=== PATIENT | male | born 1960 | race Caucasian/White ===

== ENCOUNTER 2020-04-26 11:31 | Outpatient (REF) | payer MEDICARE, MEDICAID, SELFPAY ==
[2020-04-26 13:08] LABS: Anion Gap 15 (12-20); Blood Urea Nitrogen 38 mg/dL (9-16); Calcium 9.1 mg/dL (8.4-10.2); Carbon Dioxide 25 mmol/L (22-29); Chloride 104 mmol/L (96-108); Estimated Glomerular Filt Rate 34; Potassium 4.6 mmol/l (3.3-5.1); Sodium 139 mmol/L (135-145)
== END 2020-04-26 11:32 | disposition home or self-care (01) ==
LOC: HO.LAB 11:31
PROVIDERS: PCP Internal Medicine; Visit Provider Internal Medicine Hypertension Specialist
DX: N18.30 Chronic kidney disease, stage 3 unspecified (principal); D63.1 Anemia in chronic kidney disease
CPT/HCPCS: 80051; 82310; 82565; 84520

== ENCOUNTER 2020-05-07 21:12 | Observation (INO) | payer MEDICARE, MEDICAID, SELFPAY ==
--- NOTE | 2020-05-07 | ECG_ITS ---
Test Reason : CP Blood Pressure : / mmHG Vent. Rate : 072 BPM Atrial Rate : 081 BPM P-R Int : 000 ms QRS Dur : 082 ms QT Int : 378 ms P-R-T Axes : 000 -38 126 degrees QTc Int : 413 ms Atrial fibrillation with a competing junctional pacemaker Left anterior fascicular block Inferior infarct , age undetermined ST & T wave abnormality, consider lateral ischemia Abnormal ECG When compared with ECG of 07-MAY-2020 21:17, No significant changes seen Referred By: Generic ED Physician Electronically Signed By:KRISTAL MENDEZ MD
[2020-05-07 22:01] VITALS: BP 125/69; PULSE 69; RESP 17; TEMP 36.3; O2SAT 97; BMI 86.7
--- NOTE | 2020-05-07 22:09 | XR_ITS ---
EXAMINATION: XR CHEST CLINICAL INFORMATION: Chest pain COMPARISON: 01/26/2019 TECHNIQUE: Frontal view of the chest was obtained. FINDINGS: Again seen is cardiomegaly and mild upper zone redistribution suggesting elevated left ventricular end-diastolic pressure and mild pulmonary vascular congestion. No effusions are seen. No infiltrates are seen. Compared to the prior study, appearances are quite similar. XR/XR chest 1V IMPRESSION: Cardiomegaly with mild pulmonary vascular congestion.
--- NOTE | 2020-05-07 22:10 | ED_ITS ---
HPI - Chest Pain General Chief Complaint: Chest Pain Stated Complaint: chest pain Time Seen by Provider: 05/07/20 22:09 History of Present Illness HPI narrative: Patient is a 59-year-old male with a history of CVA. History of diabetes, hypertension. Presents today with having chest pain since yesterday that is on the left side grossly arm associated with shortness of breath. Worsened with ambulation. No cough and no congestion or upper respiratory symptoms. Related Data Home Medications Medication Instructions Recorded Confirmed Humulin R U-500 (Conc) Insulin 6 units SUBCUT DIRECTED 05/08/20 05/08/20 amitriptyline 1 tab PO DAILY 05/08/20 05/08/20 amlodipine-olmesartan 1 tab PO DAILY 05/08/20 05/08/20 atorvastatin 1 tab PO DAILY 05/08/20 05/08/20 digoxin 1 tab PO DAILY 05/08/20 05/08/20 dulaglutide [Trulicity] 1 mg SUBCUT QWEEK 05/08/20 05/08/20 hydralazine 1 tab PO BID 05/08/20 05/08/20 insulin regular hum U-500 conc 18 unit SUBCUT QAM 05/08/20 05/08/20 [Humulin R U-500 (Conc) Insulin] isosorbide mononitrate 1 tab PO DAILY 05/08/20 05/08/20 metoprolol succinate 1 tab PO DAILY 05/08/20 05/08/20 torsemide 20 mg PO DAILY 05/08/20 05/08/20 warfarin 1 - 3 tab PO DAILY 05/08/20 05/08/20 Allergies Allergy/AdvReac Type Severity Reaction Status Date / Time No Known Allergies Allergy Unknown NKDA Unverified 03/18/20 15:01 Review of Systems Review of Systems: Constitutional: No Weight loss, No Fever, No Chills, No Night Sweats, No Fatigue, No Malaise ENT/Mouth: No Hearing loss, No Ear Pain, No Nasal Congestion, No Sinus Pain, No Hoarseness, No sore throat, No Rhinorrhea, No Swallowing Difficulty Eyes: No Eye Pain, No Swelling, No Redness, No Foreign Body, No Discharge, No Vision Changes Cardiovascular: Positive Chest Pain, positive SOB, positive Dyspnea on Exertion, No Orthopnea, No Edema, No Palpitations Respiratory: No Cough, No Sputum, No Wheezing, No Smoke Exposure, No Dyspnea Gastrointestinal: No Nausea, No Vomiting, No Diarrhea, No Constipation, No abdominal Pain, No Hematochezia, No Melena Genitourinary: no irregular bleeding, No Dysuria, No Urinary Frequency, No Hematuria, No Urinary Incontinence, No Urgency, No Flank Pain, No Urinary Flow Changes, No Hesitancy Musculoskeletal: No joint pain, No Myalgias, No Joint Swelling Skin: No Skin Lesions, No rash Neuro: No Weakness, No Numbness, No Paresthesias, No Loss of Consciousness, No Dizziness, No Headache Psych: No Anxiety/Panic, No Depression, No SI/HI/AH/VH, No Social Issues, Heme/Lymph: No Bruising, No Bleeding,No Lymphadenopathy Endocrine: No Polyuria, No Polydipsia, No Temperature Intolerance Yes all other systems are reviewed and are negative [facility] Past Medical History Attestation statement: The following information was validated with the patient. Medical History CHF (congestive heart failure) Diabetes Heart attack HTN (hypertension) Social History Social History Alcohol intake: never Smoked in Last 30 Days: No Use of substances other than those prescribed or required for medical reasons: No Advance Directives: No Advance Directives Information Provided: No Physical Exam Vital Signs: Vital Signs: Last Vital Signs Temp 98.5 F 05/08/20 03:44 Pulse 62 05/08/20 03:44 Resp 18 05/08/20 03:44 BP 138/89 05/08/20 03:44 Pulse Ox 94 05/08/20 03:44 Body Mass Index 86.7 Appearance: Alert. Oriented X3. No acute distress. Eyes: Pupils equal, round and reactive to light. ENT: Pharynx normal. Neck: Normal inspection. Neck supple. No lymph nodes noted. No crepitus CVS: Normal heart rate and rhythm. Pulses normal. Normal S1 and S2 Respiratory: No respiratory distress. Breath sounds normal. No Wheezing. No rales Abdomen: Soft and nontender. No rigidity. No distention. good BS x4 Skin: Skin warm and dry. Normal skin color. Normal skin turgor. Extremities: No lower extremity edema. Neurovascular intact to all extremities. No Lacerations. No Rash Neuro: Oriented X 3. No motor deficit. No sensory deficit. Moving all extermities. No slurred speech MDM - Chest Pain MDM Narrative Medical decision making narrative: Positive atrial fibrillation with chest pain. Patient's 1st set of troponin was negative. Nitro makes a symptom a little better. Will admit patient for further evaluation given history of TIA/CVA history of diabetes poorly controlled. Chest pain radiating to the arm with shortness of breath Medical Records Data Attestation: I reviewed the patient's medical records. Lab Data Attestation: I reviewed the patient's lab results. Result diagrams: 05/07/20 22:14 05/07/20 22:14 Labs: Lab Results 05/07/20 05/07/20 05/07/20 Range/Units 22:14 22:14 22:14 WBC 10.0 (4.8-10.8) X10*3/uL RBC 5.78 (4.60-5.80) X10*6/uL Hgb 15.8 (14.0-18.0) g/dl Hct 50.0 (42-52) % MCV 86.5 (80-98) fL MCH 27.3 (27.0-33.0) pg MCHC 31.6 (31.0-36.0) g/dl RDW 15.3 (11.0-16.0) % Plt Count 329 (160-400) X10*3/uL MPV 9.8 (9.4-12.4) fL Immature Gran % (Auto) 0.6 H (0.0-0.4) % Neut % (Auto) 64.1 (45-73) % Lymph % (Auto) 20.8 (20-40) % [place] % (Auto) 10.3 (2-11) % Eos % (Auto) 3.2 (0-4) % Baso % (Auto) 1.0 (0-2) % Lymph # (Auto) 2.1 (1.2-4.9) X10*3/uL [place] # (Auto) 1.0 (0.1-1.2) X10*3/uL Eos # (Auto) 0.3 (0.0-0.4) X10*3/uL Baso # (Auto) 0.1 (0.0-0.2) X10*3/uL Abs Immat Gran (auto) 0.06 H (0.00-0.03) X10*3/uL Absolute Neuts (auto) 6.4 (2.0-8.3) X10*3/uL Absolute Nucleated RBC 0.000 (0.0-0.012) X10*3/uL Nucleated RBC % (auto) 0.0 (0.0-0.2) /100WBC PT 25.5 H (10.8-13.0) SEC INR 2.1 H (0.9-1.1) Hold Blue Top SEE NOTE Sodium 136 (135-145) mmol/L Potassium 5.4 H (3.3-5.1) mmol/l Chloride 101 (96-108) mmol/L Carbon Dioxide 26 (22-29) mmol/L Anion Gap 14 (12-20) BUN 54 H (9-16) mg/dL Creatinine 2.28 H (0.5-1.4) mg/dL Estim Creat Clear Calc 79.8 Estimated GFR 30 Random Glucose 379 H* (60-115) mg/dL Calcium 8.8 (8.4-10.2) mg/dL Troponin I High Sens (<3.5-35.0) ng/L Digoxin (0.8-2.0) ng/mL Coronavirus (PCR) (Negative) 05/07/20 05/07/20 05/07/20 Range/Units 22:14 22:41 23:14 WBC (4.8-10.8) X10*3/uL RBC (4.60-5.80) X10*6/uL Hgb (14.0-18.0) g/dl Hct (42-52) % MCV (80-98) fL MCH (27.0-33.0) pg MCHC (31.0-36.0) g/dl RDW (11.0-16.0) % Plt Count (160-400) X10*3/uL MPV (9.4-12.4) fL Immature Gran % (Auto) (0.0-0.4) % Neut % (Auto) (45-73) % Lymph % (Auto) (20-40) % [place] % (Auto) (2-11) % Eos % (Auto) (0-4) % Baso % (Auto) (0-2) % Lymph # (Auto) (1.2-4.9) X10*3/uL [place] # (Auto) (0.1-1.2) X10*3/uL Eos # (Auto) (0.0-0.4) X10*3/uL Baso # (Auto) (0.0-0.2) X10*3/uL Abs Immat Gran (auto) (0.00-0.03) X10*3/uL Absolute Neuts (auto) (2.0-8.3) X10*3/uL Absolute Nucleated RBC (0.0-0.012) X10*3/uL Nucleated RBC % (auto) (0.0-0.2) /100WBC PT (10.8-13.0) SEC INR (0.9-1.1) Hold Blue Top Sodium (135-145) mmol/L Potassium (3.3-5.1) mmol/l Chloride (96-108) mmol/L Carbon Dioxide (22-29) mmol/L Anion Gap (12-20) BUN (9-16) mg/dL Creatinine (0.5-1.4) mg/dL Estim Creat Clear Calc Estimated GFR Random Glucose (60-115) mg/dL Calcium (8.4-10.2) mg/dL Troponin I High Sens 16.6 (<3.5-35.0) ng/L Digoxin < 0.3 L (0.8-2.0) ng/mL Coronavirus (PCR) NEGATIVE (Negative) 05/08/20 Range/Units 01:22 WBC (4.8-10.8) X10*3/uL RBC (4.60-5.80) X10*6/uL Hgb (14.0-18.0) g/dl Hct (42-52) % MCV (80-98) fL MCH (27.0-33.0) pg MCHC (31.0-36.0) g/dl RDW (11.0-16.0) % Plt Count (160-400) X10*3/uL MPV (9.4-12.4) fL Immature Gran % (Auto) (0.0-0.4) % Neut % (Auto) (45-73) % Lymph % (Auto) (20-40) % [place] % (Auto) (2-11) % Eos % (Auto) (0-4) % Baso % (Auto) (0-2) % Lymph # (Auto) (1.2-4.9) X10*3/uL [place] # (Auto) (0.1-1.2) X10*3/uL Eos # (Auto) (0.0-0.4) X10*3/uL Baso # (Auto) (0.0-0.2) X10*3/uL Abs Immat Gran (auto) (0.00-0.03) X10*3/uL Absolute Neuts (auto) (2.0-8.3) X10*3/uL Absolute Nucleated RBC (0.0-0.012) X10*3/uL Nucleated RBC % (auto) (0.0-0.2) /100WBC PT (10.8-13.0) SEC INR (0.9-1.1) Hold Blue Top Sodium (135-145) mmol/L Potassium (3.3-5.1) mmol/l Chloride (96-108) mmol/L Carbon Dioxide (22-29) mmol/L Anion Gap (12-20) BUN (9-16) mg/dL Creatinine (0.5-1.4) mg/dL Estim Creat Clear Calc Estimated GFR Random Glucose (60-115) mg/dL Calcium (8.4-10.2) mg/dL Troponin I High Sens 15.1 (<3.5-35.0) ng/L Digoxin (0.8-2.0) ng/mL Coronavirus (PCR) (Negative) ECG Data ECG #1: Attestation: I personally reviewed and interpreted this ECG as follows: ECG interpretation date: 05/07/20 Interpretation: Atrial fibrillation pattern heart rate was approximately 80 with a left axis deviation to Q-waves in the inferior leads. Discharge Plan Discharge Clinical Impression: Chest pain Prescriptions: No Action atorvastatin 80 mg tablet 1 tab PO DAILY RF: 0 torsemide 20 mg tablet 20 mg PO DAILY RF: 0 isosorbide mononitrate 30 mg tablet extended release 24 hr 1 tab PO DAILY RF: 0 warfarin 2.5 mg tablet 1 - 3 tab PO DAILY RF: 0 hydralazine 25 mg tablet 1 tab PO BID RF: 0 amitriptyline 50 mg tablet 1 tab PO DAILY RF: 0 Humulin R U-500 (Conc) Insulin 500 unit/mL solution 18 unit subcut QAM RF: 0 digoxin 125 mcg (0.125 mg) tablet 1 tab PO DAILY RF: 0 metoprolol succinate 25 mg tablet extended release 24 hr 1 tab PO DAILY RF: 0 amlodipine-olmesartan 10-40 mg tablet 1 tab PO DAILY RF: 0 Trulicity 1.5 mg/0.5 mL pen injector 1 mg subcut QWEEK RF: 0 Humulin R U-500 (Conc) Insulin 6 units subcut DIRECTED RF: 0
[2020-05-07 22:22] LABS: MANUAL DIFF FLAG NO
[2020-05-07 22:25] LABS: Basophils Absolute Auto 0.1 X10*3/uL (0.0-0.2); Eosinophils Absolute Auto 0.3 X10*3/uL (0.0-0.4); Eosinophils Percent Auto 3.2 % (0-4); Hemoglobin 15.8 g/dl (14.0-18.0); Imm Gran Abs Auto 0.06 X10*3/uL (0.00-0.03); Imm Gran Pct Auto 0.6 % (0.0-0.4); Lymphocytes Absolute Auto 2.1 X10*3/uL (1.2-4.9); Lymphocytes Percent Auto 20.8 % (20-40); Mean Corpuscular HGB Conc 31.6 g/dl (31.0-36.0); Mean Corpuscular Hemoglobin 27.3 pg (27.0-33.0); Mean Corpuscular Volume 86.5 fL (80-98); Mean Platelet Volume 9.8 fL (9.4-12.4); Monocytes Percent Auto 10.3 % (2-11); Neutrophils Absolute Auto 6.4 X10*3/uL (2.0-8.3); Neutrophils Percent Auto 64.1 % (45-73); Platelet Count 329 X10*3/uL (160-400); Red Blood Count 5.78 X10*6/uL (4.60-5.80); Red Cell Distribution Width 15.3 % (11.0-16.0)
[2020-05-07 22:29] VITALS: BP 136/71; PULSE 65
[2020-05-07] MEDS: Nitroglycerin 2 % Oint 1 GM Packet 1 INCH TRANSDERMA (22:29)
[2020-05-07] MEDS: Aspirin 81 MG TAB.CHEW 324 MG PO (22:29)
[2020-05-07 22:30] VITALS: BP 136/71; PULSE 66; RESP 18; O2SAT 99
[2020-05-07 22:47] LABS: Anion Gap 14 (12-20); Blood Urea Nitrogen 54 mg/dL (9-16); Calcium 8.8 mg/dL (8.4-10.2); Carbon Dioxide 26 mmol/L (22-29); Chloride 101 mmol/L (96-108); Creatinine Clr Calc Pharmacy 79.8; Estimated Glomerular Filt Rate 30; Glucose Random 379 mg/dL (60-115); Potassium 5.4 mmol/l (3.3-5.1); Sodium 136 mmol/L (135-145)
[2020-05-07 22:49] LABS: INTERNATIONAL NORM RATIO 2.1 (0.9-1.1); Prothrombin Time 25.5 SEC (10.8-13.0); Troponin-I High Sensitivity 16.6 ng/L (<3.5-35.0)
--- NOTE | 2020-05-07 22:50 | PC.NURSE ---
PT COMING FROM HOME VIA PRIVATE VEHICLE FOR COMPLAINTS OF PAIN X 2 DAYS. YESTERDAY PAIN WAS JUST IN LEFT SHOULDER. TODAY PAIN BECAME WORSE IN CHEST RADIATING TO LEFT ARM AND MAKING LEFT ARM NUMB. PT ARRIVES ALERT AND ORIENTED. NEURO INTACT. PT HAS HX OF DIABETES, HEART ATTACK, STROKE. PT VITALS WNL. LINED AND LABBED. GIVEN 324 ASA CHEWABLE AND 1 INCH NITRO APPLIED TO LEFT CHEST.
--- NOTE | 2020-05-07 23:12 | PC.NURSE ---
PT STATES NO RELIEF FROM NITRO PASTE. SWABBED FOR COVID,.
[2020-05-07 23:49] LABS: Digoxin < 0.3 ng/mL (0.8-2.0)
[2020-05-08] VITALS (12 sets, daily range): BP systolic 99–168; BP diastolic 58–89; PULSE 62–72; RESP 18–20; TEMP 36.3–37.2; O2SAT 90–99; BMI 40.6
--- NOTE | 2020-05-08 | CT_ITS ---
EXAMINATION: CT HEAD WITHOUT CONTRAST CLINICAL INFORMATION: Left arm numbness COMPARISON: CT head 01/26/2019 TECHNIQUE: Contiguous axial imaging was performed from the skull base to vertex without intravenous administration of contrast. This CT examination was performed using dose optimization techniques as appropriate, variously including the following: *Automated exposure control *Adjustment of mA and/or kV according to patient size (this includes techniques or standardized protocols for targeted exams where dose is matched to indication/reason for exam; i.e. extremities or head) *Use of iterative reconstruction technique DLP: 747 mGy-cm FINDINGS: Old infarct with focal encephalomalacia stable since prior exam involving the left posterior occipital lobe. There is no evidence of acute intracranial hemorrhage or acute territorial infarction. No abnormal mass effect or midline shift is seen. Reis to white matter differentiation is well preserved. No extra-axial fluid collections are identified. There is mild age-appropriate atrophy with prominence of the ventricles and the sulci. There are vascular calcifications of the internal carotid arteries bilaterally. The osseous structures and soft tissues are normal. The mastoid air cells and visualized portions of the paranasal sinuses are well aerated. CT/CT head/brain wo con IMPRESSION: No acute intracranial pathology. Chronic left [employer] territory infarct. No change since prior CAT scan 01/26/2019.
[2020-05-08] MEDS: HYDROmorphone HCl 0.5 MG/0.5 ML SYRINGE IVPUSH ×2 (00:17→04:28)
[2020-05-08 00:27] LABS: SARS COV2 PCR INHOUSE NEGATIVE (Negative)
--- NOTE | 2020-05-08 01:33 | PC.NURSE ---
pt repeat troponin sent. vitals wnl. nad noted. pain improved from dilaudid
[2020-05-08 02:30] LABS: Troponin-I High Sensitivity 15.1 ng/L (<3.5-35.0)
--- NOTE | 2020-05-08 03:44 | PC.NURSE ---
water given per request. pt states pain is coming back. otherwise nad vitals wnl
[2020-05-08] MEDS: Sodium Polystyrene Sulfon/Sorb 15 GM/60 ML ORAL.SUSP PO (04:15)
--- NOTE | 2020-05-08 04:16 | PM.IMHP ---
History of Present Illness Date of Service: 05/08/20 Chief Complaint: chest pain 59 y/o male with an extensive PMHX including CAD s/p ID in the past who presented from home c/o chest pain. Per history provided by the patient, for the past 2 days has been having a constant chest pain, pressure like, 8/10 in intensity, radiating to the left arm, associated with numbness, at rest. On presentation to the ED patient is found to be hemodynamically stable, no evidence of leukocytosis on cbc, INR 2.1 (therapeutic), K of 5.5 (s/p kayexalate per ED), creatinine of 2.28 (baseline), Firs troponin neg, Second pending. Decision for admission given significant cardiac hx and concerning symptoms for ACS. Patient seen and examined at the bedside, laying down in bed in no acute distress. ROS as above otherwise negative. Physical exam unremarkable. PMHX: 1- HTN 2-CAD with prior ID in the 3-DM 4-Afib on AC 5-Sleep apnea secondary to obesity hypoventilation syndrome 6-HLP 7-Peripheral neuropathy 8-CVA with minimal residual deficit in the past 9-polycythemia vera 10-diabetic foot ulcer s/p left foot toe removal 11- CHF with EF of 35% 12- CKD PSx: s/p cholecystectomy Toxic habits: No hx of alcohol abuse, smoking or IVDA Review of Systems Cardiovascular: Cardiovascular: Reports chest pain at rest Neurologic: Reports other (left upper extremity numbness when has chest pain) [facility] Medical History (Updated 05/08/20 @ 04:34 by Vincent Robins MD) CHF (congestive heart failure) Diabetes Heart attack HTN (hypertension) Functional capacity: independent ambulation Social History Alcohol intake: never Smoked in Last 30 Days: No Use of substances other than those prescribed or required for medical reasons: No Advance Directives: No Advance Directives Information Provided: No Meds Allergies Allergy/AdvReac Type Severity Reaction Status Date / Time No Known Allergies Allergy Unknown NKDA Unverified 03/18/20 15:01 Home Medications Medication Instructions Recorded Confirmed Type Humulin R U-500 (Conc) Insulin 6 units SUBCUT DIRECTED 05/08/20 05/08/20 History amitriptyline 1 tab PO DAILY 05/08/20 05/08/20 History amlodipine-olmesartan 1 tab PO DAILY 05/08/20 05/08/20 History atorvastatin 1 tab PO DAILY 05/08/20 05/08/20 History digoxin 1 tab PO DAILY 05/08/20 05/08/20 History dulaglutide [Trulicity] 1 mg SUBCUT QWEEK 05/08/20 05/08/20 History hydralazine 1 tab PO BID 05/08/20 05/08/20 History insulin regular hum U-500 conc 18 unit SUBCUT QAM 05/08/20 05/08/20 History [Humulin R U-500 (Conc) Insulin] isosorbide mononitrate 1 tab PO DAILY 05/08/20 05/08/20 History metoprolol succinate 1 tab PO DAILY 05/08/20 05/08/20 History torsemide 20 mg PO DAILY 05/08/20 05/08/20 History warfarin 1 - 3 tab PO DAILY 05/08/20 05/08/20 History Physical Exam Vital Signs and Narrative: Vital Signs: Last Vital Signs Temp 98.5 F 05/08/20 03:44 Pulse 62 05/08/20 03:44 Resp 18 05/08/20 03:44 BP 138/89 05/08/20 03:44 Pulse Ox 94 05/08/20 03:44 Body Mass Index 86.7 Const: General: cooperative, comfortable and no acute distress Orientation/consciousness: oriented to person, oriented to place, oriented to time and patient oriented x3 HENMT: Head: Yes normal to inspection Eyes: General: appearance normal, both eyes and all related structures Neck: Yes normal visual inspection Chest: Chest palpation & inspection: normal inspection of the chest Resp: Effort & Inspection: normal respiratory effort Cardio: Jugular venous distension: no JVD Rate: regular rate Rhythm: regular rhythm Heart sounds: S1 normal heart sound present and S2 normal heart sound present GI: Inspection: Yes normal to inspection Skin: General skin exam: no rashes or lesions noted Neuro: General: oriented to person, oriented to place, oriented to time and patient oriented x3 Motor exam (neuro): 5/5 motor strength present throughout Extrem: Left upper extremity: normal to inspection Psych: Appearance: grossly normal Results Labs CBC and Chem 7: 05/07/20 22:14 05/07/20 22:14 Labs: Laboratory Results - last 24 hr 05/07/20 05/07/20 05/07/20 22:14 22:14 22:14 MCV 86.5 MCH 27.3 MCHC 31.6 RDW 15.3 Plt Count 329 MPV 9.8 Immature Gran % (Auto) 0.6 H Neut % (Auto) 64.1 Lymph % (Auto) 20.8 [place] % (Auto) 10.3 Eos % (Auto) 3.2 Baso % (Auto) 1.0 Lymph # (Auto) 2.1 [place] # (Auto) 1.0 Eos # (Auto) 0.3 Baso # (Auto) 0.1 Abs Immat Gran (auto) 0.06 H Absolute Neuts (auto) 6.4 Absolute Nucleated RBC 0.000 Nucleated RBC % (auto) 0.0 PT 25.5 H INR 2.1 H Hold Blue Top SEE NOTE Anion Gap 14 Estim Creat Clear Calc 79.8 Estimated GFR 30 Random Glucose 379 H* Calcium 8.8 Troponin I High Sens Digoxin Coronavirus (PCR) 05/07/20 05/07/20 05/07/20 22:14 22:41 23:14 MCV MCH MCHC RDW Plt Count MPV Immature Gran % (Auto) Neut % (Auto) Lymph % (Auto) [place] % (Auto) Eos % (Auto) Baso % (Auto) Lymph # (Auto) [place] # (Auto) Eos # (Auto) Baso # (Auto) Abs Immat Gran (auto) Absolute Neuts (auto) Absolute Nucleated RBC Nucleated RBC % (auto) PT INR Hold Blue Top Anion Gap Estim Creat Clear Calc Estimated GFR Random Glucose Calcium Troponin I High Sens 16.6 Digoxin < 0.3 L Coronavirus (PCR) NEGATIVE 05/08/20 01:22 MCV MCH MCHC RDW Plt Count MPV Immature Gran % (Auto) Neut % (Auto) Lymph % (Auto) [place] % (Auto) Eos % (Auto) Baso % (Auto) Lymph # (Auto) [place] # (Auto) Eos # (Auto) Baso # (Auto) Abs Immat Gran (auto) Absolute Neuts (auto) Absolute Nucleated RBC Nucleated RBC % (auto) PT INR Hold Blue Top Anion Gap Estim Creat Clear Calc Estimated GFR Random Glucose Calcium Troponin I High Sens 15.1 Digoxin Coronavirus (PCR) Imaging Radiologist's Impressions: Impressions Chest X-Ray 05/07/20 22:09 IMPRESSION: Cardiomegaly with mild pulmonary vascular congestion. Assessment and Plan (1) Chest pain: Status: Acute s/p nitro, dilaudid and aspirin 324 mg tablet per ED At present patient reports that continues with chest pain but is minimal compared to presentation Troponin neg x 1, second pending Follow up 2D echo in the am continue with aspirin home dose continue with nitroglycerin home dose Observation Cardiology consult in the am (2) CHF (congestive heart failure): Status: Acute continue with torsemide home dose monitor i and O's daily weights (3) HTN (hypertension): Status: Acute continue with amlodipine home dose continue with hydralazine home dose (4) Diabetes: Status: Acute Insulin regimen as ordered diabetic diet POCT glucose ACHS (5) Psychotic disorder: Status: Acute continue with amitryptiline home dose (6) Hyperlipidemia: Status: Acute continue with statin home dose (7) Afib: Status: Acute INR therapeutic continue with coumadin home dose continue with metoprolol home dose for rate control continue with digoxin home dose
--- NOTE | 2020-05-08 04:52 | PC.NURSE ---
report given at this time.
[2020-05-08 07:26] LABS: INTERNATIONAL NORM RATIO 2.1 (0.9-1.1); Prothrombin Time 25.1 SEC (10.8-13.0)
[2020-05-08 07:40] LABS: Glucose, Whole Blood 241 mg/dL (60-115)
[2020-05-08 08:10] LABS: Anion Gap 13 (12-20); Blood Urea Nitrogen 52 mg/dL (9-16); Calcium 8.5 mg/dL (8.4-10.2); Carbon Dioxide 29 mmol/L (22-29); Chloride 102 mmol/L (96-108); Creatinine Clr Calc Pharmacy 56.1; Estimated Glomerular Filt Rate 34; Glucose Random 237 mg/dL (60-115); Potassium 4.9 mmol/l (3.3-5.1); Sodium 139 mmol/L (135-145)
[2020-05-08] MEDS: Insulin Lispro 100 UNIT/ML 3 ML VIAL SUBCUT ×4 (08:13→20:52)
[2020-05-08] MEDS: Morphine Sulfate 2 MG/ML CARTRIDGE IVPUSH (08:40)
[2020-05-08] MEDS: 0.9 % Sodium Chloride Flush 3 ML SYRINGE IVFLUSH ×2 (08:41→15:59)
[2020-05-08] MEDS: Digoxin 0.125 MG TABLET PO (09:35)
[2020-05-08] MEDS: Amitriptyline HCl 50 MG TABLET PO (09:35)
[2020-05-08] MEDS: amLODIPine Besylate 10 MG TABLET PO (09:36)
[2020-05-08] MEDS: Atorvastatin Calcium 80 MG TABLET PO (09:36)
[2020-05-08] MEDS: Torsemide 20 MG TABLET PO (09:36)
[2020-05-08] MEDS: hydrALAZINE HCl 25 MG TABLET PO ×2 (09:37→20:37)
[2020-05-08] MEDS: Isosorbide Mononitrate 30 MG TAB.ER.24H PO (09:37)
--- NOTE | 2020-05-08 09:49 | MHC.CM.PN ---
CM met with Patient. Patient lives in a house with his 3 Caretakers (Funded by [facility], [facility])and he is functionally independent. Patient's O2 and CPAP are supplied through [facility]. Patient's goal is to return home with resumption of his present services and CM has initiated and will follow for dc planning. PCP is Dr. Jcarlos Melgar. ASIM addressed with Patient and original has been given to him and a copy has been placed on the chart.
--- NOTE | 2020-05-08 11:08 | PM.CNNEP ---
History of Present Illness Reason for Consult Consult date: 05/08/20 Reason for consult: ckd Chief Complaint Chief complaint: chest pain R/O ACS History of Present Illness Narrative: PT known to Dr Forbes for his CKD and now adm with MELISSA garduno. Getting card eval. No GH/dysuria. Breathing OK. 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 as cause of CKD Review of Systems Reports other (left upper extremity numbness when has chest pain) [facility] Past Medical History Medical History (Updated 05/08/20 @ 04:34 by Vincent Robins MD) CHF (congestive heart failure) Diabetes Heart attack HTN (hypertension) Functional capacity: independent ambulation Social History Social History Household Members: Caregiver Housing: House Do you presently have visiting nurse or other home services: Yes Alcohol intake: never Smoking Status: Never smoker Smoked in Last 30 Days: No Use of substances other than those prescribed or required for medical reasons: No Have you been hit, kicked, punched, or otherwise hurt by someone within the past year? If so, by whom?: No Do you feel safe in your current relationship?: No Current Relationship Is there a partner from a previous relationship who is making you feel unsafe now?: No Are you made to feel afraid or neglected: No Advance Directives: No Advance Directives Information Provided: No Do you have thoughts of harming others: None Do you have a plan to hurt others: No Plan Recently lost weight without trying: No service: No Current occupational status: disabled Meds Allergies Allergy/AdvReac Type Severity Reaction Status Date / Time No Known Allergies Allergy Unknown NKDA Verified 05/08/20 05:14 Home Medications Medication Instructions Recorded Confirmed Type Humulin R U-500 (Conc) Insulin 6 units SUBCUT DIRECTED 05/08/20 05/08/20 History amitriptyline 1 tab PO DAILY 05/08/20 05/08/20 History amlodipine-olmesartan 1 tab PO DAILY 05/08/20 05/08/20 History atorvastatin 1 tab PO DAILY 05/08/20 05/08/20 History digoxin 1 tab PO DAILY 05/08/20 05/08/20 History dulaglutide [Trulicity] 1 mg SUBCUT QWEEK 05/08/20 05/08/20 History hydralazine 1 tab PO BID 05/08/20 05/08/20 History insulin regular hum U-500 conc 18 unit SUBCUT QAM 05/08/20 05/08/20 History [Humulin R U-500 (Conc) Insulin] isosorbide mononitrate 1 tab PO DAILY 05/08/20 05/08/20 History metoprolol succinate 1 tab PO DAILY 05/08/20 05/08/20 History torsemide 20 mg PO DAILY 05/08/20 05/08/20 History warfarin 1 - 3 tab PO DAILY 05/08/20 05/08/20 History Physical Exam Vital Signs: Last Vital Signs Temp 97.4 F 05/08/20 07:44 Pulse 72 05/08/20 09:36 Resp 18 05/08/20 07:44 BP 153/75 H 05/08/20 09:36 Pulse Ox 94 05/08/20 07:44 Body Mass Index 40.6 Appearance: Alert. Oriented X3. No acute distress. Eyes: Pupils equal, round and reactive to light. ENT: Pharynx normal. Neck: Normal inspection. Neck supple. No lymph nodes noted. No crepitus CVS: Normal heart rate and rhythm. Pulses normal. Normal S1 and S2 Respiratory: No respiratory distress. Breath sounds normal. No Wheezing. No rales Abdomen: Soft and nontender. No rigidity. No distention. good BS x4 Skin: Skin warm and dry. Normal skin color. Normal skin turgor. Extremities: No lower extremity edema. Neurovascular intact to all extremities. No Lacerations. No Rash Neuro: Oriented X 3. No motor deficit. No sensory deficit. Moving all extermities. No slurred speech Const General: cooperative, comfortable and no acute distress Orientation/consciousness: oriented to person, oriented to place, oriented to time and patient oriented x3 HENMT Head: Yes normal to inspection Eyes General: appearance normal, both eyes and all related structures Neck Neck: Yes normal visual inspection Chest Chest palpation & inspection: normal inspection of the chest Resp Effort & Inspection: normal respiratory effort Cardio Jugular venous distension: no JVD Rate: regular rate Rhythm: regular rhythm Heart sounds: S1 normal heart sound present and S2 normal heart sound present GI Inspection: Yes normal to inspection Skin General skin exam: no rashes or lesions noted Neuro General: oriented to person, oriented to place, oriented to time and patient oriented x3 Motor exam (neuro): 5/5 motor strength present throughout Extrem Left upper extremity: normal to inspection Psych Appearance: grossly normal Results Lab Results Result Diagrams: 05/07/20 22:14 05/08/20 05:55 Lab results: Chemistry 05/07/20 05/08/20 22:14 05:55 Sodium 136 139 Potassium 5.4 H 4.9 Carbon Dioxide 26 29 BUN 54 H 52 H Creatinine 2.28 H 2.01 H Calcium 8.8 8.5 Hematology 05/07/20 22:14 WBC 10.0 Hgb 15.8 Plt Count 329 Assessment and Plan (1) Chest pain: Status: Acute (2) CHF (congestive heart failure): Status: Acute (3) HTN (hypertension): Status: Acute (4) Diabetes: Status: Acute (5) Psychotic disorder: Status: Acute (6) Hyperlipidemia: Status: Acute (7) Afib: Status: Acute 1. NIRAJ: multifact and SCr decr back to bsl 2. CKD 3: SCr 1.5-2.0; c/w DN 3. CP: w/u in progress 4. DM 5. HyperK: resolved off ARB 6. HTN: slt elevated and may need to incr BP meds REC: cint to hold arb for now; check Up/Cr ratio ( I will order); follw UOP/renal func;a void NSAIDs; protect non-dominat arm
--- NOTE | 2020-05-08 11:09 | PM.CNCAR ---
History of Present Illness History of Present Illness Date of Consult: May 08, 2020 Requesting physician: Craig Chappell Chief complaint: chest pain R/O ACS Narrative: 59-year-old gentleman with cardiomyopathy and ejection fraction of 30% who follows with Dr. Gigi Santiago in [place]. He said he had myocardial infarction when he was 22 years old. He is saying he also had a recent cardiac catheterization at [facility] when he was told that he has mild coronary artery disease. It appears he has nonischemic cardiomyopathy by his description. He also has atrial fibrillation and has been on Coumadin. He has background of stroke, hypertension, diabetes and psychotic disorder. He is now presenting because he has been experiencing a left-sided pressure-like feeling for more than 24 hours. He also has left arm numbness which has accompanied the chest discomfort. He has never had chest discomfort before. When he was 22 years old he reports that he had a heart attack but does not remember what symptoms he had then. By his report he did not have evidence of significant coronary disease on recent cardiac catheterization. He denies any indigestion or reflux like symptoms. He denies any dyspnea right now and denies orthopnea. He is reporting compliance with medications. Review of Systems Review of Systems: Persistent chest discomfort and left arm numbness for more than 24 hours. Neurologic: Reports other (left upper extremity numbness when has chest pain) [facility] Past Medical History Medical History (Updated 05/08/20 @ 11:16 by Coleman Burnett MD) CHF (congestive heart failure) Diabetes Heart attack HTN (hypertension) Functional capacity: independent ambulation Social History Social History Household Members: Caregiver Housing: House Do you presently have visiting nurse or other home services: Yes Alcohol intake: never Smoking Status: Never smoker Smoked in Last 30 Days: No Use of substances other than those prescribed or required for medical reasons: No Have you been hit, kicked, punched, or otherwise hurt by someone within the past year? If so, by whom?: No Do you feel safe in your current relationship?: No Current Relationship Is there a partner from a previous relationship who is making you feel unsafe now?: No Are you made to feel afraid or neglected: No Advance Directives: No Advance Directives Information Provided: No Do you have thoughts of harming others: None Do you have a plan to hurt others: No Plan Recently lost weight without trying: No service: No Current occupational status: disabled [employer] Allergies Allergy/AdvReac Type Severity Reaction Status Date / Time No Known Allergies Allergy Unknown NKDA Verified 05/08/20 05:14 Home Medications Medication Instructions Recorded Confirmed Type Humulin R U-500 (Conc) Insulin 6 units SUBCUT DIRECTED 05/08/20 05/08/20 History amitriptyline 1 tab PO DAILY 05/08/20 05/08/20 History amlodipine-olmesartan 1 tab PO DAILY 05/08/20 05/08/20 History atorvastatin 1 tab PO DAILY 05/08/20 05/08/20 History digoxin 1 tab PO DAILY 05/08/20 05/08/20 History dulaglutide [Trulicity] 1 mg SUBCUT QWEEK 05/08/20 05/08/20 History hydralazine 1 tab PO BID 05/08/20 05/08/20 History insulin regular hum U-500 conc 18 unit SUBCUT QAM 05/08/20 05/08/20 History [Humulin R U-500 (Conc) Insulin] isosorbide mononitrate 1 tab PO DAILY 05/08/20 05/08/20 History metoprolol succinate 1 tab PO DAILY 05/08/20 05/08/20 History torsemide 20 mg PO DAILY 05/08/20 05/08/20 History warfarin 1 - 3 tab PO DAILY 05/08/20 05/08/20 History Physical Exam Vital Signs: Vital Signs: Last Vital Signs Temp 97.4 F 05/08/20 07:44 Pulse 72 05/08/20 09:36 Resp 18 05/08/20 07:44 BP 153/75 H 05/08/20 09:36 Pulse Ox 94 05/08/20 07:44 Body Mass Index 40.6 GENERAL APPEARANCE: in no acute distress, well developed, well nourished. HEENT: unremarkable. HEAD: normocephalic, atraumatic. NECK/THYROID: no carotid bruit, no jugular venous distention. SKIN: no suspicious lesions, warm and dry. HEART: no murmurs, irregularly irregular rhythm, S1, S2 normal. LUNGS: clear to auscultation bilaterally. ABDOMEN: normal, bowel sounds present, soft, nontender, nondistended. EXTREMITIES: no clubbing, cyanosis, or edema. PERIPHERAL PULSES: equal. NEUROLOGIC: nonfocal, alert and oriented. PSYCH: mood/affect full range. Results Labs and Meds Result diagrams: 05/07/20 22:14 05/08/20 05:55 Lab results: Laboratory Results - last 24 hr 05/07/20 05/07/20 05/07/20 22:14 22:14 22:14 WBC 10.0 RBC 5.78 Hgb 15.8 Hct 50.0 MCV 86.5 MCH 27.3 MCHC 31.6 RDW 15.3 Plt Count 329 MPV 9.8 Immature Gran % (Auto) 0.6 H Neut % (Auto) 64.1 Lymph % (Auto) 20.8 Petroleum % (Auto) 10.3 Eos % (Auto) 3.2 Baso % (Auto) 1.0 Lymph # (Auto) 2.1 Petroleum # (Auto) 1.0 Eos # (Auto) 0.3 Baso # (Auto) 0.1 Abs Immat Gran (auto) 0.06 H Absolute Neuts (auto) 6.4 Absolute Nucleated RBC 0.000 Nucleated RBC % (auto) 0.0 PT 25.5 H INR 2.1 H Hold Blue Top SEE NOTE Sodium 136 Potassium 5.4 H Chloride 101 Carbon Dioxide 26 Anion Gap 14 BUN 54 H Creatinine 2.28 H Estim Creat Clear Calc 79.8 Estimated GFR 30 POC Glucose Random Glucose 379 H* Calcium 8.8 Troponin I High Sens Digoxin Coronavirus (PCR) 05/07/20 05/07/20 05/07/20 22:14 22:41 23:14 WBC RBC Hgb Hct MCV MCH MCHC RDW Plt Count MPV Immature Gran % (Auto) Neut % (Auto) Lymph % (Auto) Petroleum % (Auto) Eos % (Auto) Baso % (Auto) Lymph # (Auto) Petroleum # (Auto) Eos # (Auto) Baso # (Auto) Abs Immat Gran (auto) Absolute Neuts (auto) Absolute Nucleated RBC Nucleated RBC % (auto) PT INR Hold Blue Top Sodium Potassium Chloride Carbon Dioxide Anion Gap BUN Creatinine Estim Creat Clear Calc Estimated GFR POC Glucose Random Glucose Calcium Troponin I High Sens 16.6 Digoxin < 0.3 L Coronavirus (PCR) NEGATIVE 05/08/20 05/08/20 05/08/20 01:22 05:55 05:55 WBC RBC Hgb Hct MCV MCH MCHC RDW Plt Count MPV Immature Gran % (Auto) Neut % (Auto) Lymph % (Auto) Petroleum % (Auto) Eos % (Auto) Baso % (Auto) Lymph # (Auto) Petroleum # (Auto) Eos # (Auto) Baso # (Auto) Abs Immat Gran (auto) Absolute Neuts (auto) Absolute Nucleated RBC Nucleated RBC % (auto) PT 25.1 H INR 2.1 H Hold Blue Top Sodium 139 Potassium 4.9 Chloride 102 Carbon Dioxide 29 Anion Gap 13 BUN 52 H Creatinine 2.01 H Estim Creat Clear Calc 56.1 Estimated GFR 34 POC Glucose Random Glucose 237 H D Calcium 8.5 Troponin I High Sens 15.1 Digoxin Coronavirus (PCR) 05/08/20 07:31 WBC RBC Hgb Hct MCV MCH MCHC RDW Plt Count MPV Immature Gran % (Auto) Neut % (Auto) Lymph % (Auto) Petroleum % (Auto) Eos % (Auto) Baso % (Auto) Lymph # (Auto) Petroleum # (Auto) Eos # (Auto) Baso # (Auto) Abs Immat Gran (auto) Absolute Neuts (auto) Absolute Nucleated RBC Nucleated RBC % (auto) PT INR Hold Blue Top Sodium Potassium Chloride Carbon Dioxide Anion Gap BUN Creatinine Estim Creat Clear Calc Estimated GFR POC Glucose 241 H Random Glucose Calcium Troponin I High Sens Digoxin Coronavirus (PCR) EKG Interpretation EKG Comments: ECG from 05/07/2020 showing atrial fibrillation, left axis deviation, anterolateral infarct, inferior infarct. QTC 413 milliseconds. Assessment and Plan (1) Afib: Status: Acute (2) Chest pain: Status: Acute (3) CHF (congestive heart failure): Status: Acute (4) Left arm numbness: Status: Acute 59-year-old gentleman who is presenting with left arm numbness and left-sided pressure-like feeling in the chest. High sensitivity troponin level of 16.6 and 15.1. He currently has ongoing chest discomfort and left arm numbness. He is not weak in the left arm. He has strong pulse in the left arm and there is no evidence of any bruits in the supraclavicular area or carotid regions. He has never had this similar chest discomfort before. I think the chest discomfort is noncardiac. He does not need further testing for this. It is likely due to acid reflux or esophageal spasm. His blood pressure is mildly elevated. I think his hydralazine should be increased to 25 mg 3 times a day and titrated up based on his blood pressure response. He has known history of cardiomyopathy. His dig level is 0.3. I think he can continue digoxin as before. He is rate controlled with atrial fibrillation right now. In terms of his left arm numbness, this needs further testing and Neurology input. He has known history of stroke in the past. Currently he is therapeutic on Coumadin. Thank you for allowing me to participate in the care of your patient. Please feel free to contact me if you have any questions.
[2020-05-08 11:43] LABS: Glucose, Whole Blood 268 mg/dL (60-115)
[2020-05-08] MEDS: Metoprolol Succinate ER 25 MG TAB.ER.24H PO (11:44)
[2020-05-08] MEDS: ondansetron HCL 4 MG/2 ML VIAL IVPUSH (12:38)
[2020-05-08 15:57] LABS: Glucose, Whole Blood 238 mg/dL (60-115)
[2020-05-08] MEDS: Warfarin Sodium 2.5 MG TABLET PO (17:28)
[2020-05-08 17:41] LABS: Creatinine Urine 74.14 mg/dL
[2020-05-08 17:43] LABS: Total Protein Urine Random 46 mg/dL (<12)
[2020-05-08 20:48] LABS: Glucose, Whole Blood 254 mg/dL (60-115)
[2020-05-09] VITALS (8 sets, daily range): BP systolic 122–141; BP diastolic 74–87; PULSE 76–81; RESP 18–20; TEMP 36.4–37; O2SAT 92–97
[2020-05-09] MEDS: 0.9 % Sodium Chloride Flush 3 ML SYRINGE IVFLUSH ×2 (00:05→09:02)
[2020-05-09] MEDS: Morphine Sulfate 2 MG/ML CARTRIDGE IVPUSH (00:08)
[2020-05-09 07:11] LABS: MANUAL DIFF FLAG NO
[2020-05-09 07:21] LABS: Glucose, Whole Blood 185 mg/dL (60-115)
[2020-05-09 07:23] LABS: Basophils Absolute Auto 0.1 X10*3/uL (0.0-0.2); Basophils Percent Auto 0.5 % (0-2); Eosinophils Absolute Auto 0.3 X10*3/uL (0.0-0.4); Eosinophils Percent Auto 2.7 % (0-4); Hemoglobin 14.9 g/dl (14.0-18.0); Imm Gran Abs Auto 0.03 X10*3/uL (0.00-0.03); Imm Gran Pct Auto 0.3 % (0.0-0.4); Lymphocytes Absolute Auto 1.5 X10*3/uL (1.2-4.9); Lymphocytes Percent Auto 13.3 % (20-40); Mean Corpuscular HGB Conc 31.7 g/dl (31.0-36.0); Mean Corpuscular Hemoglobin 27.5 pg (27.0-33.0); Mean Corpuscular Volume 86.7 fL (80-98); Mean Platelet Volume 10.1 fL (9.4-12.4); Monocytes Absolute Auto 1.1 X10*3/uL (0.1-1.2); Monocytes Percent Auto 9.6 % (2-11); Neutrophils Absolute Auto 8.1 X10*3/uL (2.0-8.3); Neutrophils Percent Auto 73.6 % (45-73); Platelet Count 282 X10*3/uL (160-400); Red Blood Count 5.42 X10*6/uL (4.60-5.80)
[2020-05-09] MEDS: hydrALAZINE HCl 25 MG TABLET PO (08:59)
[2020-05-09] MEDS: Metoprolol Succinate ER 25 MG TAB.ER.24H PO (08:59)
[2020-05-09] MEDS: Digoxin 0.125 MG TABLET PO (09:00)
[2020-05-09] MEDS: Amitriptyline HCl 50 MG TABLET PO (09:01)
[2020-05-09] MEDS: Atorvastatin Calcium 80 MG TABLET PO (09:01)
[2020-05-09] MEDS: Torsemide 20 MG TABLET PO (09:01)
[2020-05-09] MEDS: amLODIPine Besylate 10 MG TABLET PO (09:01)
[2020-05-09] MEDS: Isosorbide Mononitrate 30 MG TAB.ER.24H PO (09:06)
[2020-05-09 10:41] LABS: INTERNATIONAL NORM RATIO 1.9 (0.9-1.1); Prothrombin Time 22.2 SEC (10.8-13.0)
--- NOTE | 2020-05-09 10:55 | P.DS_ITS ---
DS: Providers Provider Date of admission: 05/08/20 04:12 Primary care physician: Jcarlos Melgar MD Consults: 05/08/20 04:47 Consult to Cardiology Routine Consulting Provider: [facility] Reason for consultation: r/o NSTEMI Has provider been notified: No Consult to Nephrology Routine Consulting Provider: [facility] Reason for consultation: CKD Has provider been notified: No 05/08/20 11:11 Consult to Neurology Routine Consulting Provider: [facility] Reason for consultation: left arm numbness Has provider been notified: Yes DS: Diagnosis Discharge Diagnosis (1) Afib: Status: Acute (2) Chest pain: Status: Acute (3) CHF (congestive heart failure): Status: Acute (4) Left arm numbness: Status: Acute DS: Summary Hospital Course Hospital Course: See H and P for detail. He is a 59 year male with diabetes, HTN, HLD, history AFIB and prior stroke and presented with chest pain, and numbness in arm. Work up with ECG and troponin were unremarkable and was seen by Cardiology with no further intervention advised. He had head CT showing no evidence of acute disease. All symptoms have resolved. He will continue his home medications and follow up with PCP on outpatient basis. Patient is comfortable with plan to go home. Of note he has chronic nause and vomitting since last stroke and delcine further work upiwth CT. Time Spent with Patient Time attestation: Total time spent providing and/or coordinating discharge services: Physical Exam Vital Signs: Vital Signs: Last Vital Signs Temp 97.6 F 05/09/20 07:54 Pulse 81 05/09/20 09:06 Resp 18 05/09/20 07:54 BP 141/87 H 05/09/20 09:06 Pulse Ox 97 05/09/20 07:54 Body Mass Index 40.6 General: AO X 3, no acute distress Resp: CTA bilateral CVS: S1,S2,RRR GI: +BS, NT, no distention Skin: No rash Neuro: motor grossly intact, no numbess Psych: appropriate affect DS: Data Data Completed and Pending Labs on day of discharge: WBC 11.0 X10*3/uL (4.8-10.8) H 05/09/20 06:50 RBC 5.42 X10*6/uL (4.60-5.80) 05/09/20 06:50 Hgb 14.9 g/dl (14.0-18.0) 05/09/20 06:50 Hct 47.0 % (42-52) 05/09/20 06:50 MCV 86.7 fL (80-98) 05/09/20 06:50 MCH 27.5 pg (27.0-33.0) 05/09/20 06:50 MCHC 31.7 g/dl (31.0-36.0) 05/09/20 06:50 RDW 15.0 % (11.0-16.0) 05/09/20 06:50 Plt Count 282 X10*3/uL (160-400) 05/09/20 06:50 MPV 10.1 fL (9.4-12.4) 05/09/20 06:50 Immature Gran % (Auto) 0.3 % (0.0-0.4) 05/09/20 06:50 Neut % (Auto) 73.6 % (45-73) H 05/09/20 06:50 Lymph % (Auto) 13.3 % (20-40) L 05/09/20 06:50 [place] % (Auto) 9.6 % (2-11) 05/09/20 06:50 Eos % (Auto) 2.7 % (0-4) 05/09/20 06:50 Baso % (Auto) 0.5 % (0-2) 05/09/20 06:50 Lymph # (Auto) 1.5 X10*3/uL (1.2-4.9) 05/09/20 06:50 [place] # (Auto) 1.1 X10*3/uL (0.1-1.2) 05/09/20 06:50 Eos # (Auto) 0.3 X10*3/uL (0.0-0.4) 05/09/20 06:50 Baso # (Auto) 0.1 X10*3/uL (0.0-0.2) 05/09/20 06:50 Abs Immat Gran (auto) 0.03 X10*3/uL (0.00-0.03) 05/09/20 06:50 Absolute Neuts (auto) 8.1 X10*3/uL (2.0-8.3) 05/09/20 06:50 Absolute Nucleated RBC 0.000 X10*3/uL (0.0-0.012) 05/09/20 06:50 Nucleated RBC % (auto) 0.0 /100WBC (0.0-0.2) 05/09/20 06:50 PT 22.2 SEC (10.8-13.0) H 05/09/20 10:24 INR 1.9 (0.9-1.1) H 05/09/20 10:24 Hold Blue Top SEE NOTE 05/07/20 22:14 Sodium 139 mmol/L (135-145) 05/08/20 05:55 Potassium 4.9 mmol/l (3.3-5.1) 05/08/20 05:55 Chloride 102 mmol/L (96-108) 05/08/20 05:55 Carbon Dioxide 29 mmol/L (22-29) 05/08/20 05:55 Anion Gap 13 (12-20) 05/08/20 05:55 BUN 52 mg/dL (9-16) H 05/08/20 05:55 Creatinine 2.01 mg/dL (0.5-1.4) H 05/08/20 05:55 Estim Creat Clear Calc 56.1 05/08/20 05:55 Estimated GFR 34 05/08/20 05:55 POC Glucose 185 mg/dL (60-115) H 05/09/20 07:09 Random Glucose 237 mg/dL (60-115) H D 05/08/20 05:55 Calcium 8.5 mg/dL (8.4-10.2) 05/08/20 05:55 Troponin I High Sens 15.1 ng/L (<3.5-35.0) 05/08/20 01:22 U Random Total Protein 46 mg/dL (<12) H 05/08/20 16:59 Urine Creatinine 74.14 mg/dL 05/08/20 16:59 Digoxin < 0.3 ng/mL (0.8-2.0) L 05/07/20 22:41 Coronavirus (PCR) NEGATIVE (Negative) 05/07/20 23:14 CT head--IMPRESSION: No acute intracranial pathology. 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 No change since prior CAT scan 01/26/2019. Discharge Plan Discharge Anticipated Discharge Date/Time: 05/09/20 10:51 Patient Disposition: Home, Self-Care Referrals: Jcarlos Melgar MD [Primary Care Provider] - Discharge Medications: Continued atorvastatin 80 mg tablet 1 tab PO DAILY RF: 0 torsemide 20 mg tablet 20 mg PO DAILY RF: 0 isosorbide mononitrate 30 mg tablet extended release 24 hr 1 tab PO DAILY RF: 0 warfarin 2.5 mg tablet 1 - 3 tab PO DAILY RF: 0 hydralazine 25 mg tablet 1 tab PO BID RF: 0 amitriptyline 50 mg tablet 1 tab PO DAILY RF: 0 Humulin R U-500 (Conc) Insulin 500 unit/mL solution 18 unit subcut QAM RF: 0 digoxin 125 mcg (0.125 mg) tablet 1 tab PO DAILY RF: 0 metoprolol succinate 25 mg tablet extended release 24 hr 1 tab PO DAILY RF: 0 amlodipine-olmesartan 10-40 mg tablet 1 tab PO DAILY RF: 0 Trulicity 1.5 mg/0.5 mL pen injector 1 mg subcut QWEEK RF: 0 Humulin R U-500 (Conc) Insulin 6 units subcut DIRECTED RF: 0 Discharge Orders: Discharge Order (Routine); Ordered 05/09/20 Ordered By: Craig Chappell Diet: diabetic diet Activity on Discharge: As tolerated Visit Report Forms: Patient Portal Discharge page Care Plan Goals: figure out why chest pain Health Concerns: no new concern at this time Plan of Treatment: Continue taking all your usual medications as before and follow up with your Doctor claudio week, call for apointment
[2020-05-09 11:20] LABS: Glucose, Whole Blood 240 mg/dL (60-115)
--- NOTE | 2020-05-09 11:21 | MHC.CM.PN ---
Patient has been medically cleared for dc to home today, no skilled services ordered. Patient's [facility] services/Caretakers will resume as before.Patient is aware of and in agreement with the dc plan.
== END 2020-05-09 13:33 | disposition home or self-care (01) ==
LOC: HO.ED 05-08 04:24 → HO.IMC 05-08 04:36
PROVIDERS: Internal Medicine Nephrology; Admitting Provider Internal Medicine; Emergency Provider Emergency Medicine Emergency Medical Services; PCP Internal Medicine; Visit Provider Internal Medicine
DX: R07.9 Chest pain, unspecified (principal); R20.0 Anesthesia of skin; E78.5 Hyperlipidemia, unspecified; I48.91 Unspecified atrial fibrillation; I13.0 Hypertensive heart and chronic kidney disease with heart failure and stage 1 through stage 4 chronic kidney disease, or unspecified chronic kidney disease; E11.22 Type 2 diabetes mellitus with diabetic chronic kidney disease; N17.9 Acute kidney failure, unspecified; N18.30 Chronic kidney disease, stage 3 unspecified; I50.9 Heart failure, unspecified; I25.10 Atherosclerotic heart disease of native coronary artery without angina pectoris; I11.0 Hypertensive heart disease with heart failure; F29 Unspecified psychosis not due to a substance or known physiological condition; Z20.828 Contact with and (suspected) exposure to other viral communicable diseases; Z86.73 Personal history of transient ischemic attack (TIA), and cerebral infarction without residual deficits; Z79.4 Long term (current) use of insulin; Z79.01 Long term (current) use of anticoagulants; Z79.899 Other long term (current) drug therapy
CPT/HCPCS: 36415; 70450; 71045; 80048; 80162; 82947; 84156; 84484; 85025; 85610; 93005; 96372; 96374; 96375; 96376; 99219; 99285; J1170; J2270; J2405; U0003

== ENCOUNTER → 2020-08-12 15:04 | Outpatient (BNVA) | payer MEDICARE, MEDICAID, SELFPAY | PROVIDERS: PCP Internal Medicine; Visit Provider Internal Medicine | DX: I48.20 Chronic atrial fibrillation, unspecified (principal); Z51.81 Encounter for therapeutic drug level monitoring; Z79.01 Long term (current) use of anticoagulants | CPT/HCPCS: 85610; 99211 ==

== ENCOUNTER → 2020-08-26 08:10 | Outpatient (BNVA) | payer MEDICARE, MEDICAID, SELFPAY | PROVIDERS: PCP Internal Medicine; Visit Provider Internal Medicine | DX: I48.20 Chronic atrial fibrillation, unspecified (principal); Z51.81 Encounter for therapeutic drug level monitoring; Z79.01 Long term (current) use of anticoagulants | CPT/HCPCS: 85610; 99211 ==

== ENCOUNTER 2020-09-24 08:08 | Outpatient (REF) | payer MEDICARE, MEDICAID, SELFPAY ==
[2020-09-24 08:27] LABS: MANUAL DIFF FLAG NO
[2020-09-24 08:41] LABS: Basophils Absolute Auto 0.1 X10*3/uL (0.0-0.2); Basophils Percent Auto 0.5 % (0-2); Eosinophils Absolute Auto 0.3 X10*3/uL (0.0-0.4); Eosinophils Percent Auto 2.3 % (0-4); Hematocrit 54.5 % (42-52); Hemoglobin 17.3 g/dl (14.0-18.0); Imm Gran Abs Auto 0.04 X10*3/uL (0.00-0.03); Imm Gran Pct Auto 0.3 % (0.0-0.4); Lymphocytes Absolute Auto 1.9 X10*3/uL (1.2-4.9); Lymphocytes Percent Auto 16.3 % (20-40); Mean Corpuscular HGB Conc 31.7 g/dl (31.0-36.0); Mean Corpuscular Hemoglobin 26.7 pg (27.0-33.0); Mean Platelet Volume 10.4 fL (9.4-12.4); Monocytes Absolute Auto 1.2 X10*3/uL (0.1-1.2); Monocytes Percent Auto 9.8 % (2-11); Neutrophils Absolute Auto 8.4 X10*3/uL (2.0-8.3); Neutrophils Percent Auto 70.8 % (45-73); Platelet Count 302 X10*3/uL (160-400); Red Blood Count 6.49 X10*6/uL (4.60-5.80); Red Cell Distribution Width 16.4 % (11.0-16.0); White Blood Count 11.8 X10*3/uL (4.8-10.8)
[2020-09-24 09:21] LABS: Albumin Level 3.9 g/dL (3.5-5.0); Anion Gap 17 (12-20); Blood Urea Nitrogen 90 mg/dL (9-16); Calcium 9.2 mg/dL (8.4-10.2); Carbon Dioxide 23 mmol/L (22-29); Chloride 104 mmol/L (96-108); Estimated Glomerular Filt Rate 21; Magnesium 2.4 mg/dL (1.6-2.6); Phosphorus 4.5 mg/dL (2.7-4.5); Potassium 5.9 mmol/L (3.3-5.1); Sodium 138 mmol/L (135-145)
[2020-09-24 10:39] LABS: Creatinine Urine 46.27 mg/dL; Protein/Creatinine Ratio, Ur 0.19 (<0.2); Total Protein Urine Random 9 mg/dL (<12)
[2020-09-28 17:37] LABS: Calcium (PTHI) 9.2 mg/dL (8.6-10.3); PTHI 218 pg/mL (14-64)
== END 2020-09-24 08:09 | disposition home or self-care (01) ==
LOC: HO.LAB 08:08
PROVIDERS: PCP Internal Medicine; Visit Provider Internal Medicine Hypertension Specialist
DX: I12.9 Hypertensive chronic kidney disease with stage 1 through stage 4 chronic kidney disease, or unspecified chronic kidney disease (principal); N18.30 Chronic kidney disease, stage 3 unspecified; D63.1 Anemia in chronic kidney disease
CPT/HCPCS: 36415; 80051; 82040; 82310; 82565; 83735; 83970; 84100; 84156; 84520; 85025

== ENCOUNTER 2020-10-04 07:48 | Outpatient (REF) | payer MEDICARE, MEDICAID, SELFPAY ==
--- NOTE | ~2020-10-04 | US_ITS ---
EXAMINATION: US RETROPERITONEAL LIMITED (RENAL ONLY) CLINICAL INFORMATION: Chronic kidney disease. COMPARISON: CT abdomen and pelvis 07/16/2015. Ultrasound abdomen complete 08/14/2014. Renal ultrasound 01/04/2011. MRA abdomen 11/01/2010. TECHNIQUE: Real-time imaging of the kidneys. FINDINGS: RIGHT KIDNEY: 13.2 x 5.9 x 5.3 cm (SAG x AP x TRV). The kidney is normal in size, contour, and echogenicity. Renal cortical thickness is normal. No calculi or focal parenchymal lesions. No hydronephrosis. Minimal right-sided perirenal nonspecific stranding with adjacent normal fat echogenicity is noted, similar when compared to the prior CT. LEFT KIDNEY: 15.3 x 6.1 x 6.3 cm (SAG x AP x TRV). The kidney is normal in size, contour, and echogenicity. Renal cortical thickness is normal. Left lower pole cyst measuring 1.1 cm with a possible peripheral calcification measuring 0.3 cm. No obstructing renal stone. No hydronephrosis. Minimal left-sided perirenal nonspecific stranding with adjacent normal fat echogenicity noted, similar when compared to the prior CT. US/US renal BI IMPRESSION: No hydronephrosis. No obstructing renal stone. Left lower pole renal cyst measuring 1.1 cm with a possible peripheral calcification measuring 0.3 cm. No right renal parenchymal lesion. Mild bilateral perinephric stranding with associated normal fat echogenicity, similar when compared to the prior CT.
== END 2020-10-04 07:49 | disposition home or self-care (01) ==
LOC: HO.US 07:48
PROVIDERS: PCP Internal Medicine; Visit Provider Internal Medicine Hypertension Specialist
DX: N18.31 Chronic kidney disease, stage 3a (principal)
CPT/HCPCS: 76775

== ENCOUNTER 2020-10-11 08:54 | Outpatient (REF) | payer MEDICARE, MEDICAID, SELFPAY ==
[2020-10-11 10:06] LABS: Anion Gap 15 (12-20); Blood Urea Nitrogen 46 mg/dL (9-16); Calcium 9.6 mg/dL (8.4-10.2); Carbon Dioxide 25 mmol/L (22-29); Chloride 106 mmol/L (96-108); Estimated Glomerular Filt Rate 36; Potassium 5.6 mmol/L (3.3-5.1); Sodium 140 mmol/L (135-145)
== END 2020-10-11 08:55 | disposition home or self-care (01) ==
LOC: HO.LAB 08:54
PROVIDERS: PCP Internal Medicine; Visit Provider Internal Medicine Hypertension Specialist
DX: N18.31 Chronic kidney disease, stage 3a (principal)
CPT/HCPCS: 36415; 80051; 82310; 82565; 84520

== ENCOUNTER 2020-11-16 10:18 | Outpatient (REF) | payer MEDICARE, MEDICAID, SELFPAY ==
[2020-11-16 11:20] LABS: Anion Gap 14 (12-20); Blood Urea Nitrogen 46 mg/dL (9-16); Calcium 8.4 mg/dL (8.4-10.2); Carbon Dioxide 24 mmol/L (22-29); Chloride 103 mmol/L (96-108); Estimated Glomerular Filt Rate 29; Potassium 4.5 mmol/L (3.3-5.1); Sodium 136 mmol/L (135-145)
== END 2020-11-16 10:19 | disposition home or self-care (01) ==
LOC: HO.LAB 10:18
PROVIDERS: PCP Internal Medicine; Visit Provider Internal Medicine Hypertension Specialist
DX: N18.32 Chronic kidney disease, stage 3b (principal)
CPT/HCPCS: 36415; 80051; 82310; 82565; 84520

== ENCOUNTER → 2021-03-15 10:20 | Outpatient (BNVA) | payer MEDICARE, MEDICAID, SELFPAY | PROVIDERS: PCP Internal Medicine; Visit Provider Internal Medicine | DX: I48.20 Chronic atrial fibrillation, unspecified (principal); Z51.81 Encounter for therapeutic drug level monitoring; Z79.01 Long term (current) use of anticoagulants | CPT/HCPCS: 85610; 99211 ==

== ENCOUNTER → 2021-03-30 08:03 | Outpatient (BNVA) | payer MEDICARE, MEDICAID, SELFPAY | PROVIDERS: PCP Internal Medicine; Visit Provider Internal Medicine | DX: I48.20 Chronic atrial fibrillation, unspecified (principal); Z51.81 Encounter for therapeutic drug level monitoring; Z79.01 Long term (current) use of anticoagulants | CPT/HCPCS: 85610; 99211 ==

== ENCOUNTER → 2021-04-27 07:53 | Outpatient (BNVA) | payer MEDICARE, MEDICAID, SELFPAY | PROVIDERS: PCP Internal Medicine; Visit Provider Internal Medicine | DX: I48.20 Chronic atrial fibrillation, unspecified (principal); Z51.81 Encounter for therapeutic drug level monitoring; Z79.01 Long term (current) use of anticoagulants | CPT/HCPCS: 85610; 99211 ==

== ENCOUNTER 2021-07-17 13:05 | Inpatient (IN) | payer MEDICARE, MEDICAID, SELFPAY ==
--- NOTE | ~2021-07-17 | XR_ITS ---
EXAMINATION: XR CHEST CLINICAL INFORMATION: Chest pain COMPARISON: Chest radiograph 05/07/2020 TECHNIQUE: Frontal supine view of the chest was obtained. FINDINGS: Given the supine position, no acute significant abnormality is felt to be present. The lungs are hypoventilated. Probable mild cardiomegaly persists. No infiltrates, effusions or lung masses. No gross CHF. Mild atelectasis present in the retrocardiac region. XR/XR chest 1V IMPRESSION: No acute intrathoracic disease.
--- NOTE | ~2021-07-17 | XR_ITS ---
EXAMINATION: XR CHEST CLINICAL INFORMATION: Shortness of breath COMPARISON: July 17, 2021 and May 07, 2020 TECHNIQUE: AP portable view of the chest was obtained. FINDINGS: There is some central peribronchial cuffing present without evidence of airspace disease. There is some mild central pulmonary vascular prominence. No pneumothorax or pleural effusion. Heart normal size. XR/XR chest 1V IMPRESSION: Findings consistent with pulmonary vascular congestion without confluent parenchymal disease.
--- NOTE | ~2021-07-17 | CT_ITS ---
EXAMINATION: CT HEAD WITHOUT CONTRAST CLINICAL INFORMATION: Severe dizziness. COMPARISON: Multiple previous head CTs with the last head CT of 05/08/2020. Brain MRI of 02/05/2013. TECHNIQUE: Contiguous axial imaging was performed from the skull base to vertex without intravenous administration of contrast. This CT examination was performed using dose optimization techniques as appropriate, variously including the following: *Automated exposure control *Adjustment of mA and/or kV according to patient size (this includes techniques or standardized protocols for targeted exams where dose is matched to indication/reason for exam; i.e. extremities or head) *Use of iterative reconstruction technique DLP: 720 mGy-cm FINDINGS: There is no evidence of acute intracranial hemorrhage or territorial infarction. No abnormal mass effect or midline shift is seen. Reis to white matter differentiation is well preserved. No extra-axial fluid collections are identified. Left occipital encephalomalacia is again noted with mild ex vacuo dilatation of the occipital horn. There is mild global volume loss with proportionate dilatation of the ventricles and cortical sulci. Moderate calcific atherosclerosis of the internal carotid and vertebral arteries. The osseous structures and soft tissues are normal. Incidental note is made of a nonspecific finding of a slight asymmetry in the size of the bilateral internal auditory canals, on the left measuring 0.5 to 0.6 cm and on the right measuring 0.4 cm in AP dimension, the finding is stable since the previous CT of 06/12/2015. Recommend clinical correlation. The patient is status post bilateral lens extraction. Near-complete opacification of the visualized right maxillary sinus is a known chronic finding likely reflecting underlying mucus retention cyst. There is near-complete opacification of the left-sided sphenoid sinus, increased compared to last CT. Remainder of the visualized paranasal sinuses are clear. Mastoid air cells and middle ear cavities are well aerated. Cerumen is noted in the bilateral external auditory canals. CT/CT head/brain wo con IMPRESSION: No acute intracranial abnormality. Other stable findings, as described above.
--- NOTE | ~2021-07-17 | MR_ITS ---
EXAMINATION: MR BRAIN WITHOUT CONTRAST CLINICAL INFORMATION: Rule out posterior CVA. COMPARISON: Head CT 07/17/2021. TECHNIQUE: Multiplanar, multisequence imaging of the brain was performed without intravenous contrast. FINDINGS: There is a small focus of acute infarction within the right paramedian verna best seen on series 3 image 04/30. No additional acute infarction is seen. A large area of chronic infarction with associated encephalomalacia and gliosis is seen involving the left occipital lobe reflecting chronic PANTRY ATTENDANT territory ischemia. A few minimal foci of T2/FLAIR hyperintensity are noted in the white matter, a nonspecific finding. There is no hemorrhage, mass, or extra-axial fluid collection. The arterial flow voids are difficult to evaluate due to the degree of motion artifact however no gross abnormality is seen. There are bilateral lens replacements. Right maxillary sinus is opacified with a retention cyst. There is mucosal thickening opacifying the left sphenoid sinus. MR/MR head/brain wo con IMPRESSION: Small focus of acute infarction within the right verna reflecting a paramedian pontine labor mediator infarction. No evidence of large infarct or hemorrhage. Chronic infarct noted within the left occipital lobe within the PANTRY ATTENDANT vascular territory.
--- NOTE | 2021-07-17 13:14 | ECG_ITS ---
Test Reason : chest pain Blood Pressure : / mmHG Vent. Rate : 066 BPM Atrial Rate : 046 BPM P-R Int : 000 ms QRS Dur : 096 ms QT Int : 406 ms P-R-T Axes : 000 -46 142 degrees QTc Int : 425 ms Atrial fibrillation with PVCs Left axis deviation Low voltage QRS Septal infarct (cited on or before 17-AUG-2014) Inferior infarct (cited on or before 25-JUL-2014) ST & T wave abnormality, consider lateral ischemia Abnormal ECG When compared with ECG of 07-MAY-2020 21:18, PVCs present Referred By: Angelina Botello Electronically Signed By:oCleman Burnett
--- NOTE | 2021-07-17 13:17 | ED.NAVMDI ---
HPI - Nausea/Vomiting/Diarrhea General Chief complaint: Chest Pain Stated complaint: DIZZY,NAUSEA,VOMITING,+VACC,ON HOME O2 Time Seen by Provider: 07/17/21 13:13 Source: patient, EMS and old records reviewed Mode of arrival: EMS Limitations: no limitations History of Present Illness HPI Narrative: 61-year-old male with history of AFib on Coumadin, polycythemia vera, DARLENE on CPAP, chronic hypoxic resp failure on 2L NC, diabetes on insulin, CHF w/EF 30%, history of OR at age 22, mild CAD on cardiac cath in 2019, CVA in 2007, CKD who presents to the ER from home via EMS with acute onset of nausea, vomiting and dizziness that started at 4am yesterday morning. He reports being unable to lift his head off of the bed or move at all because of the dizziness. He reports vomiting 5-6 times and it has been brown with some blood. He has no associated abdominal pain. He has felt weak and has had a headache. He was recently discharged from [facility] on 07/13 after a 15 day stay for acute CHF exacerbation. In route to the hospital patient reports he developed some left-sided chest pain and numbness in his distal left arm. Pain is 3/10 and has been constant since EMS came to pick him up. He denies any shortness of breath. MD elicited complaint: nausea and other (dizziness) Onset (ago): day(s) (1) Description of vomiting: coffee grounds Associated nausea: Yes Associated abdominal pain: No Location of pain: none Exacerbating factors: none Relieving factors: none Associated symptoms: loss of appetite, malaise, nausea/vomiting, weakness and other (dizziness) Treatment prior to arrival: fluids and other (IV Zofran) Related Data Home Medications Medication Instructions Recorded Confirmed amitriptyline 50 mg tablet 1 tab PO DAILY 05/08/20 07/17/21 atorvastatin 80 mg tablet 1 tab PO DAILY 05/08/20 07/17/21 digoxin 125 mcg (0.125 mg) tablet 1 tab PO DAILY 05/08/20 07/17/21 dulaglutide 1.5 mg/0.5 mL 1 mg SUBCUT QWEEK 05/08/20 07/17/21 subcutaneous pen injector (Trulicity) insulin regular hum U-500 conc 500 20 unit SUBCUT QAM 05/08/20 07/17/21 unit/mL subcutaneous soln (Humulin R U-500 (Concentrated) Insulin) metoprolol succinate 25 mg 1 tab PO DAILY 05/08/20 07/17/21 tablet,extended release 24 hr warfarin 2.5 mg tablet 2 tab PO LU 05/08/20 07/17/21 amitriptyline 50 mg tablet 150 mg PO BEDTIME 07/17/21 07/17/21 amlodipine 10 mg tablet 1 tab PO DAILY 07/17/21 07/17/21 ascorbic acid (vitamin C) 500 mg 500 mg PO DAILY 07/17/21 07/17/21 tablet hydralazine 25 mg tablet 1 tab PO TID 07/17/21 07/17/21 insulin regular hum U-500 conc 500 10 unit SUBCUT BEDTIME 07/17/21 07/17/21 unit/mL subcutaneous soln (Humulin R U-500 (Concentrated) Insulin) isosorbide mononitrate 60 mg 1 tab PO DAILY 07/17/21 07/17/21 tablet,extended release 24 hr metolazone 5 mg tablet 1 tab PO DAILY 07/17/21 07/17/21 potassium chloride 10 mEq 10 meq PO DAILY 07/17/21 07/17/21 capsule,extended release torsemide 100 mg tablet 1 tab PO BID 07/17/21 07/17/21 warfarin 2.5 mg tablet 1 tab PO MOTUWETHFRSA 07/17/21 07/17/21 Allergies Allergy/AdvReac Type Severity Reaction Status Date / Time No Known Allergies Allergy Unknown NKDA Verified 07/17/21 13:37 Review of Systems Review of Systems: Constitutional: No Fever, No Chills ENT/Mouth: No sore throat, No Rhinorrhea, No Swallowing Difficulty Eyes: No Eye Pain, No Swelling, Novision changes Cardiovascular: + Chest Pain, No SOB, No Orthopnea, No Edema Respiratory: No Cough, No Sputum, No Wheezing, No dyspnea Gastrointestinal: + Nausea, + Vomiting, No Diarrhea, No abdominal Pain, No Hematochezia, No Melena Genitourinary: No Dysuria, No Urinary Frequency, No Hematuria Musculoskeletal: No joint pain, No Myalgias Skin: No Skin Lesions, No rash Neuro: + Weakness, No Numbness, + Dizziness, + Headache Psych: + Anxiety/Panic, No Depression Heme/Lymph: No Bruising, No Lymphadenopathy Endocrine: No Polyuria, No Polydipsia Gastrointestinal: Gastrointestinal: Reports nausea PMFSH Past Medical History Medical History (Updated 07/17/21 @ 15:33 by BRENTON Vance) Afib Cataract CHF (congestive heart failure) Cholecystectomy planned CVA (cerebral vascular accident) Diabetes Heart attack HTN (hypertension) Hyperlipidemia Psychotic disorder Toe amputee Family History Family History (Updated 09/16/20 @ 11:46 by Saskia Lang) Father Diabetes Hx of cancer antigen 125 (CA-125) measurement Mother Diabetes Brother Diabetes Hx of cancer antigen 125 (CA-125) measurement Social History Social History (Updated 09/16/20 @ 11:47 by Saskia Lang) Household Members: Caregiver Housing: House Do you presently have visiting nurse or other home services: Yes Alcohol intake: current Alcohol intake frequency: holidays/special occasions only Alcohol type: beer Advance Directives: No Advance Directives Information Provided: Yes service: No Current occupational status: disabled Physical Exam Vital Signs: Vital Signs: Last Vital Signs Temp 97.6 F 07/17/21 13:33 Pulse 71 07/17/21 15:26 Resp 18 07/17/21 15:26 BP 116/63 07/17/21 15:26 Pulse Ox 97 07/17/21 15:26 Oxygen Flow Rate 2 07/17/21 13:33 BMI result Body Mass Index 42.0 Appearance: Alert. Oriented X3. No acute distress. Eyes: Pupils equal, round and reactive to light. No nystagmus, EOMI, ENT: Pharynx normal. TMs obscured bilaterally due to impacted cerumen. Neck: Normal inspection. Neck supple. CVS: Irregularly irregular +systolic murmur Pulses normal. Respiratory: No respiratory distress. Breath sounds normal. Abdomen: Softly distended, obese and nontender. +BS x4 Skin: Skin warm and dry. Normal skin color. Poor skin turgor. Extremities: Chronic venous stasis changes with skin hyperpigmentation and diffuse dryness, Trace lower extremity edema. Neuro: Oriented X 3. No motor deficit. No sensory deficit. gait not tested due to severe dizziness. Speech is normal. Strength is symmetrical and equal throughout. Course Course Course Narrative: 61-year-old male with a history of CHF w. EF 50%, CKD, severe pulmonary hypertension, DARLENE on CPAP, type 2 diabetes on insulin, AFib on Coumadin, CVA, HTN, PCV, obesity presents to the ER with acute onset of severe dizziness, nausea, vomiting that started yesterday at 04:00. His neuro exam is nonfocal. His dizziness is severe to the point where he can not lift his head up off the bed. He has no noted nystagmus. He is anticoagulated on Coumadin. Concern for possible posterior circulation stroke given the severity of his symptoms verses severe vertigo. Will get CT of the head now, metabolic workup, and medicate with meclizine and Zofran. Will reassess. Will monitor closely. Reevaluation(s) Reevaluation #1: EKG showing significant change from prior in 2019. He is now in slow AFib, bigeminy, question of underlying heart block. Dr. Nguyen was consulted who came down to evaluate the patient. Does not appear to be in heart block at this time. Patient reports CardioMEMS device in place.. BP remains stable records from [facility] obtained-patient was admitted for acute on chronic diastolic heart failure and aggressively diuresed with IV Lasix infusion and metolazone. He was diuresed 23 lb off and -24 L. D/C weight was 295. Reevaluation #2: Glucose 410, no anion gap or evidence of DKA. His renal function is at his baseline, SCr 1.99. His BUN is elevated at 101, in the setting of his vomiting, he may have upper GI bleeding. His H&H is normal however it is decreased from his baseline of 17/54. His INR is therapeutic at 2.8. No hematemesis here was some brown material in the tegmen he came from EMS. Will give a dose of Protonix now. WBC 13.3, most likely reactive from vomiting. No evidence of sepsis, UA is still pending. His LFTs and bilirubins are elevated above his baseline, likely in the setting of vomiting. He has no right upper quadrant tenderness or abdominal pain at this time. Will hold off on imaging of the abdomen for now. BNP 487. Troponin 24.8. Does not appear to be in acute CHF, recently aggressively diuresed and appears dry on exam. Getting gentle IVF. Reevaluation #3: CT scan of the head was negative for any acute findings. Dr. Wyatt at the bedside to admit. Consultations Consultation #1: Cardiology - Dr. Nguyen [facility] - Nausea/Vomiting/Diarrhea Medical Records Attestation: I reviewed the patient's medical records. Lab Data Attestation: I reviewed the patient's lab results. Result diagrams: 07/17/21 13:49 07/17/21 13:49 Labs: Lab Results 07/17/21 07/17/21 07/17/21 Range/Units 13:48 13:48 13:48 WBC (4.8-10.8) X10*3/uL RBC (4.60-5.80) X10*6/uL Hgb (14.0-18.0) g/dl Hct (42.0-52.0) % MCV (80.0-98.0) fL MCH (27.0-33.0) pg MCHC (31.0-36.0) g/dl RDW (11.0-16.0) % Plt Count (160-400) X10*3/uL MPV (9.4-12.4) fL Immature Gran % (Auto) (0.0-0.4) % Neut % (Auto) (45-73) % Lymph % (Auto) (20-40) % Kitt[place] % (Auto) (2-11) % Eos % (Auto) (0-4) % Baso % (Auto) (0-2) % Lymph # (Auto) (1.2-4.9) X10*3/uL Kittson # (Auto) (0.1-1.2) X10*3/uL Eos # (Auto) (0.0-0.4) X10*3/uL Baso # (Auto) (0.0-0.2) X10*3/uL Abs Immat Gran (auto) (0.00-0.03) X10*3/uL Absolute Neuts (auto) (2.0-8.3) x10*3/uL Absolute Nucleated RBC (0.0-0.012) X10*3/uL Nucleated RBC % (auto) (0.0-0.2) /100WBC PT (9.9-13.0) SEC INR (0.9-1.1) APTT (24.1-38.0) SEC VBG pH (7.32-7.43) VBG pCO2 mmHg VBG pO2 mmHg VBG HCO3 (22-26) mmol/L VBG O2 Saturation % VBG Base Excess mmol/L Sodium (135-145) mmol/L Potassium (3.3-5.1) mmol/L Chloride (96-108) mmol/L Carbon Dioxide (22-29) mmol/L Anion Gap (12-20) BUN (9-16) mg/dL Creatinine (0.5-1.4) mg/dL Estim Creat Clear Calc Estimated GFR Random Glucose (60-115) mg/dL Lactic Acid (0.5-2.0) mmol/L Calcium (8.4-10.2) mg/dL Magnesium (1.6-2.6) mg/dL Total Bilirubin (0.0-1.0) mg/dL Direct Bilirubin (0.0-0.5) mg/dL AST (5-37) U/L ALT (0-40) U/L Alkaline Phosphatase (39-117) U/L Total Creatine Kinase (38-174) U/L Troponin I High Sens 24.8 (<3.5-35.0) ng/L B-Natriuretic Peptide 487 H (<100) pg/mL Total Protein (6.5-8.0) g/dL Albumin (3.5-5.0) g/dL Lipase (8-78) U/L Digoxin (0.8-2.0) ng/mL Ethyl Alcohol < 10 mg/dL Acetone, Qual (Negative) COVID-19 (POWER) (Negative) COVID-19 Clin Com 07/17/21 07/17/21 07/17/21 Range/Units 13:48 13:48 13:49 WBC 13.3 H (4.8-10.8) X10*3/uL RBC 5.11 (4.60-5.80) X10*6/uL Hgb 14.6 (14.0-18.0) g/dl Hct 43.8 (42.0-52.0) % MCV 85.7 (80.0-98.0) fL MCH 28.6 (27.0-33.0) pg MCHC 33.3 (31.0-36.0) g/dl RDW 16.3 H (11.0-16.0) % Plt Count 362 (160-400) X10*3/uL MPV 10.1 (9.4-12.4) fL Immature Gran % (Auto) 0.3 (0.0-0.4) % Neut % (Auto) 84.1 H (45-73) % Lymph % (Auto) 6.7 L (20-40) % Kittson % (Auto) 7.9 (2-11) % Eos % (Auto) 0.7 (0-4) % Baso % (Auto) 0.3 (0-2) % Lymph # (Auto) 0.9 L (1.2-4.9) X10*3/uL Kittson # (Auto) 1.1 (0.1-1.2) X10*3/uL Eos # (Auto) 0.1 (0.0-0.4) X10*3/uL Baso # (Auto) 0.0 (0.0-0.2) X10*3/uL Abs Immat Gran (auto) 0.04 H (0.00-0.03) X10*3/uL Absolute Neuts (auto) 11.2 H (2.0-8.3) x10*3/uL Absolute Nucleated RBC 0.000 (0.0-0.012) X10*3/uL Nucleated RBC % (auto) 0.0 (0.0-0.2) /100WBC PT (9.9-13.0) SEC INR (0.9-1.1) APTT (24.1-38.0) SEC VBG pH (7.32-7.43) VBG pCO2 mmHg VBG pO2 mmHg VBG HCO3 (22-26) mmol/L VBG O2 Saturation % VBG Base Excess mmol/L Sodium (135-145) mmol/L Potassium (3.3-5.1) mmol/L Chloride (96-108) mmol/L Carbon Dioxide (22-29) mmol/L Anion Gap (12-20) BUN (9-16) mg/dL Creatinine (0.5-1.4) mg/dL Estim Creat Clear Calc Estimated GFR Random Glucose (60-115) mg/dL Lactic Acid (0.5-2.0) mmol/L Calcium (8.4-10.2) mg/dL Magnesium (1.6-2.6) mg/dL Total Bilirubin (0.0-1.0) mg/dL Direct Bilirubin (0.0-0.5) mg/dL AST (5-37) U/L ALT (0-40) U/L Alkaline Phosphatase (39-117) U/L Total Creatine Kinase (38-174) U/L Troponin I High Sens (<3.5-35.0) ng/L B-Natriuretic Peptide (<100) pg/mL Total Protein (6.5-8.0) g/dL Albumin (3.5-5.0) g/dL Lipase (8-78) U/L Digoxin 0.5 L (0.8-2.0) ng/mL Ethyl Alcohol mg/dL Acetone, Qual Negative (Negative) COVID-19 (POWER) (Negative) COVID-19 Clin Com 07/17/21 07/17/21 07/17/21 Range/Units 13:49 13:49 13:49 WBC (4.8-10.8) X10*3/uL RBC (4.60-5.80) X10*6/uL Hgb (14.0-18.0) g/dl Hct (42.0-52.0) % MCV (80.0-98.0) fL MCH (27.0-33.0) pg MCHC (31.0-36.0) g/dl RDW (11.0-16.0) % Plt Count (160-400) X10*3/uL MPV (9.4-12.4) fL Immature Gran % (Auto) (0.0-0.4) % Neut % (Auto) (45-73) % Lymph % (Auto) (20-40) % Kittson % (Auto) (2-11) % Eos % (Auto) (0-4) % Baso % (Auto) (0-2) % Lymph # (Auto) (1.2-4.9) X10*3/uL Kittson # (Auto) (0.1-1.2) X10*3/uL Eos # (Auto) (0.0-0.4) X10*3/uL Baso # (Auto) (0.0-0.2) X10*3/uL Abs Immat Gran (auto) (0.00-0.03) X10*3/uL Absolute Neuts (auto) (2.0-8.3) x10*3/uL Absolute Nucleated RBC (0.0-0.012) X10*3/uL Nucleated RBC % (auto) (0.0-0.2) /100WBC PT 32.6 H (9.9-13.0) SEC INR 2.8 H (0.9-1.1) APTT 51.2 H (24.1-38.0) SEC VBG pH (7.32-7.43) VBG pCO2 mmHg VBG pO2 mmHg VBG HCO3 (22-26) mmol/L VBG O2 Saturation % VBG Base Excess mmol/L Sodium 134 L (135-145) mmol/L Potassium 3.3 D (3.3-5.1) mmol/L Chloride 91 L (96-108) mmol/L Carbon Dioxide 28 (22-29) mmol/L Anion Gap 18 (12-20) BUN 101 H (9-16) mg/dL Creatinine 1.99 H (0.5-1.4) mg/dL Estim Creat Clear Calc 56.4 Estimated GFR 35 Random Glucose 410 H* (60-115) mg/dL Lactic Acid 1.9 (0.5-2.0) mmol/L Calcium 8.6 (8.4-10.2) mg/dL Magnesium 2.7 H (1.6-2.6) mg/dL Total Bilirubin 2.2 H (0.0-1.0) mg/dL Direct Bilirubin 1.1 H (0.0-0.5) mg/dL AST 40 H D (5-37) U/L ALT 30 (0-40) U/L Alkaline Phosphatase 185 H (39-117) U/L Total Creatine Kinase 95 (38-174) U/L Troponin I High Sens (<3.5-35.0) ng/L B-Natriuretic Peptide (<100) pg/mL Total Protein 6.7 (6.5-8.0) g/dL Albumin 2.7 L D (3.5-5.0) g/dL Lipase 50 (8-78) U/L Digoxin (0.8-2.0) ng/mL Ethyl Alcohol mg/dL Acetone, Qual (Negative) COVID-19 (POWER) (Negative) COVID-19 Clin Com 07/17/21 07/17/21 Range/Units 13:49 13:54 WBC (4.8-10.8) X10*3/uL RBC (4.60-5.80) X10*6/uL Hgb (14.0-18.0) g/dl Hct (42.0-52.0) % MCV (80.0-98.0) fL MCH (27.0-33.0) pg MCHC (31.0-36.0) g/dl RDW (11.0-16.0) % Plt Count (160-400) X10*3/uL MPV (9.4-12.4) fL Immature Gran % (Auto) (0.0-0.4) % Neut % (Auto) (45-73) % Lymph % (Auto) (20-40) % Kittson % (Auto) (2-11) % Eos % (Auto) (0-4) % Baso % (Auto) (0-2) % Lymph # (Auto) (1.2-4.9) X10*3/uL Kittson # (Auto) (0.1-1.2) X10*3/uL Eos # (Auto) (0.0-0.4) X10*3/uL Baso # (Auto) (0.0-0.2) X10*3/uL Abs Immat Gran (auto) (0.00-0.03) X10*3/uL Absolute Neuts (auto) (2.0-8.3) x10*3/uL Absolute Nucleated RBC (0.0-0.012) X10*3/uL Nucleated RBC % (auto) (0.0-0.2) /100WBC PT (9.9-13.0) SEC INR (0.9-1.1) APTT (24.1-38.0) SEC VBG pH 7.50 H (7.32-7.43) VBG pCO2 42 mmHg VBG pO2 63 mmHg VBG HCO3 33 H (22-26) mmol/L VBG O2 Saturation 89.0 % VBG Base Excess 9.3 mmol/L Sodium (135-145) mmol/L Potassium (3.3-5.1) mmol/L Chloride (96-108) mmol/L Carbon Dioxide (22-29) mmol/L Anion Gap (12-20) BUN (9-16) mg/dL Creatinine (0.5-1.4) mg/dL Estim Creat Clear Calc Estimated GFR Random Glucose (60-115) mg/dL Lactic Acid (0.5-2.0) mmol/L Calcium (8.4-10.2) mg/dL Magnesium (1.6-2.6) mg/dL Total Bilirubin (0.0-1.0) mg/dL Direct Bilirubin (0.0-0.5) mg/dL AST (5-37) U/L ALT (0-40) U/L Alkaline Phosphatase (39-117) U/L Total Creatine Kinase (38-174) U/L Troponin I High Sens (<3.5-35.0) ng/L B-Natriuretic Peptide (<100) pg/mL Total Protein (6.5-8.0) g/dL Albumin (3.5-5.0) g/dL Lipase (8-78) U/L Digoxin (0.8-2.0) ng/mL Ethyl Alcohol mg/dL Acetone, Qual (Negative) COVID-19 (POWER) Negative (Negative) COVID-19 Clin Com See Note ECG Data Attestation: I personally reviewed and interpreted this ECG as follows: ECG interpretation date: 07/17/21 ECG interpretation time: 14:01 Prior ECG tracings: available for review Interpretation: 07/17/21 - 13:40pm - atrial fibrilation with bigeminy, no visible P waves, no ST segment elevations or depressions. significant change from prior in 2019 Critical Care Time Critical Care Time Critical Care Time: Yes Total Critical Care Time: 49 Attestation: I have personally provided critical care time exclusive of time spent on separately billable procedures. Time includes review of lab data, radiology results, discussion with consultants/hospitalists, frequent bedside reassessments and monitoring for potential decompensation. Intervention performed as documented. Discharge Plan Discharge Clinical Impression: Dizziness, Uremia, Coffee ground emesis, Hyperglycemia Nausea & vomiting Qualifiers: Vomiting type: unspecified Qualified Code(s): R11.2 - Nausea with vomiting, unspecified Patient Disposition: Admitted As Inpatient
[2021-07-17 13:33] VITALS: BP 124/75; BP 127/82; PULSE 60; PULSE 66; RESP 20; TEMP 36.4; O2SAT 93; O2SAT 94; BMI 42.0
[2021-07-17] MEDS: ondansetron HCL 4 MG/2 ML VIAL IVPUSH (13:57)
[2021-07-17] MEDS: 0.9 % Sodium Chloride 1,000 ML 999 ML IVCONT (13:57)
[2021-07-17] MEDS: Meclizine HCl 25 MG TABLET 50 MG PO (13:57)
--- NOTE | 2021-07-17 13:57 | PC.NURSE ---
Pt received from EMS: AOX4 with multiple complaints. No active vomiting now. Pt c/o L ant CP radiating to L arm and SOB. Pt normally on 2L n/C at home r/t CHF, as per pt. B/L LE 2-3+ eema noted. Heart sounds irregular with murmur and lungs diminished. Pt abd round, soft and generalized tenderness.
[2021-07-17 14:02] LABS: VBG Base Excess 9.3 mmol/L; VBG HCO3 33 mmol/L (22-26); VBG pCO2 42 mmHg; VBG pO2 63 mmHg
[2021-07-17 14:05] LABS: Venous Blood Gas Refer to POC result
[2021-07-17 14:07] LABS: MANUAL DIFF FLAG NO
[2021-07-17 14:12] LABS: Basophils Percent Auto 0.3 % (0-2); Eosinophils Absolute Auto 0.1 X10*3/uL (0.0-0.4); Eosinophils Percent Auto 0.7 % (0-4); Hematocrit 43.8 % (42.0-52.0); Hemoglobin 14.6 g/dl (14.0-18.0); Imm Gran Abs Auto 0.04 X10*3/uL (0.00-0.03); Imm Gran Pct Auto 0.3 % (0.0-0.4); Lymphocytes Absolute Auto 0.9 X10*3/uL (1.2-4.9); Lymphocytes Percent Auto 6.7 % (20-40); Mean Corpuscular HGB Conc 33.3 g/dl (31.0-36.0); Mean Corpuscular Hemoglobin 28.6 pg (27.0-33.0); Mean Corpuscular Volume 85.7 fL (80.0-98.0); Mean Platelet Volume 10.1 fL (9.4-12.4); Monocytes Absolute Auto 1.1 X10*3/uL (0.1-1.2); Monocytes Percent Auto 7.9 % (2-11); Neutrophils Absolute Auto 11.2 x10*3/uL (2.0-8.3); Neutrophils Percent Auto 84.1 % (45-73); Platelet Count 362 X10*3/uL (160-400); Red Blood Count 5.11 X10*6/uL (4.60-5.80); Red Cell Distribution Width 16.3 % (11.0-16.0); White Blood Count 13.3 X10*3/uL (4.8-10.8)
[2021-07-17 14:17] LABS: COVID-19 Test Negative (Negative); INTERNATIONAL NORM RATIO 2.8 (0.9-1.1); Prothrombin Time 32.6 SEC (9.9-13.0)
[2021-07-17 14:20] LABS: Partial Thromboplastin Time 51.2 SEC (24.1-38.0)
[2021-07-17 14:30] LABS: Lactic Acid 1.9 mmol/L (0.5-2.0)
[2021-07-17 14:35] LABS: Ethanol < 10 mg/dL
[2021-07-17 14:42] LABS: Alanine Aminotransferase 30 U/L (0-40); Albumin Level 2.7 g/dL (3.5-5.0); Alkaline Phosphatase 185 U/L (39-117); Anion Gap 18 (12-20); Aspartate Amino Transferase 40 U/L (5-37); Bilirubin Direct 1.1 mg/dL (0.0-0.5); Bilirubin Total 2.2 mg/dL (0.0-1.0); Blood Urea Nitrogen 101 mg/dL (9-16); Calcium 8.6 mg/dL (8.4-10.2); Carbon Dioxide 28 mmol/L (22-29); Chloride 91 mmol/L (96-108); Creatinine Clr Calc Pharmacy 56.4; Estimated Glomerular Filt Rate 35; Glucose Random 410 mg/dL (60-115); Lipase 50 U/L (8-78); Magnesium 2.7 mg/dL (1.6-2.6); Potassium 3.3 mmol/L (3.3-5.1); Sodium 134 mmol/L (135-145); Total Protein 6.7 g/dL (6.5-8.0)
[2021-07-17 14:43] LABS: B Type Natriuretic Peptide 487 pg/mL (<100); Troponin-I High Sensitivity 24.8 ng/L (<3.5-35.0)
[2021-07-17 14:53] LABS: Acetone, serum QL Negative (Negative)
--- NOTE | 2021-07-17 14:59 | P.CONCA_ITS ---
History of Present Illness History of Present Illness Date of Service: 07/17/21 Chief complaint: DIZZY,NAUSEA,VOMITING,+VACC,ON HOME O2 Narrative: This is a cardiology consultation concerning dizziness and bradycardia. Patient has a history of chronic heart failure. Seems he has both systolic as well as diastolic heart failure. There is a discharge summary from [facility] and he was just admitted there for heart failure diagnosis. He has a CardioMEMS device implanted and apparently that showed elevated readings and hence admitted to the hospital and diuresed almost 15 L or so. 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 Otherwise, he is here because of feeling dizzy for the last couple of days. The way he describes is that every time he moves his head he gets dizzy. Even he is lying down and lifting aside he gets dizzy. Hence seems more like vertigo rather than true dizziness. Had about 8 episodes of vomiting before arrival. He some nonspecific chest pains. Chronically short of breath. Review of Systems Review of Systems: Yes all other systems are reviewed and are negative Cardiovascular: Cardiovascular: Reports as per HPI, Reports no additional cardiovascular complaints, Denies acrocyanosis, Denies cool extremities, Denies painful fingertips, Denies chest pain, Denies chest pain at rest, Denies diaphoresis, Denies syncope, Denies irregular heart rhythm, Denies claudication, Denies leg edema, Reports lightheadedness, Denies palpitations and Reports dyspnea Respiratory: Respiratory: Reports dyspnea Neurologic: Denies syncope Endocrine: Endocrine: Denies palpitations PMF Past Medical History Medical History (Updated 07/17/21 @ 15:05 by Drake Nguyen MD) Afib Cataract CHF (congestive heart failure) Cholecystectomy planned CVA (cerebral vascular accident) Diabetes Heart attack HTN (hypertension) Hyperlipidemia Psychotic disorder Toe amputee Family History Family History (Updated 09/16/20 @ 11:46 by Saskia Lang) Father Diabetes Hx of cancer antigen 125 (CA-125) measurement Mother Diabetes Brother Diabetes Hx of cancer antigen 125 (CA-125) measurement Social History Social History (Updated 09/16/20 @ 11:47 by Saskia Lang) Household Members: Caregiver Housing: House Do you presently have visiting nurse or other home services: Yes Alcohol intake: current Alcohol intake frequency: holidays/special occasions only Alcohol type: beer Advance Directives: No Advance Directives Information Provided: Yes service: No Current occupational status: disabled Meds Allergies Allergy/AdvReac Type Severity Reaction Status Date / Time No Known Allergies Allergy Unknown NKDA Verified 07/17/21 13:37 Active Medications: Current Medications Pharmacy Consult (Consult Rx Perform Med Rec) 1 each MISCELLANE ONCE PRN PRN Reason: Consult order Home Medications Medication Instructions Recorded Confirmed Last Taken Type amitriptyline 50 mg tablet 1 tab PO DAILY 05/08/20 09/16/20 05/07/20 History atorvastatin 80 mg tablet 1 tab PO DAILY 05/08/20 09/16/20 05/07/20 History digoxin 125 mcg (0.125 mg) tablet 1 tab PO DAILY 05/08/20 09/16/20 05/07/20 History dulaglutide 1.5 mg/0.5 mL 1 mg SUBCUT QWEEK 05/08/20 09/16/20 05/03/20 History subcutaneous pen injector (Trulicity) insulin regular hum U-500 conc 500 18 unit SUBCUT QAM 05/08/20 09/16/20 05/07/20 08:00 History unit/mL subcutaneous soln (Humulin R U-500 (Concentrated) Insulin) metoprolol succinate 25 mg 1 tab PO DAILY 05/08/20 09/16/20 05/07/20 History tablet,extended release 24 hr warfarin 2.5 mg tablet 1 - 3 tab PO DAILY 05/08/20 04/27/21 05/07/20 History amlodipine 10 mg tablet 1 tab PO DAILY 07/17/21 Unknown History hydralazine 25 mg tablet 1 tab PO TID 07/17/21 Unknown History isosorbide mononitrate 60 mg 1 tab PO DAILY 07/17/21 Unknown History tablet,extended release 24 hr metolazone 5 mg tablet 1 tab PO DAILY 07/17/21 Unknown History potassium chloride 10 mEq meq PO 07/17/21 Unknown History capsule,extended release torsemide 100 mg tablet 1 tab PO BID 07/17/21 Unknown History Physical Exam Vital Signs: Vital Signs: Last Vital Signs Temp 97.6 F 07/17/21 13:33 Pulse 66 07/17/21 13:33 Resp 20 07/17/21 13:33 BP 124/75 07/17/21 13:33 Pulse Ox 93 07/17/21 13:33 Oxygen Flow Rate 2 07/17/21 13:33 BMI result Body Mass Index 42.0 Const: General: no acute distress HENMT: Other: Unremarkable Neck: Neck: Yes normal visual inspection Chest: Chest palpation & inspection: normal inspection of the chest Resp: Auscultation: no crackles and no wheezes Cardio: Palpation: normal PMI Heart sounds: S1 normal heart sound present, S2 normal heart sound present, no gallops, no murmurs and no rubs GI: Palpation (GI): Soft to palpation Back/Spine/Pelvis: Other: unremarkable Skin: Lesions: other Neuro: Cranial nerves: Yes Other cranial nerve findings present Extrem: Other: Chronic changes with only minimal edema. General: Yes other Psych: Mental Status: other Objective Labs and Meds Result diagrams: 07/17/21 13:49 07/17/21 13:49 Lab results: Laboratory Results - last 24 hr 07/17/21 07/17/21 07/17/21 13:48 13:48 13:48 WBC RBC Hgb Hct MCV MCH MCHC RDW Plt Count MPV Immature Gran % (Auto) Neut % (Auto) Lymph % (Auto) Bailey % (Auto) Eos % (Auto) Baso % (Auto) Lymph # (Auto) Bailey # (Auto) Eos # (Auto) Baso # (Auto) Abs Immat Gran (auto) Absolute Neuts (auto) Absolute Nucleated RBC Nucleated RBC % (auto) PT INR APTT VBG pH VBG pCO2 VBG pO2 VBG HCO3 VBG O2 Saturation VBG Base Excess Sodium Potassium Chloride Carbon Dioxide Anion Gap BUN Creatinine Estim Creat Clear Calc Estimated GFR Random Glucose Lactic Acid Calcium Magnesium Total Bilirubin Direct Bilirubin AST ALT Alkaline Phosphatase Total Creatine Kinase Troponin I High Sens 24.8 B-Natriuretic Peptide 487 H Total Protein Albumin Lipase Ethyl Alcohol < 10 Acetone, Qual COVID-19 (POWER) COVID-19 Clin Com 07/17/21 07/17/21 07/17/21 13:48 13:49 13:49 WBC 13.3 H RBC 5.11 Hgb 14.6 Hct 43.8 MCV 85.7 MCH 28.6 MCHC 33.3 RDW 16.3 H Plt Count 362 MPV 10.1 Immature Gran % (Auto) 0.3 Neut % (Auto) 84.1 H Lymph % (Auto) 6.7 L Bailey % (Auto) 7.9 Eos % (Auto) 0.7 Baso % (Auto) 0.3 Lymph # (Auto) 0.9 L Bailey # (Auto) 1.1 Eos # (Auto) 0.1 Baso # (Auto) 0.0 Abs Immat Gran (auto) 0.04 H Absolute Neuts (auto) 11.2 H Absolute Nucleated RBC 0.000 Nucleated RBC % (auto) 0.0 PT 32.6 H INR 2.8 H APTT 51.2 H VBG pH VBG pCO2 VBG pO2 VBG HCO3 VBG O2 Saturation VBG Base Excess Sodium Potassium Chloride Carbon Dioxide Anion Gap BUN Creatinine Estim Creat Clear Calc Estimated GFR Random Glucose Lactic Acid Calcium Magnesium Total Bilirubin Direct Bilirubin AST ALT Alkaline Phosphatase Total Creatine Kinase Troponin I High Sens B-Natriuretic Peptide Total Protein Albumin Lipase Ethyl Alcohol Acetone, Qual Negative COVID-19 (POWER) COVID-Brand [employer] Com 07/17/21 07/17/21 07/17/21 13:49 13:49 13:49 WBC RBC Hgb Hct MCV MCH MCHC RDW Plt Count MPV Immature Gran % (Auto) Neut % (Auto) Lymph % (Auto) Bailey % (Auto) Eos % (Auto) Baso % (Auto) Lymph # (Auto) Bailey # (Auto) Eos # (Auto) Baso # (Auto) Abs Immat Gran (auto) Absolute Neuts (auto) Absolute Nucleated RBC Nucleated RBC % (auto) PT INR APTT VBG pH VBG pCO2 VBG pO2 VBG HCO3 VBG O2 Saturation VBG Base Excess Sodium 134 L Potassium 3.3 D Chloride 91 L Carbon Dioxide 28 Anion Gap 18 BUN 101 H Creatinine 1.99 H Estim Creat Clear Calc 56.4 Estimated GFR 35 Random Glucose 410 H* Lactic Acid 1.9 Calcium 8.6 Magnesium 2.7 H Total Bilirubin 2.2 H Direct Bilirubin 1.1 H AST 40 H D ALT 30 Alkaline Phosphatase 185 H Total Creatine Kinase 95 Troponin I High Sens B-Natriuretic Peptide Total Protein 6.7 Albumin 2.7 L D Lipase 50 Ethyl Alcohol Acetone, Qual COVID-19 (POWER) Negative COVID-19 [employer] Com See Note 07/17/21 13:54 WBC RBC Hgb Hct MCV MCH MCHC RDW Plt Count MPV Immature Gran % (Auto) Neut % (Auto) Lymph % (Auto) Bailey % (Auto) Eos % (Auto) Baso % (Auto) Lymph # (Auto) Bailey # (Auto) Eos # (Auto) Baso # (Auto) Abs Immat Gran (auto) Absolute Neuts (auto) Absolute Nucleated RBC Nucleated RBC % (auto) PT INR APTT VBG pH 7.50 H VBG pCO2 42 VBG pO2 63 VBG HCO3 33 H VBG O2 Saturation 89.0 VBG Base Excess 9.3 Sodium Potassium Chloride Carbon Dioxide Anion Gap BUN Creatinine Estim Creat Clear Calc Estimated GFR Random Glucose Lactic Acid Calcium Magnesium Total Bilirubin Direct Bilirubin AST ALT Alkaline Phosphatase Total Creatine Kinase Troponin I High Sens B-Natriuretic Peptide Total Protein Albumin Lipase Ethyl Alcohol Acetone, Qual COVID-19 (POWER) COVID-19 Clin Com ECG Interpretation: In the initial EKG, there is underlying atrial fibrillation, frequent PVCs. Overall rate 66/min. Currently on telemetry, he is in atrial fibrillation in the 60s and there are occasional PVCs. Assessment and Plan (1) Dizziness: Status: Acute (2) Permanent atrial fibrillation: Status: Acute (3) PVC (premature ventricular contraction): Status: Acute (4) Chronic combined systolic and diastolic congestive heart failure: Status: Acute (5) DARLENE on CPAP: Status: Acute (6) Pulmonary hypertension: Status: Acute Sensation of feeling dizzy with head movements alone, even while lifting head up from pillow seems somewhat atypical for cardiac. Doubt if it is related to atrial fibrillation or PVCs. In the initial EKG, there was a question of possible heart block but on looking at telemetry, in areas where there are no PVCs there is clear atrial fibrillation and conducted QRS complexes at a rate of 60 +/Min. Hence doubt there is any active heart block. In any case which check his digoxin level and ensure there is no toxicity especially considering his baseline renal insufficiency. Per discharge summary from [facility], LVEF stated to be 50% which is in the preserved territory but we will need to obtain the full report. Additionally, with regard to diuretics it seems he was aggressively diuresed for almost 15 L or so in [facility] and hence it is possible that he might be a bit on the core drier side. Again, only way to definitively no is to interrogate the CardioMEMS if possible tomorrow. Will follow up with you. Procedures Date of Service Date of Service: 07/17/21
[2021-07-17 15:04] LABS: Digoxin 0.5 ng/mL (0.8-2.0)
[2021-07-17] MEDS: Insulin Lispro 100 UNIT/ML 3 ML VIAL 15 UNIT SUBCUT (15:25)
[2021-07-17] MEDS: diazePAM 5 MG TABLET PO (15:25)
[2021-07-17 15:26] VITALS: BP 116/63; PULSE 71; RESP 18; O2SAT 97
[2021-07-17] MEDS: Pantoprazole Sodium 40 MG/10 ML VIAL IVPUSH (16:17)
--- NOTE | 2021-07-17 16:20 | PHA.MEDREC ---
Pharmacy Consult ? Medication Reconciliation Pharmacy has completed the medication reconciliation.
[2021-07-17 16:44] LABS: Troponin-I High Sensitivity 27.2 ng/L (<3.5-35.0)
--- NOTE | 2021-07-17 16:46 | P.HPHOSP_ITS ---
History of Present Illness Date of Service: 07/17/21 Attending physician on admission: Obdulio Wyatt Chief Complaint: dizziness, nausea and vomiting This is a 61-year-old male with numerous medical problems was brought to the emergency department with multiple complaints. Patient states yesterday at 04:30 in the morning he began having nausea and vomiting with associated dizziness. He reports that his dizziness has been persistent since onset but is worse when he moves his head. He denies tinnitus, recent illness. He had previous similar episode of dizziness many years ago which was caused by a stroke. He has had multiple episodes of vomiting, the latter of which he thinks may have had blood streaks. He denies any associated abdominal pain. EN route to the hospital he had left-sided chest pain which radiated down his left arm which has since resolved. He reports a good appetite prior to onset of symptoms no associated diarrhea, no travel and no takeout food. He also reports an associated headache which she reports is chronic in nature but worse than his baseline. He denies any visual changes, difficulty with speech or weakness in extremities. In the emergency department lab work was significant for leukocytosis of 13.3, INR 2.8, BUN 101, creatinine 1.99, blood sugar 410. For hyperglycemia he received 15 units of Humalog with repeat of 314. He was noted to be bradycardic and EKG was obtained. There is some concern regarding possible heart block and forming roll operator heavy duty was consulted. He was seen by Cardiology wall in the emergency department who did not feel it is EKG represented a heart block. He did not feel that the dizziness was cardiac in nature. Troponin was checked and remained flat at 24.8, 27.2. He received meclizine and Valium with no resolution of symptoms. Due to possible blood-streaked emesis as well as elevated BUN he received a dose of IV Protonix. Brain CT showed chronic left a subtle encephalomalacia in global volume loss but no evidence of acute stroke. Ofnote, patient was recently admitted to [facility] secondary to heart failure. Admission notes obtained and in paper chart. Vaccination status- patient has received Pfizer vaccine x2 plus booster Review of Systems Review of Systems: Yes all other systems are reviewed and are negative Constitutional: Constitutional: Denies chills, Denies fever(s) and Reports headache(s) Eyes: Eyes: Denies loss of vision ENT: Reports dizziness and Reports headache(s) Cardiovascular: Cardiovascular: Reports chest pain, Denies palpitations and Denies dyspnea Respiratory: Respiratory: Denies cough and Denies dyspnea Gastrointestinal: Gastrointestinal: Denies abdominal pain, Denies diarrhea, Reports nausea and Reports vomiting Neurologic: Reports dizziness, Reports headache(s) and Denies loss of vision Endocrine: Endocrine: Denies palpitations [facility] Medical History (Updated 07/17/21 @ 16:59 by BRENTON Lang) CAD (coronary artery disease) Cataract Cholecystectomy planned Chronic combined systolic and diastolic congestive heart failure Chronic respiratory failure CKD (chronic kidney disease) stage 3, GFR 30-59 ml/min CVA (cerebral vascular accident) Diabetes Heart attack HTN (hypertension) Hyperlipidemia Neuropathy DARLENE on CPAP Permanent atrial fibrillation Polycythemia vera Pulmonary hypertension Toe amputee Functional capacity: independent ambulation Family History (Updated 09/16/20 @ 11:46 by Saskia Lang) Father Diabetes Hx of cancer antigen 125 (CA-125) measurement Mother Diabetes Brother Diabetes Hx of cancer antigen 125 (CA-125) measurement Pertinent family history: h/o heart disease in both mother and father Surgical History (Updated 07/17/21 @ 17:00 by BRENTON Lang) History of cholecystectomy Social History Household Members: Caregiver Housing: House Do you presently have visiting nurse or other home services: Yes Alcohol intake: current Alcohol intake frequency: holidays/special occasions only Alcohol type: beer Advance Directives: No Advance Directives Information Provided: Yes service: No Current occupational status: disabled Meds Allergies Allergy/AdvReac Type Severity Reaction Status Date / Time No Known Allergies Allergy Unknown NKDA Verified 07/17/21 13:37 Active Medications: Current Medications Acetaminophen (Acetaminophen 325 Mg Tablet) 650 mg PO Q6H PRN PRN Reason: Pain, Mild (Pain Scale 1-3) Amitriptyline HCl (Amitriptyline Hcl 50 Mg Tablet) 150 mg PO BEDTIME ALEM Amitriptyline HCl (Amitriptyline Hcl 50 Mg Tablet) 50 mg PO DAILY ALEM Amlodipine Besylate (Amlodipine Besylate 10 Mg Tablet) 10 mg PO DAILY ALEM; Protocol Ascorbic Acid (Ascorbic Acid 500 Mg Tablet) 500 mg PO DAILY ALEM Atorvastatin Calcium (Atorvastatin Calcium 80 Mg Tablet) 80 mg PO DAILY ALEM Dextrose (Dextrose 50 % 25 Gm/50 Ml Syringe) 25 gm IVPUSH Q15M PRN; Protocol PRN Reason: per Hypoglycemia Standing Ord. Docusate Sodium (Docusate Sodium 100 Mg Capsule) 100 mg PO DAILY PRN PRN Reason: Constipation Glucose (Glucose Gel 15 Gm Gel..Gram.) 15 gm PO Q15M PRN; Protocol PRN Reason: per Hypoglycemia Standing Ord. Hydralazine HCl (Hydralazine Hcl 25 Mg Tablet) 25 mg PO TID [facility]; Protocol Insulin Human Lispro (Insulin Lispro 100 Unit/Ml 3 Ml Vial) 0 unit SUBCUT QIDACHS [facility]; Protocol Isosorbide Mononitrate (Isosorbide Mononitrate 60 Mg Tab.Er.24h) 60 mg PO DAILY [facility]; Protocol Ondansetron HCl (Ondansetron Hcl 4 Mg/2 Ml Vial) 4 mg IVPUSH Q8H PRN PRN Reason: Nausea and Vomiting Pantoprazole Sodium (Pantoprazole Sodium 40 Mg/10 Ml Vial) 40 mg IVPUSH DAILY@0630 [facility] Pharmacy Consult (Consult Rx Perform Med Rec) 1 each MISCELLANE ONCE PRN PRN Reason: Consult order Sodium Chloride (0.9 % Sodium Chloride Flush 3 Ml Syringe) 3 ml IVFLUSH QSHIFT [facility] Home Medications Medication Instructions Recorded Confirmed Last Taken Type amitriptyline 50 mg tablet 1 tab PO DAILY 05/08/20 07/17/21 05/07/20 History atorvastatin 80 mg tablet 1 tab PO DAILY 05/08/20 07/17/21 05/07/20 History digoxin 125 mcg (0.125 mg) tablet 1 tab PO DAILY 05/08/20 07/17/21 05/07/20 History dulaglutide 1.5 mg/0.5 mL 1 mg SUBCUT QWEEK 05/08/20 07/17/21 05/03/20 History subcutaneous pen injector (Trulicity) insulin regular hum U-500 conc 500 20 unit SUBCUT QAM 05/08/20 07/17/21 05/07/20 08:00 History unit/mL subcutaneous soln (Humulin R U-500 (Concentrated) Insulin) metoprolol succinate 25 mg 1 tab PO DAILY 05/08/20 07/17/21 05/07/20 History tablet,extended release 24 hr warfarin 2.5 mg tablet 2 tab PO LU 05/08/20 07/17/21 05/07/20 History amitriptyline 50 mg tablet 150 mg PO BEDTIME 07/17/21 07/17/21 Unknown History amlodipine 10 mg tablet 1 tab PO DAILY 07/17/21 07/17/21 Unknown History ascorbic acid (vitamin C) 500 mg 500 mg PO DAILY 07/17/21 07/17/21 Unknown History tablet hydralazine 25 mg tablet 1 tab PO TID 07/17/21 07/17/21 Unknown History insulin regular hum U-500 conc 500 10 unit SUBCUT BEDTIME 07/17/21 07/17/21 Unknown History unit/mL subcutaneous soln (Humulin R U-500 (Concentrated) Insulin) isosorbide mononitrate 60 mg 1 tab PO DAILY 07/17/21 07/17/21 Unknown History tablet,extended release 24 hr metolazone 5 mg tablet 1 tab PO DAILY 07/17/21 07/17/21 Unknown History potassium chloride 10 mEq 10 meq PO DAILY 07/17/21 07/17/21 Unknown History capsule,extended release torsemide 100 mg tablet 1 tab PO BID 07/17/21 07/17/21 Unknown History warfarin 2.5 mg tablet 1 tab PO MOTUWETHFRSA 07/17/21 07/17/21 Unknown History Physical Exam Vital Signs and Narrative: Vital Signs: Last Vital Signs Temp 97.6 F 07/17/21 13:33 Pulse 71 07/17/21 15:26 Resp 18 07/17/21 15:26 BP 116/63 07/17/21 15:26 Pulse Ox 97 07/17/21 15:26 Oxygen Flow Rate 2 07/17/21 13:33 BMI result Body Mass Index 42.0 Const: General: alert and awake Orientation/consciousness: patient oriented x3 HENMT: Other: dry mucous membranes Eyes: Pupils: Equal, round and reactive pupils present Resp: Effort & Inspection: normal respiratory effort, able to speak in complete sentences and no respiratory distress Cardio: Rate: regular rate Heart sounds: S1 normal heart sound present and S2 normal heart sound present GI: Other: mild tenderness with palpation primarily left upper quadrant Inspection: No distended and Yes Abdominal panniculus present Palpation (GI): Soft to palpation Skin: Other: chronic skin changes b/l lower legs Neuro: General: patient oriented x3 and moves all extremities Cranial nerves: Yes CN's II-XII intact bilaterally, Yes Equal, round and reactive pupils present, Yes Nystagmus not present and Yes Midline tongue present Cognition (Neuro): normal cognition Motor exam (neuro): Pronator motor function not present and no tremor noted Extrem: Other: Able to move all 4 extremities spontaneously. Minimal edema bilateral Results Labs CBC and Chem 7: 07/17/21 13:49 07/17/21 13:49 Labs: Laboratory Results - last 24 hr 07/17/21 07/17/21 07/17/21 13:48 13:48 13:48 MCV MCH MCHC RDW Plt Count MPV Immature Gran % (Auto) Neut % (Auto) Lymph % (Auto) [place] % (Auto) Eos % (Auto) Baso % (Auto) Lymph # (Auto) [place] # (Auto) Eos # (Auto) Baso # (Auto) Abs Immat Gran (auto) Absolute Neuts (auto) Absolute Nucleated RBC Nucleated RBC % (auto) PT INR APTT VBG pH VBG pCO2 VBG pO2 VBG HCO3 VBG O2 Saturation VBG Base Excess Anion Gap Estim Creat Clear Calc Estimated GFR Random Glucose Lactic Acid Calcium Magnesium Total Bilirubin Direct Bilirubin AST ALT Alkaline Phosphatase Total Creatine Kinase Troponin I High Sens 24.8 B-Natriuretic Peptide 487 H Total Protein Albumin Lipase Digoxin Ethyl Alcohol < 10 Acetone, Qual COVID-19 (POWER) COVID-19 Clin Com 07/17/21 07/17/21 07/17/21 13:48 13:48 13:49 MCV 85.7 MCH 28.6 MCHC 33.3 RDW 16.3 H Plt Count 362 MPV 10.1 Immature Gran % (Auto) 0.3 Neut % (Auto) 84.1 H Lymph % (Auto) 6.7 L [place] % (Auto) 7.9 Eos % (Auto) 0.7 Baso % (Auto) 0.3 Lymph # (Auto) 0.9 L [place] # (Auto) 1.1 Eos # (Auto) 0.1 Baso # (Auto) 0.0 Abs Immat Gran (auto) 0.04 H Absolute Neuts (auto) 11.2 H Absolute Nucleated RBC 0.000 Nucleated RBC % (auto) 0.0 PT INR APTT VBG pH VBG pCO2 VBG pO2 VBG HCO3 VBG O2 Saturation VBG Base Excess Anion Gap Estim Creat Clear Calc Estimated GFR Random Glucose Lactic Acid Calcium Magnesium Total Bilirubin Direct Bilirubin AST ALT Alkaline Phosphatase Total Creatine Kinase Troponin I High Sens B-Natriuretic Peptide Total Protein Albumin Lipase Digoxin 0.5 L Ethyl Alcohol Acetone, Qual Negative COVID-19 (POWER) COVID-19 Clin Com 07/17/21 07/17/21 07/17/21 13:49 13:49 13:49 MCV MCH MCHC RDW Plt Count MPV Immature Gran % (Auto) Neut % (Auto) Lymph % (Auto) [place] % (Auto) Eos % (Auto) Baso % (Auto) Lymph # (Auto) [place] # (Auto) Eos # (Auto) Baso # (Auto) Abs Immat Gran (auto) Absolute Neuts (auto) Absolute Nucleated RBC Nucleated RBC % (auto) PT 32.6 H INR 2.8 H APTT 51.2 H VBG pH VBG pCO2 VBG pO2 VBG HCO3 VBG O2 Saturation VBG Base Excess Anion Gap 18 Estim Creat Clear Calc 56.4 Estimated GFR 35 Random Glucose 410 H* Lactic Acid 1.9 Calcium 8.6 Magnesium 2.7 H Total Bilirubin 2.2 H Direct Bilirubin 1.1 H AST 40 H D ALT 30 Alkaline Phosphatase 185 H Total Creatine Kinase 95 Troponin I High Sens B-Natriuretic Peptide Total Protein 6.7 Albumin 2.7 L D Lipase 50 Digoxin Ethyl Alcohol Acetone, Qual COVID-19 (POWER) COVID-19 Clin Com 07/17/21 07/17/21 07/17/21 13:49 13:54 16:19 MCV MCH MCHC RDW Plt Count MPV Immature Gran % (Auto) Neut % (Auto) Lymph % (Auto) [place] % (Auto) Eos % (Auto) Baso % (Auto) Lymph # (Auto) [place] # (Auto) Eos # (Auto) Baso # (Auto) Abs Immat Gran (auto) Absolute Neuts (auto) Absolute Nucleated RBC Nucleated RBC % (auto) PT INR APTT VBG pH 7.50 H VBG pCO2 42 VBG pO2 63 VBG HCO3 33 H VBG O2 Saturation 89.0 VBG Base Excess 9.3 Anion Gap Estim Creat Clear Calc Estimated GFR Random Glucose Lactic Acid Calcium Magnesium Total Bilirubin Direct Bilirubin AST ALT Alkaline Phosphatase Total Creatine Kinase Troponin I High Sens 27.2 B-Natriuretic Peptide Total Protein Albumin Lipase Digoxin Ethyl Alcohol Acetone, Qual COVID-19 (POWER) Negative COVID-19 Clin Com See Note Imaging Radiologist's Impressions: Impressions Chest X-Ray 07/17/21 14:12 IMPRESSION: No acute intrathoracic disease. Head CT 07/17/21 14:28 IMPRESSION: No acute intracranial abnormality. Other stable findings, as described above. Assessment and Plan (1) Dizziness: Status: Acute (2) Nausea & vomiting: Qualifiers: Vomiting type: unspecified Qualified Code(s): R11.2 - Nausea with vomiting, unspecified Status: Acute (3) Hyperglycemia: Status: Acute This is a 61-year-old male with hypertension, hyperlipidemia, CAD, d iabetes, DARLENE, atrial fibrillation on Coumadin, polycythemia vera, CKD 3, combined diastolic and systolic heart failure with CardioMEMS device, chronic respiratory failure on 2 L, pulmonary hypertension, peripheral neuropathy here with nausea, vomiting, dizziness Dizziness Persistent since onset, concern for possible posterior circulation stroke Brain CT negative Patient states he is unable to tolerate MRI due to claustrophobia Patient will be admitted to telemetry for close monitoring Neuro checks, Neurology evaluation PT evaluation Continue home dose of statin Does not appear to be on antiplatelet at home,? due to anticoagulation with coumadin Nausea and vomiting no further episodes since arrival antiemetics possible GI bleed blood streaked vomitus ? Brinda-Reyes tear BUN elevated IV PPI follow CBC hold coumadin Permanent atrial fibrillation hold metoprolol/digoxin due to bradycardia hold coumadin for ?GI bleed follow INR bradycardia/possible heart block seen by cardiology, less likely heart block, afib on EKG HR improved to 70s at this time, but will hold digoxin, metoprolol for now digoxin level checked, wnl Combined systolic and diastolic HF with CardioMEMS device Clinically appears dry, recent admission to [facility] with extensive diuresis Will hold diuretics, torsemide and metolazone seen by cardiology, plan to interrogate cardiomems tomorrow elevated LFTs ? r/t vomiting trend LFTs leukocytosis ?reactive from vomiting no obvious source of infection at this time trend cbc Diabetes with hyperglycemia No evidence of DKA. Blood sugar improved after 15 units Humalog in ED Check hemoglobin A1c Trulicity and baseline Regular U-500 non formulary, on hold Will tighten normal sliding scale, monitor 24 hour insulin requirements and then will likely need long acting Lantus ADA diet CAD episode of CP resolved trops flat continue statin, imdur BB on hold HTN Blood pressure controlled continue amlodipine, hydralazine b/l cerumen on CT scan can consider debrox chronic respiratory failure on 2L at baseline Morbid obesity BMI 42.0 DARLENE cpap dvt ppx - mechanical devices; coumadin on hold for possible GIB code status - full code Attending - dr. wyatt Quality Stroke Does the patient have a stroke diagnosis?: No VTE Prior VTE?: No VTE Risk Level:: Medical - moderate - high VTE Device Contraindication: N/A - Device Ordered VTE Drug Contraindication: Treatment Not Indicated
[2021-07-17 16:47] LABS: Glucose, Whole Blood 314 mg/dL (60-115)
--- NOTE | 2021-07-17 17:36 | PC.NURSE ---
Pt's caregiver Aldair: [phone]
[2021-07-17] MEDS: Insulin Lispro 100 UNIT/ML 3 ML VIAL SUBCUT ×2 (18:33→23:53)
--- NOTE | 2021-07-17 18:34 | PC.NURSE ---
Pt's scheduled insulin given at this time. Pt also given dinner at this time and tolerating moderately.
[2021-07-17 18:39] VITALS: BP 144/105; PULSE 64
[2021-07-17 19:53] LABS: Glucose, Whole Blood 274 mg/dL (60-115)
[2021-07-17 20:30] VITALS: BP 141/67; PULSE 62; RESP 18; TEMP 36.5; O2SAT 96
[2021-07-17] MEDS: hydrALAZINE HCl 25 MG TABLET PO (23:08)
[2021-07-17 23:19] LABS: Glucose, Whole Blood 206 mg/dL (60-115)
[2021-07-18] VITALS (8 sets, daily range): BP systolic 108–141; BP diastolic 65–83; PULSE 57–74; RESP 12–19; TEMP 36.4–37.1; O2SAT 93–97
[2021-07-18 03:31] LABS: Appearance Urine HAZY; Color Urine STRAW; Glucose Urine UA NEG (NEG); Leukocyte Esterase Urine NEG (NEG); Nitrite Urine NEG (NEG); PH 5.5 (5.0-8.0); UACC Culture Trigger NO; Urine Blood 3+ (NEG); Urine Ketones NEG (NEG); Urine Protein TRACE MG/DL (NEG-TRACE)
[2021-07-18 03:39] LABS: Bacteria Urine 1+ /LPF; Squamous Epithelial Cell Urine 1+ /LPF
[2021-07-18 03:45] LABS: Amphetamine Screen Urine Not Detected (Not Detect); Barbiturates, Urine Not Detected (Not Detect); Benzodiazepines Screen Urine Not Detected (Not Detect); Cannabinoid Screen Urine Not Detected (Not Detect); Cocaine Screen Urine Not Detected (Not Detect); Fentanyl, urine Not Detected (Not Detect); Opiate Screen Urine Not Detected (Not Detect); Phencyclidine Screen Urine Not Detected (Not Detect)
--- NOTE | 2021-07-18 03:48 | PC.NURSE ---
pt had mcknight placed due to not being able to void. 1,000cc out put. pt complaining of mcknight demanding it be removal.
[2021-07-18 04:46] LABS: Estimated Average Glucose 200 mg/dL; Hemoglobin A1c % 8.6 %
[2021-07-18] MEDS: Acetaminophen 325 MG TABLET 650 MG PO (05:05)
--- NOTE | 2021-07-18 05:32 | P.EN_ITS ---
Event Note Date of Service: 07/18/21 Event Note: patient had urinary of over 900 cc in the bladder. A Camilo gl[address] ter was inserted blood patient had significant pain therefore all the urine, the Camilo was removed but immediately after started having Bleeding from the penis. Patient hemodynamically stable. will obtain a CBC, and consult Urology
--- NOTE | 2021-07-18 05:41 | PC.NURSE ---
DR. Wolff notified of pt still have hematuria , cbc ordered and urology conscult placed.
[2021-07-18] MEDS: 0.9 % Sodium Chloride Flush 3 ML SYRINGE IVFLUSH ×3 (06:03→17:43)
[2021-07-18] MEDS: Pantoprazole Sodium 40 MG/10 ML VIAL IVPUSH (06:03)
--- NOTE | 2021-07-18 06:16 | PC.NURSE ---
pt medicated pt Aug.
[2021-07-18 07:19] LABS: Glucose, Whole Blood 116 mg/dL (60-115)
[2021-07-18] MEDS: Insulin Lispro 100 UNIT/ML 3 ML VIAL SUBCUT ×4 (07:42→21:54)
[2021-07-18 07:53] LABS: MANUAL DIFF FLAG NO
[2021-07-18 08:00] LABS: Basophils Absolute Auto 0.1 X10*3/uL (0.0-0.2); Basophils Percent Auto 0.3 % (0-2); Eosinophils Absolute Auto 0.2 X10*3/uL (0.0-0.4); Hematocrit 40.4 % (42.0-52.0); Hemoglobin 13.6 g/dl (14.0-18.0); Imm Gran Abs Auto 0.06 X10*3/uL (0.00-0.03); Imm Gran Pct Auto 0.4 % (0.0-0.4); Lymphocytes Absolute Auto 0.9 X10*3/uL (1.2-4.9); Lymphocytes Percent Auto 6.4 % (20-40); Mean Corpuscular HGB Conc 33.7 g/dl (31.0-36.0); Mean Corpuscular Hemoglobin 28.5 pg (27.0-33.0); Mean Corpuscular Volume 84.7 fL (80.0-98.0); Mean Platelet Volume 9.6 fL (9.4-12.4); Monocytes Absolute Auto 1.2 X10*3/uL (0.1-1.2); Monocytes Percent Auto 8.3 % (2-11); Neutrophils Percent Auto 83.6 % (45-73); Platelet Count 301 X10*3/uL (160-400); Red Blood Count 4.77 X10*6/uL (4.60-5.80); Red Cell Distribution Width 16.5 % (11.0-16.0); White Blood Count 14.3 X10*3/uL (4.8-10.8)
[2021-07-18 08:04] LABS: INTERNATIONAL NORM RATIO 3.1 (0.9-1.1); Prothrombin Time 36.4 SEC (9.9-13.0)
[2021-07-18 08:10] LABS: Alanine Aminotransferase 26 U/L (0-40); Albumin Level 2.5 g/dL (3.5-5.0); Alkaline Phosphatase 158 U/L (39-117); Anion Gap 11 (12-20); Aspartate Amino Transferase 32 U/L (5-37); Bilirubin Direct 1.2 mg/dL (0.0-0.5); Blood Urea Nitrogen 100 mg/dL (9-16); Calcium 8.4 mg/dL (8.4-10.2); Carbon Dioxide 33 mmol/L (22-29); Chloride 96 mmol/L (96-108); Cholesterol 114 mg/dL; Creatinine Clr Calc Pharmacy 58.4; Estimated Glomerular Filt Rate 36; Glucose Random 127 mg/dL (60-115); HDL Cholesterol 29 mg/dL; LDL Cholesterol Calculated 72 mg/dl; Potassium 2.9 mmol/L (3.3-5.1); Sodium 137 mmol/L (135-145); Total Protein 5.9 g/dL (6.5-8.0); Triglycerides 69 mg/dL
[2021-07-18 09:38] LABS: Magnesium 2.7 mg/dL (1.6-2.6)
--- NOTE | 2021-07-18 10:10 | PM.PNCARD ---
Subjective Subjective Date of Service: 07/18/21 <KEYANNA Burdick - Last Filed: 07/18/21 12:24> 07/18/21 <Coleman Burnett MD - Last Filed: 07/18/21 15:52> Principal diagnosis: Dizziness, afib, bradycardia, chronic diastolic HF <KEYANNA Burdick - Last Filed: 07/18/21 12:24> Interval history: Cardiology follow up for the above. Seen at 0900. Today he reports ongoing dizziness, like things are spinning . He reports headache, which has been a chronic issue for him since prior CVA, however now worse. He describes mild nausea like he is car sick . Breathing reported as being comfortable. Wears O2 2 liters at home continually - currently wearing 3 liters with nasal cannula. No coughing. No chest pains, palpitations. He feels abdomen size normal for him. Has pitting leg edema which he states is not new and was still present when he was recently discharged from [facility]. <KEYANNA Burdick - Last Filed: 07/18/21 12:24> Review of Systems Review of Systems as above <KEYANNA Burdick - Last Filed: 07/18/21 12:24> Yes all other systems are reviewed and are negative <KEYANNA Burdick - Last Filed: 07/18/21 12:24> Physical Exam Vital Signs: Last Vital Signs Temp 97.6 F 07/18/21 03:48 Pulse 60 07/18/21 08:43 Resp 16 07/18/21 07:41 BP 132/82 07/18/21 08:43 Pulse Ox 94 07/18/21 03:48 Oxygen Flow Rate 2 07/17/21 13:33 BMI result Body Mass Index 42.0 <KEYANNA Burdick Last Filed: 07/18/21 12:24> Const Other: morbidly obese <KEYANNA Burdick Last Filed: 07/18/21 12:24> General: cooperative, no acute distress, alert and awake <KEYANNA Burdick - Last Filed: 07/18/21 12:24> Orientation/consciousness: patient oriented x3 <ROBERTO BurdickC - Last Filed: 07/18/21 12:24> Eyes Conjunctivae: conjunctivae normal <ROBERTO BurdickC - Last Filed: 07/18/21 12:24> Resp Effort & Inspection: normal respiratory effort, able to speak in complete sentences and not labored <ROBERTO BurdickC - Last Filed: 07/18/21 12:24> Auscultation: clear to auscultation bilaterally, no crackles, no rales, no rhonchi and no wheezes <Hilda Conway ROBERTOC - Last Filed: 07/18/21 12:24> Cardio Jugular venous distension: JVD present <Hilda Conway ROBERTOC Caro Last Filed: 07/18/21 12:24> Rate: regular rate <Hilda Conway ROBERTO Caro Last Filed: 07/18/21 12:24> Rhythm: abnormal rhythm irregularly irregular <Hilda Conway ROBERTO Caro Last Filed: 07/18/21 12:24> Heart sounds: S1 normal heart sound present and S2 normal heart sound present <Hilda Conway NP-C - Last Filed: 07/18/21 12:24> Peripheral pulses: Peripheral pulses 2+ throughout <ROBERTO BurdickC - Last Filed: 07/18/21 12:24> GI Other: obese, nontender <Hilda Conway ROBERTOC Caro Last Filed: 07/18/21 12:24> Skin Other: venous stasis changes to lower legs <Hilda ConwaySOFÍACaroC - Last Filed: 07/18/21 12:24> General skin exam: no rashes or lesions noted <ROBERTO BurdickC - Last Filed: 07/18/21 12:24> Neuro General: patient oriented x3 <Hilda ConwaySOFÍACaroC - Last Filed: 07/18/21 12:24> Extrem Other: pitting edema in lower extremities to upper posterior thighs <Hilda Conway ROBERTOC - Last Filed: 07/18/21 12:24> Objective Labs and Meds Result diagrams: : 07/18/21 07:44 07/18/21 07:44 <KEYANNA Burdick - Last Filed: 07/18/21 12:24> Lab results: Laboratory Results - last 24 hr 07/17/21 07/17/21 07/17/21 13:48 13:48 13:48 WBC RBC Hgb Hct MCV MCH MCHC RDW Plt Count MPV Immature Gran % (Auto) Neut % (Auto) Lymph % (Auto) [place] % (Auto) Eos % (Auto) Baso % (Auto) Lymph # (Auto) [place] # (Auto) Eos # (Auto) Baso # (Auto) Abs Immat Gran (auto) Absolute Neuts (auto) Absolute Nucleated RBC Nucleated RBC % (auto) PT INR APTT VBG pH VBG pCO2 VBG pO2 VBG HCO3 VBG O2 Saturation VBG Base Excess Sodium Potassium Chloride Carbon Dioxide Anion Gap BUN Creatinine Estim Creat Clear Calc Estimated GFR POC Glucose Random Glucose Estimat Average Glucose Hemoglobin A1c % Lactic Acid Calcium Magnesium Total Bilirubin Direct Bilirubin AST ALT Alkaline Phosphatase Total Creatine Kinase Troponin I High Sens 24.8 B-Natriuretic Peptide 487 H Total Protein Albumin Triglycerides Cholesterol LDL Cholesterol, Calc HDL Cholesterol Lipase Urine Color Urine Appearance Urine pH Ur Specific [place] Urine Protein Urine Glucose (UA) Urine Ketones Urine Blood Urine Nitrite Ur Leukocyte Esterase Urine RBC Urine WBC Ur Squamous Epith Cells Urine Bacteria Digoxin Urine Opiates Screen Urine Fentanyl Screen Ur Barbiturates Screen Ur Phencyclidine Scrn Ur Amphetamines Screen U Benzodiazepines Scrn Urine Cocaine Screen U Marijuana (THC) Screen Ethyl Alcohol < 10 Acetone, Qual COVID-19 (POWER) COVID-19 Clin Com 07/17/21 07/17/21 07/17/21 13:48 13:48 13:48 WBC RBC Hgb Hct MCV MCH MCHC RDW Plt Count MPV Immature Gran % (Auto) Neut % (Auto) Lymph % (Auto) [place] % (Auto) Eos % (Auto) Baso % (Auto) Lymph # (Auto) [place] # (Auto) Eos # (Auto) Baso # (Auto) Abs Immat Gran (auto) Absolute Neuts (auto) Absolute Nucleated RBC Nucleated RBC % (auto) PT INR APTT VBG pH VBG pCO2 VBG pO2 VBG HCO3 VBG O2 Saturation VBG Base Excess Sodium Potassium Chloride Carbon Dioxide Anion Gap BUN Creatinine Estim Creat Clear Calc Estimated GFR POC Glucose Random Glucose Estimat Average Glucose 200 Hemoglobin A1c % 8.6 Lactic Acid Calcium Magnesium Total Bilirubin Direct Bilirubin AST ALT Alkaline Phosphatase Total Creatine Kinase Troponin I High Sens B-Natriuretic Peptide Total Protein Albumin Triglycerides Cholesterol LDL Cholesterol, Calc HDL Cholesterol Lipase Urine Color Urine Appearance Urine pH Ur Specific [place] Urine Protein Urine Glucose (UA) Urine Ketones Urine Blood Urine Nitrite Ur Leukocyte Esterase Urine RBC Urine WBC Ur Squamous Epith Cells Urine Bacteria Digoxin 0.5 L Urine Opiates Screen Urine Fentanyl Screen Ur Barbiturates Screen Ur Phencyclidine Scrn Ur Amphetamines Screen U Benzodiazepines Scrn Urine Cocaine Screen U Marijuana (THC) Screen Ethyl Alcohol Acetone, Qual Negative COVID-19 (POWER) COVID-19 Clin Com 07/17/21 07/17/21 07/17/21 13:49 13:49 13:49 WBC 13.3 H RBC 5.11 Hgb 14.6 Hct 43.8 MCV 85.7 MCH 28.6 MCHC 33.3 RDW 16.3 H Plt Count 362 MPV 10.1 Immature Gran % (Auto) 0.3 Neut % (Auto) 84.1 H Lymph % (Auto) 6.7 L [place] % (Auto) 7.9 Eos % (Auto) 0.7 Baso % (Auto) 0.3 Lymph # (Auto) 0.9 L [place] # (Auto) 1.1 Eos # (Auto) 0.1 Baso # (Auto) 0.0 Abs Immat Gran (auto) 0.04 H Absolute Neuts (auto) 11.2 H Absolute Nucleated RBC 0.000 Nucleated RBC % (auto) 0.0 PT 32.6 H INR 2.8 H APTT 51.2 H VBG pH VBG pCO2 VBG pO2 VBG HCO3 VBG O2 Saturation VBG Base Excess Sodium 134 L Potassium 3.3 D Chloride 91 L Carbon Dioxide 28 Anion Gap 18 BUN 101 H Creatinine 1.99 H Estim Creat Clear Calc 56.4 Estimated GFR 35 POC Glucose Random Glucose 410 H* Estimat Average Glucose Hemoglobin A1c % Lactic Acid Calcium 8.6 Magnesium 2.7 H Total Bilirubin 2.2 H Direct Bilirubin 1.1 H AST 40 H D ALT 30 Alkaline Phosphatase 185 H Total Creatine Kinase 95 Troponin I High Sens B-Natriuretic Peptide Total Protein 6.7 Albumin 2.7 L D Triglycerides Cholesterol LDL Cholesterol, Calc HDL Cholesterol Lipase 50 Urine Color Urine Appearance Urine pH Ur Specific [place] Urine Protein Urine Glucose (UA) Urine Ketones Urine Blood Urine Nitrite Ur Leukocyte Esterase Urine RBC Urine WBC Ur Squamous Epith Cells Urine Bacteria Digoxin Urine Opiates Screen Urine Fentanyl Screen Ur Barbiturates Screen Ur Phencyclidine Scrn Ur Amphetamines Screen U Benzodiazepines Scrn Urine Cocaine Screen U Marijuana (THC) Screen Ethyl Alcohol Acetone, Qual COVID-19 (POWER) COVID-19 Clin Com 07/17/21 07/17/21 07/17/21 13:49 13:49 13:54 WBC RBC Hgb Hct MCV MCH MCHC RDW Plt Count MPV Immature Gran % (Auto) Neut % (Auto) Lymph % (Auto) [place] % (Auto) Eos % (Auto) Baso % (Auto) Lymph # (Auto) [place] # (Auto) Eos # (Auto) Baso # (Auto) Abs Immat Gran (auto) Absolute Neuts (auto) Absolute Nucleated RBC Nucleated RBC % (auto) PT INR APTT VBG pH 7.50 H VBG pCO2 42 VBG pO2 63 VBG HCO3 33 H VBG O2 Saturation 89.0 VBG Base Excess 9.3 Sodium Potassium Chloride Carbon Dioxide Anion Gap BUN Creatinine Estim Creat Clear Calc Estimated GFR POC Glucose Random Glucose Estimat Average Glucose Hemoglobin A1c % Lactic Acid 1.9 Calcium Magnesium Total Bilirubin Direct Bilirubin AST ALT Alkaline Phosphatase Total Creatine Kinase Troponin I High Sens B-Natriuretic Peptide Total Protein Albumin Triglycerides Cholesterol LDL Cholesterol, Calc HDL Cholesterol Lipase Urine Color Urine Appearance Urine pH Ur Specific [place] Urine Protein Urine Glucose (UA) Urine Ketones Urine Blood Urine Nitrite Ur Leukocyte Esterase Urine RBC Urine WBC Ur Squamous Epith Cells Urine Bacteria Digoxin Urine Opiates Screen Urine Fentanyl Screen Ur Barbiturates Screen Ur Phencyclidine Scrn Ur Amphetamines Screen U Benzodiazepines Scrn Urine Cocaine Screen U Marijuana (THC) Screen Ethyl Alcohol Acetone, Qual COVID-19 (POWER) Negative COVID-19 Clin Com See Note 07/17/21 07/17/21 07/17/21 16:19 16:44 19:48 WBC RBC Hgb Hct MCV MCH MCHC RDW Plt Count MPV Immature Gran % (Auto) Neut % (Auto) Lymph % (Auto) [place] % (Auto) Eos % (Auto) Baso % (Auto) Lymph # (Auto) [place] # (Auto) Eos # (Auto) Baso # (Auto) Abs Immat Gran (auto) Absolute Neuts (auto) Absolute Nucleated RBC Nucleated RBC % (auto) PT INR APTT VBG pH VBG pCO2 VBG pO2 VBG HCO3 VBG O2 Saturation VBG Base Excess Sodium Potassium Chloride Carbon Dioxide Anion Gap BUN Creatinine Estim Creat Clear Calc Estimated GFR POC Glucose 314 H 274 H Random Glucose Estimat Average Glucose Hemoglobin A1c % Lactic Acid Calcium Magnesium Total Bilirubin Direct Bilirubin AST ALT Alkaline Phosphatase Total Creatine Kinase Troponin I High Sens 27.2 B-Natriuretic Peptide Total Protein Albumin Triglycerides Cholesterol LDL Cholesterol, Calc HDL Cholesterol Lipase Urine Color Urine Appearance Urine pH Ur Specific [place] Urine Protein Urine Glucose (UA) Urine Ketones Urine Blood Urine Nitrite Ur Leukocyte Esterase Urine RBC Urine WBC Ur Squamous Epith Cells Urine Bacteria Digoxin Urine Opiates Screen Urine Fentanyl Screen Ur Barbiturates Screen Ur Phencyclidine Scrn Ur Amphetamines Screen U Benzodiazepines Scrn Urine Cocaine Screen U Marijuana (THC) Screen Ethyl Alcohol Acetone, Qual COVID-19 (POWER) COVID-19 [place] Com 07/17/21 07/18/21 07/18/21 23:11 03:14 03:14 WBC RBC Hgb Hct MCV MCH MCHC RDW Plt Count MPV Immature Gran % (Auto) Neut % (Auto) Lymph % (Auto) [place] % (Auto) Eos % (Auto) Baso % (Auto) Lymph # (Auto) [place] # (Auto) Eos # (Auto) Baso # (Auto) Abs Immat Gran (auto) Absolute Neuts (auto) Absolute Nucleated RBC Nucleated RBC % (auto) PT INR APTT VBG pH VBG pCO2 VBG pO2 VBG HCO3 VBG O2 Saturation VBG Base Excess Sodium Potassium Chloride Carbon Dioxide Anion Gap BUN Creatinine Estim Creat Clear Calc Estimated GFR POC Glucose 206 H Random Glucose Estimat Average Glucose Hemoglobin A1c % Lactic Acid Calcium Magnesium Total Bilirubin Direct Bilirubin AST ALT Alkaline Phosphatase Total Creatine Kinase Troponin I High Sens B-Natriuretic Peptide Total Protein Albumin Triglycerides Cholesterol LDL Cholesterol, Calc HDL Cholesterol Lipase Urine Color STRAW Urine Appearance HAZY Urine pH 5.5 Ur Specific [place] 1.020 Urine Protein TRACE Urine Glucose (UA) NEG Urine Ketones NEG Urine Blood 3+ H Urine Nitrite NEG Ur Leukocyte Esterase NEG Urine RBC 76-150 H Urine WBC 1-4 Ur Squamous Epith Cells 1+ Urine Bacteria 1+ Digoxin Urine Opiates Screen Not Detected Urine Fentanyl Screen Not Detected Ur Barbiturates Screen Not Detected Ur Phencyclidine Scrn Not Detected Ur Amphetamines Screen Not Detected U Benzodiazepines Scrn Not Detected Urine Cocaine Screen Not Detected U Marijuana (THC) Screen Not Detected Ethyl Alcohol Acetone, Qual COVID-19 (POWER) COVID-19 Clin Com 07/18/21 07/18/21 07/18/21 07:15 07:44 07:44 WBC RBC Hgb Hct MCV MCH MCHC RDW Plt Count MPV Immature Gran % (Auto) Neut % (Auto) Lymph % (Auto) [place] % (Auto) Eos % (Auto) Baso % (Auto) Lymph # (Auto) [place] # (Auto) Eos # (Auto) Baso # (Auto) Abs Immat Gran (auto) Absolute Neuts (auto) Absolute Nucleated RBC Nucleated RBC % (auto) PT 36.4 H INR 3.1 H APTT VBG pH VBG pCO2 VBG pO2 VBG HCO3 VBG O2 Saturation VBG Base Excess Sodium 137 Potassium 2.9 L Chloride 96 Carbon Dioxide 33 H Anion Gap 11 L BUN 100 H Creatinine 1.92 H Estim Creat Clear Calc 58.4 Estimated GFR 36 POC Glucose 116 H Random Glucose 127 H D Estimat Average Glucose Hemoglobin A1c % Lactic Acid Calcium 8.4 Magnesium 2.7 H Total Bilirubin 2.0 H Direct Bilirubin 1.2 H AST 32 ALT 26 Alkaline Phosphatase 158 H Total Creatine Kinase Troponin I High Sens B-Natriuretic Peptide Total Protein 5.9 L Albumin 2.5 L Triglycerides 69 Cholesterol 114 LDL Cholesterol, Calc 72 HDL Cholesterol 29 Lipase Urine Color Urine Appearance Urine pH Ur Specific [place] Urine Protein Urine Glucose (UA) Urine Ketones Urine Blood Urine Nitrite Ur Leukocyte Esterase Urine RBC Urine WBC Ur Squamous Epith Cells Urine Bacteria Digoxin Urine Opiates Screen Urine Fentanyl Screen Ur Barbiturates Screen Ur Phencyclidine Scrn Ur Amphetamines Screen U Benzodiazepines Scrn Urine Cocaine Screen U Marijuana (THC) Screen Ethyl Alcohol Acetone, Qual COVID-19 (POWER) COVID-19 Clin Com 07/18/21 07:44 WBC 14.3 H RBC 4.77 Hgb 13.6 L Hct 40.4 L MCV 84.7 MCH 28.5 MCHC 33.7 RDW 16.5 H Plt Count 301 MPV 9.6 Immature Gran % (Auto) 0.4 Neut % (Auto) 83.6 H Lymph % (Auto) 6.4 L [place] % (Auto) 8.3 Eos % (Auto) 1.0 Baso % (Auto) 0.3 Lymph # (Auto) 0.9 L [place] # (Auto) 1.2 Eos # (Auto) 0.2 Baso # (Auto) 0.1 Abs Immat Gran (auto) 0.06 H Absolute Neuts (auto) 12.0 H Absolute Nucleated RBC 0.000 Nucleated RBC % (auto) 0.0 PT INR APTT VBG pH VBG pCO2 VBG pO2 VBG HCO3 VBG O2 Saturation VBG Base Excess Sodium Potassium Chloride Carbon Dioxide Anion Gap BUN Creatinine Estim Creat Clear Calc Estimated GFR POC Glucose Random Glucose Estimat Average Glucose Hemoglobin A1c % Lactic Acid Calcium Magnesium Total Bilirubin Direct Bilirubin AST ALT Alkaline Phosphatase Total Creatine Kinase Troponin I High Sens B-Natriuretic Peptide Total Protein Albumin Triglycerides Cholesterol LDL Cholesterol, Calc HDL Cholesterol Lipase Urine Color Urine Appearance Urine pH Ur Specific [place] Urine Protein Urine Glucose (UA) Urine Ketones Urine Blood Urine Nitrite Ur Leukocyte Esterase Urine RBC Urine WBC Ur Squamous Epith Cells Urine Bacteria Digoxin Urine Opiates Screen Urine Fentanyl Screen Ur Barbiturates Screen Ur Phencyclidine Scrn Ur Amphetamines Screen U Benzodiazepines Scrn Urine Cocaine Screen U Marijuana (THC) Screen Ethyl Alcohol Acetone, Qual COVID-19 (POWER) COVID-19 Clin Com <KEYANNA Burdick - Last Filed: 07/18/21 12:24> Imaging Radiologist's impression: Impressions Chest X-Ray 07/17/21 14:12 IMPRESSION: No acute intrathoracic disease. Head CT 07/17/21 14:28 IMPRESSION: No acute intracranial abnormality. Other stable findings, as described above. <KEYANNA Burdick - Last Filed: 07/18/21 12:24> Progress Note: A&P Assessment and plan (1) Dizziness: Status: Acute <KEYANNA Burdick - Last Filed: 07/18/21 12:24> Assessment and Plan: Report of dizziness on admit, room spinning , feeling car sick , headache. He reports similar issues since prior CVA but Now increased. CT of head shows no acute findings. EKG with afib, PVCs, rate 60s. Due to concerns for symptomatic bradycardia, his home Metoprolol and digoxin placed on hold. Dig level 0.5. Tele today shows afib, PVCs, rates 60-70s. Trying to obtain last echo report. Heart rate, rhythm not likely to be causing his symptom of dizziness. His description is more like vertigo. He is now on Meclizine and still has symptoms. Discussed with Dr Burnett. Recommend MRI of brain to assess for new CVA, check posterior circulation. <KEYANNA Burdick - Last Filed: 07/18/21 12:24> (2) Atrial fibrillation: Status: Acute <KEYANNA Burdick - Last Filed: 07/18/21 12:24> Assessment and Plan: Hx of chronic afib. Normally on Metoprolol and digoxin for heart rate control. They are currently on hold as above. Rates currently controlled. Will restart Metoprolol to help maintain heart rate control. Can hold on restart of digoxin. Cr 1.92. Has hx of CKD. On Warfarin for anticoagulation. INR goal 2-3. INR 3.1 today. Ongoing tele monitoring. <KEYANNA Burdick - Last Filed: 07/18/21 12:24> (3) Chronic combined systolic and diastolic congestive heart failure: Status: Acute <KEYANNA Burdick - Last Filed: 07/18/21 12:24> Assessment and Plan: [facility] admit for acute on chronic systolic and diastolic HF from 06/26 - 07/13. Discharge summary reviewed and notes indicate he was discharged around 15 liters and discharge weight was 295lb. His discharge diuretics included Torsemide 100mg bid and Metolazone 5 mg daily. He has a cardiomems PA sensor in place. Last available reading was PAD 30, SONAL 45 done on 07/12. He presented to [facility] with the dizziness and N/V. No hypotension noted. CXR showed NAD. On exam he does have LE edema, which he states was present even upon discharge from [facility]. His diuretics have been on hold since admit yesterday. K 2.9 today and recieving replacement. Will restart his Torsemide. Watch for signs of acute HF, I+O monitoring. <KEYANNA Burdick - Last Filed: 07/18/21 12:24> (4) Current use of anticoagulant therapy: Status: Acute <KEYANNA Burdick - Last Filed: 07/18/21 12:24> Assessment and Plan: Warfarin for stroke risk reduction with afib. <KEYANNA Burdick - Last Filed: 07/18/21 12:24> Fall Risk Details Current Medications: Current Medications Acetaminophen (Acetaminophen 325 Mg Tablet) 650 mg PO Q6H PRN PRN Reason: Pain, Mild (Pain Scale 1-3) Last Admin: 07/18/21 05:05 Dose: 650 mg Documented by: Amitriptyline HCl (Amitriptyline Hcl 50 Mg Tablet) 150 mg PO BEDTIME [facility] Last Admin: 07/17/21 23:07 Dose: Not Given Documented by: Amitriptyline HCl (Amitriptyline Hcl 50 Mg Tablet) 50 mg PO DAILY [facility] Amlodipine Besylate (Amlodipine Besylate 10 Mg Tablet) 10 mg PO DAILY [facility]; Protocol Ascorbic Acid (Ascorbic Acid 500 Mg Tablet) 500 mg PO DAILY [facility] Atorvastatin Calcium (Atorvastatin Calcium 80 Mg Tablet) 80 mg PO DAILY [facility] Dextrose (Dextrose 50 % 25 Gm/50 Ml Syringe) 25 gm IVPUSH Q15M PRN; Protocol PRN Reason: per Hypoglycemia Standing Ord. Docusate Sodium (Docusate Sodium 100 Mg Capsule) 100 mg PO DAILY PRN PRN Reason: Constipation Glucose (Glucose Gel 15 Gm Gel..Gram.) 15 gm PO Q15M PRN; Protocol PRN Reason: per Hypoglycemia Standing Ord. Hydralazine HCl (Hydralazine Hcl 25 Mg Tablet) 25 mg PO TID [facility]; Protocol Last Admin: 07/17/21 23:08 Dose: 25 mg Documented by: Potassium Chloride () 10 meq in 100 mls @ 100 mls/hr IV Q1H [facility] Stop: 07/18/21 13:14 Insulin Human Lispro (Insulin Lispro 100 Unit/Ml 3 Ml Vial) 0 unit SUBCUT QIDACHS [facility]; Protocol Last Admin: 07/18/21 07:42 Dose: 2 unit Documented by: Isosorbide Mononitrate (Isosorbide Mononitrate 60 Mg Tab.Er.24h) 60 mg PO DAILY [facility]; Protocol Ondansetron HCl (Ondansetron Hcl 4 Mg/2 Ml Vial) 4 mg IVPUSH Q8H PRN PRN Reason: Nausea and Vomiting Pantoprazole Sodium (Pantoprazole Sodium 40 Mg/10 Ml Vial) 40 mg IVPUSH DAILY@0630 [facility] Last Admin: 07/18/21 06:03 Dose: 40 mg Documented by: Pharmacy Consult (Consult Rx Perform Med Rec) 1 each MISCELLANE ONCE PRN PRN Reason: Consult order Sodium Chloride (0.9 % Sodium Chloride Flush 3 Ml Syringe) 3 ml IVFLUSH QSHIFT [facility] Last Admin: 07/18/21 07:42 Dose: 3 ml Documented by: <KEYANNA Burdick - Last Filed: 07/18/21 12:24> Time Spent With Patient Time: Total time spent is greater than 50% in coordination of care (as documented) at patient's floor/unit and/or counseling patient: 26 <KEYANNA Burdick Last Filed: 07/18/21 12:24> Time with patient: 25 - 35 minutes <KEYANNA Burdick Last Filed: 07/18/21 12:24> Progress Note: Quality Stroke Does the patient have a stroke diagnosis?: No <KEYANNA Burdick Last Filed: 07/18/21 12:24> Procedures Date of Service Date of Service: 07/18/21 <KEYANNA Burdick Last Filed: 07/18/21 12:24>
[2021-07-18] MEDS: Isosorbide Mononitrate 60 MG TAB.ER.24H PO (11:14)
[2021-07-18] MEDS: Potassium Chloride ER 20 MEQ TAB.ER.PRT 40 MEQ PO (11:14)
[2021-07-18] MEDS: amLODIPine Besylate 10 MG TABLET PO (11:15)
[2021-07-18] MEDS: Atorvastatin Calcium 80 MG TABLET PO (11:15)
[2021-07-18] MEDS: Ascorbic Acid 500 MG TABLET PO (11:15)
[2021-07-18] MEDS: hydrALAZINE HCl 25 MG TABLET PO ×3 (11:16→20:40)
[2021-07-18] MEDS: Potassium Chloride/H20 10 MEQ/100 ML PIGGYBACK 100 MEQ IV ×4 (11:17→15:06)
--- NOTE | 2021-07-18 11:20 | PC.NURSE ---
call placed to pharmacy for 9AM amitriptyline
[2021-07-18 12:03] LABS: Glucose, Whole Blood 146 mg/dL (60-115)
[2021-07-18] MEDS: Metoprolol Succinate ER 25 MG TAB.ER.24H PO (12:53)
--- NOTE | 2021-07-18 13:10 | P.PNIM_ITS ---
Subjective Subjective Date of Service: 07/18/21 Interval History: C/o dizziness/vertigo No chest pain/dyspnea Review of Systems Review of Systems: Yes all other systems are reviewed and are negative Physical Exam Vital Signs: Vital Signs: Last Vital Signs Temp 97.6 F 07/18/21 03:48 Pulse 60 07/18/21 08:43 Resp 16 07/18/21 07:41 BP 132/82 07/18/21 08:43 Pulse Ox 94 07/18/21 03:48 Oxygen Flow Rate 2 07/17/21 13:33 BMI result Body Mass Index 42.0 Gen: in no acute distress HEENT: sclera anicteric, moist mucus membranes Neck: supple Lungs: clear to auscultation bilaterally Heart: irregularly irregular Abd: soft, non-tender, non-distended, obese Ext: venous stasis hyperpigmentation of legs Skin: warm/well-perfused Neuro: alert and oriented x3, no pronator drift, no motor deficit Psych: appropriate affect Objective Data Active Medications Acetaminophen (Acetaminophen 325 Mg Tablet) 650 mg PO Q6H PRN PRN Reason: Pain, Mild (Pain Scale 1-3) Last Admin: 07/18/21 05:05 Dose: 650 mg Documented by: NINOSKA Amitriptyline HCl (Amitriptyline Hcl 50 Mg Tablet) 150 mg PO BEDTIME [facility] Last Admin: 07/17/21 23:07 Dose: Not Given Documented by: PATRICIA Non-Admin Reason: Med Not Available Amitriptyline HCl (Amitriptyline Hcl 50 Mg Tablet) 50 mg PO DAILY [facility] Amlodipine Besylate (Amlodipine Besylate 10 Mg Tablet) 10 mg PO DAILY [facility]; Protocol Last Admin: 07/18/21 11:15 Dose: 10 mg Documented by: DIEGO Ascorbic Acid (Ascorbic Acid 500 Mg Tablet) 500 mg PO DAILY [facility] Last Admin: 07/18/21 11:15 Dose: 500 mg Documented by: DIEGO Atorvastatin Calcium (Atorvastatin Calcium 80 Mg Tablet) 80 mg PO DAILY [facility] Last Admin: 07/18/21 11:15 Dose: 80 mg Documented by: DIEGO Dextrose (Dextrose 50 % 25 Gm/50 Ml Syringe) 25 gm IVPUSH Q15M PRN; Protocol PRN Reason: per Hypoglycemia Standing Ord. Docusate Sodium (Docusate Sodium 100 Mg Capsule) 100 mg PO DAILY PRN PRN Reason: Constipation Glucose (Glucose Gel 15 Gm Gel..Gram.) 15 gm PO Q15M PRN; Protocol PRN Reason: per Hypoglycemia Standing Ord. Hydralazine HCl (Hydralazine Hcl 25 Mg Tablet) 25 mg PO TID [facility]; Protocol Last Admin: 07/18/21 11:16 Dose: 25 mg Documented by: DIEGO Potassium Chloride () 10 meq in 100 mls @ 100 mls/hr IV Q1H [facility] Stop: 07/18/21 13:14 Last Admin: 07/18/21 12:54 Dose: 100 mls/hr Documented by: LORE Insulin Human Lispro (Insulin Lispro 100 Unit/Ml 3 Ml Vial) 0 unit SUBCUT QIDACHS [facility]; Protocol Last Admin: 07/18/21 07:42 Dose: 2 unit Documented by: ARCHANA Isosorbide Mononitrate (Isosorbide Mononitrate 60 Mg Tab.Er.24h) 60 mg PO DAILY [facility]; Protocol Last Admin: 07/18/21 11:14 Dose: 60 mg Documented by: DIEGO Metoprolol Succinate (Metoprolol Succinate Er 25 Mg Tab.Er.24h) 25 mg PO DAILY [facility]; Protocol Last Admin: 07/18/21 12:53 Dose: 25 mg Documented by: LORE Ondansetron HCl (Ondansetron Hcl 4 Mg/2 Ml Vial) 4 mg IVPUSH Q8H PRN PRN Reason: Nausea and Vomiting Pantoprazole Sodium (Pantoprazole Sodium 40 Mg/10 Ml Vial) 40 mg IVPUSH DAILY@0630 [facility] Last Admin: 07/18/21 06:03 Dose: 40 mg Documented by: NINOSKA Pharmacy Consult (Consult Rx Perform Med Rec) 1 each MISCELLANE ONCE PRN PRN Reason: Consult order Sodium Chloride (0.9 % Sodium Chloride Flush 3 Ml Syringe) 3 ml IVFLUSH QSHIFT [facility] Last Admin: 07/18/21 07:42 Dose: 3 ml Documented by: ARCHANA Torsemide (Torsemide 20 Mg Tablet) 100 mg PO BID@0800,1500 [facility]; Protocol Labs CBC & Chem 7: 07/18/21 07:44 07/18/21 07:44 Labs: Laboratory Results - last 24 hr 07/17/21 07/17/21 07/17/21 13:48 13:48 13:48 MCV MCH MCHC RDW Plt Count MPV Immature Gran % (Auto) Neut % (Auto) Lymph % (Auto) Will % (Auto) Eos % (Auto) Baso % (Auto) Lymph # (Auto) Will # (Auto) Eos # (Auto) Baso # (Auto) Abs Immat Gran (auto) Absolute Neuts (auto) Absolute Nucleated RBC Nucleated RBC % (auto) PT INR APTT VBG pH VBG pCO2 VBG pO2 VBG HCO3 VBG O2 Saturation VBG Base Excess Anion Gap Estim Creat Clear Calc Estimated GFR POC Glucose Random Glucose Estimat Average Glucose Hemoglobin A1c % Lactic Acid Calcium Magnesium Total Bilirubin Direct Bilirubin AST ALT Alkaline Phosphatase Total Creatine Kinase Troponin I High Sens 24.8 B-Natriuretic Peptide 487 H Total Protein Albumin Triglycerides Cholesterol LDL Cholesterol, Calc HDL Cholesterol Lipase Urine Color Urine Appearance Urine pH Ur Specific [place] Urine Protein Urine Glucose (UA) Urine Ketones Urine Blood Urine Nitrite Ur Leukocyte Esterase Urine RBC Urine WBC Ur Squamous Epith Cells Urine Bacteria Digoxin Urine Opiates Screen Urine Fentanyl Screen Ur Barbiturates Screen Ur Phencyclidine Scrn Ur Amphetamines Screen U Benzodiazepines Scrn Urine Cocaine Screen U Marijuana (THC) Screen Ethyl Alcohol < 10 Acetone, Qual COVID-19 (POWER) COVID-19 Clin Com 07/17/21 07/17/21 07/17/21 13:48 13:48 13:48 MCV MCH MCHC RDW Plt Count MPV Immature Gran % (Auto) Neut % (Auto) Lymph % (Auto) Will % (Auto) Eos % (Auto) Baso % (Auto) Lymph # (Auto) Will # (Auto) Eos # (Auto) Baso # (Auto) Abs Immat Gran (auto) Absolute Neuts (auto) Absolute Nucleated RBC Nucleated RBC % (auto) PT INR APTT VBG pH VBG pCO2 VBG pO2 VBG HCO3 VBG O2 Saturation VBG Base Excess Anion Gap Estim Creat Clear Calc Estimated GFR POC Glucose Random Glucose Estimat Average Glucose 200 Hemoglobin A1c % 8.6 Lactic Acid Calcium Magnesium Total Bilirubin Direct Bilirubin AST ALT Alkaline Phosphatase Total Creatine Kinase Troponin I High Sens B-Natriuretic Peptide Total Protein Albumin Triglycerides Cholesterol LDL Cholesterol, Calc HDL Cholesterol Lipase Urine Color Urine Appearance Urine pH Ur Specific [place] Urine Protein Urine Glucose (UA) Urine Ketones Urine Blood Urine Nitrite Ur Leukocyte Esterase Urine RBC Urine WBC Ur Squamous Epith Cells Urine Bacteria Digoxin 0.5 L Urine Opiates Screen Urine Fentanyl Screen Ur Barbiturates Screen Ur Phencyclidine Scrn Ur Amphetamines Screen U Benzodiazepines Scrn Urine Cocaine Screen U Marijuana (THC) Screen Ethyl Alcohol Acetone, Qual Negative COVID-19 (POWER) COVID-19 Clin Com 07/17/21 07/17/21 07/17/21 13:49 13:49 13:49 MCV 85.7 MCH 28.6 MCHC 33.3 RDW 16.3 H Plt Count 362 MPV 10.1 Immature Gran % (Auto) 0.3 Neut % (Auto) 84.1 H Lymph % (Auto) 6.7 L Will % (Auto) 7.9 Eos % (Auto) 0.7 Baso % (Auto) 0.3 Lymph # (Auto) 0.9 L Will # (Auto) 1.1 Eos # (Auto) 0.1 Baso # (Auto) 0.0 Abs Immat Gran (auto) 0.04 H Absolute Neuts (auto) 11.2 H Absolute Nucleated RBC 0.000 Nucleated RBC % (auto) 0.0 PT 32.6 H INR 2.8 H APTT 51.2 H VBG pH VBG pCO2 VBG pO2 VBG HCO3 VBG O2 Saturation VBG Base Excess Anion Gap 18 Estim Creat Clear Calc 56.4 Estimated GFR 35 POC Glucose Random Glucose 410 H* Estimat Average Glucose Hemoglobin A1c % Lactic Acid Calcium 8.6 Magnesium 2.7 H Total Bilirubin 2.2 H Direct Bilirubin 1.1 H AST 40 H D ALT 30 Alkaline Phosphatase 185 H Total Creatine Kinase 95 Troponin I High Sens B-Natriuretic Peptide Total Protein 6.7 Albumin 2.7 L D Triglycerides Cholesterol LDL Cholesterol, Calc HDL Cholesterol Lipase 50 Urine Color Urine Appearance Urine pH Ur Specific [place] Urine Protein Urine Glucose (UA) Urine Ketones Urine Blood Urine Nitrite Ur Leukocyte Esterase Urine RBC Urine WBC Ur Squamous Epith Cells Urine Bacteria Digoxin Urine Opiates Screen Urine Fentanyl Screen Ur Barbiturates Screen Ur Phencyclidine Scrn Ur Amphetamines Screen U Benzodiazepines Scrn Urine Cocaine Screen U Marijuana (THC) Screen Ethyl Alcohol Acetone, Qual COVID-19 (POWER) COVID-19 [facility]GRIMAPS Com 07/17/21 07/17/21 07/17/21 13:49 13:49 13:54 MCV MCH MCHC RDW Plt Count MPV Immature Gran % (Auto) Neut % (Auto) Lymph % (Auto) Will % (Auto) Eos % (Auto) Baso % (Auto) Lymph # (Auto) Will # (Auto) Eos # (Auto) Baso # (Auto) Abs Immat Gran (auto) Absolute Neuts (auto) Absolute Nucleated RBC Nucleated RBC % (auto) PT INR APTT VBG pH 7.50 H VBG pCO2 42 VBG pO2 63 VBG HCO3 33 H VBG O2 Saturation 89.0 VBG Base Excess 9.3 Anion Gap Estim Creat Clear Calc Estimated GFR POC Glucose Random Glucose Estimat Average Glucose Hemoglobin A1c % Lactic Acid 1.9 Calcium Magnesium Total Bilirubin Direct Bilirubin AST ALT Alkaline Phosphatase Total Creatine Kinase Troponin I High Sens B-Natriuretic Peptide Total Protein Albumin Triglycerides Cholesterol LDL Cholesterol, Calc HDL Cholesterol Lipase Urine Color Urine Appearance Urine pH Ur Specific [place] Urine Protein Urine Glucose (UA) Urine Ketones Urine Blood Urine Nitrite Ur Leukocyte Esterase Urine RBC Urine WBC Ur Squamous Epith Cells Urine Bacteria Digoxin Urine Opiates Screen Urine Fentanyl Screen Ur Barbiturates Screen Ur Phencyclidine Scrn Ur Amphetamines Screen U Benzodiazepines Scrn Urine Cocaine Screen U Marijuana (THC) Screen Ethyl Alcohol Acetone, Qual COVID-19 (POWER) Negative COVID-19 Clin Com See Note 07/17/21 07/17/21 07/17/21 16:19 16:44 19:48 MCV MCH MCHC RDW Plt Count MPV Immature Gran % (Auto) Neut % (Auto) Lymph % (Auto) Will % (Auto) Eos % (Auto) Baso % (Auto) Lymph # (Auto) Will # (Auto) Eos # (Auto) Baso # (Auto) Abs Immat Gran (auto) Absolute Neuts (auto) Absolute Nucleated RBC Nucleated RBC % (auto) PT INR APTT VBG pH VBG pCO2 VBG pO2 VBG HCO3 VBG O2 Saturation VBG Base Excess Anion Gap Estim Creat Clear Calc Estimated GFR POC Glucose 314 H 274 H Random Glucose Estimat Average Glucose Hemoglobin A1c % Lactic Acid Calcium Magnesium Total Bilirubin Direct Bilirubin AST ALT Alkaline Phosphatase Total Creatine Kinase Troponin I High Sens 27.2 B-Natriuretic Peptide Total Protein Albumin Triglycerides Cholesterol LDL Cholesterol, Calc HDL Cholesterol Lipase Urine Color Urine Appearance Urine pH Ur Specific [place] Urine Protein Urine Glucose (UA) Urine Ketones Urine Blood Urine Nitrite Ur Leukocyte Esterase Urine RBC Urine WBC Ur Squamous Epith Cells Urine Bacteria Digoxin Urine Opiates Screen Urine Fentanyl Screen Ur Barbiturates Screen Ur Phencyclidine Scrn Ur Amphetamines Screen U Benzodiazepines Scrn Urine Cocaine Screen U Marijuana (THC) Screen Ethyl Alcohol Acetone, Qual COVID-19 (POWER) COVID-19 [employer] 07/17/21 07/18/21 07/18/21 23:11 03:14 03:14 MCV MCH MCHC RDW Plt Count MPV Immature Gran % (Auto) Neut % (Auto) Lymph % (Auto) Will % (Auto) Eos % (Auto) Baso % (Auto) Lymph # (Auto) Will # (Auto) Eos # (Auto) Baso # (Auto) Abs Immat Gran (auto) Absolute Neuts (auto) Absolute Nucleated RBC Nucleated RBC % (auto) PT INR APTT VBG pH VBG pCO2 VBG pO2 VBG HCO3 VBG O2 Saturation VBG Base Excess Anion Gap Estim Creat Clear Calc Estimated GFR POC Glucose 206 H Random Glucose Estimat Average Glucose Hemoglobin A1c % Lactic Acid Calcium Magnesium Total Bilirubin Direct Bilirubin AST ALT Alkaline Phosphatase Total Creatine Kinase Troponin I High Sens B-Natriuretic Peptide Total Protein Albumin Triglycerides Cholesterol LDL Cholesterol, Calc HDL Cholesterol Lipase Urine Color STRAW Urine Appearance HAZY Urine pH 5.5 Ur Specific [place] 1.020 Urine Protein TRACE Urine Glucose (UA) NEG Urine Ketones NEG Urine Blood 3+ H Urine Nitrite NEG Ur Leukocyte Esterase NEG Urine RBC 76-150 H Urine WBC 1-4 Ur Squamous Epith Cells 1+ Urine Bacteria 1+ Digoxin Urine Opiates Screen Not Detected Urine Fentanyl Screen Not Detected Ur Barbiturates Screen Not Detected Ur Phencyclidine Scrn Not Detected Ur Amphetamines Screen Not Detected U Benzodiazepines Scrn Not Detected Urine Cocaine Screen Not Detected U Marijuana (THC) Screen Not Detected Ethyl Alcohol Acetone, Qual COVID-19 (POWER) COVID-19 [employer] 07/18/21 07/18/21 07/18/21 07:15 07:44 07:44 MCV MCH MCHC RDW Plt Count MPV Immature Gran % (Auto) Neut % (Auto) Lymph % (Auto) Will % (Auto) Eos % (Auto) Baso % (Auto) Lymph # (Auto) Will # (Auto) Eos # (Auto) Baso # (Auto) Abs Immat Gran (auto) Absolute Neuts (auto) Absolute Nucleated RBC Nucleated RBC % (auto) PT 36.4 H INR 3.1 H APTT VBG pH VBG pCO2 VBG pO2 VBG HCO3 VBG O2 Saturation VBG Base Excess Anion Gap 11 L Estim Creat Clear Calc 58.4 Estimated GFR 36 POC Glucose 116 H Random Glucose 127 H D Estimat Average Glucose Hemoglobin A1c % Lactic Acid Calcium 8.4 Magnesium 2.7 H Total Bilirubin 2.0 H Direct Bilirubin 1.2 H AST 32 ALT 26 Alkaline Phosphatase 158 H Total Creatine Kinase Troponin I High Sens B-Natriuretic Peptide Total Protein 5.9 L Albumin 2.5 L Triglycerides 69 Cholesterol 114 LDL Cholesterol, Calc 72 HDL Cholesterol 29 Lipase Urine Color Urine Appearance Urine pH Ur Specific [place] Urine Protein Urine Glucose (UA) Urine Ketones Urine Blood Urine Nitrite Ur Leukocyte Esterase Urine RBC Urine WBC Ur Squamous Epith Cells Urine Bacteria Digoxin Urine Opiates Screen Urine Fentanyl Screen Ur Barbiturates Screen Ur Phencyclidine Scrn Ur Amphetamines Screen U Benzodiazepines Scrn Urine Cocaine Screen U Marijuana (THC) Screen Ethyl Alcohol Acetone, Qual COVID-19 (POWER) COVID-19 Clin Com 07/18/21 07/18/21 07:44 12:00 MCV 84.7 MCH 28.5 MCHC 33.7 RDW 16.5 H Plt Count 301 MPV 9.6 Immature Gran % (Auto) 0.4 Neut % (Auto) 83.6 H Lymph % (Auto) 6.4 L Will % (Auto) 8.3 Eos % (Auto) 1.0 Baso % (Auto) 0.3 Lymph # (Auto) 0.9 L Will # (Auto) 1.2 Eos # (Auto) 0.2 Baso # (Auto) 0.1 Abs Immat Gran (auto) 0.06 H Absolute Neuts (auto) 12.0 H Absolute Nucleated RBC 0.000 Nucleated RBC % (auto) 0.0 PT INR APTT VBG pH VBG pCO2 VBG pO2 VBG HCO3 VBG O2 Saturation VBG Base Excess Anion Gap Estim Creat Clear Calc Estimated GFR POC Glucose 146 H Random Glucose Estimat Average Glucose Hemoglobin A1c % Lactic Acid Calcium Magnesium Total Bilirubin Direct Bilirubin AST ALT Alkaline Phosphatase Total Creatine Kinase Troponin I High Sens B-Natriuretic Peptide Total Protein Albumin Triglycerides Cholesterol LDL Cholesterol, Calc HDL Cholesterol Lipase Urine Color Urine Appearance Urine pH Ur Specific [place] Urine Protein Urine Glucose (UA) Urine Ketones Urine Blood Urine Nitrite Ur Leukocyte Esterase Urine RBC Urine WBC Ur Squamous Epith Cells Urine Bacteria Digoxin Urine Opiates Screen Urine Fentanyl Screen Ur Barbiturates Screen Ur Phencyclidine Scrn Ur Amphetamines Screen U Benzodiazepines Scrn Urine Cocaine Screen U Marijuana (THC) Screen Ethyl Alcohol Acetone, Qual COVID-19 (POWER) COVID-19 Clin Com Assessment and Plan (1) Chronic combined systolic and diastolic congestive heart failure: Status: Acute (2) Atrial fibrillation: Status: Acute (3) Dizziness: Status: Acute Assessment and Plan: hospital d#2 with HTN, HFpEF with cardioMEMS device in place, HLD, CAD, DM2, DARLENE, severe pHTN, AF on warfarin, CKD3-4, hx CVA, polycythemic vera, chronic hypoxic respiratory failure on 2L recent admission to [facility] for CHF exacerbation presenting with nausea/vomiting, dizziness # dizziness/vertigo - MRI to r/o posterior circulation CVA, Neurology consult, continue statin # hypoK - replete IV+PO, recheck in am # nausea/vomiting with 1 episode blood-streaked vomitus - ?Brinda-Reyes tear - IV PPI - follow H+H - hold warfarin # hematuria - likely due to traumatic Camilo placement; Urology consult pending; hold warfarin # permanent AF - resume metoprolol; d/c digoxin due to bradycardia - Cardiology following - hold warfarin for ?GI/ bleed - monitor INR # chronic HFpEF - restart torsemide, hold metolazone - CardioMEMS interrogation pendign # leukocytosis - reactive from vomiting? no sign of infection # DM2 with hypyerglycemia, A1c 8.6 - correction-dose lispro. on U-500 + Trulicity at home. in-house will need basal insulin once taking more POs consistently # CAD - episode of chest pain resolved, troponins flat - continue statin, metoprolol, Imdur # CKD4 - SCr stable, avoid nephrotoxins # HTN - metoprolol, hydralazine, amlodipine # chronic hypoxic respiratory failure - 2L O2 via nasal cannula # morbid obesity - outpt bariatrics evaluation can be considered # DARLENE - CPAP at night # VTE ppx - SCDs # dispo - plan eventual home with PT Quality Stroke Does the patient have a stroke diagnosis?: No VTE Prior VTE?: No VTE Risk Level:: Medical - moderate - high VTE Device Contraindication: N/A - Device Ordered VTE Drug Contraindication: Treatment Not Indicated
--- NOTE | 2021-07-18 13:23 | MHC.CM.PN ---
PT REPORTS HE LIVES IN AN ADULT [facility] CARE SETTING WITH A AND WHO CARE FOR HIM. HE REPORTS HE HAS AN ELECTRIC WHEELCHAIR, WHEELED WALKER AND HOME MODIFICATIONS. HE REPORTS HIS CAREGIVERS TRANSPORT HIM TO ALL APPOINTMENTS. PT SEES [facility] FOR PRIMARY CARE HE DOES NOT HAVE A HCP AND REPORTS HE IS NOT READY TO COMPLETE ONE AT THIS TIME PT REPORTS HE IS FULLY VACCINATED AGAINST COVID-19 INCLUDING A BOOSTER WITH PFIZER. IMM DELIVERED, ORIGINAL GIVEN TO PT, COPY SENT TO [facility] CURRENT DISCHARGE PLAN IS HOME WITH RESUMPTION OF FOSTER CARE CAREGIVERS TO TRANSPORT
--- NOTE | 2021-07-18 13:30 | PC.NURSE ---
transport here to take pt to MRI without potassium running ok-ed by Dr. valdivia
[2021-07-18] MEDS: LORazepam 2 MG/ML VIAL 1 MG IVPUSH (13:37)
--- NOTE | 2021-07-18 14:30 | PC.NURSE ---
pt back to floor, with administer 0900 amitriptyline brought up by pharmacy and restart pt potassium
[2021-07-18] MEDS: Amitriptyline HCl 50 MG TABLET PO (14:38)
[2021-07-18] MEDS: Bismuth Subsalicylate Liquid 524 MG/30 ML ORAL.SUSP PO (15:06)
--- NOTE | 2021-07-18 15:21 | PC.NURSE ---
pt incontinent of stool - changed over with new linens
--- NOTE | 2021-07-18 16:09 | PC.NURSE ---
call to pharmacy for torsemide 100mg - willl bring
[2021-07-18] MEDS: Torsemide 20 MG TABLET 100 MG PO (17:42)
[2021-07-18 17:51] LABS: Glucose, Whole Blood 167 mg/dL (60-115)
--- NOTE | 2021-07-18 18:40 | PC.NURSE ---
at approx 1758 pt had several beats of v-tach and his SaO2 dropped to 73% while on 4L NC - dr valdivia informed and came down to check on pt, lab orders placed and phlebotomy here to draw blood. pt with c/o abdominal discomfort, maalox was ordered.
[2021-07-18 18:51] LABS: Magnesium 2.8 mg/dL (1.6-2.6); Potassium 3.5 mmol/L (3.3-5.1)
--- NOTE | 2021-07-18 19:13 | PC.NURSE ---
Addendum entered by Ashley Amado RN 07/18/21 19:17: late entry, Dr. Hough notified at 1530 Original Note: notified Dr. Hough of continued bleeding from urethra, blood in urine and small clots following removal of mcknight this AM. informed of urology consult that was placed.
[2021-07-18] MEDS: Magnesium Hydrox/Alum Hydrox 30 ML ORAL.SUSP PO (19:21)
[2021-07-18] MEDS: Amitriptyline HCl 50 MG TABLET 150 MG PO (20:40)
[2021-07-18 21:39] LABS: Glucose, Whole Blood 192 mg/dL (60-115)
[2021-07-19] VITALS (10 sets, daily range): BP systolic 110–142; BP diastolic 59–78; PULSE 55–68; RESP 8–20; O2SAT 93–100
--- NOTE | 2021-07-19 | ECG_ITS ---
Test Reason : CHEST PAIN Blood Pressure : / mmHG Vent. Rate : 064 BPM Atrial Rate : 000 BPM P-R Int : 000 ms QRS Dur : 104 ms QT Int : 440 ms P-R-T Axes : 000 -39 145 degrees QTc Int : 453 ms Atrial fibrillation with premature ventricular or aberrantly conducted complexes Left axis deviation Septal infarct (cited on or before 17-AUG-2014) Inferior infarct (cited on or before 25-JUL-2014) ST & T wave abnormality, consider lateral ischemia Abnormal ECG When compared with ECG of 17-JUL-2021 13:30, No significant changes seen Referred By: Angelina Botello Electronically Signed By:Coleman Burnett
[2021-07-19] MEDS: Magnesium Hydrox/Alum Hydrox 30 ML ORAL.SUSP PO (00:23)
[2021-07-19] MEDS: HYDROmorphone HCl 1 MG/ML SYRINGE 0.5 MG IVPUSH ×3 (03:08→20:47)
[2021-07-19] MEDS: Pantoprazole Sodium 40 MG/10 ML VIAL IVPUSH ×2 (06:01→16:11)
[2021-07-19] MEDS: 0.9 % Sodium Chloride Flush 3 ML SYRINGE IVFLUSH ×3 (06:01→16:14)
[2021-07-19] MEDS: ondansetron HCL 4 MG/2 ML VIAL IVPUSH (06:16)
[2021-07-19 07:06] LABS: Glucose, Whole Blood 157 mg/dL (60-115)
[2021-07-19 07:25] LABS: Hematocrit 38.8 % (42.0-52.0); Hemoglobin 12.7 g/dl (14.0-18.0)
[2021-07-19 07:27] LABS: INTERNATIONAL NORM RATIO 2.8 (0.9-1.1); Prothrombin Time 32.9 SEC (9.9-13.0)
--- NOTE | 2021-07-19 07:53 | PC.NURSE ---
Assisted pt oob to bedside commode and back to bed. blood noted in commode and on pt ignacio area. Pt cleaned and changed, RN aware
[2021-07-19 07:55] LABS: Anion Gap 15 (12-20); Blood Urea Nitrogen 94 mg/dL (9-16); Calcium 8.5 mg/dL (8.4-10.2); Carbon Dioxide 31 mmol/L (22-29); Chloride 96 mmol/L (96-108); Creatinine Clr Calc Pharmacy 54.7; Estimated Glomerular Filt Rate 33; Glucose Random 170 mg/dL (60-115); Magnesium 2.8 mg/dL (1.6-2.6); Potassium 3.3 mmol/L (3.3-5.1); Sodium 139 mmol/L (135-145)
[2021-07-19 09:22] LABS: B Type Natriuretic Peptide 307 pg/mL (<100)
--- NOTE | 2021-07-19 09:48 | PC.NURSE ---
Patient reports abd pain. Not able to void,bladder scanned for over 1000 ml.FC 16 Fr plainserted with no problem. Urine is bloody, draining freely, no clots.
[2021-07-19] MEDS: Atorvastatin Calcium 80 MG TABLET PO (10:26)
[2021-07-19] MEDS: Amitriptyline HCl 50 MG TABLET PO (10:27)
[2021-07-19] MEDS: Ascorbic Acid 500 MG TABLET PO (10:27)
[2021-07-19] MEDS: Isosorbide Mononitrate 60 MG TAB.ER.24H PO (10:27)
[2021-07-19] MEDS: Metoprolol Succinate ER 25 MG TAB.ER.24H PO (10:27)
[2021-07-19] MEDS: hydrALAZINE HCl 25 MG TABLET PO ×3 (10:28→20:44)
[2021-07-19] MEDS: amLODIPine Besylate 10 MG TABLET PO (10:28)
--- NOTE | 2021-07-19 11:39 | P.PNCA_ITS ---
Subjective Subjective Date of Service: 07/19/21 <KEYANNA Burdick - Last Filed: 07/19/21 12:37> 07/20/21 <Coleman Burnett MD - Last Filed: 07/20/21 11:01> Principal diagnosis: Dizziness, CVA, afib, chronic diastolic HF <KEYANNA Burdick - Last Filed: 07/19/21 12:37> Interval history: Cardiology follow up for afib, diastolic HF. Seen at 0930. Today he is observed sleeping, snoring. Easily arousable with verbal stimuli but does fall back asleep easily. Oriented and follows commands with all 4 extremeties. He denies having visual disturbances when asked to open his eyes. Reports ongoing dizziness, headache, room spinning . These symptoms are no different today than yesterday. Denies having trouble breathing, chest pains, palpitation. <KEYANNA Burdick - Last Filed: 07/19/21 12:37> Review of Systems Review of Systems as above <KEYANNA Burdick - Last Filed: 07/19/21 12:37> Yes all other systems are reviewed and are negative <KEYANNA Burdick - Last Filed: 07/19/21 12:37> Physical Exam Vital Signs: Last Vital Signs Temp 97.6 F 07/18/21 03:48 Pulse 65 07/19/21 11:04 Resp 20 07/19/21 09:46 BP 142/78 H 07/19/21 11:04 Pulse Ox 93 07/19/21 11:04 Oxygen Flow Rate 2 07/17/21 13:33 BMI result Body Mass Index 42.0 <KEYANNA Burdick - Last Filed: 07/19/21 12:37> Const Other: sleepy, easily arousable - falls asleep again easy. Morbidly obese <KEYANNA Burdick - Last Filed: 07/19/21 12:37> General: cooperative, no acute distress and lethargic <KEYANNA Burdick - Last Filed: 07/19/21 12:37> Orientation/consciousness: patient oriented x3 and lethargic <KEYANNA Burdick - Last Filed: 07/19/21 12:37> Neck Neck: Yes JVD <Hilda Conway [facility] - Last Filed: 07/19/21 12:37> Resp Other: no distress. <Hilda ConwaySOFÍA - Last Filed: 07/19/21 12:37> Effort & Inspection: normal respiratory effort and not labored <Hilda ConwaySOFÍA - Last Filed: 07/19/21 12:37> Auscultation: clear to auscultation bilaterally (Lungs dim without clear rales), no rhonchi and no wheezes <Hilda Conway [facility] - Last Filed: 07/19/21 12:37> Cardio Jugular venous distension: JVD present <Hilda ConwaySOFÍA - Last Filed: 07/19/21 12:37> Rate: regular rate <Hilda Conway [facility] - Last Filed: 07/19/21 12:37> Rhythm: abnormal rhythm irregularly irregular <Hilda Conway [facility] - Last Filed: 07/19/21 12:37> Heart sounds: S2 normal heart sound present and Murmur heart sound present (systolic 2/6 left upper sternal border) <Hilda Conway [facility] - Last Filed: 07/19/21 12:37> Peripheral pulses: Peripheral pulses 2+ throughout <Hilda Conway [facility] - Last Filed: 07/19/21 12:37> GI Other: obese, soft, no facial grimace to palpation <Hilda ConwaySOFÍA - Last Filed: 07/19/21 12:37> Inspection: Yes normal to inspection <Hilda Conway [facility] - Last Filed: 07/19/21 12:37> Skin Other: venous stasis changes to lower legs <Hilda GambleSOFÍA page - Last Filed: 07/19/21 12:37> Neuro General: patient oriented x3 <Hilda GambleSOFÍA page - Last Filed: 07/19/21 12:37> Extrem Other: Pitting edema to lower extremities, up to upper thighs <Hilda Martinez SOFÍA [facility] - Last Filed: 07/19/21 12:37> Objective Labs and Meds Result diagrams: : 07/20/21 06:31 07/20/21 06:31 <KEYANNA Burdick - Last Filed: 07/19/21 12:37> Lab results: Laboratory Results - last 24 hr 07/18/21 07/18/21 07/18/21 12:00 17:48 18:17 Hgb Hct PT INR Sodium Potassium 3.5 D Chloride Carbon Dioxide Anion Gap BUN Creatinine Estim Creat Clear Calc Estimated GFR POC Glucose 146 H 167 H Random Glucose Calcium Magnesium 2.8 H B-Natriuretic Peptide 07/18/21 07/19/21 07/19/21 20:58 05:57 06:56 Hgb Hct PT 32.9 H INR 2.8 H Sodium Potassium Chloride Carbon Dioxide Anion Gap BUN Creatinine Estim Creat Clear Calc Estimated GFR POC Glucose 192 H 157 H Random Glucose Calcium Magnesium B-Natriuretic Peptide 07/19/21 07/19/21 07/19/21 06:56 06:56 06:56 Hgb 12.7 L Hct 38.8 L PT INR Sodium 139 Potassium 3.3 Chloride 96 Carbon Dioxide 31 H Anion Gap 15 BUN 94 H Creatinine 2.05 H Estim Creat Clear Calc 54.7 Estimated GFR 33 POC Glucose Random Glucose 170 H Calcium 8.5 Magnesium 2.8 H B-Natriuretic Peptide 307 H <KEYANNA Burdick - Last Filed: 07/19/21 12:37> Imaging Radiologist's impression: Impressions Brain MRI 07/18/21 14:23 IMPRESSION: Small focus of acute infarction within the right verna reflecting a 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 No evidence of large infarct or hemorrhage. Chronic infarct noted within the left occipital lobe within the [employer] vascular territory. <KEYANNA Burdick - Last Filed: 07/19/21 12:37> Progress Note: A&P Assessment and plan (1) CVA (cerebral vascular accident): Status: Acute <KEYANNA Burdick Last Filed: 07/19/21 12:37> Assessment and Plan: Admit with dizziness, headache, N/V. Vertigo type symptoms, which d id not respond to meclizine. Initial concern for bradycardia as a cause, however no significant bradycardia seen. CT of head showed no acute findings. Had MRI of brain yesterday showing small focus of acute infarct within the verna, chronic left occipital infarct. Hospitalist has consulted neurology. Pt more lethargic during my exam today and reports ongoing symptoms of dizziness, spinning, headache, nausea. <KEYANNA Burdick - Last Filed: 07/19/21 12:37> (2) Dizziness: Status: Acute <KEYANNA Burdick - Last Filed: 07/19/21 12:37> (3) Acute on chronic diastolic HF (heart failure): Status: Acute <KEYANNA Burdick - Last Filed: 07/19/21 12:37> Assessment and Plan: [facility] admit for acute on chronic systolic and diastolic HF from 06/26 - 07/13. Discharge summary reviewed and notes indicate he was discharged around 15 liters and discharge weight was 295lb. His discharge diuretics included Torsemide 100mg bid and Metolazone 5 mg daily. Echo done at [facility] on 12/05/20 shows EF 50%, no regional WMA, mild , mod pulm HTN. He has a cardiomems PA sensor in place and [facility]. Cardiomems reading done 07/12/21 reported as PAD 30, SONAL 45. He presented to [facility] with symptoms as above. CXR showed NAD. On exam he does have LE edema, which he states was present even upon discharge from [facility]. He has visable JVD. His diuretics had been initially held then Torsemide restarted yesterday. Able to obtain cardiomems reading today: PAD 45, SONAL 64. Will change Torsemide to Lasix 80mg IV bid. Will give Metolazone 5mg today. Hospitalist asked to replace K and monitor lytes. Strict I+O monitoring. O2 supplement as needed for sat > 90%. <KEYANNA Burdick - Last Filed: 07/19/21 12:37> (4) Atrial fibrillation: Status: Acute <KEYANNA Burdick - Last Filed: 07/19/21 12:37> Assessment and Plan: Hx of chronic afib. Rates currently controlled. Home Dig placed on hold due to CKD. Continues on Metoprolol for heart rate control. On Warfarin for anticoagulation. INR goal 2-3. INR 2.8 today. Has hematuria from mcknight insert. Warfarin on hold at present. Ongoing tele monitoring.? <KEYANNA Burdick - Last Filed: 07/19/21 12:37> (5) Current use of anticoagulant therapy: Status: Acute <KEYANNA Burdick - Last Filed: 07/19/21 12:37> Assessment and Plan: Patient seen and examined at bedside on 07/19/2021. Clinically volume overloaded. CardioMEMS readings were also significantly elevated and his PA pressures were 92/45 with a mean of 64. He was off diuretics for few days. I think we should resume IV diuretics along with metolazone. For the stroke I thing aspirin should be stopped and he should be started on Plavix. Thank you for allowing me to participate in the care of your patient. Please feel free to contact me if you have any questions. <Coleman Burnett MD - Last Filed: 07/20/21 11:01> Fall Risk Details Current Medications: Current Medications Acetaminophen (Acetaminophen 325 Mg Tablet) 650 mg PO Q6H PRN PRN Reason: Pain, Mild (Pain Scale 1-3) Last Admin: 07/18/21 05:05 Dose: 650 mg Documented by: Al Hydroxide/Mg Hydroxide (Magnesium Hydrox/Alum Hydrox 30 Ml Oral.Susp) 30 ml PO Q4H PRN PRN Reason: heartbirun Last Admin: 07/19/21 00:23 Dose: 30 ml Documented by: Amitriptyline HCl (Amitriptyline Hcl 50 Mg Tablet) 150 mg PO BEDTIME [facility] Last Admin: 07/18/21 20:40 Dose: 150 mg Documented by: Amitriptyline HCl (Amitriptyline Hcl 50 Mg Tablet) 50 mg PO DAILY [facility] Last Admin: 07/19/21 10:27 Dose: 50 mg Documented by: Amlodipine Besylate (Amlodipine Besylate 10 Mg Tablet) 10 mg PO DAILY [facility]; Protocol Last Admin: 07/19/21 10:28 Dose: 10 mg Documented by: Ascorbic Acid (Ascorbic Acid 500 Mg Tablet) 500 mg PO DAILY [facility] Last Admin: 07/19/21 10:27 Dose: 500 mg Documented by: Atorvastatin Calcium (Atorvastatin Calcium 80 Mg Tablet) 80 mg PO DAILY [facility] Last Admin: 07/19/21 10:26 Dose: 80 mg Documented by: Bismuth Subsalicylate (Bismuth Subsalicylate Liquid 524 Mg/30 Ml Oral.Susp) 524 mg PO QID PRN PRN Reason: Indigestion Last Admin: 07/18/21 15:06 Dose: 524 mg Documented by: Dextrose (Dextrose 50 % 25 Gm/50 Ml Syringe) 25 gm IVPUSH Q15M PRN; Protocol PRN Reason: per Hypoglycemia Standing Ord. Docusate Sodium (Docusate Sodium 100 Mg Capsule) 100 mg PO DAILY PRN PRN Reason: Constipation Furosemide (Furosemide 100 Mg/10 Ml Vial) 80 mg IVPUSH BID@0900,1800 [facility]; Protocol Glucose (Glucose Gel 15 Gm Gel..Gram.) 15 gm PO Q15M PRN; Protocol PRN Reason: per Hypoglycemia Standing Ord. Hydralazine HCl (Hydralazine Hcl 25 Mg Tablet) 25 mg PO TID [facility]; Protocol Last Admin: 07/19/21 10:28 Dose: 25 mg Documented by: Hydromorphone HCl (Hydromorphone Hcl 1 Mg/Ml Syringe) 0.5 mg IVPUSH Q4H PRN; Protocol PRN Reason: Pain, Severe (Pain Scale 7-10) Last Admin: 07/19/21 08:01 Dose: 0.5 mg Documented by: Insulin Human Lispro (Insulin Lispro 100 Unit/Ml 3 Ml Vial) 0 unit SUBCUT QIDACHS [facility]; Protocol Last Admin: 07/19/21 08:33 Dose: Not Given Documented by: Isosorbide Mononitrate (Isosorbide Mononitrate 60 Mg Tab.Er.24h) 60 mg PO DAILY [facility]; Protocol Last Admin: 07/19/21 10:27 Dose: 60 mg Documented by: Metoprolol Succinate (Metoprolol Succinate Er 25 Mg Tab.Er.24h) 25 mg PO DAILY [facility]; Protocol Last Admin: 07/19/21 10:27 Dose: 25 mg Documented by: Ondansetron HCl (Ondansetron Hcl 4 Mg/2 Ml Vial) 4 mg IVPUSH Q8H PRN PRN Reason: Nausea and Vomiting Last Admin: 07/19/21 06:16 Dose: 4 mg Documented by: Pantoprazole Sodium (Pantoprazole Sodium 40 Mg/10 Ml Vial) 40 mg IVPUSH BID@0630,1630 [facility] Last Admin: 07/19/21 06:01 Dose: 40 mg Documented by: Pharmacy Consult (Consult Rx Perform Med Rec) 1 each MISCELLANE ONCE PRN PRN Reason: Consult order Sodium Chloride (0.9 % Sodium Chloride Flush 3 Ml Syringe) 3 ml IVFLUSH QSHIFT [facility] Last Admin: 07/19/21 10:26 Dose: 3 ml Documented by: <KEYANNA Burdick - Last Filed: 07/19/21 12:37> Time Spent With Patient Time: Total time spent is greater than 50% in coordination of care (as documented) at patient's floor/unit and/or counseling patient: 26 <KEYANNA Burdick - Last Filed: 07/19/21 12:37> Time with patient: 25 - 35 minutes <KEYANNA Burdick - Last Filed: 07/19/21 12:37> Progress Note: Quality Stroke Does the patient have a stroke diagnosis?: No <KEYANNA Burdick - Last Filed: 07/19/21 12:37> Procedures Date of Service Date of Service: 07/19/21 <KEYANNA Burdick - Last Filed: 07/19/21 12:37>
[2021-07-19 12:21] LABS: Glucose, Whole Blood 161 mg/dL (60-115)
[2021-07-19] MEDS: Insulin Lispro 100 UNIT/ML 3 ML VIAL SUBCUT ×3 (13:15→21:55)
--- NOTE | 2021-07-19 13:44 | P.PNIM_ITS ---
Subjective Subjective Date of Service: 07/19/21 Interval History: Suprapubic discomfort. Camilo placed and large amount of urine returned; discomfort resolved. Still dizzy/vertiginous. Starting to have more LE swelling. Feels tired. Review of Systems Review of Systems: Yes all other systems are reviewed and are negative Physical Exam Vital Signs: Vital Signs: Last Vital Signs Temp 97.6 F 07/18/21 03:48 Pulse 61 07/19/21 12:00 Resp 20 07/19/21 12:00 BP 116/62 07/19/21 12:00 Pulse Ox 97 07/19/21 12:00 Oxygen Flow Rate 2 07/17/21 13:33 BMI result Body Mass Index 42.0 Gen: in no acute distress HEENT: sclera anicteric, moist mucus membranes Neck: supple Lungs: diminished Heart: irregularly irregular Abd: soft, non-tender, non-distended, obese Ext: venous stasis hyperpigmentation of legs, pitting edema of legs to thighs bilaterally Skin: warm/well-perfused Neuro: alert and oriented x3, no pronator drift, no motor deficit Psych: appropriate affect Objective Data Active Medications Acetaminophen (Acetaminophen 325 Mg Tablet) 650 mg PO Q6H PRN PRN Reason: Pain, Mild (Pain Scale 1-3) Last Admin: 07/18/21 05:05 Dose: 650 mg Documented by: NNIOSKA Al Hydroxide/Mg Hydroxide (Magnesium Hydrox/Alum Hydrox 30 Ml Oral.Susp) 30 ml PO Q4H PRN PRN Reason: heartbirun Last Admin: 07/19/21 00:23 Dose: 30 ml Documented by: GIL Amitriptyline HCl (Amitriptyline Hcl 50 Mg Tablet) 150 mg PO BEDTIME [facility] Last Admin: 07/18/21 20:40 Dose: 150 mg Documented by: LORE Amitriptyline HCl (Amitriptyline Hcl 50 Mg Tablet) 50 mg PO DAILY [facility] Last Admin: 07/19/21 10:27 Dose: 50 mg Documented by: BILL Amlodipine Besylate (Amlodipine Besylate 10 Mg Tablet) 10 mg PO DAILY [facility]; Protocol Last Admin: 07/19/21 10:28 Dose: 10 mg Documented by: BILL Ascorbic Acid (Ascorbic Acid 500 Mg Tablet) 500 mg PO DAILY [facility] Last Admin: 07/19/21 10:27 Dose: 500 mg Documented by: BILL Atorvastatin Calcium (Atorvastatin Calcium 80 Mg Tablet) 80 mg PO DAILY [facility] Last Admin: 07/19/21 10:26 Dose: 80 mg Documented by: BILL Bismuth Subsalicylate (Bismuth Subsalicylate Liquid 524 Mg/30 Ml Oral.Susp) 524 mg PO QID PRN PRN Reason: Indigestion Last Admin: 07/18/21 15:06 Dose: 524 mg Documented by: LORE Dextrose (Dextrose 50 % 25 Gm/50 Ml Syringe) 25 gm IVPUSH Q15M PRN; Protocol PRN Reason: per Hypoglycemia Standing Ord. Docusate Sodium (Docusate Sodium 100 Mg Capsule) 100 mg PO DAILY PRN PRN Reason: Constipation Furosemide (Furosemide 100 Mg/10 Ml Vial) 80 mg IVPUSH BID@0900,1800 [facility]; Sarwat col Glucose (Glucose Gel 15 Gm Gel..Gram.) 15 gm PO Q15M PRN; Protocol PRN Reason: per Hypoglycemia Standing Ord. Hydralazine HCl (Hydralazine Hcl 25 Mg Tablet) 25 mg PO TID [facility]; Protocol Last Admin: 07/19/21 10:28 Dose: 25 mg Documented by: BILL Hydromorphone HCl (Hydromorphone Hcl 1 Mg/Ml Syringe) 0.5 mg IVPUSH Q4H PRN; Protocol PRN Reason: Pain, Severe (Pain Scale 7-10) Last Admin: 07/19/21 08:01 Dose: 0.5 mg Documented by: BILL Insulin Human Lispro (Insulin Lispro 100 Unit/Ml 3 Ml Vial) 0 unit SUBCUT QIDACHS [facility]; Protocol Last Admin: 07/19/21 13:15 Dose: 4 unit Documented by: BILL Isosorbide Mononitrate (Isosorbide Mononitrate 60 Mg Tab.Er.24h) 60 mg PO DAILY [facility]; Protocol Last Admin: 07/19/21 10:27 Dose: 60 mg Documented by: BILL Metoprolol Succinate (Metoprolol Succinate Er 25 Mg Tab.Er.24h) 25 mg PO DAILY [facility]; Protocol Last Admin: 07/19/21 10:27 Dose: 25 mg Documented by: BILL Ondansetron HCl (Ondansetron Hcl 4 Mg/2 Ml Vial) 4 mg IVPUSH Q8H PRN PRN Reason: Nausea and Vomiting Last Admin: 07/19/21 06:16 Dose: 4 mg Documented by: GIL Pantoprazole Sodium (Pantoprazole Sodium 40 Mg/10 Ml Vial) 40 mg IVPUSH BID@0630,1630 [facility] Last Admin: 07/19/21 06:01 Dose: 40 mg Documented by: GIL Pharmacy Consult (Consult Rx Perform Med Rec) 1 each MISCELLANE ONCE PRN PRN Reason: Consult order Sodium Chloride (0.9 % Sodium Chloride Flush 3 Ml Syringe) 3 ml IVFLUSH QSHIFT [facility] Last Admin: 07/19/21 10:26 Dose: 3 ml Documented by: BILL Labs CBC & Chem 7: 07/19/21 06:56 07/19/21 06:56 Labs: Laboratory Results - last 24 hr 07/18/21 07/18/21 07/18/21 17:48 18:17 20:58 PT INR Anion Gap Estim Creat Clear Calc Estimated GFR POC Glucose 167 H 192 H Random Glucose Calcium Magnesium 2.8 H B-Natriuretic Peptide 07/19/21 07/19/21 07/19/21 05:57 06:56 06:56 PT 32.9 H INR 2.8 H Anion Gap 15 Estim Creat Clear Calc 54.7 Estimated GFR 33 POC Glucose 157 H Random Glucose 170 H Calcium 8.5 Magnesium 2.8 H B-Natriuretic Peptide 07/19/21 07/19/21 06:56 12:16 PT INR Anion Gap Estim Creat Clear Calc Estimated GFR POC Glucose 161 H Random Glucose Calcium Magnesium B-Natriuretic Peptide 307 H Microbiology Microbiology Results: Microbiology 07/17/21 15:05 Blood Culture - Preliminary Blood - Venous No growth after 24 hours. 07/17/21 14:48 Blood Culture - Preliminary Blood - Venous No growth after 24 hours. Assessment and Plan (1) Chronic combined systolic and diastolic congestive heart failure: Status: Acute (2) Atrial fibrillation: Status: Acute (3) Dizziness: Status: Acute Assessment and Plan: hospital d#3 61yo M with HTN, HFpEF with cardioMEMS device in place, HLD, CAD, DM2, DARLENE, severe pHTN, AF on warfarin, CKD3-4, hx CVA, polycythemic vera, chronic hypoxic respiratory failure on 2L recent admission to [facility] for CHF exacerbation presenting with nausea/vomiting, dizziness # pontine CVA - continue statin, start clopidogrel to replace ASA, Neuro consult pending # hypoK - repleted # nausea/vomiting with 1 episode blood-streaked vomitus - ?Brinda-Reyes tear. has not recurred - IV PPI - follow H+H - resume warfarin cautiously # hematuria - likely due to traumatic Camilo placement; Urology consult pending # permanent AF - continue metoprolol; d/c digoxin due to CK - Cardiology following - resume warfarin, monitor INR # acute/chronic HFpEF - per Cardiology: [facility] admit for acute on chronic systolic and diastolic HF from 06/26 - 07/13. Discharge summary reviewed and notes indicate he was discharged around 15 liters and discharge weight was 295lb. His discharge diuretics included Torsemide 100mg bid and Metolazone 5 mg daily.? Echo done at [facility] on 12/05/20 shows EF 50%, no regional WMA, mild , mod pulm HTN. He has a cardiomems PA sensor in place and [facility]. Cardiomems reading done 07/12/21 reported as PAD 30, SONAL 45.? He presented to [facility] with symptoms as above. CXR showed NAD. On exam he does have LE edema, which he states was present even upon discharge from [facility]. He has visable JVD. His diuretics had been initially held then Torsemide restarted yesterday. Able to obtain cardiomems reading today: PAD 45, SONAL 64. Will change Torsemide to Lasix 80mg IV bid. Will give Metolazone 5mg today. # leukocytosis - reactive from vomiting? no sign of infection # acute/chronic hypoxic respiratory failure - wean O2 as tolerated, on 2L at home # DM2 with hypyerglycemia, A1c 8.6 - correction-dose lispro. on U-500 + Trulicity at home. in-house will need basal insulin once taking more POs consistently # CAD - episode of chest pain resolved, troponins flat - continue statin, metoprolol, Imdur # CKD4 - SCr stable, avoid nephrotoxins # HTN - metoprolol, hydralazine, amlodipine # morbid obesity - outpt bariatrics evaluation can be considered # DARLENE - CPAP at night # VTE ppx - warfarin # dispo - plan eventual home with PT Quality Stroke Does the patient have a stroke diagnosis?: No VTE Prior VTE?: No VTE Risk Level:: Medical - moderate - high VTE Device Contraindication: N/A - Device Ordered VTE Drug Contraindication: Treatment Not Indicated
--- NOTE | 2021-07-19 15:43 | MHC.CM.PN ---
EMR REVIEWED, PER MULTIDISCIPLINARY ROUNDS PT AWAITING NEURO CONSULT, REFUSING STR AND HOSPITALIST ANTICIPATES D/C Sunday07/21/21 W/PLAN TO RETURN TO [facility], CAREGIVER FOR TRANSPORT.
[2021-07-19] MEDS: Potassium Chloride ER 20 MEQ TAB.ER.PRT PO (16:10)
[2021-07-19 16:24] LABS: Glucose, Whole Blood 167 mg/dL (60-115)
[2021-07-19] MEDS: Acetaminophen 325 MG TABLET 650 MG PO (16:31)
[2021-07-19] MEDS: metOLazone 5 MG TABLET PO (17:44)
[2021-07-19 18:17] LABS: Glucose, Whole Blood 175 mg/dL (60-115)
[2021-07-19] MEDS: Furosemide 100 MG/10 ML VIAL 80 MG IVPUSH (18:18)
--- NOTE | 2021-07-19 19:25 | PC.NURSE ---
Pt alert and oriented x4, calm and cooperative. Pt denies pain at this time. Pt remains bedrest, turned and positioned every 2 hours. Pt did not eat dinner, states decreased appetite. Camilo catheter remains in place, draining red urine, no clots present, Urology consult placed. IV intact, vitals stable. Pt resting in stretcher without issues, will continue to monitor.
[2021-07-19] MEDS: Warfarin Sodium 2.5 MG TABLET PO (19:35)
[2021-07-19] MEDS: Amitriptyline HCl 50 MG TABLET 150 MG PO (20:44)
--- NOTE | 2021-07-19 20:58 | PC.NURSE ---
Pt mcknight catheter placed earlier by previous shift RN, per previous RN mcknight catheter has been draining bloody urine since placement. Since 1500 when I came onto shift, pt noted to have bloody urine and 400ml output from catheter. 2100 urine output noted to be 100ml, dark red/bloody, thickened blood/clot noted around outside of mcknight tube at insertion site. Pt complains of pain and burning at insertion site and bladder, states pain at bladder is worse with palpation. MD Whitney aware, per orders encourage PO fluids .
[2021-07-19 21:55] LABS: Glucose, Whole Blood 142 mg/dL (60-115)
[2021-07-20] MEDS: HYDROmorphone HCl 1 MG/ML SYRINGE 0.5 MG IVPUSH ×3 (00:34→20:06)
[2021-07-20 00:58] VITALS: BP 126/63; PULSE 63; RESP 8; TEMP 36.8; O2SAT 91
[2021-07-20 05:24] VITALS: BP 120/63; PULSE 56; RESP 10; TEMP 36.7; O2SAT 95
[2021-07-20] MEDS: Pantoprazole Sodium 40 MG/10 ML VIAL IVPUSH ×2 (05:24→16:31)
[2021-07-20 06:43] LABS: Venous Blood Gas Refer to POC result
[2021-07-20 06:44] LABS: VBG Base Excess 11.3 mmol/L; VBG HCO3 36 mmol/L (22-26); VBG pCO2 51 mmHg; VBG pH 7.45 (7.32-7.43); VBG pO2 130 mmHg
[2021-07-20 07:05] LABS: Hemoglobin 11.7 g/dl (14.0-18.0); Mean Corpuscular HGB Conc 32.5 g/dl (31.0-36.0); Mean Corpuscular Hemoglobin 28.6 pg (27.0-33.0); Mean Platelet Volume 9.6 fL (9.4-12.4); Platelet Count 241 X10*3/uL (160-400); Red Blood Count 4.09 X10*6/uL (4.60-5.80); Red Cell Distribution Width 16.6 % (11.0-16.0); White Blood Count 11.3 X10*3/uL (4.8-10.8)
[2021-07-20 07:15] LABS: INTERNATIONAL NORM RATIO 2.9 (0.9-1.1)
[2021-07-20 07:25] LABS: B Type Natriuretic Peptide 365 pg/mL (<100)
[2021-07-20 07:34] LABS: Anion Gap 13 (12-20); Blood Urea Nitrogen 95 mg/dL (9-16); Calcium 8.2 mg/dL (8.4-10.2); Carbon Dioxide 33 mmol/L (22-29); Chloride 97 mmol/L (96-108); Creatinine Clr Calc Pharmacy 53.9; Estimated Glomerular Filt Rate 33; Glucose Random 124 mg/dL (60-115); Potassium 3.4 mmol/L (3.3-5.1); Sodium 140 mmol/L (135-145)
[2021-07-20 07:58] LABS: Glucose, Whole Blood 117 mg/dL (60-115)
--- NOTE | 2021-07-20 08:25 | P.CNUR_ITS ---
History of Present Illness Consult details Consult date: 07/20/21 Narrative: Vineet is a pleasant male Admitted to the hospital with chest pain, nausea and vomiting had Recent 2 week admission to [facility] with acute on chronic cardiac failure Extensive cardiac history including compromised ejection fraction and rhythm issues Remains on Coumadin at baseline Experienced suprapubic discomfort and Camilo catheter was placed with good outflow Hematuria has occurred INR 2.9 Suggest holding anticoagulation till INR within target range per cardiology guideline for AF Review of Systems Constitutional: Constitutional: Reports as per HPI and Reports no additional constitutional complaints Cardiovascular: Cardiovascular: Reports as per HPI and Reports no additional cardiovascular complaints Respiratory: Respiratory: Reports as per HPI and Reports no additional respiratory complaints Gastrointestinal: Gastrointestinal: Reports as per HPI and Reports no additional gastrointestinal complaints Genitourinary: Genitourinary: Reports as per HPI Musculoskeletal: Musculoskeletal: Reports no additional musculoskeletal complaints and Reports as per HPI Neurologic: Reports system reviewed and no additional complaints, except as documented and Reports as per HPI [facility] Past Medical History Medical History (Updated 07/20/21 @ 08:34 by Tee Mondragon MD) Atrial fibrillation CAD (coronary artery disease) Cataract Cholecystectomy planned Chronic combined systolic and diastolic congestive heart failure Chronic respiratory failure CKD (chronic kidney disease) stage 3, GFR 30-59 ml/min CVA (cerebral vascular accident) Diabetes Heart attack HTN (hypertension) Hyperlipidemia Neuropathy DARLENE on CPAP Permanent atrial fibrillation Polycythemia vera Pulmonary hypertension Toe amputee Functional capacity: independent ambulation Family History Family History (Updated 09/16/20 @ 11:46 by Saskia Lang) Father Diabetes Hx of cancer antigen 125 (CA-125) measurement Mother Diabetes Brother Diabetes Hx of cancer antigen 125 (CA-125) measurement Surgical History Surgical History (Updated 07/17/21 @ 17:00 by BRENTON Lang) History of cholecystectomy Social History Social History Household Members: Caregiver Housing: House Do you presently have visiting nurse or other home services: Yes Alcohol intake: current Alcohol intake frequency: does not drink Alcohol type: beer Patient Tobacco Use Status: Never used Tobacco Use of substances other than those prescribed or required for medical reasons: No Advance Directives: No Advance Directives Information Provided: Yes service: No Current occupational status: disabled Meds Allergies Allergy/AdvReac Type Severity Reaction Status Date / Time No Known Allergies Allergy Unknown NKDA Verified 07/17/21 13:37 Active Medications: Current Medications Acetaminophen (Acetaminophen 325 Mg Tablet) 650 mg PO Q6H PRN PRN Reason: Pain, Mild (Pain Scale 1-3) Last Admin: 07/19/21 16:31 Dose: 650 mg Documented by: Al Hydroxide/Mg Hydroxide (Magnesium Hydrox/Alum Hydrox 30 Ml Oral.Susp) 30 ml PO Q4H PRN PRN Reason: heartbirun Last Admin: 07/19/21 00:23 Dose: 30 ml Documented by: Amitriptyline HCl (Amitriptyline Hcl 50 Mg Tablet) 150 mg PO BEDTIME [facility] Last Admin: 07/19/21 20:44 Dose: 150 mg Documented by: Amitriptyline HCl (Amitriptyline Hcl 50 Mg Tablet) 50 mg PO DAILY [facility] Last Admin: 07/19/21 10:27 Dose: 50 mg Documented by: Amlodipine Besylate (Amlodipine Besylate 10 Mg Tablet) 10 mg PO DAILY [facility]; Protocol Last Admin: 07/19/21 10:28 Dose: 10 mg Documented by: Ascorbic Acid (Ascorbic Acid 500 Mg Tablet) 500 mg PO DAILY [facility] Last Admin: 07/19/21 10:27 Dose: 500 mg Documented by: Atorvastatin Calcium (Atorvastatin Calcium 80 Mg Tablet) 80 mg PO DAILY [facility] Last Admin: 07/19/21 10:26 Dose: 80 mg Documented by: Bismuth Subsalicylate (Bismuth Subsalicylate Liquid 524 Mg/30 Ml Oral.Susp) 524 mg PO QID PRN PRN Reason: Indigestion Last Admin: 07/18/21 15:06 Dose: 524 mg Documented by: Clopidogrel Bisulfate (Clopidogrel Bisulfate 75 Mg Tablet) 75 mg PO DAILY [facility] Dextrose (Dextrose 50 % 25 Gm/50 Ml Syringe) 25 gm IVPUSH Q15M PRN; Protocol PRN Reason: per Hypoglycemia Standing Ord. Docusate Sodium (Docusate Sodium 100 Mg Capsule) 100 mg PO DAILY PRN PRN Reason: Constipation Furosemide (Furosemide 100 Mg/10 Ml Vial) 80 mg IVPUSH BID@0900,1800 [facility]; Protocol Last Admin: 07/19/21 18:18 Dose: 80 mg Documented by: Glucose (Glucose Gel 15 Gm Gel..Gram.) 15 gm PO Q15M PRN; Protocol PRN Reason: per Hypoglycemia Standing Ord. Hydralazine HCl (Hydralazine Hcl 25 Mg Tablet) 25 mg PO TID [facility]; Protocol Last Admin: 07/19/21 20:44 Dose: 25 mg Documented by: Hydromorphone HCl (Hydromorphone Hcl 1 Mg/Ml Syringe) 0.5 mg IVPUSH Q4H PRN; Protocol PRN Reason: Pain, Severe (Pain Scale 7-10) Last Admin: 07/20/21 00:34 Dose: 0.5 mg Documented by: Insulin Human Lispro (Insulin Lispro 100 Unit/Ml 3 Ml Vial) 0 unit SUBCUT QIDACHS [facility]; Protocol Last Admin: 07/19/21 21:55 Dose: 2 unit Documented by: Isosorbide Mononitrate (Isosorbide Mononitrate 60 Mg Tab.Er.24h) 60 mg PO DAILY [facility]; Protocol Last Admin: 07/19/21 10:27 Dose: 60 mg Documented by: Metoprolol Succinate (Metoprolol Succinate Er 25 Mg Tab.Er.24h) 25 mg PO DAILY [facility]; Protocol Last Admin: 07/19/21 10:27 Dose: 25 mg Documented by: Ondansetron HCl (Ondansetron Hcl 4 Mg/2 Ml Vial) 4 mg IVPUSH Q8H PRN PRN Reason: Nausea and Vomiting Last Admin: 07/19/21 06:16 Dose: 4 mg Documented by: Pantoprazole Sodium (Pantoprazole Sodium 40 Mg/10 Ml Vial) 40 mg IVPUSH BID@0630,1630 [facility] Last Admin: 07/20/21 05:24 Dose: 40 mg Documented by: Pharmacy Consult (Consult Rx Perform Med Rec) 1 each MISCELLANE ONCE PRN PRN Reason: Consult order Potassium Chloride (Potassium Chloride Er 20 Meq Tab.Er.Prt) 20 meq PO DAILY [facility] Last Admin: 07/19/21 16:10 Dose: 20 meq Documented by: Sodium Chloride (0.9 % Sodium Chloride Flush 3 Ml Syringe) 3 ml IVFLUSH QSHIFT [facility] Last Admin: 07/19/21 23:26 Dose: Not Given Documented by: Warfarin Sodium (Warfarin Sodium 2.5 Mg Tablet) 2.5 mg PO DAILY@1800 [facility] Last Admin: 07/19/21 19:35 Dose: 2.5 mg Documented by: Warfarin Sodium (Warfarin Sodium 2 Mg Tablet) 2 mg PO ONCE@1800 ONE Stop: 07/20/21 18:01 Home Medications Medication Instructions Recorded Confirmed Last Taken Type amitriptyline 50 mg tablet 1 tab PO DAILY 05/08/20 07/17/21 05/07/20 History atorvastatin 80 mg tablet 1 tab PO DAILY 05/08/20 07/17/21 05/07/20 History digoxin 125 mcg (0.125 mg) tablet 1 tab PO DAILY 05/08/20 07/17/21 05/07/20 History dulaglutide 1.5 mg/0.5 mL 1 mg SUBCUT QWEEK 05/08/20 07/17/21 05/03/20 History subcutaneous pen injector (Trulicity) insulin regular hum U-500 conc 500 20 unit SUBCUT QAM 05/08/20 07/17/21 05/07/20 08:00 History unit/mL subcutaneous soln (Humulin R U-500 (Concentrated) Insulin) metoprolol succinate 25 mg 1 tab PO DAILY 05/08/20 07/17/21 05/07/20 History tablet,extended release 24 hr warfarin 2.5 mg tablet 2 tab PO LU 05/08/20 07/17/21 05/07/20 History amitriptyline 50 mg tablet 150 mg PO BEDTIME 07/17/21 07/17/21 Unknown History amlodipine 10 mg tablet 1 tab PO DAILY 07/17/21 07/17/21 Unknown History ascorbic acid (vitamin C) 500 mg 500 mg PO DAILY 07/17/21 07/17/21 Unknown History tablet hydralazine 25 mg tablet 1 tab PO TID 07/17/21 07/17/21 Unknown History insulin regular hum U-500 conc 500 10 unit SUBCUT BEDTIME 07/17/21 07/17/21 Unknown History unit/mL subcutaneous soln (Humulin R U-500 (Concentrated) Insulin) isosorbide mononitrate 60 mg 1 tab PO DAILY 07/17/21 07/17/21 Unknown History tablet,extended release 24 hr metolazone 5 mg tablet 1 tab PO DAILY 07/17/21 07/17/21 Unknown History potassium chloride 10 mEq 10 meq PO DAILY 07/17/21 07/17/21 Unknown History capsule,extended release torsemide 100 mg tablet 1 tab PO BID 01/16/22 01/16/22 Unknown History warfarin 2.5 mg tablet 1 tab PO MOTUWETHFRSA 07/17/21 07/17/21 Unknown History Physical Exam Vital Signs: Vital Signs: Last Vital Signs Temp 98.0 F 07/20/21 05:24 Pulse 56 07/20/21 05:24 Resp 10 L 07/20/21 05:24 BP 120/63 07/20/21 05:24 Pulse Ox 95 07/20/21 05:24 Oxygen Flow Rate 2 07/17/21 13:33 BMI result Body Mass Index 42.0 Const: General: cooperative, healthy appearing, comfortable and no acute distress Orientation/consciousness: patient oriented x3 HENMT: Face and sinus: Yes normal facial exam Mouth: moist mucous membranes Neck: Neck: Yes normal visual inspection, Yes full ROM and Yes trachea midline Chest: Chest palpation & inspection: normal inspection of the chest Resp: Effort & Inspection: normal respiratory effort, able to speak in co mplete sentences and no respiratory distress GI: Inspection: Yes normal to inspection Back/Spine/Pelvis: Cervical Spine: normal cervical lordosis Thoracic/Lumbar Spine: thoracic and lumbar spine normal to inspection Skin: General skin exam: no rashes or lesions noted Neuro: General: patient oriented x3, tone normal and moves all extremities Extrem: General: Yes normal to inspection and Yes capillary refill normal Results Labs Result diagrams: 07/20/21 06:31 07/20/21 06:31 Labs: Abnormal lab results 07/19/21 07/19/21 07/19/21 Range/Units 06:56 12:16 16:20 WBC (4.8-10.8) X10*3/uL RBC (4.60-5.80) X10*6/uL Hgb (14.0-18.0) g/dl Hct (42.0-52.0) % RDW (11.0-16.0) % PT (9.9-13.0) SEC INR (0.9-1.1) VBG pH (7.32-7.43) VBG HCO3 (22-26) mmol/L Carbon Dioxide (22-29) mmol/L BUN (9-16) mg/dL Creatinine (0.5-1.4) mg/dL POC Glucose 161 H 167 H (60-115) mg/dL Random Glucose (60-115) mg/dL Calcium (8.4-10.2) mg/dL B-Natriuretic Peptide 307 H (<100) pg/mL 07/19/21 07/19/21 07/20/21 Range/Units 18:14 21:50 06:31 WBC 11.3 H (4.8-10.8) X10*3/uL RBC 4.09 L (4.60-5.80) X10*6/uL Hgb 11.7 L (14.0-18.0) g/dl Hct 36.0 L (42.0-52.0) % RDW 16.6 H (11.0-16.0) % PT (9.9-13.0) SEC INR (0.9-1.1) VBG pH (7.32-7.43) VBG HCO3 (22-26) mmol/L Carbon Dioxide (22-29) mmol/L BUN (9-16) mg/dL Creatinine (0.5-1.4) mg/dL POC Glucose 175 H 142 H (60-115) mg/dL Random Glucose (60-115) mg/dL Calcium (8.4-10.2) mg/dL B-Natriuretic Peptide (<100) pg/mL 07/20/21 07/20/21 07/20/21 Range/Units 06:31 06:31 06:31 WBC (4.8-10.8) X10*3/uL RBC (4.60-5.80) X10*6/uL Hgb (14.0-18.0) g/dl Hct (42.0-52.0) % RDW (11.0-16.0) % PT 34.0 H (9.9-13.0) SEC INR 2.9 H (0.9-1.1) VBG pH (7.32-7.43) VBG HCO3 (22-26) mmol/L Carbon Dioxide 33 H (22-29) mmol/L BUN 95 H (9-16) mg/dL Creatinine 2.08 H (0.5-1.4) mg/dL POC Glucose (60-115) mg/dL Random Glucose 124 H (60-115) mg/dL Calcium 8.2 L (8.4-10.2) mg/dL B-Natriuretic Peptide 365 H (<100) pg/mL 07/20/21 07/20/21 Range/Units 06:35 07:54 WBC (4.8-10.8) X10*3/uL RBC (4.60-5.80) X10*6/uL Hgb (14.0-18.0) g/dl Hct (42.0-52.0) % RDW (11.0-16.0) % PT (9.9-13.0) SEC INR (0.9-1.1) VBG pH 7.45 H (7.32-7.43) VBG HCO3 36 H (22-26) mmol/L Carbon Dioxide (22-29) mmol/L BUN (9-16) mg/dL Creatinine (0.5-1.4) mg/dL POC Glucose 117 H (60-115) mg/dL Random Glucose (60-115) mg/dL Calcium (8.4-10.2) mg/dL B-Natriuretic Peptide (<100) pg/mL Short CBC 07/20/21 Range/Units 06:31 WBC 11.3 H (4.8-10.8) X10*3/uL Hgb 11.7 L (14.0-18.0) g/dl Hct 36.0 L (42.0-52.0) % Plt Count 241 (160-400) X10*3/uL BMP 07/20/21 06:31 Sodium 140 Potassium 3.4 Chloride 97 Carbon Dioxide 33 H BUN 95 H Creatinine 2.08 H Calcium 8.2 L Urine 07/18/21 Range/Units 03:14 Urine Color STRAW Urine Appearance HAZY Urine pH 5.5 (5.0-8.0) Ur Specific [place] 1.020 (1.005-1.025) Urine Protein TRACE (NEG-TRACE) MG/DL Urine Glucose (UA) NEG (NEG) MG/DL All other labs normal. Assessment and Plan (1) Gross hematuria: Status: Acute Hold Coumadin till INR in lower end of target range for AF This would be under 2.5 Hold aspirin Recommend single agent anticoagulation given current hematuria Hematuria will not resolve unless single agent anticoagulation is initiated Procedures Date of Service Date of Service: 07/20/21
[2021-07-20 09:03] VITALS: BP 120/70; PULSE 60; RESP 14; TEMP 36.6; O2SAT 90
[2021-07-20] MEDS: Potassium Chloride ER 20 MEQ TAB.ER.PRT PO (09:16)
[2021-07-20] MEDS: Insulin Lispro 100 UNIT/ML 3 ML VIAL SUBCUT ×3 (09:16→21:32)
[2021-07-20] MEDS: Isosorbide Mononitrate 60 MG TAB.ER.24H PO (09:17)
[2021-07-20] MEDS: Metoprolol Succinate ER 25 MG TAB.ER.24H PO (09:17)
[2021-07-20] MEDS: Clopidogrel Bisulfate 75 MG TABLET PO (09:17)
[2021-07-20] MEDS: Atorvastatin Calcium 80 MG TABLET PO (09:17)
[2021-07-20] MEDS: amLODIPine Besylate 10 MG TABLET PO (09:17)
[2021-07-20] MEDS: Ascorbic Acid 500 MG TABLET PO (09:17)
[2021-07-20] MEDS: Amitriptyline HCl 50 MG TABLET PO (09:17)
[2021-07-20] MEDS: hydrALAZINE HCl 25 MG TABLET PO ×3 (09:17→21:31)
[2021-07-20] MEDS: Furosemide 100 MG/10 ML VIAL 80 MG IVPUSH ×2 (09:18→17:59)
--- NOTE | 2021-07-20 09:28 | PC.NURSE ---
Pt received from manager msw: Pt AOX4 and c/o mild L sided abd pain. NSR to sinus shayy noted with lungs dimished with mild crackles. Pt remains on 2-3L N/C. Pt abd round, hard and slight tenderness to Lside. Camilo catheter in place and draining dark red blood. MD Hough aware and communication order for CBI. Workforce Planning Analyst also aware of morning vitals and received verification to give all morning medication as pt takes them all at home.
--- NOTE | 2021-07-20 10:00 | PM.PNCARD ---
Subjective Subjective Date of Service: 07/20/21 <KEYANNA Burdick - Last Filed: 07/20/21 10:31> 07/20/21 <Coleman Burnett MD - Last Filed: 07/20/21 11:03> Principal diagnosis: Dizziness, CVA, afib, chronic diastolic HF <KEYANNA Burdick - Last Filed: 07/20/21 10:31> Interval history: Cardiology follow up for HF, afib. Seen at 0900. Today he reports that he still has a headache, 02/08. He has ongoing dizziness which he reports as being the same . He denies visual disturbances. He is more awake and alert today. Moves all extremeties to command. Oriented x3. Denies chest pains, palpitations, shortness of breath. Wearing O2 with cannula. Did not sleep well. Has pain from mcknight catheter. Hematuria continues. Has not been seen by neuro yet. <KEYANNA Burdick - Last Filed: 07/20/21 10:31> Review of Systems Review of Systems as above <KEYANNA Burdick - Last Filed: 07/20/21 10:31> Yes all other systems are reviewed and are negative <KEYANNA Burdick - Last Filed: 07/20/21 10:31> Physical Exam Vital Signs: Last Vital Signs Temp 97.8 F 07/20/21 09:03 Pulse 60 07/20/21 09:03 Resp 14 07/20/21 09:03 BP 120/70 07/20/21 09:03 Pulse Ox 90 L 07/20/21 09:03 Oxygen Flow Rate 2 07/17/21 13:33 BMI result Body Mass Index 42.0 <KEYANNA Burdick - Last Filed: 07/20/21 10:31> Const Other: morbid obesity <KEYANNA Burdick Last Filed: 07/20/21 10:31> General: cooperative, no acute distress, alert and awake <KEYANNA Burdick Last Filed: 07/20/21 10:31> Orientation/consciousness: patient oriented x3 <KEYANNA Burdick - Last Filed: 07/20/21 10:31> Neck Neck: Yes JVD <ROBERTO BurdickC - Last Filed: 07/20/21 10:31> Resp Effort & Inspection: normal respiratory effort, able to speak in complete sentences and not labored <Hilda Conway KEYANNA - Last Filed: 07/20/21 10:31> Auscultation: clear to auscultation bilaterally (diminshed without distinct rales or rhonci), no rales, no rhonchi and no wheezes <Hilda ConwaySOFÍACaroC - Last Filed: 07/20/21 10:31> Cardio Jugular venous distension: JVD present <Hilda ConwaySOFÍACaroC - Last Filed: 07/20/21 10:31> Palpation: normal PMI <Hilda ConwaySOFÍARadha - Last Filed: 07/20/21 10:31> Rate: regular rate <Hilda Conway ROBEROT - Last Filed: 07/20/21 10:31> Rhythm: abnormal rhythm irregularly irregular <Hilda Conway ROBERTO - Last Filed: 07/20/21 10:31> Heart sounds: S2 normal heart sound present and Murmur heart sound present (systolic, left upper sternal border) <Hilda ConwaySOFÍACaroC - Last Filed: 07/20/21 10:31> Peripheral pulses: Peripheral pulses 2+ throughout <Hilda ConwaySOFÍACaroC - Last Filed: 07/20/21 10:31> GI Other: obese, nontender <Hilda ConwaySOFÍARadha - Last Filed: 07/20/21 10:31> Inspection: Yes normal to inspection <Hilda ConwaySOFÍACaroC - Last Filed: 07/20/21 10:31> Other: Mcknight in place - hematuria noted <Hilda ConwaySOFÍACaroC - Last Filed: 07/20/21 10:31> Skin Other: venous stasis changes to lower legs <Hilda ConwaySOFÍA-C - Last Filed: 07/20/21 10:31> General skin exam: no rashes or lesions noted <Hilda ConwaySOFÍA-C - Last Filed: 07/20/21 10:31> Neuro General: patient oriented x3 <KEYANNA Burdick - Last Filed: 07/20/21 10:31> Extrem Other: pitting edema to his upper legs <KEYANNA Burdick - Last Filed: 07/20/21 10:31> Objective Labs and Meds Result diagrams: : 07/20/21 06:31 07/20/21 06:31 <KEYANNA Burdick - Last Filed: 07/20/21 10:31> Lab results: Laboratory Results - last 24 hr 07/19/21 07/19/21 07/19/21 12:16 16:20 18:14 WBC RBC Hgb Hct MCV MCH MCHC RDW Plt Count MPV Absolute Nucleated RBC Nucleated RBC % (auto) PT INR VBG pH VBG pCO2 VBG pO2 VBG HCO3 VBG O2 Saturation VBG Base Excess Sodium Potassium Chloride Carbon Dioxide Anion Gap BUN Creatinine Estim Creat Clear Calc Estimated GFR POC Glucose 161 H 167 H 175 H Random Glucose Calcium B-Natriuretic Peptide 07/19/21 07/20/21 07/20/21 21:50 06:31 06:31 WBC 11.3 H RBC 4.09 L Hgb 11.7 L Hct 36.0 L MCV 88.0 MCH 28.6 MCHC 32.5 RDW 16.6 H Plt Count 241 MPV 9.6 Absolute Nucleated RBC 0.000 Nucleated RBC % (auto) 0.0 PT INR VBG pH VBG pCO2 VBG pO2 VBG HCO3 VBG O2 Saturation VBG Base Excess Sodium 140 Potassium 3.4 Chloride 97 Carbon Dioxide 33 H Anion Gap 13 BUN 95 H Creatinine 2.08 H Estim Creat Clear Calc 53.9 Estimated GFR 33 POC Glucose 142 H Random Glucose 124 H Calcium 8.2 L B-Natriuretic Peptide 07/20/21 07/20/21 07/20/21 06:31 06:31 06:35 WBC RBC Hgb Hct MCV MCH MCHC RDW Plt Count MPV Absolute Nucleated RBC Nucleated RBC % (auto) PT 34.0 H INR 2.9 H VBG pH 7.45 H VBG pCO2 51 VBG pO2 130 VBG HCO3 36 H VBG O2 Saturation 99.0 VBG Base Excess 11.3 Sodium Potassium Chloride Carbon Dioxide Anion Gap BUN Creatinine Estim Creat Clear Calc Estimated GFR POC Glucose Random Glucose Calcium B-Natriuretic Peptide 365 H 07/20/21 07:54 WBC RBC Hgb Hct MCV MCH MCHC RDW Plt Count MPV Absolute Nucleated RBC Nucleated RBC % (auto) PT INR VBG pH VBG pCO2 VBG pO2 VBG HCO3 VBG O2 Saturation VBG Base Excess Sodium Potassium Chloride Carbon Dioxide Anion Gap BUN Creatinine Estim Creat Clear Calc Estimated GFR POC Glucose 117 H Random Glucose Calcium B-Natriuretic Peptide <KEYANNA Burdick - Last Filed: 07/20/21 10:31> Progress Note: A&P Assessment and plan (1) CVA (cerebral vascular accident): Status: Acute <KEYANNA Burdick - Last Filed: 07/20/21 10:31> Assessment and Plan: Admit with dizziness, headache, N/V. Vertigo type symptoms, which did not respond to meclizine. Initial concern for bradycardia as a cause, however no significant bradycardia seen. CT of head showed no acute findings. Had MRI of brain 07/18 showing small focus of acute infarct within the verna, chronic left occipital infarct. Pt lethargic yesterday and more alert and appropriate today. He reports ongoing symptom of headache, dizziness, spinning. Denies nausea at present. Hospitalist has consulted neurology - still pending. Nurse notified to recall. <KEYANNA Burdick - Last Filed: 07/20/21 10:31> (2) Acute on chronic diastolic HF (heart failure): Status: Acute <KYEANNA Burdick - Last Filed: 07/20/21 10:31> Assessment and Plan: [facility] admit for acute on chronic systolic and diastolic HF from 06/26 - 07/13. Discharge summary reviewed and notes indicate he was discharged around 15 liters and discharge weight was 295lb. His discharge diuretics included Torsemide 100mg bid and Metolazone 5 mg daily.? Echo done at [facility] on 12/05/20 shows EF 50%, no regional WMA, mild , mod pulm HTN. He has a cardiomems PA sensor in place and follows with [facility] as out[facility]. Cardiomems reading done 07/12/21 reported as PAD 30, SONAL 45.? [place] [facility] [place] as [place]. CXR showed NAD. On exam he does have LE edema, which he states was present even upon discharge from [facility]. He has visable JVD. Able to obtain cardiomems reading yesterday: PAD 45, SONAL 64. Changed his Torsemide to Lasix 80mg IV bid and was given Metolazone 5mg. Hospitalist has added daily K supplement. Labs reviewed today, K 3.4, Cr 2.08, up from 2.05 yest. Will continue IV Lasix. Ongoing Strict I+O monitoring. O2 supplement as needed for sat > 90%. Will try to obtain recheck of Cardiomems reading tomorrow. <KEYANNA Burdick - Last Filed: 07/20/21 10:31> (3) Atrial fibrillation: Status: Acute <KEYANNA Burdick - Last Filed: 07/20/21 10:31> Assessment and Plan: Hx of chronic afib.? Rates currently controlled. Home Dig placed on hold due to CKD. Continues on Metoprolol for heart rate control. On Warfarin for anticoagulation. INR goal 2-3. INR 2.9 today. Has gross hematuria from mcknight insert, which continues today. Continue anticoagulation as able. Ongoing tele monitoring.? <KEYANNA Burdick - Last Filed: 07/20/21 10:31> (4) Gross hematuria: Status: Acute <KEYANNA Burdick - Last Filed: 07/20/21 10:31> Assessment and Plan: as above <KEYANNA Burdick - Last Filed: 07/20/21 10:31> Assessment and Plan: Patient seen and examined at bedside. Clinically volume overloaded. Neck veins are distended. Continue IV Lasix with metolazone as needed. He has hematuria due to traumatic Mcknight catheter placement. We will follow along with you. Thank you for allowing me to participate in the care of your patient. Please feel free to contact me if you have any questions. <Coleman Burnett MD - Last Filed: 07/20/21 11:03> Fall Risk Details Current Medications: Current Medications Acetaminophen (Acetaminophen 325 Mg Tablet) 650 mg PO Q6H PRN PRN Reason: Pain, Mild (Pain Scale 1-3) Last Admin: 07/19/21 16:31 Dose: 650 mg Documented by: Al Hydroxide/Mg Hydroxide (Magnesium Hydrox/Alum Hydrox 30 Ml Oral.Susp) 30 ml PO Q4H PRN PRN Reason: heartbirun Last Admin: 07/19/21 00:23 Dose: 30 ml Documented by: Amitriptyline HCl (Amitriptyline Hcl 50 Mg Tablet) 150 mg PO BEDTIME [facility] Last Admin: 07/19/21 20:44 Dose: 150 mg Documented by: Amitriptyline HCl (Amitriptyline Hcl 50 Mg Tablet) 50 mg PO DAILY [facility] Last Admin: 07/20/21 09:17 Dose: 50 mg Documented by: Amlodipine Besylate (Amlodipine Besylate 10 Mg Tablet) 10 mg PO DAILY [facility]; Protocol Last Admin: 07/20/21 09:17 Dose: 10 mg Documented by: Ascorbic Acid (Ascorbic Acid 500 Mg Tablet) 500 mg PO DAILY [facility] Last Admin: 07/20/21 09:17 Dose: 500 mg Documented by: Atorvastatin Calcium (Atorvastatin Calcium 80 Mg Tablet) 80 mg PO DAILY [facility] Last Admin: 07/20/21 09:17 Dose: 80 mg Documented by: Bismuth Subsalicylate (Bismuth Subsalicylate Liquid 524 Mg/30 Ml Oral.Susp) 524 mg PO QID PRN PRN Reason: Indigestion Last Admin: 07/18/21 15:06 Dose: 524 mg Documented by: Clopidogrel Bisulfate (Clopidogrel Bisulfate 75 Mg Tablet) 75 mg PO DAILY [facility] Last Admin: 07/20/21 09:17 Dose: 75 mg Documented by: Dextrose (Dextrose 50 % 25 Gm/50 Ml Syringe) 25 gm IVPUSH Q15M PRN; Protocol PRN Reason: per Hypoglycemia Standing Ord. Docusate Sodium (Docusate Sodium 100 Mg Capsule) 100 mg PO DAILY PRN PRN Reason: Constipation Furosemide (Furosemide 100 Mg/10 Ml Vial) 80 mg IVPUSH BID@0900,1800 [facility]; Protocol Last Admin: 07/20/21 09:18 Dose: 80 mg Documented by: Glucose (Glucose Gel 15 Gm Gel..Gram.) 15 gm PO Q15M PRN; Protocol PRN Reason: per Hypoglycemia Standing Ord. Hydralazine HCl (Hydralazine Hcl 25 Mg Tablet) 25 mg PO TID [facility]; Protocol Last Admin: 07/20/21 09:17 Dose: 25 mg Documented by: Hydromorphone HCl (Hydromorphone Hcl 1 Mg/Ml Syringe) 0.5 mg IVPUSH Q4H PRN; Protocol PRN Reason: Pain, Severe (Pain Scale 7-10) Last Admin: 07/20/21 00:34 Dose: 0.5 mg Documented by: Insulin Human Lispro (Insulin Lispro 100 Unit/Ml 3 Ml Vial) 0 unit SUBCUT QIDACHS [facility]; Protocol Last Admin: 07/20/21 09:16 Dose: 2 unit Documented by: Isosorbide Mononitrate (Isosorbide Mononitrate 60 Mg Tab.Er.24h) 60 mg PO DAILY [facility]; Protocol Last Admin: 07/20/21 09:17 Dose: 60 mg Documented by: Metoprolol Succinate (Metoprolol Succinate Er 25 Mg Tab.Er.24h) 25 mg PO DAILY [facility]; Protocol Last Admin: 07/20/21 09:17 Dose: 25 mg Documented by: Ondansetron HCl (Ondansetron Hcl 4 Mg/2 Ml Vial) 4 mg IVPUSH Q8H PRN PRN Reason: Nausea and Vomiting Last Admin: 07/19/21 06:16 Dose: 4 mg Documented by: Pantoprazole Sodium (Pantoprazole Sodium 40 Mg/10 Ml Vial) 40 mg IVPUSH BID@0630,1630 [facility] Last Admin: 07/20/21 05:24 Dose: 40 mg Documented by: Pharmacy Consult (Consult Rx Perform Med Rec) 1 each MISCELLANE ONCE PRN PRN Reason: Consult order Potassium Chloride (Potassium Chloride Er 20 Meq Tab.Er.Prt) 20 meq PO DAILY [facility] Last Admin: 07/20/21 09:16 Dose: 20 meq Documented by: Sodium Chloride (0.9 % Sodium Chloride Flush 3 Ml Syringe) 3 ml IVFLUSH QSHIFT [facility] Last Admin: 07/20/21 08:35 Dose: Not Given Documented by: Warfarin Sodium (Warfarin Sodium 2.5 Mg Tablet) 2.5 mg PO DAILY@1800 [facility] Last Admin: 07/19/21 19:35 Dose: 2.5 mg Documented by: Warfarin Sodium (Warfarin Sodium 2 Mg Tablet) 2 mg PO ONCE@1800 ONE Stop: 07/20/21 18:01 <KEYANNA Burdick - Last Filed: 07/20/21 10:31> Time Spent With Patient Time: Total time spent is greater than 50% in coordination of care (as documented) at patient's floor/unit and/or counseling patient: <KEYANNA Burdick - Last Filed: 07/20/21 10:31> Time with patient: 15 - 24 minutes <KEYANNA Burdick - Last Filed: 07/20/21 10:31> Progress Note: Quality Stroke Does the patient have a stroke diagnosis?: No <KEYANNA Burdick - Last Filed: 07/20/21 10:31> Procedures Date of Service Date of Service: 07/20/21 <KEYANNA Burdick - Last Filed: 07/20/21 10:31>
[2021-07-20 13:05] LABS: Glucose, Whole Blood 152 mg/dL (60-115)
[2021-07-20] MEDS: Lidocaine HCl 2 % Urojet 10 ML JEL.PF.APP TOPICAL (14:00)
--- NOTE | 2021-07-20 14:55 | P.CNNE_ITS ---
History of Present Illness Data of Consult Service Date: 07/20/21 Primary Care Provider: Unknown Physician HPI Reason for consult: Stroke 61 years old man with underlying history of obesity atrial fibrillation and a large left posterior cerebral artery infarct who came to hospital with dizziness and headache. To me he stated that he was having a headache and he could not lift his head up apparently in emergency room he has stated that he was dizzy and nauseous. There was no obvious focal weakness. He was on Coumadin and his INR was therapeutic. He was not considered a candidate for intravenous tPA type of treatment or intra-arterial treatment. He was admitted for for further evaluation. Later he developed urinary retention and when I saw him he was getting catheterization. Review of Systems Review of Systems: No recent trauma or cold or flu-like illness PMFSH Past Medical History Medical History (Updated 07/20/21 @ 08:34 by Tee Mondragon MD) Atrial fibrillation CAD (coronary artery disease) Cataract Cholecystectomy planned Chronic combined systolic and diastolic congestive heart failure Chronic respiratory failure CKD (chronic kidney disease) stage 3, GFR 30-59 ml/min CVA (cerebral vascular accident) Diabetes Heart attack HTN (hypertension) Hyperlipidemia Neuropathy DARLENE on CPAP Permanent atrial fibrillation Polycythemia vera Pulmonary hypertension Toe amputee Functional capacity: independent ambulation Family History Family History (Updated 09/16/20 @ 11:46 by Saskia Lang) Father Diabetes Hx of cancer antigen 125 (CA-125) measurement Mother Diabetes Brother Diabetes Hx of cancer antigen 125 (CA-125) measurement Surgical History Surgical History (Updated 07/17/21 @ 17:00 by BRENTON Lang) History of cholecystectomy Social History Social History Household Members: Caregiver Housing: House Do you presently have visiting nurse or other home services: Yes Alcohol intake: current Alcohol intake frequency: does not drink Alcohol type: beer Patient Tobacco Use Status: Never used Tobacco Use of substances other than those prescribed or required for medical reasons: No Advance Directives: No Advance Directives Information Provided: Yes service: No Current occupational status: disabled Meds Allergies Allergy/AdvReac Type Severity Reaction Status Date / Time No Known Allergies Allergy Unknown NKDA Verified 07/17/21 13:37 Active Medications: Current Medications Acetaminophen (Acetaminophen 325 Mg Tablet) 650 mg PO Q6H PRN PRN Reason: Pain, Mild (Pain Scale 1-3) Last Admin: 07/19/21 16:31 Dose: 650 mg Documented by: Al Hydroxide/Mg Hydroxide (Magnesium Hydrox/Alum Hydrox 30 Ml Oral.Susp) 30 ml PO Q4H PRN PRN Reason: heartbirun Last Admin: 07/19/21 00:23 Dose: 30 ml Documented by: Amitriptyline HCl (Amitriptyline Hcl 50 Mg Tablet) 150 mg PO BEDTIME [facility] Last Admin: 07/19/21 20:44 Dose: 150 mg Documented by: Amitriptyline HCl (Amitriptyline Hcl 50 Mg Tablet) 50 mg PO DAILY [facility] Last Admin: 07/20/21 09:17 Dose: 50 mg Documented by: Amlodipine Besylate (Amlodipine Besylate 10 Mg Tablet) 10 mg PO DAILY [facility]; Protocol Last Admin: 07/20/21 09:17 Dose: 10 mg Documented by: Ascorbic Acid (Ascorbic Acid 500 Mg Tablet) 500 mg PO DAILY [facility] Last Admin: 07/20/21 09:17 Dose: 500 mg Documented by: Atorvastatin Calcium (Atorvastatin Calcium 80 Mg Tablet) 80 mg PO DAILY [facility] Last Admin: 07/20/21 09:17 Dose: 80 mg Documented by: Bismuth Subsalicylate (Bismuth Subsalicylate Liquid 524 Mg/30 Ml Oral.Susp) 524 mg PO QID PRN PRN Reason: Indigestion Last Admin: 07/18/21 15:06 Dose: 524 mg Documented by: Clopidogrel Bisulfate (Clopidogrel Bisulfate 75 Mg Tablet) 75 mg PO DAILY [facility] Last Admin: 07/20/21 09:17 Dose: 75 mg Documented by: Dextrose (Dextrose 50 % 25 Gm/50 Ml Syringe) 25 gm IVPUSH Q15M PRN; Protocol PRN Reason: per Hypoglycemia Standing Ord. Docusate Sodium (Docusate Sodium 100 Mg Capsule) 100 mg PO DAILY PRN PRN Reason: Constipation Furosemide (Furosemide 100 Mg/10 Ml Vial) 80 mg IVPUSH BID@0900,1800 [facility]; Protocol Last Admin: 07/20/21 09:18 Dose: 80 mg Documented by: Glucose (Glucose Gel 15 Gm Gel..Gram.) 15 gm PO Q15M PRN; Protocol PRN Reason: per Hypoglycemia Standing Ord. Hydralazine HCl (Hydralazine Hcl 25 Mg Tablet) 25 mg PO TID [facility]; Protocol Last Admin: 07/20/21 09:17 Dose: 25 mg Documented by: Hydromorphone HCl (Hydromorphone Hcl 1 Mg/Ml Syringe) 0.5 mg IVPUSH Q4H PRN; Protocol PRN Reason: Pain, Severe (Pain Scale 7-10) Last Admin: 07/20/21 14:39 Dose: 0.5 mg Documented by: Insulin Human Lispro (Insulin Lispro 100 Unit/Ml 3 Ml Vial) 0 unit SUBCUT QIDACHS [facility]; Protocol Last Admin: 07/20/21 13:16 Dose: 4 unit Documented by: Isosorbide Mononitrate (Isosorbide Mononitrate 60 Mg Tab.Er.24h) 60 mg PO DAILY [facility]; Protocol Last Admin: 07/20/21 09:17 Dose: 60 mg Documented by: Metoprolol Succinate (Metoprolol Succinate Er 25 Mg Tab.Er.24h) 25 mg PO DAILY [facility]; Protocol Last Admin: 07/20/21 09:17 Dose: 25 mg Documented by: Ondansetron HCl (Ondansetron Hcl 4 Mg/2 Ml Vial) 4 mg IVPUSH Q8H PRN PRN Reason: Nausea and Vomiting Last Admin: 07/19/21 06:16 Dose: 4 mg Documented by: Pantoprazole Sodium (Pantoprazole Sodium 40 Mg/10 Ml Vial) 40 mg IVPUSH BID@0630,1630 [facility] Last Admin: 07/20/21 05:24 Dose: 40 mg Documented by: Pharmacy Consult (Consult Rx Perform Med Rec) 1 each MISCELLANE ONCE PRN PRN Reason: Consult order Potassium Chloride (Potassium Chloride Er 20 Meq Tab.Er.Prt) 20 meq PO DAILY [facility] Last Admin: 07/20/21 09:16 Dose: 20 meq Documented by: Sodium Chloride (0.9 % Sodium Chloride Flush 3 Ml Syringe) 3 ml IVFLUSH QSHIFT [facility] Last Admin: 07/20/21 08:35 Dose: Not Given Documented by: Warfarin Sodium (Warfarin Sodium 2.5 Mg Tablet) 2.5 mg PO DAILY@1800 [facility] Last Admin: 07/19/21 19:35 Dose: 2.5 mg Documented by: Warfarin Sodium (Warfarin Sodium 2 Mg Tablet) 2 mg PO ONCE@1800 ONE Stop: 07/20/21 18:01 Home Medications Medication Instructions Recorded Confirmed Last Taken Type amitriptyline 50 mg tablet 1 tab PO DAILY 05/08/20 07/17/21 05/07/20 History atorvastatin 80 mg tablet 1 tab PO DAILY 05/08/20 07/17/21 05/07/20 History digoxin 125 mcg (0.125 mg) tablet 1 tab PO DAILY 05/08/20 07/17/21 05/07/20 History dulaglutide 1.5 mg/0.5 mL 1 mg SUBCUT QWEEK 05/08/20 07/17/21 05/03/20 History subcutaneous pen injector (Trulicity) insulin regular hum U-500 conc 500 20 unit SUBCUT QAM 05/08/20 07/17/21 05/07/20 08:00 History unit/mL subcutaneous soln (Humulin R U-500 (Concentrated) Insulin) metoprolol succinate 25 mg 1 tab PO DAILY 05/08/20 07/17/21 05/07/20 History tablet,extended release 24 hr warfarin 2.5 mg tablet 2 tab PO LU 05/08/20 07/17/21 05/07/20 History amitriptyline 50 mg tablet 150 mg PO BEDTIME 07/17/21 07/17/21 Unknown History amlodipine 10 mg tablet 1 tab PO DAILY 07/17/21 07/17/21 Unknown History ascorbic acid (vitamin C) 500 mg 500 mg PO DAILY 07/17/21 07/17/21 Unknown History tablet hydralazine 25 mg tablet 1 tab PO TID 07/17/21 07/17/21 Unknown History insulin regular hum U-500 conc 500 10 unit SUBCUT BEDTIME 07/17/21 07/17/21 Unknown History unit/mL subcutaneous soln (Humulin R U-500 (Concentrated) Insulin) isosorbide mononitrate 60 mg 1 tab PO DAILY 07/17/21 07/17/21 Unknown History tablet,extended release 24 hr metolazone 5 mg tablet 1 tab PO DAILY 07/17/21 07/17/21 Unknown History potassium chloride 10 mEq 10 meq PO DAILY 07/17/21 07/17/21 Unknown History capsule,extended release torsemide 100 mg tablet 1 tab PO BID 07/17/21 07/17/21 Unknown History warfarin 2.5 mg tablet 1 tab PO MOTUWETHFRSA 07/17/21 07/17/21 Unknown History Physical Exam Vital Signs: Vital Signs: Last Vital Signs Temp 97.8 F 07/20/21 09:03 Pulse 60 07/20/21 09:03 Resp 14 07/20/21 09:03 BP 120/70 07/20/21 09:03 Pulse Ox 90 L 07/20/21 09:03 Oxygen Flow Rate 2 07/17/21 13:33 BMI result Body Mass Index 42.0 Neuro: Other: He was alert and awake with normal spontaneity of speech fluency comprehension and affect. Face was symmetrical. Extraocular muscles were intact. There was no obvious focal weakness to exam was limited. Results Labs CBC & Chem 7: 07/20/21 06:31 07/20/21 06:31 Labs: Short CBC 07/20/21 Range/Units 06:31 WBC 11.3 H (4.8-10.8) X10*3/uL Hgb 11.7 L (14.0-18.0) g/dl Hct 36.0 L (42.0-52.0) % Plt Count 241 (160-400) X10*3/uL BMP 07/20/21 06:31 Sodium 140 Potassium 3.4 Chloride 97 Carbon Dioxide 33 H BUN 95 H Creatinine 2.08 H Calcium 8.2 L His noncontrast head CT revealed chronic left posterior cerebral artery infarct. An MRI of brain was done that revealed a restricted area of diffusion in right basis pontis with corresponding FLAIR signal abnormality. EKG revealed atrial f ibrillation. Microbiology Microbiology Results: Microbiology 07/17/21 15:05 Blood - Venous Blood Culture - Preliminary No growth after 48 hours. 07/17/21 14:48 Blood - Venous Blood Culture - Preliminary No growth after 48 hours. Assessment and Plan (1) CVA (cerebral vascular accident): Status: Acute 61 years old man with morbid obesity and atrial fibrillation maintained on Coumadin came to hospital with new onset of dizziness. His evaluation revealed an acute right basis pontis infarct which usually is atherothrombotic in etiolo gy but can explain dizziness and unsteadiness. Unfortunately he was also having hematuria that would impede his ability to take anticoagulation. If hematuria was taken care of, anticoagulation should continue. Otherwise a baby aspirin daily can be tried. There is no specific treatment for this stroke other than physical therapy and occupational therapy help. This would definitely increases underlying disability. Procedures Date of Service Date of Service: 07/20/21
--- NOTE | 2021-07-20 15:58 | HO.PM.IMPN ---
Subjective Subjective Date of Service: 07/20/21 Interval History: Still dizzy Less short of breath, adherent with CPAP Has gross hematuria in Camilo Review of Systems Review of Systems: Yes all other systems are reviewed and are negative Physical Exam Vital Signs: Vital Signs: Last Vital Signs Temp 97.8 F 07/20/21 09:03 Pulse 60 07/20/21 09:03 Resp 14 07/20/21 09:03 BP 120/70 07/20/21 09:03 Pulse Ox 90 L 07/20/21 09:03 Oxygen Flow Rate 2 07/17/21 13:33 BMI result Body Mass Index 42.0 Gen: in no acute distress HEENT: sclera anicteric, moist mucus membranes Neck: supple, JVD present Lungs: diminished Heart: irregularly irregular Abd: soft, non-tender, non-distended, obese : Camilo with blood clots Ext: venous stasis hyperpigmentation of legs, pitting edema of legs to thighs bilaterally Skin: warm/well-perfused Neuro: alert and oriented x3, no pronator drift, no motor deficit Psych: appropriate affect Objective Data Active Medications Acetaminophen (Acetaminophen 325 Mg Tablet) 650 mg PO Q6H PRN PRN Reason: Pain, Mild (Pain Scale 1-3) Last Admin: 07/19/21 16:31 Dose: 650 mg Documented by: REENA Al Hydroxide/Mg Hydroxide (Magnesium Hydrox/Alum Hydrox 30 Ml Oral.Susp) 30 ml PO Q4H PRN PRN Reason: heartbirun Last Admin: 07/19/21 00:23 Dose: 30 ml Documented by: GIL Amitriptyline HCl (Amitriptyline Hcl 50 Mg Tablet) 150 mg PO BEDTIME [facility] Last Admin: 07/19/21 20:44 Dose: 150 mg Documented by: REENA Amitriptyline HCl (Amitriptyline Hcl 50 Mg Tablet) 50 mg PO DAILY [facility] Last Admin: 07/20/21 09:17 Dose: 50 mg Documented by: LINK Amlodipine Besylate (Amlodipine Besylate 10 Mg Tablet) 10 mg PO DAILY [facility]; Protocol Last Admin: 07/20/21 09:17 Dose: 10 mg Documented by: LINK Ascorbic Acid (Ascorbic Acid 500 Mg Tablet) 500 mg PO DAILY [facility] Last Admin: 07/20/21 09:17 Dose: 500 mg Documented by: LINK Atorvastatin Calcium (Atorvastatin Calcium 80 Mg Tablet) 80 mg PO DAILY [facility] Last Admin: 07/20/21 09:17 Dose: 80 mg Documented by: LINK Bismuth Subsalicylate (Bismuth Subsalicylate Liquid 524 Mg/30 Ml Oral.Susp) 524 mg PO QID PRN PRN Reason: Indigestion Last Admin: 07/18/21 15:06 Dose: 524 mg Documented by: LORE Clopidogrel Bisulfate (Clopidogrel Bisulfate 75 Mg Tablet) 75 mg PO DAILY [facility] Last Admin: 07/20/21 09:17 Dose: 75 mg Documented by: LINK Dextrose (Dextrose 50 % 25 Gm/50 Ml Syringe) 25 gm IVPUSH Q15M PRN; Protocol PRN Reason: per Hypoglycemia Standing Ord. Docusate Sodium (Docusate Sodium 100 Mg Capsule) 100 mg PO DAILY PRN PRN Reason: Constipation Furosemide (Furosemide 100 Mg/10 Ml Vial) 80 mg IVPUSH BID@0900,1800 [facility]; Protocol Last Admin: 07/20/21 09:18 Dose: 80 mg Documented by: LINK Glucose (Glucose Gel 15 Gm Gel..Gram.) 15 gm PO Q15M PRN; Protocol PRN Reason: per Hypoglycemia Standing Ord. Hydralazine HCl (Hydralazine Hcl 25 Mg Tablet) 25 mg PO TID [facility]; Protocol Last Admin: 07/20/21 09:17 Dose: 25 mg Documented by: LINK Hydromorphone HCl (Hydromorphone Hcl 1 Mg/Ml Syringe) 0.5 mg IVPUSH Q4H PRN; Protocol PRN Reason: Pain, Severe (Pain Scale 7-10) Last Admin: 07/20/21 14:39 Dose: 0.5 mg Documented by: MITRA Insulin Human Lispro (Insulin Lispro 100 Unit/Ml 3 Ml Vial) 0 unit SUBCUT QIDACHS [facility]; Protocol Last Admin: 07/20/21 13:16 Dose: 4 unit Documented by: MITRA Isosorbide Mononitrate (Isosorbide Mononitrate 60 Mg Tab.Er.24h) 60 mg PO DAILY [facility]; Protocol Last Admin: 07/20/21 09:17 Dose: 60 mg Documented by: LINK Metoprolol Succinate (Metoprolol Succinate Er 25 Mg Tab.Er.24h) 25 mg PO DAILY [facility]; Protocol Last Admin: 07/20/21 09:17 Dose: 25 mg Documented by: LINK Ondansetron HCl (Ondansetron Hcl 4 Mg/2 Ml Vial) 4 mg IVPUSH Q8H PRN PRN Reason: Nausea and Vomiting Last Admin: 07/19/21 06:16 Dose: 4 mg Documented by: GIL Pantoprazole Sodium (Pantoprazole Sodium 40 Mg/10 Ml Vial) 40 mg IVPUSH BID@0630,1630 [facility] Last Admin: 07/20/21 05:24 Dose: 40 mg Documented by: ANA Pharmacy Consult (Consult Rx Perform Med Rec) 1 each MISCELLANE ONCE PRN PRN Reason: Consult order Potassium Chloride (Potassium Chloride Er 20 Meq Tab.Er.Prt) 20 meq PO DAILY [facility] Last Admin: 07/20/21 09:16 Dose: 20 meq Documented by: LINK Sodium Chloride (0.9 % Sodium Chloride Flush 3 Ml Syringe) 3 ml IVFLUSH QSHIFT [facility] Last Admin: 07/20/21 08:35 Dose: Not Given Documented by: LINK Non-Admin Reason: Med Not Available Warfarin Sodium (Warfarin Sodium 2.5 Mg Tablet) 2.5 mg PO DAILY@1800 [facility] Last Admin: 07/19/21 19:35 Dose: 2.5 mg Documented by: REENA Warfarin Sodium (Warfarin Sodium 2 Mg Tablet) 2 mg PO ONCE@1800 ONE Stop: 07/20/21 18:01 Labs CBC & Chem 7: 07/20/21 06:31 07/20/21 06:31 Labs: Laboratory Results - last 24 hr 07/19/21 07/19/21 07/19/21 16:20 18:14 21:50 MCV MCH MCHC RDW Plt Count MPV Absolute Nucleated RBC Nucleated RBC % (auto) PT INR VBG pH VBG pCO2 VBG pO2 VBG HCO3 VBG O2 Saturation VBG Base Excess Anion Gap Estim Creat Clear Calc Estimated GFR POC Glucose 167 H 175 H 142 H Random Glucose Calcium B-Natriuretic Peptide 07/20/21 07/20/2122 06:31 06:31 06:31 MCV 88.0 MCH 28.6 MCHC 32.5 RDW 16.6 H Plt Count 241 MPV 9.6 Absolute Nucleated RBC 0.000 Nucleated RBC % (auto) 0.0 PT INR VBG pH VBG pCO2 VBG pO2 VBG HCO3 VBG O2 Saturation VBG Base Excess Anion Gap 13 Estim Creat Clear Calc 53.9 Estimated GFR 33 POC Glucose Random Glucose 124 H Calcium 8.2 L B-Natriuretic Peptide 365 H 07/20/21 07/20/21 07/20/21 06:31 06:35 07:54 MCV MCH MCHC RDW Plt Count MPV Absolute Nucleated RBC Nucleated RBC % (auto) PT 34.0 H INR 2.9 H VBG pH 7.45 H VBG pCO2 51 VBG pO2 130 VBG HCO3 36 H VBG O2 Saturation 99.0 VBG Base Excess 11.3 Anion Gap Estim Creat Clear Calc Estimated GFR POC Glucose 117 H Random Glucose Calcium B-Natriuretic Peptide 07/20/21 13:00 MCV MCH MCHC RDW Plt Count MPV Absolute Nucleated RBC Nucleated RBC % (auto) PT INR VBG pH VBG pCO2 VBG pO2 VBG HCO3 VBG O2 Saturation VBG Base Excess Anion Gap Estim Creat Clear Calc Estimated GFR POC Glucose 152 H Random Glucose Calcium B-Natriuretic Peptide Microbiology Microbiology Results: Microbiology 07/17/21 15:05 Blood Culture - Preliminary Blood - Venous No growth after 48 hours. 07/17/21 14:48 Blood Culture - Preliminary Blood - Venous No growth after 48 hours. Assessment and Plan (1) Chronic combined systolic and diastolic congestive heart failure: Status: Acute (2) Atrial fibrillation: Status: Acute (3) Dizziness: Status: Acute Assessment and Plan: hospital d#4 61yo M with HTN, HFpEF with cardioMEMS device in place, HLD, CAD, DM2, DARLENE, severe pHTN, AF on warfarin, CKD3-4, hx CVA, polycythemic vera, chronic hypoxic respiratory failure on 2L recent admission to [facility] for CHF exacerbation presenting with nausea/vomiting, dizziness # pontine CVA - Neuro consulted, continue statin, start clopidogrel to replace ASA once hematuria has resolved [pt was taking ASA prior to admission] # hypoK - repleted # nausea/vomiting with 1 episode blood-streaked vomitus - ?Brinda-Reyes tear. has not recurred - IV PPI - follow H+H - resumed warfarin cautiously # hematuria - likely due to traumatic Camilo placement; hold off on starting clopdigrel, continue warfarin with careful monitoring, and start CBI # permanent AF - continue metoprolol; d/c digoxin due to CKD - Cardiology following - resume warfarin, monitor INR # acute/chronic HFpEF - Cardiology following - admitted to [facility] 06/26/21-07/13/21, diuresed 15L, discharged at 295 lb on torsemide 100mg bid + metolazone 5 mg daily - TTE 07/07/20 LVEF 50%, no RWMA, mild , mod pulm HTN - CardioMEMS 07/12/21 PAD 30, SONAL 45; yesterday PAD 45, SONAL 64; repeat reading tomorrow - continue IV furosemide # leukocytosis - reactive from vomiting? no sign of infection # acute/chronic hypoxic respiratory failure - wean O2 as tolerated, on 2L at home # DM2 with hypyerglycemia, A1c 8.6 - correction-dose lispro. on U-500 + Trulicity at home. in-house may need basal insulin once taking more POs consistently # CAD - episode of chest pain resolved, troponins flat - continue statin, metoprolol, Imdur # CKD4 - SCr stable, avoid nephrotoxins # HTN - metoprolol, hydralazine, amlodipine # morbid obesity - outpt bariatrics evaluation can be considered # DARLENE - CPAP at night and for naps # VTE ppx - warfarin # dispo - plan eventual home with PT Quality Stroke Does the patient have a stroke diagnosis?: No VTE Prior VTE?: No VTE Risk Level:: Medical - moderate - high VTE Device Contraindication: N/A - Device Ordered VTE Drug Contraindication: Treatment Not Indicated
[2021-07-20 16:00] VITALS: BP 124/71; PULSE 70; RESP 14
[2021-07-20 16:14] VITALS: BP 124/61; PULSE 67; RESP 10; O2SAT 94
[2021-07-20 16:30] LABS: Glucose, Whole Blood 135 mg/dL (60-115)
[2021-07-20] MEDS: 0.9 % Sodium Chloride Flush 3 ML SYRINGE IVFLUSH ×2 (16:32→21:33)
--- NOTE | 2021-07-20 16:44 | MHC.STROKE ---
Addendum entered by Janki Landry RN 07/25/21 11:24: I MET WITH THE PATIENT TODAY TO PROVIDE STROKE EDUCATION. WE DISCUSSED HIS INDIVIDUAL RISK FACTORS, AFIB, PRIOR CVA, HTN, DM, HLD, CAD, OBESITY, CRF, SLEEP APNEA. I PROVIDED A SCREENSHOT OF HIS MRI AND DESCRIBED THE LOCATION OF THE STROKE AND CORRELATING SYMPTOMS. HE HAS BEEN COMPLIANT WITH HIS WARFARIN, I ANSWERED HIS QUESTIONS. Original Note: CONFIRMED THAT PATIENT PASSED SWALLOW SCREEN PRIOR TO PO AT 07/17/21 AT 2300. PLEASE DOCUMENT STROKE EDUCATION INTERVENTION AND PROVIDE STROKE BOOKLET.
[2021-07-20] MEDS: Warfarin Sodium 2 MG TABLET PO (17:59)
--- NOTE | 2021-07-20 19:06 | PC.NURSE ---
cbi wide open, flush x 1 with return of small clot. draining dark pink to clear. ok to give coumadin per dr valdivia
[2021-07-20 20:46] LABS: Glucose, Whole Blood 196 mg/dL (60-115)
[2021-07-20] MEDS: Amitriptyline HCl 50 MG TABLET 150 MG PO (21:31)
[2021-07-21] VITALS (9 sets, daily range): BP systolic 99–130; BP diastolic 61–81; PULSE 55–68; RESP 8–15; TEMP 36.1–36.6; O2SAT 92–97
[2021-07-21] MEDS: HYDROmorphone HCl 1 MG/ML SYRINGE 0.5 MG IVPUSH (00:58)
[2021-07-21 06:38] LABS: B Type Natriuretic Peptide 294 pg/mL (<100)
[2021-07-21 06:40] LABS: Anion Gap 16 (12-20); Carbon Dioxide 31 mmol/L (22-29); Chloride 93 mmol/L (96-108); Estimated Glomerular Filt Rate 27; Glucose Random 181 mg/dL (60-115); Potassium 3.8 mmol/L (3.3-5.1); Sodium 136 mmol/L (135-145)
[2021-07-21] MEDS: Pantoprazole Sodium 40 MG/10 ML VIAL IVPUSH (06:46)
[2021-07-21] MEDS: HYDROmorphone HCl 0.5 MG/0.5 ML SYRINGE IVPUSH (06:46)
[2021-07-21 06:52] LABS: Blood Urea Nitrogen 97 mg/dL (9-16); Calcium 8.2 mg/dL (8.4-10.2); Creatinine Clr Calc Pharmacy 46.2; Magnesium 2.8 mg/dL (1.6-2.6)
[2021-07-21 07:20] LABS: INTERNATIONAL NORM RATIO 3.4 (0.9-1.1); Prothrombin Time 39.6 SEC (9.9-13.0)
[2021-07-21 07:43] LABS: Glucose, Whole Blood 165 mg/dL (60-115)
[2021-07-21] MEDS: Insulin Lispro 100 UNIT/ML 3 ML VIAL SUBCUT ×4 (10:00→21:03)
[2021-07-21] MEDS: hydrALAZINE HCl 25 MG TABLET PO (10:00)
[2021-07-21] MEDS: Atorvastatin Calcium 80 MG TABLET PO (10:01)
[2021-07-21] MEDS: Ascorbic Acid 500 MG TABLET PO (10:01)
[2021-07-21] MEDS: Metoprolol Succinate ER 25 MG TAB.ER.24H PO (10:01)
[2021-07-21] MEDS: Isosorbide Mononitrate 60 MG TAB.ER.24H PO (10:01)
[2021-07-21] MEDS: amLODIPine Besylate 10 MG TABLET PO (10:02)
[2021-07-21] MEDS: Furosemide 100 MG/10 ML VIAL 80 MG IVPUSH (10:02)
[2021-07-21] MEDS: Potassium Chloride ER 20 MEQ TAB.ER.PRT PO (10:02)
[2021-07-21] MEDS: Amitriptyline HCl 50 MG TABLET PO (10:15)
[2021-07-21] MEDS: 0.9 % Sodium Chloride Flush 3 ML SYRINGE IVFLUSH ×2 (10:19→16:45)
--- NOTE | 2021-07-21 11:08 | PC.NURSE ---
pt alert and oriented, vss, pt reports 7/10 chronic back pain. pt remains on CBI. light pink drainage noted in Camilo bag, no clots noted. intake and output documented, meds given as documented. pt tolerating well. will continue to monitor.
--- NOTE | 2021-07-21 11:26 | PM.PNCARD ---
Subjective Subjective Date of Service: 07/21/21 <KEYANNA uBrdick - Last Filed: 07/21/21 15:56> 07/22/21 <Coleman Burnett MD - Last Filed: 07/22/21 15:30> Principal diagnosis: Dizziness, CVA, afib, chronic diastolic HF <KEYANNA Burdick - Last Filed: 07/21/21 15:56> Interval history: Cardiology follow up for HF, afib. Seen at 0820. Today he is observed sleeping, easily arousable but does fall back asleep. Has hx of DARLENE and tells me he has not been using the CPAP at night here. He is wearing O2 with cannula. Continues to have headache, feeling of dizziness. No new neurological symptoms. No respiratory difficulty. Denies cough. No chest pains, palpitation. Moves all extremites to command. Mcknight with CBI running. Schulter urine, no longer zack red. Less discomfort at mcknight site. <KEYANNA Burdick - Last Filed: 07/21/21 15:56> Review of Systems Review of Systems as above <KEYANNA Burdick - Last Filed: 07/21/21 15:56> Yes all other systems are reviewed and are negative <KEYANNA Burdick Last Filed: 07/21/21 15:56> Physical Exam Vital Signs: Last Vital Signs Temp 97 F 07/21/21 08:02 Pulse 68 07/21/21 08:02 Resp 10 L 07/21/21 08:02 BP 119/74 07/21/21 08:02 Pulse Ox 93 07/21/21 08:02 Oxygen Flow Rate 2 07/17/21 13:33 BMI result Body Mass Index 42.0 <KEYANNA Burdick - Last Filed: 07/21/21 15:56> Const Other: Morbidly obese, sleepy but arousable <KEYANNA Burdick Last Filed: 07/21/21 15:56> General: cooperative and no acute distress <KEYANNA Burdick Last Filed: 07/21/21 15:56> Orientation/consciousness: patient oriented x3 <KEYANNA Burdick Last Filed: 07/21/21 15:56> Neck Neck: Yes JVD <[facility] Man [facility] - Last Filed: 07/21/21 15:56> Resp Other: Lungs diminshed <[facility] Man [facility] - Last Filed: 07/21/21 15:56> Effort & Inspection: normal respiratory effort and not labored [facility] Last Filed: 07/21/21 15:56> Auscultation: clear to auscultation bilaterally, no crackles, no rales, no rhonchi and no wheezes <[facility] Man [facility] - Last Filed: 07/21/21 15:56> Cardio Jugular venous distension: JVD present <[facility] Man [facility] - Last Filed: 07/21/21 15:56> Rate: regular rate [facility] Last Filed: 07/21/21 15:56> Rhythm: abnormal rhythm irregularly irregular <[facility] Man [facility] Last Filed: 07/21/21 15:56> Heart sounds: S2 normal heart sound present [facility] Last Filed: 07/21/21 15:56> Peripheral pulses: Peripheral pulses 2+ throughout <[facility] Man [facility] Last Filed: 07/21/21 15:56> GI Other: obese, soft, nontender <[facility] Man [facility] Last Filed: 07/21/21 15:56> Inspection: Yes normal to inspection [facility] Last Filed: 07/21/21 15:56> Skin Other: venous stasis changes to lower legs [facility] - Last Filed: 07/21/21 15:56> Neuro General: patient oriented x3 [facility] Last Filed: 07/21/21 15:56> Extrem Other: Pitting edema to legs above knees to upper thighs <[facility] Man [facility] - Last Filed: 07/21/21 15:56> Objective Labs and Meds Result diagrams: : 07/22/21 05:11 07/22/21 05:11 <KEYANNA Burdick - Last Filed: 07/21/21 15:56> Lab results: Laboratory Results - last 24 hr 07/20/21 07/20/21 07/20/21 13:00 16:26 20:39 PT INR Sodium Potassium Chloride Carbon Dioxide Anion Gap BUN Creatinine Estim Creat Clear Calc Estimated GFR POC Glucose 152 H 135 H 196 H Random Glucose Calcium Magnesium B-Natriuretic Peptide 07/21/21 07/21/21 07/21/21 05:52 05:52 06:48 PT 39.6 H INR 3.4 H Sodium 136 Potassium 3.8 Chloride 93 L Carbon Dioxide 31 H Anion Gap 16 BUN 97 H Creatinine 2.43 H Estim Creat Clear Calc 46.2 Estimated GFR 27 POC Glucose Random Glucose 181 H D Calcium 8.2 L Magnesium 2.8 H B-Natriuretic Peptide 294 H 07/21/21 07:38 PT INR Sodium Potassium Chloride Carbon Dioxide Anion Gap BUN Creatinine Estim Creat Clear Calc Estimated GFR POC Glucose 165 H Random Glucose Calcium Magnesium B-Natriuretic Peptide <KEYANNA Burdick - Last Filed: 07/21/21 15:56> Progress Note: A&P Assessment and plan (1) Acute on chronic diastolic HF (heart failure): Status: Acute <KEYANNA Burdick - Last Filed: 07/21/21 15:56> Assessment and Plan: [facility] admit for acute on chronic systolic and diastolic HF from 06/26 - 07/13. Discharge summary reviewed and notes indicate he was discharged around 15 liters and discharge weight was 295lb. His discharge diuretics included Torsemide 100mg bid and Metolazone 5 mg daily.? Echo done at [facility] on 12/05/20 shows EF 50%, no regional WMA, mild , mod pulm HTN. He has a cardiomems PA sensor in place and [facility]. Cardiomems reading done 07/12/21 reported as PAD 30, SONAL 45.? [place] [facility] [place], [place], N/V on 07/17/21. CXR showed NAD. On exam he has had LE edema, which he states was present even upon discharge from [facility]. He has visable JVD. Able to obtain cardiomems reading 07/19: PAD 45, SONAL 64. His Torsemide was changed to Lasix 80mg IV bid and was given Metolazone 5mg on 07/19. Hospitalist has added daily K supplement. On exam today he continues to have pitting leg edema, mostly knee to upper thighs. Wearing O2 with nasal cannula. Denies feeling sob. Labs reviewed today, K 3.8, Cr 2.43, up from 2.08 yest. Continue Lasix at present - will Discuss with Dr Burnett. Will try to obtain Cardiomems reading today. Continue Strict I+O monitoring as able ( has CBI running) O2 supplement as needed for sat > 90%. Needs treatment for his DARLENE with CPAP use at night. Increase activity as tolerated. - neuro note reviewed and recommended PT/ OT. <KEYANNA Burdick - Last Filed: 07/21/21 15:56> (2) Atrial fibrillation: Status: Acute <KEYANNA Burdick - Last Filed: 07/21/21 15:56> Assessment and Plan: Hx of chronic afib.? Rates currently controlled. Home Dig placed on hold due to CKD. Continues on Metoprolol for heart rate control. On Warfarin for anticoagulation. INR goal 2-3. INR 3.4 today. - warfarin on hold. Had gross hematuria from mcknight insert, now has CBI running with pink tinged drainage. Continue anticoagulation when medically appropriate. Ongoing tele monitoring.? <KEYANNA Burdick - Last Filed: 07/21/21 15:56> (3) CVA (cerebral vascular accident): Status: Acute <KEYANNA Burdick - Last Filed: 07/21/21 15:56> Assessment and Plan: Acute posterior circulation CVA seen on MRI. Symptoms of headache, dizziness, spinning. No nausea at this time. Has been seen by Neurology. <KEYANNA Burdick - Last Filed: 07/21/21 15:56> (4) Gross hematuria: Status: Acute <KEYANNA Burdick - Last Filed: 07/21/21 15:56> Assessment and Plan: Patient seen and examined I would bedside on 07/21/2021. No shortness of breath orthopnea complained by the patient. Had bladder irrigation for hematuria which was getting up. Continue to have some headache and dizziness. c/w IV diuretics today and change to PO Toresmide tomorrow. Thank you for allowing me to participate in the care of your patient. Please feel free to contact me if you have any questions. <Coleman Burnett MD - Last Filed: 07/22/21 15:30> Fall Risk Details Current Medications: Current Medications Acetaminophen (Acetaminophen 325 Mg Tablet) 650 mg PO Q6H PRN PRN Reason: Pain, Mild (Pain Scale 1-3) Last Admin: 07/19/21 16:31 Dose: 650 mg Documented by: Al Hydroxide/Mg Hydroxide (Magnesium Hydrox/Alum Hydrox 30 Ml Oral.Susp) 30 ml PO Q4H PRN PRN Reason: heartbirun Last Admin: 07/19/21 00:23 Dose: 30 ml Documented by: Amitriptyline HCl (Amitriptyline Hcl 50 Mg Tablet) 150 mg PO BEDTIME [facility] Last Admin: 07/20/21 21:31 Dose: 150 mg Documented by: Amitriptyline HCl (Amitriptyline Hcl 50 Mg Tablet) 50 mg PO DAILY [facility] Last Admin: 07/21/21 10:15 Dose: 50 mg Documented by: Amlodipine Besylate (Amlodipine Besylate 10 Mg Tablet) 10 mg PO DAILY [facility]; Protocol Last Admin: 07/21/21 10:02 Dose: 10 mg Documented by: Ascorbic Acid (Ascorbic Acid 500 Mg Tablet) 500 mg PO DAILY [facility] Last Admin: 07/21/21 10:01 Dose: 500 mg Documented by: Atorvastatin Calcium (Atorvastatin Calcium 80 Mg Tablet) 80 mg PO DAILY [facility] Last Admin: 07/21/21 10:01 Dose: 80 mg Documented by: Bismuth Subsalicylate (Bismuth Subsalicylate Liquid 524 Mg/30 Ml Oral.Susp) 524 mg PO QID PRN PRN Reason: Indigestion Last Admin: 07/18/21 15:06 Dose: 524 mg Documented by: Dextrose (Dextrose 50 % 25 Gm/50 Ml Syringe) 25 gm IVPUSH Q15M PRN; Protocol PRN Reason: per Hypoglycemia Standing Ord. Docusate Sodium (Docusate Sodium 100 Mg Capsule) 100 mg PO DAILY PRN PRN Reason: Constipation Furosemide (Furosemide 100 Mg/10 Ml Vial) 80 mg IVPUSH BID@0900,1800 [facility]; Protocol Last Admin: 07/21/21 10:02 Dose: 80 mg Documented by: Glucose (Glucose Gel 15 Gm Gel..Gram.) 15 gm PO Q15M PRN; Protocol PRN Reason: per Hypoglycemia Standing Ord. Hydralazine HCl (Hydralazine Hcl 25 Mg Tablet) 25 mg PO TID [facility]; Protocol Last Admin: 07/21/21 10:00 Dose: 25 mg Documented by: Hydromorphone HCl (Hydromorphone Hcl 0.5 Mg/0.5 Ml Syringe) 0.5 mg IVPUSH Q4H PRN; Protocol PRN Reason: Pain, Severe (Pain Scale 7-10) Last Admin: 07/21/21 06:46 Dose: 0.5 mg Documented by: Insulin Human Lispro (Insulin Lispro 100 Unit/Ml 3 Ml Vial) 0 unit SUBCUT QIDACHS [facility]; Protocol Last Admin: 07/21/21 10:00 Dose: 4 unit Documented by: Isosorbide Mononitrate (Isosorbide Mononitrate 60 Mg Tab.Er.24h) 60 mg PO DAILY [facility]; Protocol Last Admin: 07/21/21 10:01 Dose: 60 mg Documented by: Metoprolol Succinate (Metoprolol Succinate Er 25 Mg Tab.Er.24h) 25 mg PO DAILY [facility]; Protocol Last Admin: 07/21/21 10:01 Dose: 25 mg Documented by: Ondansetron HCl (Ondansetron Hcl 4 Mg/2 Ml Vial) 4 mg IVPUSH Q8H PRN PRN Reason: Nausea and Vomiting Last Admin: 07/19/21 06:16 Dose: 4 mg Documented by: Pantoprazole Sodium (Pantoprazole Sodium 40 Mg/10 Ml Vial) 40 mg IVPUSH BID@0630,1630 [facility] Last Admin: 07/21/21 06:46 Dose: 40 mg Documented by: Pharmacy Consult (Consult Rx Perform Med Rec) 1 each MISCELLANE ONCE PRN PRN Reason: Consult order Potassium Chloride (Potassium Chloride Er 20 Meq Tab.Er.Prt) 20 meq PO DAILY [facility] Last Admin: 07/21/21 10:02 Dose: 20 meq Documented by: Sodium Chloride (0.9 % Sodium Chloride Flush 3 Ml Syringe) 3 ml IVFLUSH QSHIFT [facility] Last Admin: 07/21/21 10:19 Dose: 3 ml Documented by: Warfarin Sodium (Warfarin Sodium 2.5 Mg Tablet) 2.5 mg PO DAILY@1800 [facility] Last Admin: 07/19/21 19:35 Dose: 2.5 mg Documented by: <KEYANNA Burdick - Last Filed: 07/21/21 15:56> Time Spent With Patient Time: Total time spent is greater than 50% in coordination of care (as documented) at patient's floor/unit and/or counseling patient: 24 <KEYANNA Burdick - Last Filed: 07/21/21 15:56> Time with patient: 15 - 24 minutes <KEYANNA Burdick - Last Filed: 07/21/21 15:56> Progress Note: Quality Stroke Does the patient have a stroke diagnosis?: No <KEYANNA Burdick - Last Filed: 07/21/21 15:56> Procedures Date of Service Date of Service: 07/21/21 <KEYANNA Burdick - Last Filed: 07/21/21 15:56>
[2021-07-21 12:03] LABS: Glucose, Whole Blood 173 mg/dL (60-115)
--- NOTE | 2021-07-21 13:44 | PC.NURSE ---
Francoise DURANlinecasting machine keyboard operator at [facility] called for update on pt. permission given by pt to speak with Francoise. pt updated on conversation.
--- NOTE | 2021-07-21 14:03 | HO.PM.IMPN ---
Subjective Subjective Date of Service: 07/22/21 Interval History: Patient is somnolent easily arousable, complaining of persistent mild headache and dizziness not resolved since admission, denies weakness numbness speech impairment no chest pain, no palpitation no other acute issues overnight for Camilo catheter with light pink urine CBI running. Review of Systems Review of Systems: Yes all other systems are reviewed and are negative Physical Exam Vital Signs: Vital Signs: Last Vital Signs Temp 97 F 07/21/21 08:02 Pulse 60 07/21/21 12:31 Resp 10 L 07/21/21 12:31 BP 99/63 07/21/21 12:31 Pulse Ox 97 07/21/21 12:31 Oxygen Flow Rate 2 07/17/21 13:33 BMI result Body Mass Index 42.0 Gen: Somnolent but arousable, in no acute distress HEENT: sclera anicteric, moist mucus membranes Neck: supple, JVD present Lungs: diminished, no acute distress, no wheeze no rhonchi Heart: irregularly irregular Abd: soft, non-tender, non-distended, obese : Camilo with light pink urine Ext: venous stasis hyperpigmentation of legs, pitting edema of legs bilaterally Skin: warm/well-perfused Neuro: alert and oriented x3, no pronator drift, no motor deficit Psych: appropriate affect ? Objective Data Active Medications Acetaminophen (Acetaminophen 325 Mg Tablet) 650 mg PO Q6H PRN PRN Reason: Pain, Mild (Pain Scale 1-3) Last Admin: 07/19/21 16:31 Dose: 650 mg Documented by: REENA Al Hydroxide/Mg Hydroxide (Magnesium Hydrox/Alum Hydrox 30 Ml Oral.Susp) 30 ml PO Q4H PRN PRN Reason: heartbirun Last Admin: 07/19/21 00:23 Dose: 30 ml Documented by: GIL Amitriptyline HCl (Amitriptyline Hcl 50 Mg Tablet) 150 mg PO BEDTIME [facility] Last Admin: 07/20/21 21:31 Dose: 150 mg Documented by: TISH Amitriptyline HCl (Amitriptyline Hcl 50 Mg Tablet) 50 mg PO DAILY [facility] Last Admin: 07/21/21 10:15 Dose: 50 mg Documented by: MAXIMILIAN Amlodipine Besylate (Amlodipine Besylate 10 Mg Tablet) 10 mg PO DAILY [facility]; Protocol Last Admin: 07/21/21 10:02 Dose: 10 mg Documented by: MAXIMILIAN Ascorbic Acid (Ascorbic Acid 500 Mg Tablet) 500 mg PO DAILY [facility] Last Admin: 07/21/21 10:01 Dose: 500 mg Documented by: MAXIMILIAN Atorvastatin Calcium (Atorvastatin Calcium 80 Mg Tablet) 80 mg PO DAILY [facility] Last Admin: 07/21/21 10:01 Dose: 80 mg Documented by: MAXIMILIAN Bismuth Subsalicylate (Bismuth Subsalicylate Liquid 524 Mg/30 Ml Oral.Susp) 524 mg PO QID PRN PRN Reason: Indigestion Last Admin: 07/18/21 15:06 Dose: 524 mg Documented by: LORE Dextrose (Dextrose 50 % 25 Gm/50 Ml Syringe) 25 gm IVPUSH Q15M PRN; Protocol PRN Reason: per Hypoglycemia Standing Ord. Docusate Sodium (Docusate Sodium 100 Mg Capsule) 100 mg PO DAILY PRN PRN Reason: Constipation Furosemide (Furosemide 100 Mg/10 Ml Vial) 80 mg IVPUSH BID@0900,1800 [facility]; Protocol Last Admin: 07/21/21 10:02 Dose: 80 mg Documented by: MAXIMILIAN Glucose (Glucose Gel 15 Gm Gel..Gram.) 15 gm PO Q15M PRN; Protocol PRN Reason: per Hypoglycemia Standing Ord. Hydralazine HCl (Hydralazine Hcl 25 Mg Tablet) 25 mg PO TID [facility]; Protocol Last Admin: 07/21/21 10:00 Dose: 25 mg Documented by: MAXIMILIAN Hydromorphone HCl (Hydromorphone Hcl 0.5 Mg/0.5 Ml Syringe) 0.5 mg IVPUSH Q4H PRN; Protocol PRN Reason: Pain, Severe (Pain Scale 7-10) Last Admin: 07/21/21 06:46 Dose: 0.5 mg Documented by: MESHA Insulin Human Lispro (Insulin Lispro 100 Unit/Ml 3 Ml Vial) 0 unit SUBCUT QIDACHS [facility]; Protocol Last Admin: 07/21/21 12:39 Dose: 4 unit Documented by: MAXIMILIAN Isosorbide Mononitrate (Isosorbide Mononitrate 60 Mg Tab.Er.24h) 60 mg PO DAILY [facility]; Protocol Last Admin: 07/21/21 10:01 Dose: 60 mg Documented by: MAXIMILIAN Metoprolol Succinate (Metoprolol Succinate Er 25 Mg Tab.Er.24h) 25 mg PO DAILY [facility]; Protocol Last Admin: 07/21/21 10:01 Dose: 25 mg Documented by: MAXIMILIAN Ondansetron HCl (Ondansetron Hcl 4 Mg/2 Ml Vial) 4 mg IVPUSH Q8H PRN PRN Reason: Nausea and Vomiting Last Admin: 07/19/21 06:16 Dose: 4 mg Documented by: GIL Pantoprazole Sodium (Pantoprazole Sodium 40 Mg/10 Ml Vial) 40 mg IVPUSH BID@0630,1630 [facility] Last Admin: 07/21/21 06:46 Dose: 40 mg Documented by: MESHA Pharmacy Consult (Consult Rx Perform Med Rec) 1 each MISCELLANE ONCE PRN PRN Reason: Consult order Potassium Chloride (Potassium Chloride Er 20 Meq Tab.Er.Prt) 20 meq PO DAILY [facility] Last Admin: 07/21/21 10:02 Dose: 20 meq Documented by: MAXIMILIAN Sodium Chloride (0.9 % Sodium Chloride Flush 3 Ml Syringe) 3 ml IVFLUSH QSHIFT [facility] Last Admin: 07/21/21 10:19 Dose: 3 ml Documented by: MAXIMILIAN Warfarin Sodium (Warfarin Sodium 2.5 Mg Tablet) 2.5 mg PO DAILY@1800 [facility] Last Admin: 07/19/21 19:35 Dose: 2.5 mg Documented by: REENA Labs CBC & Chem 7: 07/22/21 05:11 07/22/21 05:11 Labs: Laboratory Results - last 24 hr 07/20/21 07/20/21 07/21/21 16:26 20:39 05:52 PT INR Anion Gap 16 Estim Creat Clear Calc 46.2 Estimated GFR 27 POC Glucose 135 H 196 H Random Glucose 181 H D Calcium 8.2 L Magnesium 2.8 H B-Natriuretic Peptide 07/21/21 07/21/21 07/21/21 05:52 06:48 07:38 PT 39.6 H INR 3.4 H Anion Gap Estim Creat Clear Calc Estimated GFR POC Glucose 165 H Random Glucose Calcium Magnesium B-Natriuretic Peptide 294 H 07/21/21 11:59 PT INR Anion Gap Estim Creat Clear Calc Estimated GFR POC Glucose 173 H Random Glucose Calcium Magnesium B-Natriuretic Peptide Assessment and Plan (1) Gross hematuria: Status: Acute (2) Acute on chronic diastolic HF (heart failure): Status: Acute (3) CVA (cerebral vascular accident): Status: Acute (4) Atrial fibrillation: Status: Acute (5) Dizziness: Status: Acute (6) Dizziness: Status: Acute (7) Current use of anticoagulant therapy: Status: Acute Assessment and Plan: 61yo M with HTN, HFpEF with cardioMEMS device in place, HLD, CAD, DM2, DARLENE, severe pHTN, AF on warfarin, CKD3-4, hx CVA, polycythemic vera, chronic hypoxic respiratory failure on 2L recent admission to [facility] for CHF exacerbation presenting with nausea/vomiting, dizziness # acute pontine CVA Persistent dizziness and headache Neuro consulted, continue statin, start clopidogrel to replace ASA once hematuria resolves [pt was taking ASA prior to admission] Being followed by Physical therapy due to pain patient did not participate in physical therapy physical therapy continue to recommend home with PT # hypoK - repleted # nausea/vomiting with 1 episode blood-streaked vomitus - ?Brinda-Reyes tear.? has not recurred - on IV Protonix, will switch to oral PPI - follow H+H # hematuria - likely due to traumatic Camilo placement; hold off on starting clopdigrel, continue CBI,, hold warfarin keep INR around 2.5 , seen by Dr. Mondragon he recommend to hold anticoagulation that will likely clear urine # permanent AF - continue metoprolol; d/c digoxin due to CKD - hold warfarin, INR 3.4, follow PT INR closely. # acute/chronic HFpEF - admitted to [facility] 06/26/21-07/13/21, diuresed 15L, discharged at 295 lb on torsemide 100mg bid + metolazone 5 mg daily - TTE 07/07/20 LVEF 50%, no RWMA, mild , mod pulm HTN - CardioMEMS 07/12/21 PAD 30, SONAL 45; yesterday PAD 45, SONAL 64; repeat reading pending - on IV furosemide 80 mg b.i.d. creatinine trending up follow BMP and will discuss continue diuresis with Cardiology # leukocytosis - like reactive from vomiting? WBC trending down, no sign of infection. # acute/chronic hypoxic respiratory failure - wean O2 as tolerated, on 2L at home # DM2 with hypyerglycemia, A1c 8.6 - blood sugar stable, on correction-dose lispro.? on U-500 + Trulicity at home.? Continue diabetic diet and insulin sliding scale. # CAD - episode of chest pain resolved, troponins flat - continue statin, metoprolol, Imdur # acute on CKD4 - creatinine trending up,avoid nephrotoxins, avoid hypotension consult Nephrology # HTN - soft blood pressure on metoprolol, hydralazine, and amlodipine, will DC hydralazine, follow BP closely # morbid obesity - outpt bariatrics evaluation can be considered # DARLENE - noted to be somnolent today, did not use CPAP last night, spoke with respiratory therapist and patient to use CPAP to and for naps # VTE ppx - warfarin INR 3.4 hold Coumadin # dispo Being followed by Physical therapy - plan eventual home with PT Quality Stroke Does the patient have a stroke diagnosis?: No VTE Prior VTE?: No VTE Risk Level:: Medical - moderate - high VTE Device Contraindication: N/A - Device Ordered VTE Drug Contraindication: Treatment Not Indicated
[2021-07-21 16:18] LABS: Glucose, Whole Blood 183 mg/dL (60-115)
[2021-07-21] MEDS: Omeprazole 40 MG CAPSULE.DR PO (16:45)
[2021-07-21] MEDS: oxyCODONE HCl Immed Release 5 MG TABLET PO (18:28)
[2021-07-21 20:46] LABS: Glucose, Whole Blood 173 mg/dL (60-115)
[2021-07-21] MEDS: Amitriptyline HCl 50 MG TABLET 150 MG PO (21:03)
[2021-07-22] VITALS (10 sets, daily range): BP systolic 100–124; BP diastolic 50–79; PULSE 60–88; RESP 16–20; TEMP 36.2–36.4; O2SAT 90–97
[2021-07-22] MEDS: 0.9 % Sodium Chloride Flush 3 ML SYRINGE IVFLUSH ×4 (01:09→21:57)
[2021-07-22 05:45] LABS: Hematocrit 38.6 % (42.0-52.0); Hemoglobin 12.5 g/dl (14.0-18.0); Mean Corpuscular HGB Conc 32.4 g/dl (31.0-36.0); Mean Corpuscular Hemoglobin 28.5 pg (27.0-33.0); Mean Corpuscular Volume 87.9 fL (80.0-98.0); Mean Platelet Volume 9.9 fL (9.4-12.4); Platelet Count 215 X10*3/uL (160-400); Red Blood Count 4.39 X10*6/uL (4.60-5.80); Red Cell Distribution Width 16.3 % (11.0-16.0); White Blood Count 9.2 X10*3/uL (4.8-10.8)
[2021-07-22 06:10] LABS: INTERNATIONAL NORM RATIO 3.9 (0.9-1.1); Prothrombin Time 45.1 SEC (9.9-13.0)
[2021-07-22 06:16] LABS: Anion Gap 12 (12-20); Blood Urea Nitrogen 102 mg/dL (9-16); Calcium 8.2 mg/dL (8.4-10.2); Carbon Dioxide 34 mmol/L (22-29); Chloride 93 mmol/L (96-108); Creatinine Clr Calc Pharmacy 47.3; Estimated Glomerular Filt Rate 28; Glucose Random 140 mg/dL (60-115); Potassium 3.6 mmol/L (3.3-5.1); Sodium 135 mmol/L (135-145)
--- NOTE | 2021-07-22 06:30 | PC.NURSE ---
PERDUE CATHETER NOTED TO BE DRAINING CEM COLORED URINE AT 0000 ROUNDS. CBI HAD BEEN STOPPED PREVIOUS SHIFT AND RN REPORT STATED LEAVE CLAMPED UNLESS BLOODY URINE RETURNS. AROUND 0500 PERDUE BAG NOTED NOW WITH BLOOD COLORED URINE IT HAD BEEN EMPTIED AT 0000 FOR COLOR INSPECTION THRU NIGHT. PT DENIED BLADDER PAIN OR PRESSURE, IRRIGATED WITH NO RESISTANCE AND NO SHREDS OR CLOTS. CBI RESTARTED APRROX., 0500, AND FIRST BAG WITH BLOODY URINE, THEN BLOOD TINGED, THEN DARK CEM. BAG #2 DRAINING YELLOW URINE AND PT WITH NO DISCOMFORTS. WILL REPORT OFF AND CONTINUE TO MONITOR. TRUE URINE OUTPUT 500ML
[2021-07-22 07:36] LABS: Glucose, Whole Blood 130 mg/dL (60-115)
[2021-07-22] MEDS: Torsemide 20 MG TABLET 100 MG PO ×2 (07:58→16:56)
[2021-07-22] MEDS: amLODIPine Besylate 5 MG TABLET PO (07:59)
[2021-07-22] MEDS: Atorvastatin Calcium 80 MG TABLET PO (07:59)
[2021-07-22] MEDS: Metoprolol Succinate ER 25 MG TAB.ER.24H PO (07:59)
[2021-07-22] MEDS: Ascorbic Acid 500 MG TABLET PO (07:59)
[2021-07-22] MEDS: Isosorbide Mononitrate 60 MG TAB.ER.24H PO (07:59)
[2021-07-22] MEDS: Potassium Chloride ER 20 MEQ TAB.ER.PRT PO (07:59)
[2021-07-22] MEDS: Amitriptyline HCl 50 MG TABLET PO (07:59)
[2021-07-22] MEDS: oxyCODONE HCl Immed Release 5 MG TABLET PO ×2 (10:24→17:00)
--- NOTE | 2021-07-22 11:40 | PM.PNCARD ---
Subjective Subjective Date of Service: 07/22/21 <KEYANNA Burdick - Last Filed: 07/22/21 11:53> 07/22/21 <Coleman Burnett MD - Last Filed: 07/22/21 15:32> Principal diagnosis: Dizziness, CVA, afib, chronic diastolic HF <KEYANNA Burdick - Last Filed: 07/22/21 11:53> Interval history: Cardiology follow up with the above. Seen at 0930. Today he reports that he is finally starting to feel better. His acute headache has resolved and it is back to his usual chronic headache. He no longer has dizziness while laying in bed. He is more alert today than yesterday. Oriented and follows commands with all extremties. States he has not been able to participate in physical therapy due to pain from mcknight catheter when he moves. CBI no longer infusing. Urine more clear, no zack hematuria. No chest pains, sob, palpitations. Still has the same pitting edema in his legs. Has generalized weakness. Tells me he will not go to Rehab at time of discharge - he wants to go home and work on his own exercises. <KEYANNA Burdick - Last Filed: 07/22/21 11:53> Review of Systems Review of Systems as above <KEYANNA Burdick - Last Filed: 07/22/21 11:53> Yes all other systems are reviewed and are negative <KEYANNA Burdick - Last Filed: 07/22/21 11:53> Physical Exam Vital Signs: Last Vital Signs Temp 97.2 F 07/22/21 08:00 Pulse 62 07/22/21 08:00 Resp 18 07/22/21 08:00 BP 116/69 07/22/21 08:00 Pulse Ox 94 07/22/21 08:00 Oxygen Flow Rate 3 07/22/21 04:00 BMI result Body Mass Index 42.0 <KEYANNA Burdick Last Filed: 07/22/21 11:53> Const Other: morbidly obese <KEYANNA Burdick Last Filed: 07/22/21 11:53> General: cooperative, no acute distress, alert and awake <ROBERTO BurdickC - Last Filed: 07/22/21 11:53> Orientation/consciousness: patient oriented x3 <ROBERTO Burdick - Last Filed: 07/22/21 11:53> Neck Neck: Yes JVD <Hilda Conway NP - Last Filed: 07/22/21 11:53> Resp Effort & Inspection: normal respiratory effort, able to speak in complete sentences and not labored <Hilda Conway NP - Last Filed: 07/22/21 11:53> Auscultation: clear to auscultation bilaterally, no crackles, no rales, no rhonchi and no wheezes <Hilda Conway NP - Last Filed: 07/22/21 11:53> Cardio Jugular venous distension: JVD present <Hilda Conway NP - Last Filed: 07/22/21 11:53> Rate: regular rate <Hilda Conway NP - Last Filed: 07/22/21 11:53> Rhythm: abnormal rhythm irregularly irregular <Hilda Conway NP - Last Filed: 07/22/21 11:53> Heart sounds: S1 normal heart sound present and S2 normal heart sound present <Hilda Conway NP - Last Filed: 07/22/21 11:53> Peripheral pulses: Peripheral pulses 2+ throughout <Hilda Conway NP - Last Filed: 07/22/21 11:53> GI Inspection: Yes normal to inspection <Hilda Conway NP- - Last Filed: 07/22/21 11:53> Neuro General: patient oriented x3 <Hilda Conway NP - Last Filed: 07/22/21 11:53> Extrem Other: pitting edema in legs - mostly from knee to upper thighs - no signficant changes this admit. <Hilda Conway STORE CONSULTANT-C - Last Filed: 07/22/21 11:53> Objective Labs and Meds Result diagrams: : 07/22/21 05:11 07/22/21 05:11 <Hilda Conway STORE CONSULTANT-C - Last Filed: 07/22/21 11:53> Lab results: Laboratory Results - last 24 hr 07/21/21 07/21/21 07/21/21 11:59 16:14 20:40 WBC RBC Hgb Hct MCV MCH MCHC RDW Plt Count MPV Absolute Nucleated RBC Nucleated RBC % (auto) PT INR Sodium Potassium Chloride Carbon Dioxide Anion Gap BUN Creatinine Estim Creat Clear Calc Estimated GFR POC Glucose 173 H 183 H 173 H Random Glucose Calcium 07/22/21 07/22/21 07/22/21 05:11 05:11 05:11 WBC 9.2 RBC 4.39 L Hgb 12.5 L Hct 38.6 L MCV 87.9 MCH 28.5 MCHC 32.4 RDW 16.3 H Plt Count 215 MPV 9.9 Absolute Nucleated RBC 0.000 Nucleated RBC % (auto) 0.0 PT 45.1 H INR 3.9 H Sodium 135 Potassium 3.6 Chloride 93 L Carbon Dioxide 34 H Anion Gap 12 BUN 102 H Creatinine 2.37 H Estim Creat Clear Calc 47.3 Estimated GFR 28 POC Glucose Random Glucose 140 H Calcium 8.2 L 07/22/21 07:22 WBC RBC Hgb Hct MCV MCH MCHC RDW Plt Count MPV Absolute Nucleated RBC Nucleated RBC % (auto) PT INR Sodium Potassium Chloride Carbon Dioxide Anion Gap BUN Creatinine Estim Creat Clear Calc Estimated GFR POC Glucose 130 H Random Glucose Calcium <KEYANNA Burdick - Last Filed: 07/22/21 11:53> Progress Note: A&P Assessment and plan (1) Acute on chronic diastolic HF (heart failure): Status: Acute <KEYANNA Burdick - Last Filed: 07/22/21 11:53> Assessment and Plan: [facility] admit for acute on chronic systolic and diastolic HF from 06/26 - 07/13. Discharge summary reviewed and notes indicate he was discharged around 15 liters and discharge weight was 295lb. His discharge diuretics included Torsemide 100mg bid and Metolazone 5 mg daily.? Echo done at [facility] on 12/05/20 shows EF 50%, no regional WMA, mild , mod pulm HTN. He has a cardiomems PA sensor in place and [facility]. Cardiomems reading done 07/12/21 reported as PAD 30, SONAL 45.? He presented to [facility] with dizziness, HAMILTON, N/V on 07/17/21.? CXR showed NAD. On exam he has had LE edema, which he states was present even upon discharge from [facility]. He has visable JVD. Able to obtain cardiomems reading 07/19: PAD 45, SONAL 64. His Torsemide was changed to Lasix 80mg IV bid and was given Metolazone 5mg on 07/19. Hospitalist has added daily K supplement. His Cr 2.43 yesterday, up from 2.08 and his Lasix was changed back to usual home Torsemide. On exam today he continues to have same pitting leg edema, mostly knee to upper thighs. Wearing O2 with nasal cannula. Denies feeling sob. Labs reviewed today, K 3.6, Cr 2.37. Most likely inaccurate fluid balance as he did have CBI infusion yesterday. Notes do indicate he is Neg 5 liters since admit. Will try again to obtain Cardiomems reading today. Continue Strict I+O monitoring. O2 supplement as needed for sat > 90%.? Needs treatment for his DARLNEE with CPAP use at night. Increase activity as tolerated. <KEYANNA Burdick - Last Filed: 07/22/21 11:53> (2) CVA (cerebral vascular accident): Status: Acute <KEYANNA Burdick - Last Filed: 07/22/21 11:53> Assessment and Plan: Acute posterior circulation CVA seen on MRI. Symptoms of headache, dizziness, spinning, nausea - now much improved. States he is back to having his usual chronic HAMILTON, acute HAMILTON has resolved. Has been seen by Neurology with recommendation for PT/ OT. <KEYANNA Burdick - Last Filed: 07/22/21 11:53> (3) Atrial fibrillation: Status: Acute <KEYANNA Burdick - Last Filed: 07/22/21 11:53> Assessment and Plan: Hx of chronic afib.? Rates currently controlled. Home Dig placed on hold due to CKD. Continues on Metoprolol for heart rate control. On Warfarin for anticoagulation. INR goal 2-3. INR 3.9 today. - warfarin on hold.? Had gross hematuria from mcknight insert, CBI had been used, now off. Hematuria resolving. Plan for restart of anticoagulation when medically appropriate. Ongoing tele <KEYANNA Burdick - Last Filed: 07/22/21 11:53> (4) Gross hematuria: Status: Acute <KEYANNA Burdick - Last Filed: 07/22/21 11:53> Assessment and Plan: Patient seen and examined at bedside on 07/22/2021. Clinically improving. Back on p.o. torsemide. Bladder irrigation is improved hematuria. Going forward I think he should be on Coumadin and Plavix given the fact that he had stroke while taking aspirin and Coumadin. He clearly had a posterior circulation stroke again which is the likely reason his dizziness was worse. His dizziness has improved with this stage. He has chronic headaches since his last stroke. Follow-up with [facility]. Thank you for allowing me to participate in the care of your patient. Please feel free to contact me if you have any questions. <Coleman Burnett MD - Last Filed: 07/22/21 15:32> Fall Risk Details Current Medications: Current Medications Acetaminophen (Acetaminophen 325 Mg Tablet) 650 mg PO Q6H PRN PRN Reason: Pain, Mild (Pain Scale 1-3) Last Admin: 07/19/21 16:31 Dose: 650 mg Documented by: Al Hydroxide/Mg Hydroxide (Magnesium Hydrox/Alum Hydrox 30 Ml Oral.Susp) 30 ml PO Q4H PRN PRN Reason: heartbirun Last Admin: 07/19/21 00:23 Dose: 30 ml Documented by: Amitriptyline HCl (Amitriptyline Hcl 50 Mg Tablet) 150 mg PO BEDTIME [facility] Last Admin: 07/21/21 21:03 Dose: 150 mg Documented by: Amitriptyline HCl (Amitriptyline Hcl 50 Mg Tablet) 50 mg PO DAILY [facility] Last Admin: 07/22/21 07:59 Dose: 50 mg Documented by: Amlodipine Besylate (Amlodipine Besylate 5 Mg Tablet) 5 mg PO DAILY [facility]; Protocol Last Admin: 07/22/21 07:59 Dose: 5 mg Documented by: Ascorbic Acid (Ascorbic Acid 500 Mg Tablet) 500 mg PO DAILY [facility] Last Admin: 07/22/21 07:59 Dose: 500 mg Documented by: Atorvastatin Calcium (Atorvastatin Calcium 80 Mg Tablet) 80 mg PO DAILY [facility] Last Admin: 07/22/21 07:59 Dose: 80 mg Documented by: Bismuth Subsalicylate (Bismuth Subsalicylate Liquid 524 Mg/30 Ml Oral.Susp) 524 mg PO QID PRN PRN Reason: Indigestion Last Admin: 07/18/21 15:06 Dose: 524 mg Documented by: Dextrose (Dextrose 50 % 25 Gm/50 Ml Syringe) 25 gm IVPUSH Q15M PRN; Protocol PRN Reason: per Hypoglycemia Standing Ord. Docusate Sodium (Docusate Sodium 100 Mg Capsule) 100 mg PO DAILY PRN PRN Reason: Constipation Glucose (Glucose Gel 15 Gm Gel..Gram.) 15 gm PO Q15M PRN; Protocol PRN Reason: per Hypoglycemia Standing Ord. Insulin Human Lispro (Insulin Lispro 100 Unit/Ml 3 Ml Vial) 0 unit SUBCUT QIDACHS [facility]; Protocol Last Admin: 07/22/21 07:46 Dose: Not Given Documented by: Isosorbide Mononitrate (Isosorbide Mononitrate 60 Mg Tab.Er.24h) 60 mg PO DAILY [facility]; Protocol Last Admin: 07/22/21 07:59 Dose: 60 mg Documented by: Metoprolol Succinate (Metoprolol Succinate Er 25 Mg Tab.Er.24h) 25 mg PO DAILY [facility]; Protocol Last Admin: 07/22/21 07:59 Dose: 25 mg Documented by: Omeprazole (Omeprazole 40 Mg Capsule.Dr) 40 mg PO BID@0630,1630 [facility] Last Admin: 07/22/21 06:46 Dose: Not Given Documented by: Ondansetron HCl (Ondansetron Hcl 4 Mg/2 Ml Vial) 4 mg IVPUSH Q8H PRN PRN Reason: Nausea and Vomiting Last Admin: 07/19/21 06:16 Dose: 4 mg Documented by: Oxycodone HCl (Oxycodone Hcl Immed Release 5 Mg Tablet) 5 mg PO Q4H PRN PRN Reason: Pain, Moderate (Pain Scale 4-6 Last Admin: 07/22/21 10:24 Dose: 5 mg Documented by: Pharmacy Consult (Consult Rx Perform Med Rec) 1 each MISCELLANE ONCE PRN PRN Reason: Consult order Potassium Chloride (Potassium Chloride Er 20 Meq Tab.Er.Prt) 20 meq PO DAILY [facility] Last Admin: 07/22/21 07:59 Dose: 20 meq Documented by: Sodium Chloride (0.9 % Sodium Chloride Flush 3 Ml Syringe) 3 ml IVFLUSH QSHIFT [facility] Last Admin: 07/22/21 08:00 Dose: 3 ml Documented by: Torsemide (Torsemide 20 Mg Tablet) 100 mg PO BID@0800,1500 [facility]; Protocol Last Admin: 07/22/21 07:58 Dose: 100 mg Documented by: <KEYANNA Burdick - Last Filed: 07/22/21 11:53> Time Spent With Patient Time: Total time spent is greater than 50% in coordination of care (as documented) at patient's floor/unit and/or counseling patient: 24 <KEYANNA Burdick - Last Filed: 07/22/21 11:53> Time with patient: 15 - 24 minutes <KEYANNA Burdick - Last Filed: 07/22/21 11:53> Progress Note: Quality Stroke Does the patient have a stroke diagnosis?: No <KEYANNA Burdick - Last Filed: 07/22/21 11:53> Procedures Date of Service Date of Service: 07/22/21 <KEYANNA Burdick - Last Filed: 07/22/21 11:53>
[2021-07-22 12:13] LABS: Glucose, Whole Blood 166 mg/dL (60-115)
[2021-07-22] MEDS: Insulin Lispro 100 UNIT/ML 3 ML VIAL SUBCUT ×3 (12:30→21:57)
--- NOTE | 2021-07-22 14:14 | P.PNIM_ITS ---
Subjective Subjective Date of Service: 07/22/21 Interval History: Awake alert this morning headache and dizziness resolved feeling significantly better, refused physical therapy due to discomfort related to Camilo catheter, no other acute events overnight. Review of Systems Review of Systems: Yes all other systems are reviewed and are negative Physical Exam Vital Signs: Vital Signs: Last Vital Signs Temp 97.2 F 07/22/21 12:00 Pulse 78 07/22/21 12:00 Resp 18 07/22/21 12:00 BP 124/79 07/22/21 12:00 Pulse Ox 97 07/22/21 12:00 Oxygen Flow Rate 3 07/22/21 04:00 BMI result Body Mass Index 42.0 Gen:? Awake alert,in no acute distress HEENT: sclera anicteric, moist mucus membranes Neck: supple, JVD present Lungs: diminished, no acute distress, no wheeze no rhonchi Heart: irregularly irregular Abd: soft, non-tender, non-distended, obese : Camilo with light pink urine Ext: venous stasis hyperpigmentation of legs,mild edema bilaterally Skin: warm/well-perfused Neuro: alert and oriented x3, no pronator drift, no motor deficit Psych: appropriate affect ? Objective Data Active Medications Acetaminophen (Acetaminophen 325 Mg Tablet) 650 mg PO Q6H PRN PRN Reason: Pain, Mild (Pain Scale 1-3) Last Admin: 07/19/21 16:31 Dose: 650 mg Documented by: REENA Al Hydroxide/Mg Hydroxide (Magnesium Hydrox/Alum Hydrox 30 Ml Oral.Susp) 30 ml PO Q4H PRN PRN Reason: heartbirun Last Admin: 07/19/21 00:23 Dose: 30 ml Documented by: GIL Amitriptyline HCl (Amitriptyline Hcl 50 Mg Tablet) 150 mg PO BEDTIME [facility] Last Admin: 07/21/21 21:03 Dose: 150 mg Documented by: MOMO Amitriptyline HCl (Amitriptyline Hcl 50 Mg Tablet) 50 mg PO DAILY [facility] Last Admin: 07/22/21 07:59 Dose: 50 mg Documented by: JAYLYN Amlodipine Besylate (Amlodipine Besylate 5 Mg Tablet) 5 mg PO DAILY [facility]; Protocol Last Admin: 07/22/21 07:59 Dose: 5 mg Documented by: JAYLYN Ascorbic Acid (Ascorbic Acid 500 Mg Tablet) 500 mg PO DAILY [facility] Last Admin: 07/22/21 07:59 Dose: 500 mg Documented by: JAYLYN Atorvastatin Calcium (Atorvastatin Calcium 80 Mg Tablet) 80 mg PO DAILY [facility] Last Admin: 07/22/21 07:59 Dose: 80 mg Documented by: JAYLYN Bismuth Subsalicylate (Bismuth Subsalicylate Liquid 524 Mg/30 Ml Oral.Susp) 524 mg PO QID PRN PRN Reason: Indigestion Last Admin: 07/18/21 15:06 Dose: 524 mg Documented by: LORE Dextrose (Dextrose 50 % 25 Gm/50 Ml Syringe) 25 gm IVPUSH Q15M PRN; Protocol PRN Reason: per Hypoglycemia Standing Ord. Docusate Sodium (Docusate Sodium 100 Mg Capsule) 100 mg PO DAILY PRN PRN Reason: Constipation Glucose (Glucose Gel 15 Gm Gel..Gram.) 15 gm PO Q15M PRN; Protocol PRN Reason: per Hypoglycemia Standing Ord. Insulin Human Lispro (Insulin Lispro 100 Unit/Ml 3 Ml Vial) 0 unit SUBCUT QIDACHS [facility]; Protocol Last Admin: 07/22/21 12:30 Dose: 2 unit Documented by: JAYLYN Isosorbide Mononitrate (Isosorbide Mononitrate 60 Mg Tab.Er.24h) 60 mg PO DAILY [facility]; Protocol Last Admin: 07/22/21 07:59 Dose: 60 mg Documented by: JAYLYN Metoprolol Succinate (Metoprolol Succinate Er 25 Mg Tab.Er.24h) 25 mg PO DAILY [facility]; Protocol Last Admin: 07/22/21 07:59 Dose: 25 mg Documented by: JAYLYN Omeprazole (Omeprazole 40 Mg Capsule.Dr) 40 mg PO BID@0630,1630 [facility] Last Admin: 07/22/21 06:46 Dose: Not Given Documented by: KIAN Non-Admin Reason: Patient Refused Ondansetron HCl (Ondansetron Hcl 4 Mg/2 Ml Vial) 4 mg IVPUSH Q8H PRN PRN Reason: Nausea and Vomiting Last Admin: 07/19/21 06:16 Dose: 4 mg Documented by: GIL Oxycodone HCl (Oxycodone Hcl Immed Release 5 Mg Tablet) 5 mg PO Q4H PRN PRN Reason: Pain, Moderate (Pain Scale 4-6 Last Admin: 07/22/21 10:24 Dose: 5 mg Documented by: ROBERT Pharmacy Consult (Consult Rx Perform Med Rec) 1 each MISCELLANE ONCE PRN PRN Reason: Consult order Potassium Chloride (Potassium Chloride Er 20 Meq Tab.Er.Prt) 20 meq PO DAILY [facility] Last Admin: 07/22/21 07:59 Dose: 20 meq Documented by: JAYLYN Sodium Chloride (0.9 % Sodium Chloride Flush 3 Ml Syringe) 3 ml IVFLUSH QSHIFT [facility] Last Admin: 07/22/21 08:00 Dose: 3 ml Documented by: JAYLYN Torsemide (Torsemide 20 Mg Tablet) 100 mg PO BID@0800,1500 [facility]; Protocol Last Admin: 07/22/21 07:58 Dose: 100 mg Documented by: JAYLYN Labs CBC & Chem 7: 07/22/21 05:11 07/22/21 05:11 Labs: Laboratory Results - last 24 hr 07/21/21 07/21/21 07/22/21 16:14 20:40 05:11 MCV MCH MCHC RDW Plt Count MPV Absolute Nucleated RBC Nucleated RBC % (auto) PT 45.1 H INR 3.9 H Anion Gap Estim Creat Clear Calc Estimated GFR POC Glucose 183 H 173 H Random Glucose Calcium 07/22/21 07/22/21 07/22/21 05:11 05:11 07:22 MCV 87.9 MCH 28.5 MCHC 32.4 RDW 16.3 H Plt Count 215 MPV 9.9 Absolute Nucleated RBC 0.000 Nucleated RBC % (auto) 0.0 PT INR Anion Gap 12 Estim Creat Clear Calc 47.3 Estimated GFR 28 POC Glucose 130 H Random Glucose 140 H Calcium 8.2 L 07/22/21 11:19 MCV MCH MCHC RDW Plt Count MPV Absolute Nucleated RBC Nucleated RBC % (auto) PT INR Anion Gap Estim Creat Clear Calc Estimated GFR POC Glucose 166 H Random Glucose Calcium Assessment and Plan (1) Gross hematuria: Status: Acute (2) Acute on chronic diastolic HF (heart failure): Status: Acute (3) CVA (cerebral vascular accident): Status: Acute (4) Atrial fibrillation: Status: Acute (5) Dizziness: Status: Acute Assessment and Plan: 61yo M with HTN, HFpEF with cardioMEMS device in place, HLD, CAD, DM2, DARLENE, severe pHTN, AF on warfarin, CKD3-4, hx CVA, polycythemic vera, chronic hypoxic respiratory failure on 2L recent admission to [facility] for CHF exacerbation presenting with nausea/vomiting, dizziness # acute pontine CVA ? dizziness and headache resolved, feels better this morning ? Neuro consulted, continue statin, start clopidogrel to replace ASA once hematuria? resolves [pt was taking ASA prior to admission] ? Being followed by Physical therapy due to pain patient did not participate in physical therapy physical therapy continue to recommend home with PT # hypoK - repleted # nausea/vomiting with 1 episode blood-streaked vomitus - ?Brinda-Reyes tear.? has not recurred - s/p IV Protonix, now on oral PPI - repeat hematocrit is stable # hematuria - likely due to traumatic Camilo placement; hold off on starting clopdigrel, continue CBI,, hold warfarin keep INR around 2.5 , seen by Dr. Mondragon he recommend to hold anticoagulation # permanent AF - continue metoprolol; d/c digoxin due to CKD - hold warfarin, INR 3.9, follow PT INR closely. # acute/chronic HFpEF - admitted to [facility] 06/26/21-07/13/21, diuresed 15L, discharged at 295 lb on torsemide 100mg bid + metolazone 5 mg daily - TTE 07/07/20 LVEF 50%, no RWMA, mild , mod pulm HTN - CardioMEMS 07/12/21 PAD 30, SONAL 45; PAD 45, SONAL 64; repeat reading pending - s/p IV furosemide 80 mg b.i.d. creatinine trending up case discussed with Cardiology patient placed on by mouth torsemide 100 mg b.i.d., will hold metolazone follow BMP # leukocytosis - like reactive from vomiting? WBC normalized, no sign of infection. # acute/chronic hypoxic respiratory failure - wean O2 as tolerated, on 2L at home # DM2 with hypyerglycemia, A1c 8.6 - blood sugar stable, on correction-dose lispro.? on U-500 + Trulicity at home.? Continue diabetic diet and insulin sliding scale. # CAD - episode of chest pain resolved, troponins flat - continue statin, metoprolol, Imdur # acute on CKD4 - creatinine trending up to 2.37, baseline creatinine 2, avoid nephrotoxins, avoid hypotension consult Nephrology if noted to have worsening creatinine # HTN - soft blood pressure on metoprolol, and amlodipine, hydralazine discontinued # morbid obesity - outpt bariatrics evaluation can be considered # DARLENE - continue CPAP at bedtime and during naps # VTE ppx - warfarin INR 3.9 hold Coumadin # dispo ? Being followed by Physical therapy - plan eventual home with PT Quality Stroke Does the patient have a stroke diagnosis?: No VTE Prior VTE?: No VTE Risk Level:: Medical - moderate - high VTE Device Contraindication: N/A - Device Ordered VTE Drug Contraindication: Treatment Not Indicated
[2021-07-22 16:36] LABS: Glucose, Whole Blood 176 mg/dL (60-115)
[2021-07-22] MEDS: Omeprazole 40 MG CAPSULE.DR PO (16:57)
[2021-07-22] MEDS: Amitriptyline HCl 50 MG TABLET 150 MG PO (21:57)
[2021-07-22 21:58] LABS: Glucose, Whole Blood 195 mg/dL (60-115)
[2021-07-23] VITALS (7 sets, daily range): BP systolic 103–129; BP diastolic 45–63; PULSE 55–67; RESP 15–20; TEMP 36.5–37.1; O2SAT 92–96
[2021-07-23] MEDS: Omeprazole 40 MG CAPSULE.DR PO ×2 (05:25→15:34)
[2021-07-23 06:14] LABS: Hematocrit 33.5 % (42.0-52.0); Hemoglobin 11.4 g/dl (14.0-18.0); Mean Corpuscular Hemoglobin 29.5 pg (27.0-33.0); Mean Corpuscular Volume 86.6 fL (80.0-98.0); Mean Platelet Volume 10.1 fL (9.4-12.4); Platelet Count 204 X10*3/uL (160-400); Red Blood Count 3.87 X10*6/uL (4.60-5.80); Red Cell Distribution Width 16.5 % (11.0-16.0); White Blood Count 10.9 X10*3/uL (4.8-10.8)
[2021-07-23 06:23] LABS: INTERNATIONAL NORM RATIO 3.1 (0.9-1.1); Prothrombin Time 35.6 SEC (9.9-13.0)
[2021-07-23 06:32] LABS: Anion Gap 13 (12-20); Blood Urea Nitrogen 104 mg/dL (9-16); Calcium 7.8 mg/dL (8.4-10.2); Carbon Dioxide 34 mmol/L (22-29); Chloride 92 mmol/L (96-108); Creatinine Clr Calc Pharmacy 47.7; Estimated Glomerular Filt Rate 29; Glucose Random 154 mg/dL (60-115); Potassium 3.1 mmol/L (3.3-5.1); Sodium 136 mmol/L (135-145)
[2021-07-23 07:54] LABS: Glucose, Whole Blood 144 mg/dL (60-115)
[2021-07-23] MEDS: Ascorbic Acid 500 MG TABLET PO (08:14)
[2021-07-23] MEDS: Insulin Lispro 100 UNIT/ML 3 ML VIAL SUBCUT ×4 (08:14→21:07)
[2021-07-23] MEDS: 0.9 % Sodium Chloride Flush 3 ML SYRINGE IVFLUSH ×3 (08:14→21:07)
[2021-07-23] MEDS: Isosorbide Mononitrate 60 MG TAB.ER.24H PO (08:16)
[2021-07-23] MEDS: Potassium Chloride ER 20 MEQ TAB.ER.PRT PO (08:16)
[2021-07-23] MEDS: Atorvastatin Calcium 80 MG TABLET PO (08:16)
[2021-07-23] MEDS: amLODIPine Besylate 5 MG TABLET PO (08:16)
[2021-07-23] MEDS: Metoprolol Succinate ER 25 MG TAB.ER.24H PO (08:17)
[2021-07-23] MEDS: Torsemide 20 MG TABLET 100 MG PO ×2 (08:17→15:34)
[2021-07-23] MEDS: Amitriptyline HCl 50 MG TABLET PO (08:24)
[2021-07-23 11:49] LABS: Glucose, Whole Blood 158 mg/dL (60-115)
--- NOTE | 2021-07-23 12:59 | P.PNIM_ITS ---
Subjective Subjective Date of Service: 07/23/21 Interval History: Dizziness much improved -5.9L this admission cumulatively dyspnea improved Camilo draining muddy urine Review of Systems Review of Systems: Yes all other systems are reviewed and are negative Physical Exam Vital Signs: Vital Signs: Last Vital Signs Temp 97.7 F 07/23/21 12:00 Pulse 62 07/23/21 12:00 Resp 20 07/23/21 12:00 BP 111/58 L 07/23/21 12:00 Pulse Ox 96 07/23/21 12:00 Oxygen Flow Rate 3 07/22/21 04:00 BMI result Body Mass Index 42.0 Gen: in no acute distress HEENT: sclera anicteric, moist mucus membranes Neck: supple Lungs: diminished at bases bilaterally Heart: irregularly irregular, no murmurs Abd: soft, non-tender, non-distended, obese : Camilo with brown urine Ext: venous stasis hyperpigmentation to shins, 1+ BLE edema Skin: warm/well-perfused Neuro: alert and oriented x3, no focal findings Psych: appropriate affect Objective Data Active Medications Acetaminophen (Acetaminophen 325 Mg Tablet) 650 mg PO Q6H PRN PRN Reason: Pain, Mild (Pain Scale 1-3) Last Admin: 07/19/21 16:31 Dose: 650 mg Documented by: REENA Al Hydroxide/Mg Hydroxide (Magnesium Hydrox/Alum Hydrox 30 Ml Oral.Susp) 30 ml PO Q4H PRN PRN Reason: heartbirun Last Admin: 07/19/21 00:23 Dose: 30 ml Documented by: GIL Amitriptyline HCl (Amitriptyline Hcl 50 Mg Tablet) 150 mg PO BEDTIME [facility] Last Admin: 07/22/21 21:57 Dose: 150 mg Documented by: ODRISMichelle Amitriptyline HCl (Amitriptyline Hcl 50 Mg Tablet) 50 mg PO DAILY [facility] Last Admin: 07/23/21 08:24 Dose: 50 mg Documented by: LUDIN Amlodipine Besylate (Amlodipine Besylate 5 Mg Tablet) 5 mg PO DAILY [facility]; Protocol Last Admin: 07/23/21 08:16 Dose: 5 mg Documented by: LUDIN Ascorbic Acid (Ascorbic Acid 500 Mg Tablet) 500 mg PO DAILY [facility] Last Admin: 07/23/21 08:14 Dose: 500 mg Documented by: LUDIN Atorvastatin Calcium (Atorvastatin Calcium 80 Mg Tablet) 80 mg PO DAILY [facility] Last Admin: 07/23/21 08:16 Dose: 80 mg Documented by: LUDIN Bismuth Subsalicylate (Bismuth Subsalicylate Liquid 524 Mg/30 Ml Oral.Susp) 524 mg PO QID PRN PRN Reason: Indigestion Last Admin: 07/18/21 15:06 Dose: 524 mg Documented by: LORE Dextrose (Dextrose 50 % 25 Gm/50 Ml Syringe) 25 gm IVPUSH Q15M PRN; Protocol PRN Reason: per Hypoglycemia Standing Ord. Docusate Sodium (Docusate Sodium 100 Mg Capsule) 100 mg PO DAILY PRN PRN Reason: Constipation Glucose (Glucose Gel 15 Gm Gel..Gram.) 15 gm PO Q15M PRN; Protocol PRN Reason: per Hypoglycemia Standing Ord. Insulin Human Lispro (Insulin Lispro 100 Unit/Ml 3 Ml Vial) 0 unit SUBCUT QIDACHS [facility]; Protocol Last Admin: 07/23/21 12:13 Dose: 4 unit Documented by: LUDIN Isosorbide Mononitrate (Isosorbide Mononitrate 60 Mg Tab.Er.24h) 60 mg PO DAILY [facility]; Protocol Last Admin: 07/23/21 08:16 Dose: 60 mg Documented by: LUDIN Metoprolol Succinate (Metoprolol Succinate Er 25 Mg Tab.Er.24h) 25 mg PO DAILY [facility]; Protocol Last Admin: 07/23/21 08:17 Dose: 25 mg Documented by: LUDIN Omeprazole (Omeprazole 40 Mg Capsule.Dr) 40 mg PO BID@0630,1630 [facility] Last Admin: 07/23/21 05:25 Dose: 40 mg Documented by: CATHIRISMichelle Ondansetron HCl (Ondansetron Hcl 4 Mg/2 Ml Vial) 4 mg IVPUSH Q8H PRN PRN Reason: Nausea and Vomiting Last Admin: 07/19/21 06:16 Dose: 4 mg Documented by: GIL Oxycodone HCl (Oxycodone Hcl Immed Release 5 Mg Tablet) 5 mg PO Q4H PRN PRN Reason: Pain, Moderate (Pain Scale 4-6 Last Admin: 07/22/21 17:00 Dose: 5 mg Documented by: JAYLYN Pharmacy Consult (Consult Rx Perform Med Rec) 1 each MISCELLANE ONCE PRN PRN Reason: Consult order Potassium Chloride (Potassium Chloride Er 20 Meq Tab.Er.Prt) 20 meq PO DAILY [facility] Last Admin: 07/23/21 08:16 Dose: 20 meq Documented by: LUDIN Sodium Chloride (0.9 % Sodium Chloride Flush 3 Ml Syringe) 3 ml IVFLUSH QSHIFT [facility] Last Admin: 07/23/21 08:14 Dose: 3 ml Documented by: LUDIN Torsemide (Torsemide 20 Mg Tablet) 100 mg PO BID@0800,1500 [facility]; Protocol Last Admin: 07/23/21 08:17 Dose: 100 mg Documented by: LUDIN Labs CBC & Chem 7: 07/23/21 05:34 07/23/21 05:34 Labs: Laboratory Results - last 24 hr 07/22/21 07/22/21 07/23/21 15:26 21:53 05:34 MCV MCH MCHC RDW Plt Count MPV Absolute Nucleated RBC Nucleated RBC % (auto) PT 35.6 H INR 3.1 H Anion Gap Estim Creat Clear Calc Estimated GFR POC Glucose 176 H 195 H Random Glucose Calcium 07/23/21 07/23/21 07/23/21 05:34 05:34 07:31 MCV 86.6 MCH 29.5 MCHC 34.0 RDW 16.5 H Plt Count 204 MPV 10.1 Absolute Nucleated RBC 0.000 Nucleated RBC % (auto) 0.0 PT INR Anion Gap 13 Estim Creat Clear Calc 47.7 Estimated GFR 29 POC Glucose 144 H Random Glucose 154 H Calcium 7.8 L 07/23/21 11:26 MCV MCH MCHC RDW Plt Count MPV Absolute Nucleated RBC Nucleated RBC % (auto) PT INR Anion Gap Estim Creat Clear Calc Estimated GFR POC Glucose 158 H Random Glucose Calcium Microbiology Microbiology Results: Microbiology 07/17/21 15:05 Blood Culture - Final Blood - Venous No growth after 5 days. 07/17/21 14:48 Blood Culture - Final Blood - Venous No growth after 5 days. Assessment and Plan (1) Gross hematuria: Status: Acute (2) Acute on chronic diastolic HF (heart failure): Status: Acute (3) CVA (cerebral vascular accident): Status: Acute (4) Atrial fibrillation: Status: Acute (5) Dizziness: Status: Acute Assessment and Plan: hospital d#7 61yo M with HTN, HFpEF with cardioMEMS device in place, HLD, CAD, DM2, DARLENE, severe pHTN, AF on warfarin, CKD3-4, hx CVA, polycythemic vera, chronic hypoxic respiratory failure on 2L recent admission to [facility] for CHF exacerbation presenting with nausea/vomiting, dizziness # acute pontine CVA - dizziness improved - Neuro consulted - conitnue statin, start clopidogrel to replace ASA once hematuria resolves [pt was taking ASA prior to admisison] # hypoK - repleted # nausea/vomiting with 1 episode blood-streaked vomitus - ?Brinda-Reyes tear.? has not recurred - s/p IV Protonix, now on oral PPI - repeat hematocrit is stable # hematuria - likely due to traumatic Camilo placement; hold off on starting clopdigrel, continue CBI,, hold warfarin keep INR around 2.5 , seen by Dr. Mondragon he recommend to hold anticoagulation # permanent AF - continue metoprolol; d/c digoxin due to CKD - hold warfarin, INR 3.1, follow PT INR closely. # acute/chronic HFpEF - admitted to [facility] 06/26/21-07/13/21, diuresed 15L, discharged at 295 lb on torsemide 100mg bid + metolazone 5 mg daily - TTE 07/07/20 LVEF 50%, no RWMA, mild , mod pulm HTN - Cardiology following with CardioMEMS device measurements - s/p IV furosemide 80 mg b.i.d. and now on by mouth torsemide 100 mg b.i.d # leukocytosis - like reactive from vomiting? WBC normalized, no sign of infection. # acute/chronic hypoxic respiratory failure - wean O2 as tolerated, on 2L at home # DM2 with hypyerglycemia, A1c 8.6 - blood sugar stable, on correction-dose lispro.? on U-500 + Trulicity at home.? Continue diabetic diet and insulin sliding scale. # CAD - episode of chest pain resolved, troponins flat - continue statin, metoprolol, Imdur # acute on CKD4 - creatinine trending up to 2.37, baseline creatinine 2, avoid nephrotoxins, avoid hypotension consult Nephrology if noted to have worsening creatinine # HTN - soft blood pressure on metoprolol, and amlodipine, hydralazine discontinued # morbid obesity - outpt bariatrics evaluation can be considered # DARLENE - continue CPAP at bedtime and during naps # VTE ppx - warfarin INR 3.1; hold warfarin # dispo - plan home with VNA, possibly tomorrow Quality Stroke Does the patient have a stroke diagnosis?: No VTE Prior VTE?: No VTE Risk Level:: Medical - moderate - high VTE Device Contraindication: N/A - Device Ordered VTE Drug Contraindication: Treatment Not Indicated
[2021-07-23 17:01] LABS: Glucose, Whole Blood 187 mg/dL (60-115)
[2021-07-23] MEDS: oxyCODONE HCl Immed Release 5 MG TABLET PO (19:14)
[2021-07-23 20:52] LABS: Glucose, Whole Blood 196 mg/dL (60-115)
[2021-07-23] MEDS: Amitriptyline HCl 50 MG TABLET 150 MG PO (21:07)
[2021-07-24] VITALS (8 sets, daily range): BP systolic 113–128; BP diastolic 56–70; PULSE 55–86; RESP 16–19; TEMP 36–37; O2SAT 93–100
[2021-07-24] MEDS: Omeprazole 40 MG CAPSULE.DR PO ×2 (05:43→15:51)
[2021-07-24 06:08] LABS: Hematocrit 34.1 % (42.0-52.0); Hemoglobin 11.3 g/dl (14.0-18.0)
[2021-07-24 06:13] LABS: INTERNATIONAL NORM RATIO 2.6 (0.9-1.1); Prothrombin Time 29.6 SEC (9.9-13.0)
[2021-07-24 06:23] LABS: B Type Natriuretic Peptide 303 pg/mL (<100)
[2021-07-24 06:37] LABS: Anion Gap 12 (12-20); Blood Urea Nitrogen 106 mg/dL (9-16); Calcium 7.7 mg/dL (8.4-10.2); Carbon Dioxide 35 mmol/L (22-29); Chloride 91 mmol/L (96-108); Creatinine Clr Calc Pharmacy 51.7; Estimated Glomerular Filt Rate 31; Glucose Random 135 mg/dL (60-115); Magnesium 2.4 mg/dL (1.6-2.6); Potassium 2.7 mmol/L (3.3-5.1); Sodium 135 mmol/L (135-145)
[2021-07-24 07:58] LABS: Glucose, Whole Blood 135 mg/dL (60-115)
[2021-07-24] MEDS: Insulin Lispro 100 UNIT/ML 3 ML VIAL SUBCUT ×4 (08:40→20:45)
[2021-07-24] MEDS: Ascorbic Acid 500 MG TABLET PO (08:42)
[2021-07-24] MEDS: Torsemide 20 MG TABLET 100 MG PO ×2 (08:42→15:02)
[2021-07-24] MEDS: Atorvastatin Calcium 80 MG TABLET PO (08:42)
[2021-07-24] MEDS: amLODIPine Besylate 5 MG TABLET PO (08:42)
[2021-07-24] MEDS: Metoprolol Succinate ER 25 MG TAB.ER.24H PO (08:42)
[2021-07-24] MEDS: Amitriptyline HCl 50 MG TABLET PO (08:43)
[2021-07-24] MEDS: Isosorbide Mononitrate 60 MG TAB.ER.24H PO (08:43)
[2021-07-24] MEDS: Potassium Chloride ER 20 MEQ TAB.ER.PRT 40 MEQ PO (08:43)
[2021-07-24] MEDS: Potassium Chloride/H20 10 MEQ/100 ML PIGGYBACK 100 MEQ IV ×6 (08:44→16:53)
[2021-07-24] MEDS: 0.9 % Sodium Chloride Flush 3 ML SYRINGE IVFLUSH ×2 (09:01→15:03)
--- NOTE | 2021-07-24 11:16 | PM.PNCARD ---
Subjective Subjective Date of Service: 07/24/21 Principal diagnosis: Dizziness, CVA, afib, chronic diastolic HF Interval history: He has hematuria. Bladder irrigation he has been restarted. No dyspnea. He has a headache today. Physical Exam Vital Signs: Last Vital Signs Temp 97.4 F 07/24/21 08:00 Pulse 57 07/24/21 08:00 Resp 19 07/24/21 08:00 BP 118/66 07/24/21 08:00 Pulse Ox 97 07/24/21 08:00 Oxygen Flow Rate 3 07/22/21 04:00 BMI result Body Mass Index 42.0 GENERAL APPEARANCE: in no acute distress, well developed, well nourished. NECK/THYROID: no carotid bruit, + jugular venous distention with prominent V wave. SKIN: no suspicious lesions, warm and dry. HEART: no murmurs, irregularly irregular rhythm, Parasternal and apical holosystolic murmurs. LUNGS: clear to auscultation bilaterally. ABDOMEN: normal, bowel sounds present, soft, nontender, nondistended. EXTREMITIES: No significant edema. PERIPHERAL PULSES: equal. NEUROLOGIC: nonfocal, alert and oriented. Objective Labs and Meds Result diagrams: 07/24/21 05:15 07/24/21 05:15 Lab results: Laboratory Results - last 24 hr 07/23/21 07/23/21 07/23/21 11:26 16:48 20:34 Hgb Hct PT INR Sodium Potassium Chloride Carbon Dioxide Anion Gap BUN Creatinine Estim Creat Clear Calc Estimated GFR POC Glucose 158 H 187 H 196 H Random Glucose Calcium Magnesium B-Natriuretic Peptide 07/24/21 07/24/21 07/24/21 05:15 05:15 05:15 Hgb 11.3 L Hct 34.1 L PT 29.6 H INR 2.6 H Sodium 135 Potassium 2.7 L Chloride 91 L Carbon Dioxide 35 H Anion Gap 12 BUN 106 H Creatinine 2.17 H Estim Creat Clear Calc 51.7 Estimated GFR 31 POC Glucose Random Glucose 135 H Calcium 7.7 L Magnesium 2.4 B-Natriuretic Peptide 07/24/21 07/24/21 05:15 07:28 Hgb Hct PT INR Sodium Potassium Chloride Carbon Dioxide Anion Gap BUN Creatinine Estim Creat Clear Calc Estimated GFR POC Glucose 135 H Random Glucose Calcium Magnesium B-Natriuretic Peptide 303 H Progress Note: A&P Assessment and plan (1) Acute on chronic diastolic HF (heart failure): Status: Acute (2) CVA (cerebral vascular accident): Status: Acute Assessment and Plan: 61-year-old gentleman patient of [facility] who is here with acute CVA. He has known history of diastolic heart failure and had CardioMEMS placed a [facility]. He also had recent admission with heart failure. Now presented with acute CVA periods he has been supratherapeutic on his INR and hematuria and is getting bladder irrigation. Also was significantly volume overloaded and was diuresed. Volume status is somewhat difficult to assess because he likely has tricuspid regurgitation and prominent V-waves on his examination. He is on oral torsemide at this stage. Overall he is feeling fine. As his hematuria improves I think he should be discharged to rehab any can see Dr. Kulwant Porter in follow-up. He has significantly elevated BUN level. This is she reconsider bad prognostic marker. 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 I think we should try hydralazine 25 mg 3 times a day. If blood pressure does not have wound the amlodipine can be stopped and hydralazine tried instead. Thank you for allowing me to participate in the care of your patient. Please feel free to contact me if you have any questions. Fall Risk Details Current Medications: Current Medications Acetaminophen (Acetaminophen 325 Mg Tablet) 650 mg PO Q6H PRN PRN Reason: Pain, Mild (Pain Scale 1-3) Last Admin: 07/19/21 16:31 Dose: 650 mg Documented by: Al Hydroxide/Mg Hydroxide (Magnesium Hydrox/Alum Hydrox 30 Ml Oral.Susp) 30 ml PO Q4H PRN PRN Reason: heartbirun Last Admin: 07/19/21 00:23 Dose: 30 ml Documented by: Amitriptyline HCl (Amitriptyline Hcl 50 Mg Tablet) 150 mg PO BEDTIME [facility] Last Admin: 07/23/21 21:07 Dose: 150 mg Documented by: Amitriptyline HCl (Amitriptyline Hcl 50 Mg Tablet) 50 mg PO DAILY [facility] Last Admin: 07/24/21 08:43 Dose: 50 mg Documented by: Amlodipine Besylate (Amlodipine Besylate 5 Mg Tablet) 5 mg PO DAILY [facility]; Protocol Last Admin: 07/24/21 08:42 Dose: 5 mg Documented by: Ascorbic Acid (Ascorbic Acid 500 Mg Tablet) 500 mg PO DAILY [facility] Last Admin: 07/24/21 08:42 Dose: 500 mg Documented by: Atorvastatin Calcium (Atorvastatin Calcium 80 Mg Tablet) 80 mg PO DAILY [facility] Last Admin: 07/24/21 08:42 Dose: 80 mg Documented by: Bismuth Subsalicylate (Bismuth Subsalicylate Liquid 524 Mg/30 Ml Oral.Susp) 524 mg PO QID PRN PRN Reason: Indigestion Last Admin: 07/18/21 15:06 Dose: 524 mg Documented by: Dextrose (Dextrose 50 % 25 Gm/50 Ml Syringe) 25 gm IVPUSH Q15M PRN; Protocol PRN Reason: per Hypoglycemia Standing Ord. Docusate Sodium (Docusate Sodium 100 Mg Capsule) 100 mg PO DAILY PRN PRN Reason: Constipation Glucose (Glucose Gel 15 Gm Gel..Gram.) 15 gm PO Q15M PRN; Protocol PRN Reason: per Hypoglycemia Standing Ord. Potassium Chloride () 10 meq in 100 mls @ 100 mls/hr IV Q1H [facility] Stop: 07/24/21 11:44 Last Admin: 07/24/21 10:06 Dose: 100 mls/hr Documented by: Insulin Human Lispro (Insulin Lispro 100 Unit/Ml 3 Ml Vial) 0 unit SUBCUT QIDACHS [facility]; Protocol Last Admin: 07/24/21 08:40 Dose: 2 unit Documented by: Isosorbide Mononitrate (Isosorbide Mononitrate 60 Mg Tab.Er.24h) 60 mg PO DAILY [facility]; Protocol Last Admin: 07/24/21 08:43 Dose: 60 mg Documented by: Metoprolol Succinate (Metoprolol Succinate Er 25 Mg Tab.Er.24h) 25 mg PO DAILY [facility]; Protocol Last Admin: 07/24/21 08:42 Dose: 25 mg Documented by: Omeprazole (Omeprazole 40 Mg Capsule.) 40 mg PO BID@0630,1630 [facility] Last Admin: 07/24/21 05:43 Dose: 40 mg Documented by: Ondansetron HCl (Ondansetron Hcl 4 Mg/2 Ml Vial) 4 mg IVPUSH Q8H PRN PRN Reason: Nausea and Vomiting Last Admin: 07/19/21 06:16 Dose: 4 mg Documented by: Oxycodone HCl (Oxycodone Hcl Immed Release 5 Mg Tablet) 5 mg PO Q4H PRN PRN Reason: Pain, Moderate (Pain Scale 4-6 Last Admin: 07/23/21 19:14 Dose: 5 mg Documented by: Pharmacy Consult (Consult Rx Perform Med Rec) 1 each MISCELLANE ONCE PRN PRN Reason: Consult order Potassium Chloride (Potassium Chloride Er 20 Meq Tab.Er.Prt) 40 meq PO DAILY [facility] Last Admin: 07/24/21 08:43 Dose: 40 meq Documented by: Sodium Chloride (0.9 % Sodium Chloride Flush 3 Ml Syringe) 3 ml IVFLUSH QSHIFT [facility] Last Admin: 07/24/21 09:01 Dose: 3 ml Documented by: Torsemide (Torsemide 20 Mg Tablet) 100 mg PO BID@0800,1500 [facility]; Protocol Last Admin: 07/24/21 08:42 Dose: 100 mg Documented by: Warfarin Sodium (Warfarin Sodium 1 Mg Tablet) 1 mg PO DAILY@1800 [facility] Time Spent With Patient Time: Total time spent is greater than 50% in coordination of care (as documented) at patient's floor/unit and/or counseling patient: Time with patient: 15 - 24 minutes Progress Note: Quality Stroke Does the patient have a stroke diagnosis?: No Procedures Date of Service Date of Service: 07/24/21
--- NOTE | 2021-07-24 11:19 | HO.PM.IMPN ---
Subjective Subjective Date of Service: 07/24/21 Interval History: Headache + dizziness improved Dyspnea improved Ongoing gross hematuria No chest pain Review of Systems Review of Systems: Yes all other systems are reviewed and are negative Physical Exam Vital Signs: Vital Signs: Last Vital Signs Temp 97.4 F 07/24/21 08:00 Pulse 57 07/24/21 08:00 Resp 19 07/24/21 08:00 BP 118/66 07/24/21 08:00 Pulse Ox 97 07/24/21 08:00 Oxygen Flow Rate 3 07/22/21 04:00 BMI result Body Mass Index 42.0 Gen: in no acute distress HEENT: sclera anicteric, moist mucus membranes Neck: supple Lungs: diminished at bases bilaterally Heart: irregularly irregular, no murmurs Abd: soft, non-tender, non-distended, obese : Camilo with bloody urine Ext: venous stasis hyperpigmentation to shins, 1+ BLE edema Skin: warm/well-perfused Neuro: alert and oriented x3, no focal findings Psych: appropriate affect Objective Data Active Medications Acetaminophen (Acetaminophen 325 Mg Tablet) 650 mg PO Q6H PRN PRN Reason: Pain, Mild (Pain Scale 1-3) Last Admin: 07/19/21 16:31 Dose: 650 mg Documented by: REENA Al Hydroxide/Mg Hydroxide (Magnesium Hydrox/Alum Hydrox 30 Ml Oral.Susp) 30 ml PO Q4H PRN PRN Reason: heartbirun Last Admin: 07/19/21 00:23 Dose: 30 ml Documented by: GIL Amitriptyline HCl (Amitriptyline Hcl 50 Mg Tablet) 150 mg PO BEDTIME [facility] Last Admin: 07/23/21 21:07 Dose: 150 mg Documented by: ODRISM Amitriptyline HCl (Amitriptyline Hcl 50 Mg Tablet) 50 mg PO DAILY [facility] Last Admin: 07/24/21 08:43 Dose: 50 mg Documented by: LUDIN Amlodipine Besylate (Amlodipine Besylate 5 Mg Tablet) 5 mg PO DAILY [facility]; Protocol Last Admin: 07/24/21 08:42 Dose: 5 mg Documented by: LUDIN Ascorbic Acid (Ascorbic Acid 500 Mg Tablet) 500 mg PO DAILY [facility] Last Admin: 07/24/21 08:42 Dose: 500 mg Documented by: LUDIN Atorvastatin Calcium (Atorvastatin Calcium 80 Mg Tablet) 80 mg PO DAILY [facility] Last Admin: 07/24/21 08:42 Dose: 80 mg Documented by: LUDIN Bismuth Subsalicylate (Bismuth Subsalicylate Liquid 524 Mg/30 Ml Oral.Susp) 524 mg PO QID PRN PRN Reason: Indigestion Last Admin: 07/18/21 15:06 Dose: 524 mg Documented by: LORE Dextrose (Dextrose 50 % 25 Gm/50 Ml Syringe) 25 gm IVPUSH Q15M PRN; Protocol PRN Reason: per Hypoglycemia Standing Ord. Docusate Sodium (Docusate Sodium 100 Mg Capsule) 100 mg PO DAILY PRN PRN Reason: Constipation Glucose (Glucose Gel 15 Gm Gel..Gram.) 15 gm PO Q15M PRN; Protocol PRN Reason: per Hypoglycemia Standing Ord. Potassium Chloride () 10 meq in 100 mls @ 100 mls/hr IV Q1H [facility] Stop: 07/24/21 11:44 Last Admin: 07/24/21 10:06 Dose: 100 mls/hr Documented by: LUDIN Insulin Human Lispro (Insulin Lispro 100 Unit/Ml 3 Ml Vial) 0 unit SUBCUT QIDACHS [facility]; Protocol Last Admin: 07/24/21 08:40 Dose: 2 unit Documented by: LUDIN Isosorbide Mononitrate (Isosorbide Mononitrate 60 Mg Tab.Er.24h) 60 mg PO DAILY [facility]; Protocol Last Admin: 07/24/21 08:43 Dose: 60 mg Documented by: LUDIN Metoprolol Succinate (Metoprolol Succinate Er 25 Mg Tab.Er.24h) 25 mg PO DAILY [facility]; Protocol Last Admin: 07/24/21 08:42 Dose: 25 mg Documented by: LUDIN Omeprazole (Omeprazole 40 Mg Capsule.) 40 mg PO BID@0630,1630 [facility] Last Admin: 07/24/21 05:43 Dose: 40 mg Documented by: LUPILLO Ondansetron HCl (Ondansetron Hcl 4 Mg/2 Ml Vial) 4 mg IVPUSH Q8H PRN PRN Reason: Nausea and Vomiting Last Admin: 07/19/21 06:16 Dose: 4 mg Documented by: GIL Oxycodone HCl (Oxycodone Hcl Immed Release 5 Mg Tablet) 5 mg PO Q4H PRN PRN Reason: Pain, Moderate (Pain Scale 4-6 Last Admin: 07/23/21 19:14 Dose: 5 mg Documented by: LUPILLO Pharmacy Consult (Consult Rx Perform Med Rec) 1 each MISCELLANE ONCE PRN PRN Reason: Consult order Potassium Chloride (Potassium Chloride Er 20 Meq Tab.Er.Prt) 40 meq PO DAILY [facility] Last Admin: 07/24/21 08:43 Dose: 40 meq Documented by: LUDIN Sodium Chloride (0.9 % Sodium Chloride Flush 3 Ml Syringe) 3 ml IVFLUSH QSHIFT [facility] Last Admin: 07/24/21 09:01 Dose: 3 ml Documented by: LUDIN Torsemide (Torsemide 20 Mg Tablet) 100 mg PO BID@0800,1500 [facility]; Protocol Last Admin: 07/24/21 08:42 Dose: 100 mg Documented by: LUDIN Warfarin Sodium (Warfarin Sodium 1 Mg Tablet) 1 mg PO DAILY@1800 [facility] Labs CBC & Chem 7: 07/24/21 05:15 07/24/21 05:15 Labs: Laboratory Results - last 24 hr 07/23/21 07/23/21 07/23/21 11:26 16:48 20:34 PT INR Anion Gap Estim Creat Clear Calc Estimated GFR POC Glucose 158 H 187 H 196 H Random Glucose Calcium Magnesium B-Natriuretic Peptide 07/24/21 07/24/21 07/24/21 05:15 05:15 05:15 PT 29.6 H INR 2.6 H Anion Gap 12 Estim Creat Clear Calc 51.7 Estimated GFR 31 POC Glucose Random Glucose 135 H Calcium 7.7 L Magnesium 2.4 B-Natriuretic Peptide 303 H 07/24/21 07:28 PT INR Anion Gap Estim Creat Clear Calc Estimated GFR POC Glucose 135 H Random Glucose Calcium Magnesium B-Natriuretic Peptide Assessment and Plan (1) Gross hematuria: Status: Acute (2) Acute on chronic diastolic HF (heart failure): Status: Acute (3) CVA (cerebral vascular accident): Status: Acute (4) Atrial fibrillation: Status: Acute (5) Dizziness: Status: Acute Assessment and Plan: hospital d#8 61yo M with HTN, HFpEF with cardioMEMS device in place, HLD, CAD, DM2, DARLENE, severe pHTN, AF on warfarin, CKD3-4, hx CVA, polycythemic vera, chronic hypoxic respiratory failure on 2L recent admission to [facility] for CHF exacerbation presenting with nausea/vomiting, dizziness # acute pontine CVA - dizziness improved - Neuro consulted - conitnue statin, start clopidogrel to replace ASA once hematuria resolves [pt was taking ASA prior to admission but then had CVA] # hypoK - replete IV + PO [increase PO from 20 to 40 mEq daily], recheck this afternoon # nausea/vomiting with 1 episode blood-streaked vomitus - ?Brinda-Reyes tear.? has not recurred since admission - s/p IV Protonix, now on oral PPI - repeat hematocrit is stable # hematuria - likely due to traumatic Camilo placement; hold off on starting clopdigrel, resume CBI, monitor INR # permanent AF - continue metoprolol; d/c digoxin due to CKD - resume low-dose warfarin; INR 2.6 today # acute/chronic HFpEF - admitted to [facility] 06/26/21-07/13/21, diuresed 15L, discharged at 295 lb on torsemide 100mg bid + metolazone 5 mg daily - TTE 07/07/20 LVEF 50%, no RWMA, mild , mod pulm HTN - Cardiology following with CardioMEMS device measurements - s/p IV furosemide 80 mg b.i.d. and now on by mouth torsemide 100 mg b.i.d; overall net negative 7.7L this admission and BUN is quite high - pt will f/u with [facility] as outpt # leukocytosis - like reactive from vomiting? WBC normalized, no sign of infection. # acute/chronic hypoxic respiratory failure - wean O2 as tolerated, on 2L at home # DM2 with hypyerglycemia, A1c 8.6 - blood sugar stable, on correction-dose lispro.? on U-500 + Trulicity at home.? Continue diabetic diet and insulin sliding scale. # CAD - episode of chest pain resolved, troponins flat - continue statin, metoprolol, Imdur # acute on CKD4 - SCr back at baseline; avoid nephrotoxins, avoid hypotension consult Nephrology if noted to have worsening creatinine # HTN - soft blood pressure on metoprolol and amlodipine; hydralazine discontinued # morbid obesity - outpt bariatrics evaluation can be considered # DARLENE - continue CPAP at bedtime and during naps # VTE ppx - on warfarin with INR 2.6 # dispo - plan home with VNA once hypokalemia and hematuria resolve Quality Stroke Does the patient have a stroke diagnosis?: No VTE Prior VTE?: No VTE Risk Level:: Medical - moderate - high VTE Device Contraindication: N/A - Device Ordered VTE Drug Contraindication: Treatment Not Indicated
[2021-07-24 11:41] LABS: Glucose, Whole Blood 135 mg/dL (60-115)
[2021-07-24 14:41] LABS: Potassium 3.1 mmol/L (3.3-5.1)
[2021-07-24 16:17] LABS: Glucose, Whole Blood 144 mg/dL (60-115)
[2021-07-24 20:30] LABS: Glucose, Whole Blood 172 mg/dL (60-115)
[2021-07-24] MEDS: Amitriptyline HCl 50 MG TABLET 150 MG PO (20:45)
[2021-07-25] MEDS: Acetaminophen 325 MG TABLET 650 MG PO (00:23)
[2021-07-25] MEDS: oxyCODONE HCl Immed Release 5 MG TABLET PO ×4 (00:23→20:49)
[2021-07-25] MEDS: 0.9 % Sodium Chloride Flush 3 ML SYRINGE IVFLUSH ×3 (00:24→18:56)
[2021-07-25 03:18] VITALS: BP 118/61; PULSE 53; RESP 18; TEMP 36.7; O2SAT 99
[2021-07-25 05:54] LABS: INTERNATIONAL NORM RATIO 2.1 (0.9-1.1); Prothrombin Time 23.7 SEC (9.9-13.0)
[2021-07-25] MEDS: Omeprazole 40 MG CAPSULE.DR PO ×2 (06:04→18:55)
[2021-07-25 06:05] LABS: Anion Gap 12 (12-20); Blood Urea Nitrogen 104 mg/dL (9-16); Calcium 7.6 mg/dL (8.4-10.2); Carbon Dioxide 35 mmol/L (22-29); Chloride 92 mmol/L (96-108); Creatinine Clr Calc Pharmacy 55.5; Estimated Glomerular Filt Rate 34; Glucose Random 135 mg/dL (60-115); Magnesium 2.2 mg/dL (1.6-2.6); Potassium 2.8 mmol/L (3.3-5.1); Sodium 136 mmol/L (135-145)
[2021-07-25 07:40] VITALS: BP 111/60; PULSE 58; RESP 18; TEMP 36.8; O2SAT 95
[2021-07-25 07:59] LABS: Glucose, Whole Blood 139 mg/dL (60-115)
[2021-07-25] MEDS: amLODIPine Besylate 5 MG TABLET PO (08:06)
[2021-07-25] MEDS: Potassium Chloride ER 20 MEQ TAB.ER.PRT 40 MEQ PO ×3 (08:07→18:55)
[2021-07-25] MEDS: Torsemide 20 MG TABLET 100 MG PO ×2 (08:07→18:54)
[2021-07-25] MEDS: Isosorbide Mononitrate 60 MG TAB.ER.24H PO (08:07)
[2021-07-25] MEDS: Metoprolol Succinate ER 25 MG TAB.ER.24H PO (08:07)
[2021-07-25] MEDS: Ascorbic Acid 500 MG TABLET PO (08:07)
[2021-07-25] MEDS: Amitriptyline HCl 50 MG TABLET PO (08:13)
[2021-07-25] MEDS: Atorvastatin Calcium 80 MG TABLET PO (08:13)
[2021-07-25 11:25] LABS: Glucose, Whole Blood 174 mg/dL (60-115)
--- NOTE | 2021-07-25 11:28 | P.PNCA_ITS ---
Subjective Subjective Date of Service: 07/25/21 <KEYANNA Burdick - Last Filed: 07/25/21 11:51> 07/25/21 <René Lopez MD - Last Filed: 07/25/21 15:12> Principal diagnosis: Dizziness, CVA, afib, chronic diastolic HF <KEYANNA Burdick - Last Filed: 07/25/21 11:51> Interval history: Cardiology follow up for HF. Seen at 0945. Today he reports having a bad frontal headache. He denies vision changes, dizziness, spinning. No nausea. Reports breathing is normal for him. Wearing O2 2 liters which is his normal. Has been wearing CPAP mask during the night. No chest pains or pressure. No palpitation. Still has swelling in upper legs. Repositions self in bed. Has not been up to chair due to reported pain from mcknight catheter. No longer having hematuria. Hoping to go home soon. Does not want rehab. <KEYANNA Burdick - Last Filed: 07/25/21 11:51> Review of Systems Review of Systems as above <KEYANNA Burdick - Last Filed: 07/25/21 11:51> Yes all other systems are reviewed and are negative <KEYANNA Burdick - Last Filed: 07/25/21 11:51> Physical Exam Vital Signs: Last Vital Signs Temp 98.2 F 07/25/21 07:40 Pulse 58 07/25/21 07:40 Resp 18 07/25/21 07:40 BP 111/60 07/25/21 07:40 Pulse Ox 95 07/25/21 07:40 Oxygen Flow Rate 3 07/22/21 04:00 BMI result Body Mass Index 42.0 <KEYANNA Burdick - Last Filed: 07/25/21 11:51> Const General: cooperative, no acute distress, alert and awake <KEYANNA Burdick Last Filed: 07/25/21 11:51> Orientation/consciousness: patient oriented x3 <KEYANNA Burdick - Last Filed: 07/25/21 11:51> Neck Other: JVD present <KEYANNA Burdick Last Filed: 07/25/21 11:51> Resp Effort & Inspection: normal respiratory effort, able to speak in complete sentences and not labored <Hilad ConwaySOFÍAC - Last Filed: 07/25/21 11:51> Auscultation: clear to auscultation bilaterally, no rales, no rhonchi and no wheezes <Vance ConwaySOFÍAC - Last Filed: 07/25/21 11:51> Cardio Jugular venous distension: JVD present <Hilda ConwaySOFÍAC - Last Filed: 07/25/21 11:51> Rate: regular rate <[facility] - Last Filed: 07/25/21 11:51> Rhythm: abnormal rhythm <Hilda ConwaySOFÍA - Last Filed: 07/25/21 11:51> Heart sounds: S1 normal heart sound present and S2 normal heart sound present <Hilda ConwaySOFÍAC - Last Filed: 07/25/21 11:51> Peripheral pulses: Peripheral pulses 2+ throughout <Hilda Conway [facility] - Last Filed: 07/25/21 11:51> GI Inspection: Yes normal to inspection <Hilda ConwaySOFÍAC - Last Filed: 07/25/21 11:51> Neuro General: patient oriented x3 <Hilda ConwaySOFÍA - Last Filed: 07/25/21 11:51> Extrem Other: venous stasis changes to lower legs. Pitting edema of upper legs, knees to upper thighs. <Hilda ConwaySOFÍAC - Last Filed: 07/25/21 11:51> Objective Labs and Meds Result diagrams: : 07/24/21 05:15 07/25/21 05:15 <Hilda ConwaySOFÍAC - Last Filed: 07/25/21 11:51> Lab results: Laboratory Results - last 24 hr 07/24/21 07/24/21 07/24/21 11:14 14:12 16:06 PT INR Sodium Potassium 3.1 L Chloride Carbon Dioxide Anion Gap BUN Creatinine Estim Creat Clear Calc Estimated GFR POC Glucose 135 H 144 H Random Glucose Calcium Magnesium 07/24/21 07/25/21 07/25/21 20:12 05:15 05:15 PT 23.7 H INR 2.1 H Sodium 136 Potassium 2.8 L Chloride 92 L Carbon Dioxide 35 H Anion Gap 12 BUN 104 H Creatinine 2.02 H Estim Creat Clear Calc 55.5 Estimated GFR 34 POC Glucose 172 H Random Glucose 135 H Calcium 7.6 L Magnesium 2.2 07/25/21 07/25/21 07:38 11:21 PT INR Sodium Potassium Chloride Carbon Dioxide Anion Gap BUN Creatinine Estim Creat Clear Calc Estimated GFR POC Glucose 139 H 174 H Random Glucose Calcium Magnesium <KEYANNA Burdick - Last Filed: 07/25/21 11:51> Progress Note: A&P Assessment and plan (1) Acute on chronic diastolic HF (heart failure): Status: Acute <KEYANNA Burdick - Last Filed: 07/25/21 11:51> Assessment and Plan: [facility] admit for acute on chronic systolic and diastolic HF from 06/26 - 07/13. Discharge summary reviewed and notes indicate he was discharged around 15 liters and discharge weight was 295lb. His discharge diuretics included Torsemide 100mg bid and Metolazone 5 mg daily.? Echo done at [facility] on 12/05/20 shows EF 50%, no regional WMA, mild , mod pulm HTN. He has a cardiomems PA sensor in place and follows [facility]. Cardiomems reading done 07/12/21 reported as PAD 30, SONAL 45 ( which I was told, was good for him).? He presented to [facility] with dizziness, HAMILTON, N/V on 07/17/21.? CXR showed NAD. On exam he has had LE edema, which he states was present even upon discharge from [facility]. He has visable JVD. Able to obtain cardiomems reading 07/19: PAD 45, SONAL 64. His Torsemide was changed to Lasix 80mg IV bid and was given Metolazone 5mg on 07/19. Hospitalist has added daily K supplement. His Cr ángel up to 2.43 07/21 and IV Lasix was changed back to usual home Torsemide. Home Metolazone remained on hold. Cardiomems reading from 07/22 PAD 36, SONAL 49. On exam today he continues to have same pitting leg edema, mostly knee to upper thighs. He has JVD which could be V waves from TR according to Dr Burnett. Wearing O2 with nasal cannula at 2 liters which he states is his usual home dose. Denies feeling sob. Labs reviewed today, K 2.8, Cr 2.02. Most likely claudio ccurate fluid balance as he did have CBI infusion last week. Balance is listed as Neg 12 liters this admit. He is hoping to be discharged in next 1-2 days. Yesterday Hydarazine was recommended as afterload insurance auditor yet not started. His BP this am is 111/60. Recommend that Amlodipine be stopped and Hydralazine started. ( home list dose include hydralazine). Continue Imdur. Recommend [facility] of [facility] as outpt for better HF management. Continue Torsemide. Needs aggressive K replacement today. Continue Strict I+O monitoring while inpt. Needs ongoing treatment for his DARLENE with CPAP use at night. Increase activity as tolerated. We will sign off. After discharge, he will follow with Dr Power, his windows architect at [facility] and resume daily cardiomems readings. <Hilda Barney er, DEMOGRAPHER-C - Last Filed: 07/25/21 11:51> [facility] admit for acute on chronic systolic and diastolic HF from 06/26 - 07/13. Discharge summary reviewed and notes indicate he was discharged around 15 liters and discharge weight was 295lb. His discharge diuretics included Torsemide 100mg bid and Metolazone 5 mg daily.? Echo done at [facility] on 12/05/20 shows EF 50%, no regional WMA, mild , mod pulm HTN. He has a cardiomems PA sensor in place and follows with [facility] as outpt. Cardiomems reading done 07/12/21 reported as PAD 30, SONAL 45 ( which I was told, was good for him).? He presented to [facility] with dizziness, H[place]IL[place], N/V on 07/17/21.? CXR showed NAD. On exam he has had LE edema, which he states was present even upon discharge from [facility]. He has visable JVD. Able to obtain cardiomems reading 07/19: PAD 45, SONAL 64. His Torsemide was changed to Lasix 80mg IV bid and was given Metolazone 5mg on 07/19. Hospitalist has added daily K supplement. His Cr ángel up to 2.43 07/21 and IV Lasix was changed back to usual home Torsemide. Home Metolazone remained on hold. Cardiomems reading from 07/22 PAD 36, SONAL 49. On exam today he continues to have same pitting leg edema, mostly knee to upper thighs. He has JVD which could be V waves from TR according to Dr Burnett. Wearing O2 with nasal cannula at 2 liters which he states is his usual home dose. Denies feeling sob. Labs reviewed today, K 2.8, Cr 2.02. Most likely inaccurate fluid balance as he did have CBI infusion last week. Balance is listed as Neg 12 liters this admit. He is hoping to be discharged in next 1-2 days. Yesterday Hydarazine was recommended as afterload insurance auditor yet not started. His BP this am is 111/60. Recommend that Amlodipine be stopped and Hydralazine started. ( home list dose include hydralazine). Continue Imdur. Recommend us of [facility] as outpt for better HF management. Continue Torsemide. Needs aggressive K replacement today. Continue Strict I+O monitoring while inpt. Needs ongoing treatment for his DARLENE with CPAP use at night. Increase activity as tolerated. We will sign off. After discharge, he will follow with Dr Power, his windows architect at [facility] and resume daily cardiomems readings. Patient seen and examined. Case discussed with Hilda Conway. Patient with heart failure preserved ejection fraction with chronic atrial fibrillation. Persistently elevated pulmonary artery diastolic pressure noted on CardioMEMS reading. This is suggestive of elevated left ventricular filling pressures and under diuresis. However is on torsemide 100 mg b.i.d. and with further diuresis has had worsening creatinine. He is currently not complain of shortness of breath but mostly related to catheter issues. Complain of pain in the scrotal area. Still having bleeding around the catheter. His creatinine is stabilized. Has not been on Aldactone therapy due to elevated creatinine. Consider addition of empagliflozin for heart failure management as per recent scientific data. Continue to monitor CardioMEMS reading by his primary team. Continue to aggressively replace his electrolytes. Heart failure management was discussed. Chronic atrial fibrillation only manage the rate control most likely leading to heart failure syndrome. Continue rate control strategy at this point time. Currently on warfarin therapy. Maintain target INR between 2 and 3. Given his acute CVA on therapeutic INRs, Plavix has been added. However this is been complicated by hematuria. Follow-up with urology. Higher risk for stroke was discussed with the patient. Follow-up with his primary windows architect. Will sign of the case at this point in time <René Lopez MD - Last Filed: 07/25/21 15:12> (2) Atrial fibrillation: Status: Acute <KEYANNA Burdick - Last Filed: 07/25/21 11:51> Assessment and Plan: Chronic afib. Rates have been controlled this admission. He is on Metoprolol for heart rate control. On Coumadin for anticoagulation. INR has been therapeutic to supratherapeutic this admit. Prior hematuria has resolved. INR 2.1 today. Continue current Tx. <KEYANNA Burdick - Last Filed: 07/25/21 11:51> (3) Current use of anticoagulant therapy: Status: Acute <KEYANNA Burdick - Last Filed: 07/25/21 11:51> (4) Gross hematuria: Status: Acute <KEYANNA Burdick - Last Filed: 07/25/21 11:51> Assessment and Plan: Resolved <KEYANNA Burdick - Last Filed: 07/25/21 11:51> (5) CVA (cerebral vascular accident): Status: Acute <KEYANNA Burdick - Last Filed: 07/25/21 11:51> Assessment and Plan: Acute posterior circulation CVA seen on MRI this admit. Symptoms of headache, dizziness, spinning, nausea had been much improved, however today he does report increased headache again.? Has been seen by Neurology with recommendation for PT/ OT. Pt tells me he does not want to go to rehab. He had been started on Plavix in addition to coumadin, which was then placed on hold due to the hematuria that had been present. Should be readdressed now that he maturia resolved. <KEYANNA Burdick - Last Filed: 07/25/21 11:51> Fall Risk Details Current Medications: Current Medications Acetaminophen (Acetaminophen 325 Mg Tablet) 650 mg PO Q6H PRN PRN Reason: Pain, Mild (Pain Scale 1-3) Last Admin: 07/25/21 00:23 Dose: 650 mg Documented by: Al Hydroxide/Mg Hydroxide (Magnesium Hydrox/Alum Hydrox 30 Ml Oral.Susp) 30 ml PO Q4H PRN PRN Reason: heartbirun Last Admin: 07/19/21 00:23 Dose: 30 ml Documented by: Amitriptyline HCl (Amitriptyline Hcl 50 Mg Tablet) 150 mg PO BEDTIME [facility] Last Admin: 07/24/21 20:45 Dose: 150 mg Documented by: Amitriptyline HCl (Amitriptyline Hcl 50 Mg Tablet) 50 mg PO DAILY [facility] Last Admin: 07/25/21 08:13 Dose: 50 mg Documented by: Amlodipine Besylate (Amlodipine Besylate 5 Mg Tablet) 5 mg PO DAILY [facility]; Protocol Last Admin: 07/25/21 08:06 Dose: 5 mg Documented by: Ascorbic Acid (Ascorbic Acid 500 Mg Tablet) 500 mg PO DAILY [facility] Last Admin: 07/25/21 08:07 Dose: 500 mg Documented by: Atorvastatin Calcium (Atorvastatin Calcium 80 Mg Tablet) 80 mg PO DAILY [facility] Last Admin: 07/25/21 08:13 Dose: 80 mg Documented by: Bismuth Subsalicylate (Bismuth Subsalicylate Liquid 524 Mg/30 Ml Oral.Susp) 524 mg PO QID PRN PRN Reason: Indigestion Last Admin: 07/18/21 15:06 Dose: 524 mg Documented by: Dextrose (Dextrose 50 % 25 Gm/50 Ml Syringe) 25 gm IVPUSH Q15M PRN; Protocol PRN Reason: per Hypoglycemia Standing Ord. Docusate Sodium (Docusate Sodium 100 Mg Capsule) 100 mg PO DAILY PRN PRN Reason: Constipation Glucose (Glucose Gel 15 Gm Gel..Gram.) 15 gm PO Q15M PRN; Protocol PRN Reason: per Hypoglycemia Standing Ord. Insulin Human Lispro (Insulin Lispro 100 Unit/Ml 3 Ml Vial) 0 unit SUBCUT QIDACHS [facility]; Protocol Last Admin: 07/25/21 07:55 Dose: Not Given Documented by: Isosorbide Mononitrate (Isosorbide Mononitrate 60 Mg Tab.Er.24h) 60 mg PO DAILY [facility]; Protocol Last Admin: 07/25/21 08:07 Dose: 60 mg Documented by: Metoprolol Succinate (Metoprolol Succinate Er 25 Mg Tab.Er.24h) 25 mg PO DAILY [facility]; Protocol Last Admin: 07/25/21 08:07 Dose: 25 mg Documented by: Omeprazole (Omeprazole 40 Mg Capsule.Dr) 40 mg PO BID@0630,1630 [facility] Last Admin: 07/25/21 06:04 Dose: 40 mg Documented by: Ondansetron HCl (Ondansetron Hcl 4 Mg/2 Ml Vial) 4 mg IVPUSH Q8H PRN PRN Reason: Nausea and Vomiting Last Admin: 07/19/21 06:16 Dose: 4 mg Documented by: Oxycodone HCl (Oxycodone Hcl Immed Release 5 Mg Tablet) 5 mg PO Q4H PRN PRN Reason: Pain, Moderate (Pain Scale 4-6 Last Admin: 07/25/21 09:34 Dose: 5 mg Documented by: Pharmacy Consult (Consult Rx Perform Med Rec) 1 each MISCELLANE ONCE PRN PRN Reason: Consult order Potassium Chloride (Potassium Chloride Er 20 Meq Tab.Er.Prt) 40 meq PO BIDPC [facility] Last Admin: 07/25/21 09:34 Dose: 40 meq Documented by: Sodium Chloride (0.9 % Sodium Chloride Flush 3 Ml Syringe) [address] [facility] Last Admin: 07/25/21 09:34 Dose: 3 ml Documented by: Torsemide (Torsemide 20 Mg Tablet) 100 mg PO BID@0800,1500 [facility]; Protocol Last Admin: 07/25/21 08:07 Dose: 100 mg Documented by: Warfarin Sodium (Warfarin Sodium 2 Mg Tablet) 2 mg PO DAILY@1800 [facility] <KEYANNA Burdick - Last Filed: 07/25/21 11:51> Time Spent With Patient Time: Total time spent is greater than 50% in coordination of care (as documented) at patient's floor/unit and/or counseling patient: <KEYANNA Burdick Last Filed: 07/25/21 11:51> Time with patient: 25 - 35 minutes <KEYANNA Burdick Last Filed: 07/25/21 11:51> Progress Note: Quality Stroke Does the patient have a stroke diagnosis?: No <KEYANNA Burdick Filed: 07/25/21 11:51> Procedures Date of Service Date of Service: 07/25/21 <KEYANNA Burdick - Last Filed: 07/25/21 11:51>
--- NOTE | 2021-07-25 11:47 | P.PNIM_ITS ---
Subjective Subjective Date of Service: 07/25/21 Interval History: Complaining of headache, Mcknight catheter with clear urine, refusing to participate with physical therapy complaining of pain at site of Mcknight catheter, denies fever chills, no nausea no vomiting no other acute issues overnight. Review of Systems Review of Systems: Yes all other systems are reviewed and are negative Physical Exam Vital Signs: Vital Signs: Last Vital Signs Temp 98.2 F 07/25/21 07:40 Pulse 58 07/25/21 07:40 Resp 18 07/25/21 07:40 BP 111/60 07/25/21 07:40 Pulse Ox 95 07/25/21 07:40 Oxygen Flow Rate 3 07/22/21 04:00 BMI result Body Mass Index 42.0 Const: Other: Gen: in no acute distress Neck: supple, no increased JVD Lungs: diminished at bases bilaterally Heart: irregularly irregular, no murmurs Abd: soft, non-tender, non-distended, obese : Mcknight with clear urine, scrotal swelling Ext: venous stasis hyperpigmentation to shins, 1+ BLE edema Skin: warm/well-perfused Neuro: alert and oriented x3, no focal findings Psych: appropriate affect ? Objective Data Active Medications Acetaminophen (Acetaminophen 325 Mg Tablet) 650 mg PO Q6H PRN PRN Reason: Pain, Mild (Pain Scale 1-3) Last Admin: 07/25/21 00:23 Dose: 650 mg Documented by: JOSE Al Hydroxide/Mg Hydroxide (Magnesium Hydrox/Alum Hydrox 30 Ml Oral.Susp) 30 ml PO Q4H PRN PRN Reason: heartbirun Last Admin: 07/19/21 00:23 Dose: 30 ml Documented by: GIL Amitriptyline HCl (Amitriptyline Hcl 50 Mg Tablet) 150 mg PO BEDTIME [facility] Last Admin: 07/24/21 20:45 Dose: 150 mg Documented by: LUDIN Amitriptyline HCl (Amitriptyline Hcl 50 Mg Tablet) 50 mg PO DAILY [facility] Last Admin: 07/25/21 08:13 Dose: 50 mg Documented by: RYLEE Amlodipine Besylate (Amlodipine Besylate 5 Mg Tablet) 5 mg PO DAILY [facility]; Protocol Last Admin: 07/25/21 08:06 Dose: 5 mg Documented by: RYLEE Ascorbic Acid (Ascorbic Acid 500 Mg Tablet) 500 mg PO DAILY [facility] Last Admin: 07/25/21 08:07 Dose: 500 mg Documented by: RYLEE Atorvastatin Calcium (Atorvastatin Calcium 80 Mg Tablet) 80 mg PO DAILY [facility] Last Admin: 07/25/21 08:13 Dose: 80 mg Documented by: RYLEE Bismuth Subsalicylate (Bismuth Subsalicylate Liquid 524 Mg/30 Ml Oral.Susp) 524 mg PO QID PRN PRN Reason: Indigestion Last Admin: 07/18/21 15:06 Dose: 524 mg Documented by: LORE Dextrose (Dextrose 50 % 25 Gm/50 Ml Syringe) 25 gm IVPUSH Q15M PRN; Protocol PRN Reason: per Hypoglycemia Standing Ord. Docusate Sodium (Docusate Sodium 100 Mg Capsule) 100 mg PO DAILY PRN PRN Reason: Constipation Glucose (Glucose Gel 15 Gm Gel..Gram.) 15 gm PO Q15M PRN; Protocol PRN Reason: per Hypoglycemia Standing Ord. Insulin Human Lispro (Insulin Lispro 100 Unit/Ml 3 Ml Vial) 0 unit SUBCUT QIDACHS [facility]; Protocol Last Admin: 07/25/21 07:55 Dose: Not Given Documented by: RYLEE Non-Admin Reason: No Insulin Coverage Isosorbide Mononitrate (Isosorbide Mononitrate 60 Mg Tab.Er.24h) 60 mg PO DAILY [facility]; Protocol Last Admin: 07/25/21 08:07 Dose: 60 mg Documented by: RYLEE Metoprolol Succinate (Metoprolol Succinate Er 25 Mg Tab.Er.24h) 25 mg PO DAILY [facility]; Protocol Last Admin: 07/25/21 08:07 Dose: 25 mg Documented by: RYLEE Omeprazole (Omeprazole 40 Mg Capsule.Dr) 40 mg PO BID@0630,1630 [facility] Last Admin: 07/25/21 06:04 Dose: 40 mg Documented by: JOSE Ondansetron HCl (Ondansetron Hcl 4 Mg/2 Ml Vial) 4 mg IVPUSH Q8H PRN PRN Reason: Nausea and Vomiting Last Admin: 07/19/21 06:16 Dose: 4 mg Documented by: SUSIEOC Oxycodone HCl (Oxycodone Hcl Immed Release 5 Mg Tablet) 5 mg PO Q4H PRN PRN Reason: Pain, Moderate (Pain Scale 4-6 Last Admin: 07/25/21 09:34 Dose: 5 mg Documented by: ROBERT Pharmacy Consult (Consult Rx Perform Med Rec) 1 each MISCELLANE ONCE PRN PRN Reason: Consult order Potassium Chloride (Potassium Chloride Er 20 Meq Tab.Er.Prt) [facility] Last Admin: 07/25/21 09:34 Dose: 40 meq Documented by: ROBERT Sodium Chloride (0.9 % Sodium Chloride Flush 3 Ml Syringe) 3 ml IVFLUSH QSHIFT [facility] Last Admin: 07/25/21 09:34 Dose: 3 ml Documented by: ROBERT Torsemide (Torsemide 20 Mg Tablet) 100 mg PO BID@0800,1500 [facility]; Protocol Last Admin: 07/25/21 08:07 Dose: 100 mg Documented by: RYLEE Warfarin Sodium (Warfarin Sodium 2 Mg Tablet) 2 mg PO DAILY@1800 [facility] Labs CBC & Chem 7: 07/24/21 05:15 07/25/21 05:15 Labs: Laboratory Results - last 24 hr 07/24/21 07/24/21 07/25/21 16:06 20:12 05:15 PT 23.7 H INR 2.1 H Anion Gap Estim Creat Clear Calc Estimated GFR POC Glucose 144 H 172 H Random Glucose Calcium Magnesium 07/25/21 07/25/21 07/25/21 05:15 07:38 11:21 PT INR Anion Gap 12 Estim Creat Clear Calc 55.5 Estimated GFR 34 POC Glucose 139 H 174 H Random Glucose 135 H Calcium 7.6 L Magnesium 2.2 Assessment and Plan (1) Gross hematuria: Status: Acute (2) Acute on chronic diastolic HF (heart failure): Status: Acute (3) CVA (cerebral vascular accident): Status: Acute (4) Atrial fibrillation: Status: Acute (5) Dizziness: Status: Acute (6) Coffee ground emesis: Status: Acute (7) Current use of anticoagulant therapy: Status: Acute Assessment and Plan: 61yo M with HTN, HFpEF with cardioMEMS device in place, HLD, CAD, DM2, DARLENE, severe pHTN, AF on warfarin, CKD3-4, hx CVA, polycythemic vera, chronic hypoxic respiratory failure on 2L recent admission to [facility] for CHF exacerbation presenting with nausea/vomiting, dizziness # acute pontine CVA - dizziness improved,c/o andrew no other neuro sxs will give tylenol and reasses - Neuro input reviewed - conitnue statin, start clopidogrel to replace ASA once hematuria resolves [pt was taking ASA prior to admission but then had CVA] # hypoK - persistent low potassium 2.8 will replete and follow BMP closely, change potassium to 40 mEq b.i.d. # nausea/vomiting with 1 episode blood-streaked vomitus - ?Brinda-Reyes tear.? has not recurred since admission - s/p IV Protonix, now on oral PPI - repeat hematocrit is stable # hematuria Clear urine this morning will clamp CBI if no bleeding will CAP Mcknight, and if able to urinate will gradually DC mcknight likely was due to traumatic Mcknight placement; hold off on starting clopdigrel, # permanent AF - continue metoprolol; d/c digoxin due to CKD - on low-dose warfarin; INR 2.1 today, if no recurrent bleeding after CBI discontinued will adjust dose of Coumadin # acute/chronic HFpEF - admitted to [facility] 06/26/21-07/13/21, diuresed 15L, discharged at 295 lb on tor semide 100mg bid + metolazone 5 mg daily - TTE 07/07/20 LVEF 50%, no RWMA, mild , mod pulm HTN - Cardiology following with CardioMEMS device measurements - s/p IV furosemide 80 mg b.i.d. and now on by mouth torsemide 100 mg b.i.d; overall net negative 12 L this admission and BUN is quite high - pt will f/u with [facility] as outpt # leukocytosis - like reactive from vomiting? WBC normalized, no sign of infection. # acute/chronic hypoxic respiratory failure - wean O2 as tolerated, on 2L at home # DM2 with hypyerglycemia, A1c 8.6 - blood sugar stable, on correction-dose lispro.? on U-500 + Trulicity at home.? Continue diabetic diet and insulin sliding scale. 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
--- NOTE | 2021-07-25 11:47 | MHC.CM.PN ---
Patient is not yet medically cleared for dc (gross Hematuria, Hypokalemia); Home with services is the goal and CM will follow for possible need to adjust the dc plan.
[2021-07-25 12:00] VITALS: BP 155/66; PULSE 60; RESP 18; TEMP 36.8; O2SAT 95
[2021-07-25] MEDS: Insulin Lispro 100 UNIT/ML 3 ML VIAL SUBCUT ×3 (12:04→20:48)
--- NOTE | 2021-07-25 13:51 | MHC.CLN ---
Addendum entered by Sarah Deluna RD 07/25/21 13:55: STAGE I TO BILATERAL BUTTOCKS IDENTIFIED 07/25. SUPPLEMENT APPROPRIATE PER NOTE BELOW TO PROMOTE WOUND HEALING. Original Note: NUTRITION CONSULT FOR POOR APPETITE. DIET=DIABETIC 2000 KCAL. PATIENT WITH CARDIAC HX, ADDING 2 G SODIUM TO DIET ORDER. VARIABLE INTAKE. ADDING GLUCERNA BID TO PROVIDE 474 KCAL, 20 G PROTEIN.
--- NOTE | 2021-07-25 15:38 | PC.NURSE ---
Pt A&O with flat affect. somewhat withdrawn. encouraged oob. worked with P.T. only tolerated standing for a minute. appetite is poor. cbi removed [address] way mcknight to drain bag. draining mayo. scrotum remains swollen and tender. pt educated on changing position to prevent pressure injury. attempted to add air loss to bed but outlet not working.
[2021-07-25 16:00] VITALS: BP 110/64; PULSE 58; RESP 18; TEMP 36.9; O2SAT 95
[2021-07-25 16:32] LABS: Glucose, Whole Blood 189 mg/dL (60-115)
[2021-07-25] MEDS: Warfarin Sodium 1 MG TABLET PO (18:56)
[2021-07-25 19:07] VITALS: BP 130/69; PULSE 61; RESP 18; TEMP 37.1; O2SAT 94
[2021-07-25 20:15] LABS: Glucose, Whole Blood 251 mg/dL (60-115)
[2021-07-25] MEDS: Amitriptyline HCl 50 MG TABLET 150 MG PO (20:49)
[2021-07-26] VITALS (8 sets, daily range): BP systolic 104–126; BP diastolic 53–74; PULSE 56–68; RESP 16–18; TEMP 36.2–36.7; O2SAT 92–95
[2021-07-26] MEDS: 0.9 % Sodium Chloride Flush 3 ML SYRINGE IVFLUSH ×4 (00:15→20:39)
[2021-07-26 06:10] LABS: INTERNATIONAL NORM RATIO 1.6 (0.9-1.1)
[2021-07-26] MEDS: Omeprazole 40 MG CAPSULE.DR PO ×2 (06:28→16:10)
[2021-07-26 07:39] LABS: Glucose, Whole Blood 139 mg/dL (60-115)
[2021-07-26] MEDS: Torsemide 20 MG TABLET 100 MG PO ×2 (08:59→16:10)
[2021-07-26] MEDS: Atorvastatin Calcium 80 MG TABLET PO (08:59)
[2021-07-26] MEDS: Isosorbide Mononitrate 60 MG TAB.ER.24H PO (09:00)
[2021-07-26] MEDS: Ascorbic Acid 500 MG TABLET PO (09:00)
[2021-07-26] MEDS: Amitriptyline HCl 50 MG TABLET PO (09:01)
[2021-07-26] MEDS: Potassium Chloride ER 20 MEQ TAB.ER.PRT 40 MEQ PO ×2 (09:01→17:11)
[2021-07-26 11:44] LABS: Glucose, Whole Blood 156 mg/dL (60-115)
[2021-07-26] MEDS: Insulin Lispro 100 UNIT/ML 3 ML VIAL SUBCUT ×3 (12:29→20:39)
--- NOTE | 2021-07-26 15:32 | P.PNIM_ITS ---
Subjective Subjective Date of Service: 07/26/21 Interval History: Complaining of pain at site of Camilo catheter , noted to have bloody urine , has been mostly in bed refused to get out of bed to chair, denies chest pain, no palpitation no lightheadedness dizziness or shortness of breath. Review of Systems Review of Systems: Yes all other systems are reviewed and are negative Physical Exam Vital Signs: Vital Signs: Last Vital Signs Temp 98.0 F 07/26/21 11:58 Pulse 62 07/26/21 11:58 Resp 18 07/26/21 11:58 BP 126/68 07/26/21 11:58 Pulse Ox 94 07/26/21 11:58 Oxygen Flow Rate 3 07/22/21 04:00 BMI result Body Mass Index 42.0 Const: Other: Gen: Awake alert in no acute distress Neck: supple, no increased JVD Lungs: diminished at bases bilaterally Heart: irregularly irregular, no murmurs Abd: soft, non-tender, non-distended, obese : Hematuria, significant scrotal swelling Ext: venous stasis hyperpigmentation to shins, significant pitting edema both thighs Skin: warm/well-perfused Neuro: alert and oriented x3, no focal findings Psych: appropriate affect Objective Data Active Medications Acetaminophen (Acetaminophen 325 Mg Tablet) 650 mg PO Q6H PRN PRN Reason: Pain, Mild (Pain Scale 1-3) Last Admin: 07/25/21 00:23 Dose: 650 mg Documented by: JOSE Al Hydroxide/Mg Hydroxide (Magnesium Hydrox/Alum Hydrox 30 Ml Oral.Susp) 30 ml PO Q4H PRN PRN Reason: heartbirun Last Admin: 07/19/21 00:23 Dose: 30 ml Documented by: JOSEUMOC Amitriptyline HCl (Amitriptyline Hcl 50 Mg Tablet) 150 mg PO BEDTIME [facility] Last Admin: 07/25/21 20:49 Dose: 150 mg Documented by: MOMO Amitriptyline HCl (Amitriptyline Hcl 50 Mg Tablet) 50 mg PO DAILY [facility] Last Admin: 07/26/21 09:01 Dose: 50 mg Documented by: RYLEE Ascorbic Acid (Ascorbic Acid 500 Mg Tablet) 500 mg PO DAILY [facility] Last Admin: 07/26/21 09:00 Dose: 500 mg Documented by: RYLEE Atorvastatin Calcium (Atorvastatin Calcium 80 Mg Tablet) 80 mg PO DAILY [facility] Last Admin: 07/26/21 08:59 Dose: 80 mg Documented by: RYLEE Bismuth Subsalicylate (Bismuth Subsalicylate Liquid 524 Mg/30 Ml Oral.Susp) 524 mg PO QID PRN PRN Reason: Indigestion Last Admin: 07/18/21 15:06 Dose: 524 mg Documented by: LORE Dextrose (Dextrose 50 % 25 Gm/50 Ml Syringe) 25 gm IVPUSH Q15M PRN; Protocol PRN Reason: per Hypoglycemia Standing Ord. Docusate Sodium (Docusate Sodium 100 Mg Capsule) 100 mg PO DAILY PRN PRN Reason: Constipation Glucose (Glucose Gel 15 Gm Gel..Gram.) 15 gm PO Q15M PRN; Protocol PRN Reason: per Hypoglycemia Standing Ord. Insulin Human Lispro (Insulin Lispro 100 Unit/Ml 3 Ml Vial) 0 unit SUBCUT QIDACHS [facility]; Protocol Last Admin: 07/26/21 12:29 Dose: 4 unit Documented by: RYLEE Isosorbide Mononitrate (Isosorbide Mononitrate 60 Mg Tab.Er.24h) 60 mg PO DAILY [facility]; Protocol Last Admin: 07/26/21 09:00 Dose: 60 mg Documented by: RYLEE Metoprolol Succinate (Metoprolol Succinate Er 25 Mg Tab.Er.24h) 25 mg PO DAILY [facility]; Protocol Last Admin: 07/26/21 09:01 Dose: Not Given Documented by: RYLEE Non-Admin Reason: Decreased Heart Rate Omeprazole (Omeprazole 40 Mg Gala.) 40 mg PO BID@0630,1630 [facility] Last Admin: 07/26/21 06:28 Dose: 40 mg Documented by: KIAN Ondansetron HCl (Ondansetron Hcl 4 Mg/2 Ml Vial) 4 mg IVPUSH Q8H PRN PRN Reason: Nausea and Vomiting Last Admin: 07/19/21 06:16 Dose: 4 mg Documented by: GIL Pharmacy Consult (Consult Rx Perform Med Rec) 1 each MISCELLANE ONCE PRN PRN Reason: Consult order Potassium Chloride (Potassium Chloride Er 20 Meq Tab.Er.Prt) 40 meq PO BIDPC [facility] Last Admin: 07/26/21 09:01 Dose: 40 meq Documented by: YRLEE Sodium Chloride (0.9 % Sodium Chloride Flush 3 Ml Syringe) 3 ml IVFLUSH QSHIFT [facility] Last Admin: 07/26/21 09:01 Dose: 3 ml Documented by: RYLEE Torsemide (Torsemide 20 Mg Tablet) 100 mg PO BID@0800,1500 [facility]; Protocol Last Admin: 07/26/21 08:59 Dose: 100 mg Documented by: RYLEE Warfarin Sodium (Warfarin Sodium 1 Mg Tablet) 1 mg PO DAILY@1800 [facility] Last Admin: 07/25/21 18:56 Dose: 1 mg Documented by: MOMO Labs CBC & Chem 7: 07/24/21 05:15 07/25/21 05:15 Labs: Laboratory Results - last 24 hr 07/25/21 07/25/21 07/26/21 16:18 19:10 05:22 PT 18.0 H INR 1.6 H POC Glucose 189 H 251 H 07/26/21 07/26/21 07:20 11:24 PT INR POC Glucose 139 H 156 H Assessment and Plan (1) Gross hematuria: Status: Acute (2) Acute on chronic diastolic HF (heart failure): Status: Acute (3) CVA (cerebral vascular accident): Status: Acute (4) Atrial fibrillation: Status: Acute (5) Dizziness: Status: Acute (6) Coffee ground emesis: Status: Acute (7) Current use of anticoagulant therapy: Status: Acute Assessment and Plan: 61yo M with HTN, HFpEF with cardioMEMS device in place, HLD, CAD, DM2, DARLENE, severe pHTN, AF on warfarin, CKD3-4, hx CVA, polycythemic vera, chronic hypoxic respiratory failure on 2L recent admission to [facility] for CHF exacerbation presenting with nausea/vomiting, dizziness # acute pontine CVA - complaining of headache, no dizziness, denies other neuro symptoms - Neuro input reviewed - conitnue statin, start clopidogrel to replace ASA once hematuria resolves [pt was taking ASA prior to admission but then had CVA] # hypoK - persistent low potassium will replete and follow BMP closely, on potassium 40 mEq b.i.d. # nausea/vomiting with 1 episode blood-streaked vomitus - ?Brinda-Reyes tear.? has not recurred since admission - s/p IV Protonix, now on oral PPI - repeat hematocrit is stable # hematuria/scrotal swelling Recurrent hematuria, continue Camilo, case discussed with Dr. Mondragon he recommend to diuresed patient and continue Camilo catheter Keep scrotum elevated likely was due to traumatic Camilo placement; hold off on starting clopdigrel, with keep INR around 2-2.5 due to hematuria # permanent AF - continue metoprolol; d/c digoxin due to CKD - on low-dose warfarin; INR 2.1 today, if no recurrent bleeding after CBI di scontinued will adjust dose of Coumadin # acute/chronic HFpEF - admitted to [facility] 06/26/21-07/13/21, diuresed 15L, discharged at 295 lb on torsemide 100mg bid + metolazone 5 mg daily - TTE 07/07/20 LVEF 50%, no RWMA, mild , mod pulm HTN - Cardiology following with CardioMEMS device measurements - s/p IV furosemide 80 mg b.i.d. and now on by mouth torsemide 100 mg b.i.d; overall net negative 15 L this admission and BUN is quite high Due to persistent significant edema will give 2.5 mg of metolazone and follow BMP - pt will f/u with [facility] as outpt # leukocytosis - like reactive from vomiting? no sign of infection. # acute/chronic hypoxic respiratory failure - wean O2 as tolerated, on 2L at home # DM2 with hypyerglycemia, A1c 8.6 - blood sugar stable, on correction-dose lispro.? on U-500 + Trulicity at home.? Continue diabetic diet and insulin sliding scale. 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
[2021-07-26 15:53] LABS: Glucose, Whole Blood 192 mg/dL (60-115)
[2021-07-26] MEDS: Acetaminophen 325 MG TABLET 650 MG PO (16:12)
[2021-07-26] MEDS: Warfarin Sodium 2 MG TABLET PO (17:11)
[2021-07-26] MEDS: metOLazone 2.5 MG TABLET PO (17:12)
--- NOTE | 2021-07-26 17:53 | P.PNUR_ITS ---
Subjective Subjective Date of Service: 07/26/21 Interval history: Scrotal edema Camilo catheter in place with effective drainage Has dependent edema through size and pelvis Elevate scrotum Continue with ambulation and diuresis Protein deconditioning with albumin 2.5 suggests high total body load water Physical Exam Vital Signs: Vital Signs: Last Vital Signs Temp 97.8 F 07/26/21 16:00 Pulse 64 07/26/21 16:00 Resp 18 07/26/21 16:00 BP 118/55 L 07/26/21 16:00 Pulse Ox 92 07/26/21 16:00 Oxygen Flow Rate 3 07/22/21 04:00 BMI result Body Mass Index 42.0 Const: General: cooperative, healthy appearing, comfortable and no acute distress Orientation/consciousness: patient oriented x3 HENMT: Face and sinus: Yes normal facial exam Mouth: moist mucous membranes Neck: Neck: Yes normal visual inspection, Yes full ROM and Yes trachea midline Chest: Chest palpation & inspection: normal inspection of the chest Resp: Effort & Inspection: normal respiratory effort, able to speak in complete sentences and no respiratory distress GI: Inspection: Yes normal to inspection Back/Spine/Pelvis: Cervical Spine: normal cervical lordosis Thoracic/Lumbar Spine: thoracic and lumbar spine normal to inspection Skin: General skin exam: no rashes or lesions noted Neuro: General: patient oriented x3, tone normal and moves all extremities Extrem: General: Yes normal to inspection and Yes capillary refill normal Urology Results Labs CBC & Chem 7: 07/24/21 05:15 07/25/21 05:15 Labs: Laboratory Results - last 24 hr 07/25/21 07/26/21 07/26/21 19:10 05:22 07:20 PT 18.0 H INR 1.6 H POC Glucose 251 H 139 H 07/26/21 07/26/21 11:24 15:29 PT INR POC Glucose 156 H 192 H Progress Note: A&P Assessment and plan (1) Anasarca: Status: Acute Assessment and Plan: Elevate scrotum Fall Risk Details Current Medications: Current Medications Acetaminophen (Acetaminophen 325 Mg Tablet) 650 mg PO Q6H PRN PRN Reason: Pain, Mild (Pain Scale 1-3) Last Admin: 07/26/21 16:12 Dose: 650 mg Documented by: Al Hydroxide/Mg Hydroxide (Magnesium Hydrox/Alum Hydrox 30 Ml Oral.Susp) 30 ml PO Q4H PRN PRN Reason: heartbirun Last Admin: 07/19/21 00:23 Dose: 30 ml Documented by: Amitriptyline HCl (Amitriptyline Hcl 50 Mg Tablet) 150 mg PO BEDTIME [facility] Last Admin: 07/25/21 20:49 Dose: 150 mg Documented by: Amitriptyline HCl (Amitriptyline Hcl 50 Mg Tablet) 50 mg PO DAILY [facility] Last Admin: 07/26/21 09:01 Dose: 50 mg Documented by: Ascorbic Acid (Ascorbic Acid 500 Mg Tablet) 500 mg PO DAILY [facility] Last Admin: 07/26/21 09:00 Dose: 500 mg Documented by: Atorvastatin Calcium (Atorvastatin Calcium 80 Mg Tablet) 80 mg PO DAILY [facility] Last Admin: 07/26/21 08:59 Dose: 80 mg Documented by: Bismuth Subsalicylate (Bismuth Subsalicylate Liquid 524 Mg/30 Ml Oral.Susp) 524 mg PO QID PRN PRN Reason: Indigestion Last Admin: 07/18/21 15:06 Dose: 524 mg Documented by: Dextrose (Dextrose 50 % 25 Gm/50 Ml Syringe) 25 gm IVPUSH Q15M PRN; Protocol PRN Reason: per Hypoglycemia Standing Ord. Docusate Sodium (Docusate Sodium 100 Mg Capsule) 100 mg PO DAILY PRN PRN Reason: Constipation Glucose (Glucose Gel 15 Gm Gel..Gram.) 15 gm PO Q15M PRN; Protocol PRN Reason: per Hypoglycemia Standing Ord. Insulin Human Lispro (Insulin Lispro 100 Unit/Ml 3 Ml Vial) 0 unit SUBCUT QIDACHS [facility]; Protocol Last Admin: 07/26/21 16:10 Dose: 2 unit Documented by: Isosorbide Mononitrate (Isosorbide Mononitrate 60 Mg Tab.Er.24h) 60 mg PO DAILY [facility]; Protocol Last Admin: 07/26/21 09:00 Dose: 60 mg Documented by: Metoprolol Succinate (Metoprolol Succinate Er 25 Mg Tab.Er.24h) 25 mg PO DAILY [facility]; Protocol Last Admin: 07/26/21 09:01 Dose: Not Given Documented by: Omeprazole (Omeprazole 40 Mg Capsule.Dr) 40 mg PO BID@0630,1630 [facility] Last Admin: 07/26/21 16:10 Dose: 40 mg Documented by: Ondansetron HCl (Ondansetron Hcl 4 Mg/2 Ml Vial) 4 mg IVPUSH Q8H PRN PRN Reason: Nausea and Vomiting Last Admin: 07/19/21 06:16 Dose: 4 mg Documented by: Pharmacy Consult (Consult Rx Perform Med Rec) 1 each MISCELLANE ONCE PRN PRN Reason: Consult order Potassium Chloride (Potassium Chloride Er 20 Meq Tab.Er.Prt) 40 meq PO BIDPC [facility] Last Admin: 07/26/21 17:11 Dose: 40 meq Documented by: Sodium Chloride (0.9 % Sodium Chloride Flush 3 Ml Syringe) 3 ml IVFLUSH QSHIFT [facility] Last Admin: 07/26/21 16:13 Dose: 3 ml Documented by: Torsemide (Torsemide 20 Mg Tablet) 100 mg PO BID@0800,1500 [facility]; Protocol Last Admin: 07/26/21 16:10 Dose: 100 mg Documented by: Warfarin Sodium (Warfarin Sodium 2 Mg Tablet) 2 mg PO DAILY@1800 [facility] Last Admin: 07/26/21 17:11 Dose: 2 mg Documented by: Time Spent With Patient Time: Total time spent is greater than 50% in coordination of care (as d ocumented) at patient's floor/unit and/or counseling patient: Time with patient: less than 15 minutes Progress Note: Quality Stroke Does the patient have a stroke diagnosis?: No
[2021-07-26 20:04] LABS: Glucose, Whole Blood 193 mg/dL (60-115)
[2021-07-26] MEDS: Amitriptyline HCl 50 MG TABLET 150 MG PO (20:39)
[2021-07-27] VITALS (8 sets, daily range): BP systolic 113–138; BP diastolic 59–72; PULSE 65–72; RESP 18–19; TEMP 34.7–37; O2SAT 93–99; BMI 39.2
[2021-07-27 06:06] LABS: MANUAL DIFF FLAG NO
[2021-07-27 06:23] LABS: INTERNATIONAL NORM RATIO 1.7 (0.9-1.1); Prothrombin Time 19.6 SEC (9.9-13.0)
[2021-07-27 06:38] LABS: Anion Gap 14 (12-20); Blood Urea Nitrogen 100 mg/dL (9-16); Calcium 7.8 mg/dL (8.4-10.2); Carbon Dioxide 32 mmol/L (22-29); Chloride 91 mmol/L (96-108); Creatinine Clr Calc Pharmacy 55.8; Estimated Glomerular Filt Rate 34; Glucose Random 138 mg/dL (60-115); Potassium 3.4 mmol/L (3.3-5.1); Sodium 134 mmol/L (135-145)
[2021-07-27] MEDS: Omeprazole 40 MG CAPSULE.DR PO ×2 (06:42→16:56)
[2021-07-27 06:43] LABS: Basophils Percent Auto 0.3 % (0-2); Eosinophils Absolute Auto 0.1 X10*3/uL (0.0-0.4); Eosinophils Percent Auto 0.8 % (0-4); Hematocrit 35.2 % (42.0-52.0); Hemoglobin 11.6 g/dl (14.0-18.0); Imm Gran Abs Auto 0.06 X10*3/uL (0.00-0.03); Imm Gran Pct Auto 0.6 % (0.0-0.4); Lymphocytes Absolute Auto 0.6 X10*3/uL (1.2-4.9); Lymphocytes Percent Auto 6.6 % (20-40); Mean Corpuscular Hemoglobin 28.2 pg (27.0-33.0); Mean Corpuscular Volume 85.6 fL (80.0-98.0); Mean Platelet Volume 10.2 fL (9.4-12.4); Monocytes Absolute Auto 1.1 X10*3/uL (0.1-1.2); Neutrophils Absolute Auto 7.8 x10*3/uL (2.0-8.3); Neutrophils Percent Auto 80.7 % (45-73); Platelet Count 224 X10*3/uL (160-400); Red Blood Count 4.11 X10*6/uL (4.60-5.80); White Blood Count 9.7 X10*3/uL (4.8-10.8)
[2021-07-27 07:48] LABS: Glucose, Whole Blood 135 mg/dL (60-115)
[2021-07-27] MEDS: Ascorbic Acid 500 MG TABLET PO (08:00)
[2021-07-27] MEDS: Isosorbide Mononitrate 60 MG TAB.ER.24H PO (08:00)
[2021-07-27] MEDS: Potassium Chloride ER 20 MEQ TAB.ER.PRT 40 MEQ PO ×2 (08:00→16:56)
[2021-07-27] MEDS: Amitriptyline HCl 50 MG TABLET PO (08:00)
[2021-07-27] MEDS: Torsemide 20 MG TABLET 100 MG PO (08:00)
[2021-07-27] MEDS: Metoprolol Succinate ER 25 MG TAB.ER.24H PO (08:00)
[2021-07-27] MEDS: Atorvastatin Calcium 80 MG TABLET PO (08:00)
[2021-07-27] MEDS: 0.9 % Sodium Chloride Flush 3 ML SYRINGE IVFLUSH (08:00)
[2021-07-27 11:39] LABS: Glucose, Whole Blood 207 mg/dL (60-115)
[2021-07-27] MEDS: metOLazone 5 MG TABLET PO (11:49)
[2021-07-27] MEDS: Insulin Lispro 100 UNIT/ML 3 ML VIAL SUBCUT ×3 (11:49→19:54)
--- NOTE | 2021-07-27 11:49 | P.PNCA_ITS ---
Subjective Subjective Date of Service: 07/27/21 <KEYANNA Burdick - Last Filed: 07/27/21 11:59> 07/27/21 <René Lopez MD - Last Filed: 07/27/21 12:25> Principal diagnosis: Dizziness, CVA, afib, chronic diastolic HF <KEYANNA Burdick - Last Filed: 07/27/21 11:59> Interval history: Cardiology follow-up for heart failure. Seen at 10:30. Today he reports that he has a headache, frontal which has been present most of his admission. He denies having dizziness, spinning sensation. No new neurological symptoms. He denies feeling short of breath when leg in bed. He is wearing CPAP at night. He wears oxygen with nasal cannula during the day and is currently on 2 L which is his norm. He denies cough, has been sleeping with head of the bed elevated. No chest pains or palpitations. Has not been moving much this admission due to report of pain from the Camilo catheter site. He has gross edema in his legs, scrotum and now into his thorax. <KEYANNA Burdick - Last Filed: 07/27/21 11:59> Review of Systems Review of Systems As above <KEYANNA Burdick Last Filed: 07/27/21 11:59> Yes all other systems are reviewed and are negative <KEYANNA Burdick Last Filed: 07/27/21 11:59> Physical Exam Vital Signs: Last Vital Signs Temp 98.6 F 07/27/21 07:27 Pulse 68 07/27/21 10:04 Resp 18 07/27/21 07:27 BP 137/72 07/27/21 10:04 Pulse Ox 97 07/27/21 10:04 Verdana 4 Oxygen Flow Verdana 4 3 Verdana 4 07/22/21 Rate Verdana 4 04:00 Verdana 4 Verdana 4 BMI result Verdana 4 Body Mass Index Verdana 4 42.0 Verdana 4 Verdana 4 <KEYANNA Burdick - Last Filed: 07/27/21 11:59> Const General: cooperative, no acute distress, alert and awake <KEYANNA Burdick ast Filed: 07/27/21 11:59> Orientation/consciousness: patient oriented x3 <Hilda Michelle ManSOFÍA-C - Last Filed: 07/27/21 11:59> Neck Neck: Yes normal visual inspection and Yes no JVD <Hilda Martinez ManROBERTOC - Last Filed: 07/27/21 11:59> Resp Other: Lungs diminished, no noted rales <Hilda Michelle ManSOFÍA-C - Last Filed: 07/27/21 11:59> Effort & Inspection: normal respiratory effort, able to speak in complete sentences and not labored <Hilda Michelle ManSOFÍA-C - Last Filed: 07/27/21 11:59> Auscultation: clear to auscultation bilaterally, no rhonchi and no wheezes <Hilda Michelle SOFÍA Conway-C - Last Filed: 07/27/21 11:59> Cardio Palpation: normal PMI <Hilda Michelle SOFÍA Conway-C - Last Filed: 07/27/21 11:59> Rate: regular rate <Hilda ConwaySOFÍA-C - Last Filed: 07/27/21 11:59> Rhythm: abnormal rhythm irregularly irregular <Hilda Michelle SOFÍA Conway-C - Last Filed: 07/27/21 11:59> Heart sounds: S1 normal heart sound present and S2 normal heart sound present <Hilda Martinez SOFÍA Conway-C - Last Filed: 07/27/21 11:59> Peripheral pulses: Peripheral pulses 2+ throughout <Hilda Michelle SOFÍA Conway-C - Last Filed: 07/27/21 11:59> Neuro General: patient oriented x3 <Hilda Michelle SOFÍA Conway-C - Last Filed: 07/27/21 11:59> Extrem Other: Pitting edema in his upper legs from knees to upper thighs and into the abdomen and lateral thorax- anasarca <Hilda Michelle SOFÍA Conway-C - Last Filed: 07/27/21 11:59> Objective Labs and Meds Result diagrams: : 07/27/21 05:30 07/27/21 05:35 <Hilda Michelle SOFÍA Conway-C - Last Filed: 07/27/21 11:59> Lab results: Laboratory Results - last 24 hr 07/26/21 07/26/21 07/27/21 15:29 19:42 05:30 WBC RBC Hgb Hct MCV MCH MCHC RDW Plt Count MPV Immature Gran % (Auto) Neut % (Auto) Lymph % (Auto) [place] % (Auto) Eos % (Auto) Baso % (Auto) Lymph # (Auto) [place] # (Auto) Eos # (Auto) Baso # (Auto) Abs Immat Gran (auto) Absolute Neuts (auto) Absolute Nucleated RBC Nucleated RBC % (auto) PT 19.6 H INR 1.7 H Sodium Potassium Chloride Carbon Dioxide Anion Gap BUN Creatinine Estim Creat Clear Calc Estimated GFR POC Glucose 192 H 193 H Random Glucose Calcium 07/27/21 07/27/21 07/27/21 05:30 05:35 07:24 WBC 9.7 RBC 4.11 L Hgb 11.6 L Hct 35.2 L MCV 85.6 MCH 28.2 MCHC 33.0 RDW 16.0 Plt Count 224 MPV 10.2 Immature Gran % (Auto) 0.6 H Neut % (Auto) 80.7 H Lymph % (Auto) 6.6 L [place] % (Auto) 11.0 Eos % (Auto) 0.8 Baso % (Auto) 0.3 Lymph # (Auto) 0.6 L [place] # (Auto) 1.1 Eos # (Auto) 0.1 Baso # (Auto) 0.0 Abs Immat Gran (auto) 0.06 H Absolute Neuts (auto) 7.8 Absolute Nucleated RBC 0.000 Nucleated RBC % (auto) 0.0 PT INR Sodium 134 L Potassium 3.4 D Chloride 91 L Carbon Dioxide 32 H Anion Gap 14 BUN 100 H Creatinine 2.01 H Estim Creat Clear Calc 55.8 Estimated GFR 34 POC Glucose 135 H Random Glucose 138 H Calcium 7.8 L 07/27/21 11:07 WBC RBC Hgb Hct MCV MCH MCHC RDW Plt Count MPV Immature Gran % (Auto) Neut % (Auto) Lymph % (Auto) [place] % (Auto) Eos % (Auto) Baso % (Auto) Lymph # (Auto) [place] # (Auto) Eos # (Auto) Baso # (Auto) Abs Immat Gran (auto) Absolute Neuts (auto) Absolute Nucleated RBC Nucleated RBC % (auto) PT INR Sodium Potassium Chloride Carbon Dioxide Anion Gap BUN Creatinine Estim Creat Clear Calc Estimated GFR POC Glucose 207 H Random Glucose Calcium <KEYANNA Burdick - Last Filed: 07/27/21 11:59> Progress Note: A&P Assessment and plan (1) Acute on chronic diastolic HF (heart failure): Status: Acute <KEYANNA Burdick - Last Filed: 07/27/21 11:59> Assessment and Plan: History of chronic diastolic heart failure with recent [facility] admission for diuresing. This admission for CVA however with evidence of fluid overload. He has been receiving his usual home torsemide 100 mg p.o. b.i.d.. He has been sedentary since admission. On exam he has gross edema in his legs from knees to upper thighs and into the scrotum, abdomen and lateral thorax. He has CardioMEMS device and his PAD readings had been elevated when checked last week. He had been given IV Lasix for a few days and his creatinine did rise. At present his creatinine is 2.01 which seems to be his baseline. With his fluid overload he was given a dose of metolazone 2.5 mg yesterday and another 5 mg today. Will try to obtain a CardioMEMS reading today. Obtain standing weight today. Will start on Bumex 0.5 mg per hour drip. Continue strict I&O monitoring. Close monitoring of electrolytes and kidney function with electrolyte replacement as warranted. We will follow <ROBERTO Burdick - Last Filed: 07/27/21 11:59> History of chronic diastolic heart failure with recent [facility] admission for diuresing. This admission for CVA however with evidence of fluid overload. He has been receiving his usual home torsemide 100 mg p.o. b.i.d.. He has been sedentary since admission. On exam he has gross edema in his legs from knees to upper thighs and into the scrotum, abdomen and lateral thorax. He has CardioMEMS device and his PAD readings had been elevated when checked last week. He had been given IV Lasix for a few days and his creatinine did rise. At present his creatinine is 2.01 which seems to be his baseline. With his fluid overload he was given a dose of metolazone 2.5 mg yesterday and another 5 mg today. Will try to obtain a CardioMEMS reading today. Obtain standing weight today. Will start on Bumex 0.5 mg per hour drip. Continue strict I&O monitoring. Close monitoring of electrolytes and kidney function with electrolyte replacement as warranted. We will follow Patient seen and case discussed with Hilda Conway. Patient remained significantly fluid overloaded. His developing more edema. Patient received 2.5 mg of metolazone yesterday. Will switch him to IV Bumex drip. Strict intake and output chart needs to be pursued. Closely follow renal function as well as electrolytes and replace as needed. Overall prognosis is very guarded. Will follow with you. <René Lopez MD - Last Filed: 07/27/21 12:25> (2) Anasarca: Status: Acute <KEYANNA Burdick - Last Filed: 07/27/21 11:59> (3) Atrial fibrillation: Status: Acute <KEYANNA Burdick - Last Filed: 07/27/21 11:59> Assessment and Plan: History of chronic atrial fibrillation. Rates currently controlled with use of low-dose metoprolol. He is on Coumadin for anticoagulation. He has had issues with hematuria this admission and supratherapeutic INRs. Current INR 1.7. Continue Coumadin with INR goal 2-3. 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 Has been seen by Neurology. PT/OT are being done. <KEYANNA Burdick - Last Filed: 07/27/21 11:59> Fall Risk Details Current Medications: Current Medications Acetaminophen (Acetaminophen 325 Mg Tablet) 650 mg PO Q6H PRN PRN Reason: Pain, Mild (Pain Scale 1-3) Last Admin: 07/26/21 16:12 Dose: 650 mg Documented by: Al Hydroxide/Mg Hydroxide (Magnesium Hydrox/Alum Hydrox 30 Ml Oral.Susp) 30 ml PO Q4H PRN PRN Reason: heartbirun Last Admin: 07/19/21 00:23 Dose: 30 ml Documented by: Amitriptyline HCl (Amitriptyline Hcl 50 Mg Tablet) 150 mg PO BEDTIME [facility] Last Admin: 07/26/21 20:39 Dose: 150 mg Documented by: Amitriptyline HCl (Amitriptyline Hcl 50 Mg Tablet) 50 mg PO DAILY [facility] Last Admin: 07/27/21 08:00 Dose: 50 mg Documented by: Ascorbic Acid (Ascorbic Acid 500 Mg Tablet) 500 mg PO DAILY [facility] Last Admin: 07/27/21 08:00 Dose: 500 mg Documented by: Atorvastatin Calcium (Atorvastatin Calcium 80 Mg Tablet) 80 mg PO DAILY [facility] Last Admin: 07/27/21 08:00 Dose: 80 mg Documented by: Bismuth Subsalicylate (Bismuth Subsalicylate Liquid 524 Mg/30 Ml Oral.Susp) 524 mg PO QID PRN PRN Reason: Indigestion Last Admin: 07/18/21 15:06 Dose: 524 mg Documented by: Dextrose (Dextrose 50 % 25 Gm/50 Ml Syringe) 25 gm IVPUSH Q15M PRN; Protocol PRN Reason: per Hypoglycemia Standing Ord. Docusate Sodium (Docusate Sodium 100 Mg Capsule) 100 mg PO DAILY PRN PRN Reason: Constipation Glucose (Glucose Gel 15 Gm Gel..Gram.) 15 gm PO Q15M PRN; Protocol PRN Reason: per Hypoglycemia Standing Ord. Insulin Human Lispro (Insulin Lispro 100 Unit/Ml 3 Ml Vial) 0 unit SUBCUT QIDACHS [facility]; Protocol Last Admin: 07/27/21 07:52 Dose: Not Given Documented by: Isosorbide Mononitrate (Isosorbide Mononitrate 60 Mg Tab.Er.24h) 60 mg PO DAILY [facility]; Protocol Last Admin: 07/27/21 08:00 Dose: 60 mg Documented by: Metolazone (Metolazone 5 Mg Tablet) 5 mg PO DAILY [facility] Metoprolol Succinate (Metoprolol Succinate Er 25 Mg Tab.Er.24h) 25 mg PO DAILY [facility]; Protocol Last Admin: 07/27/21 08:00 Dose: 25 mg Documented by: Omeprazole (Omeprazole 40 Mg Capsule.Dr) 40 mg PO BID@0630,1630 [facility] Last Admin: 07/27/21 06:42 Dose: 40 mg Documented by: Ondansetron HCl (Ondansetron Hcl 4 Mg/2 Ml Vial) 4 mg IVPUSH Q8H PRN PRN Reason: Nausea and Vomiting Last Admin: 07/19/21 06:16 Dose: 4 mg Documented by: Pharmacy Consult (Consult Rx Perform Med Rec) 1 each MISCELLANE ONCE PRN PRN Reason: Consult order Potassium Chloride (Potassium Chloride Er 20 Meq Tab.Er.Prt) 40 meq PO BIDPC [facility] Last Admin: 07/27/21 08:00 Dose: 40 meq Documented by: Sodium Chloride (0.9 % Sodium Chloride Flush 3 Ml Syringe) 3 ml IVFLUSH QSHIFT [facility] Last Admin: 07/27/21 08:00 Dose: 3 ml Documented by: Torsemide (Torsemide 20 Mg Tablet) 100 mg PO BID@0800,1500 [facility]; Protocol Last Admin: 07/27/21 08:00 Dose: 100 mg Documented by: Warfarin Sodium (Warfarin Sodium 2 Mg Tablet) 2 mg PO DAILY@1800 [facility] Last Admin: 07/26/21 17:11 Dose: 2 mg Documented by: <KEYANNA Burdick - Last Filed: 07/27/21 11:59> Time Spent With Patient Time: Total time spent is greater than 50% in coordination of care (as doc umented) at patient's floor/unit and/or counseling patient: <KEYANNA Burdick - Last Filed: 07/27/21 11:59> Time with patient: 15 - 24 minutes <KEYANNA Burdick - Last Filed: 07/27/21 11:59> Progress Note: Quality Stroke Does the patient have a stroke diagnosis?: No <KEYANNA Burdick - Last Filed: 07/27/21 11:59> Procedures Date of Service Date of Service: 07/27/21 <KEYANNA Burdick - Last Filed: 07/27/21 11:59>
[2021-07-27] MEDS: oxyCODONE HCl Immed Release 5 MG TABLET PO (12:43)
[2021-07-27] MEDS: Bumetanide 25 MG in Container,Empty 0 ML IVCONT (12:43)
--- NOTE | 2021-07-27 13:37 | P.PNIM_ITS ---
Subjective Subjective Date of Service: 07/27/21 Interval History: complaining of persistent pain around Camilo catheter and c/o pain with scrotal swelling, every day refusing to be out of bed to chair, refusing meals, denies shortness of breath no chest pain no other acute events overnight , urine clear in Camilo bag. Review of Systems Review of Systems: Yes all other systems are reviewed and are negative Physical Exam Verdana 4l Vital Signs: Verdana 4d Verdana 4d Vital Signs: Verdana 4d Verdana 4Bd Last Vital Signs Verdana 4d Office Assistant New 4d Office Assistant New 4d Temp 98.6 F 07/27/21 11:54 Office Assistant New 4d Pulse 72 07/27/21 11:54 Office Assistant New 4d Resp 19 07/27/21 11:54 BP 138/69 07/27/21 11:54 Pulse Ox 93 07/27/21 11:54 Oxygen Flow Rate 3 07/22/21 04:00 BMI result Body Mass Index 39.2 Const: Other: Gen:? Awake alert in no acute distress Neck: supple, no increased JVD Lungs: diminished at bases bilaterally Heart: irregularly irregular, no murmurs Abd: soft, non-tender, non-distended, obese :? Hematuria, significant scrotal swelling , blood around Camilo catheter Ext: venous stasis hyperpigmentation to shins, significant pitting edema both thighs Skin: warm/well-perfused Neuro: alert and oriented x3, no focal findings Psych: appropriate affect Objective Data Active Medications Acetaminophen (Acetaminophen 325 Mg Tablet) 650 mg PO Q6H PRN PRN Reason: Pain, Mild (Pain Scale 1-3) Last Admin: 07/26/21 16:12 Dose: 650 mg Documented by: KEITH Al Hydroxide/Mg Hydroxide (Magnesium Hydrox/Alum Hydrox 30 Ml Oral.Susp) 30 ml PO Q4H PRN PRN Reason: heartbirun Last Admin: 07/19/21 00:23 Dose: 30 ml Documented by: GIL Amitriptyline HCl (Amitriptyline Hcl 50 Mg Tablet) 150 mg PO BEDTIME [facility] Last Admin: 07/26/21 20:39 Dose: 150 mg Documented by: WHITNEY Amitriptyline HCl (Amitriptyline Hcl 50 Mg Tablet) 50 mg PO DAILY [facility] Last Admin: 07/27/21 08:00 Dose: 50 mg Documented by: RYLEE Ascorbic Acid (Ascorbic Acid 500 Mg Tablet) 500 mg PO DAILY [facility] Last Admin: 07/27/21 08:00 Dose: 500 mg Documented by: RYLEE Atorvastatin Calcium (Atorvastatin Calcium 80 Mg Tablet) 80 mg PO DAILY [facility] Last Admin: 07/27/21 08:00 Dose: 80 mg Documented by: RYLEE Bismuth Subsalicylate (Bismuth Subsalicylate Liquid 524 Mg/30 Ml Oral.Susp) 524 mg PO QID PRN PRN Reason: Indigestion Last Admin: 07/18/21 15:06 Dose: 524 mg Documented by: LORE Dextrose (Dextrose 50 % 25 Gm/50 Ml Syringe) 25 gm IVPUSH Q15M PRN; Protocol PRN Reason: per Hypoglycemia Standing Ord. Docusate Sodium (Docusate Sodium 100 Mg Capsule) 100 mg PO DAILY PRN PRN Reason: Constipation Glucose (Glucose Gel 15 Gm Gel..Gram.) 15 gm PO Q15M PRN; Protocol PRN Reason: per Hypoglycemia Standing Ord. Bumetanide 25 mg/ IV (Miscellaneous Supplies) 100 mls @ 2 mls/hr IVCONT .Q24H [facility] Last Admin: 07/27/21 12:43 Dose: 0.5 mg/hr, 2 mls/hr Documented by: RYLEE Insulin Human Lispro (Insulin Lispro 100 Unit/Ml 3 Ml Vial) 0 unit SUBCUT QIDACHS [facility]; Protocol Last Admin: 07/27/21 11:49 Dose: 6 unit Documented by: RYLEE Isosorbide Mononitrate (Isosorbide Mononitrate 60 Mg Tab.Er.24h) 60 mg PO DAILY [facility]; Protocol Last Admin: 07/27/21 08:00 Dose: 60 mg Documented by: RYLEE Metolazone (Metolazone 5 Mg Tablet) 5 mg PO DAILY [facility] Last Admin: 07/27/21 11:49 Dose: 5 mg Documented by: RYLEE Metoprolol Succinate (Metoprolol Succinate Er 25 Mg Tab.Er.24h) 25 mg PO DAILY [facility]; Protocol Last Admin: 07/27/21 08:00 Dose: 25 mg Documented by: RYLEE Omeprazole (Omeprazole 40 Mg Capsule.) 40 mg PO BID@0630,1630 [facility] Last Admin: 07/27/21 06:42 Dose: 40 mg Documented by: KIAN Ondansetron HCl (Ondansetron Hcl 4 Mg/2 Ml Vial) 4 mg IVPUSH Q8H PRN PRN Reason: Nausea and Vomiting Last Admin: 07/19/21 06:16 Dose: 4 mg Documented by: GIL Oxycodone HCl (Oxycodone Hcl Immed Release 5 Mg Tablet) 5 mg PO Q4H PRN PRN Reason: Pain, Severe (Pain Scale 7-10) Last Admin: 07/27/21 12:43 Dose: 5 mg Documented by: RYLEE Pharmacy Consult (Consult Rx Perform Med Rec) 1 each MISCELLANE ONCE PRN PRN Reason: Consult order Potassium Chloride (Potassium Chloride Er 20 Meq Tab.Er.Prt) 40 meq PO BIDPC [facility] Last Admin: 07/27/21 08:00 Dose: 40 meq Documented by: RYLEE Sodium Chloride (0.9 % Sodium Chloride Flush 3 Ml Syringe) 3 ml IVFLUSH QSHIFT [facility] Last Admin: 07/27/21 08:00 Dose: 3 ml Documented by: RYLEE Warfarin Sodium (Warfarin Sodium 2 Mg Tablet) 2 mg PO DAILY@1800 [facility] Last Admin: 07/26/21 17:11 Dose: 2 mg Documented by: RONQC Labs CBC & Chem 7: 07/27/21 05:30 07/27/21 05:35 Labs: Laboratory Results - last 24 hr 07/26/21 07/26/21 07/27/21 15:29 19:42 05:30 MCV MCH MCHC RDW Plt Count MPV Immature Gran % (Auto) Neut % (Auto) Lymph % (Auto) [place] % (Auto) Eos % (Auto) Baso % (Auto) Lymph # (Auto) [place] # (Auto) Eos # (Auto) Baso # (Auto) Abs Immat Gran (auto) Absolute Neuts (auto) Absolute Nucleated RBC Nucleated RBC % (auto) PT 19.6 H INR 1.7 H Anion Gap Estim Creat Clear Calc Estimated GFR POC Glucose 192 H 193 H Random Glucose Calcium 07/27/21 07/27/21 07/27/21 05:30 05:35 07:24 MCV 85.6 MCH 28.2 MCHC 33.0 RDW 16.0 Plt Count 224 MPV 10.2 Immature Gran % (Auto) 0.6 H Neut % (Auto) 80.7 H Lymph % (Auto) 6.6 L [place] % (Auto) 11.0 Eos % (Auto) 0.8 Baso % (Auto) 0.3 Lymph # (Auto) 0.6 L [place] # (Auto) 1.1 Eos # (Auto) 0.1 Baso # (Auto) 0.0 Abs Immat Gran (auto) 0.06 H Absolute Neuts (auto) 7.8 Absolute Nucleated RBC 0.000 Nucleated RBC % (auto) 0.0 PT INR Anion Gap 14 Estim Creat Clear Calc 55.8 Estimated GFR 34 POC Glucose 135 H Random Glucose 138 H Calcium 7.8 L 07/27/21 11:07 MCV MCH MCHC RDW Plt Count MPV Immature Gran % (Auto) Neut % (Auto) Lymph % (Auto) [place] % (Auto) Eos % (Auto) Baso % (Auto) Lymph # (Auto) [place] # (Auto) Eos # (Auto) Baso # (Auto) Abs Immat Gran (auto) Absolute Neuts (auto) Absolute Nucleated RBC Nucleated RBC % (auto) PT INR Anion Gap Estim Creat Clear Calc Estimated GFR POC Glucose 207 H Random Glucose Calcium Assessment and Plan (1) Gross hematuria: Status: Acute (2) Acute on chronic diastolic HF (heart failure): Status: Acute (3) CVA (cerebral vascular accident): Status: Acute (4) Atrial fibrillation: Status: Acute (5) Dizziness: Status: Acute (6) Coffee ground emesis: Status: Acute (7) Current use of anticoagulant therapy: Status: Acute Plan 61yo M with HTN, HFpEF with cardioMEMS device in place, HLD, CAD, DM2, DARLENE, severe pHTN, AF on warfarin, CKD3-4, hx CVA, polycythemic vera, chronic hypoxic respiratory failure on 2L recent admission to [facility] for CHF exacerbation presenting with nausea/vomiting, dizziness # acute pontine CVA - no headache and dizziness this a.m., denies other neuro symptoms - Neuro input reviewed - conitnue statin, start clopidogrel to replace ASA once hematuria resolves [pt was taking ASA prior to admission but then had CVA] # hypoK - repleted, continue potassium 40 mEq b.i.d. while being diuresed. # nausea/vomiting with 1 episode blood-streaked vomitus - ?Brinda-Reyes tear.? has not recurred since admission - s/p IV Protonix, now on oral PPI - repeat hematocrit is stable # hematuria/scrotal swelling Urine clear this morning , some bleeding around Camilo ,continue Camilo, Keep scrotum elevated, and aggressively diurese likely was due to traumatic Camilo placement; hold off on starting clopdigrel, with keep INR around 2-2.5 due to hematuria # permanent AF - continue metoprolol; d/c digoxin due to CKD - on low-dose warfarin; INR 1.7 today, cont. Coumadin # acute/chronic HFpEF - admitted to [facility] 06/26/21-07/13/21, diuresed 15L, discharged at 295 lb on torsemide 100mg bid + metolazone 5 mg daily - TTE 07/07/20 LVEF 50%, no RWMA, mild , mod pulm HTN - Cardiology following with CardioMEMS device measurements to be obtained today - s/p IV furosemide 80 mg b.i.d, now on by mouth torsemide 100 mg b.i.d, given 1 dose of metolazone 2.5 mg yesterday, will repeat 1 dose of metolazone 5 mg today case discussed with Cardiology they recommend to discontinue torsemide and recommended IV Bumex drip 0.5 mg and to increase to 1 mg if noted to have no significant output will follow daily BNP BMP while being diuresed # leukocytosis - resolved,likely was reactive from vomiting? no sign of infection. # acute/chronic hypoxic respiratory failure - wean O2 as tolerated, on 2L at home # DM2 with hypyerglycemia, A1c 8.6 - blood sugar stable, on correction-dose lispro.? on U-500 + Trulicity at home.? Continue diabetic diet and insulin sliding scale. 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
[2021-07-27] MEDS: hydrALAZINE HCl 25 MG TABLET PO ×2 (14:18→19:53)
--- NOTE | 2021-07-27 15:41 | MHC.CM.PN ---
Patient is not yet medically cleared for discharge; Home with services is the goal and CM will follow for possible need to adjust the dc plan.
[2021-07-27 16:47] LABS: Glucose, Whole Blood 198 mg/dL (60-115)
[2021-07-27] MEDS: Warfarin Sodium 2 MG TABLET PO (17:53)
[2021-07-27 19:50] LABS: Glucose, Whole Blood 140 mg/dL (60-115)
[2021-07-27] MEDS: Amitriptyline HCl 50 MG TABLET 150 MG PO (19:54)
[2021-07-28] VITALS (8 sets, daily range): BP systolic 114–129; BP diastolic 54–72; PULSE 57–74; RESP 16–18; TEMP 36–36.9; O2SAT 92–98; BMI 39.2
[2021-07-28] MEDS: Omeprazole 40 MG CAPSULE.DR PO ×2 (05:50→16:33)
[2021-07-28 05:52] LABS: INTERNATIONAL NORM RATIO 1.9 (0.9-1.1); Prothrombin Time 21.3 SEC (9.9-13.0)
[2021-07-28 06:29] LABS: B Type Natriuretic Peptide 304 pg/mL (<100)
[2021-07-28 06:43] LABS: Anion Gap 11 (12-20); Blood Urea Nitrogen 96 mg/dL (9-16); Calcium 7.9 mg/dL (8.4-10.2); Carbon Dioxide 35 mmol/L (22-29); Chloride 90 mmol/L (96-108); Creatinine Clr Calc Pharmacy 56.6; Estimated Glomerular Filt Rate 36; Glucose Random 106 mg/dL (60-115); Potassium 3.1 mmol/L (3.3-5.1); Sodium 133 mmol/L (135-145)
[2021-07-28 07:39] LABS: Glucose, Whole Blood 118 mg/dL (60-115)
[2021-07-28] MEDS: Insulin Lispro 100 UNIT/ML 3 ML VIAL SUBCUT ×4 (08:31→20:24)
[2021-07-28] MEDS: 0.9 % Sodium Chloride Flush 3 ML SYRINGE IVFLUSH (08:32)
[2021-07-28] MEDS: oxyCODONE HCl Immed Release 5 MG TABLET PO ×2 (08:32→20:23)
[2021-07-28] MEDS: Ascorbic Acid 500 MG TABLET PO (08:32)
[2021-07-28] MEDS: Metoprolol Succinate ER 25 MG TAB.ER.24H PO (08:33)
[2021-07-28] MEDS: Isosorbide Mononitrate 60 MG TAB.ER.24H PO (08:33)
[2021-07-28] MEDS: metOLazone 5 MG TABLET PO (08:33)
[2021-07-28] MEDS: Atorvastatin Calcium 80 MG TABLET PO (08:33)
[2021-07-28] MEDS: Amitriptyline HCl 50 MG TABLET PO (08:33)
[2021-07-28] MEDS: Potassium Chloride ER 20 MEQ TAB.ER.PRT 40 MEQ PO (08:33)
[2021-07-28] MEDS: hydrALAZINE HCl 25 MG TABLET PO ×3 (08:34→20:23)
[2021-07-28] MEDS: Potassium Chloride ER 20 MEQ TAB.ER.PRT 60 MEQ PO ×2 (08:50→16:33)
[2021-07-28 12:03] LABS: Glucose, Whole Blood 125 mg/dL (60-115)
--- NOTE | 2021-07-28 12:23 | P.PNCA_ITS ---
Subjective Subjective Date of Service: 07/28/21 Principal diagnosis: Dizziness, CVA, afib, chronic diastolic HF Interval history: Patient still short of breath. Still has significant leg edema. Has been diuresing and has diuresed about 2.3 L since yesterday on Bumex drip and metolazone. He says he is feeling better. But does appear to be short of breath. His pulmonary artery diastolic pressure of still significantly elevated. Review of Systems Constitutional: Reports fatigue and Reports lethargy Cardiovascular: Reports Abdominal Distension, Denies chest pain, Reports leg edema, Denies palpitations and Reports dyspnea on exertion Respiratory: Reports no additional respiratory complaints and Reports dyspnea on exertion Gastrointestinal: Reports no additional gastrointestinal complaints Genitourinary: Reports no additional male genitourinary complaints Reports system reviewed and no additional complaints, except as documented Psychiatric: Reports no additional psychiatric complaints Endocrine: Reports fatigue and Denies palpitations Physical Exam Vital Signs: Last Vital Signs Temp 97.7 F 07/28/21 11:22 Pulse 64 07/28/21 11:22 Resp 18 07/28/21 11:22 BP 115/70 07/28/21 11:22 Pulse Ox 97 07/28/21 11:22 Verdana 4 Oxygen Flow Verdana 4 3 Verdana 4 07/22/21 Rate Verdana 4 04:00 Verdana 4 Verdana 4 BMI result Verdana 4 Body Mass Index Verdana 4 39.2 Verdana 4 Verdana 4 Objective Labs and Meds Result diagrams: 07/27/21 05:30 07/28/21 05:14 Lab results: Laboratory Results - last 24 hr 07/27/21 07/27/21 07/28/21 15:30 19:20 05:14 PT 21.3 H INR 1.9 H Sodium Potassium Chloride Carbon Dioxide Anion Gap BUN Creatinine Estim Creat Clear Calc Estimated GFR POC Glucose 198 H 140 H Random Glucose Calcium B-Natriuretic Peptide 07/28/21 07/28/21 07/28/21 05:14 05:14 07:17 PT INR Sodium 133 L Potassium 3.1 L Chloride 90 L Carbon Dioxide 35 H Anion Gap 11 L BUN 96 H Creatinine 1.91 H Estim Creat Clear Calc 56.6 Estimated GFR 36 POC Glucose 118 H Random Glucose 106 Calcium 7.9 L B-Natriuretic Peptide 304 H 07/28/21 11:27 PT INR Sodium Potassium Chloride Carbon Dioxide Anion Gap BUN Creatinine Estim Creat Clear Calc Estimated GFR POC Glucose 125 H Random Glucose Calcium B-Natriuretic Peptide Imaging Radiologist's impression: Impressions Chest X-Ray 07/27/21 11:02 IMPRESSION: Findings consistent with pulmonary vascular congestion without confluent parenchymal disease. Progress Note: A&P Assessment and plan (1) Acute on chronic diastolic HF (heart failure): Status: Acute Assessment and Plan: Patient with acute on chronic heart failure with significant fluid overload internal as anasarca. He has never had normalized pulmonary artery diastolic pressure including prior admission at [facility]. Remains clinically very fluid overloaded. Responding to current diuretic regimen with no worsening renal function at this point time. Will continue monitor closely renal function. Continue current diuretic regimen with Bumex drip as well as metolazone. Strict intake and output chart needs to be pursued. Heart failure management was discussed. Continue monitor renal function closely. Replace electrolytes as needed. Overall prognosis is guarded and patient with this advanced heart failure has been difficult to manage despite CardioMEMS device. Will continue to monitor pressures (2) Atrial fibrillation: Status: Acute Assessment and Plan: Atrial fibrillation rate controlled. Continue current rate control strategy. Continue full oral anticoagulation, currently on warfarin therapy. Maintain target INR between 2 and 3. Will continue to follow with you Fall Risk Details Current Medications: Current Medications Acetaminophen (Acetaminophen 325 Mg Tablet) 650 mg PO Q6H PRN PRN Reason: Pain, Mild (Pain Scale 1-3) Last Admin: 07/26/21 16:12 Dose: 650 mg Documented by: Al Hydroxide/Mg Hydroxide (Magnesium Hydrox/Alum Hydrox 30 Ml Oral.Susp) 30 ml PO Q4H PRN PRN Reason: heartbirun Last Admin: 07/19/21 00:23 Dose: 30 ml Documented by: Amitriptyline HCl (Amitriptyline Hcl 50 Mg Tablet) 150 mg PO BEDTIME [facility] Last Admin: 07/27/21 19:54 Dose: 150 mg Documented by: Amitriptyline HCl (Amitriptyline Hcl 50 Mg Tablet) 50 mg PO DAILY [facility] Last Admin: 07/28/21 08:33 Dose: 50 mg Documented by: Ascorbic Acid (Ascorbic Acid 500 Mg Tablet) 500 mg PO DAILY [facility] Last Admin: 07/28/21 08:32 Dose: 500 mg Documented by: Atorvastatin Calcium (Atorvastatin Calcium 80 Mg Tablet) 80 mg PO DAILY [facility] Last Admin: 07/28/21 08:33 Dose: 80 mg Documented by: Bismuth Subsalicylate (Bismuth Subsalicylate Liquid 524 Mg/30 Ml Oral.Susp) 524 mg PO QID PRN PRN Reason: Indigestion Last Admin: 07/18/21 15:06 Dose: 524 mg Documented by: Dextrose (Dextrose 50 % 25 Gm/50 Ml Syringe) 25 gm IVPUSH Q15M PRN; Protocol PRN Reason: per Hypoglycemia Standing Ord. Docusate Sodium (Docusate Sodium 100 Mg Capsule) 100 mg PO DAILY PRN PRN Reason: Constipation Glucose (Glucose Gel 15 Gm Gel..Gram.) 15 gm PO Q15M PRN; Protocol PRN Reason: per Hypoglycemia Standing Ord. Hydralazine HCl (Hydralazine Hcl 25 Mg Tablet) 25 mg PO TID [facility]; Protocol Last Admin: 07/28/21 08:34 Dose: 25 mg Documented by: Bumetanide 25 mg/ IV (Miscellaneous Supplies) 100 mls @ 2 mls/hr IVCONT .Q24H [facility] Last Admin: 07/27/21 12:43 Dose: 0.5 mg/hr, 2 mls/hr Documented by: Insulin Human Lispro (Insulin Lispro 100 Unit/Ml 3 Ml Vial) 0 unit SUBCUT QIDACHS [facility]; Protocol Last Admin: 07/28/21 08:31 Dose: 2 unit Documented by: Isosorbide Mononitrate (Isosorbide Mononitrate 60 Mg Tab.Er.24h) 60 mg PO DAILY [facility]; Protocol Last Admin: 07/28/21 08:33 Dose: 60 mg Documented by: Metolazone (Metolazone 5 Mg Tablet) 5 mg PO DAILY [facility] Last Admin: 07/28/21 08:33 Dose: 5 mg Documented by: Metoprolol Succinate (Metoprolol Succinate Er 25 Mg Tab.Er.24h) 25 mg PO DAILY [facility]; Protocol Last Admin: 07/28/21 08:33 Dose: 25 mg Documented by: Omeprazole (Omeprazole 40 Mg Capsule.) 40 mg PO BID@0630,1630 [facility] Last Admin: 07/28/21 05:50 Dose: 40 mg Documented by: Ondansetron HCl (Ondansetron Hcl 4 Mg/2 Ml Vial) 4 mg IVPUSH Q8H PRN PRN Reason: Nausea and Vomiting Last Admin: 07/19/21 06:16 Dose: 4 mg Documented by: Oxycodone HCl (Oxycodone Hcl Immed Release 5 Mg Tablet) 5 mg PO Q4H PRN PRN Reason: Pain, Severe (Pain Scale 7-10) Last Admin: 07/28/21 08:32 Dose: 5 mg Documented by: Pharmacy Consult (Consult Rx Perform Med Rec) 1 each MISCELLANE ONCE PRN PRN Reason: Consult order Potassium Chloride (Potassium Chloride Er 20 Meq Tab.Er.Prt) 60 meq PO BIDPC [facility] Last Admin: 07/28/21 08:50 Dose: 20 meq Documented by: Sodium Chloride (0.9 % Sodium Chloride Flush 3 Ml Syringe) 3 ml IVFLUSH QSHIFT [facility] Last Admin: 07/28/21 08:32 Dose: 3 ml Documented by: Warfarin Sodium (Warfarin Sodium 2 Mg Tablet) 2 mg PO DAILY@1800 [facility] Last Admin: 07/27/21 17:53 Dose: 2 mg Documented by: Time Spent With Patient Time: Total time spent is greater than 50% in coordination of care (as documented) at patient's floor/unit and/or counseling patient: Time with patient: 15 - 24 minutes Progress Note: Quality Stroke Does the patient have a stroke diagnosis?: No Procedures Date of Service Date of Service: 07/28/21
[2021-07-28] MEDS: Bumetanide 25 MG in Container,Empty 0 ML IVCONT (12:51)
--- NOTE | 2021-07-28 13:48 | PC.NURSE ---
Skin assessment completed. Patient has Stage 2 pressure wounds and blisters on bilateral buttocks. 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 Will continue to monitor. Bilateral lower extremities with hemosiderin staining and dry scales. Ordering Ammonium Lactate lotion for legs.
--- NOTE | 2021-07-28 14:55 | MHC.CLN ---
NUTRITION CONSULT FOR STAGE II WOUND TO BILATERAL BUTTOCKS. DIET=DIABETIC 2000 KCAL, 2 GRAM SODIUM. SUPPLEMENT GLUCERNA TID PROVIDES 710 KCAL, 30 G PROTEIN. INTAKE AT MEALS VARIABLE, LESS THAN 25% TO 100%. SUPPLEMENT APPROPRIATE TO PROMOTE WOUND HEALING.
--- NOTE | 2021-07-28 15:03 | P.PNIM_ITS ---
Subjective Subjective Date of Service: 07/28/21 Interval History: Complaining of scrotal pain, but better since yesterday denies shortness of breath, no nausea,no vomiting,no fever, chills, no other acute issues overnight, Camilo catheter with brown urine. Review of Systems Review of Systems: Yes all other systems are reviewed and are negative Physical Exam Verdana 4l Vital Signs: Verdana 4d Verdana 4d Vital Signs: Verdana 4d Verdana 4Bd Last Vital Signs Verdana 4d Equity Structurer New 4d Equity Structurer New 4d Temp 97.7 F 07/28/21 11:22 Equity Structurer New 4d Pulse 64 07/28/21 11:22 Equity Structurer New 4d Resp 18 07/28/21 11:22 BP 115/70 07/28/21 11:22 Pulse Ox 97 07/28/21 11:22 Oxygen Flow Rate 3 07/22/21 04:00 BMI result Body Mass Index 39.2 Const: Other: Gen:? Awake alert in no acute distress Neck: supple, no increased JVD Lungs: diminished at bases bilaterally Heart: irregularly irregular, no murmurs Abd: soft, non-tender, non-distended, obese :? significant scrotal swelling , dry blood around Camilo catheter, Camilo with brown urine Ext: venous stasis hyperpigmentation to shins, significant pitting edema both thighs and back Skin: warm/well-perfused Neuro: alert and oriented x3, no focal findings Psych: appropriate affect Objective Data Active Medications Acetaminophen (Acetaminophen 325 Mg Tablet) 650 mg PO Q6H PRN PRN Reason: Pain, Mild (Pain Scale 1-3) Last Admin: 07/26/21 16:12 Dose: 650 mg Documented by: KEITH Al Hydroxide/Mg Hydroxide (Magnesium Hydrox/Alum Hydrox 30 Ml Oral.Susp) 30 ml PO Q4H PRN PRN Reason: heartbirun Last Admin: 07/19/21 00:23 Dose: 30 ml Documented by: NAUMOC Amitriptyline HCl (Amitriptyline Hcl 50 Mg Tablet) 150 mg PO BEDTIME [facility] Last Admin: 07/27/21 19:54 Dose: 150 mg Documented by: ODRISM Amitriptyline HCl (Amitriptyline Hcl 50 Mg Tablet) 50 mg PO DAILY [facility] Last Admin: 07/28/21 08:33 Dose: 50 mg Documented by: BILL Ascorbic Acid (Ascorbic Acid 500 Mg Tablet) 500 mg PO DAILY [facility] Last Admin: 07/28/21 08:32 Dose: 500 mg Documented by: BILL Atorvastatin Calcium (Atorvastatin Calcium 80 Mg Tablet) 80 mg PO DAILY [facility] Last Admin: 07/28/21 08:33 Dose: 80 mg Documented by: BILL Bismuth Subsalicylate (Bismuth Subsalicylate Liquid 524 Mg/30 Ml Oral.Susp) 524 mg PO QID PRN PRN Reason: Indigestion Last Admin: 07/18/21 15:06 Dose: 524 mg Documented by: LORE Dextrose (Dextrose 50 % 25 Gm/50 Ml Syringe) 25 gm IVPUSH Q15M PRN; Protocol PRN Reason: per Hypoglycemia Standing Ord. Docusate Sodium (Docusate Sodium 100 Mg Capsule) 100 mg PO DAILY PRN PRN Reason: Constipation Glucose (Glucose Gel 15 Gm Gel..Gram.) 15 gm PO Q15M PRN; Protocol PRN Reason: per Hypoglycemia Standing Ord. Hydralazine HCl (Hydralazine Hcl 25 Mg Tablet) 25 mg PO TID [facility]; Protocol Last Admin: 07/28/21 12:51 Dose: 25 mg Documented by: BILL Bumetanide 25 mg/ IV (Miscellaneous Supplies) 100 mls @ 2 mls/hr IVCONT .Q24H [facility] Last Admin: 07/28/21 12:51 Dose: 0.5 mg/hr, 2 mls/hr Documented by: BILL Insulin Human Lispro (Insulin Lispro 100 Unit/Ml 3 Ml Vial) 0 unit SUBCUT QIDACHS [facility]; Protocol Last Admin: 07/28/21 12:51 Dose: 2 unit Documented by: BILL Isosorbide Mononitrate (Isosorbide Mononitrate 60 Mg Tab.Er.24h) 60 mg PO DAILY [facility]; Protocol Last Admin: 07/28/21 08:33 Dose: 60 mg Documented by: BILL Lactic Acid (Ammonium Lactate 12 % Cream 140 Gm Tube) 1 appl TOPICAL DAILY [facility]; Protocol Metolazone (Metolazone 5 Mg Tablet) 5 mg PO DAILY [facility] Last Admin: 07/28/21 08:33 Dose: 5 mg Documented by: BILL Metoprolol Succinate (Metoprolol Succinate Er 25 Mg Tab.Er.24h) 25 mg PO DAILY [facility]; Protocol Last Admin: 07/28/21 08:33 Dose: 25 mg Documented by: BILL Omeprazole (Omeprazole 40 Mg Capsule.Dr) 40 mg PO BID@0630,1630 [facility] Last Admin: 07/28/21 05:50 Dose: 40 mg Documented by: ODRISM Ondansetron HCl (Ondansetron Hcl 4 Mg/2 Ml Vial) 4 mg IVPUSH Q8H PRN PRN Reason: Nausea and Vomiting Last Admin: 07/19/21 06:16 Dose: 4 mg Documented by: NAUMOC Oxycodone HCl (Oxycodone Hcl Immed Release 5 Mg Tablet) 5 mg PO Q4H PRN PRN Reason: Pain, Severe (Pain Scale 7-10) Last Admin: 07/28/21 08:32 Dose: 5 mg Documented by: BILL Pharmacy Consult (Consult Rx Perform Med Rec) 1 each MISCELLANE ONCE PRN PRN Reason: Consult order Potassium Chloride (Potassium Chloride Er 20 Meq Tab.Er.Prt) 60 meq PO BIDPC [facility] Last Admin: 07/28/21 08:50 Dose: 20 meq Documented by: BILL Sodium Chloride (0.9 % Sodium Chloride Flush 3 Ml Syringe) 3 ml IVFLUSH QSHIFT [facility] Last Admin: 07/28/21 08:32 Dose: 3 ml Documented by: BILL Warfarin Sodium (Warfarin Sodium 2 Mg Tablet) 2 mg PO DAILY@1800 [facility] Last Admin: 07/27/21 17:53 Dose: 2 mg Documented by: BELL Labs CBC & Chem 7: 07/27/21 05:30 07/28/21 05:14 Labs: Laboratory Results - last 24 hr 07/27/21 07/27/21 07/28/21 15:30 19:20 05:14 PT 21.3 H INR 1.9 H Anion Gap Estim Creat Clear Calc Estimated GFR POC Glucose 198 H 140 H Random Glucose Calcium B-Natriuretic Peptide 07/28/21 07/28/21 07/28/21 05:14 05:14 07:17 PT INR Anion Gap 11 L Estim Creat Clear Calc 56.6 Estimated GFR 36 POC Glucose 118 H Random Glucose 106 Calcium 7.9 L B-Natriuretic Peptide 304 H 07/28/21 11:27 PT INR Anion Gap Estim Creat Clear Calc Estimated GFR POC Glucose 125 H Random Glucose Calcium B-Natriuretic Peptide Assessment and Plan (1) Gross hematuria: Status: Acute (2) Acute on chronic diastolic HF (heart failure): Status: Acute (3) CVA (cerebral vascular accident): Status: Acute (4) Atrial fibrillation: Status: Acute (5) Dizziness: Status: Acute (6) Coffee ground emesis: Status: Acute (7) Current use of anticoagulant therapy: Status: Acute Plan 61yo M with HTN, HFpEF with cardioMEMS device in place, HLD, CAD, DM2, DARLENE, s evere pHTN, AF on warfarin, CKD3-4, hx CVA, polycythemic vera, chronic hypoxic respiratory failure on 2L recent admission to [facility] for CHF exacerbation presenting with nausea/vomiting, dizziness # acute pontine CVA - no headache and dizziness this a.m., denies other neuro symptoms - conitnue statin, start clopidogrel to replace ASA once hematuria resolves [pt was taking ASA prior to admission but then had CVA], seen by Neurology no additional workup recommended # hypoK - persistent low potassium, will increase dose of potassium to 60 mg b.i.d., follow BMP while being diuresed # nausea/vomiting with 1 episode blood-streaked vomitus - ?Brinda-Reyes tear.? has not recurred since admission - s/p IV Protonix, now on oral PPI, repeat hematocrit is stable # hematuria/scrotal swelling Urine clear this morning , some bleeding around Camilo ,continue Camilo, Keep scrotum elevated, and aggressively diurese likely was due to traumatic Camilo placement; hold off on starting clopdigrel, with keep INR around 2-2.5 due to hematuria # permanent AF - continue metoprolol; d/c digoxin due to CKD - on low-dose warfarin; INR 1.9 today, cont. Coumadin 2 mg home dose 2.5 mg # acute/chronic HFpEF - admitted to [facility] 06/26/21-07/13/21, diuresed 15L, discharged at 295 lb on torsemide 100mg bid + metolazone 5 mg daily - TTE 07/07/20 LVEF 50%, no RWMA, mild , mod pulm HTN - s/p IV furosemide 80 mg b.i.d, subsequently transitioned to by mouth torsemide 100 mg b.i.d, but noted to have significant persistent edema, therefore started on metolazone 5 mg daily and IV Bumex drip 0.5 mg Continue gentle diuresis follow BMP and BNP # leukocytosis - resolved,likely was reactive from vomiting? no sign of infection. # acute/chronic hypoxic respiratory failure - wean O2 as tolerated, on 2L at home # DM2 with hypyerglycemia, A1c 8.6 - blood sugar stable, on correction-dose lispro.? on U-500 + Trulicity at home.? Continue diabetic diet and insulin sliding scale. # CAD - episode of chest pain resolved, troponins flat, continue statin, metoprolol, Imdur # acute on CKD4 - SCr back at baseline, BUN remains elevated and gradually trending down,no GI bleed noted # HTN - stable blood pressure on metoprolol, low-dose hydralazine and now on IV Bumex drip # morbid obesity - outpt bariatrics evaluation can be considered # DARLENE - continue CPAP at bedtime and during naps # VTE ppx - on warfarin with INR 1.9 # dispo - plan home with VNA Quality Stroke Does the patient have a stroke diagnosis?: No VTE Prior VTE?: No VTE Risk Level:: Medical - moderate - high VTE Device Contraindication: N/A - Device Ordered VTE Drug Contraindication: Treatment Not Indicated
[2021-07-28 15:47] LABS: Glucose, Whole Blood 147 mg/dL (60-115)
[2021-07-28] MEDS: Warfarin Sodium 2 MG TABLET PO (16:33)
[2021-07-28] MEDS: Amitriptyline HCl 50 MG TABLET 150 MG PO (20:23)
[2021-07-28 20:49] LABS: Glucose, Whole Blood 209 mg/dL (60-115)
[2021-07-29] VITALS (7 sets, daily range): BP systolic 98–120; BP diastolic 54–72; PULSE 53–71; RESP 16–18; TEMP 36.1–36.7; O2SAT 93–98
[2021-07-29 05:44] LABS: Prothrombin Time 22.8 SEC (9.9-13.0)
[2021-07-29] MEDS: Omeprazole 40 MG CAPSULE.DR PO ×2 (05:52→17:09)
[2021-07-29 06:02] LABS: Anion Gap 13 (12-20); Blood Urea Nitrogen 97 mg/dL (9-16); Calcium 8.1 mg/dL (8.4-10.2); Carbon Dioxide 34 mmol/L (22-29); Chloride 90 mmol/L (96-108); Creatinine Clr Calc Pharmacy 54.3; Estimated Glomerular Filt Rate 35; Glucose Random 126 mg/dL (60-115); Potassium 3.2 mmol/L (3.3-5.1); Sodium 134 mmol/L (135-145)
[2021-07-29 08:39] LABS: Glucose, Whole Blood 137 mg/dL (60-115)
[2021-07-29] MEDS: Insulin Lispro 100 UNIT/ML 3 ML VIAL SUBCUT ×4 (09:38→21:33)
[2021-07-29] MEDS: Ammonium Lactate 12 % Cream 140 GM TUBE 1 APPL TOPICAL (09:39)
[2021-07-29] MEDS: Ascorbic Acid 500 MG TABLET PO (09:40)
[2021-07-29] MEDS: Isosorbide Mononitrate 60 MG TAB.ER.24H PO (09:40)
[2021-07-29] MEDS: Atorvastatin Calcium 80 MG TABLET PO (09:40)
[2021-07-29] MEDS: oxyCODONE HCl Immed Release 5 MG TABLET PO (09:40)
[2021-07-29] MEDS: Metoprolol Succinate ER 25 MG TAB.ER.24H PO (09:40)
[2021-07-29] MEDS: Amitriptyline HCl 50 MG TABLET PO (09:41)
[2021-07-29] MEDS: metOLazone 5 MG TABLET PO (09:41)
[2021-07-29] MEDS: Potassium Chloride ER 20 MEQ TAB.ER.PRT 60 MEQ PO ×2 (09:41→17:09)
--- NOTE | 2021-07-29 11:04 | P.PNCA_ITS ---
Subjective Subjective Date of Service: 07/29/21 Principal diagnosis: Dizziness, CVA, afib, chronic diastolic HF Interval history: Patient having some neck pain and cough. No clear cardiac issues. Diuresing well as diuresed about-2.3 L. still short of breath but denies any chest pain. Review of Systems Constitutional: Reports weakness Cardiovascular: Denies chest pain, Reports leg edema, Denies palpitations and Reports dyspnea Respiratory: Reports cough and Reports dyspnea Gastrointestinal: Reports no additional gastrointestinal complaints Musculoskeletal: Reports no additional musculoskeletal complaints Skin/Breast: Reports system reviewed and no additional complaints, except as docu Reports system reviewed and no additional complaints, except as documented and Reports weakness Psychiatric: Reports no additional psychiatric complaints Endocrine: Reports no additional endocrine complaints and Denies palpitations Hematologic/Lymphatic: Reports no additional hematologic/lymphatic complaints Physical Exam Vital Signs: Last Vital Signs Temp 97 F 07/29/21 07:31 Pulse 62 07/29/21 07:31 Resp 18 07/29/21 07:31 BP 115/66 07/29/21 07:31 Pulse Ox 97 07/29/21 07:31 Verdana 4 Oxygen Flow Verdana 4 3 Verdana 4 07/22/21 Rate Verdana 4 04:00 Verdana 4 Verdana 4 BMI result Verdana 4 Body Mass Index Verdana 4 39.2 Verdana 4 Verdana 4 Const General: cooperative, comfortable, no acute distress, alert and awake Nutritional Appearance: obese Orientation/consciousness: patient oriented x3 Neck Neck: Yes trachea midline, Yes supple and Yes JVD Resp Effort & Inspection: normal respiratory effort Auscultation: diminished lung sounds Cardio Jugular venous distension: JVD Rhythm: abnormal rhythm irregularly irregular Heart sounds: S1 normal heart sound present, S2 normal heart sound present, no click, no gallops and no murmurs GI Inspection: Yes obesity Auscultation: normal bowel sounds Neuro General: patient oriented x3 Extrem General: No clubbing, No cyanosis and Yes edema Objective Labs and Meds Result diagrams: 07/27/21 05:30 07/29/21 05:09 Lab results: Laboratory Results - last 24 hr 07/28/21 07/28/21 07/28/21 11:27 15:28 19:50 PT INR Sodium Potassium Chloride Carbon Dioxide Anion Gap BUN Creatinine Estim Creat Clear Calc Estimated GFR POC Glucose 125 H 147 H 209 H Random Glucose Calcium 07/29/21 07/29/21 07/29/21 05:09 05:09 07:27 PT 22.8 H INR 2.0 H Sodium 134 L Potassium 3.2 L Chloride 90 L Carbon Dioxide 34 H Anion Gap 13 BUN 97 H Creatinine 1.99 H Estim Creat Clear Calc 54.3 Estimated GFR 35 POC Glucose 137 H Random Glucose 126 H Calcium 8.1 L Progress Note: A&P Assessment and plan (1) Acute on chronic diastolic HF (heart failure): Status: Acute Assessment and Plan: Patient with advanced heart failure poorly responsive to oral diuretic regimen and remained significantly fluid overloaded. Will monitor his CardioMEMS readings. However he has responded well to current diuretic regimen with stable renal function. Continue diuresis with Bumex drip along with metolazone. Strict intake and output chart needs to be pursued. Continue to monitor his renal function electrolytes and replace as needed. Overall prognosis given that he has advanced diastolic heart failure remains poor. (2) Atrial fibrillation: Status: Acute Assessment and Plan: Atrial fibrillation rate controlled. Continue current rate control. Continue full oral anticoagulation, currently on warfarin therapy. Maintain target INR between 2 and 3. Will continue to follow with you Fall Risk Details Current Medications: Current Medications Acetaminophen (Acetaminophen 325 Mg Tablet) 650 mg PO Q6H PRN PRN Reason: Pain, Mild (Pain Scale 1-3) Last Admin: 07/26/21 16:12 Dose: 650 mg Documented by: Al Hydroxide/Mg Hydroxide (Magnesium Hydrox/Alum Hydrox 30 Ml Oral.Susp) 30 ml PO Q4H PRN PRN Reason: heartbirun Last Admin: 07/19/21 00:23 Dose: 30 ml Documented by: Amitriptyline HCl (Amitriptyline Hcl 50 Mg Tablet) 150 mg PO BEDTIME [facility] Last Admin: 07/28/21 20:23 Dose: 150 mg Documented by: Amitriptyline HCl (Amitriptyline Hcl 50 Mg Tablet) 50 mg PO DAILY [facility] Last Admin: 07/29/21 09:41 Dose: 50 mg Documented by: Ascorbic Acid (Ascorbic Acid 500 Mg Tablet) 500 mg PO DAILY [facility] Last Admin: 07/29/21 09:40 Dose: 500 mg Documented by: Atorvastatin Calcium (Atorvastatin Calcium 80 Mg Tablet) 80 mg PO DAILY [facility] Last Admin: 07/29/21 09:40 Dose: 80 mg Documented by: Bismuth Subsalicylate (Bismuth Subsalicylate Liquid 524 Mg/30 Ml Oral.Susp) 524 mg PO QID PRN PRN Reason: Indigestion Last Admin: 07/18/21 15:06 Dose: 524 mg Documented by: Dextrose (Dextrose 50 % 25 Gm/50 Ml Syringe) 25 gm IVPUSH Q15M PRN; Protocol PRN Reason: per Hypoglycemia Standing Ord. Docusate Sodium (Docusate Sodium 100 Mg Capsule) 100 mg PO DAILY PRN PRN Reason: Constipation Glucose (Glucose Gel 15 Gm Gel..Gram.) 15 gm PO Q15M PRN; Protocol PRN Reason: per Hypoglycemia Standing Ord. Hydralazine HCl (Hydralazine Hcl 25 Mg Tablet) 25 mg PO TID [facility]; Protocol Last Admin: 07/29/21 09:41 Dose: Not Given Documented by: Bumetanide 25 mg/ IV (Miscellaneous Supplies) 100 mls @ 2 mls/hr IVCONT .Q24H [facility] Last Admin: 07/28/21 12:51 Dose: 0.5 mg/hr, 2 mls/hr Documented by: Insulin Human Lispro (Insulin Lispro 100 Unit/Ml 3 Ml Vial) 0 unit SUBCUT QIDACHS [facility]; Protocol Last Admin: 07/29/21 09:38 Dose: 2 unit Documented by: Isosorbide Mononitrate (Isosorbide Mononitrate 60 Mg Tab.Er.24h) 60 mg PO DAILY [facility]; Protocol Last Admin: 07/29/21 09:40 Dose: 60 mg Documented by: Lactic Acid (Ammonium Lactate 12 % Cream 140 Gm Tube) 1 appl TOPICAL DAILY [facility]; Protocol Last Admin: 07/29/21 09:39 Dose: 1 appl Documented by: Metolazone (Metolazone 5 Mg Tablet) 5 mg PO DAILY [facility] Last Admin: 07/29/21 09:41 Dose: 5 mg Documented by: Metoprolol Succinate (Metoprolol Succinate Er 25 Mg Tab.Er.24h) 25 mg PO DAILY [facility]; Protocol Last Admin: 07/29/21 09:40 Dose: 25 mg Documented by: Omeprazole (Omeprazole 40 Mg Capsule.) 40 mg PO BID@0630,1630 [facility] Last Admin: 07/29/21 05:52 Dose: 40 mg Documented by: Ondansetron HCl (Ondansetron Hcl 4 Mg/2 Ml Vial) 4 mg IVPUSH Q8H PRN PRN Reason: Nausea and Vomiting Last Admin: 07/19/21 06:16 Dose: 4 mg Documented by: Oxycodone HCl (Oxycodone Hcl Immed Release 5 Mg Tablet) 5 mg PO Q4H PRN PRN Reason: Pain, Severe (Pain Scale 7-10) Last Admin: 07/29/21 09:40 Dose: 5 mg Documented by: Pharmacy Consult (Consult Rx Perform Med Rec) 1 each MISCELLANE ONCE PRN PRN Reason: Consult order Potassium Chloride (Potassium Chloride Er 20 Meq Tab.Er.Prt) 60 meq PO BIDPC [facility] Last Admin: 07/29/21 09:41 Dose: 60 meq Documented by: Potassium Chloride (Potassium Chloride Er 20 Meq Tab.Er.Prt) 40 meq PO DAILY@1230 [facility] Sodium Chloride (0.9 % Sodium Chloride Flush 3 Ml Syringe) 3 ml IVFLUSH QSHIFT [facility] Last Admin: 07/29/21 09:39 Dose: Not Given Documented by: Warfarin Sodium (Warfarin Sodium 2 Mg Tablet) 2 mg PO DAILY@1800 [facility] Last Admin: 07/28/21 16:33 Dose: 2 mg Documented by: Time Spent With Patient Time: Total time spent is greater than 50% in coordination of care (as documented) at patient's floor/unit and/or counseling patient: Time with patient: 15 - 24 minutes Progress Note: Quality Stroke Does the patient have a stroke diagnosis?: No Procedures Date of Service Date of Service: 07/29/21
[2021-07-29 11:29] LABS: Glucose, Whole Blood 155 mg/dL (60-115)
[2021-07-29] MEDS: Potassium Chloride ER 20 MEQ TAB.ER.PRT 40 MEQ PO (11:51)
[2021-07-29] MEDS: Bumetanide 25 MG in Container,Empty 0 ML IVCONT (11:52)
--- NOTE | 2021-07-29 13:49 | P.PNIM_ITS ---
Subjective Subjective Date of Service: 07/29/21 Interval History: complaining of persistent scrotal swelling and pain, -2.3 L today being cooperative, and is out of bed to chair daily, denies chest pain, no palpitations no shortness of breath no other acute issues overnight. Review of Systems Review of Systems: Yes all other systems are reviewed and are negative Physical Exam Verdana 4l Vital Signs: Verdana 4d Verdana 4d Vital Signs: Verdana 4d Verdana 4Bd Last Vital Signs Verdana 4d Rn Unit Manager New 4d Rn Unit Manager New 4d Temp 97 F 07/29/21 11:47 Rn Unit Manager New 4d Pulse 63 07/29/21 11:47 Rn Unit Manager New 4d Resp 18 07/29/21 11:47 BP 120/72 07/29/21 11:47 Pulse Ox 94 07/29/21 11:47 Oxygen Flow Rate 3 07/22/21 04:00 BMI result Body Mass Index 39.2 Const: Other: Gen:? Awake, alert in no acute distress Neck: supple, no increased JVD Lungs: Coarse breath sound, no wheeze, no crackles Heart: irregularly irregular, no murmurs Abd: soft, non-tender, non-distended, obese :? significant scrotal swelling , dry blood around Camilo catheter, Camilo with brown urine Ext: venous stasis hyperpigmentation to shins, significant dependent edema both thighs and back Skin: warm/well-perfused Neuro: alert and oriented x3, no focal findings Psych: appropriate affect Objective Data Active Medications Acetaminophen (Acetaminophen 325 Mg Tablet) 650 mg PO Q6H PRN PRN Reason: Pain, Mild (Pain Scale 1-3) Last Admin: 07/26/21 16:12 Dose: 650 mg Documented by: KEITH Al Hydroxide/Mg Hydroxide (Magnesium Hydrox/Alum Hydrox 30 Ml Oral.Susp) 30 ml PO Q4H PRN PRN Reason: heartbirun Last Admin: 07/19/21 00:23 Dose: 30 ml Documented by: NAUMOC Amitriptyline HCl (Amitriptyline Hcl 50 Mg Tablet) 150 mg PO BEDTIME [facility] Last Admin: 07/28/21 20:23 Dose: 150 mg Documented by: ODRISM Amitriptyline HCl (Amitriptyline Hcl 50 Mg Tablet) 50 mg PO DAILY [facility] Last Admin: 07/29/21 09:41 Dose: 50 mg Documented by: BILL Ascorbic Acid (Ascorbic Acid 500 Mg Tablet) 500 mg PO DAILY [facility] Last Admin: 07/29/21 09:40 Dose: 500 mg Documented by: BILL Atorvastatin Calcium (Atorvastatin Calcium 80 Mg Tablet) 80 mg PO DAILY [facility] Last Admin: 07/29/21 09:40 Dose: 80 mg Documented by: BILL Bismuth Subsalicylate (Bismuth Subsalicylate Liquid 524 Mg/30 Ml Oral.Susp) 524 mg PO QID PRN PRN Reason: Indigestion Last Admin: 07/18/21 15:06 Dose: 524 mg Documented by: LORE Dextrose (Dextrose 50 % 25 Gm/50 Ml Syringe) 25 gm IVPUSH Q15M PRN; Protocol PRN Reason: per Hypoglycemia Standing Ord. Docusate Sodium (Docusate Sodium 100 Mg Capsule) 100 mg PO DAILY PRN PRN Reason: Constipation Glucose (Glucose Gel 15 Gm Gel..Gram.) 15 gm PO Q15M PRN; Protocol PRN Reason: per Hypoglycemia Standing Ord. Hydralazine HCl (Hydralazine Hcl 25 Mg Tablet) 25 mg PO TID [facility]; Protocol Last Admin: 07/29/21 09:41 Dose: Not Given Documented by: BILL Non-Admin Reason: Decreased Blood Pressure Bumetanide 25 mg/ IV (Miscellaneous Supplies) 100 mls @ 2 mls/hr IVCONT .Q24H [facility] Last Admin: 07/29/21 11:52 Dose: 0.5 mg/hr, 2 mls/hr Documented by: BILL Insulin Human Lispro (Insulin Lispro 100 Unit/Ml 3 Ml Vial) 0 unit SUBCUT QIDACHS [facility]; Protocol Last Admin: 07/29/21 11:52 Dose: 4 unit Documented by: BILL Isosorbide Mononitrate (Isosorbide Mononitrate 60 Mg Tab.Er.24h) 60 mg PO DAILY [facility]; Protocol Last Admin: 07/29/21 09:40 Dose: 60 mg Documented by: BILL Lactic Acid (Ammonium Lactate 12 % Cream 140 Gm Tube) 1 appl TOPICAL DAILY [facility]; Protocol Last Admin: 07/29/21 09:39 Dose: 1 appl Documented by: BILL Metolazone (Metolazone 5 Mg Tablet) 5 mg PO DAILY [facility] Last Admin: 07/29/21 09:41 Dose: 5 mg Documented by: BILL Metoprolol Succinate (Metoprolol Succinate Er 25 Mg Tab.Er.24h) 25 mg PO DAILY [facility]; Protocol Last Admin: 07/29/21 09:40 Dose: 25 mg Documented by: BILL Omeprazole (Omeprazole 40 Mg Capsule.Dr) 40 mg PO BID@0630,1630 [facility] Last Admin: 07/29/21 05:52 Dose: 40 mg Documented by: ODRISMichelle Ondansetron HCl (Ondansetron Hcl 4 Mg/2 Ml Vial) 4 mg IVPUSH Q8H PRN PRN Reason: Nausea and Vomiting Last Admin: 07/19/21 06:16 Dose: 4 mg Documented by: SUSIEOC Oxycodone HCl (Oxycodone Hcl Immed Release 5 Mg Tablet) 5 mg PO Q4H PRN PRN Reason: Pain, Severe (Pain Scale 7-10) Last Admin: 07/29/21 09:40 Dose: 5 mg Documented by: BILL Pharmacy Consult (Consult Rx Perform Med Rec) 1 each MISCELLANE ONCE PRN PRN Reason: Consult order Potassium Chloride (Potassium Chloride Er 20 Meq Tab.Er.Prt) 60 meq PO BIDPC [facility] Last Admin: 07/29/21 09:41 Dose: 60 meq Documented by: BILL Potassium Chloride (Potassium Chloride Er 20 Meq Tab.Er.Prt) 40 meq PO DAILY@1230 [facility] Last Admin: 07/29/21 11:51 Dose: 40 meq Documented by: BILL Sodium Chloride (0.9 % Sodium Chloride Flush 3 Ml Syringe) 3 ml IVFLUSH QSHIFT [facility] Last Admin: 07/29/21 09:39 Dose: Not Given Documented by: BILL Non-Admin Reason: IV Running Warfarin Sodium (Warfarin Sodium 2 Mg Tablet) 2 mg PO DAILY@1800 [facility] Last Admin: 07/28/21 16:33 Dose: 2 mg Documented by: BILL Labs CBC & Chem 7: 07/27/21 05:30 07/29/21 05:09 Labs: Laboratory Results - last 24 hr 07/28/21 07/28/21 07/29/21 15:28 19:50 05:09 PT 22.8 H INR 2.0 H Anion Gap Estim Creat Clear Calc Estimated GFR POC Glucose 147 H 209 H Random Glucose Calcium 07/29/21 07/29/21 07/29/21 05:09 07:27 11:24 PT INR Anion Gap 13 Estim Creat Clear Calc 54.3 Estimated GFR 35 POC Glucose 137 H 155 H Random Glucose 126 H Calcium 8.1 L Assessment and Plan (1) Gross hematuria: Status: Acute (2) Acute on chronic diastolic HF (heart failure): Status: Acute (3) CVA (cerebral vascular accident): Status: Acute (4) Atrial fibrillation: Status: Acute (5) Dizziness: Status: Acute (6) Coffee ground emesis: Status: Acute (7) Current use of anticoagulant therapy: Status: Acute Plan 61yo M with HTN, HFpEF with cardioMEMS device in place, HLD, CAD, DM2, DARLENE, severe pHTN, AF on warfarin, CKD3-4, hx CVA, polycythemic vera, chronic hypoxic respiratory failure on 2L recent admission to [facility] for CHF exacerbation presenting with nausea/vomiting, dizziness # acute pontine CVA - headache and dizziness resolved, denies other neuro symptoms - conitnue statin, will start clopidogrel to replace ASA once Camilo removed since persistent bleeding around Camilo, on Coumadin for atrial fib [pt was taking ASA prior to admission but then had CVA], seen by Neurology no additional workup recommended # hypoK - persistent low potassium, continue potassium 60 mg b.i.d., will add 40 mEq at noon, follow BMP while being diuresed # nausea/vomiting with 1 episode blood-streaked vomitus - ?Brinda-Reyes tear.? has not recurred since admission - s/p IV Protonix, now on oral PPI, repeat hematocrit is stable # hematuria/scrotal swelling Urine clear , some bleeding around Camilo ,continue Camilo, Keep scrotum elevated, and aggressively diurese hematuria was likely due to traumatic Camilo placement while on anticoagulation; hold off on starting clopdigrel, with keep INR around 2-2.5 # permanent AF - continue metoprolol; d/c digoxin due to CKD - INR 2 today, cont. Coumadin 2 mg home dose 2.5 mg keep INR 2-2.5 # acute/chronic HFpEF - admitted to [facility] 06/26/21-07/13/21, diuresed 15L, discharged at 295 lb on torsemide 100mg bid + metolazone 5 mg daily - TTE 07/07/20 LVEF 50%, no RWMA, mild , mod pulm HTN - s/p IV furosemide 80 mg b.i.d, subsequently transitioned to by mouth torsemide 100 mg b.i.d, but noted to have significant persistent edema, therefore started on metolazone 5 mg daily and IV Bumex drip 0.5 mg on 07/27 Continue gentle diuresis follow BMP and BNP closely # leukocytosis - resolved,likely was reactive from vomiting? no sign of infection. # acute/chronic hypoxic respiratory failure - resolved,on 2L at home # DM2 with hypyerglycemia, A1c 8.6 - blood sugar stable, on correction-dose lispro.? on U-500 + Trulicity at home.? Continue diabetic diet and insulin sliding scale. # CAD - episode of chest pain resolved, troponins flat, continue statin, metoprolol, Imdur # acute on CKD4 - SCr back at baseline, BUN remains elevated and gradually trending down,no GI bleed noted # HTN - stable blood pressure on metoprolol, low-dose hydralazine, Imdur and now on IV Bumex drip, (amlodipine discontinued) # morbid obesity - outpt bariatrics evaluation can be considered # DARLENE - continue CPAP at bedtime and during naps # VTE ppx - on warfarin with INR 2 # dispo - plan home with [facility] Quality Stroke Does the patient have a stroke diagnosis?: No VTE Prior VTE?: No VTE Risk Level:: Medical - moderate - high VTE Device Contraindication: N/A - Device Ordered VTE Drug Contraindication: Treatment Not Indicated
--- NOTE | 2021-07-29 15:36 | MHC.CLN ---
NUTRITION DIET=DIABETIC 2000 KCAL, 2 GRAM SODIUM. SUPPLEMENT GLUCERNA TID PROVIDES 710 KCAL, 30 G PROTEIN. INTAKE AT MEALS VARIABLE, WITH LAST 4 MEALS 75-100%. SUPPLEMENT APPROPRIATE TO PROMOTE WOUND HEALING.
[2021-07-29 16:36] LABS: Glucose, Whole Blood 145 mg/dL (60-115)
--- NOTE | 2021-07-29 16:40 | MHC.CM.PN ---
EMR REVIEWED, PT REMAINS ON BUMETANIDE DRIP AND 2-3L O2, NO PLAN FOR D/C AT THIS TIME. CM WILLL CONT TO FOLLOW D/C NEEDS.
[2021-07-29] MEDS: Warfarin Sodium 2 MG TABLET PO (17:10)
[2021-07-29 20:37] LABS: Glucose, Whole Blood 148 mg/dL (60-115)
[2021-07-29] MEDS: Amitriptyline HCl 50 MG TABLET 150 MG PO (21:32)
[2021-07-29] MEDS: hydrALAZINE HCl 25 MG TABLET PO (21:32)
[2021-07-29] MEDS: 0.9 % Sodium Chloride Flush 3 ML SYRINGE IVFLUSH (21:33)
[2021-07-30] VITALS (7 sets, daily range): BP systolic 109–137; BP diastolic 65–77; PULSE 53–74; RESP 14–20; TEMP 35.9–36.6; O2SAT 91–98
[2021-07-30] MEDS: Omeprazole 40 MG CAPSULE.DR PO ×2 (05:37→17:25)
[2021-07-30 06:25] LABS: Prothrombin Time 22.7 SEC (9.9-13.0)
[2021-07-30 06:53] LABS: Anion Gap 14 (12-20); Blood Urea Nitrogen 96 mg/dL (9-16); Calcium 8.2 mg/dL (8.4-10.2); Carbon Dioxide 35 mmol/L (22-29); Chloride 91 mmol/L (96-108); Estimated Glomerular Filt Rate 34; Glucose Random 157 mg/dL (60-115); Potassium 3.6 mmol/L (3.3-5.1); Sodium 136 mmol/L (135-145)
[2021-07-30 07:48] LABS: Glucose, Whole Blood 169 mg/dL (60-115)
[2021-07-30] MEDS: Insulin Lispro 100 UNIT/ML 3 ML VIAL SUBCUT ×4 (08:05→20:47)
[2021-07-30] MEDS: Potassium Chloride ER 20 MEQ TAB.ER.PRT 60 MEQ PO ×2 (08:06→17:25)
[2021-07-30] MEDS: 0.9 % Sodium Chloride Flush 3 ML SYRINGE IVFLUSH ×2 (08:06→20:48)
[2021-07-30] MEDS: Amitriptyline HCl 50 MG TABLET PO (08:06)
[2021-07-30] MEDS: Isosorbide Mononitrate 60 MG TAB.ER.24H PO (08:06)
[2021-07-30] MEDS: Atorvastatin Calcium 80 MG TABLET PO (08:07)
[2021-07-30] MEDS: hydrALAZINE HCl 25 MG TABLET PO ×3 (08:07→20:48)
[2021-07-30] MEDS: Ascorbic Acid 500 MG TABLET PO (08:07)
[2021-07-30] MEDS: metOLazone 5 MG TABLET PO (08:08)
[2021-07-30] MEDS: Metoprolol Succinate ER 25 MG TAB.ER.24H PO (08:08)
[2021-07-30] MEDS: oxyCODONE HCl Immed Release 5 MG TABLET PO ×2 (08:08→20:48)
[2021-07-30] MEDS: Ammonium Lactate 12 % Cream 140 GM TUBE 1 APPL TOPICAL (08:15)
[2021-07-30 12:03] LABS: Glucose, Whole Blood 158 mg/dL (60-115)
[2021-07-30] MEDS: Potassium Chloride ER 20 MEQ TAB.ER.PRT 40 MEQ PO (12:12)
[2021-07-30] MEDS: Bumetanide 25 MG in Container,Empty 0 ML IVCONT (12:40)
--- NOTE | 2021-07-30 12:42 | P.PNIM_ITS ---
Subjective Subjective Date of Service: 07/30/21 Interval History: the patient was seen and evaluated this morning Laying in bed, feels comfortable but still have scrotal swelling Still having hematuria Denies any fever, chills or shortness of breath No reported other overnight events. Systemic review: No fever, chills but has generalized weakness No chest pain, palpitation No shortness of breath or coughing No abdominal pain, nausea or vomiting Hematuria No any rash or wounds Physical Exam Verdana 4l Vital Signs: Verdana 4d Verdana 4d Vital Signs: Verdana 4d Verdana 4Bd Last Vital Signs Verdana 4d Tank Crewmember New 4d Tank Crewmember New 4d Temp 97.8 F 07/30/21 11:38 Tank Crewmember New 4d Pulse 67 07/30/21 11:38 Tank Crewmember New 4d Resp 20 07/30/21 11:38 BP 137/74 07/30/21 11:38 Pulse Ox 97 07/30/21 11:38 Oxygen Flow Rate 3 07/22/21 04:00 BMI result Body Mass Index 39.2 Const: Other: Gen:? Awake, alert in no acute distress Neck: supple, no increased JVD Lungs: Coarse breath sound, no wheeze, no crackles Heart: irregularly irregular, no murmurs Abd: soft, non-tender, non-distended, obese :? significant scrotal swelling , dry blood around Camilo catheter, Camilo with bloody urine Ext: venous stasis hyperpigmentation to shins, significant dependent edema both thighs and back Skin: warm/well-perfused Neuro: alert and oriented x3, no focal findings Psych: appropriate affect Objective Data Active Medications Acetaminophen (Acetaminophen 325 Mg Tablet) 650 mg PO Q6H PRN PRN Reason: Pain, Mild (Pain Scale 1-3) Last Admin: 07/26/21 16:12 Dose: 650 mg Documented by: KEITH Al Hydroxide/Mg Hydroxide (Magnesium Hydrox/Alum Hydrox 30 Ml Oral.Susp) 30 ml PO Q4H PRN PRN Reason: heartbirun Last Admin: 07/19/21 00:23 Dose: 30 ml Documented by: GIL Amitriptyline HCl (Amitriptyline Hcl 50 Mg Tablet) 150 mg PO BEDTIME [facility] Last Admin: 07/29/21 21:32 Dose: 150 mg Documented by: WHITNEY Amitriptyline HCl (Amitriptyline Hcl 50 Mg Tablet) 50 mg PO DAILY [facility] Last Admin: 07/30/21 08:06 Dose: 50 mg Documented by: LAZARUS Ascorbic Acid (Ascorbic Acid 500 Mg Tablet) 500 mg PO DAILY [facility] Last Admin: 07/30/21 08:07 Dose: 500 mg Documented by: LAZARUS Atorvastatin Calcium (Atorvastatin Calcium 80 Mg Tablet) 80 mg PO DAILY [facility] Last Admin: 07/30/21 08:07 Dose: 80 mg Documented by: LAZARUS Bismuth Subsalicylate (Bismuth Subsalicylate Liquid 524 Mg/30 Ml Oral.Susp) 524 mg PO QID PRN PRN Reason: Indigestion Last Admin: 07/18/21 15:06 Dose: 524 mg Documented by: LORE Dextrose (Dextrose 50 % 25 Gm/50 Ml Syringe) 25 gm IVPUSH Q15M PRN; Protocol PRN Reason: per Hypoglycemia Standing Ord. Docusate Sodium (Docusate Sodium 100 Mg Capsule) 100 mg PO DAILY PRN PRN Reason: Constipation Glucose (Glucose Gel 15 Gm Gel..Gram.) 15 gm PO Q15M PRN; Protocol PRN Reason: per Hypoglycemia Standing Ord. Hydralazine HCl (Hydralazine Hcl 25 Mg Tablet) 25 mg PO TID [facility]; Protocol Last Admin: 07/30/21 08:07 Dose: 25 mg Documented by: LAZARUS Bumetanide 25 mg/ IV (Miscellaneous Supplies) 100 mls @ 2 mls/hr IVCONT .Q24H [facility] Last Admin: 07/30/21 12:40 Dose: 0.5 mg/hr, 2 mls/hr Documented by: GALEN Insulin Human Lispro (Insulin Lispro 100 Unit/Ml 3 Ml Vial) 0 unit SUBCUT QIDACHS [facility]; Protocol Last Admin: 07/30/21 12:12 Dose: 4 unit Documented by: GALEN Isosorbide Mononitrate (Isosorbide Mononitrate 60 Mg Tab.Er.24h) 60 mg PO DAILY [facility]; Protocol Last Admin: 07/30/21 08:06 Dose: 60 mg Documented by: LAZARUS Lactic Acid (Ammonium Lactate 12 % Cream 140 Gm Tube) 1 appl TOPICAL DAILY [facility]; Protocol Last Admin: 07/30/21 08:15 Dose: 1 appl Documented by: LAZARUS Metolazone (Metolazone 5 Mg Tablet) 5 mg PO DAILY [facility] Last Admin: 07/30/21 08:08 Dose: 5 mg Documented by: LAZARUS Metoprolol Succinate (Metoprolol Succinate Er 25 Mg Tab.Er.24h) 25 mg PO DAILY [facility]; Protocol Last Admin: 07/30/21 08:08 Dose: 25 mg Documented by: LAZARUS Omeprazole (Omeprazole 40 Mg Capsule.Dr) 40 mg PO BID@0630,1630 [facility] Last Admin: 07/30/21 05:37 Dose: 40 mg Documented by: WHITNEY Ondansetron HCl (Ondansetron Hcl 4 Mg/2 Ml Vial) 4 mg IVPUSH Q8H PRN PRN Reason: Nausea and Vomiting Last Admin: 07/19/21 06:16 Dose: 4 mg Documented by: GIL Oxycodone HCl (Oxycodone Hcl Immed Release 5 Mg Tablet) 5 mg PO Q4H PRN PRN Reason: Pain, Severe (Pain Scale 7-10) Last Admin: 07/30/21 08:08 Dose: 5 mg Documented by: LAZARUS Pharmacy Consult (Consult Rx Perform Med Rec) 1 each MISCELLANE ONCE PRN PRN Reason: Consult order Potassium Chloride (Potassium Chloride Er 20 Meq Tab.Er.Prt) 60 meq PO BIDPC [facility] Last Admin: 07/30/21 08:06 Dose: 60 meq Documented by: LAZARUS Potassium Chloride (Potassium Chloride Er 20 Meq Tab.Er.Prt) 40 meq PO DAILY@1230 [facility] Last Admin: 07/30/21 12:12 Dose: 40 meq Documented by: GALEN Sodium Chloride (0.9 % Sodium Chloride Flush 3 Ml Syringe) 3 ml IVFLUSH QSHIFT [facility] Last Admin: 07/30/21 08:06 Dose: 3 ml Documented by: LAZARUS Warfarin Sodium (Warfarin Sodium 2 Mg Tablet) 2 mg PO DAILY@1800 [facility] Last Admin: 07/29/21 17:10 Dose: 2 mg Documented by: LYSZ Labs CBC & Chem 7: 07/27/21 05:30 07/30/21 05:42 Labs: Laboratory Results - last 24 hr 07/29/21 07/29/21 07/30/21 16:19 20:13 05:42 PT 22.7 H INR 2.0 H Anion Gap Estim Creat Clear Calc Estimated GFR POC Glucose 145 H 148 H Random Glucose Calcium 07/30/21 07/30/21 07/30/21 05:42 07:13 11:42 PT INR Anion Gap 14 Estim Creat Clear Calc 53.0 Estimated GFR 34 POC Glucose 169 H 158 H Random Glucose 157 H Calcium 8.2 L Assessment and Plan (1) Gross hematuria: Status: Acute (2) Acute on chronic diastolic HF (heart failure): Status: Acute (3) CVA (cerebral vascular accident): Status: Acute Plan 61yo M with HTN, HFpEF with cardioMEMS device in place, HLD, CAD, DM2, DARLENE, severe pHTN, AF on warfarin, CKD3-4, hx CVA, polycythemic vera, chronic hypoxic respiratory failure on 2L recent admission to [facility] for CHF exacerbation presenting with nausea/vomiting, dizziness # acute/chronic HFpEF - admitted to [facility] 06/26/21-07/13/21, diuresed 15L, disch arged at 295 lb on torsemide 100mg bid + metolazone 5 mg daily - TTE 07/07/20 LVEF 50%, no RWMA, mild , mod pulm HTN - s/p IV furosemide 80 mg b.i.d, subsequently transitioned to by mouth torsemide 100 mg b.i.d, but noted to have significant persistent edema, therefore started on metolazone 5 mg daily and IV Bumex drip 0.5 mg on 07/27 Continue gentle diuresis follow BMP and BNP closely # hematuria/scrotal swelling Urine bloody tinged , some bleeding around Camilo ,continue Camilo, Keep scrotum elevated, and aggressively diurese hematuria was likely due to traumatic Camilo placement while on anticoagulation; hold off on starting clopdigrel, with keep INR around 2-2.5 # acute pontine CVA Improved conitnue statin start clopidogrel to replace ASA once Camilo removed since persistent bleeding around Camilo seen by Neurology no additional workup recommended # hypoK persistent low potassium, continue potassium 60 mg b.i.d., will add 40 mEq at noon, follow BMP while being diuresed # nausea/vomiting with 1 episode blood-streaked vomitus Brinda-Reyes tear.? has not recurred since admission s/p IV Protonix, now on oral PPI, repeat hematocrit is stable # permanent AF - continue metoprolol; d/c digoxin due to CKD - INR 2 today, cont. Coumadin 2 mg home dose 2.5 mg keep INR 2-2.5 # chronic hypoxic respiratory failure on 2L at home # DM2 with hypyerglycemia, A1c 8.6 - blood sugar stable, on correction-dose lispro.? on U-500 + Trulicity at home.? Continue diabetic diet and insulin sliding scale. # CAD - episode of chest pain resolved, troponins flat, continue statin, metoprolol, Imdur # acute on CKD4 - SCr back at baseline, BUN remains elevated and gradually trending down,no GI bleed noted # HTN - stable blood pressure on metoprolol, low-dose hydralazine, Imdur and now on IV Bumex drip, (amlodipine discontinued) # morbid obesity - outpt bariatrics evaluation can be considered # DARLENE - continue CPAP at bedtime and during naps # VTE ppx - on warfarin with INR 2 # dispo - plan home with VNA Quality Stroke Does the patient have a stroke diagnosis?: No VTE Prior VTE?: No VTE Risk Level:: Medical - moderate - high VTE Device Contraindication: N/A - Device Ordered VTE Drug Contraindication: Treatment Not Indicated
[2021-07-30 16:54] LABS: Glucose, Whole Blood 142 mg/dL (60-115)
[2021-07-30] MEDS: Warfarin Sodium 2 MG TABLET PO (17:25)
--- NOTE | 2021-07-30 19:36 | PC.NURSE ---
Pt has a mcknight catheter, ignacio care completed. Scrotum very swollen, MD aware. Scrotum elevated. Swelling decreased a little throughout shift.
[2021-07-30 19:49] LABS: Glucose, Whole Blood 157 mg/dL (60-115)
[2021-07-30] MEDS: Amitriptyline HCl 50 MG TABLET 150 MG PO (20:48)
[2021-07-31] VITALS (10 sets, daily range): BP systolic 107–122; BP diastolic 52–68; PULSE 58–93; RESP 16–18; TEMP 36.4–37.3; O2SAT 92–97
[2021-07-31 05:45] LABS: INTERNATIONAL NORM RATIO 2.1 (0.9-1.1); Prothrombin Time 24.2 SEC (9.9-13.0)
[2021-07-31 05:51] LABS: B Type Natriuretic Peptide 335 pg/mL (<100)
[2021-07-31] MEDS: Omeprazole 40 MG CAPSULE.DR PO ×2 (05:51→17:15)
[2021-07-31 06:01] LABS: Anion Gap 15 (12-20); Blood Urea Nitrogen 93 mg/dL (9-16); Carbon Dioxide 34 mmol/L (22-29); Chloride 91 mmol/L (96-108); Creatinine Clr Calc Pharmacy 54.3; Estimated Glomerular Filt Rate 35; Glucose Random 122 mg/dL (60-115); Potassium 3.5 mmol/L (3.3-5.1); Sodium 136 mmol/L (135-145)
--- NOTE | 2021-07-31 06:17 | PC.NURSE ---
Pt noted at shift change with mcknight cath patent and draining, reddish yellow urine with 2 small blood clots noted in the urine bag, noted with crusted blood drain on the penile tip, pericare done, output monitored, this am ,urine output color is still same, no hypogastric distention nor discomfort noted.
[2021-07-31 07:27] LABS: Glucose, Whole Blood 141 mg/dL (60-115)
[2021-07-31] MEDS: Potassium Chloride ER 20 MEQ TAB.ER.PRT 60 MEQ PO ×2 (07:49→17:16)
[2021-07-31] MEDS: Atorvastatin Calcium 80 MG TABLET PO (07:50)
[2021-07-31] MEDS: hydrALAZINE HCl 25 MG TABLET PO ×3 (07:50→22:25)
[2021-07-31] MEDS: Metoprolol Succinate ER 25 MG TAB.ER.24H PO (07:50)
[2021-07-31] MEDS: metOLazone 5 MG TABLET PO (07:51)
[2021-07-31] MEDS: Isosorbide Mononitrate 60 MG TAB.ER.24H PO (07:51)
[2021-07-31] MEDS: Amitriptyline HCl 50 MG TABLET PO (07:51)
[2021-07-31] MEDS: Ascorbic Acid 500 MG TABLET PO (07:51)
[2021-07-31] MEDS: 0.9 % Sodium Chloride Flush 3 ML SYRINGE IVFLUSH ×2 (07:52→17:15)
[2021-07-31] MEDS: Insulin Lispro 100 UNIT/ML 3 ML VIAL SUBCUT ×4 (07:52→22:25)
[2021-07-31] MEDS: Ammonium Lactate 12 % Cream 140 GM TUBE 1 APPL TOPICAL (07:54)
--- NOTE | 2021-07-31 11:26 | PM.PNCARD ---
Subjective Subjective Date of Service: 07/31/21 Principal diagnosis: Dizziness, CVA, afib, chronic diastolic HF Interval history: Diuresing well. Leg edema as per him is improving. Shortness of breath is improved. No palpitations. Review of Systems Review of Systems Yes all other systems are reviewed and are negative Physical Exam Vital Signs: Last Vital Signs Temp 98.1 F 07/31/21 11:16 Pulse 65 07/31/21 11:16 Resp 18 07/31/21 11:16 BP 122/65 07/31/21 11:16 Pulse Ox 93 07/31/21 11:16 Oxygen Flow Rate 3 07/22/21 04:00 BMI result Body Mass Index 39.2 Const General: cooperative, comfortable, alert, awake and ill appearing Nutritional Appearance: obese Orientation/consciousness: patient oriented x3 Neck Neck: Yes trachea midline, Yes supple and Yes JVD Resp Effort & Inspection: decreased respiratory effort Auscultation: diminished lung sounds Cardio Jugular venous distension: JVD Rhythm: abnormal rhythm irregularly irregular Heart sounds: S1 normal heart sound present and S2 normal heart sound present Skin General skin exam: ecchymosis Neuro General: patient oriented x3 Extrem General: No clubbing, No cyanosis and Yes edema (Improving) Objective Labs and Meds Result diagrams: 07/27/21 05:30 07/31/21 04:39 Lab results: Laboratory Results - last 24 hr 07/30/21 07/30/21 07/30/21 11:42 15:57 19:09 PT INR Sodium Potassium Chloride Carbon Dioxide Anion Gap BUN Creatinine Estim Creat Clear Calc Estimated GFR POC Glucose 158 H 142 H 157 H Random Glucose Calcium B-Natriuretic Peptide 07/31/21 07/31/21 07/31/21 04:39 04:39 04:39 PT 24.2 H INR 2.1 H Sodium 136 Potassium 3.5 Chloride 91 L Carbon Dioxide 34 H Anion Gap 15 BUN 93 H Creatinine 1.99 H Estim Creat Clear Calc 54.3 Estimated GFR 35 POC Glucose Random Glucose 122 H Calcium 8.0 L B-Natriuretic Peptide 335 H 07/31/21 07:01 PT INR Sodium Potassium Chloride Carbon Dioxide Anion Gap BUN Creatinine Estim Creat Clear Calc Estimated GFR POC Glucose 141 H Random Glucose Calcium B-Natriuretic Peptide Progress Note: A&P Assessment and plan (1) Acute on chronic diastolic HF (heart failure): Status: Acute Assessment and Plan: Advanced and resistant heart failure syndrome with predominant right heart failure findings but has significant elevated pulmonary artery diastolic pressure consistent with advanced diastolic dysfunction setting of chronic atrial fibrillation. Will monitor his pressures tomorrow. Continue IV diuresis with IV Bumex drip and metolazone. Strict intake and output chart needs to be pursued. Continue monitor electrolytes and renal function. Renal function has remained stable. Overall prognosis is guarded given his advanced resistant heart failure syndrome. Will avoid Aldactone therapy due to his kidney dysfunction. Will continue to follow with you. Check CardioMEMS reading tomorrow. Continue hydralazine and isosorbide therapy for now. (2) Atrial fibrillation: Status: Acute Assessment and Plan: Atrial fibrillation rate controlled. Continue metoprolol therapy. Continue anticoagulation warfarin given his recent stroke. Target INR between 2 and 3. Will continue to follow with you Fall Risk Details Current Medications: Current Medications Acetaminophen (Acetaminophen 325 Mg Tablet) 650 mg PO Q6H PRN PRN Reason: Pain, Mild (Pain Scale 1-3) Last Admin: 07/26/21 16:12 Dose: 650 mg Documented by: Al Hydroxide/Mg Hydroxide (Magnesium Hydrox/Alum Hydrox 30 Ml Oral.Susp) 30 ml PO Q4H PRN PRN Reason: heartbirun Last Admin: 07/19/21 00:23 Dose: 30 ml Documented by: Amitriptyline HCl (Amitriptyline Hcl 50 Mg Tablet) 150 mg PO BEDTIME [facility] Last Admin: 07/30/21 20:48 Dose: 150 mg Documented by: Amitriptyline HCl (Amitriptyline Hcl 50 Mg Tablet) 50 mg PO DAILY [facility] Last Admin: 07/31/21 07:51 Dose: 50 mg Documented by: Ascorbic Acid (Ascorbic Acid 500 Mg Tablet) 500 mg PO DAILY [facility] Last Admin: 07/31/21 07:51 Dose: 500 mg Documented by: Atorvastatin Calcium (Atorvastatin Calcium 80 Mg Tablet) 80 mg PO DAILY [facility] Last Admin: 07/31/21 07:50 Dose: 80 mg Documented by: Bismuth Subsalicylate (Bismuth Subsalicylate Liquid 524 Mg/30 Ml Oral.Susp) 524 mg PO QID PRN PRN Reason: Indigestion Last Admin: 07/18/21 15:06 Dose: 524 mg Documented by: Dextrose (Dextrose 50 % 25 Gm/50 Ml Syringe) 25 gm IVPUSH Q15M PRN; Protocol PRN Reason: per Hypoglycemia Standing Ord. Docusate Sodium (Docusate Sodium 100 Mg Capsule) 100 mg PO DAILY PRN PRN Reason: Constipation Glucose (Glucose Gel 15 Gm Gel..Gram.) 15 gm PO Q15M PRN; Protocol PRN Reason: per Hypoglycemia Standing Ord. Hydralazine HCl (Hydralazine Hcl 25 Mg Tablet) 25 mg PO TID [facility]; Protocol Last Admin: 07/31/21 07:50 Dose: 25 mg Documented by: Bumetanide 25 mg/ IV (Miscellaneous Supplies) 100 mls @ 2 mls/hr IVCONT .Q24H [facility] Last Admin: 07/30/21 12:40 Dose: 0.5 mg/hr, 2 mls/hr Documented by: Insulin Human Lispro (Insulin Lispro 100 Unit/Ml 3 Ml Vial) 0 unit SUBCUT QIDACHS [facility]; Protocol Last Admin: 07/31/21 07:52 Dose: 2 unit Documented by: Isosorbide Mononitrate (Isosorbide Mononitrate 60 Mg Tab.Er.24h) 60 mg PO DAILY [facility]; Protocol Last Admin: 07/31/21 07:51 Dose: 60 mg Documented by: Lactic Acid (Ammonium Lactate 12 % Cream 140 Gm Tube) 1 appl TOPICAL DAILY [facility]; Protocol Last Admin: 07/31/21 07:54 Dose: 1 appl Documented by: Metolazone (Metolazone 5 Mg Tablet) 5 mg PO DAILY [facility] Last Admin: 07/31/21 07:51 Dose: 5 mg Documented by: Metoprolol Succinate (Metoprolol Succinate Er 25 Mg Tab.Er.24h) 25 mg PO DAILY [facility]; Protocol Last Admin: 07/31/21 07:50 Dose: 25 mg Documented by: Omeprazole (Omeprazole 40 Mg Capsule.) 40 mg PO BID@0630,1630 [facility] Last Admin: 07/31/21 05:51 Dose: 40 mg Documented by: Ondansetron HCl (Ondansetron Hcl 4 Mg/2 Ml Vial) 4 mg IVPUSH Q8H PRN PRN Reason: Nausea and Vomiting Last Admin: 07/19/21 06:16 Dose: 4 mg Documented by: Oxycodone HCl (Oxycodone Hcl Immed Release 5 Mg Tablet) 5 mg PO Q4H PRN PRN Reason: Pain, Severe (Pain Scale 7-10) Last Admin: 07/30/21 20:48 Dose: 5 mg Documented by: Pharmacy Consult (Consult Rx Perform Med Rec) 1 each MISCELLANE ONCE PRN PRN Reason: Consult order Potassium Chloride (Potassium Chloride Er 20 Meq Tab.Er.Prt) 60 meq PO BIDPC [facility] Last Admin: 07/31/21 07:49 Dose: 60 meq Documented by: Potassium Chloride (Potassium Chloride Er 20 Meq Tab.Er.Prt) 40 meq PO DAILY@1230 [facility] Last Admin: 07/30/21 12:12 Dose: 40 meq Documented by: Sodium Chloride (0.9 % Sodium Chloride Flush 3 Ml Syringe) 3 ml IVFLUSH QSHIFT [facility] Last Admin: 07/31/21 07:52 Dose: 3 ml Documented by: Warfarin Sodium (Warfarin Sodium 2 Mg Tablet) 2 mg PO DAILY@1800 [facility] Last Admin: 07/30/21 17:25 Dose: 2 mg Documented by: Time Spent With Patient Time: Total time spent is greater than 50% in coordination of care (as documented) at patient's floor/unit and/or counseling patient: Time with patient: 25 - 35 minutes Progress Note: Quality Stroke Does the patient have a stroke diagnosis?: No Procedures Date of Service Date of Service: 07/31/21
[2021-07-31 11:47] LABS: Glucose, Whole Blood 172 mg/dL (60-115)
[2021-07-31] MEDS: Potassium Chloride ER 20 MEQ TAB.ER.PRT 40 MEQ PO (12:08)
--- NOTE | 2021-07-31 12:46 | HO.PM.IMPN ---
Subjective Subjective Date of Service: 07/31/21 Interval History: the patient was seen and evaluated this morning still have scrotal swelling Still having hematuria, blood leaking around the Camilo No reported other overnight events. Systemic review: No fever, chills but has generalized weakness No chest pain, palpitation No shortness of breath or coughing No abdominal pain, nausea or vomiting Hematuria No any rash or wounds Physical Exam Vital Signs: Vital Signs: Last Vital Signs Temp 98.1 F 07/31/21 11:16 Pulse 65 07/31/21 11:16 Resp 18 07/31/21 11:16 BP 122/65 07/31/21 11:16 Pulse Ox 93 07/31/21 11:16 Oxygen Flow Rate 3 07/22/21 04:00 BMI result Body Mass Index 39.2 Const: Other: Gen:? Awake, alert in no acute distress Neck: supple, no increased JVD Lungs: Coarse breath sound, no wheeze, no crackles Heart: irregularly irregular, no murmurs Abd: soft, non-tender, non-distended, obese :? significant scrotal swelling , dry blood around Camilo catheter, Camilo with bloody urine Ext: venous stasis hyperpigmentation to shins, significant dependent edema both thighs and back Skin: warm/well-perfused Neuro: alert and oriented x3, no focal findings Psych: appropriate affect Objective Data Active Medications Acetaminophen (Acetaminophen 325 Mg Tablet) 650 mg PO Q6H PRN PRN Reason: Pain, Mild (Pain Scale 1-3) Last Admin: 07/26/21 16:12 Dose: 650 mg Documented by: KEITH Al Hydroxide/Mg Hydroxide (Magnesium Hydrox/Alum Hydrox 30 Ml Oral.Susp) 30 ml PO Q4H PRN PRN Reason: heartbirun Last Admin: 07/19/21 00:23 Dose: 30 ml Documented by: NAUMOC Amitriptyline HCl (Amitriptyline Hcl 50 Mg Tablet) 150 mg PO BEDTIME [facility] Last Admin: 07/30/21 20:48 Dose: 150 mg Documented by: HARRISON Amitriptyline HCl (Amitriptyline Hcl 50 Mg Tablet) 50 mg PO DAILY [facility] Last Admin: 07/31/21 07:51 Dose: 50 mg Documented by: LAZARUS Ascorbic Acid (Ascorbic Acid 500 Mg Tablet) 500 mg PO DAILY [facility] Last Admin: 07/31/21 07:51 Dose: 500 mg Documented by: LAZARUS Atorvastatin Calcium (Atorvastatin Calcium 80 Mg Tablet) 80 mg PO DAILY [facility] Last Admin: 07/31/21 07:50 Dose: 80 mg Documented by: LAZARUS Bismuth Subsalicylate (Bismuth Subsalicylate Liquid 524 Mg/30 Ml Oral.Susp) 524 mg PO QID PRN PRN Reason: Indigestion Last Admin: 07/18/21 15:06 Dose: 524 mg Documented by: LORE Dextrose (Dextrose 50 % 25 Gm/50 Ml Syringe) 25 gm IVPUSH Q15M PRN; Protocol PRN Reason: per Hypoglycemia Standing Ord. Docusate Sodium (Docusate Sodium 100 Mg Capsule) 100 mg PO DAILY PRN PRN Reason: Constipation Glucose (Glucose Gel 15 Gm Gel..Gram.) 15 gm PO Q15M PRN; Protocol PRN Reason: per Hypoglycemia Standing Ord. Hydralazine HCl (Hydralazine Hcl 25 Mg Tablet) 25 mg PO TID [facility]; Protocol Last Admin: 07/31/21 07:50 Dose: 25 mg Documented by: LAZARUS Bumetanide 25 mg/ IV (Miscellaneous Supplies) 100 mls @ 2 mls/hr IVCONT .Q24H [facility] Last Admin: 07/30/21 12:40 Dose: 0.5 mg/hr, 2 mls/hr Documented by: GALEN Insulin Human Lispro (Insulin Lispro 100 Unit/Ml 3 Ml Vial) 0 unit SUBCUT QIDACHS [facility]; Protocol Last Admin: 07/31/21 12:08 Dose: 4 unit Documented by: LAZARUS Isosorbide Mononitrate (Isosorbide Mononitrate 60 Mg Tab.Er.24h) 60 mg PO DAILY [facility]; Protocol Last Admin: 07/31/21 07:51 Dose: 60 mg Documented by: LAZARUS Lactic Acid (Ammonium Lactate 12 % Cream 140 Gm Tube) 1 appl TOPICAL DAILY [facility]; Protocol Last Admin: 07/31/21 07:54 Dose: 1 appl Documented by: LAZARUS Metolazone (Metolazone 5 Mg Tablet) 5 mg PO DAILY [facility] Last Admin: 07/31/21 07:51 Dose: 5 mg Documented by: LAZARUS Metoprolol Succinate (Metoprolol Succinate Er 25 Mg Tab.Er.24h) 25 mg PO DAILY [facility]; Protocol Last Admin: 07/31/21 07:50 Dose: 25 mg Documented by: LAZARUS Omeprazole (Omeprazole 40 Mg Capsule.Dr) 40 mg PO BID@0630,1630 [facility] Last Admin: 07/31/21 05:51 Dose: 40 mg Documented by: HARRISON Ondansetron HCl (Ondansetron Hcl 4 Mg/2 Ml Vial) 4 mg IVPUSH Q8H PRN PRN Reason: Nausea and Vomiting Last Admin: 07/19/21 06:16 Dose: 4 mg Documented by: GIL Oxycodone HCl (Oxycodone Hcl Immed Release 5 Mg Tablet) 5 mg PO Q4H PRN PRN Reason: Pain, Severe (Pain Scale 7-10) Last Admin: 07/30/21 20:48 Dose: 5 mg Documented by: HARRISON Pharmacy Consult (Consult Rx Perform Med Rec) 1 each MISCELLANE ONCE PRN PRN Reason: Consult order Potassium Chloride (Potassium Chloride Er 20 Meq Tab.Er.Prt) 60 meq PO BIDPC [facility] Last Admin: 07/31/21 07:49 Dose: 60 meq Documented by: LAZARUS Potassium Chloride (Potassium Chloride Er 20 Meq Tab.Er.Prt) 40 meq PO DAILY@1230 [facility] Last Admin: 07/31/21 12:08 Dose: 40 meq Documented by: LAZARUS Sodium Chloride (0.9 % Sodium Chloride Flush 3 Ml Syringe) 3 ml IVFLUSH QSHIFT [facility] Last Admin: 07/31/21 07:52 Dose: 3 ml Documented by: LAZARUS Warfarin Sodium (Warfarin Sodium 2 Mg Tablet) 2 mg PO DAILY@1800 [facility] Last Admin: 07/30/21 17:25 Dose: 2 mg Documented by: LAZARUS Labs CBC & Chem 7: 07/27/21 05:30 07/31/21 04:39 Labs: Laboratory Results - last 24 hr 07/30/21 07/30/21 07/31/21 15:57 19:09 04:39 PT 24.2 H INR 2.1 H Anion Gap Estim Creat Clear Calc Estimated GFR POC Glucose 142 H 157 H Random Glucose Calcium B-Natriuretic Peptide 07/31/21 07/31/21 07/31/21 04:39 04:39 07:01 PT INR Anion Gap 15 Estim Creat Clear Calc 54.3 Estimated GFR 35 POC Glucose 141 H Random Glucose 122 H Calcium 8.0 L B-Natriuretic Peptide 335 H 07/31/21 11:18 PT INR Anion Gap Estim Creat Clear Calc Estimated GFR POC Glucose 172 H Random Glucose Calcium B-Natriuretic Peptide Assessment and Plan (1) Anasarca: Status: Acute (2) Gross hematuria: Status: Acute (3) Acute on chronic diastolic HF (heart failure): Status: Acute (4) CVA (cerebral vascular accident): Status: Acute Plan 61yo M with HTN, HFpEF with cardioMEMS device in place, HLD, CAD, DM2, DARLENE, severe pHTN, AF on warfarin, CKD3-4, hx CVA, polycythemic vera, chronic hypoxic respiratory failure on 2L recent admission to [facility] for CHF exacerbation presenting with nausea/vomiting, dizziness # acute/chronic HFpEF - admitted to [facility] 06/26/21-07/13/21, diuresed 15L, discharged at 295 lb on torsemide 100mg bid + metolazone 5 mg daily - TTE 07/07/20 LVEF 50%, no RWMA, mild , mod pulm HTN - s/p IV furosemide 80 mg b.i.d, subsequently transitioned to by mouth torsemide 100 mg b.i.d, but noted to have significant persistent edema, Continue metolazone 5 mg daily and IV Bumex drip 0.5 mg on 07/27 Continue gentle diuresis follow BMP and BNP closely # hematuria/scrotal swelling Urine bloody tinged , some bleeding around Camilo ,continue Camilo, Keep scrotum elevated, and aggressively diurese hematuria was likely due to traumatic Camilo placement while on anticoagulation; hold off on starting clopdigrel, with keep INR around 2-2.5 To get urology evaluation # acute pontine CVA Improved conitnue statin start clopidogrel to replace ASA once Camilo removed since persistent bleeding around Camilo seen by Neurology no additional workup recommended # hypoK persistent low potassium, continue potassium 60 mg b.i.d., will add 40 mEq at noon, follow BMP while being diuresed # nausea/vomiting with 1 episode blood-streaked vomitus Brinda-Reyes tear.? has not recurred since admission s/p IV Protonix, now on oral PPI, repeat hematocrit is stable # permanent AF - continue metoprolol; d/c digoxin due to CKD - INR 2 today, cont. Coumadin 2 mg home dose 2.5 mg keep INR 2-2.5 # chronic hypoxic respiratory failure on 2L at home # DM2 with hypyerglycemia, A1c 8.6 - blood sugar stable, on correction-dose lispro.? on U-500 + Trulicity at home.? Continue diabetic diet and insulin sliding scale. # CAD - episode of chest pain resolved, troponins flat, continue statin, metoprolol, Imdur # acute on CKD4 - SCr back at baseline, BUN remains elevated and gradually trending down,no GI bleed noted # HTN - stable blood pressure on metoprolol, low-dose hydralazine, Imdur and now on IV Bumex drip, (amlodipine discontinued) # morbid obesity - outpt bariatrics evaluation can be considered # DARLENE - continue CPAP at bedtime and during naps # VTE ppx - on warfarin with INR 2 # dispo - plan home with VNA Quality Stroke Does the patient have a stroke diagnosis?: No VTE Prior VTE?: No VTE Risk Level:: Medical - moderate - high VTE Device Contraindication: N/A - Device Ordered VTE Drug Contraindication: Treatment Not Indicated
[2021-07-31] MEDS: Bumetanide 25 MG in Container,Empty 0 ML IVCONT (13:10)
[2021-07-31 16:52] LABS: Glucose, Whole Blood 177 mg/dL (60-115)
[2021-07-31] MEDS: Warfarin Sodium 2 MG TABLET PO (17:16)
[2021-07-31 20:44] LABS: Glucose, Whole Blood 151 mg/dL (60-115)
[2021-07-31] MEDS: Amitriptyline HCl 50 MG TABLET 150 MG PO (22:25)
[2021-08-01] VITALS (10 sets, daily range): BP systolic 103–117; BP diastolic 59–68; PULSE 61–70; RESP 14–18; TEMP 36.2–37; O2SAT 90–97
[2021-08-01 05:09] LABS: Anion Gap 12 (12-20); Blood Urea Nitrogen 95 mg/dL (9-16); Carbon Dioxide 35 mmol/L (22-29); Chloride 93 mmol/L (96-108); Estimated Glomerular Filt Rate 30; Glucose Random 134 mg/dL (60-115); Potassium 4.2 mmol/L (3.3-5.1); Sodium 136 mmol/L (135-145)
[2021-08-01 05:14] LABS: B Type Natriuretic Peptide 357 pg/mL (<100)
[2021-08-01] MEDS: Omeprazole 40 MG CAPSULE.DR PO ×2 (06:28→16:45)
[2021-08-01 07:53] LABS: Glucose, Whole Blood 145 mg/dL (60-115)
[2021-08-01] MEDS: Ascorbic Acid 500 MG TABLET PO (08:05)
[2021-08-01] MEDS: Insulin Lispro 100 UNIT/ML 3 ML VIAL SUBCUT ×4 (08:05→21:57)
[2021-08-01] MEDS: 0.9 % Sodium Chloride Flush 3 ML SYRINGE IVFLUSH ×3 (08:06→21:58)
[2021-08-01] MEDS: Isosorbide Mononitrate 60 MG TAB.ER.24H PO (08:06)
[2021-08-01] MEDS: metOLazone 5 MG TABLET PO (08:06)
[2021-08-01] MEDS: Metoprolol Succinate ER 25 MG TAB.ER.24H PO (08:06)
[2021-08-01] MEDS: hydrALAZINE HCl 25 MG TABLET PO ×2 (08:06→15:10)
[2021-08-01] MEDS: Amitriptyline HCl 50 MG TABLET PO (08:06)
[2021-08-01] MEDS: Potassium Chloride ER 20 MEQ TAB.ER.PRT 60 MEQ PO ×2 (08:06→16:45)
[2021-08-01] MEDS: Atorvastatin Calcium 80 MG TABLET PO (08:06)
[2021-08-01] MEDS: Ammonium Lactate 12 % Cream 140 GM TUBE 1 APPL TOPICAL (08:07)
[2021-08-01] MEDS: oxyCODONE HCl Immed Release 5 MG TABLET PO (08:13)
[2021-08-01 09:26] LABS: INTERNATIONAL NORM RATIO 2.3 (0.9-1.1); Prothrombin Time 26.3 SEC (9.9-13.0)
--- NOTE | 2021-08-01 10:15 | P.PNCA_ITS ---
Subjective Subjective Date of Service: 08/01/21 Principal diagnosis: Dizziness, CVA, afib, chronic diastolic HF Interval history: states that he is feeling OK. Breathing improved. Review of Systems Review of Systems Yes all other systems are reviewed and are negative Cardiovascular: Reports as per HPI, Reports no additional cardiovascular complaints, Denies acrocyanosis, Denies cool extremities, Denies painful fingertips, Denies chest pain, Denies chest pain at rest, Denies diaphoresis, Denies syncope, Denies irregular heart rhythm, Denies claudication, Denies leg edema, Denies lightheadedness, Denies palpitations and Denies dyspnea Respiratory: Denies dyspnea Denies syncope Endocrine: Denies palpitations Physical Exam Vital Signs: Last Vital Signs Temp 98.6 F 08/01/21 07:08 Pulse 70 08/01/21 09:14 Resp 18 08/01/21 07:08 BP 112/60 08/01/21 09:14 Pulse Ox 94 08/01/21 09:14 Verdana 4 Oxygen Flow Verdana 4 3 Verdana 4 07/22/21 Rate Verdana 4 04:00 Verdana 4 Verdana 4 BMI result Verdana 4 Body Mass Index Verdana 4 39.2 Verdana 4 Verdana 4 Const General: no acute distress HENMT Other: Unremarkable Neck Neck: Yes normal visual inspection Chest Chest palpation & inspection: normal inspection of the chest Resp Auscultation: no crackles and no wheezes Cardio Palpation: normal PMI Heart sounds: S1 normal heart sound present, S2 normal heart sound present, no gallops, Murmur heart sound present systolic III/ and no rubs GI Palpation (GI): Soft to palpation Back/Spine/Pelvis Other: unremarkable Skin Lesions: other Neuro Cranial nerves: Yes Other cranial nerve findings present Extrem General: Yes other Psych Mental Status: other Objective Labs and Meds Result diagrams: 07/27/21 05:30 08/01/21 04:11 Lab results: Laboratory Results - last 24 hr 07/31/21 07/31/21 07/31/21 11:18 15:52 20:37 PT INR Sodium Potassium Chloride Carbon Dioxide Anion Gap BUN Creatinine Estim Creat Clear Calc Estimated GFR POC Glucose 172 H 177 H 151 H Random Glucose Calcium B-Natriuretic Peptide 08/01/21 08/01/21 08/01/21 04:11 04:11 07:48 PT INR Sodium 136 Potassium 4.2 Chloride 93 L Carbon Dioxide 35 H Anion Gap 12 BUN 95 H Creatinine 2.25 H Estim Creat Clear Calc 48.0 Estimated GFR 30 POC Glucose 145 H Random Glucose 134 H Calcium 8.0 L B-Natriuretic Peptide 357 H 08/01/21 09:06 PT 26.3 H INR 2.3 H Sodium Potassium Chloride Carbon Dioxide Anion Gap BUN Creatinine Estim Creat Clear Calc Estimated GFR POC Glucose Random Glucose Calcium B-Natriuretic Peptide Progress Note: A&P Assessment and plan (1) Acute on chronic diastolic HF (heart failure): Status: Acute (2) Permanent atrial fibrillation: Status: Acute (3) Pulmonary hypertension: Status: Acute Plan Echocardiogram from last year-LVEF 50%. Right ventricle cavity dilated with impaired function. Moderately dilated left atrium. No significant mitral regurgitation. Mild tricuspid regurgitation. RVSP of 64 mm Hg, RA pressure of 15 mm Hg. Mild . On telemetry, he is in atrial fibrillation with controlled rate. Based on input output chart, he is almost 25 L negative since the time of admission. Creatinine is 2.25. BUN is 95. Cardiac BNP is 357. Admission cardiac BNP was 487. Overall, clinically seems fairly euvolemic. At this time, we can plan on stopping the Bumex drip and put him back on his usual dose of torsemide. Fall Risk Details Current Medications: Current Medications Acetaminophen (Acetaminophen 325 Mg Tablet) 650 mg PO Q6H PRN PRN Reason: Pain, Mild (Pain Scale 1-3) Last Admin: 07/26/21 16:12 Dose: 650 mg Documented by: Al Hydroxide/Mg Hydroxide (Magnesium Hydrox/Alum Hydrox 30 Ml Oral.Susp) 30 ml PO Q4H PRN PRN Reason: heartbirun Last Admin: 07/19/21 00:23 Dose: 30 ml Documented by: Amitriptyline HCl (Amitriptyline Hcl 50 Mg Tablet) 150 mg PO BEDTIME [facility] Last Admin: 07/31/21 22:25 Dose: 150 mg Documented by: Amitriptyline HCl (Amitriptyline Hcl 50 Mg Tablet) 50 mg PO DAILY [facility] Last Admin: 08/01/21 08:06 Dose: 50 mg Documented by: Ascorbic Acid (Ascorbic Acid 500 Mg Tablet) 500 mg PO DAILY [facility] Last Admin: 08/01/21 08:05 Dose: 500 mg Documented by: Atorvastatin Calcium (Atorvastatin Calcium 80 Mg Tablet) 80 mg PO DAILY [facility] Last Admin: 08/01/21 08:06 Dose: 80 mg Documented by: Bismuth Subsalicylate (Bismuth Subsalicylate Liquid 524 Mg/30 Ml Oral.Susp) 524 mg PO QID PRN PRN Reason: Indigestion Last Admin: 07/18/21 15:06 Dose: 524 mg Documented by: Dextrose (Dextrose 50 % 25 Gm/50 Ml Syringe) 25 gm IVPUSH Q15M PRN; Protocol PRN Reason: per Hypoglycemia Standing Ord. Docusate Sodium (Docusate Sodium 100 Mg Capsule) 100 mg PO DAILY PRN PRN Reason: Constipation Glucose (Glucose Gel 15 Gm Gel..Gram.) 15 gm PO Q15M PRN; Protocol PRN Reason: per Hypoglycemia Standing Ord. Hydralazine HCl (Hydralazine Hcl 25 Mg Tablet) 25 mg PO TID [facility]; Protocol Last Admin: 08/01/21 08:06 Dose: 25 mg Documented by: Bumetanide 25 mg/ IV (Miscellaneous Supplies) 100 mls @ 2 mls/hr IVCONT .Q24H [facility] Last Admin: 07/31/21 13:10 Dose: 0.5 mg/hr, 2 mls/hr Documented by: Insulin Human Lispro (Insulin Lispro 100 Unit/Ml 3 Ml Vial) 0 unit SUBCUT QIDACHS [facility]; Protocol Last Admin: 08/01/21 08:05 Dose: 2 unit Documented by: Isosorbide Mononitrate (Isosorbide Mononitrate 60 Mg Tab.Er.24h) 60 mg PO DAILY [facility]; Protocol Last Admin: 08/01/21 08:06 Dose: 60 mg Documented by: Lactic Acid (Ammonium Lactate 12 % Cream 140 Gm Tube) 1 appl TOPICAL DAILY [facility]; Protocol Last Admin: 08/01/21 08:07 Dose: 1 appl Documented by: Metolazone (Metolazone 5 Mg Tablet) 5 mg PO DAILY [facility] Last Admin: 08/01/21 08:06 Dose: 5 mg Documented by: Metoprolol Succinate (Metoprolol Succinate Er 25 Mg Tab.Er.24h) 25 mg PO DAILY [facility]; Protocol Last Admin: 08/01/21 08:06 Dose: 25 mg Documented by: Omeprazole (Omeprazole 40 Mg Capsule.Dr) 40 mg PO BID@0630,1630 [facility] Last Admin: 08/01/21 06:28 Dose: 40 mg Documented by: Ondansetron HCl (Ondansetron Hcl 4 Mg/2 Ml Vial) 4 mg IVPUSH Q8H PRN PRN Reason: Nausea and Vomiting Last Admin: 07/19/21 06:16 Dose: 4 mg Documented by: Oxycodone HCl (Oxycodone Hcl Immed Release 5 Mg Tablet) 5 mg PO Q4H PRN PRN Reason: Pain, Severe (Pain Scale 7-10) Last Admin: 08/01/21 08:13 Dose: 5 mg Documented by: Pharmacy Consult (Consult Rx Perform Med Rec) 1 each MISCELLANE ONCE PRN PRN Reason: Consult order Potassium Chloride (Potassium Chloride Er 20 Meq Tab.Er.Prt) 60 meq PO BIDPC [facility] Last Admin: 08/01/21 08:06 Dose: 60 meq Documented by: Potassium Chloride (Potassium Chloride Er 20 Meq Tab.Er.Prt) 40 meq PO DAILY@1230 [facility] Last Admin: 07/31/21 12:08 Dose: 40 meq Documented by: Sodium Chloride (0.9 % Sodium Chloride Flush 3 Ml Syringe) 3 ml IVFLUSH QSHIFT [facility] Last Admin: 08/01/21 08:06 Dose: 3 ml Documented by: Warfarin Sodium (Warfarin Sodium 2 Mg Tablet) 2 mg PO DAILY@1800 [facility] Stop: 08/03/21 06:00 Last Admin: 07/31/21 17:16 Dose: 2 mg Documented by: Time Spent With Patient Time: Total time spent is greater than 50% in coordination of care (as documented) at patient's floor/unit and/or counseling patient: Time with patient: less than 15 minutes Progress Note: Quality Stroke Does the patient have a stroke diagnosis?: No Procedures Date of Service Date of Service: 08/01/21
--- NOTE | 2021-08-01 10:35 | P.PNIM_ITS ---
Subjective Subjective Date of Service: 08/01/21 Interval History: the patient was seen and evaluated this morning still have scrotal swelling Still having hematuria, blood leaking around the Camilo Drop in hemoglobin over the course of hospital stay No reported other overnight events. Systemic review: No fever, chills but has generalized weakness No chest pain, palpitation No shortness of breath or coughing No abdominal pain, nausea or vomiting Hematuria No any rash or wounds Physical Exam Verdana 4l Vital Signs: Verdana 4d Verdana 4d Vital Signs: Verdana 4d Verdana 4Bd Last Vital Signs Verdana 4d Sales Representative Sales Manager New 4d Sales Representative Sales Manager New 4d Temp 98.6 F 08/01/21 07:08 Sales Representative Sales Manager New 4d Pulse 70 08/01/21 09:14 Sales Representative Sales Manager New 4d Resp 18 08/01/21 07:08 BP 112/60 08/01/21 09:14 Pulse Ox 94 08/01/21 09:14 Oxygen Flow Rate 3 07/22/21 04:00 BMI result Body Mass Index 39.2 Const: Other: Gen:? Awake, alert in no acute distress Neck: supple, no increased JVD Lungs: Coarse breath sound, no wheeze, no crackles Heart: irregularly irregular, no murmurs Abd: soft, non-tender, non-distended, obese :? significant scrotal swelling , dry blood around Camilo catheter, Camilo with bloody urine Ext: venous stasis hyperpigmentation to shins, significant dependent edema both thighs and back Skin: warm/well-perfused Neuro: alert and oriented x3, no focal findings Psych: appropriate affect Objective Data Active Medications Acetaminophen (Acetaminophen 325 Mg Tablet) 650 mg PO Q6H PRN PRN Reason: Pain, Mild (Pain Scale 1-3) Last Admin: 07/26/21 16:12 Dose: 650 mg Documented by: KEITH Al Hydroxide/Mg Hydroxide (Magnesium Hydrox/Alum Hydrox 30 Ml Oral.Susp) 30 ml PO Q4H PRN PRN Reason: heartbirun Last Admin: 07/19/21 00:23 Dose: 30 ml Documented by: GIL Amitriptyline HCl (Amitriptyline Hcl 50 Mg Tablet) 150 mg PO BEDTIME [facility] Last Admin: 07/31/21 22:25 Dose: 150 mg Documented by: KIRTI Amitriptyline HCl (Amitriptyline Hcl 50 Mg Tablet) 50 mg PO DAILY REPLACED BY [facility] Last Admin: 08/01/21 08:06 Dose: 50 mg Documented by: RYAN Ascorbic Acid (Ascorbic Acid 500 Mg Tablet) 500 mg PO DAILY REPLACED BY [facility] Last Admin: 08/01/21 08:05 Dose: 500 mg Documented by: RYAN Atorvastatin Calcium (Atorvastatin Calcium 80 Mg Tablet) 80 mg PO DAILY REPLACED BY [facility] Last Admin: 08/01/21 08:06 Dose: 80 mg Documented by: RYAN Bismuth Subsalicylate (Bismuth Subsalicylate Liquid 524 Mg/30 Ml Oral.Susp) 524 mg PO QID PRN PRN Reason: Indigestion Last Admin: 07/18/21 15:06 Dose: 524 mg Documented by: LORE Dextrose (Dextrose 50 % 25 Gm/50 Ml Syringe) 25 gm IVPUSH Q15M PRN; Protocol PRN Reason: per Hypoglycemia Standing Ord. Docusate Sodium (Docusate Sodium 100 Mg Capsule) 100 mg PO DAILY PRN PRN Reason: Constipation Glucose (Glucose Gel 15 Gm Gel..Gram.) 15 gm PO Q15M PRN; Protocol PRN Reason: per Hypoglycemia Standing Ord. Hydralazine HCl (Hydralazine Hcl 25 Mg Tablet) 25 mg PO TID REPLACED BY [facility]; Protocol Last Admin: 08/01/21 08:06 Dose: 25 mg Documented by: RYAN Bumetanide 25 mg/ IV (Miscellaneous Supplies) 100 mls @ 2 mls/hr IVCONT .Q24H REPLACED BY [facility] Last Admin: 07/31/21 13:10 Dose: 0.5 mg/hr, 2 mls/hr Documented by: LAZARUS Insulin Human Lispro (Insulin Lispro 100 Unit/Ml 3 Ml Vial) 0 unit SUBCUT QIDACHS REPLACED BY [facility]; Protocol Last Admin: 08/01/21 08:05 Dose: 2 unit Documented by: RYAN Isosorbide Mononitrate (Isosorbide Mononitrate 60 Mg Tab.Er.24h) 60 mg PO DAILY REPLACED BY [facility]; Protocol Last Admin: 08/01/21 08:06 Dose: 60 mg Documented by: RYAN Lactic Acid (Ammonium Lactate 12 % Cream 140 Gm Tube) 1 appl TOPICAL DAILY REPLACED BY [facility]; Protocol Last Admin: 08/01/21 08:07 Dose: 1 appl Documented by: RYAN Metolazone (Metolazone 5 Mg Tablet) 5 mg PO DAILY REPLACED BY [facility] Last Admin: 08/01/21 08:06 Dose: 5 mg Documented by: RYAN Metoprolol Succinate (Metoprolol Succinate Er 25 Mg Tab.Er.24h) 25 mg PO DAILY REPLACED BY [facility]; Protocol Last Admin: 08/01/21 08:06 Dose: 25 mg Documented by: RYAN Omeprazole (Omeprazole 40 Mg Capsule.Dr) 40 mg PO BID@0630,1630 REPLACED BY [facility] Last Admin: 08/01/21 06:28 Dose: 40 mg Documented by: KIRTI Ondansetron HCl (Ondansetron Hcl 4 Mg/2 Ml Vial) 4 mg IVPUSH Q8H PRN PRN Reason: Nausea and Vomiting Last Admin: 07/19/21 06:16 Dose: 4 mg Documented by: GIL Oxycodone HCl (Oxycodone Hcl Immed Release 5 Mg Tablet) 5 mg PO Q4H PRN PRN Reason: Pain, Severe (Pain Scale 7-10) Last Admin: 08/01/21 08:13 Dose: 5 mg Documented by: RYAN Pharmacy Consult (Consult Rx Perform Med Rec) 1 each MISCELLANE ONCE PRN PRN Reason: Consult order Potassium Chloride (Potassium Chloride Er 20 Meq Tab.Er.Prt) 60 meq PO BIDPC REPLACED BY [facility] Last Admin: 08/01/21 08:06 Dose: 60 meq Documented by: RYAN Potassium Chloride (Potassium Chloride Er 20 Meq Tab.Er.Prt) 40 meq PO DAILY@1230 REPLACED BY [facility] Last Admin: 07/31/21 12:08 Dose: 40 meq Documented by: LAZARUS Sodium Chloride (0.9 % Sodium Chloride Flush 3 Ml Syringe) 3 ml IVFLUSH QSHIFT REPLACED BY [facility] Last Admin: 08/01/21 08:06 Dose: 3 ml Documented by: RYAN Warfarin Sodium (Warfarin Sodium 2 Mg Tablet) 2 mg PO DAILY@1800 REPLACED BY [facility] Stop: 08/03/21 06:00 Last Admin: 07/31/21 17:16 Dose: 2 mg Documented by: LAZARUS Labs CBC & Chem 7: 07/27/21 05:30 08/01/21 04:11 Labs: Laboratory Results - last 24 hr 07/31/21 07/31/21 07/31/21 11:18 15:52 20:37 PT INR Anion Gap Estim Creat Clear Calc Estimated GFR POC Glucose 172 H 177 H 151 H Random Glucose Calcium B-Natriuretic Peptide 08/01/21 08/01/21 08/01/21 04:11 04:11 07:48 PT INR Anion Gap 12 Estim Creat Clear Calc 48.0 Estimated GFR 30 POC Glucose 145 H Random Glucose 134 H Calcium 8.0 L B-Natriuretic Peptide 357 H 08/01/21 09:06 PT 26.3 H INR 2.3 H Anion Gap Estim Creat Clear Calc Estimated GFR POC Glucose Random Glucose Calcium B-Natriuretic Peptide Assessment and Plan (1) Anasarca: Status: Acute (2) Gross hematuria: Status: Acute (3) Acute blood loss anemia (ABLA): Status: Acute Plan 61yo M with HTN, HFpEF with cardioMEMS device in place, HLD, CAD, DM2, DARLENE, severe pHTN, AF on warfarin, CKD3-4, hx CVA, polycythemic vera, chronic hypoxic respiratory failure on 2L recent admission to [facility] for CHF exacerbation presenting with nausea/vomiting, dizziness # acute/chronic HFpEF diuresed almost 25L druing this hospital stay TTE 07/07/20 LVEF 50%, no RWMA, mild , mod pulm HTN Dc Bumex drip Continue metolazone 5 mg daily Start Torsemide home dose follow BMP and BNP # Acute blood loss anemia # 2/2 hematuria/scrotal swelling Hemoglobin dropped to almost 11 from baseline of 14, no transfusion needed at this point Urine bloody tinged , some bleeding around Camilo ,continue Camilo, Keep scrotum elevated hematuria was likely due to traumatic Camilo placement while on anticoagulation; hold off on starting clopdigrel, with keep INR around 2-2.5 Pending urology evaluation # acute pontine CVA Improved conitnue statin start clopidogrel to replace ASA once Camilo removed since persistent bleeding around Camilo seen by Neurology no additional workup recommended # hypoK resolved continue potassium 60 mg b.i.d. follow BMP while being diuresed # nausea/vomiting with 1 episode blood-streaked vomitus Brinda-Reyes tear.? has not recurred since admission s/p IV Protonix, now on oral PPI, repeat hematocrit is stable # permanent AF continue metoprolol; d/c digoxin due to CKD INR 2 today, cont. Coumadin 2 mg home dose 2.5 mg keep INR 2-2.5 # chronic hypoxic respiratory failure on 2L at home # DM2 with hypyerglycemia, A1c 8.6 blood sugar stable, on correction-dose lispro.? on U-500 + Trulicity at home.? Continue diabetic diet and insulin sliding scale. # CAD episode of chest pain resolved, troponins flat, continue statin, metoprolol, Imdur # acute on CKD4 SCr back at baseline, BUN remains elevated and gradually trending down,no GI bleed noted # HTN stable blood pressure on metoprolol, low-dose hydralazine, Imdur and now on IV Bumex drip, (amlodipine discontinued) # morbid obesity outpt bariatrics evaluation can be considered # DARLENE continue CPAP at bedtime and during naps # VTE ppx on warfarin with INR 2 # dispo plan home with VNA Quality Stroke Does the patient have a stroke diagnosis?: No VTE Prior VTE?: No VTE Risk Level:: Medical - moderate - high VTE Device Contraindication: N/A - Device Ordered VTE Drug Contraindication: Treatment Not Indicated
--- NOTE | 2021-08-01 10:41 | MHC.CLN ---
NUTRITION DIET=DIABETIC 2000 KCAL, 2 GRAM SODIUM. SUPPLEMENT GLUCERNA TID PROVIDES 710 KCAL, 30 G PROTEIN. INTAKE AT MEALS OVER PAST 4 DAYS 75-100%. SUPPLEMENT APPROPRIATE TO PROMOTE WOUND HEALING. FOLLOW FOR INTAKE AND WOUND HEALING.
[2021-08-01] MEDS: Torsemide 20 MG TABLET 100 MG PO (10:48)
[2021-08-01 11:53] LABS: Glucose, Whole Blood 190 mg/dL (60-115)
[2021-08-01] MEDS: Potassium Chloride ER 20 MEQ TAB.ER.PRT 40 MEQ PO (12:01)
--- NOTE | 2021-08-01 12:52 | MHC.CM.PN ---
EMR REVIEWED, PT CONT'S TO HAVE HEMATURIA, UROLOGY CONSULT PENDING, NO PLNA FOR D/C TODAY, CM WILL FOLLOW-UP W/PT AND [facility] FAMILY TO [facility] D/C PLAN. DCP: HOME W/SERVICES VS STR, FAMILY VS BLS TRANSPORT.
[2021-08-01] MEDS: Acetaminophen 325 MG TABLET 650 MG PO (15:10)
[2021-08-01 16:11] LABS: Glucose, Whole Blood 221 mg/dL (60-115)
[2021-08-01 19:59] LABS: Glucose, Whole Blood 216 mg/dL (60-115)
[2021-08-01] MEDS: Amitriptyline HCl 50 MG TABLET 150 MG PO (21:58)
[2021-08-02] VITALS (8 sets, daily range): BP systolic 101–117; BP diastolic 63–67; PULSE 59–79; RESP 16–18; TEMP 36–36.9; O2SAT 91–97
[2021-08-02] MEDS: Omeprazole 40 MG CAPSULE.DR PO ×2 (05:38→18:01)
[2021-08-02 06:46] LABS: INTERNATIONAL NORM RATIO 2.5 (0.9-1.1); Prothrombin Time 28.4 SEC (9.9-13.0)
[2021-08-02 07:03] LABS: Anion Gap 11 (12-20); Blood Urea Nitrogen 95 mg/dL (9-16); Carbon Dioxide 35 mmol/L (22-29); Chloride 94 mmol/L (96-108); Creatinine Clr Calc Pharmacy 44.5; Estimated Glomerular Filt Rate 27; Glucose Random 137 mg/dL (60-115); Potassium 4.4 mmol/L (3.3-5.1); Sodium 136 mmol/L (135-145)
[2021-08-02 08:17] LABS: Glucose, Whole Blood 143 mg/dL (60-115)
--- NOTE | 2021-08-02 08:43 | P.PNUR_ITS ---
Subjective Subjective Date of Service: 08/02/21 Interval history: Continues therapy for CHF Has intermittent hematuria Urine today looks clear on exam Scrotal swelling persists Anasarca is being treated Continue with catheter Physical Exam Verdana 4l Vital Signs: Verdana 4d Verdana 4d Vital Signs: Verdana 4d Verdana 4Bd Last Vital Signs Verdana 4d Client Technical Support Associate New 4d Client Technical Support Associate New 4d Temp 97.6 F 08/02/21 07:18 Client Technical Support Associate New 4d Pulse 60 08/02/21 07:18 Client Technical Support Associate New 4d Resp 18 08/02/21 07:18 BP 101/65 08/02/21 07:18 Pulse Ox 91 L 08/02/21 07:18 Oxygen Flow Rate 3 07/22/21 04:00 BMI result Body Mass Index 39.2 Const: General: cooperative, healthy appearing, comfortable and no acute distress Orientation/consciousness: patient oriented x3 HENMT: Face and sinus: Yes normal facial exam Mouth: moist mucous membranes Neck: Neck: Yes normal visual inspection, Yes full ROM and Yes trachea midline Chest: Chest palpation & inspection: normal inspection of the chest Resp: Effort & Inspection: normal respiratory effort, able to speak in complete sentences and no respiratory distress GI: Inspection: Yes normal to inspection Back/Spine/Pelvis: Cervical Spine: normal cervical lordosis Thoracic/Lumbar Spine: thoracic and lumbar spine normal to inspection Skin: General skin exam: no rashes or lesions noted Neuro: General: patient oriented x3, tone normal and moves all extremities Extrem: General: Yes normal to inspection and Yes capillary refill normal Urology Results Labs CBC & Chem 7: 07/27/21 05:30 08/02/21 06:20 Labs: Laboratory Results - last 24 hr 08/01/21 08/01/21 08/01/21 09:06 11:27 16:06 PT 26.3 H INR 2.3 H Sodium Potassium Chloride Carbon Dioxide Anion Gap BUN Creatinine Estim Creat Clear Calc Estimated GFR POC Glucose 190 H 221 H Random Glucose Calcium 08/01/21 08/02/21 08/02/21 19:51 06:20 06:20 PT 28.4 H INR 2.5 H Sodium 136 Potassium 4.4 Chloride 94 L Carbon Dioxide 35 H Anion Gap 11 L BUN 95 H Creatinine 2.43 H Estim Creat Clear Calc 44.5 Estimated GFR 27 POC Glucose 216 H Random Glucose 137 H Calcium 8.0 L 08/02/21 08:08 PT INR Sodium Potassium Chloride Carbon Dioxide Anion Gap BUN Creatinine Estim Creat Clear Calc Estimated GFR POC Glucose 143 H Random Glucose Calcium Progress Note: A&P Assessment and plan (1) Anasarca: Status: Acute (2) Intermittent gross hematuria: Status: Acute Plan Continue with catheter Fall Risk Details Current Medications: Current Medications Acetaminophen (Acetaminophen 325 Mg Tablet) 650 mg PO Q6H PRN PRN Reason: Pain, Mild (Pain Scale 1-3) Last Admin: 08/01/21 15:10 Dose: 650 mg Documented by: Al Hydroxide/Mg Hydroxide (Magnesium Hydrox/Alum Hydrox 30 Ml Oral.Susp) 30 ml PO Q4H PRN PRN Reason: heartbirun Last Admin: 07/19/21 00:23 Dose: 30 ml Documented by: Amitriptyline HCl (Amitriptyline Hcl 50 Mg Tablet) 150 mg PO BEDTIME [facility] Last Admin: 08/01/21 21:58 Dose: 150 mg Documented by: Amitriptyline HCl (Amitriptyline Hcl 50 Mg Tablet) 50 mg PO DAILY [facility] Last Admin: 08/01/21 08:06 Dose: 50 mg Documented by: Ascorbic Acid (Ascorbic Acid 500 Mg Tablet) 500 mg PO DAILY [facility] Last Admin: 08/01/21 08:05 Dose: 500 mg Documented by: Atorvastatin Calcium (Atorvastatin Calcium 80 Mg Tablet) 80 mg PO DAILY [facility] Last Admin: 08/01/21 08:06 Dose: 80 mg Documented by: Bismuth Subsalicylate (Bismuth Subsalicylate Liquid 524 Mg/30 Ml Oral.Susp) 524 mg PO QID PRN PRN Reason: Indigestion Last Admin: 07/18/21 15:06 Dose: 524 mg Documented by: Dextrose (Dextrose 50 % 25 Gm/50 Ml Syringe) 25 gm IVPUSH Q15M PRN; Protocol PRN Reason: per Hypoglycemia Standing Ord. Docusate Sodium (Docusate Sodium 100 Mg Capsule) 100 mg PO DAILY PRN PRN Reason: Constipation Glucose (Glucose Gel 15 Gm Gel..Gram.) 15 gm PO Q15M PRN; Protocol PRN Reason: per Hypoglycemia Standing Ord. Hydralazine HCl (Hydralazine Hcl 25 Mg Tablet) 25 mg PO TID [facility]; Protocol Last Admin: 01/31/22 21:58 Dose: Not Given Documented by: Insulin Human Lispro (Insulin Lispro 100 Unit/Ml 3 Ml Vial) 0 unit SUBCUT QIDACHS [facility]; Protocol Last Admin: 08/01/21 21:57 Dose: 6 unit Documented by: Isosorbide Mononitrate (Isosorbide Mononitrate 60 Mg Tab.Er.24h) 60 mg PO DAILY [facility]; Protocol Last Admin: 08/01/21 08:06 Dose: 60 mg Documented by: Lactic Acid (Ammonium Lactate 12 % Cream 140 Gm Tube) 1 appl TOPICAL DAILY [facility]; Protocol Last Admin: 08/01/21 08:07 Dose: 1 appl Documented by: Metolazone (Metolazone 5 Mg Tablet) 5 mg PO DAILY [facility] Last Admin: 08/01/21 08:06 Dose: 5 mg Documented by: Metoprolol Succinate (Metoprolol Succinate Er 25 Mg Tab.Er.24h) 25 mg PO DAILY [facility]; Protocol Last Admin: 08/01/21 08:06 Dose: 25 mg Documented by: Omeprazole (Omeprazole 40 Mg Capsule.) 40 mg PO BID@0630,1630 [facility] Last Admin: 08/02/21 05:38 Dose: 40 mg Documented by: Ondansetron HCl (Ondansetron Hcl 4 Mg/2 Ml Vial) 4 mg IVPUSH Q8H PRN PRN Reason: Nausea and Vomiting Last Admin: 07/19/21 06:16 Dose: 4 mg Documented by: Oxycodone HCl (Oxycodone Hcl Immed Release 5 Mg Tablet) 5 mg PO Q4H PRN PRN Reason: Pain, Severe (Pain Scale 7-10) Last Admin: 08/01/21 08:13 Dose: 5 mg Documented by: Pharmacy Consult (Consult Rx Perform Med Rec) 1 each MISCELLANE ONCE PRN PRN Reason: Consult order Potassium Chloride (Potassium Chloride Er 20 Meq Tab.Er.Prt) 60 meq PO BIDPC [facility] Last Admin: 08/01/21 16:45 Dose: 60 meq Documented by: Potassium Chloride (Potassium Chloride Er 20 Meq Tab.Er.Prt) 40 meq PO DAILY@1230 [facility] Last Admin: 08/01/21 12:01 Dose: 40 meq Documented by: Sodium Chloride (0.9 % Sodium Chloride Flush 3 Ml Syringe) [facility] Last Admin: 08/01/21 21:58 Dose: 3 ml Documented by: Torsemide (Torsemide 20 Mg Tablet) 100 mg PO BID [facility]; Protocol Last Admin: 08/01/21 21:58 Dose: Not Given Documented by: Warfarin Sodium (Warfarin Sodium 2 Mg Tablet) 2 mg PO DAILY@1800 [facility] Stop: 08/03/21 06:00 Last Admin: 07/31/21 17:16 Dose: 2 mg Documented by: Time Spent With Patient Time: Total time spent is greater than 50% in coordination of care (as documented) at patient's floor/unit and/or counseling patient: Time with patient: less than 15 minutes Progress Note: Quality Stroke Does the patient have a stroke diagnosis?: No
[2021-08-02] MEDS: Insulin Lispro 100 UNIT/ML 3 ML VIAL SUBCUT ×4 (09:34→21:11)
[2021-08-02] MEDS: Potassium Chloride ER 20 MEQ TAB.ER.PRT 60 MEQ PO ×2 (09:34→18:01)
[2021-08-02] MEDS: 0.9 % Sodium Chloride Flush 3 ML SYRINGE IVFLUSH ×3 (09:34→21:11)
[2021-08-02] MEDS: Ascorbic Acid 500 MG TABLET PO (09:35)
[2021-08-02] MEDS: Metoprolol Succinate ER 25 MG TAB.ER.24H PO (09:35)
[2021-08-02] MEDS: Atorvastatin Calcium 80 MG TABLET PO (09:35)
[2021-08-02] MEDS: Amitriptyline HCl 50 MG TABLET PO (09:35)
[2021-08-02] MEDS: metOLazone 5 MG TABLET PO (09:35)
[2021-08-02] MEDS: Torsemide 20 MG TABLET 100 MG PO ×2 (09:35→21:10)
[2021-08-02] MEDS: Ammonium Lactate 12 % Cream 140 GM TUBE 1 APPL TOPICAL (09:36)
--- NOTE | 2021-08-02 09:45 | P.PNCA_ITS ---
Subjective Subjective Date of Service: 08/02/21 Principal diagnosis: Dizziness, CVA, afib, chronic diastolic HF Interval history: States that he is tired. Did not sleep good. But not short of breath. Review of Systems Review of Systems Yes all other systems are reviewed and are negative Cardiovascular: Reports as per HPI, Reports no additional cardiovascular complaints, Denies acrocyanosis, Denies cool extremities, Denies painful fingertips, Denies chest pain, Denies chest pain at rest, Denies diaphoresis, Denies syncope, Denies irregular heart rhythm, Denies claudication, Denies leg edema, Denies lightheadedness, Denies palpitations and Denies dyspnea Respiratory: Denies dyspnea Denies syncope Endocrine: Denies palpitations Physical Exam Vital Signs: Last Vital Signs Temp 97.6 F 08/02/21 07:18 Pulse 60 08/02/21 07:18 Resp 18 08/02/21 07:18 BP 101/65 08/02/21 07:18 Pulse Ox 91 L 08/02/21 07:18 Verdana 4 Oxygen Flow Verdana 4 3 Verdana 4 07/22/21 Rate Verdana 4 04:00 Verdana 4 Verdana 4 BMI result Verdana 4 Body Mass Index Verdana 4 39.2 Verdana 4 Verdana 4 Const General: no acute distress HENMT Other: Unremarkable Neck Neck: Yes normal visual inspection Chest Chest palpation & inspection: normal inspection of the chest Resp Auscultation: no crackles and no wheezes Cardio Palpation: normal PMI Heart sounds: S1 normal heart sound present, S2 normal heart sound present, no gallops, Murmur heart sound present systolic III/ and no rubs GI Palpation (GI): Soft to palpation Back/Spine/Pelvis Other: unremarkable Skin Lesions: other Neuro Cranial nerves: Yes Other cranial nerve findings present Extrem Other: Chronic changes with only minimal edema. General: Yes other Psych Mental Status: other Objective Labs and Meds Result diagrams: 07/27/21 05:30 08/02/21 06:20 Lab results: Laboratory Results - last 24 hr 08/01/21 08/01/21 08/01/21 11:27 16:06 19:51 PT INR Sodium Potassium Chloride Carbon Dioxide Anion Gap BUN Creatinine Estim Creat Clear Calc Estimated GFR POC Glucose 190 H 221 H 216 H Random Glucose Calcium 08/02/21 08/02/21 08/02/21 06:20 06:20 08:08 PT 28.4 H INR 2.5 H Sodium 136 Potassium 4.4 Chloride 94 L Carbon Dioxide 35 H Anion Gap 11 L BUN 95 H Creatinine 2.43 H Estim Creat Clear Calc 44.5 Estimated GFR 27 POC Glucose 143 H Random Glucose 137 H Calcium 8.0 L Progress Note: A&P Assessment and plan (1) Acute on chronic diastolic HF (heart failure): Status: Acute (2) Permanent atrial fibrillation: Status: Acute (3) Pulmonary hypertension: Status: Acute Plan Echocardiogram from last year-LVEF 50%. Right ventricle cavity dilated with impaired function. Moderately dilated left atrium. No significant mitral regurgitation. Mild tricuspid regurgitation. RVSP of 64 mm Hg, RA pressure of 15 mm Hg. Mild . On telemetry, he is in atrial fibrillation with controlled rate. Based on input output chart, he is almost 25 L negative since the time of admission. Creatinine is 2.4. BUN is 95. Cardiac BNP is 357. Admission cardiac BNP was 487. Overall, clinically seems fairly euvolemic. Off Bumex. On oral Torsemide. Renal function will need to be followed. Fall Risk Details Current Medications: Current Medications Acetaminophen (Acetaminophen 325 Mg Tablet) 650 mg PO Q6H PRN PRN Reason: Pain, Mild (Pain Scale 1-3) Last Admin: 08/01/21 15:10 Dose: 650 mg Documented by: Al Hydroxide/Mg Hydroxide (Magnesium Hydrox/Alum Hydrox 30 Ml Oral.Susp) 30 ml PO Q4H PRN PRN Reason: heartbirun Last Admin: 07/19/21 00:23 Dose: 30 ml Documented by: Amitriptyline HCl (Amitriptyline Hcl 50 Mg Tablet) 150 mg PO BEDTIME [facility] Last Admin: 08/01/21 21:58 Dose: 150 mg Documented by: Amitriptyline HCl (Amitriptyline Hcl 50 Mg Tablet) 50 mg PO DAILY [facility] Last Admin: 08/02/21 09:35 Dose: 50 mg Documented by: Ascorbic Acid (Ascorbic Acid 500 Mg Tablet) 500 mg PO DAILY [facility] Last Admin: 08/02/21 09:35 Dose: 500 mg Documented by: Atorvastatin Calcium (Atorvastatin Calcium 80 Mg Tablet) 80 mg PO DAILY [facility] Last Admin: 08/02/21 09:35 Dose: 80 mg Documented by: Bismuth Subsalicylate (Bismuth Subsalicylate Liquid 524 Mg/30 Ml Oral.Susp) 524 mg PO QID PRN PRN Reason: Indigestion Last Admin: 07/18/21 15:06 Dose: 524 mg Documented by: Dextrose (Dextrose 50 % 25 Gm/50 Ml Syringe) 25 gm IVPUSH Q15M PRN; Protocol PRN Reason: per Hypoglycemia Standing Ord. Docusate Sodium (Docusate Sodium 100 Mg Capsule) 100 mg PO DAILY PRN PRN Reason: Constipation Glucose (Glucose Gel 15 Gm Gel..Gram.) 15 gm PO Q15M PRN; Protocol PRN Reason: per Hypoglycemia Standing Ord. Hydralazine HCl (Hydralazine Hcl 25 Mg Tablet) 25 mg PO TID [facility]; Protocol Last Admin: 08/02/21 09:36 Dose: Not Given Documented by: Insulin Human Lispro (Insulin Lispro 100 Unit/Ml 3 Ml Vial) 0 unit SUBCUT QIDACHS [facility]; Protocol Last Admin: 08/02/21 09:34 Dose: 2 unit Documented by: Isosorbide Mononitrate (Isosorbide Mononitrate 60 Mg Tab.Er.24h) 60 mg PO DAILY [facility]; Protocol Last Admin: 08/01/21 08:06 Dose: 60 mg Documented by: Lactic Acid (Ammonium Lactate 12 % Cream 140 Gm Tube) 1 appl TOPICAL DAILY [facility]; Protocol Last Admin: 08/02/21 09:36 Dose: 1 appl Documented by: Metolazone (Metolazone 5 Mg Tablet) 5 mg PO DAILY [facility] Last Admin: 08/02/21 09:35 Dose: 5 mg Documented by: Metoprolol Succinate (Metoprolol Succinate Er 25 Mg Tab.Er.24h) 25 mg PO DAILY [facility]; Protocol Last Admin: 08/02/21 09:35 Dose: 25 mg Documented by: Omeprazole (Omeprazole 40 Mg Capsule.) 40 mg PO BID@0630,1630 [facility] Last Admin: 08/02/21 05:38 Dose: 40 mg Documented by: Ondansetron HCl (Ondansetron Hcl 4 Mg/2 Ml Vial) 4 mg IVPUSH Q8H PRN PRN Reason: Nausea and Vomiting Last Admin: 07/19/21 06:16 Dose: 4 mg Documented by: Oxycodone HCl (Oxycodone Hcl Immed Release 5 Mg Tablet) 5 mg PO Q4H PRN PRN Reason: Pain, Severe (Pain Scale 7-10) Last Admin: 08/01/21 08:13 Dose: 5 mg Documented by: Pharmacy Consult (Consult Rx Perform Med Rec) 1 each MISCELLANE ONCE PRN PRN Reason: Consult order Potassium Chloride (Potassium Chloride Er 20 Meq Tab.Er.Prt) 60 meq PO BIDPC [facility] Last Admin: 08/02/21 09:34 Dose: 60 meq Documented by: Potassium Chloride (Potassium Chloride Er 20 Meq Tab.Er.Prt) 40 meq PO DAILY@1230 [facility] Last Admin: 08/01/21 12:01 Dose: 40 meq Documented by: Sodium Chloride (0.9 % Sodium Chloride Flush 3 Ml Syringe) 3 ml IVFLUSH QSHIFT [facility] Last Admin: 08/02/21 09:34 Dose: 3 ml Documented by: Torsemide (Torsemide 20 Mg Tablet) 100 mg PO BID [facility]; Protocol Last Admin: 08/02/21 09:35 Dose: 100 mg Documented by: Warfarin Sodium (Warfarin Sodium 2 Mg Tablet) 2 mg PO DAILY@1800 [facility] Stop: 08/03/21 06:00 Last Admin: 07/31/21 17:16 Dose: 2 mg Documented by: Time Spent With Patient Time: Total time spent is greater than 50% in coordination of care (as documented) at patient's floor/unit and/or counseling patient: Time with patient: less than 15 minutes Progress Note: Quality Stroke Does the patient have a stroke diagnosis?: No Procedures Date of Service Date of Service: 08/02/21
[2021-08-02] MEDS: Isosorbide Mononitrate 60 MG TAB.ER.24H PO (10:00)
[2021-08-02 11:18] LABS: Glucose, Whole Blood 139 mg/dL (60-115)
[2021-08-02] MEDS: Potassium Chloride ER 20 MEQ TAB.ER.PRT 40 MEQ PO (11:57)
[2021-08-02] MEDS: oxyCODONE HCl Immed Release 5 MG TABLET PO ×2 (11:58→21:09)
--- NOTE | 2021-08-02 14:59 | HO.PM.IMPN ---
Subjective Subjective Date of Service: 08/02/21 Interval History: the patient was seen and evaluated this morning still have scrotal swelling Still having hematuria, blood leaking around the Camilo Drop in hemoglobin over the course of hospital stay No reported other overnight events. Systemic review: No fever, chills but has generalized weakness No chest pain, palpitation No shortness of breath or coughing No abdominal pain, nausea or vomiting Hematuria No any rash or wounds Physical Exam Vital Signs: Vital Signs: Last Vital Signs Temp 97.5 F 08/02/21 10:48 Pulse 79 08/02/21 10:48 Resp 18 08/02/21 10:48 BP 117/67 08/02/21 10:48 Pulse Ox 97 08/02/21 10:48 Oxygen Flow Rate 3 07/22/21 04:00 BMI result Body Mass Index 39.2 Const: Other: Gen:? Awake, alert in no acute distress Neck: supple, no increased JVD Lungs: Coarse breath sound, no wheeze, no crackles Heart: irregularly irregular, no murmurs Abd: soft, non-tender, non-distended, obese :? significant scrotal swelling , dry blood around Camilo catheter, Camilo with bloody urine Ext: venous stasis hyperpigmentation to shins, significant dependent edema both thighs and back Skin: warm/well-perfused Neuro: alert and oriented x3, no focal findings Psych: appropriate affect Objective Data Active Medications Acetaminophen (Acetaminophen 325 Mg Tablet) 650 mg PO Q6H PRN PRN Reason: Pain, Mild (Pain Scale 1-3) Last Admin: 08/01/21 15:10 Dose: 650 mg Documented by: RYAN Al Hydroxide/Mg Hydroxide (Magnesium Hydrox/Alum Hydrox 30 Ml Oral.Susp) 30 ml PO Q4H PRN PRN Reason: heartbirun Last Admin: 07/19/21 00:23 Dose: 30 ml Documented by: GIL Amitriptyline HCl (Amitriptyline Hcl 50 Mg Tablet) 150 mg PO BEDTIME [facility] Last Admin: 08/01/21 21:58 Dose: 150 mg Documented by: ABIGAIL Amitriptyline HCl (Amitriptyline Hcl 50 Mg Tablet) 50 mg PO DAILY [facility] Last Admin: 08/02/21 09:35 Dose: 50 mg Documented by: BILL Ascorbic Acid (Ascorbic Acid 500 Mg Tablet) 500 mg PO DAILY [facility] Last Admin: 08/02/21 09:35 Dose: 500 mg Documented by: BILL Atorvastatin Calcium (Atorvastatin Calcium 80 Mg Tablet) 80 mg PO DAILY [facility] Last Admin: 08/02/21 09:35 Dose: 80 mg Documented by: BILL Bismuth Subsalicylate (Bismuth Subsalicylate Liquid 524 Mg/30 Ml Oral.Susp) 524 mg PO QID PRN PRN Reason: Indigestion Last Admin: 07/18/21 15:06 Dose: 524 mg Documented by: LORE Dextrose (Dextrose 50 % 25 Gm/50 Ml Syringe) 25 gm IVPUSH Q15M PRN; Protocol PRN Reason: per Hypoglycemia Standing Ord. Docusate Sodium (Docusate Sodium 100 Mg Capsule) 100 mg PO DAILY PRN PRN Reason: Constipation Glucose (Glucose Gel 15 Gm Gel..Gram.) 15 gm PO Q15M PRN; Protocol PRN Reason: per Hypoglycemia Standing Ord. Hydralazine HCl (Hydralazine Hcl 25 Mg Tablet) 25 mg PO TID [facility]; Protocol Last Admin: 08/02/21 09:36 Dose: Not Given Documented by: BILL Non-Admin Reason: Decreased Blood Pressure Insulin Human Lispro (Insulin Lispro 100 Unit/Ml 3 Ml Vial) 0 unit SUBCUT QIDACHS [facility]; Protocol Last Admin: 08/02/21 11:57 Dose: 2 unit Documented by: BILL Isosorbide Mononitrate (Isosorbide Mononitrate 60 Mg Tab.Er.24h) 60 mg PO DAILY [facility]; Protocol Last Admin: 08/02/21 10:00 Dose: 60 mg Documented by: BILL Lactic Acid (Ammonium Lactate 12 % Cream 140 Gm Tube) 1 appl TOPICAL DAILY [facility]; Protocol Last Admin: 08/02/21 09:36 Dose: 1 appl Documented by: BILL Metolazone (Metolazone 5 Mg Tablet) 5 mg PO DAILY [facility] Last Admin: 08/02/21 09:35 Dose: 5 mg Documented by: BILL Metoprolol Succinate (Metoprolol Succinate Er 25 Mg Tab.Er.24h) 25 mg PO DAILY [facility]; Protocol Last Admin: 08/02/21 09:35 Dose: 25 mg Documented by: BILL Omeprazole (Omeprazole 40 Mg Capsule.) 40 mg PO BID@0630,1630 [facility] Last Admin: 08/02/21 05:38 Dose: 40 mg Documented by: ABIGAIL Ondansetron HCl (Ondansetron Hcl 4 Mg/2 Ml Vial) 4 mg IVPUSH Q8H PRN PRN Reason: Nausea and Vomiting Last Admin: 07/19/21 06:16 Dose: 4 mg Documented by: GIL Oxycodone HCl (Oxycodone Hcl Immed Release 5 Mg Tablet) 5 mg PO Q4H PRN PRN Reason: Pain, Severe (Pain Scale 7-10) Last Admin: 08/02/21 11:58 Dose: 5 mg Documented by: BILL Pharmacy Consult (Consult Rx Perform Med Rec) 1 each MISCELLANE ONCE PRN PRN Reason: Consult order Potassium Chloride (Potassium Chloride Er 20 Meq Tab.Er.Prt) 60 meq PO BIDPC [facility] Last Admin: 08/02/21 09:34 Dose: 60 meq Documented by: BILL Potassium Chloride (Potassium Chloride Er 20 Meq Tab.Er.Prt) 40 meq PO DAILY@1230 [facility] Last Admin: 08/02/21 11:57 Dose: 40 meq Documented by: BILL Sodium Chloride (0.9 % Sodium Chloride Flush 3 Ml Syringe) 3 ml IVFLUSH QSHIFT [facility] Last Admin: 08/02/21 09:34 Dose: 3 ml Documented by: BILL Torsemide (Torsemide 20 Mg Tablet) 100 mg PO BID [facility]; Protocol Last Admin: 08/02/21 09:35 Dose: 100 mg Documented by: BILL Warfarin Sodium (Warfarin Sodium 2 Mg Tablet) 2 mg PO DAILY@1800 [facility] Stop: 08/03/21 06:00 Last Admin: 07/31/21 17:16 Dose: 2 mg Documented by: LAZARUS Labs CBC & Chem 7: 07/27/21 05:30 08/02/21 06:20 Labs: Laboratory Results - last 24 hr 08/01/21 08/01/21 08/02/21 16:06 19:51 06:20 PT 28.4 H INR 2.5 H Anion Gap Estim Creat Clear Calc Estimated GFR POC Glucose 221 H 216 H Random Glucose Calcium 0208/02/21 08/02/21 06:20 08:08 10:50 PT INR Anion Gap 11 L Estim Creat Clear Calc 44.5 Estimated GFR 27 POC Glucose 143 H 139 H Random Glucose 137 H Calcium 8.0 L Assessment and Plan (1) Acute blood loss anemia (ABLA): Status: Acute (2) Pulmonary hypertension: Status: Acute (3) Permanent atrial fibrillation: Status: Acute (4) Acute on chronic diastolic HF (heart failure): Status: Acute (5) Gross hematuria: Status: Acute Plan 61yo M with HTN, HFpEF with cardioMEMS device in place, HLD, CAD, DM2, DARLENE, severe pHTN, AF on warfarin, CKD3-4, hx CVA, polycythemic vera, chronic hypoxic respiratory failure on 2L recent admission to [facility] for CHF exacerbation presenting with nausea/vomiting, dizziness # acute/chronic HFpEF diuresed almost 25L druing this hospital stay TTE 07/07/20 LVEF 50%, no RWMA, mild , mod pulm HTN Dc Bumex drip Continue metolazone 5 mg daily Continue Torsemide home dose follow BMP and BNP # Acute blood loss anemia # 2/2 hematuria/scrotal swelling Hemoglobin dropped to almost 11 from baseline of 14, no transfusion needed at this point Urine bloody tinged , some bleeding around Camilo ,continue Camilo, Keep scrotum elevated hematuria was likely due to traumatic Camilo placement while on anticoagulation; hold off on starting clopdigrel, with keep INR around 2-2.5 Urology recommended to monitor for now only # permanent AF INR 2.5 continue metoprolol; d/c digoxin due to CKD INR 2 today, Hold Coumadin for now, plan to be restarted by August 03 keep INR 2-2.5 # acute on CKD4 SCr mildly worsen, BUN remains elevated On torsemide, monitor BMP and consider holding worsens by tomorrow # acute pontine CVA Improved conitnue statin start clopidogrel to replace ASA once Camilo removed since persistent bleeding around Camilo seen by Neurology no additional workup recommended # hypoK resolved continue potassium 60 mg b.i.d. follow BMP while being diuresed # nausea/vomiting with 1 episode blood-streaked vomitus Brinda-Reyes tear.? has not recurred since admission s/p IV Protonix, now on oral PPI, repeat hematocrit is stable # chronic hypoxic respiratory failure on 2L at home # DM2 with hypyerglycemia, A1c 8.6 blood sugar stable, on correction-dose lispro.? on U-500 + Trulicity at home.? Continue diabetic diet and insulin sliding scale. # CAD episode of chest pain resolved, troponins flat, continue statin, metoprolol, Imdur # HTN stable blood pressure on metoprolol, low-dose hydralazine, Imdur and now on IV Bumex drip, (amlodipine discontinued) # morbid obesity outpt bariatrics evaluation can be considered # DARLENE continue CPAP at bedtime and during naps # VTE ppx on warfarin with INR 2 # dispo plan home with VNA Quality Stroke Does the patient have a stroke diagnosis?: No VTE Prior VTE?: No VTE Risk Level:: Medical - moderate - high VTE Device Contraindication: N/A - Device Ordered VTE Drug Contraindication: Treatment Not Indicated
[2021-08-02 16:37] LABS: Glucose, Whole Blood 188 mg/dL (60-115)
[2021-08-02 20:20] LABS: Glucose, Whole Blood 153 mg/dL (60-115)
[2021-08-02] MEDS: Amitriptyline HCl 50 MG TABLET 150 MG PO (21:10)
[2021-08-02] MEDS: hydrALAZINE HCl 25 MG TABLET PO (21:10)
[2021-08-03] VITALS (8 sets, daily range): BP systolic 110–124; BP diastolic 60–72; PULSE 58–74; RESP 17–20; TEMP 36–36.6; O2SAT 94–97
[2021-08-03] MEDS: oxyCODONE HCl Immed Release 5 MG TABLET PO ×2 (03:19→08:09)
--- NOTE | 2021-08-03 04:59 | PC.NURSE ---
Pt seen on bed at shift change alert and oriented, c/o groin and urinary meatus pain , mcknight cath intact and patent, prn Oxycodone 5 mg po given, verbalized good effect, slept after, O2 shifted to CPAP late at night and tolerated.
[2021-08-03] MEDS: Omeprazole 40 MG CAPSULE.DR PO ×2 (06:02→18:13)
[2021-08-03 06:09] LABS: Hematocrit 32.6 % (42.0-52.0); Hemoglobin 10.8 g/dl (14.0-18.0); Mean Corpuscular HGB Conc 33.1 g/dl (31.0-36.0); Mean Corpuscular Volume 87.6 fL (80.0-98.0); Mean Platelet Volume 9.6 fL (9.4-12.4); Platelet Count 263 X10*3/uL (160-400); Red Blood Count 3.72 X10*6/uL (4.60-5.80); Red Cell Distribution Width 16.4 % (11.0-16.0); White Blood Count 12.3 X10*3/uL (4.8-10.8)
[2021-08-03 06:14] LABS: INTERNATIONAL NORM RATIO 2.3 (0.9-1.1); Prothrombin Time 26.2 SEC (9.9-13.0)
[2021-08-03 06:27] LABS: Anion Gap 13 (12-20); Blood Urea Nitrogen 93 mg/dL (9-16); Calcium 8.1 mg/dL (8.4-10.2); Carbon Dioxide 31 mmol/L (22-29); Chloride 96 mmol/L (96-108); Creatinine Clr Calc Pharmacy 47.4; Estimated Glomerular Filt Rate 30; Glucose Random 145 mg/dL (60-115); Potassium 4.4 mmol/L (3.3-5.1); Sodium 136 mmol/L (135-145)
[2021-08-03 07:19] LABS: Glucose, Whole Blood 168 mg/dL (60-115)
[2021-08-03] MEDS: Torsemide 20 MG TABLET 100 MG PO ×2 (08:10→20:55)
[2021-08-03] MEDS: Isosorbide Mononitrate 60 MG TAB.ER.24H PO (08:10)
[2021-08-03] MEDS: Insulin Lispro 100 UNIT/ML 3 ML VIAL SUBCUT ×4 (08:10→20:54)
[2021-08-03] MEDS: hydrALAZINE HCl 25 MG TABLET PO ×3 (08:10→20:54)
[2021-08-03] MEDS: Metoprolol Succinate ER 25 MG TAB.ER.24H PO (08:10)
[2021-08-03] MEDS: Atorvastatin Calcium 80 MG TABLET PO (08:11)
[2021-08-03] MEDS: 0.9 % Sodium Chloride Flush 3 ML SYRINGE IVFLUSH ×3 (08:11→20:55)
[2021-08-03] MEDS: Amitriptyline HCl 50 MG TABLET PO (08:11)
[2021-08-03] MEDS: Ammonium Lactate 12 % Cream 140 GM TUBE 1 APPL TOPICAL (08:11)
[2021-08-03] MEDS: Ascorbic Acid 500 MG TABLET PO (08:11)
[2021-08-03] MEDS: metOLazone 5 MG TABLET PO (08:11)
--- NOTE | 2021-08-03 10:06 | PM.PNCARD ---
Subjective Subjective Date of Service: 08/03/21 Principal diagnosis: Dizziness, CVA, afib, chronic diastolic HF Interval history: States that he feels OK. Review of Systems Review of Systems Yes all other systems are reviewed and are negative Cardiovascular: Reports as per HPI, Reports no additional cardiovascular complaints, Denies acrocyanosis, Denies cool extremities, Denies painful fingertips, Denies chest pain, Denies chest pain at rest, Denies diaphoresis, Denies syncope, Denies irregular heart rhythm, Denies claudication, Denies leg edema, Denies lightheadedness, Denies palpitations and Denies dyspnea Respiratory: Denies dyspnea Denies syncope Endocrine: Denies palpitations Physical Exam Vital Signs: Last Vital Signs Temp 97.3 F 08/03/21 07:45 Pulse 65 08/03/21 09:00 Resp 20 08/03/21 07:45 BP 113/61 08/03/21 09:00 Pulse Ox 94 08/03/21 09:00 Oxygen Flow Rate 3 07/22/21 04:00 BMI result Body Mass Index 39.2 Const General: no acute distress HENMT Other: Unremarkable Neck Neck: Yes normal visual inspection Chest Chest palpation & inspection: normal inspection of the chest Resp Auscultation: no crackles and no wheezes Cardio Palpation: normal PMI Heart sounds: S1 normal heart sound present, S2 normal heart sound present, no gallops, Murmur heart sound present systolic III/ and no rubs GI Palpation (GI): Soft to palpation Back/Spine/Pelvis Other: unremarkable Skin Lesions: other Neuro Cranial nerves: Yes Other cranial nerve findings present Extrem Other: Chronic changes with only minimal edema. General: Yes other Psych Mental Status: other Objective Labs and Meds Result diagrams: 08/03/21 05:26 08/03/21 05:26 Lab results: Laboratory Results - last 24 hr 08/02/21 08/02/21 08/02/21 10:50 15:41 19:44 WBC RBC Hgb Hct MCV MCH MCHC RDW Plt Count MPV Absolute Nucleated RBC Nucleated RBC % (auto) PT INR Sodium Potassium Chloride Carbon Dioxide Anion Gap BUN Creatinine Estim Creat Clear Calc Estimated GFR POC Glucose 139 H 188 H 153 H Random Glucose Calcium 08/03/21 08/03/21 08/03/21 05:26 05:26 05:26 WBC 12.3 H RBC 3.72 L Hgb 10.8 L Hct 32.6 L MCV 87.6 MCH 29.0 MCHC 33.1 RDW 16.4 H Plt Count 263 MPV 9.6 Absolute Nucleated RBC 0.000 Nucleated RBC % (auto) 0.0 PT 26.2 H INR 2.3 H Sodium 136 Potassium 4.4 Chloride 96 Carbon Dioxide 31 H Anion Gap 13 BUN 93 H Creatinine 2.28 H Estim Creat Clear Calc 47.4 Estimated GFR 30 POC Glucose Random Glucose 145 H Calcium 8.1 L 08/03/21 07:15 WBC RBC Hgb Hct MCV MCH MCHC RDW Plt Count MPV Absolute Nucleated RBC Nucleated RBC % (auto) PT INR Sodium Potassium Chloride Carbon Dioxide Anion Gap BUN Creatinine Estim Creat Clear Calc Estimated GFR POC Glucose 168 H Random Glucose Calcium Progress Note: A&P Assessment and plan (1) Acute on chronic diastolic HF (heart failure): Status: Acute (2) Permanent atrial fibrillation: Status: Acute (3) Pulmonary hypertension: Status: Acute Plan Echocardiogram from last year-LVEF 50%. Right ventricle cavity dilated with impaired function. Moderately dilated left atrium. No significant mitral regurgitation. Mild tricuspid regurgitation. RVSP of 64 mm Hg, RA pressure of 15 mm Hg. Mild . On telemetry, he is in atrial fibrillation with controlled rate. Based on input output chart, he is almost 26 L negative since the time of admission. Creatinine is 2.28. BUN is 93. Last cardiac BNP is 357. Admission cardiac BNP was 487. Overall, clinically seems fairly euvolemic. Off Bumex. On oral Torsemide/metolazone. Renal function will need to be followed. Fall Risk Details Current Medications: Current Medications Acetaminophen (Acetaminophen 325 Mg Tablet) 650 mg PO Q6H PRN PRN Reason: Pain, Mild (Pain Scale 1-3) Last Admin: 08/01/21 15:10 Dose: 650 mg Documented by: Al Hydroxide/Mg Hydroxide (Magnesium Hydrox/Alum Hydrox 30 Ml Oral.Susp) 30 ml PO Q4H PRN PRN Reason: heartbirun Last Admin: 07/19/21 00:23 Dose: 30 ml Documented by: Amitriptyline HCl (Amitriptyline Hcl 50 Mg Tablet) 150 mg PO BEDTIME [facility] Last Admin: 08/02/21 21:10 Dose: 150 mg Documented by: Amitriptyline HCl (Amitriptyline Hcl 50 Mg Tablet) 50 mg PO DAILY [facility] Last Admin: 08/03/21 08:11 Dose: 50 mg Documented by: Ascorbic Acid (Ascorbic Acid 500 Mg Tablet) 500 mg PO DAILY [facility] Last Admin: 08/03/21 08:11 Dose: 500 mg Documented by: Atorvastatin Calcium (Atorvastatin Calcium 80 Mg Tablet) 80 mg PO DAILY [facility] Last Admin: 08/03/21 08:11 Dose: 80 mg Documented by: Bismuth Subsalicylate (Bismuth Subsalicylate Liquid 524 Mg/30 Ml Oral.Susp) 524 mg PO QID PRN PRN Reason: Indigestion Last Admin: 07/18/21 15:06 Dose: 524 mg Documented by: Dextrose (Dextrose 50 % 25 Gm/50 Ml Syringe) 25 gm IVPUSH Q15M PRN; Protocol PRN Reason: per Hypoglycemia Standing Ord. Docusate Sodium (Docusate Sodium 100 Mg Capsule) 100 mg PO DAILY PRN PRN Reason: Constipation Glucose (Glucose Gel 15 Gm Gel..Gram.) 15 gm PO Q15M PRN; Protocol PRN Reason: per Hypoglycemia Standing Ord. Hydralazine HCl (Hydralazine Hcl 25 Mg Tablet) 25 mg PO TID [facility]; Protocol Last Admin: 08/03/21 08:10 Dose: 25 mg Documented by: Insulin Human Lispro (Insulin Lispro 100 Unit/Ml 3 Ml Vial) 0 unit SUBCUT QIDACHS [facility]; Protocol Last Admin: 08/03/21 08:10 Dose: 2 unit Documented by: Isosorbide Mononitrate (Isosorbide Mononitrate 60 Mg Tab.Er.24h) 60 mg PO DAILY [facility]; Protocol Last Admin: 08/03/21 08:10 Dose: 60 mg Documented by: Lactic Acid (Ammonium Lactate 12 % Cream 140 Gm Tube) 1 appl TOPICAL DAILY [facility]; Protocol Last Admin: 08/03/21 08:11 Dose: 1 appl Documented by: Metolazone (Metolazone 5 Mg Tablet) 5 mg PO DAILY [facility] Last Admin: 08/03/21 08:11 Dose: 5 mg Documented by: Metoprolol Succinate (Metoprolol Succinate Er 25 Mg Tab.Er.24h) 25 mg PO DAILY [facility]; Protocol Last Admin: 08/03/21 08:10 Dose: 25 mg Documented by: Omeprazole (Omeprazole 40 Mg Capsule.Dr) 40 mg PO BID@0630,1630 [facility] Last Admin: 08/03/21 06:02 Dose: 40 mg Documented by: Ondansetron HCl (Ondansetron Hcl 4 Mg/2 Ml Vial) 4 mg IVPUSH Q8H PRN PRN Reason: Nausea and Vomiting Last Admin: 07/19/21 06:16 Dose: 4 mg Documented by: Oxycodone HCl (Oxycodone Hcl Immed Release 5 Mg Tablet) 5 mg PO Q4H PRN PRN Reason: Pain, Severe (Pain Scale 7-10) Last Admin: 08/03/21 08:09 Dose: 5 mg Documented by: Pharmacy Consult (Consult Rx Perform Med Rec) 1 each MISCELLANE ONCE PRN PRN Reason: Consult order Potassium Chloride (Potassium Chloride Er 20 Meq Tab.Er.Prt) 40 meq PO DAILY@1230 [facility] Last Admin: 08/02/21 11:57 Dose: 40 meq Documented by: Sodium Chloride (0.9 % Sodium Chloride Flush 3 Ml Syringe) 3 ml IVFLUSH QSHIFT [facility] Last Admin: 08/03/21 08:11 Dose: 3 ml Documented by: Torsemide (Torsemide 20 Mg Tablet) 100 mg PO BID [facility]; Protocol Last Admin: 08/03/21 08:10 Dose: 100 mg Documented by: Warfarin Sodium (Warfarin Sodium 2.5 Mg Tablet) 2.5 mg PO MoTuWeThFrSa@1800 [facility] Warfarin Sodium (Warfarin Sodium 5 Mg Tablet) 5 mg PO Carrillo@1800 [facility] Time Spent With Patient Time: Total time spent is greater than 50% in coordination of care (as documented) at patient's floor/unit and/or counseling patient: Time with patient: less than 15 minutes Progress Note: Quality Stroke Does the patient have a stroke diagnosis?: No Procedures Date of Service Date of Service: 08/03/21
--- NOTE | 2021-08-03 10:54 | MHC.CLN ---
F/U APPEARS TO BE EATING WELL, 75-100%. BUN AND Cr CONTINUE ELEVATED WITH CKD STAGE 3. DIET=DIABETIC 2000 KCAL, 2 G SODIUM. STAGE II WOUND TO BILATERAL BUTTOCKS. WILL DECREASE GLUCERNA SUPPLEMENT FROM TID TO BID DUE TO GOOD INTAKE. CONTINUE TO FOLLOW LABS, INTAKE, AND WOUND.
--- NOTE | 2021-08-03 11:03 | P.PNIM_ITS ---
Subjective Subjective Date of Service: 08/03/21 Interval History: continues to have bleeding around urinary catheter anasarca improved Cardiovascular Cardiovascular: Reports no additional cardiovascular complaints Respiratory Respiratory: Reports no additional respiratory complaints Physical Exam Verdana 4l Vital Signs: Verdana 4d Verdana 4d Vital Signs: Verdana 4d Verdana 4Bd Last Vital Signs Verdana 4d Bread Panner New 4d Bread Panner New 4d Temp 97.3 F 08/03/21 07:45 Bread Panner New 4d Pulse 65 08/03/21 09:00 Bread Panner New 4d Resp 20 08/03/21 07:45 BP 113/61 08/03/21 09:00 Pulse Ox 94 08/03/21 09:00 Oxygen Flow Rate 3 07/22/21 04:00 BMI result Body Mass Index 39.2 General: AO X 3, no acute distress Resp: CTA bilateral, no accessory muscles used CVS: S1,S2,RRR, systolic murmur : blood around catheter, improved edema GI: soft, non tender, non distended Neuro: motor grossly intact, alert Psych: appropriate affect, appropriate insight Objective Data Active Medications Acetaminophen (Acetaminophen 325 Mg Tablet) 650 mg PO Q6H PRN PRN Reason: Pain, Mild (Pain Scale 1-3) Last Admin: 08/01/21 15:10 Dose: 650 mg Documented by: RYAN Al Hydroxide/Mg Hydroxide (Magnesium Hydrox/Alum Hydrox 30 Ml Oral.Susp) 30 ml PO Q4H PRN PRN Reason: heartbirun Last Admin: 07/19/21 00:23 Dose: 30 ml Documented by: NAUMOC Amitriptyline HCl (Amitriptyline Hcl 50 Mg Tablet) 150 mg PO BEDTIME [facility] Last Admin: 08/02/21 21:10 Dose: 150 mg Documented by: CASTILM Amitriptyline HCl (Amitriptyline Hcl 50 Mg Tablet) 50 mg PO DAILY [facility] Last Admin: 08/03/21 08:11 Dose: 50 mg Documented by: ROBERT Ascorbic Acid (Ascorbic Acid 500 Mg Tablet) 500 mg PO DAILY [facility] Last Admin: 08/03/21 08:11 Dose: 500 mg Documented by: ROBERT Atorvastatin Calcium (Atorvastatin Calcium 80 Mg Tablet) 80 mg PO DAILY [facility] Last Admin: 08/03/21 08:11 Dose: 80 mg Documented by: ROBERT Bismuth Subsalicylate (Bismuth Subsalicylate Liquid 524 Mg/30 Ml Oral.Susp) 524 mg PO QID PRN PRN Reason: Indigestion Last Admin: 07/18/21 15:06 Dose: 524 mg Documented by: LORE Dextrose (Dextrose 50 % 25 Gm/50 Ml Syringe) 25 gm IVPUSH Q15M PRN; Protocol PRN Reason: per Hypoglycemia Standing Ord. Docusate Sodium (Docusate Sodium 100 Mg Capsule) 100 mg PO DAILY PRN PRN Reason: Constipation Glucose (Glucose Gel 15 Gm Gel..Gram.) 15 gm PO Q15M PRN; Protocol PRN Reason: per Hypoglycemia Standing Ord. Hydralazine HCl (Hydralazine Hcl 25 Mg Tablet) 25 mg PO TID [facility]; Protocol Last Admin: 08/03/21 08:10 Dose: 25 mg Documented by: ROBERT Insulin Human Lispro (Insulin Lispro 100 Unit/Ml 3 Ml Vial) 0 unit SUBCUT QIDACHS [facility]; Protocol Last Admin: 08/03/21 08:10 Dose: 2 unit Documented by: ROBERT Isosorbide Mononitrate (Isosorbide Mononitrate 60 Mg Tab.Er.24h) 60 mg PO DAILY [facility]; Protocol Last Admin: 08/03/21 08:10 Dose: 60 mg Documented by: ROBERT Lactic Acid (Ammonium Lactate 12 % Cream 140 Gm Tube) 1 appl TOPICAL DAILY [facility]; Protocol Last Admin: 08/03/21 08:11 Dose: 1 appl Documented by: ROBERT Metolazone (Metolazone 5 Mg Tablet) 5 mg PO DAILY [facility] Last Admin: 08/03/21 08:11 Dose: 5 mg Documented by: ROBERT Metoprolol Succinate (Metoprolol Succinate Er 25 Mg Tab.Er.24h) 25 mg PO DAILY [facility]; Protocol Last Admin: 08/03/21 08:10 Dose: 25 mg Documented by: ROBERT Omeprazole (Omeprazole 40 Mg Capsule.Dr) 40 mg PO BID@0630,1630 [facility] Last Admin: 08/03/21 06:02 Dose: 40 mg Documented by: CASTILMichelle Ondansetron HCl (Ondansetron Hcl 4 Mg/2 Ml Vial) 4 mg IVPUSH Q8H PRN PRN Reason: Nausea and Vomiting Last Admin: 07/19/21 06:16 Dose: 4 mg Documented by: GIL Oxycodone HCl (Oxycodone Hcl Immed Release 5 Mg Tablet) 5 mg PO Q4H PRN PRN Reason: Pain, Severe (Pain Scale 7-10) Last Admin: 08/03/21 08:09 Dose: 5 mg Documented by: ROBERT Pharmacy Consult (Consult Rx Perform Med Rec) 1 each MISCELLANE ONCE PRN PRN Reason: Consult order Potassium Chloride (Potassium Chloride Er 20 Meq Tab.Er.Prt) 40 meq PO DAILY@1230 [facility] Last Admin: 08/02/21 11:57 Dose: 40 meq Documented by: BILL Sodium Chloride (0.9 % Sodium Chloride Flush 3 Ml Syringe) 3 ml IVFLUSH QSHIFT [facility] Last Admin: 08/03/21 08:11 Dose: 3 ml Documented by: ROBERT Torsemide (Torsemide 20 Mg Tablet) 100 mg PO BID [facility]; Protocol Last Admin: 08/03/21 08:10 Dose: 100 mg Documented by: ROBERT Warfarin Sodium (Warfarin Sodium 2.5 Mg Tablet) 2.5 mg PO MoTuWeThFrSa@1800 [facility] Warfarin Sodium (Warfarin Sodium 5 Mg Tablet) 5 mg PO Carrillo@1800 [facility] Labs CBC & Chem 7: 08/03/21 05:26 08/03/21 05:26 Labs: Laboratory Results - last 24 hr 08/02/21 08/02/21 08/02/21 10:50 15:41 19:44 MCV MCH MCHC RDW Plt Count MPV Absolute Nucleated RBC Nucleated RBC % (auto) PT INR Anion Gap Estim Creat Clear Calc Estimated GFR POC Glucose 139 H 188 H 153 H Random Glucose Calcium 08/03/21 08/03/21 08/03/21 05:26 05:26 05:26 MCV 87.6 MCH 29.0 MCHC 33.1 RDW 16.4 H Plt Count 263 MPV 9.6 Absolute Nucleated RBC 0.000 Nucleated RBC % (auto) 0.0 PT 26.2 H INR 2.3 H Anion Gap 13 Estim Creat Clear Calc 47.4 Estimated GFR 30 POC Glucose Random Glucose 145 H Calcium 8.1 L 08/03/21 07:15 MCV MCH MCHC RDW Plt Count MPV Absolute Nucleated RBC Nucleated RBC % (auto) PT INR Anion Gap Estim Creat Clear Calc Estimated GFR POC Glucose 168 H Random Glucose Calcium Assessment and Plan (1) Acute blood loss anemia (ABLA): Status: Acute (2) Pulmonary hypertension: Status: Acute (3) Permanent atrial fibrillation: Status: Acute (4) Acute on chronic diastolic HF (heart failure): Status: Acute (5) Gross hematuria: Status: Acute Plan 61yo M with HTN, HFpEF with cardioMEMS device in place, HLD, CAD, DM2, DARLENE, severe pHTN, AF on warfarin, CKD3-4, hx CVA, polycythemic vera, chronic hypoxic respiratory failure on 2L recent admission to [facility] for CHF exacerbation presenting with nausea/vomiting, dizziness acute on chronic HFpEF diuresed almost 25L druing this hospital stay TTE 07/07/20 LVEF 50%, no RWMA, mild , mod pulm HTN off bumex drip Continue metolazone 5 mg daily Continue Torsemide home dose follow BMP and BNP, will decrease potassium to 40meq daily Acute blood loss anemia 2/2 hematuria/scrotal swelling Hemoglobin dropped to almost 11 from baseline of 14, no transfusion needed at this point Urine bloody tinged , some bleeding around Camilo ,continue Camilo, Keep scrotum elevated hematuria was likely due to traumatic Camilo placement while on anticoagulation; hold off on starting clopdigrel, with keep INR around 2-2.5 Urology recommended to monitor for now only permanent AF INR 2.5 continue metoprolol; d/monetz digoxin due to CKD, Coumadin keep INR 2-2.5 CKD4 acute pontine CVA Improved conitnue statin coumadin hypoK resolved monitor nausea/vomiting with 1 episode blood-streaked vomitus Brinda-Reyes tear.? has not recurred since admission s/p IV Protonix, now on oral PPI, repeat hematocrit is stable chronic hypoxic respiratory failure on 2L at home DM2 with hypyerglycemia, A1c 8.6 blood sugar stable, on correction-dose lispro.? on U-500 + Trulicity at home.? Continue diabetic diet and insulin sliding scale. CAD episode of chest pain resolved, troponins flat, continue statin, metoprolol, Imdur HTN stable blood pressure on metoprolol, low-dose hydralazine, Imdur, (amlodipine discontinued) morbid obesity outpt bariatrics evaluation can be considered DARLENE continue CPAP at bedtime and during naps VTE ppx on warfarin with INR 2 dispo plan home with VNA Quality Stroke Does the patient have a stroke diagnosis?: No VTE Prior VTE?: No VTE Risk Level:: Medical - moderate - high VTE Device Contraindication: N/A - Device Ordered VTE Drug Contraindication: Treatment Not Indicated
[2021-08-03 11:56] LABS: Glucose, Whole Blood 154 mg/dL (60-115)
[2021-08-03] MEDS: Potassium Chloride ER 20 MEQ TAB.ER.PRT 40 MEQ PO (12:12)
--- NOTE | 2021-08-03 15:01 | MHC.CM.PN ---
PER MULTIDISCIPLINARY ROUNDS PT CONT'S TO BLEED AROUND CATHETER, NO PLAN FOR D/C TODAY, CM WILL CONT TO FOLLOW D/C NEEDS. DCP REMAINS HOME W/RESUMP OF [facility] AND NEW [facility], [facility] FOR TRANSPORT.
[2021-08-03 16:29] LABS: Glucose, Whole Blood 154 mg/dL (60-115)
[2021-08-03] MEDS: Warfarin Sodium 2.5 MG TABLET PO (18:13)
[2021-08-03 19:56] LABS: Glucose, Whole Blood 138 mg/dL (60-115)
[2021-08-03] MEDS: Amitriptyline HCl 50 MG TABLET 150 MG PO (20:54)
[2021-08-04] VITALS (7 sets, daily range): BP systolic 105–120; BP diastolic 56–75; PULSE 59–77; RESP 12–20; TEMP 36.3–36.6; O2SAT 91–98
[2021-08-04] MEDS: oxyCODONE HCl Immed Release 5 MG TABLET PO ×3 (00:37→16:06)
[2021-08-04] MEDS: Omeprazole 40 MG CAPSULE.DR PO ×2 (05:33→16:06)
[2021-08-04 06:29] LABS: Hematocrit 32.3 % (42.0-52.0); Hemoglobin 10.5 g/dl (14.0-18.0); Mean Corpuscular HGB Conc 32.5 g/dl (31.0-36.0); Mean Corpuscular Hemoglobin 28.2 pg (27.0-33.0); Mean Corpuscular Volume 86.8 fL (80.0-98.0); Mean Platelet Volume 9.8 fL (9.4-12.4); Platelet Count 260 X10*3/uL (160-400); Red Blood Count 3.72 X10*6/uL (4.60-5.80); Red Cell Distribution Width 16.3 % (11.0-16.0); White Blood Count 10.1 X10*3/uL (4.8-10.8)
[2021-08-04 06:32] LABS: Prothrombin Time 23.6 SEC (9.9-13.0)
[2021-08-04 06:47] LABS: Anion Gap 14 (12-20); Blood Urea Nitrogen 98 mg/dL (9-16); Calcium 8.1 mg/dL (8.4-10.2); Carbon Dioxide 33 mmol/L (22-29); Chloride 93 mmol/L (96-108); Creatinine Clr Calc Pharmacy 46.6; Estimated Glomerular Filt Rate 29; Glucose Fasting 120 mg/dL (60-99); Potassium 3.8 mmol/L (3.3-5.1); Sodium 136 mmol/L (135-145)
[2021-08-04 07:22] LABS: Glucose, Whole Blood 132 mg/dL (60-115)
[2021-08-04] MEDS: hydrALAZINE HCl 25 MG TABLET PO ×2 (09:07→13:47)
[2021-08-04] MEDS: Isosorbide Mononitrate 60 MG TAB.ER.24H PO (09:07)
[2021-08-04] MEDS: metOLazone 5 MG TABLET PO (09:07)
[2021-08-04] MEDS: Amitriptyline HCl 50 MG TABLET PO (09:07)
[2021-08-04] MEDS: Metoprolol Succinate ER 25 MG TAB.ER.24H PO (09:07)
[2021-08-04] MEDS: Ascorbic Acid 500 MG TABLET PO (09:07)
[2021-08-04] MEDS: Torsemide 20 MG TABLET 100 MG PO (09:08)
[2021-08-04] MEDS: Insulin Lispro 100 UNIT/ML 3 ML VIAL SUBCUT ×2 (09:08→20:19)
[2021-08-04] MEDS: Atorvastatin Calcium 80 MG TABLET PO (09:08)
[2021-08-04] MEDS: 0.9 % Sodium Chloride Flush 3 ML SYRINGE IVFLUSH ×3 (09:08→20:19)
[2021-08-04] MEDS: Ammonium Lactate 12 % Cream 140 GM TUBE 1 APPL TOPICAL (09:09)
--- NOTE | 2021-08-04 09:35 | P.PNIM_ITS ---
Subjective Subjective Date of Service: 08/04/21 Interval History: continues to have bleeding around urinary catheter anasarca improved Cardiovascular Cardiovascular: Reports no additional cardiovascular complaints Respiratory Respiratory: Reports no additional respiratory complaints Physical Exam Verdana 4l Vital Signs: Verdana 4d Verdana 4d Vital Signs: Verdana 4d Verdana 4Bd Last Vital Signs Verdana 4d Biological Aide New 4d Biological Aide New 4d Temp 98 F 08/04/21 07:03 Biological Aide New 4d Pulse 77 08/04/21 07:03 Biological Aide New 4d Resp 20 08/04/21 07:03 BP 114/56 L 08/04/21 07:03 Pulse Ox 91 L 08/04/21 07:03 Oxygen Flow Rate 3 07/22/21 04:00 BMI result Body Mass Index 39.2 General: AO X 3, no acute distress Resp:? CTA bilateral, no accessory muscles used CVS: S1,S2,RRR, systolic murmur : blood around catheter, improved edema GI: soft, non tender, non distended Neuro:? motor grossly intact, alert Psych: appropriate affect, appropriate insight? Objective Data Active Medications Acetaminophen (Acetaminophen 325 Mg Tablet) 650 mg PO Q6H PRN PRN Reason: Pain, Mild (Pain Scale 1-3) Last Admin: 08/01/21 15:10 Dose: 650 mg Documented by: RYAN Al Hydroxide/Mg Hydroxide (Magnesium Hydrox/Alum Hydrox 30 Ml Oral.Susp) 30 ml PO Q4H PRN PRN Reason: heartbirun Last Admin: 07/19/21 00:23 Dose: 30 ml Documented by: GIL Amitriptyline HCl (Amitriptyline Hcl 50 Mg Tablet) 150 mg PO BEDTIME [facility] Last Admin: 08/03/21 20:54 Dose: 150 mg Documented by: CASTILMichelle Amitriptyline HCl (Amitriptyline Hcl 50 Mg Tablet) 50 mg PO DAILY [facility] Last Admin: 08/04/21 09:07 Dose: 50 mg Documented by: LIN Ascorbic Acid (Ascorbic Acid 500 Mg Tablet) 500 mg PO DAILY [facility] Last Admin: 08/04/21 09:07 Dose: 500 mg Documented by: LIN Atorvastatin Calcium (Atorvastatin Calcium 80 Mg Tablet) 80 mg PO DAILY [facility] Last Admin: 08/04/21 09:08 Dose: 80 mg Documented by: LIN Bismuth Subsalicylate (Bismuth Subsalicylate Liquid 524 Mg/30 Ml Oral.Susp) 524 mg PO QID PRN PRN Reason: Indigestion Last Admin: 07/18/21 15:06 Dose: 524 mg Documented by: LORE Dextrose (Dextrose 50 % 25 Gm/50 Ml Syringe) 25 gm IVPUSH Q15M PRN; Protocol PRN Reason: per Hypoglycemia Standing Ord. Docusate Sodium (Docusate Sodium 100 Mg Capsule) 100 mg PO DAILY PRN PRN Reason: Constipation Glucose (Glucose Gel 15 Gm Gel..Gram.) 15 gm PO Q15M PRN; Protocol PRN Reason: per Hypoglycemia Standing Ord. Hydralazine HCl (Hydralazine Hcl 25 Mg Tablet) 25 mg PO TID [facility]; Protocol Last Admin: 08/04/21 09:07 Dose: 25 mg Documented by: LIN Insulin Human Lispro (Insulin Lispro 100 Unit/Ml 3 Ml Vial) 0 unit SUBCUT QIDACHS [facility]; Protocol Last Admin: 08/04/21 09:08 Dose: 2 unit Documented by: LIN Isosorbide Mononitrate (Isosorbide Mononitrate 60 Mg Tab.Er.24h) 60 mg PO DAILY [facility]; Protocol Last Admin: 08/04/21 09:07 Dose: 60 mg Documented by: LIN Lactic Acid (Ammonium Lactate 12 % Cream 140 Gm Tube) 1 appl TOPICAL DAILY [facility]; Protocol Last Admin: 08/04/21 09:09 Dose: 1 appl Documented by: LIN Metolazone (Metolazone 5 Mg Tablet) 5 mg PO DAILY [facility] Last Admin: 08/04/21 09:07 Dose: 5 mg Documented by: LIN Metoprolol Succinate (Metoprolol Succinate Er 25 Mg Tab.Er.24h) 25 mg PO DAILY [facility]; Protocol Last Admin: 08/04/21 09:07 Dose: 25 mg Documented by: LIN Omeprazole (Omeprazole 40 Mg Capsule.) 40 mg PO BID@0630,1630 [facility] Last Admin: 08/04/21 05:33 Dose: 40 mg Documented by: HARRISON Ondansetron HCl (Ondansetron Hcl 4 Mg/2 Ml Vial) 4 mg IVPUSH Q8H PRN PRN Reason: Nausea and Vomiting Last Admin: 07/19/21 06:16 Dose: 4 mg Documented by: GIL Oxycodone HCl (Oxycodone Hcl Immed Release 5 Mg Tablet) 5 mg PO Q4H PRN PRN Reason: Pain, Severe (Pain Scale 7-10) Last Admin: 08/04/21 09:11 Dose: 5 mg Documented by: LIN Pharmacy Consult (Consult Rx Perform Med Rec) 1 each MISCELLANE ONCE PRN PRN Reason: Consult order Potassium Chloride (Potassium Chloride Er 20 Meq Tab.Er.Prt) 40 meq PO DAILY@1230 [facility] Last Admin: 08/03/21 12:12 Dose: 40 meq Documented by: JAMIR Sodium Chloride (0.9 % Sodium Chloride Flush 3 Ml Syringe) 3 ml IVFLUSH QSHIFT [facility] Last Admin: 08/04/21 09:08 Dose: 3 ml Documented by: LIN Torsemide (Torsemide 20 Mg Tablet) 100 mg PO BID [facility]; Protocol Last Admin: 08/04/21 09:08 Dose: 100 mg Documented by: LIN Warfarin Sodium (Warfarin Sodium 2.5 Mg Tablet) 2.5 mg PO MoTuWeThFrSa@1800 [facility] Last Admin: 08/03/21 18:13 Dose: 2.5 mg Documented by: MOMO Warfarin Sodium (Warfarin Sodium 5 Mg Tablet) 5 mg PO Carrillo@1800 [facility] Labs CBC & Chem 7: 08/04/21 05:26 08/04/21 05:26 Labs: Laboratory Results - last 24 hr 08/03/21 08/03/21 08/03/21 11:23 16:23 19:50 MCV MCH MCHC RDW Plt Count MPV Absolute Nucleated RBC Nucleated RBC % (auto) PT INR Anion Gap Estim Creat Clear Calc Estimated GFR POC Glucose 154 H 154 H 138 H Fasting Glucose Calcium Magnesium 08/04/21 08/04/21 08/04/21 05:26 05:26 05:26 MCV 86.8 MCH 28.2 MCHC 32.5 RDW 16.3 H Plt Count 260 MPV 9.8 Absolute Nucleated RBC 0.000 Nucleated RBC % (auto) 0.0 PT 23.6 H INR 2.0 H Anion Gap 14 Estim Creat Clear Calc 46.6 Estimated GFR 29 POC Glucose Fasting Glucose 120 H Calcium 8.1 L Magnesium 2.0 08/04/21 07:02 MCV MCH MCHC RDW Plt Count MPV Absolute Nucleated RBC Nucleated RBC % (auto) PT INR Anion Gap Estim Creat Clear Calc Estimated GFR POC Glucose 132 H Fasting Glucose Calcium Magnesium Assessment and Plan (1) Acute blood loss anemia (ABLA): Status: Acute (2) Pulmonary hypertension: Status: Acute (3) Permanent atrial fibrillation: Status: Acute (4) Acute on chronic diastolic HF (heart failure): Status: Acute (5) Gross hematuria: Status: Acute Plan 61yo M with HTN, HFpEF with cardioMEMS device in place, HLD, CAD, DM2, DARLENE, severe pHTN, AF on warfarin, CKD3-4, hx CVA, polycythemic vera, chronic hypoxic respiratory failure on 2L recent admission to [facility] for CHF exacerbation presenting with nausea/vomiting, dizziness acute on chronic HFpEF diuresed almost 25L druing this hospital stay TTE 07/07/20 LVEF 50%, no RWMA, mild , mod pulm HTN off bumex drip Continue metolazone 5 mg daily Continue Torsemide home dose follow BMP and BNP, decreased potassium to 40meq daily Acute blood loss anemia 2/2 hematuria/scrotal swelling Hemoglobin dropped to almost 11 from baseline of 14, no transfusion needed at this point Urine bloody tinged , some bleeding around Camilo ,continue Camilo, Keep scrotum elevated hematuria was likely due to traumatic Camilo placement while on anticoagulation; hold off on starting clopdigrel, with keep INR around 2-2.5 Urology recommended to monitor for now only permanent AF INR 2.5 continue metoprolol; d/montez digoxin due to CKD, Coumadin keep INR 2-2.5 CKD4 acute pontine CVA Improved conitnue statin coumadin hypoK resolved monitor nausea/vomiting with 1 episode blood-streaked vomitus Brinda-Reyes tear.? has not recurred since admission s/p IV Protonix, now on oral PPI, repeat hematocrit is stable chronic hypoxic respiratory failure on 2L at home DM2 with hypyerglycemia, A1c 8.6 blood sugar stable, on correction-dose lispro.? on U-500 + Trulicity at home.? Continue diabetic diet and insulin sliding scale. CAD episode of chest pain resolved, troponins flat, continue statin, metoprolol, Imdur HTN stable blood pressure on metoprolol, low-dose hydralazine, Imdur, (amlodipine discontinued) morbid obesity outpt bariatrics evaluation can be considered DARLENE continue CPAP at bedtime and during naps VTE ppx on warfarin with INR 2 dispo plan home with VNA Quality Stroke Does the patient have a stroke diagnosis?: No VTE Prior VTE?: No VTE Risk Level:: Medical - moderate - high VTE Device Contraindication: N/A - Device Ordered VTE Drug Contraindication: Treatment Not Indicated
--- NOTE | 2021-08-04 09:45 | PC.NURSE ---
Skin/Wound assessment completed today. Patient has Stage 2 pressure ulcers to bilateral buttocks- cleansed with wound cleanser then Triad applied with foam dressing. Patient has dry skin to bilateral lower extremities with Hemosiderin staining- Ammonium lactate cream applied.
[2021-08-04 11:35] LABS: Glucose, Whole Blood 136 mg/dL (60-115)
[2021-08-04] MEDS: Potassium Chloride ER 20 MEQ TAB.ER.PRT 40 MEQ PO (13:47)
[2021-08-04 15:52] LABS: Glucose, Whole Blood 139 mg/dL (60-115)
[2021-08-04] MEDS: Warfarin Sodium 2.5 MG TABLET PO (17:22)
[2021-08-04 19:48] LABS: Glucose, Whole Blood 147 mg/dL (60-115)
[2021-08-04] MEDS: Amitriptyline HCl 50 MG TABLET 150 MG PO (20:19)
[2021-08-05] VITALS (7 sets, daily range): BP systolic 105–167; BP diastolic 58–77; PULSE 65–83; RESP 17–20; TEMP 36.1–36.6; O2SAT 92–98
[2021-08-05] MEDS: Omeprazole 40 MG CAPSULE.DR PO ×2 (05:36→16:38)
[2021-08-05 05:51] LABS: Hematocrit 31.7 % (42.0-52.0); Hemoglobin 10.4 g/dl (14.0-18.0); Mean Corpuscular HGB Conc 32.8 g/dl (31.0-36.0); Mean Corpuscular Hemoglobin 28.6 pg (27.0-33.0); Mean Corpuscular Volume 87.1 fL (80.0-98.0); Mean Platelet Volume 9.2 fL (9.4-12.4); Platelet Count 238 X10*3/uL (160-400); Red Blood Count 3.64 X10*6/uL (4.60-5.80); Red Cell Distribution Width 16.3 % (11.0-16.0); White Blood Count 9.3 X10*3/uL (4.8-10.8)
[2021-08-05 06:03] LABS: INTERNATIONAL NORM RATIO 2.2 (0.9-1.1); Prothrombin Time 25.8 SEC (9.9-13.0)
[2021-08-05 06:22] LABS: Anion Gap 13 (12-20); Blood Urea Nitrogen 104 mg/dL (9-16); Calcium 8.1 mg/dL (8.4-10.2); Carbon Dioxide 32 mmol/L (22-29); Chloride 94 mmol/L (96-108); Creatinine Clr Calc Pharmacy 46.2; Estimated Glomerular Filt Rate 29; Glucose Fasting 123 mg/dL (60-99); Potassium 3.1 mmol/L (3.3-5.1); Sodium 136 mmol/L (135-145)
[2021-08-05 07:19] LABS: Glucose, Whole Blood 137 mg/dL (60-115)
[2021-08-05] MEDS: Atorvastatin Calcium 80 MG TABLET PO (07:50)
[2021-08-05] MEDS: Isosorbide Mononitrate 60 MG TAB.ER.24H PO (07:50)
[2021-08-05] MEDS: Metoprolol Succinate ER 25 MG TAB.ER.24H PO (07:50)
[2021-08-05] MEDS: metOLazone 5 MG TABLET PO (07:50)
[2021-08-05] MEDS: Ascorbic Acid 500 MG TABLET PO (07:50)
[2021-08-05] MEDS: hydrALAZINE HCl 25 MG TABLET PO ×2 (07:50→16:38)
[2021-08-05] MEDS: Torsemide 20 MG TABLET 100 MG PO (07:50)
[2021-08-05] MEDS: Amitriptyline HCl 50 MG TABLET 150 MG PO (07:51)
[2021-08-05] MEDS: Insulin Lispro 100 UNIT/ML 3 ML VIAL SUBCUT ×4 (07:52→20:19)
[2021-08-05] MEDS: Amitriptyline HCl 50 MG TABLET PO (07:58)
[2021-08-05] MEDS: 0.9 % Sodium Chloride Flush 3 ML SYRINGE IVFLUSH ×3 (07:59→23:36)
[2021-08-05] MEDS: Ammonium Lactate 12 % Cream 140 GM TUBE 1 APPL TOPICAL (08:07)
--- NOTE | 2021-08-05 09:50 | HO.PM.IMPN ---
Subjective Subjective Date of Service: 08/05/21 Interval History: continues to have bleeding around urinary catheter anasarca improved Cardiovascular Cardiovascular: Reports no additional cardiovascular complaints Respiratory Respiratory: Reports no additional respiratory complaints Physical Exam Vital Signs: Vital Signs: Last Vital Signs Temp 97.9 F 08/05/21 03:47 Pulse 65 08/05/21 03:47 Resp 18 08/05/21 03:47 BP 167/77 H 08/05/21 03:47 Pulse Ox 98 08/05/21 03:47 Oxygen Flow Rate 3 07/22/21 04:00 BMI result Body Mass Index 39.2 General: AO X 3, no acute distress Resp:? CTA bilateral, no accessory muscles used CVS: S1,S2,RRR, systolic murmur : blood around catheter, improved edema GI: soft, non tender, non distended Neuro:? motor grossly intact, alert Psych: appropriate affect, appropriate insight? Objective Data Active Medications Acetaminophen (Acetaminophen 325 Mg Tablet) 650 mg PO Q6H PRN PRN Reason: Pain, Mild (Pain Scale 1-3) Last Admin: 08/01/21 15:10 Dose: 650 mg Documented by: RYAN Al Hydroxide/Mg Hydroxide (Magnesium Hydrox/Alum Hydrox 30 Ml Oral.Susp) 30 ml PO Q4H PRN PRN Reason: heartbirun Last Admin: 07/19/21 00:23 Dose: 30 ml Documented by: GIL Amitriptyline HCl (Amitriptyline Hcl 50 Mg Tablet) 150 mg PO BEDTIME [facility] Last Admin: 08/05/21 07:51 Dose: 150 mg Documented by: SHARAD Amitriptyline HCl (Amitriptyline Hcl 50 Mg Tablet) 50 mg PO DAILY [facility] Last Admin: 08/05/21 07:58 Dose: 50 mg Documented by: SHARAD Ascorbic Acid (Ascorbic Acid 500 Mg Tablet) 500 mg PO DAILY [facility] Last Admin: 08/05/21 07:50 Dose: 500 mg Documented by: SHARAD Atorvastatin Calcium (Atorvastatin Calcium 80 Mg Tablet) 80 mg PO DAILY [facility] Last Admin: 08/05/21 07:50 Dose: 80 mg Documented by: SHARAD Bismuth Subsalicylate (Bismuth Subsalicylate Liquid 524 Mg/30 Ml Oral.Susp) 524 mg PO QID PRN PRN Reason: Indigestion Last Admin: 07/18/21 15:06 Dose: 524 mg Documented by: LORE Dextrose (Dextrose 50 % 25 Gm/50 Ml Syringe) 25 gm IVPUSH Q15M PRN; Protocol PRN Reason: per Hypoglycemia Standing Ord. Docusate Sodium (Docusate Sodium 100 Mg Capsule) 100 mg PO DAILY PRN PRN Reason: Constipation Glucose (Glucose Gel 15 Gm Gel..Gram.) 15 gm PO Q15M PRN; Protocol PRN Reason: per Hypoglycemia Standing Ord. Hydralazine HCl (Hydralazine Hcl 25 Mg Tablet) 25 mg PO TID [facility]; Protocol Last Admin: 08/05/21 07:50 Dose: 25 mg Documented by: SHARAD Insulin Human Lispro (Insulin Lispro 100 Unit/Ml 3 Ml Vial) 0 unit SUBCUT QIDACHS [facility]; Protocol Last Admin: 08/05/21 07:52 Dose: 2 unit Documented by: SHARAD Isosorbide Mononitrate (Isosorbide Mononitrate 60 Mg Tab.Er.24h) 60 mg PO DAILY [facility]; Protocol Last Admin: 08/05/21 07:50 Dose: 60 mg Documented by: SHARAD Lactic Acid (Ammonium Lactate 12 % Cream 140 Gm Tube) 1 appl TOPICAL DAILY [facility]; Protocol Last Admin: 08/05/21 08:07 Dose: 1 appl Documented by: SHARAD Metolazone (Metolazone 5 Mg Tablet) 5 mg PO DAILY [facility] Last Admin: 08/05/21 07:50 Dose: 5 mg Documented by: SHARAD Metoprolol Succinate (Metoprolol Succinate Er 25 Mg Tab.Er.24h) 25 mg PO DAILY [facility]; Protocol Last Admin: 08/05/21 07:50 Dose: 25 mg Documented by: SHARAD Omeprazole (Omeprazole 40 Mg Capsule.Dr) 40 mg PO BID@0630,1630 [facility] Last Admin: 08/05/21 05:36 Dose: 40 mg Documented by: ASTER Ondansetron HCl (Ondansetron Hcl 4 Mg/2 Ml Vial) 4 mg IVPUSH Q8H PRN PRN Reason: Nausea and Vomiting Last Admin: 07/19/21 06:16 Dose: 4 mg Documented by: GIL Oxycodone HCl (Oxycodone Hcl Immed Release 5 Mg Tablet) 5 mg PO Q4H PRN PRN Reason: Pain, Severe (Pain Scale 7-10) Last Admin: 08/04/21 16:06 Dose: 5 mg Documented by: KIRTI Pharmacy Consult (Consult Rx Perform Med Rec) 1 each MISCELLANE ONCE PRN PRN Reason: Consult order Potassium Chloride (Potassium Chloride Er 20 Meq Tab.Er.Prt) 40 meq PO DAILY@1230 [facility] Last Admin: 08/04/21 13:47 Dose: 40 meq Documented by: JAYLYN Sodium Chloride (0.9 % Sodium Chloride Flush 3 Ml Syringe) 3 ml IVFLUSH QSHIFT [facility] Last Admin: 08/05/21 07:59 Dose: 3 ml Documented by: SHARAD Torsemide (Torsemide 20 Mg Tablet) 100 mg PO BID [facility]; Protocol Last Admin: 08/05/21 07:50 Dose: 100 mg Documented by: SHARAD Warfarin Sodium (Warfarin Sodium 2.5 Mg Tablet) 2.5 mg PO MoTuWeThFrSa@1800 [facility] Last Admin: 08/04/21 17:22 Dose: 2.5 mg Documented by: KIRTI Warfarin Sodium (Warfarin Sodium 5 Mg Tablet) 5 mg PO Carrillo@1800 [facility] Labs CBC & Chem 7: 08/05/21 05:36 08/05/21 05:36 Labs: Laboratory Results - last 24 hr 08/04/21 08/04/21 08/04/21 11:26 15:49 19:43 MCV MCH MCHC RDW Plt Count MPV Absolute Nucleated RBC Nucleated RBC % (auto) PT INR Anion Gap Estim Creat Clear Calc Estimated GFR POC Glucose 136 H 139 H 147 H Fasting Glucose Calcium 08/05/21 08/05/21 08/05/21 05:36 05:36 05:36 MCV 87.1 MCH 28.6 MCHC 32.8 RDW 16.3 H Plt Count 238 MPV 9.2 L Absolute Nucleated RBC 0.000 Nucleated RBC % (auto) 0.0 PT 25.8 H INR 2.2 H Anion Gap 13 Estim Creat Clear Calc 46.2 Estimated GFR 29 POC Glucose Fasting Glucose 123 H Calcium 8.1 L 08/05/21 07:11 MCV MCH MCHC RDW Plt Count MPV Absolute Nucleated RBC Nucleated RBC % (auto) PT INR Anion Gap Estim Creat Clear Calc Estimated GFR POC Glucose 137 H Fasting Glucose Calcium Assessment and Plan (1) Acute blood loss anemia (ABLA): Status: Acute (2) Pulmonary hypertension: Status: Acute (3) Permanent atrial fibrillation: Status: Acute (4) Acute on chronic diastolic HF (heart failure): Status: Acute (5) Gross hematuria: Status: Acute Plan 61yo M with HTN, HFpEF with cardioMEMS device in place, HLD, CAD, DM2, DARLENE, severe pHTN, AF on warfarin, CKD3-4, hx CVA, polycythemic vera, chronic hypoxic respiratory failure on 2L recent admission to [facility] for CHF exacerbation presenting with nausea/vomiting, dizziness acute on chronic HFpEF diuresed almost 25L druing this hospital stay TTE 07/07/20 LVEF 50%, no RWMA, mild , mod pulm HTN off bumex drip Continue metolazone 5 mg daily Continue Torsemide home dose follow BMP and BNP, decreased potassium to 40meq daily Acute blood loss anemia 2/2 hematuria/scrotal swelling Hemoglobin dropped to almost 11 from baseline of 14, no transfusion needed at this point Urine bloody tinged , some bleeding around Camilo ,continue Camilo, Keep scrotum elevated hematuria was likely due to traumatic Camilo placement while on anticoagulation; hold off on starting clopdigrel, with keep INR around 2-2.5 Urology recommended to monitor for now only permanent AF continue metoprolol; d/montez digoxin due to CKD, Coumadin keep INR 2-2.5 CKD4 stable acute pontine CVA Improved conitnue statin coumadin hypoK still hypokalemic despite K 40meq at lunch continue potassium 40meq at lunch, add 20meq am and pm for 80meq total monitor nausea/vomiting with 1 episode blood-streaked vomitus Brinda-Reyes tear.? has not recurred since admission s/p IV Protonix, now on oral PPI, repeat hematocrit is stable chronic hypoxic respiratory failure on 2L at home DM2 with hypyerglycemia, A1c 8.6 blood sugar stable, on correction-dose lispro.? on U-500 + Trulicity at home.? Continue diabetic diet and insulin sliding scale. CAD episode of chest pain resolved, troponins flat, continue statin, metoprolol, Imdur HTN stable blood pressure on metoprolol, low-dose hydralazine, Imdur, (amlodipine discontinued) morbid obesity outpt bariatrics evaluation can be considered DARLENE continue CPAP at bedtime and during naps VTE ppx on warfari dispo plan home with VNA Quality Stroke Does the patient have a stroke diagnosis?: No VTE Prior VTE?: No VTE Risk Level:: Medical - moderate - high VTE Device Contraindication: N/A - Device Ordered VTE Drug Contraindication: Treatment Not Indicated
[2021-08-05 11:23] LABS: Glucose, Whole Blood 148 mg/dL (60-115)
[2021-08-05] MEDS: Potassium Chloride ER 20 MEQ TAB.ER.PRT 40 MEQ PO (12:09)
--- NOTE | 2021-08-05 13:16 | MHC.CLN ---
F/U CONTINUES TO EAT WELL WITH MOST MEALS 75-100%. BUN AND Cr CONTINUE ELEVATED. DIET=DIABETIC 2000 KCAL, 2 G SODIUM. STAGE II WOUND TO BILATERAL BUTTOCKS. GLUCERNA SUPPLEMENT BID PROVIDES 474 KCAL, 20 G PROTEIN. CONTINUE TO FOLLOW LABS, INTAKE, AND WOUND.
--- NOTE | 2021-08-05 14:21 | MHC.CM.PN ---
EMR REVIEWED, PT'S H&H CONT'S TO TREND DOWN, BUN/CR SLOWLY TRENDING UP, PT CONT'S TO BLEED AROUND PERDUE CATH, NO PLAN FOR D/C AT THIS TIME, CM WILL CONT TO FOLLOW D/C NEEDS.
[2021-08-05 16:19] LABS: Glucose, Whole Blood 184 mg/dL (60-115)
[2021-08-05] MEDS: Warfarin Sodium 2.5 MG TABLET PO (16:37)
[2021-08-05 19:44] LABS: Glucose, Whole Blood 189 mg/dL (60-115)
[2021-08-05] MEDS: oxyCODONE HCl Immed Release 5 MG TABLET PO (20:19)
[2021-08-05] MEDS: Potassium Chloride ER 20 MEQ TAB.ER.PRT PO (20:19)
[2021-08-06] VITALS (8 sets, daily range): BP systolic 107–129; BP diastolic 62–69; PULSE 61–82; RESP 17–20; TEMP 36–36.7; O2SAT 92–98
[2021-08-06] MEDS: Omeprazole 40 MG CAPSULE.DR PO ×2 (05:39→16:49)
[2021-08-06 06:13] LABS: Hematocrit 31.2 % (42.0-52.0); Hemoglobin 10.2 g/dl (14.0-18.0); Mean Corpuscular HGB Conc 32.7 g/dl (31.0-36.0); Mean Corpuscular Hemoglobin 28.3 pg (27.0-33.0); Mean Corpuscular Volume 86.7 fL (80.0-98.0); Mean Platelet Volume 9.6 fL (9.4-12.4); Platelet Count 247 X10*3/uL (160-400); Red Cell Distribution Width 15.8 % (11.0-16.0); White Blood Count 9.2 X10*3/uL (4.8-10.8)
[2021-08-06 06:20] LABS: INTERNATIONAL NORM RATIO 2.4 (0.9-1.1); Prothrombin Time 28.2 SEC (9.9-13.0)
[2021-08-06 06:37] LABS: Anion Gap 12 (12-20); Blood Urea Nitrogen 110 mg/dL (9-16); Calcium 7.9 mg/dL (8.4-10.2); Carbon Dioxide 32 mmol/L (22-29); Chloride 92 mmol/L (96-108); Creatinine Clr Calc Pharmacy 41.9; Estimated Glomerular Filt Rate 26; Glucose Fasting 148 mg/dL (60-99); Potassium 3.4 mmol/L (3.3-5.1); Sodium 133 mmol/L (135-145)
[2021-08-06 08:12] LABS: Glucose, Whole Blood 169 mg/dL (60-115)
[2021-08-06] MEDS: Isosorbide Mononitrate 60 MG TAB.ER.24H PO (09:09)
[2021-08-06] MEDS: Amitriptyline HCl 50 MG TABLET PO (09:09)
[2021-08-06] MEDS: Atorvastatin Calcium 80 MG TABLET PO (09:09)
[2021-08-06] MEDS: Metoprolol Succinate ER 25 MG TAB.ER.24H PO (09:10)
[2021-08-06] MEDS: metOLazone 5 MG TABLET PO (09:10)
[2021-08-06] MEDS: Ascorbic Acid 500 MG TABLET PO (09:10)
[2021-08-06] MEDS: Potassium Chloride ER 20 MEQ TAB.ER.PRT 40 MEQ PO ×2 (09:44→09:58)
[2021-08-06] MEDS: hydrALAZINE HCl 25 MG TABLET PO ×2 (09:45→13:42)
[2021-08-06] MEDS: Torsemide 20 MG TABLET 100 MG PO (09:45)
[2021-08-06] MEDS: 0.9 % Sodium Chloride Flush 3 ML SYRINGE IVFLUSH ×2 (09:45→16:50)
[2021-08-06] MEDS: Insulin Lispro 100 UNIT/ML 3 ML VIAL SUBCUT ×4 (09:46→20:52)
[2021-08-06] MEDS: Ammonium Lactate 12 % Cream 140 GM TUBE 1 APPL TOPICAL (09:48)
[2021-08-06] MEDS: Potassium Chloride ER 20 MEQ TAB.ER.PRT PO ×2 (10:03→20:52)
--- NOTE | 2021-08-06 10:11 | P.PNIM_ITS ---
Subjective Subjective Date of Service: 08/06/21 Interval History: continues to have bleeding around urinary catheter anasarca improved Cardiovascular Cardiovascular: Reports no additional cardiovascular complaints Respiratory Respiratory: Reports no additional respiratory complaints Physical Exam Verdana 4l Vital Signs: Verdana 4d Verdana 4d Vital Signs: Verdana 4d Verdana 4Bd Last Vital Signs Verdana 4d Supervisor Statement Clerks New 4d Supervisor Statement Clerks New 4d Temp 96.8 F 08/06/21 08:00 Supervisor Statement Clerks New 4d Pulse 66 08/06/21 08:00 Supervisor Statement Clerks New 4d Resp 18 08/06/21 08:00 BP 123/65 08/06/21 08:00 Pulse Ox 95 08/06/21 08:00 Oxygen Flow Rate 3 07/22/21 04:00 BMI result Body Mass Index 39.2 General: AO X 3, no acute distress Resp:? CTA bilateral, no accessory muscles used CVS: S1,S2,RRR, systolic murmur : blood around catheter, improved edema GI: soft, non tender, non distended Neuro:? motor grossly intact, alert Psych: appropriate affect, appropriate insight? Objective Data Active Medications Acetaminophen (Acetaminophen 325 Mg Tablet) 650 mg PO Q6H PRN PRN Reason: Pain, Mild (Pain Scale 1-3) Last Admin: 08/01/21 15:10 Dose: 650 mg Documented by: RYAN Al Hydroxide/Mg Hydroxide (Magnesium Hydrox/Alum Hydrox 30 Ml Oral.Susp) 30 ml PO Q4H PRN PRN Reason: heartbirun Last Admin: 07/19/21 00:23 Dose: 30 ml Documented by: GIL Amitriptyline HCl (Amitriptyline Hcl 50 Mg Tablet) 150 mg PO BEDTIME [facility] Last Admin: 08/05/21 07:51 Dose: 150 mg Documented by: SHARAD Amitriptyline HCl (Amitriptyline Hcl 50 Mg Tablet) 50 mg PO DAILY [facility] Last Admin: 08/06/21 09:09 Dose: 50 mg Documented by: SHARAD Ascorbic Acid (Ascorbic Acid 500 Mg Tablet) 500 mg PO DAILY [facility] Last Admin: 08/06/21 09:10 Dose: 500 mg Documented by: SHARAD Atorvastatin Calcium (Atorvastatin Calcium 80 Mg Tablet) 80 mg PO DAILY [facility] Last Admin: 08/06/21 09:09 Dose: 80 mg Documented by: SHARAD Bismuth Subsalicylate (Bismuth Subsalicylate Liquid 524 Mg/30 Ml Oral.Susp) 524 mg PO QID PRN PRN Reason: Indigestion Last Admin: 07/18/21 15:06 Dose: 524 mg Documented by: LORE Dextrose (Dextrose 50 % 25 Gm/50 Ml Syringe) 25 gm IVPUSH Q15M PRN; Protocol PRN Reason: per Hypoglycemia Standing Ord. Docusate Sodium (Docusate Sodium 100 Mg Capsule) 100 mg PO DAILY PRN PRN Reason: Constipation Glucose (Glucose Gel 15 Gm Gel..Gram.) 15 gm PO Q15M PRN; Protocol PRN Reason: per Hypoglycemia Standing Ord. Hydralazine HCl (Hydralazine Hcl 25 Mg Tablet) 25 mg PO TID [facility]; Protocol Last Admin: 08/06/21 09:45 Dose: 25 mg Documented by: SHARAD Insulin Human Lispro (Insulin Lispro 100 Unit/Ml 3 Ml Vial) 0 unit SUBCUT QIDACHS [facility]; Protocol Last Admin: 08/06/21 09:46 Dose: 2 unit Documented by: SHARAD Isosorbide Mononitrate (Isosorbide Mononitrate 60 Mg Tab.Er.24h) 60 mg PO DAILY [facility]; Protocol Last Admin: 08/06/21 09:09 Dose: 60 mg Documented by: SHARAD Lactic Acid (Ammonium Lactate 12 % Cream 140 Gm Tube) 1 appl TOPICAL DAILY [facility]; Protocol Last Admin: 08/06/21 09:48 Dose: 1 appl Documented by: SHARAD Metolazone (Metolazone 5 Mg Tablet) 5 mg PO DAILY [facility] Last Admin: 08/06/21 09:10 Dose: 5 mg Documented by: SHARAD Metoprolol Succinate (Metoprolol Succinate Er 25 Mg Tab.Er.24h) 25 mg PO DAILY [facility]; Protocol Last Admin: 08/06/21 09:10 Dose: 25 mg Documented by: SHARAD Omeprazole (Omeprazole 40 Mg Capsule.) 40 mg PO BID@0630,1630 [facility] Last Admin: 08/06/21 05:39 Dose: 40 mg Documented by: ABIGAIL Ondansetron HCl (Ondansetron Hcl 4 Mg/2 Ml Vial) 4 mg IVPUSH Q8H PRN PRN Reason: Nausea and Vomiting Last Admin: 07/19/21 06:16 Dose: 4 mg Documented by: GIL Pharmacy Consult (Consult Rx Perform Med Rec) 1 each MISCELLANE ONCE PRN PRN Reason: Consult order Potassium Chloride (Potassium Chloride Er 20 Meq Tab.Er.Prt) 40 meq PO DAILY@1230 [facility] Last Admin: 08/06/21 09:58 Dose: 40 meq Documented by: SHARAD Potassium Chloride (Potassium Chloride Er 20 Meq Tab.Er.Prt) 20 meq PO BID [facility] Last Admin: 08/06/21 10:03 Dose: 20 meq Documented by: SHARAD Sodium Chloride (0.9 % Sodium Chloride Flush 3 Ml Syringe) 3 ml IVFLUSH QSHIFT [facility] Last Admin: 08/06/21 09:45 Dose: 3 ml Documented by: SHARAD Torsemide (Torsemide 20 Mg Tablet) 100 mg PO BID [facility]; Protocol Last Admin: 08/06/21 09:45 Dose: 100 mg Documented by: SHARAD Warfarin Sodium (Warfarin Sodium 1 Mg Tablet) 1 mg PO DAILY@1800 [facility] Labs CBC & Chem 7: 08/06/21 05:18 08/06/21 05:18 Labs: Laboratory Results - last 24 hr 08/05/21 08/05/21 08/05/21 11:07 15:28 19:19 MCV MCH MCHC RDW Plt Count MPV Absolute Nucleated RBC Nucleated RBC % (auto) PT INR Anion Gap Estim Creat Clear Calc Estimated GFR POC Glucose 148 H 184 H 189 H Fasting Glucose Calcium 08/06/21 08/06/21 08/06/21 05:18 05:18 05:18 MCV 86.7 MCH 28.3 MCHC 32.7 RDW 15.8 Plt Count 247 MPV 9.6 Absolute Nucleated RBC 0.000 Nucleated RBC % (auto) 0.0 PT 28.2 H INR 2.4 H Anion Gap 12 Estim Creat Clear Calc 41.9 Estimated GFR 26 POC Glucose Fasting Glucose 148 H Calcium 7.9 L 08/06/21 08:05 MCV MCH MCHC RDW Plt Count MPV Absolute Nucleated RBC Nucleated RBC % (auto) PT INR Anion Gap Estim Creat Clear Calc Estimated GFR POC Glucose 169 H Fasting Glucose Calcium Assessment and Plan (1) Acute blood loss anemia (ABLA): Status: Acute (2) Pulmonary hypertension: Status: Acute (3) Permanent atrial fibrillation: Status: Acute (4) Acute on chronic diastolic HF (heart failure): Status: Acute (5) Gross hematuria: Status: Acute Plan 61yo M with HTN, HFpEF with cardioMEMS device in place, HLD, CAD, DM2, DARLENE, severe pHTN, AF on warfarin, CKD3-4, hx CVA, polycythemic vera, chronic hypoxic respiratory failure on 2L recent admission to [facility] for CHF exacerbation presenting with nausea/vomiting, dizziness acute on chronic HFpEF diuresed almost 25L druing this hospital stay TTE 07/07/20 LVEF 50%, no RWMA, mild , mod pulm HTN off bumex drip Continue metolazone 5 mg daily Continue Torsemide home dose follow BMP and BNP Acute blood loss anemia 2/2 hematuria/scrotal swelling Hemoglobin dropped to almost 11 from baseline of 14, no transfusion needed at this point Urine bloody tinged , some bleeding around Mcknight Keep scrotum elevated hematuria was likely due to traumatic Mcknight placement while on anticoagulation ? ongoing trauma from mcknight, will dc mcknight and monitor closely permanent AF continue metoprolol; d/montez digoxin due to CKD, Coumadin keep INR 2-2.5 CKD4 stable acute pontine CVA Improved conitnue statin coumadin hypoK continue potassium 40meq at lunch, 20meq am and pm for 80meq total monitor nausea/vomiting with 1 episode blood-streaked vomitus Brinda-Reyes tear.? has not recurred since admission s/p IV Protonix, now on oral PPI, repeat hematocrit is stable chronic hypoxic respiratory failure on 2L at home DM2 with hypyerglycemia, A1c 8.6 blood sugar stable, on correction-dose lispro.? on U-500 + Trulicity at home.? Continue diabetic diet and insulin sliding scale. CAD episode of chest pain resolved, troponins flat, continue statin, metoprolol, Imdur HTN stable blood pressure on metoprolol, low-dose hydralazine, Imdur, (amlodipine discontinued) morbid obesity outpt bariatrics evaluation can be considered DARLENE continue CPAP at bedtime and during naps VTE ppx on warfari dispo plan home with VNA Quality Stroke Does the patient have a stroke diagnosis?: No VTE Prior VTE?: No VTE Risk Level:: Medical - moderate - high VTE Device Contraindication: N/A - Device Ordered VTE Drug Contraindication: Treatment Not Indicated
[2021-08-06 12:13] LABS: Glucose, Whole Blood 161 mg/dL (60-115)
[2021-08-06] MEDS: Acetaminophen 325 MG TABLET 650 MG PO ×2 (13:42→22:16)
[2021-08-06 16:38] LABS: Glucose, Whole Blood 192 mg/dL (60-115)
[2021-08-06] MEDS: Warfarin Sodium 1 MG TABLET PO (16:49)
[2021-08-06 20:19] LABS: Glucose, Whole Blood 148 mg/dL (60-115)
[2021-08-06] MEDS: Amitriptyline HCl 50 MG TABLET 150 MG PO (20:52)
[2021-08-06] MEDS: oxyCODONE HCl Immed Release 5 MG TABLET PO (23:59)
[2021-08-07] VITALS (7 sets, daily range): BP systolic 108–133; BP diastolic 53–69; PULSE 57–75; RESP 16–20; TEMP 36–36.7; O2SAT 91–99
[2021-08-07] MEDS: HYDROmorphone HCl 1 MG/ML SYRINGE 0.5 MG IVPUSH ×4 (01:51→22:43)
[2021-08-07] MEDS: 0.9 % Sodium Chloride Flush 3 ML SYRINGE IVFLUSH ×4 (01:53→20:09)
--- NOTE | 2021-08-07 02:11 | PM.EVENT ---
Event Note Date of Service: 08/07/21 Event Note: Hematuria/Urine retension: Pt has Camilo removed on 08/06/21 Am; overnight pt was unable to pee-> bladder scan showed 1000cc; Repleaced Camilo -> draining gross bloody urine. CBC stat Urology follow up. had small clots -> freely drained with irrigation. if contunue to have clos will consider CBI.
[2021-08-07 03:42] LABS: MANUAL DIFF FLAG NO
[2021-08-07 03:44] LABS: Basophils Percent Auto 0.1 % (0-2); Eosinophils Absolute Auto 0.1 X10*3/uL (0.0-0.4); Eosinophils Percent Auto 0.4 % (0-4); Hematocrit 30.7 % (42.0-52.0); Hemoglobin 10.4 g/dl (14.0-18.0); Imm Gran Abs Auto 0.05 X10*3/uL (0.00-0.03); Imm Gran Pct Auto 0.4 % (0.0-0.4); Lymphocytes Absolute Auto 0.5 X10*3/uL (1.2-4.9); Lymphocytes Percent Auto 3.7 % (20-40); Mean Corpuscular HGB Conc 33.9 g/dl (31.0-36.0); Mean Corpuscular Hemoglobin 29.1 pg (27.0-33.0); Mean Platelet Volume 9.9 fL (9.4-12.4); Monocytes Absolute Auto 0.9 X10*3/uL (0.1-1.2); Monocytes Percent Auto 7.4 % (2-11); Neutrophils Absolute Auto 11.1 x10*3/uL (2.0-8.3); Platelet Count 270 X10*3/uL (160-400); Red Blood Count 3.57 X10*6/uL (4.60-5.80); Red Cell Distribution Width 16.1 % (11.0-16.0); White Blood Count 12.6 X10*3/uL (4.8-10.8)
[2021-08-07] MEDS: Omeprazole 40 MG CAPSULE.DR PO ×2 (05:47→15:06)
[2021-08-07 06:51] LABS: Hematocrit 31.8 % (42.0-52.0); Hemoglobin 10.4 g/dl (14.0-18.0); Mean Corpuscular HGB Conc 32.7 g/dl (31.0-36.0); Mean Corpuscular Hemoglobin 28.3 pg (27.0-33.0); Mean Corpuscular Volume 86.4 fL (80.0-98.0); Mean Platelet Volume 9.4 fL (9.4-12.4); Platelet Count 268 X10*3/uL (160-400); Red Blood Count 3.68 X10*6/uL (4.60-5.80)
[2021-08-07 07:20] LABS: Anion Gap 15 (12-20); Blood Urea Nitrogen 115 mg/dL (9-16); Calcium 8.3 mg/dL (8.4-10.2); Carbon Dioxide 30 mmol/L (22-29); Chloride 92 mmol/L (96-108); Creatinine Clr Calc Pharmacy 44.7; Estimated Glomerular Filt Rate 28; Glucose Fasting 152 mg/dL (60-99); Potassium 3.1 mmol/L (3.3-5.1); Sodium 134 mmol/L (135-145)
[2021-08-07 08:08] LABS: Glucose, Whole Blood 154 mg/dL (60-115)
[2021-08-07] MEDS: metOLazone 5 MG TABLET PO (08:12)
[2021-08-07] MEDS: Ascorbic Acid 500 MG TABLET PO (08:12)
[2021-08-07] MEDS: Atorvastatin Calcium 80 MG TABLET PO (08:12)
[2021-08-07] MEDS: Metoprolol Succinate ER 25 MG TAB.ER.24H PO (08:12)
[2021-08-07] MEDS: hydrALAZINE HCl 25 MG TABLET PO ×3 (08:12→20:08)
[2021-08-07] MEDS: Isosorbide Mononitrate 60 MG TAB.ER.24H PO (08:13)
[2021-08-07] MEDS: Amitriptyline HCl 50 MG TABLET PO (08:13)
[2021-08-07] MEDS: Potassium Chloride ER 20 MEQ TAB.ER.PRT PO ×2 (08:14→20:08)
[2021-08-07 08:15] LABS: INTERNATIONAL NORM RATIO 2.8 (0.9-1.1); Prothrombin Time 32.2 SEC (9.9-13.0)
[2021-08-07] MEDS: Torsemide 20 MG TABLET 100 MG PO ×2 (08:15→20:08)
[2021-08-07] MEDS: Insulin Lispro 100 UNIT/ML 3 ML VIAL SUBCUT ×4 (08:15→20:09)
[2021-08-07] MEDS: Ammonium Lactate 12 % Cream 140 GM TUBE 1 APPL TOPICAL (08:19)
--- NOTE | 2021-08-07 08:55 | P.PNIM_ITS ---
Subjective Subjective Date of Service: 08/07/21 Interval History: continues to have bleeding around urinary catheter, failed voiding trial anasarca improved Cardiovascular Cardiovascular: Reports no additional cardiovascular complaints Respiratory Respiratory: Reports no additional respiratory complaints Physical Exam Verdana 4l Vital Signs: Verdana 4d Verdana 4d Vital Signs: Verdana 4d Verdana 4Bd Last Vital Signs Verdana 4d Tracing Lathe Set Up Operator New 4d Tracing Lathe Set Up Operator New 4d Temp 96.8 F 08/07/21 07:23 Tracing Lathe Set Up Operator New 4d Pulse 61 08/07/21 07:23 Tracing Lathe Set Up Operator New 4d Resp 18 08/07/21 07:23 BP 133/58 L 08/07/21 07:23 Pulse Ox 91 L 08/07/21 07:23 Oxygen Flow Rate 3 07/22/21 04:00 BMI result Body Mass Index 39.2 General: AO X 3, no acute distress Resp:? CTA bilateral, no accessory muscles used CVS: S1,S2,RRR, systolic murmur : blood around catheter, improved edema GI: soft, non tender, non distended Neuro:? motor grossly intact, alert Psych: appropriate affect, appropriate insight? Objective Data Active Medications Acetaminophen (Acetaminophen 325 Mg Tablet) 650 mg PO Q6H PRN PRN Reason: Pain, Mild (Pain Scale 1-3) Last Admin: 08/06/21 22:16 Dose: 650 mg Documented by: ABIGAIL Al Hydroxide/Mg Hydroxide (Magnesium Hydrox/Alum Hydrox 30 Ml Oral.Susp) 30 ml PO Q4H PRN PRN Reason: heartbirun Last Admin: 07/19/21 00:23 Dose: 30 ml Documented by: GIL Amitriptyline HCl (Amitriptyline Hcl 50 Mg Tablet) 150 mg PO BEDTIME [facility] Last Admin: 08/06/21 20:52 Dose: 150 mg Documented by: ABIGAIL Amitriptyline HCl (Amitriptyline Hcl 50 Mg Tablet) 50 mg PO DAILY [facility] Last Admin: 08/07/21 08:13 Dose: 50 mg Documented by: SHARAD Ascorbic Acid (Ascorbic Acid 500 Mg Tablet) 500 mg PO DAILY [facility] Last Admin: 08/07/21 08:12 Dose: 500 mg Documented by: SHARAD Atorvastatin Calcium (Atorvastatin Calcium 80 Mg Tablet) 80 mg PO DAILY [facility] Last Admin: 08/07/21 08:12 Dose: 80 mg Documented by: SHARAD Bismuth Subsalicylate (Bismuth Subsalicylate Liquid 524 Mg/30 Ml Oral.Susp) 524 mg PO QID PRN PRN Reason: Indigestion Last Admin: 07/18/21 15:06 Dose: 524 mg Documented by: LORE Dextrose (Dextrose 50 % 25 Gm/50 Ml Syringe) 25 gm IVPUSH Q15M PRN; Protocol PRN Reason: per Hypoglycemia Standing Ord. Docusate Sodium (Docusate Sodium 100 Mg Capsule) 100 mg PO DAILY PRN PRN Reason: Constipation Glucose (Glucose Gel 15 Gm Gel..Gram.) 15 gm PO Q15M PRN; Protocol PRN Reason: per Hypoglycemia Standing Ord. Hydralazine HCl (Hydralazine Hcl 25 Mg Tablet) 25 mg PO TID [facility]; Protocol Last Admin: 08/07/21 08:12 Dose: 25 mg Documented by: SHARAD Hydromorphone HCl (Hydromorphone Hcl 1 Mg/Ml Syringe) 0.5 mg IVPUSH Q4H PRN; Protocol PRN Reason: Breakthrough Pain Last Admin: 08/07/21 05:47 Dose: 0.5 mg Documented by: ABIGAIL Insulin Human Lispro (Insulin Lispro 100 Unit/Ml 3 Ml Vial) 0 unit SUBCUT QIDACHS [facility]; Protocol Last Admin: 08/07/21 08:15 Dose: 4 unit Documented by: SHARAD Isosorbide Mononitrate (Isosorbide Mononitrate 60 Mg Tab.Er.24h) 60 mg PO DAILY [facility]; Protocol Last Admin: 08/07/21 08:13 Dose: 60 mg Documented by: SHARAD Lactic Acid (Ammonium Lactate 12 % Cream 140 Gm Tube) 1 appl TOPICAL DAILY [facility]; Protocol Last Admin: 08/07/21 08:19 Dose: 1 appl Documented by: SHARAD Metolazone (Metolazone 5 Mg Tablet) 5 mg PO DAILY [facility] Last Admin: 08/07/21 08:12 Dose: 5 mg Documented by: SHARAD Metoprolol Succinate (Metoprolol Succinate Er 25 Mg Tab.Er.24h) 25 mg PO DAILY [facility]; Protocol Last Admin: 08/07/21 08:12 Dose: 25 mg Documented by: SHARAD Omeprazole (Omeprazole 40 Mg Capsule.Dr) 40 mg PO BID@0630,1630 [facility] Last Admin: 08/07/21 05:47 Dose: 40 mg Documented by: ABIGAIL Ondansetron HCl (Ondansetron Hcl 4 Mg/2 Ml Vial) 4 mg IVPUSH Q8H PRN PRN Reason: Nausea and Vomiting Last Admin: 07/19/21 06:16 Dose: 4 mg Documented by: GIL Pharmacy Consult (Consult Rx Perform Med Rec) 1 each MISCELLANE ONCE PRN PRN Reason: Consult order Potassium Chloride (Potassium Chloride Er 20 Meq Tab.Er.Prt) 40 meq PO DAILY@1230 [facility] Last Admin: 08/06/21 09:58 Dose: 40 meq Documented by: SHARAD Potassium Chloride (Potassium Chloride Er 20 Meq Tab.Er.Prt) 20 meq PO BID [facility] Last Admin: 08/07/21 08:14 Dose: 20 meq Documented by: SHARAD Sodium Chloride (0.9 % Sodium Chloride Flush 3 Ml Syringe) 3 ml IVFLUSH QSHIFT [facility] Last Admin: 08/07/21 08:15 Dose: 3 ml Documented by: SHARAD Torsemide (Torsemide 20 Mg Tablet) 100 mg PO BID [facility]; Protocol Last Admin: 08/07/21 08:15 Dose: 100 mg Documented by: SHARAD Warfarin Sodium (Warfarin Sodium 1 Mg Tablet) 1 mg PO DAILY@1800 [facility] Last Admin: 08/06/21 16:49 Dose: 1 mg Documented by: SHARAD Labs CBC & Chem 7: 08/07/21 06:21 08/07/21 06:21 Labs: Laboratory Results - last 24 hr 08/06/21 08/06/21 08/06/21 11:35 16:00 19:49 MCV MCH MCHC RDW Plt Count MPV Immature Gran % (Auto) Neut % (Auto) Lymph % (Auto) [place] % (Auto) Eos % (Auto) Baso % (Auto) Lymph # (Auto) [place] # (Auto) Eos # (Auto) Baso # (Auto) Abs Immat Gran (auto) Absolute Neuts (auto) Absolute Nucleated RBC Nucleated RBC % (auto) PT INR Anion Gap Estim Creat Clear Calc Estimated GFR POC Glucose 161 H 192 H 148 H Fasting Glucose Calcium 08/07/21 08/07/21 08/07/21 03:16 06:21 06:21 MCV 86.0 86.4 MCH 29.1 28.3 MCHC 33.9 32.7 RDW 16.1 H 16.0 Plt Count 270 268 MPV 9.9 9.4 Immature Gran % (Auto) 0.4 Neut % (Auto) 88.0 H Lymph % (Auto) 3.7 L [place] % (Auto) 7.4 Eos % (Auto) 0.4 Baso % (Auto) 0.1 Lymph # (Auto) 0.5 L [place] # (Auto) 0.9 Eos # (Auto) 0.1 Baso # (Auto) 0.0 Abs Immat Gran (auto) 0.05 H Absolute Neuts (auto) 11.1 H Absolute Nucleated RBC 0.000 0.000 Nucleated RBC % (auto) 0.0 0.0 PT INR Anion Gap 15 Estim Creat Clear Calc 44.7 Estimated GFR 28 POC Glucose Fasting Glucose 152 H Calcium 8.3 L 08/07/21 08/07/21 07:21 07:52 MCV MCH MCHC RDW Plt Count MPV Immature Gran % (Auto) Neut % (Auto) Lymph % (Auto) [place] % (Auto) Eos % (Auto) Baso % (Auto) Lymph # (Auto) [place] # (Auto) Eos # (Auto) Baso # (Auto) Abs Immat Gran (auto) Absolute Neuts (auto) Absolute Nucleated RBC Nucleated RBC % (auto) PT 32.2 H INR 2.8 H Anion Gap Estim Creat Clear Calc Estimated GFR POC Glucose 154 H Fasting Glucose Calcium Assessment and Plan (1) Acute blood loss anemia (ABLA): Status: Acute (2) Pulmonary hypertension: Status: Acute (3) Permanent atrial fibrillation: Status: Acute (4) Acute on chronic diastolic HF (heart failure): Status: Acute (5) Gross hematuria: Status: Acute Plan 61yo M with HTN, HFpEF with cardioMEMS device in place, HLD, CAD, DM2, DARLENE, severe pHTN, AF on warfarin, CKD3-4, hx CVA, polycythemic vera, chronic hypoxic respiratory failure on 2L recent admission to [facility] for CHF exacerbation presenting with nausea/vomiting, dizziness acute on chronic HFpEF diuresed almost 25L druing this hospital stay TTE 07/07/20 LVEF 50%, no RWMA, mild , mod pulm HTN off bumex drip Continue metolazone 5 mg daily Continue Torsemide home dose follow BMP and BNP Acute blood loss anemia 2/2 hematuria/scrotal swelling Hemoglobin dropped to almost 11 from baseline of 14, no transfusion needed at this point Keep scrotum elevated hematuria was likely due to traumatic Camilo placement while on anticoagulation failed voiding trial, continues to bleed, follow up permanent AF continue metoprolol; d/montez digoxin due to CKD, Coumadin keep INR 2-2.5 CKD4 stable acute pontine CVA Improved conitnue statin coumadin hypoK continue potassium 40meq at lunch, 20meq am and pm for 80meq total monitor nausea/vomiting with 1 episode blood-streaked vomitus Brinda-Reyes tear.? has not recurred since admission s/p IV Protonix, now on oral PPI, repeat hematocrit is stable chronic hypoxic respiratory failure on 2L at home DM2 with hypyerglycemia, A1c 8.6 blood sugar stable, on correction-dose lispro.? on U-500 + Trulicity at home.? Continue diabetic diet and insulin sliding scale. CAD episode of chest pain resolved, troponins flat, continue statin, metoprolol, Imdur HTN stable blood pressure on metoprolol, low-dose hydralazine, Imdur, (amlodipine discontinued) morbid obesity outpt bariatrics evaluation can be considered DARLENE continue CPAP at bedtime and during naps VTE ppx on warfari dispo plan home with VNA Quality Stroke Does the patient have a stroke diagnosis?: No VTE Prior VTE?: No VTE Risk Level:: Medical - moderate - high VTE Device Contraindication: N/A - Device Ordered VTE Drug Contraindication: Treatment Not Indicated
[2021-08-07 12:06] LABS: Glucose, Whole Blood 120 mg/dL (60-115)
[2021-08-07 16:08] LABS: Glucose, Whole Blood 128 mg/dL (60-115)
[2021-08-07] MEDS: Warfarin Sodium 1 MG TABLET PO (17:28)
--- NOTE | 2021-08-07 18:21 | P.PNUR_ITS ---
Subjective Subjective Date of Service: 08/07/21 Interval history: Gradually resolving CHF Scrotum swelling has resolved Had Camilo catheter placed yesterday due to persistent urinary retention Recommend use of catheter plug and bladder emptying every 4 hours Follow-up for voiding trial in 3-4 weeks Has poorly controlled diabetes with HbA1c 8.6 Physical Exam Verdana 4l Vital Signs: Verdana 4d Verdana 4d Vital Signs: Verdana 4d Verdana 4Bd Last Vital Signs Verdana 4d Training Specialist New 4d Training Specialist New 4d Temp 97.1 F 08/07/21 15:25 Training Specialist New 4d Pulse 69 08/07/21 15:25 Training Specialist New 4d Resp 18 08/07/21 15:25 BP 108/64 08/07/21 15:25 Pulse Ox 98 08/07/21 15:25 Oxygen Flow Rate 3 07/22/21 04:00 BMI result Body Mass Index 39.2 Const: General: cooperative, healthy appearing, comfortable and no acute distress Orientation/consciousness: patient oriented x3 HENMT: Face and sinus: Yes normal facial exam Mouth: moist mucous membranes Neck: Neck: Yes normal visual inspection, Yes full ROM and Yes trachea midline Chest: Chest palpation & inspection: normal inspection of the chest Resp: Effort & Inspection: normal respiratory effort, able to speak in complete sentences and no respiratory distress GI: Inspection: Yes normal to inspection Back/Spine/Pelvis: Cervical Spine: normal cervical lordosis Thoracic/Lumbar Spine: thoracic and lumbar spine normal to inspection Skin: General skin exam: no rashes or lesions noted Neuro: General: patient oriented x3, tone normal and moves all extremities Extrem: General: Yes normal to inspection and Yes capillary refill normal Urology Results Labs CBC & Chem 7: 08/07/21 06:21 08/07/21 06:21 Labs: Laboratory Results - last 24 hr 08/06/21 08/07/21 08/07/21 19:49 03:16 06:21 WBC 12.6 H 12.0 H RBC 3.57 L 3.68 L Hgb 10.4 L 10.4 L Hct 30.7 L 31.8 L MCV 86.0 86.4 MCH 29.1 28.3 MCHC 33.9 32.7 RDW 16.1 H 16.0 Plt Count 270 268 MPV 9.9 9.4 Immature Gran % (Auto) 0.4 Neut % (Auto) 88.0 H Lymph % (Auto) 3.7 L [place] % (Auto) 7.4 Eos % (Auto) 0.4 Baso % (Auto) 0.1 Lymph # (Auto) 0.5 L [place] # (Auto) 0.9 Eos # (Auto) 0.1 Baso # (Auto) 0.0 Abs Immat Gran (auto) 0.05 H Absolute Neuts (auto) 11.1 H Absolute Nucleated RBC 0.000 0.000 Nucleated RBC % (auto) 0.0 0.0 PT INR Sodium Potassium Chloride Carbon Dioxide Anion Gap BUN Creatinine Estim Creat Clear Calc Estimated GFR POC Glucose 148 H Fasting Glucose Calcium 08/07/21 08/07/21 08/07/21 06:21 07:21 07:52 WBC RBC Hgb Hct MCV MCH MCHC RDW Plt Count MPV Immature Gran % (Auto) Neut % (Auto) Lymph % (Auto) [place] % (Auto) Eos % (Auto) Baso % (Auto) Lymph # (Auto) [place] # (Auto) Eos # (Auto) Baso # (Auto) Abs Immat Gran (auto) Absolute Neuts (auto) Absolute Nucleated RBC Nucleated RBC % (auto) PT 32.2 H INR 2.8 H Sodium 134 L Potassium 3.1 L Chloride 92 L Carbon Dioxide 30 H Anion Gap 15 BUN 115 H Creatinine 2.42 H Estim Creat Clear Calc 44.7 Estimated GFR 28 POC Glucose 154 H Fasting Glucose 152 H Calcium 8.3 L 08/07/21 08/07/21 11:41 15:34 WBC RBC Hgb Hct MCV MCH MCHC RDW Plt Count MPV Immature Gran % (Auto) Neut % (Auto) Lymph % (Auto) [place] % (Auto) Eos % (Auto) Baso % (Auto) Lymph # (Auto) [place] # (Auto) Eos # (Auto) Baso # (Auto) Abs Immat Gran (auto) Absolute Neuts (auto) Absolute Nucleated RBC Nucleated RBC % (auto) PT INR Sodium Potassium Chloride Carbon Dioxide Anion Gap BUN Creatinine Estim Creat Clear Calc Estimated GFR POC Glucose 120 H 128 H Fasting Glucose Calcium Progress Note: A&P Assessment and plan (1) Intermittent gross hematuria: Status: Acute (2) Urinary retention with incomplete bladder emptying: Status: Acute Plan continue Camilo catheter with catheter plug Fall Risk Details Current Medications: Current Medications Acetaminophen (Acetaminophen 325 Mg Tablet) 650 mg PO Q6H PRN PRN Reason: Pain, Mild (Pain Scale 1-3) Last Admin: 08/06/21 22:16 Dose: 650 mg Documented by: Al Hydroxide/Mg Hydroxide (Magnesium Hydrox/Alum Hydrox 30 Ml Oral.Susp) 30 ml PO Q4H PRN PRN Reason: heartbirun Last Admin: 07/19/21 00:23 Dose: 30 ml Documented by: Amitriptyline HCl (Amitriptyline Hcl 50 Mg Tablet) 150 mg PO BEDTIME [facility] Last Admin: 08/06/21 20:52 Dose: 150 mg Documented by: Amitriptyline HCl (Amitriptyline Hcl 50 Mg Tablet) 50 mg PO DAILY [facility] Last Admin: 08/07/21 08:13 Dose: 50 mg Documented by: Ascorbic Acid (Ascorbic Acid 500 Mg Tablet) 500 mg PO DAILY [facility] Last Admin: 08/07/21 08:12 Dose: 500 mg Documented by: Atorvastatin Calcium (Atorvastatin Calcium 80 Mg Tablet) 80 mg PO DAILY [facility] Last Admin: 08/07/21 08:12 Dose: 80 mg Documented by: Bismuth Subsalicylate (Bismuth Subsalicylate Liquid 524 Mg/30 Ml Oral.Susp) 524 mg PO QID PRN PRN Reason: Indigestion Last Admin: 07/18/21 15:06 Dose: 524 mg Documented by: Dextrose (Dextrose 50 % 25 Gm/50 Ml Syringe) 25 gm IVPUSH Q15M PRN; Protocol PRN Reason: per Hypoglycemia Standing Ord. Docusate Sodium (Docusate Sodium 100 Mg Capsule) 100 mg PO DAILY PRN PRN Reason: Constipation Glucose (Glucose Gel 15 Gm Gel..Gram.) 15 gm PO Q15M PRN; Protocol PRN Reason: per Hypoglycemia Standing Ord. Hydralazine HCl (Hydralazine Hcl 25 Mg Tablet) 25 mg PO TID [facility]; Protocol Last Admin: 08/07/21 15:06 Dose: 25 mg Documented by: Hydromorphone HCl (Hydromorphone Hcl 1 Mg/Ml Syringe) 0.5 mg IVPUSH Q4H PRN; Protocol PRN Reason: Breakthrough Pain Last Admin: 08/07/21 17:36 Dose: 0.5 mg Documented by: Insulin Human Lispro (Insulin Lispro 100 Unit/Ml 3 Ml Vial) 0 unit SUBCUT QIDACHS [facility]; Protocol Last Admin: 08/07/21 17:28 Dose: 2 unit Documented by: Isosorbide Mononitrate (Isosorbide Mononitrate 60 Mg Tab.Er.24h) 60 mg PO DAILY [facility]; Protocol Last Admin: 08/07/21 08:13 Dose: 60 mg Documented by: Lactic Acid (Ammonium Lactate 12 % Cream 140 Gm Tube) 1 appl TOPICAL DAILY [facility]; Protocol Last Admin: 08/07/21 08:19 Dose: 1 appl Documented by: Metolazone (Metolazone 5 Mg Tablet) 5 mg PO DAILY [facility] Last Admin: 08/07/21 08:12 Dose: 5 mg Documented by: Metoprolol Succinate (Metoprolol Succinate Er 25 Mg Tab.Er.24h) 25 mg PO DAILY [facility]; Protocol Last Admin: 08/07/21 08:12 Dose: 25 mg Documented by: Omeprazole (Omeprazole 40 Mg Capsule.Dr) 40 mg PO BID@0630,1630 [facility] Last Admin: 08/07/21 15:06 Dose: 40 mg Documented by: Ondansetron HCl (Ondansetron Hcl 4 Mg/2 Ml Vial) 4 mg IVPUSH Q8H PRN PRN Reason: Nausea and Vomiting Last Admin: 07/19/21 06:16 Dose: 4 mg Documented by: Pharmacy Consult (Consult Rx Perform Med Rec) 1 each MISCELLANE ONCE PRN PRN Reason: Consult order Potassium Chloride (Potassium Chloride Er 20 Meq Tab.Er.Prt) 40 meq PO DAILY@1230 [facility] Last Admin: 08/06/21 09:58 Dose: 40 meq Documented by: Potassium Chloride (Potassium Chloride Er 20 Meq Tab.Er.Prt) 20 meq PO BID [facility] Last Admin: 08/07/21 08:14 Dose: 20 meq Documented by: Sodium Chloride (0.9 % Sodium Chloride Flush 3 Ml Syringe) 3 ml IVFLUSH QSHIFT [facility] Last Admin: 08/07/21 15:09 Dose: 3 ml Documented by: Torsemide (Torsemide 20 Mg Tablet) 100 mg PO BID [facility]; Protocol Last Admin: 08/07/21 08:15 Dose: 100 mg Documented by: Warfarin Sodium (Warfarin Sodium 1 Mg Tablet) 1 mg PO DAILY@1800 [facility] Last Admin: 08/07/21 17:28 Dose: 1 mg Documented by: Time Spent With Patient Time: Total time spent is greater than 50% in coordination of care (as documented) at patient's floor/unit and/or counseling patient: Time with patient: less than 15 minutes Progress Note: Quality Stroke Does the patient have a stroke diagnosis?: No
[2021-08-07 19:44] LABS: Glucose, Whole Blood 152 mg/dL (60-115)
[2021-08-07] MEDS: Amitriptyline HCl 50 MG TABLET 150 MG PO (20:08)
[2021-08-08] VITALS (7 sets, daily range): BP systolic 102–131; BP diastolic 56–64; PULSE 68–82; RESP 14–18; TEMP 36–36.9; O2SAT 96–98
[2021-08-08] MEDS: HYDROmorphone HCl 1 MG/ML SYRINGE 0.5 MG IVPUSH ×2 (05:19→09:34)
[2021-08-08] MEDS: Omeprazole 40 MG CAPSULE.DR PO ×2 (05:31→15:21)
[2021-08-08 05:44] LABS: Hematocrit 30.4 % (42.0-52.0); Hemoglobin 9.9 g/dl (14.0-18.0); Mean Corpuscular HGB Conc 32.6 g/dl (31.0-36.0); Mean Corpuscular Hemoglobin 28.6 pg (27.0-33.0); Mean Corpuscular Volume 87.9 fL (80.0-98.0); Mean Platelet Volume 9.3 fL (9.4-12.4); Platelet Count 307 X10*3/uL (160-400); Red Blood Count 3.46 X10*6/uL (4.60-5.80); Red Cell Distribution Width 15.9 % (11.0-16.0); White Blood Count 9.1 X10*3/uL (4.8-10.8)
[2021-08-08 05:50] LABS: INTERNATIONAL NORM RATIO 3.2 (0.9-1.1); Prothrombin Time 37.8 SEC (9.9-13.0)
[2021-08-08 06:20] LABS: Anion Gap 17 (12-20); Blood Urea Nitrogen 119 mg/dL (9-16); Calcium 8.3 mg/dL (8.4-10.2); Carbon Dioxide 32 mmol/L (22-29); Chloride 91 mmol/L (96-108); Creatinine Clr Calc Pharmacy 42.4; Estimated Glomerular Filt Rate 26; Glucose Fasting 127 mg/dL (60-99); Potassium 3.5 mmol/L (3.3-5.1); Sodium 136 mmol/L (135-145)
[2021-08-08 07:50] LABS: Glucose, Whole Blood 128 mg/dL (60-115)
--- NOTE | 2021-08-08 08:50 | HO.PM.IMPN ---
Subjective Subjective Date of Service: 08/08/21 Interval History: continues to have bleeding around urinary catheter, failed voiding trial anasarca improved Cardiovascular Cardiovascular: Reports no additional cardiovascular complaints Respiratory Respiratory: Reports no additional respiratory complaints Physical Exam Vital Signs: Vital Signs: Last Vital Signs Temp 97.8 F 08/08/21 07:21 Pulse 77 08/08/21 07:21 Resp 18 08/08/21 07:21 BP 131/56 L 08/08/21 07:21 Pulse Ox 98 08/08/21 07:21 Oxygen Flow Rate 3 07/22/21 04:00 BMI result Body Mass Index 39.2 General: AO X 3, no acute distress Resp:? CTA bilateral, no accessory muscles used CVS: S1,S2,RRR, systolic murmur : blood around catheter, improved edema GI: soft, non tender, non distended Neuro:? motor grossly intact, alert Psych: appropriate affect, appropriate insight? Objective Data Active Medications Acetaminophen (Acetaminophen 325 Mg Tablet) 650 mg PO Q6H PRN PRN Reason: Pain, Mild (Pain Scale 1-3) Last Admin: 08/06/21 22:16 Dose: 650 mg Documented by: ABIGAIL Al Hydroxide/Mg Hydroxide (Magnesium Hydrox/Alum Hydrox 30 Ml Oral.Susp) 30 ml PO Q4H PRN PRN Reason: heartbirun Last Admin: 07/19/21 00:23 Dose: 30 ml Documented by: GIL Amitriptyline HCl (Amitriptyline Hcl 50 Mg Tablet) 150 mg PO BEDTIME [facility] Last Admin: 08/07/21 20:08 Dose: 150 mg Documented by: ABIGAIL Amitriptyline HCl (Amitriptyline Hcl 50 Mg Tablet) 50 mg PO DAILY [facility] Last Admin: 08/07/21 08:13 Dose: 50 mg Documented by: SHARAD Ascorbic Acid (Ascorbic Acid 500 Mg Tablet) 500 mg PO DAILY [facility] Last Admin: 08/07/21 08:12 Dose: 500 mg Documented by: SHARAD Atorvastatin Calcium (Atorvastatin Calcium 80 Mg Tablet) 80 mg PO DAILY [facility] Last Admin: 08/07/21 08:12 Dose: 80 mg Documented by: SHARAD Bismuth Subsalicylate (Bismuth Subsalicylate Liquid 524 Mg/30 Ml Oral.Susp) 524 mg PO QID PRN PRN Reason: Indigestion Last Admin: 07/18/21 15:06 Dose: 524 mg Documented by: LORE Dextrose (Dextrose 50 % 25 Gm/50 Ml Syringe) 25 gm IVPUSH Q15M PRN; Protocol PRN Reason: per Hypoglycemia Standing Ord. Docusate Sodium (Docusate Sodium 100 Mg Capsule) 100 mg PO DAILY PRN PRN Reason: Constipation Glucose (Glucose Gel 15 Gm Gel..Gram.) 15 gm PO Q15M PRN; Protocol PRN Reason: per Hypoglycemia Standing Ord. Hydralazine HCl (Hydralazine Hcl 25 Mg Tablet) 25 mg PO TID [facility]; Protocol Last Admin: 08/07/21 20:08 Dose: 25 mg Documented by: ABIGAIL Hydromorphone HCl (Hydromorphone Hcl 1 Mg/Ml Syringe) 0.5 mg IVPUSH Q4H PRN; Protocol PRN Reason: Breakthrough Pain Last Admin: 08/08/21 05:19 Dose: 0.5 mg Documented by: KAIN Insulin Human Lispro (Insulin Lispro 100 Unit/Ml 3 Ml Vial) 0 unit SUBCUT QIDACHS [facility]; Protocol Last Admin: 08/08/21 08:46 Dose: Not Given Documented by: JAVIER Non-Admin Reason: No Insulin Coverage Isosorbide Mononitrate (Isosorbide Mononitrate 60 Mg Tab.Er.24h) 60 mg PO DAILY [facility]; Protocol Last Admin: 08/07/21 08:13 Dose: 60 mg Documented by: SHARAD Lactic Acid (Ammonium Lactate 12 % Cream 140 Gm Tube) 1 appl TOPICAL DAILY [facility]; Protocol Last Admin: 08/07/21 08:19 Dose: 1 appl Documented by: SHARAD Metolazone (Metolazone 5 Mg Tablet) 5 mg PO DAILY [facility] Last Admin: 08/07/21 08:12 Dose: 5 mg Documented by: SHARAD Metoprolol Succinate (Metoprolol Succinate Er 25 Mg Tab.Er.24h) 25 mg PO DAILY [facility]; Protocol Last Admin: 08/07/21 08:12 Dose: 25 mg Documented by: SHARAD Omeprazole (Omeprazole 40 Mg Capsule.Dr) 40 mg PO BID@0630,1630 [facility] Last Admin: 08/08/21 05:31 Dose: 40 mg Documented by: KIAN Ondansetron HCl (Ondansetron Hcl 4 Mg/2 Ml Vial) 4 mg IVPUSH Q8H PRN PRN Reason: Nausea and Vomiting Last Admin: 07/19/21 06:16 Dose: 4 mg Documented by: GIL Pharmacy Consult (Consult Rx Perform Med Rec) 1 each MISCELLANE ONCE PRN PRN Reason: Consult order Potassium Chloride (Potassium Chloride Er 20 Meq Tab.Er.Prt) 40 meq PO DAILY@1230 [facility] Last Admin: 08/06/21 09:58 Dose: 40 meq Documented by: SHARAD Potassium Chloride (Potassium Chloride Er 20 Meq Tab.Er.Prt) 20 meq PO BID [facility] Last Admin: 08/07/21 20:08 Dose: 20 meq Documented by: ABIGAIL Sodium Chloride (0.9 % Sodium Chloride Flush 3 Ml Syringe) 3 ml IVFLUSH QSHIFT [facility] Last Admin: 08/07/21 20:09 Dose: 3 ml Documented by: ABIGAIL Torsemide (Torsemide 20 Mg Tablet) 100 mg PO BID [facility]; Protocol Last Admin: 08/07/21 20:08 Dose: 100 mg Documented by: ABIGAIL Warfarin Sodium (Warfarin Sodium 1 Mg Tablet) 1 mg PO DAILY@1800 [facility] Last Admin: 08/07/21 17:28 Dose: 1 mg Documented by: SHARAD Labs CBC & Chem 7: 08/08/21 05:26 08/08/21 05:26 Labs: Laboratory Results - last 24 hr 08/07/21 08/07/21 08/07/21 11:41 15:34 19:16 MCV MCH MCHC RDW Plt Count MPV Absolute Nucleated RBC Nucleated RBC % (auto) PT INR Anion Gap Estim Creat Clear Calc Estimated GFR POC Glucose 120 H 128 H 152 H Fasting Glucose Calcium 08/08/21 08/08/21 08/08/21 05:26 05:26 05:26 MCV 87.9 MCH 28.6 MCHC 32.6 RDW 15.9 Plt Count 307 MPV 9.3 L Absolute Nucleated RBC 0.000 Nucleated RBC % (auto) 0.0 PT 37.8 H INR 3.2 H Anion Gap 17 Estim Creat Clear Calc 42.4 Estimated GFR 26 POC Glucose Fasting Glucose 127 H Calcium 8.3 L 08/08/21 07:19 MCV MCH MCHC RDW Plt Count MPV Absolute Nucleated RBC Nucleated RBC % (auto) PT INR Anion Gap Estim Creat Clear Calc Estimated GFR POC Glucose 128 H Fasting Glucose Calcium Assessment and Plan (1) Acute blood loss anemia (ABLA): Status: Acute (2) Pulmonary hypertension: Status: Acute (3) Permanent atrial fibrillation: Status: Acute (4) Acute on chronic diastolic HF (heart failure): Status: Acute (5) Gross hematuria: Status: Acute Plan 61yo M with HTN, HFpEF with cardioMEMS device in place, HLD, CAD, DM2, DARLENE, severe pHTN, AF on warfarin, CKD3-4, hx CVA, polycythemic vera, chronic hypoxic respiratory failure on 2L recent admission to [facility] for CHF exacerbation presenting with nausea/vomiting, dizziness acute on chronic HFpEF diuresed almost 25L druing this hospital stay TTE 07/07/20 LVEF 50%, no RWMA, mild , mod pulm HTN off bumex drip Continue metolazone 5 mg daily Continue Torsemide home dose follow BMP and BNP Acute blood loss anemia 2/2 hematuria/scrotal swelling Hemoglobin dropped to almost 11 from baseline of 14, no transfusion needed at this point Keep scrotum elevated hematuria was likely due to traumatic Mcknight placement while on anticoagulation failed voiding trial 2/, mcknight reinserted, continues to bleed, though hgb has been stable permanent AF continue metoprolol; d/montez digoxin due to CKD, Coumadin keep INR 2-2.5 CKD4 stable acute pontine CVA Improved conitnue statin coumadin hypoK continue potassium 40meq at lunch, 20meq am and pm for 80meq total monitor nausea/vomiting with 1 episode blood-streaked vomitus Brinda-Reyes tear.? has not recurred since admission s/p IV Protonix, now on oral PPI, repeat hematocrit is stable chronic hypoxic respiratory failure on 2L at home DM2 with hypyerglycemia, A1c 8.6 blood sugar stable, on correction-dose lispro.? on U-500 + Trulicity at home.? Continue diabetic diet and insulin sliding scale. CAD episode of chest pain resolved, troponins flat, continue statin, metoprolol, Imdur HTN stable blood pressure on metoprolol, low-dose hydralazine, Imdur, (amlodipine discontinued) morbid obesity outpt bariatrics evaluation can be considered DARLENE continue CPAP at bedtime and during naps VTE ppx on warfari dispo plan home with VNA Quality Stroke Does the patient have a stroke diagnosis?: No VTE Prior VTE?: No VTE Risk Level:: Medical - moderate - high VTE Device Contraindication: N/A - Device Ordered VTE Drug Contraindication: Treatment Not Indicated
[2021-08-08] MEDS: Metoprolol Succinate ER 25 MG TAB.ER.24H PO (09:02)
[2021-08-08] MEDS: metOLazone 5 MG TABLET PO (09:02)
[2021-08-08] MEDS: Amitriptyline HCl 50 MG TABLET PO (09:02)
[2021-08-08] MEDS: Isosorbide Mononitrate 60 MG TAB.ER.24H PO (09:02)
[2021-08-08] MEDS: Torsemide 20 MG TABLET 100 MG PO ×2 (09:02→20:23)
[2021-08-08] MEDS: Atorvastatin Calcium 80 MG TABLET PO (09:02)
[2021-08-08] MEDS: Potassium Chloride ER 20 MEQ TAB.ER.PRT PO ×2 (09:02→20:23)
[2021-08-08] MEDS: Ascorbic Acid 500 MG TABLET PO (09:02)
[2021-08-08] MEDS: hydrALAZINE HCl 25 MG TABLET PO ×3 (09:02→20:23)
[2021-08-08] MEDS: 0.9 % Sodium Chloride Flush 3 ML SYRINGE IVFLUSH ×3 (09:03→23:54)
[2021-08-08] MEDS: Ammonium Lactate 12 % Cream 140 GM TUBE 1 APPL TOPICAL (09:03)
--- NOTE | 2021-08-08 09:44 | PC.NURSE ---
Skin/wound assessment completed. Patient has slowly healing stage 2 pressure ulcer to bilateral buttocks. Triad. nopn Dry skin to lower extremities with ammonium lacatate cream applied.
--- NOTE | 2021-08-08 11:17 | MHC.CLN ---
F/U BUN AND Cr WITH UPWARD TREND. NOW CKD4. DIET=DIABETIC 2000 KCAL, 2 G SODIUM. STAGE II WOUND TO BILATERAL BUTTOCKS. GLUCERNA SUPPLEMENT BID PROVIDES 474 KCAL, 20 G PROTEIN TO PROMOTE WOUND HEALING. DECREASED INTAKE X 2 DAYS WITH 3 MEALS=0, 1 MEAL=50%, 2 BEJTO=134%. FAVORABLE WEIGHT LOSS NOTED WITH DIURESIS. CONTINUE TO FOLLOW LABS, INTAKE, AND WOUND.
[2021-08-08 11:33] LABS: Glucose, Whole Blood 165 mg/dL (60-115)
[2021-08-08] MEDS: Potassium Chloride ER 20 MEQ TAB.ER.PRT 40 MEQ PO (12:06)
[2021-08-08] MEDS: Insulin Lispro 100 UNIT/ML 3 ML VIAL SUBCUT ×3 (12:06→20:22)
[2021-08-08] MEDS: HYDROmorphone HCl 2 MG TABLET 1 MG PO ×2 (14:23→22:03)
[2021-08-08 16:01] LABS: Glucose, Whole Blood 163 mg/dL (60-115)
[2021-08-08 20:04] LABS: Glucose, Whole Blood 176 mg/dL (60-115)
[2021-08-08] MEDS: Amitriptyline HCl 50 MG TABLET 150 MG PO (20:23)
--- NOTE | 2021-08-08 22:28 | PC.NURSE ---
unplugged Camilo at 1830,it drained freely 250 of bloody urine
--- NOTE | 2021-08-08 22:29 | PC.NURSE ---
P patient c/o pain in lower abdomen,scrotal area I unplugged mcknight ,not draining,hand irrigated mcknight with 30 ml of sterile saline,no clots obtained ,started draining freely bloody urine,800 ml total,medicated patient for pain E will monitor,patient feels better
[2021-08-09] VITALS (7 sets, daily range): BP systolic 105–139; BP diastolic 49–69; PULSE 66–81; RESP 16–18; TEMP 35.9–37; O2SAT 93–98
[2021-08-09 05:44] LABS: Hematocrit 26.4 % (42.0-52.0); Hemoglobin 8.5 g/dl (14.0-18.0); Mean Corpuscular HGB Conc 32.2 g/dl (31.0-36.0); Mean Corpuscular Hemoglobin 28.1 pg (27.0-33.0); Mean Corpuscular Volume 87.1 fL (80.0-98.0); Mean Platelet Volume 9.3 fL (9.4-12.4); Platelet Count 274 X10*3/uL (160-400); Red Blood Count 3.03 X10*6/uL (4.60-5.80); Red Cell Distribution Width 16.1 % (11.0-16.0); White Blood Count 7.5 X10*3/uL (4.8-10.8)
[2021-08-09 05:51] LABS: INTERNATIONAL NORM RATIO 2.9 (0.9-1.1); Prothrombin Time 34.1 SEC (9.9-13.0)
[2021-08-09 06:04] LABS: Anion Gap 11 (12-20); Blood Urea Nitrogen 120 mg/dL (9-16); Carbon Dioxide 33 mmol/L (22-29); Chloride 91 mmol/L (96-108); Creatinine Clr Calc Pharmacy 40.6; Estimated Glomerular Filt Rate 25; Glucose Fasting 151 mg/dL (60-99); Potassium 3.3 mmol/L (3.3-5.1); Sodium 132 mmol/L (135-145)
[2021-08-09] MEDS: Omeprazole 40 MG CAPSULE.DR PO ×2 (06:08→15:44)
--- NOTE | 2021-08-09 06:13 | PC.NURSE ---
PATIENT CONTINUES WITH A PERDUE CATHETER, HOWEVER, CATHETER IS CLAMPED AND DRAINED EVERY 4 HOURS. CATHETER UNCAPPED AT 0210 FOR 300ML GROSS HEMATURIA WITHOUT CLOTS AND DRAINED FREELY. CATHETER UNCAPPED AT 0610 AND 600ML GROSS HEMATURIA DRAINED SLOWLY. IRRIGATED WHEN STREAM SEEMED TO STOP AND PATIENT STATED STILL FELT SOME BLADDER PRESSURE, BUT NO SHREDS OR CLOTS PRESENT, TOLERATED WELL, JUST ALLOWED TIME FOR COMPLETE EMPTYING. INSTILLED 30ML AND WITHDREW SAME AMOUNT. PT DENIED ANY DISCOMFORT AFTER DRAINING, TOOK AM MEDICINE, REPOSITIONED WITH ASSIST OF 2, AND CPAP REAPPLIED.
[2021-08-09 07:30] LABS: Glucose, Whole Blood 141 mg/dL (60-115)
[2021-08-09] MEDS: Insulin Lispro 100 UNIT/ML 3 ML VIAL SUBCUT ×4 (08:13→21:06)
[2021-08-09] MEDS: Torsemide 20 MG TABLET 100 MG PO ×2 (08:13→21:07)
[2021-08-09] MEDS: HYDROmorphone HCl 2 MG TABLET 1 MG PO ×2 (08:14→19:26)
[2021-08-09] MEDS: Metoprolol Succinate ER 25 MG TAB.ER.24H PO (08:14)
[2021-08-09] MEDS: Isosorbide Mononitrate 60 MG TAB.ER.24H PO (08:14)
[2021-08-09] MEDS: Atorvastatin Calcium 80 MG TABLET PO (08:14)
[2021-08-09] MEDS: metOLazone 5 MG TABLET PO (08:14)
[2021-08-09] MEDS: Ascorbic Acid 500 MG TABLET PO (08:14)
[2021-08-09] MEDS: hydrALAZINE HCl 25 MG TABLET PO ×3 (08:14→21:07)
[2021-08-09] MEDS: Amitriptyline HCl 50 MG TABLET PO (08:14)
[2021-08-09] MEDS: 0.9 % Sodium Chloride Flush 3 ML SYRINGE IVFLUSH ×2 (08:15→15:45)
[2021-08-09] MEDS: Ammonium Lactate 12 % Cream 140 GM TUBE 1 APPL TOPICAL (08:15)
[2021-08-09] MEDS: Potassium Chloride ER 20 MEQ TAB.ER.PRT PO ×2 (08:15→21:07)
--- NOTE | 2021-08-09 09:15 | P.PNIM_ITS ---
Subjective Subjective Date of Service: 08/09/21 Interval History: continues to have hematuria and oozing aroud catheter Cardiovascular Cardiovascular: Reports no additional cardiovascular complaints Respiratory Respiratory: Reports no additional respiratory complaints Physical Exam Vital Signs: Vital Signs: Last Vital Signs Temp 97.7 F 08/09/21 07:12 Pulse 66 08/09/21 07:12 Resp 16 08/09/21 07:12 BP 107/53 L 08/09/21 07:12 Pulse Ox 96 08/09/21 07:12 Oxygen Flow Rate 3 07/22/21 04:00 BMI result Body Mass Index 39.2 General: AO X 3, no acute distress Resp:? CTA bilateral, no accessory muscles used CVS: S1,S2,RRR, systolic murmur : blood around catheter, improved edema GI: soft, non tender, non distended Neuro:? motor grossly intact, alert Psych: appropriate affect, appropriate insight? Objective Data Active Medications Acetaminophen (Acetaminophen 325 Mg Tablet) 650 mg PO Q6H PRN PRN Reason: Pain, Mild (Pain Scale 1-3) Last Admin: 08/06/21 22:16 Dose: 650 mg Documented by: ABIGAIL Al Hydroxide/Mg Hydroxide (Magnesium Hydrox/Alum Hydrox 30 Ml Oral.Susp) 30 ml PO Q4H PRN PRN Reason: heartbirun Last Admin: 07/19/21 00:23 Dose: 30 ml Documented by: GIL Amitriptyline HCl (Amitriptyline Hcl 50 Mg Tablet) 150 mg PO BEDTIME [facility] Last Admin: 08/08/21 20:23 Dose: 150 mg Documented by: OMMO Amitriptyline HCl (Amitriptyline Hcl 50 Mg Tablet) 50 mg PO DAILY [facility] Last Admin: 08/09/21 08:14 Dose: 50 mg Documented by: JAVIER Ascorbic Acid (Ascorbic Acid 500 Mg Tablet) 500 mg PO DAILY [facility] Last Admin: 08/09/21 08:14 Dose: 500 mg Documented by: JAVIER Atorvastatin Calcium (Atorvastatin Calcium 80 Mg Tablet) 80 mg PO DAILY [facility] Last Admin: 08/09/21 08:14 Dose: 80 mg Documented by: JAVIER Bismuth Subsalicylate (Bismuth Subsalicylate Liquid 524 Mg/30 Ml Oral.Susp) 524 mg PO QID PRN PRN Reason: Indigestion Last Admin: 07/18/21 15:06 Dose: 524 mg Documented by: LORE Dextrose (Dextrose 50 % 25 Gm/50 Ml Syringe) 25 gm IVPUSH Q15M PRN; Protocol PRN Reason: per Hypoglycemia Standing Ord. Docusate Sodium (Docusate Sodium 100 Mg Capsule) 100 mg PO DAILY PRN PRN Reason: Constipation Glucose (Glucose Gel 15 Gm Gel..Gram.) 15 gm PO Q15M PRN; Protocol PRN Reason: per Hypoglycemia Standing Ord. Hydralazine HCl (Hydralazine Hcl 25 Mg Tablet) 25 mg PO TID [facility]; Protocol Last Admin: 08/09/21 08:14 Dose: 25 mg Documented by: JAVIER Hydromorphone HCl (Hydromorphone Hcl 2 Mg Tablet) 1 mg PO Q4H PRN PRN Reason: moderate pain Last Admin: 08/09/21 08:14 Dose: 1 mg Documented by: JAVIER Insulin Human Lispro (Insulin Lispro 100 Unit/Ml 3 Ml Vial) 0 unit SUBCUT QIDACHS [facility]; Protocol Last Admin: 08/09/21 08:13 Dose: 2 unit Documented by: JAVIER Isosorbide Mononitrate (Isosorbide Mononitrate 60 Mg Tab.Er.24h) 60 mg PO DAILY [facility]; Protocol Last Admin: 08/09/21 08:14 Dose: 60 mg Documented by: JAVIER Lactic Acid (Ammonium Lactate 12 % Cream 140 Gm Tube) 1 appl TOPICAL DAILY [facility]; Protocol Last Admin: 08/09/21 08:15 Dose: 1 appl Documented by: JAVIER Metolazone (Metolazone 5 Mg Tablet) 5 mg PO DAILY [facility] Last Admin: 08/09/21 08:14 Dose: 5 mg Documented by: JAVIER Metoprolol Succinate (Metoprolol Succinate Er 25 Mg Tab.Er.24h) 25 mg PO DAILY [facility]; Protocol Last Admin: 08/09/21 08:14 Dose: 25 mg Documented by: JAVIER Omeprazole (Omeprazole 40 Mg Capsule.) 40 mg PO BID@0630,1630 [facility] Last Admin: 08/09/21 06:08 Dose: 40 mg Documented by: KIAN Ondansetron HCl (Ondansetron Hcl 4 Mg/2 Ml Vial) 4 mg IVPUSH Q8H PRN PRN Reason: Nausea and Vomiting Last Admin: 07/19/21 06:16 Dose: 4 mg Documented by: GIL Pharmacy Consult (Consult Rx Perform Med Rec) 1 each MISCELLANE ONCE PRN PRN Reason: Consult order Potassium Chloride (Potassium Chloride Er 20 Meq Tab.Er.Prt) 40 meq PO DAILY@1230 [facility] Last Admin: 08/08/21 12:06 Dose: 40 meq Documented by: JAVIER Potassium Chloride (Potassium Chloride Er 20 Meq Tab.Er.Prt) 20 meq PO BID [facility] Last Admin: 08/09/21 08:15 Dose: 20 meq Documented by: JAVIER Comments: BARCODE TORN IN CORNER Sodium Chloride (0.9 % Sodium Chloride Flush 3 Ml Syringe) 3 ml IVFLUSH QSHIFT [facility] Last Admin: 08/09/21 08:15 Dose: 3 ml Documented by: JAVIER Torsemide (Torsemide 20 Mg Tablet) 100 mg PO BID [facility]; Protocol Last Admin: 08/09/21 08:13 Dose: 100 mg Documented by: JAVIER Warfarin Sodium (Warfarin Sodium 1 Mg Tablet) 1 mg PO DAILY@1800 [facility] Last Admin: 08/07/21 17:28 Dose: 1 mg Documented by: SHARAD Labs CBC & Chem 7: 08/09/21 05:20 08/09/21 05:20 Labs: Laboratory Results - last 24 hr 08/08/21 08/08/21 08/08/21 11:20 15:27 19:30 MCV MCH MCHC RDW Plt Count MPV Absolute Nucleated RBC Nucleated RBC % (auto) PT INR Anion Gap Estim Creat Clear Calc Estimated GFR POC Glucose 165 H 163 H 176 H Fasting Glucose Calcium 08/09/21 08/09/21 08/09/21 05:20 05:20 05:20 MCV 87.1 MCH 28.1 MCHC 32.2 RDW 16.1 H Plt Count 274 MPV 9.3 L Absolute Nucleated RBC 0.000 Nucleated RBC % (auto) 0.0 PT 34.1 H INR 2.9 H Anion Gap 11 L Estim Creat Clear Calc 40.6 Estimated GFR 25 POC Glucose Fasting Glucose 151 H Calcium 8.0 L 08/09/21 07:10 MCV MCH MCHC RDW Plt Count MPV Absolute Nucleated RBC Nucleated RBC % (auto) PT INR Anion Gap Estim Creat Clear Calc Estimated GFR POC Glucose 141 H Fasting Glucose Calcium Assessment and Plan (1) Acute blood loss anemia (ABLA): Status: Acute (2) Pulmonary hypertension: Status: Acute (3) Permanent atrial fibrillation: Status: Acute (4) Acute on chronic diastolic HF (heart failure): Status: Acute (5) Gross hematuria: Status: Acute Plan 61yo M with HTN, HFpEF with cardioMEMS device in place, HLD, CAD, DM2, DARLENE, severe pHTN, AF on warfarin, CKD3-4, hx CVA, polycythemic vera, chronic hypoxic respiratory failure on 2L recent admission to [facility] for CHF exacerbation presenting with nausea/vomiting, dizziness acute on chronic HFpEF diuresed almost 25L druing this hospital stay TTE 07/07/20 LVEF 50%, no RWMA, mild , mod pulm HTN off bumex drip Continue metolazone 5 mg daily Continue Torsemide home dose follow BMP and BNP Acute blood loss anemia 2/2 hematuria/scrotal swelling Hemoglobin dropped further, now at 8.5, no transfusion needed at this point, continue to monitor Keep scrotum elevated hematuria was likely due to traumatic Mcknight placement while on anticoagulation failed voiding trial 08/06, mcknight reinserted, continues to bleed, though hgb has been stable d/w urogoly plan for capping with intermittent drainage permanent AF continue metoprolol; d/montez digoxin due to CKD, Coumadin keep INR 2-2.5 CKD4 stable acute pontine CVA Improved conitnue statin coumadin hypoK continue potassium 40meq at lunch, 20meq am and pm for 80meq total monitor nausea/vomiting with 1 episode blood-streaked vomitus Brinda-Reyes tear.? has not recurred since admission s/p IV Protonix, now on oral PPI, repeat hematocrit is stable chronic hypoxic respiratory failure on 2L at home DM2 with hypyerglycemia, A1c 8.6 blood sugar stable, on correction-dose lispro.? on U-500 + Trulicity at home.? Continue diabetic diet and insulin sliding scale. CAD episode of chest pain resolved, troponins flat, continue statin, metoprolol, Imdur HTN stable blood pressure on metoprolol, low-dose hydralazine, Imdur, (amlodipine discontinued) morbid obesity outpt bariatrics evaluation can be considered DARLENE continue CPAP at bedtime and during naps VTE ppx on warfari dispo plan home with VNA Quality Stroke Does the patient have a stroke diagnosis?: No VTE Prior VTE?: No VTE Risk Level:: Medical - moderate - high VTE Device Contraindication: N/A - Device Ordered VTE Drug Contraindication: Treatment Not Indicated
[2021-08-09 11:39] LABS: Glucose, Whole Blood 235 mg/dL (60-115)
[2021-08-09] MEDS: Potassium Chloride ER 20 MEQ TAB.ER.PRT 40 MEQ PO (11:55)
[2021-08-09 15:53] LABS: Glucose, Whole Blood 165 mg/dL (60-115)
[2021-08-09 19:40] LABS: Glucose, Whole Blood 185 mg/dL (60-115)
[2021-08-09] MEDS: Amitriptyline HCl 50 MG TABLET 150 MG PO (21:07)
[2021-08-10] VITALS (9 sets, daily range): BP systolic 96–113; BP diastolic 48–74; PULSE 66–82; RESP 14–20; TEMP 36.1–36.6; O2SAT 86–99
[2021-08-10] MEDS: 0.9 % Sodium Chloride Flush 3 ML SYRINGE IVFLUSH ×3 (00:17→17:16)
[2021-08-10] MEDS: Omeprazole 40 MG CAPSULE.DR PO ×2 (05:58→17:15)
[2021-08-10 06:01] LABS: Hematocrit 24.6 % (42.0-52.0); Mean Corpuscular HGB Conc 32.5 g/dl (31.0-36.0); Mean Corpuscular Hemoglobin 28.4 pg (27.0-33.0); Mean Corpuscular Volume 87.2 fL (80.0-98.0); Mean Platelet Volume 9.6 fL (9.4-12.4); Platelet Count 268 X10*3/uL (160-400); Red Blood Count 2.82 X10*6/uL (4.60-5.80); Red Cell Distribution Width 16.3 % (11.0-16.0); White Blood Count 8.4 X10*3/uL (4.8-10.8)
[2021-08-10 06:14] LABS: INTERNATIONAL NORM RATIO 2.2 (0.9-1.1); Prothrombin Time 25.4 SEC (9.9-13.0)
[2021-08-10 06:31] LABS: Anion Gap 15 (12-20); Blood Urea Nitrogen 124 mg/dL (9-16); Calcium 7.8 mg/dL (8.4-10.2); Carbon Dioxide 30 mmol/L (22-29); Chloride 92 mmol/L (96-108); Creatinine Clr Calc Pharmacy 36.8; Estimated Glomerular Filt Rate 22; Glucose Fasting 168 mg/dL (60-99); Potassium 3.7 mmol/L (3.3-5.1); Sodium 133 mmol/L (135-145)
[2021-08-10 07:36] LABS: Glucose, Whole Blood 160 mg/dL (60-115)
[2021-08-10] MEDS: Insulin Lispro 100 UNIT/ML 3 ML VIAL SUBCUT ×4 (09:17→20:13)
[2021-08-10] MEDS: HYDROmorphone HCl 2 MG TABLET 1 MG PO (09:17)
[2021-08-10] MEDS: metOLazone 5 MG TABLET PO (09:18)
[2021-08-10] MEDS: Amitriptyline HCl 50 MG TABLET PO (09:18)
[2021-08-10] MEDS: Atorvastatin Calcium 80 MG TABLET PO (09:18)
[2021-08-10] MEDS: hydrALAZINE HCl 25 MG TABLET PO ×2 (09:18→20:04)
[2021-08-10] MEDS: Metoprolol Succinate ER 25 MG TAB.ER.24H PO (09:18)
[2021-08-10] MEDS: Isosorbide Mononitrate 60 MG TAB.ER.24H PO (09:18)
[2021-08-10] MEDS: Potassium Chloride ER 20 MEQ TAB.ER.PRT PO ×2 (09:18→20:19)
[2021-08-10] MEDS: Torsemide 20 MG TABLET 100 MG PO ×2 (09:18→20:09)
[2021-08-10] MEDS: Ascorbic Acid 500 MG TABLET PO (09:18)
[2021-08-10] MEDS: Ammonium Lactate 12 % Cream 140 GM TUBE 1 APPL TOPICAL (09:19)
--- NOTE | 2021-08-10 09:23 | MHC.CLN ---
F/U LABS 08/10 WITH TZZ=342; Cr=2.94. CONTINUES UPWARD TREND. DX CKD4. DIET=DIABETIC 2000 KCAL, 2 G SODIUM. STAGE II WOUND TO BILATERAL BUTTOCKS. DISCONTINUE GLUCERNA SUPPLEMENT WHICH PROVIDES 20 G PROTEIN. MOST RECENT INTAKE PATTERN SHOWS DINNER USUALLY 100%. BREAKFAST AND LUNCH 0-59%. WEIGHT LOSS ANTICIPATED WITH DIURESIS. CONTINUE TO FOLLOW LABS, INTAKE, AND WOUND.
[2021-08-10 10:32] LABS: Iron 41 mcg/dL (45-160); Percent Iron Saturation 19 % (15-50); Total Iron Binding Capacity 212 mcg/dL (228-428); Unsaturated Iron Binding 171 ug/dL
--- NOTE | 2021-08-10 11:02 | HO.PM.IMPN ---
Subjective Subjective Date of Service: 08/10/21 Interval History: the patient was seen and evaluated this morning Still having hematuria, small amount of blood leaking around the Mcknight Drop in hemoglobin over the course of hospital stay No reported other overnight events. Systemic review: No fever, chills but has generalized weakness No chest pain, palpitation No shortness of breath or coughing No abdominal pain, nausea or vomiting Hematuria No any rash or wounds Physical Exam Vital Signs: Vital Signs: Last Vital Signs Temp 97.6 F 08/10/21 07:26 Pulse 80 08/10/21 07:26 Resp 18 08/10/21 07:26 BP 113/55 L 08/10/21 07:26 Pulse Ox 99 08/10/21 07:26 Oxygen Flow Rate 3 07/22/21 04:00 BMI result Body Mass Index 39.2 Const: Other: Gen:? Awake, alert in no acute distress Neck: supple, no increased JVD Lungs: Coarse breath sound, no wheeze, no crackles Heart: irregularly irregular, no murmurs Abd: soft, non-tender, non-distended, obese :? Resolving scrotal swelling , dry blood around Mcknight catheter, Mcknight with bloody urine Ext: venous stasis hyperpigmentation to shins, decreased edema in both thighs and back Skin: warm/well-perfused Neuro: alert and oriented x3, no focal findings Psych: appropriate affect Objective Data Active Medications Acetaminophen (Acetaminophen 325 Mg Tablet) 650 mg PO Q6H PRN PRN Reason: Pain, Mild (Pain Scale 1-3) Last Admin: 08/06/21 22:16 Dose: 650 mg Documented by: ABIGAIL Al Hydroxide/Mg Hydroxide (Magnesium Hydrox/Alum Hydrox 30 Ml Oral.Susp) 30 ml PO Q4H PRN PRN Reason: heartbirun Last Admin: 07/19/21 00:23 Dose: 30 ml Documented by: GIL Amitriptyline HCl (Amitriptyline Hcl 50 Mg Tablet) 150 mg PO BEDTIME [facility] Last Admin: 08/09/21 21:07 Dose: 150 mg Documented by: MOMO Amitriptyline HCl (Amitriptyline Hcl 50 Mg Tablet) 50 mg PO DAILY [facility] Last Admin: 08/10/21 09:18 Dose: 50 mg Documented by: JAVIER Ascorbic Acid (Ascorbic Acid 500 Mg Tablet) 500 mg PO DAILY [facility] Last Admin: 08/10/21 09:18 Dose: 500 mg Documented by: JAVIER Atorvastatin Calcium (Atorvastatin Calcium 80 Mg Tablet) 80 mg PO DAILY [facility] Last Admin: 08/10/21 09:18 Dose: 80 mg Documented by: JAVIER Bismuth Subsalicylate (Bismuth Subsalicylate Liquid 524 Mg/30 Ml Oral.Susp) 524 mg PO QID PRN PRN Reason: Indigestion Last Admin: 07/18/21 15:06 Dose: 524 mg Documented by: LORE Dextrose (Dextrose 50 % 25 Gm/50 Ml Syringe) 25 gm IVPUSH Q15M PRN; Protocol PRN Reason: per Hypoglycemia Standing Ord. Docusate Sodium (Docusate Sodium 100 Mg Capsule) 100 mg PO DAILY PRN PRN Reason: Constipation Glucose (Glucose Gel 15 Gm Gel..Gram.) 15 gm PO Q15M PRN; Protocol PRN Reason: per Hypoglycemia Standing Ord. Hydralazine HCl (Hydralazine Hcl 25 Mg Tablet) 25 mg PO TID [facility]; Protocol Last Admin: 08/10/21 09:18 Dose: 25 mg Documented by: JAVIER Hydromorphone HCl (Hydromorphone Hcl 2 Mg Tablet) 1 mg PO Q4H PRN PRN Reason: moderate pain Last Admin: 08/10/21 09:17 Dose: 1 mg Documented by: JAVIER Insulin Human Lispro (Insulin Lispro 100 Unit/Ml 3 Ml Vial) 0 unit SUBCUT QIDACHS [facility]; Protocol Last Admin: 08/10/21 09:17 Dose: 4 unit Documented by: JAVIER Isosorbide Mononitrate (Isosorbide Mononitrate 60 Mg Tab.Er.24h) 60 mg PO DAILY [facility]; Protocol Last Admin: 08/10/21 09:18 Dose: 60 mg Documented by: JAVIER Lactic Acid (Ammonium Lactate 12 % Cream 140 Gm Tube) 1 appl TOPICAL DAILY [facility]; Protocol Last Admin: 08/10/21 09:19 Dose: 1 appl Documented by: JAVIER Metolazone (Metolazone 5 Mg Tablet) 5 mg PO DAILY [facility] Last Admin: 08/10/21 09:18 Dose: 5 mg Documented by: JAVIER Metoprolol Succinate (Metoprolol Succinate Er 25 Mg Tab.Er.24h) 25 mg PO DAILY [facility]; Protocol Last Admin: 08/10/21 09:18 Dose: 25 mg Documented by: JAVIER Omeprazole (Omeprazole 40 Mg Capsule.Dr) 40 mg PO BID@0630,1630 [facility] Last Admin: 08/10/21 05:58 Dose: 40 mg Documented by: KIRTI Ondansetron HCl (Ondansetron Hcl 4 Mg/2 Ml Vial) 4 mg IVPUSH Q8H PRN PRN Reason: Nausea and Vomiting Last Admin: 07/19/21 06:16 Dose: 4 mg Documented by: GIL Pharmacy Consult (Consult Rx Perform Med Rec) 1 each MISCELLANE ONCE PRN PRN Reason: Consult order Potassium Chloride (Potassium Chloride Er 20 Meq Tab.Er.Prt) 40 meq PO DAILY@1230 [facility] Last Admin: 08/09/21 11:55 Dose: 40 meq Documented by: JAVIER Potassium Chloride (Potassium Chloride Er 20 Meq Tab.Er.Prt) 20 meq PO BID [facility] Last Admin: 08/10/21 09:18 Dose: 20 meq Documented by: JAVIER Sodium Chloride (0.9 % Sodium Chloride Flush 3 Ml Syringe) 3 ml IVFLUSH QSHIFT [facility] Last Admin: 08/10/21 09:18 Dose: 3 ml Documented by: JAVIER Torsemide (Torsemide 20 Mg Tablet) 100 mg PO BID [facility]; Protocol Last Admin: 08/10/21 09:18 Dose: 100 mg Documented by: JAVIER Warfarin Sodium (Warfarin Sodium 1 Mg Tablet) 1 mg PO DAILY@1800 [facility] Last Admin: 08/07/21 17:28 Dose: 1 mg Documented by: SHARAD Labs CBC & Chem 7: 08/10/21 05:25 08/10/21 05:25 Labs: Laboratory Results - last 24 hr 08/09/21 08/09/21 08/09/21 11:32 15:30 19:24 MCV MCH MCHC RDW Plt Count MPV Absolute Nucleated RBC Nucleated RBC % (auto) PT INR Anion Gap Estim Creat Clear Calc Estimated GFR POC Glucose 235 H 165 H 185 H Fasting Glucose Calcium Iron TIBC % Saturation Unsat Iron Binding 08/10/21 08/10/21 08/10/21 05:25 05:25 05:25 MCV 87.2 MCH 28.4 MCHC 32.5 RDW 16.3 H Plt Count 268 MPV 9.6 Absolute Nucleated RBC 0.000 Nucleated RBC % (auto) 0.0 PT 25.4 H INR 2.2 H Anion Gap 15 Estim Creat Clear Calc 36.8 Estimated GFR 22 POC Glucose Fasting Glucose 168 H Calcium 7.8 L Iron 41 L TIBC 212 L % Saturation 19 Unsat Iron Binding 171 08/10/21 07:25 MCV MCH MCHC RDW Plt Count MPV Absolute Nucleated RBC Nucleated RBC % (auto) PT INR Anion Gap Estim Creat Clear Calc Estimated GFR POC Glucose 160 H Fasting Glucose Calcium Iron TIBC % Saturation Unsat Iron Binding Assessment and Plan (1) Urinary retention with incomplete bladder emptying: Status: Acute (2) Acute blood loss anemia (ABLA): Status: Acute (3) Anasarca: Status: Acute (4) Acute on chronic diastolic HF (heart failure): Status: Acute Plan 61yo M with HTN, HFpEF with cardioMEMS device in place, HLD, CAD, DM2, DARLENE, severe pHTN, AF on warfarin, CKD3-4, hx CVA, polycythemic vera, chronic hypoxic respiratory failure on 2L recent admission to [facility] for CHF exacerbation presenting with nausea/vomiting, dizziness Monty I on CKD stage 3 Creatinine of 2.9, urea 120s Avoid nephrotoxic medications Urine studies Get Nephrology evaluation acute on chronic HFpEF diuresed almost 25L druing this hospital stay TTE 07/07/20 LVEF 50%, no RWMA, mild , mod pulm HTN off bumex drip Continue metolazone 5 mg daily Continue Torsemide home dose follow BMP and BNP Acute blood loss anemia 2/2 hematuria Hemoglobin dropped further, now at 8 Patient reporting dyspnea on exertion hematuria was likely due to traumatic Mcknight placement while on anticoagulation failed voiding trial 08/06, mcknight reinserted, continues to bleed d/w urogoly plan for capping with intermittent drainage To give 1 unit of blood Monitor H&H Scrotal swelling Improved, continue diuresis Keep scrotum elevated permanent AF continue metoprolol; d/montez digoxin due to CKD, Hold Coumadin keep INR 2-2.5 CKD4 stable acute pontine CVA Improved conitnue statin coumadin hypoK continue potassium 40meq at lunch, 20meq am and pm for 80meq total monitor nausea/vomiting with 1 episode blood-streaked vomitus Brinda-Reyes tear.? has not recurred since admission s/p IV Protonix, now on oral PPI, repeat hematocrit is stable chronic hypoxic respiratory failure on 2L at home DM2 with hypyerglycemia, A1c 8.6 blood sugar stable, on correction-dose lispro.? on U-500 + Trulicity at home.? Continue diabetic diet and insulin sliding scale. CAD episode of chest pain resolved, troponins flat, continue statin, metoprolol, Imdur HTN stable blood pressure on metoprolol, low-dose hydralazine, Imdur, (amlodipine discontinued) morbid obesity outpt bariatrics evaluation can be considered DARLENE continue CPAP at bedtime and during naps VTE ppx on warfari dispo plan home with VNA Quality Stroke Does the patient have a stroke diagnosis?: No VTE Prior VTE?: No VTE Risk Level:: Medical - moderate - high VTE Device Contraindication: N/A - Device Ordered VTE Drug Contraindication: Treatment Not Indicated
[2021-08-10 11:29] LABS: Glucose, Whole Blood 161 mg/dL (60-115)
[2021-08-10] MEDS: Potassium Chloride ER 20 MEQ TAB.ER.PRT 40 MEQ PO (12:09)
[2021-08-10] MEDS: Ferrous Sulfate 324 MG TABLET.DR PO (12:09)
[2021-08-10 15:03] LABS: Creatinine Urine 37.12 mg/dL
[2021-08-10 16:23] LABS: Glucose, Whole Blood 149 mg/dL (60-115)
[2021-08-10 20:05] LABS: Glucose, Whole Blood 187 mg/dL (60-115)
[2021-08-10] MEDS: Amitriptyline HCl 50 MG TABLET 150 MG PO (20:09)
[2021-08-11] VITALS (8 sets, daily range): BP systolic 106–130; BP diastolic 55–73; PULSE 59–97; RESP 14–20; TEMP 36.2–36.9; O2SAT 93–98
[2021-08-11] MEDS: 0.9 % Sodium Chloride Flush 3 ML SYRINGE IVFLUSH ×4 (00:34→21:29)
[2021-08-11] MEDS: HYDROmorphone HCl 2 MG TABLET 1 MG PO ×2 (03:47→11:51)
[2021-08-11] MEDS: Omeprazole 40 MG CAPSULE.DR PO ×2 (06:01→16:29)
[2021-08-11 06:14] LABS: Mean Corpuscular HGB Conc 33.3 g/dl (31.0-36.0); Mean Corpuscular Hemoglobin 29.2 pg (27.0-33.0); Mean Corpuscular Volume 87.6 fL (80.0-98.0); Mean Platelet Volume 9.4 fL (9.4-12.4); Platelet Count 255 X10*3/uL (160-400); Red Blood Count 2.74 X10*6/uL (4.60-5.80); Red Cell Distribution Width 16.3 % (11.0-16.0); White Blood Count 8.6 X10*3/uL (4.8-10.8)
[2021-08-11 06:16] LABS: INTERNATIONAL NORM RATIO 1.9 (0.9-1.1); Prothrombin Time 22.2 SEC (9.9-13.0)
[2021-08-11 07:00] LABS: Anion Gap 15 (12-20); Calcium 7.9 mg/dL (8.4-10.2); Carbon Dioxide 29 mmol/L (22-29); Chloride 93 mmol/L (96-108); Creatinine Clr Calc Pharmacy 36.3; Estimated Glomerular Filt Rate 22; Glucose Random 155 mg/dL (60-115); Potassium 3.9 mmol/L (3.3-5.1); Sodium 133 mmol/L (135-145)
--- NOTE | 2021-08-11 07:31 | PC.NURSE ---
PERDUE CATHETER REMAINED CAPPED ORDERED AND EMPTIED EVERY 4 HOURS; 0030 FOR 400ML BLOODY URINE AND 0430FOR 450ML BLOODY URINE, NAYELI WELL AND DRAINED FREELY.
[2021-08-11 07:35] LABS: Glucose, Whole Blood 151 mg/dL (60-115)
[2021-08-11] MEDS: Isosorbide Mononitrate 60 MG TAB.ER.24H PO (08:07)
[2021-08-11] MEDS: Metoprolol Succinate ER 25 MG TAB.ER.24H PO (08:08)
[2021-08-11] MEDS: Atorvastatin Calcium 80 MG TABLET PO (08:08)
[2021-08-11] MEDS: metOLazone 5 MG TABLET PO (08:08)
[2021-08-11] MEDS: Torsemide 20 MG TABLET 100 MG PO (08:08)
[2021-08-11] MEDS: Ferrous Sulfate 324 MG TABLET.DR PO (08:08)
[2021-08-11] MEDS: Ascorbic Acid 500 MG TABLET PO (08:08)
[2021-08-11] MEDS: Amitriptyline HCl 50 MG TABLET PO (08:08)
[2021-08-11] MEDS: hydrALAZINE HCl 25 MG TABLET PO ×2 (08:08→16:26)
[2021-08-11] MEDS: Insulin Lispro 100 UNIT/ML 3 ML VIAL SUBCUT ×3 (08:09→16:38)
[2021-08-11] MEDS: Potassium Chloride ER 20 MEQ TAB.ER.PRT PO ×2 (08:09→21:28)
[2021-08-11 08:49] LABS: Blood Urea Nitrogen 119 mg/dL (9-16)
--- NOTE | 2021-08-11 09:26 | P.PNIM_ITS ---
Subjective Subjective Date of Service: 08/11/21 Interval History: the patient was seen and evaluated this morning Still having hematuria, small amount of blood leaking around the Mcknight Hb remained around 8 after 1 unit transfusion No reported other overnight events. Systemic review: No fever, chills but has generalized weakness No chest pain, palpitation No shortness of breath or coughing No abdominal pain, nausea or vomiting Hematuria No any rash or wounds Physical Exam Vital Signs: Vital Signs: Last Vital Signs Temp 98.4 F 08/11/21 03:36 Pulse 78 08/11/21 03:36 Resp 14 08/11/21 03:36 BP 116/66 08/11/21 03:36 Pulse Ox 93 08/11/21 03:36 Oxygen Flow Rate 3 07/22/21 04:00 BMI result Body Mass Index 39.2 Const: Other: Gen:? Awake, alert in no acute distress Neck: supple, no increased JVD Lungs: Coarse breath sound, no wheeze, no crackles Heart: irregularly irregular, no murmurs Abd: soft, non-tender, non-distended, obese :? Resolving scrotal swelling , dry blood around Mcknight catheter, Mcknight with bloody urine Ext: venous stasis hyperpigmentation to shins, decreased edema in both thighs and back Skin: warm/well-perfused Neuro: alert and oriented x3, no focal findings Psych: appropriate affect Objective Data Active Medications Acetaminophen (Acetaminophen 325 Mg Tablet) 650 mg PO Q6H PRN PRN Reason: Pain, Mild (Pain Scale 1-3) Last Admin: 08/06/21 22:16 Dose: 650 mg Documented by: ABIGAIL Al Hydroxide/Mg Hydroxide (Magnesium Hydrox/Alum Hydrox 30 Ml Oral.Susp) 30 ml PO Q4H PRN PRN Reason: heartbirun Last Admin: 07/19/21 00:23 Dose: 30 ml Documented by: GIL Amitriptyline HCl (Amitriptyline Hcl 50 Mg Tablet) 150 mg PO BEDTIME [facility] Last Admin: 08/10/21 20:09 Dose: 150 mg Documented by: MOMO Amitriptyline HCl (Amitriptyline Hcl 50 Mg Tablet) 50 mg PO DAILY [facility] Last Admin: 08/11/21 08:08 Dose: 50 mg Documented by: SHARAD Ascorbic Acid (Ascorbic Acid 500 Mg Tablet) 500 mg PO DAILY [facility] Last Admin: 08/11/21 08:08 Dose: 500 mg Documented by: SHARAD Atorvastatin Calcium (Atorvastatin Calcium 80 Mg Tablet) 80 mg PO DAILY [facility] Last Admin: 08/11/21 08:08 Dose: 80 mg Documented by: SHARAD Bismuth Subsalicylate (Bismuth Subsalicylate Liquid 524 Mg/30 Ml Oral.Susp) 524 mg PO QID PRN PRN Reason: Indigestion Last Admin: 07/18/21 15:06 Dose: 524 mg Documented by: LORE Dextrose (Dextrose 50 % 25 Gm/50 Ml Syringe) 25 gm IVPUSH Q15M PRN; Protocol PRN Reason: per Hypoglycemia Standing Ord. Docusate Sodium (Docusate Sodium 100 Mg Capsule) 100 mg PO DAILY PRN PRN Reason: Constipation Ferrous Sulfate (Ferrous Sulfate 324 Mg Tablet.Dr) 324 mg PO DAILY [facility] Last Admin: 08/11/21 08:08 Dose: 324 mg Documented by: HSARAD Glucose (Glucose Gel 15 Gm Gel..Gram.) 15 gm PO Q15M PRN; Protocol PRN Reason: per Hypoglycemia Standing Ord. Hydralazine HCl (Hydralazine Hcl 25 Mg Tablet) 25 mg PO TID [facility]; Protocol Last Admin: 08/11/21 08:08 Dose: 25 mg Documented by: SHARAD Hydromorphone HCl (Hydromorphone Hcl 2 Mg Tablet) 1 mg PO Q4H PRN PRN Reason: moderate pain Last Admin: 08/11/21 03:47 Dose: 1 mg Documented by: KIAN Insulin Human Lispro (Insulin Lispro 100 Unit/Ml 3 Ml Vial) 0 unit SUBCUT QIDACHS [facility]; Protocol Last Admin: 08/11/21 08:09 Dose: 4 unit Documented by: SHARAD Isosorbide Mononitrate (Isosorbide Mononitrate 60 Mg Tab.Er.24h) 60 mg PO DAILY [facility]; Protocol Last Admin: 08/11/21 08:07 Dose: 60 mg Documented by: SHARAD Lactic Acid (Ammonium Lactate 12 % Cream 140 Gm Tube) 1 appl TOPICAL DAILY [facility]; Protocol Last Admin: 08/10/21 09:19 Dose: 1 appl Documented by: HO.RAEJ Metolazone (Metolazone 5 Mg Tablet) 5 mg PO DAILY [facility] Last Admin: 08/11/21 08:08 Dose: 5 mg Documented by: SHARAD Metoprolol Succinate (Metoprolol Succinate Er 25 Mg Tab.Er.24h) 25 mg PO DAILY [facility]; Protocol Last Admin: 08/11/21 08:08 Dose: 25 mg Documented by: SHARAD Omeprazole (Omeprazole 40 Mg Capsule.Dr) 40 mg PO BID@0630,1630 [facility] Last Admin: 08/11/21 06:01 Dose: 40 mg Documented by: KIAN Ondansetron HCl (Ondansetron Hcl 4 Mg/2 Ml Vial) 4 mg IVPUSH Q8H PRN PRN Reason: Nausea and Vomiting Last Admin: 07/19/21 06:16 Dose: 4 mg Documented by: GIL Pharmacy Consult (Consult Rx Perform Med Rec) 1 each MISCELLANE ONCE PRN PRN Reason: Consult order Potassium Chloride (Potassium Chloride Er 20 Meq Tab.Er.Prt) 40 meq PO DAILY@1230 [facility] Last Admin: 08/10/21 12:09 Dose: 40 meq Documented by: JAVIER Potassium Chloride (Potassium Chloride Er 20 Meq Tab.Er.Prt) 20 meq PO BID [facility] Last Admin: 08/11/21 08:09 Dose: 20 meq Documented by: SHARAD Sodium Chloride (0.9 % Sodium Chloride Flush 3 Ml Syringe) 3 ml IVFLUSH QSHIFT [facility] Last Admin: 08/11/21 08:09 Dose: 3 ml Documented by: SHARAD Torsemide (Torsemide 20 Mg Tablet) 100 mg PO BID [facility]; Protocol Last Admin: 08/11/21 08:08 Dose: 100 mg Documented by: SHARAD Warfarin Sodium (Warfarin Sodium 1 Mg Tablet) 1 mg PO DAILY@1800 [facility] Last Admin: 08/07/21 17:28 Dose: 1 mg Documented by: SHARAD Labs CBC & Chem 7: 08/11/21 05:37 08/11/21 05:37 Labs: Laboratory Results - last 24 hr 08/10/21 08/10/21 08/10/21 05:25 10:28 11:15 MCV MCH MCHC RDW Plt Count MPV Absolute Nucleated RBC Nucleated RBC % (auto) PT INR Anion Gap Estim Creat Clear Calc Estimated GFR POC Glucose 161 H Random Glucose Calcium Iron 41 L TIBC 212 L % Saturation 19 Unsat Iron Binding 171 Ur Random Sodium Urine Creatinine Blood Type O Positive Antibody Screen NEGATIVE Crossmatch See Detail 08/10/21 08/10/21 08/10/21 14:30 16:18 19:45 MCV MCH MCHC RDW Plt Count MPV Absolute Nucleated RBC Nucleated RBC % (auto) PT INR Anion Gap Estim Creat Clear Calc Estimated GFR POC Glucose 149 H 187 H Random Glucose Calcium Iron TIBC % Saturation Unsat Iron Binding Ur Random Sodium 44.0 Urine Creatinine 37.12 Blood Type Antibody Screen Crossmatch 08/11/21 08/11/21 08/11/21 05:37 05:37 05:37 MCV 87.6 MCH 29.2 MCHC 33.3 RDW 16.3 H Plt Count 255 MPV 9.4 Absolute Nucleated RBC 0.000 Nucleated RBC % (auto) 0.0 PT 22.2 H INR 1.9 H Anion Gap 15 Estim Creat Clear Calc 36.3 Estimated GFR 22 POC Glucose Random Glucose 155 H Calcium 7.9 L Iron TIBC % Saturation Unsat Iron Binding Ur Random Sodium Urine Creatinine Blood Type Antibody Screen Crossmatch 08/11/21 07:27 MCV MCH MCHC RDW Plt Count MPV Absolute Nucleated RBC Nucleated RBC % (auto) PT INR Anion Gap Estim Creat Clear Calc Estimated GFR POC Glucose 151 H Random Glucose Calcium Iron TIBC % Saturation Unsat Iron Binding Ur Random Sodium Urine Creatinine Blood Type Antibody Screen Crossmatch Assessment and Plan (1) Urinary retention with incomplete bladder emptying: Status: Acute (2) Acute blood loss anemia (ABLA): Status: Acute (3) Gross hematuria: Status: Acute Plan 61yo M with HTN, HFpEF with cardioMEMS device in place, HLD, CAD, DM2, DARLENE, severe pHTN, AF on warfarin, CKD3-4, hx CVA, polycythemic vera, chronic hypoxic respiratory failure on 2L recent admission to [facility] for CHF exacerbation presenting with nausea/vomiting, dizziness Acute blood loss anemia 2/2 hematuria Hemoglobin dropped to 8, remained 8 after 1 unit transfusion Patient reporting dyspnea on exertion Hematuria was likely due to traumatic Mcknight placement while on anticoagulation failed voiding trial /, mcknight reinserted, continues to bleed d/w urogoly plan for capping with intermittent drainage Monitor H&H Urology following Monty I on CKD stage 3 Creatinine of 2.9, urea 120s Avoid nephrotoxic medications Urine studies pending Nephrology evaluation acute on chronic HFpEF diuresed almost 25L druing this hospital stay TTE 07/07/20 LVEF 50%, no RWMA, mild , mod pulm HTN off bumex drip Continue metolazone 5 mg daily Continue Torsemide home dose follow BMP and BNP Scrotal swelling Improved, continue diuresis Keep scrotum elevated permanent AF continue metoprolol; d/montez digoxin due to CKD, restart 1mg Coumadin keep INR above 2 CKD4 stable acute pontine CVA Improved conitnue statin coumadin hypoK continue potassium 40meq at lunch, 20meq am and pm for 80meq total monitor nausea/vomiting with 1 episode blood-streaked vomitus Brinda-Reyes tear.? has not recurred since admission s/p IV Protonix, now on oral PPI, repeat hematocrit is stable chronic hypoxic respiratory failure on 2L at home DM2 with hypyerglycemia, A1c 8.6 blood sugar stable, on correction-dose lispro.? on U-500 + Trulicity at home.? Continue diabetic diet and insulin sliding scale. CAD episode of chest pain resolved, troponins flat, continue statin, metoprolol, Imdur HTN stable blood pressure on metoprolol, low-dose hydralazine, Imdur, (amlodipine discontinued) morbid obesity outpt bariatrics evaluation can be considered DARLENE continue CPAP at bedtime and during naps VTE ppx on warfari dispo plan home with VNA Quality Stroke Does the patient have a stroke diagnosis?: No VTE Prior VTE?: No VTE Risk Level:: Medical - moderate - high VTE Device Contraindication: N/A - Device Ordered VTE Drug Contraindication: Treatment Not Indicated
[2021-08-11 11:41] LABS: Glucose, Whole Blood 163 mg/dL (60-115)
[2021-08-11] MEDS: Potassium Chloride ER 20 MEQ TAB.ER.PRT 40 MEQ PO (11:51)
[2021-08-11] MEDS: Ammonium Lactate 12 % Cream 140 GM TUBE 1 APPL TOPICAL (13:16)
--- NOTE | 2021-08-11 15:01 | CONS_ITS ---
DATE OF SERVICE: 08/11/2021 REASON FOR CONSULTATION: I was asked to see patient to assist in evaluation and management of patient's renal dysfunction as reflected by BUN and creatinine today of 119 and 2.98. He has been here in the hospital since July 17 and his BUNs have been ranging in the 100-120 range during this hospital course. His serum creatinine has been in the 2-3 range during the hospital course and his outpatient record shows creatinine typically in the 1.5 to 2.0 range. HISTORY OF PRESENT ILLNESS: In summary, he is a complicated 61-year-old gentleman with severe cardiac dysfunction requiring high-dose diuretics and has been getting aggressively diuresed and noted to have a worsening renal function as mentioned. Hospital course has been complicated by gross hematuria with leaking around his Camilo, has been seen by Urology. He was initially admitted as mentioned on July 17 for nausea, vomiting, and dizziness and a heart failure. He has been seen by Cardiology and has a history of heart failure with preserved EF with moderate pulmonary hypertension. He had 1 episode of vomiting up blood consistent with a Brinda-Reyes tear, but this has not been an active issue. As medications, he requires ongoing diuresis to optimize his respiratory status. Patient is a bit confused, unable to provide much in the way of information. PAST MEDICAL HISTORY: Known for coronary artery disease, heart failure with preserved EF, stage IIIB chronic kidney disease, baseline creatinine 1.5 to 2.0, history of stroke, diabetes, hypertension, hyperlipidemia, neuropathy, obstructive sleep apnea, atrial fibrillation, polycythemia vera, pulmonary hypertension as well. He has a CardioMEMS unit in place. MEDICATIONS: His medications on admission are noted in the admitting notes and listed as including amitriptyline, Lipitor, Dig, insulin, metoprolol, Coumadin, Elavil, amlodipine, hydralazine, isosorbide, metolazone 5 mg once a day, potassium, torsemide 100 mg twice a day. His current medications continue to include metolazone 5 mg a day and the torsemide 100 mg twice a day, which is his routine. SOCIAL HISTORY: Rare alcohol use, nonsmoker. No illicit drug use. ALLERGIES: NO KNOWN DRUG ALLERGIES. FAMILY HISTORY: Noncontributory. REVIEW OF SYSTEMS: As noted above. PHYSICAL EXAMINATION: VITAL SIGNS: Blood pressure 116/66 with a heart rate in the 70s. He is afebrile. HEENT: Head is atraumatic and normocephalic. NECK: Supple. Mucous membranes are moist. LUNGS: Breath sounds diminished at the bases. CARDIAC: Regular rate and rhythm. ABDOMEN: Soft, nontender. EXTREMITIES: Shows trace edema. There is no asterixis. LABORATORY DATA: Labs from today show hemoglobin 8, hematocrit 24, white blood count 8.6, platelet count 255. INR 1.9. Sodium 133, potassium 3.9, chloride 93, BUN 119, creatinine 2.98, calcium 7.9. IMPRESSION: A 61-year-old with acute kidney injury on advanced chronic kidney disease in the setting of significant heart failure with preserved EF requiring high-dose diuretics. 1. Acute kidney injury. This is consistent with cardiorenal syndrome. He needs to be kept on the dry side with high-dose diuretics to prevent decompensated heart failure. It may be that he has had a new baseline in terms of the serum creatinine now being in the 2.5 to 3.0 range, whereas before was in the 1.5 to 2.0 range. We will need to discuss with Cardiology to see if there is anything further that can be done. Additionally, whether the CardioMEMS unit is providing reliable readings to help adjust his diuretic regimen. The chart says that he has lost probably 30 pounds of fluid weight since being admitted, although it is unclear to me if indeed that is the case. 2. Increase BUN to creatinine ratio. We get concern for upper GI bleed as a cause for increased BUN. Alternatively it may simply just be from diuresis that there is an elevated BUN to creatinine ratio. 3. Advanced chronic kidney disease. Most likely is due to combination of diabetic hypertensive renal disease. Certainly could be a component of chronic cardiorenal syndrome with renal hypoperfusion playing a role as well. 4. Anemia. He may be a candidate for EPO injections. We will check iron studies. SUGGESTIONS: At this time include discussed with Cardiology as to whether diuretics could be adjusted and if there is any other cardiac interventions available for this 61-year-old gentleman, this seems to have severe cardiac dysfunction. We will check iron studies to see about starting him on iron and/or EPO. Avoid nephrotoxins. Diuretic adjustment may be an issue, but again will discuss with Cardiology. With guaiac stools, make sure he is not having ongoing upper GI bleed as well that could be contributing to increase BUN to creatinine ratio. MD AMIRA Terrazas/VLAD / [id number]
[2021-08-11] MEDS: Acetaminophen 325 MG TABLET 650 MG PO (16:27)
[2021-08-11 16:43] LABS: Glucose, Whole Blood 304 mg/dL (60-115)
--- NOTE | 2021-08-11 19:01 | PC.NURSE ---
Patient had an unwitnessed fall in the room today, 08/11 at 15:50pm. Both doctor Nurse senior manufacturing supervisor were informed and attended to the incident aware. The patient fell from bed to the floor. Patient said he was trying to turn from the bed. Patient had all safety checks in place, bed alarm on, bed in lowest position, call wagner within reach, red socks. Patient had been educated on safety measures while in room. Vital signs taken during the fall are stable. Patient complained of headache, pain /10, which was relieved by Tylenol. Patient had slight abrasions on his knees, no bleeding. Neuro-checks were performed, patient seemed fine. I called and reported the incident to the patient's friend who is his primary contact and takes care of the patient. Patient is now stable, rested in his room.
[2021-08-11 20:09] LABS: Glucose, Whole Blood 84 mg/dL (60-115)
[2021-08-11] MEDS: Amitriptyline HCl 25 MG TABLET 75 MG PO (21:28)
[2021-08-12] VITALS (8 sets, daily range): BP systolic 106–118; BP diastolic 57–68; PULSE 61–89; RESP 14–20; TEMP 35.9–36.7; O2SAT 93–100
[2021-08-12] MEDS: Omeprazole 40 MG CAPSULE.DR PO ×2 (05:35→15:40)
[2021-08-12 06:14] LABS: Hematocrit 24.7 % (42.0-52.0); Mean Corpuscular HGB Conc 32.4 g/dl (31.0-36.0); Mean Corpuscular Hemoglobin 28.4 pg (27.0-33.0); Mean Corpuscular Volume 87.6 fL (80.0-98.0); Mean Platelet Volume 9.2 fL (9.4-12.4); Platelet Count 279 X10*3/uL (160-400); Red Blood Count 2.82 X10*6/uL (4.60-5.80); White Blood Count 8.7 X10*3/uL (4.8-10.8)
[2021-08-12 06:48] LABS: Anion Gap 12 (12-20); Blood Urea Nitrogen 124 mg/dL (9-16); Calcium 8.1 mg/dL (8.4-10.2); Carbon Dioxide 32 mmol/L (22-29); Chloride 92 mmol/L (96-108); Creatinine Clr Calc Pharmacy 38.7; Estimated Glomerular Filt Rate 23; Glucose Random 103 mg/dL (60-115); Potassium 3.2 mmol/L (3.3-5.1); Sodium 133 mmol/L (135-145)
[2021-08-12 07:39] LABS: Glucose, Whole Blood 95 mg/dL (60-115)
[2021-08-12 08:07] LABS: INTERNATIONAL NORM RATIO 1.6 (0.9-1.1); Prothrombin Time 18.7 SEC (9.9-13.0)
[2021-08-12] MEDS: Isosorbide Mononitrate 60 MG TAB.ER.24H PO (08:55)
[2021-08-12] MEDS: Potassium Chloride ER 20 MEQ TAB.ER.PRT 40 MEQ PO ×2 (08:55→11:48)
[2021-08-12] MEDS: Potassium Chloride ER 20 MEQ TAB.ER.PRT PO ×2 (08:55→20:23)
[2021-08-12] MEDS: hydrALAZINE HCl 25 MG TABLET PO ×3 (08:56→20:23)
[2021-08-12] MEDS: Atorvastatin Calcium 80 MG TABLET PO (08:56)
[2021-08-12] MEDS: Torsemide 20 MG TABLET 100 MG PO ×2 (08:56→20:23)
[2021-08-12] MEDS: Ferrous Sulfate 324 MG TABLET.DR PO (08:56)
[2021-08-12] MEDS: 0.9 % Sodium Chloride Flush 3 ML SYRINGE IVFLUSH ×3 (08:57→20:24)
[2021-08-12] MEDS: Ascorbic Acid 500 MG TABLET PO (08:57)
[2021-08-12] MEDS: Ammonium Lactate 12 % Cream 140 GM TUBE 1 APPL TOPICAL (08:57)
[2021-08-12] MEDS: Metoprolol Succinate ER 25 MG TAB.ER.24H PO (08:57)
--- NOTE | 2021-08-12 09:46 | MHC.CLN ---
F/U SEEN BY NEPHROLOGY 08/11. NIRAJ ON ADVANCED CKD. PATIENT WITH SIGNIFICANT HEART FAILURE REQUIRING HIGH-DOSE DIURETIC. LABS 08/12 WITH YEJ=413; Cr=2.79. DIET=DIABETIC 2000 KCAL, 2 G SODIUM. STAGE II WOUND TO BILATERAL BUTTOCKS. NO SUPPLEMENT AT THIS TIME DUE TO RENAL FUNCTION. INTAKE AT MEALS CONTINUES VARIABLE WITH INTAKE X PAST 3 DAYS 25-100%. WEIGHT LOSS ANTICIPATED WITH DIURESIS. CONTINUE TO FOLLOW LABS, INTAKE, AND WOUND.
--- NOTE | 2021-08-12 10:34 | HO.PM.IMPN ---
Subjective Subjective Date of Service: 08/12/21 Interval History: the patient was seen and evaluated this morning Still having hematuria, blood still leaking around the Mcknight Hb remained around 8 after 1 unit transfusion No reported other overnight events. Systemic review: No fever, chills but has generalized weakness No chest pain, palpitation No shortness of breath or coughing No abdominal pain, nausea or vomiting Hematuria No any rash or wounds Physical Exam Vital Signs: Vital Signs: Last Vital Signs Temp 96.9 F 08/12/21 07:07 Pulse 61 08/12/21 07:07 Resp 18 08/12/21 08:04 BP 118/57 L 08/12/21 07:07 Pulse Ox 97 08/12/21 07:07 Oxygen Flow Rate 3 07/22/21 04:00 BMI result Body Mass Index 39.2 Const: Other: Gen:? Awake, alert in no acute distress Neck: supple, no increased JVD Lungs: Coarse breath sound, no wheeze, no crackles Heart: irregularly irregular, no murmurs Abd: soft, non-tender, non-distended, obese :? Resolving scrotal swelling , dry blood around Mcknight catheter, Mcknight with bloody urine Ext: venous stasis hyperpigmentation to shins, decreased edema in both thighs and back Skin: warm/well-perfused Neuro: alert and oriented x3, no focal findings Psych: appropriate affect Objective Data Active Medications Acetaminophen (Acetaminophen 325 Mg Tablet) 650 mg PO Q6H PRN PRN Reason: Pain, Mild (Pain Scale 1-3) Last Admin: 08/11/21 16:27 Dose: 650 mg Documented by: SHARAD Al Hydroxide/Mg Hydroxide (Magnesium Hydrox/Alum Hydrox 30 Ml Oral.Susp) 30 ml PO Q4H PRN PRN Reason: heartbirun Last Admin: 07/19/21 00:23 Dose: 30 ml Documented by: GIL Amitriptyline HCl (Amitriptyline Hcl 50 Mg Tablet) 50 mg PO DAILY [facility] Last Admin: 08/11/21 08:08 Dose: 50 mg Documented by: SHARAD Amitriptyline HCl (Amitriptyline Hcl 25 Mg Tablet) 75 mg PO BEDTIME [facility] Last Admin: 08/11/21 21:28 Dose: 75 mg Documented by: ABIGAIL Ascorbic Acid (Ascorbic Acid 500 Mg Tablet) 500 mg PO DAILY [facility] Last Admin: 08/12/21 08:57 Dose: 500 mg Documented by: SHARAD Atorvastatin Calcium (Atorvastatin Calcium 80 Mg Tablet) 80 mg PO DAILY [facility] Last Admin: 08/12/21 08:56 Dose: 80 mg Documented by: SHARAD Bismuth Subsalicylate (Bismuth Subsalicylate Liquid 524 Mg/30 Ml Oral.Susp) 524 mg PO QID PRN PRN Reason: Indigestion Last Admin: 07/18/21 15:06 Dose: 524 mg Documented by: LORE Dextrose (Dextrose 50 % 25 Gm/50 Ml Syringe) 25 gm IVPUSH Q15M PRN; Protocol PRN Reason: per Hypoglycemia Standing Ord. Docusate Sodium (Docusate Sodium 100 Mg Capsule) 100 mg PO DAILY PRN PRN Reason: Constipation Ferrous Sulfate (Ferrous Sulfate 324 Mg Tablet.Dr) 324 mg PO DAILY [facility] Last Admin: 08/12/21 08:56 Dose: 324 mg Documented by: SHARAD Glucose (Glucose Gel 15 Gm Gel..Gram.) 15 gm PO Q15M PRN; Protocol PRN Reason: per Hypoglycemia Standing Ord. Hydralazine HCl (Hydralazine Hcl 25 Mg Tablet) 25 mg PO TID [facility]; Protocol Last Admin: 08/12/21 08:56 Dose: 25 mg Documented by: SHARAD Hydromorphone HCl (Hydromorphone Hcl 2 Mg Tablet) 0.5 mg PO Q4H PRN PRN Reason: moderate pain Insulin Human Lispro (Insulin Lispro 100 Unit/Ml 3 Ml Vial) 0 unit SUBCUT QIDACHS [facility]; Protocol Last Admin: 08/12/21 08:57 Dose: Not Given Documented by: SHARAD Non-Admin Reason: No Insulin Coverage Isosorbide Mononitrate (Isosorbide Mononitrate 60 Mg Tab.Er.24h) 60 mg PO DAILY [facility]; Protocol Last Admin: 08/12/21 08:55 Dose: 60 mg Documented by: SHARAD Lactic Acid (Ammonium Lactate 12 % Cream 140 Gm Tube) 1 appl TOPICAL DAILY [facility]; Protocol Last Admin: 08/12/21 08:57 Dose: 1 appl Documented by: SHARAD Metolazone (Metolazone 5 Mg Tablet) 5 mg PO DAILY [facility] Last Admin: 08/11/21 08:08 Dose: 5 mg Documented by: SHARAD Metoprolol Succinate (Metoprolol Succinate Er 25 Mg Tab.Er.24h) 25 mg PO DAILY [facility]; Protocol Last Admin: 08/12/21 08:57 Dose: 25 mg Documented by: SHARAD Omeprazole (Omeprazole 40 Mg Capsule.Dr) 40 mg PO BID@0630,1630 [facility] Last Admin: 08/12/21 05:35 Dose: 40 mg Documented by: ABIGAIL Ondansetron HCl (Ondansetron Hcl 4 Mg/2 Ml Vial) 4 mg IVPUSH Q8H PRN PRN Reason: Nausea and Vomiting Last Admin: 07/19/21 06:16 Dose: 4 mg Documented by: GIL Pharmacy Consult (Consult Rx Perform Med Rec) 1 each MISCELLANE ONCE PRN PRN Reason: Consult order Potassium Chloride (Potassium Chloride Er 20 Meq Tab.Er.Prt) 40 meq PO DAILY@1230 [facility] Last Admin: 08/11/21 11:51 Dose: 40 meq Documented by: SHARAD Potassium Chloride (Potassium Chloride Er 20 Meq Tab.Er.Prt) 20 meq PO BID [facility] Last Admin: 08/12/21 08:55 Dose: 20 meq Documented by: SHARAD Sodium Chloride (0.9 % Sodium Chloride Flush 3 Ml Syringe) 3 ml IVFLUSH QSHIFT [facility] Last Admin: 08/12/21 08:57 Dose: 3 ml Documented by: SHARAD Torsemide (Torsemide 20 Mg Tablet) 100 mg PO BID [facility]; Protocol Last Admin: 08/12/21 08:56 Dose: 100 mg Documented by: SHARAD Warfarin Sodium (Warfarin Sodium 1 Mg Tablet) 1 mg PO DAILY@1800 [facility] Last Admin: 08/12/21 09:10 Dose: Not Given Documented by: SHARAD Non-Admin Reason: Patient Condition Contraindication Labs CBC & Chem 7: 08/12/21 05:46 08/12/21 05:46 Labs: Laboratory Results - last 24 hr 08/11/21 08/11/21 08/11/21 11:29 16:30 20:03 MCV MCH MCHC RDW Plt Count MPV Absolute Nucleated RBC Nucleated RBC % (auto) PT INR Anion Gap Estim Creat Clear Calc Estimated GFR POC Glucose 163 H 304 H 84 Random Glucose Calcium 08/12/21 08/12/21 08/12/21 05:46 05:46 05:46 MCV 87.6 MCH 28.4 MCHC 32.4 RDW 16.0 Plt Count 279 MPV 9.2 L Absolute Nucleated RBC 0.000 Nucleated RBC % (auto) 0.0 PT 18.7 H INR 1.6 H Anion Gap 12 Estim Creat Clear Calc 38.7 Estimated GFR 23 POC Glucose Random Glucose 103 Calcium 8.1 L 08/12/21 07:15 MCV MCH MCHC RDW Plt Count MPV Absolute Nucleated RBC Nucleated RBC % (auto) PT INR Anion Gap Estim Creat Clear Calc Estimated GFR POC Glucose 95 Random Glucose Calcium Assessment and Plan (1) Urinary retention with incomplete bladder emptying: Status: Acute (2) Intermittent gross hematuria: Status: Acute Plan 61yo M with HTN, HFpEF with cardioMEMS device in place, HLD, CAD, DM2, DARLENE, severe pHTN, AF on warfarin, CKD3-4, hx CVA, polycythemic vera, chronic hypoxic respiratory failure on 2L recent admission to [facility] for CHF exacerbation presenting with nausea/vomiting, dizziness Acute blood loss anemia 2/2 hematuria Hemoglobin dropped to 8, remained 8 after 1 unit transfusion Hematuria was likely due to traumatic Mcknight placement while on anticoagulation failed voiding trial /, mcknight reinserted, continues to bleed d/w urogoly plan for capping with intermittent drainage Monitor H&H Urology following, try TXA Get Hematology evaluation Physical deconditioning Secondary to prolonged hospital stay and activity Refuses PT sessions on occasions continue physical therapy with plan to placement Monty I on CKD stage 3 Creatinine of 2.7, urea 120s Avoid nephrotoxic medications Urine studies Nephrology input appreciated acute on chronic HFpEF diuresed almost 25L druing this hospital stay TTE 07/07/20 LVEF 50%, no RWMA, mild , mod pulm HTN off bumex drip Continue metolazone 5 mg daily Continue Torsemide home dose follow BMP and BNP Scrotal swelling Improved, continue diuresis Keep scrotum elevated permanent AF continue metoprolol; d/montez digoxin due to CKD, restart 1mg Coumadin keep INR dropped 1.6, continue warfarin CKD4 stable acute pontine CVA Improved conitnue statin coumadin hypoK continue potassium 40meq at lunch, 20meq am and pm for 80meq total monitor nausea/vomiting with 1 episode blood-streaked vomitus Brinda-Reyes tear.? has not recurred since admission s/p IV Protonix, now on oral PPI, repeat hematocrit is stable chronic hypoxic respiratory failure on 2L at home DM2 with hypyerglycemia, A1c 8.6 blood sugar stable, on correction-dose lispro.? on U-500 + Trulicity at home.? Continue diabetic diet and insulin sliding scale. CAD episode of chest pain resolved, troponins flat, continue statin, metoprolol, Imdur HTN stable blood pressure on metoprolol, low-dose hydralazine, Imdur, (amlodipine discontinued) morbid obesity outpt bariatrics evaluation can be considered DARLENE continue CPAP at bedtime and during naps VTE ppx on warfari dispo plan home with VNA Quality Stroke Does the patient have a stroke diagnosis?: No VTE Prior VTE?: No VTE Risk Level:: Medical - moderate - high VTE Device Contraindication: N/A - Device Ordered VTE Drug Contraindication: Treatment Not Indicated
--- NOTE | 2021-08-12 11:33 | P.CNHO_ITS ---
Subjective - Subjective Chief complaint: Consult for: Hematuria, on Coumadin. Patient: new to practice Consult date: 08/12/21 Requesting Physician: jovan Primary Care Provider: Jcarlos Melgar MD Medical Summary: DIAGNOSIS: HEMATURIA, ON COUMADIN. HPI - Consult Narrative Reason for consult: consult for: Hematuria, on Coumadin. Narrative: Vineet Rubalcava is a pleasant 61 year old gentleman, who was admitted back on July 17. He was brought to the emergency department with multiple complaints. Patient states yesterday at 04:30 in the morning he began having nausea and vomiting with associated dizziness. He reports that his dizziness has been persistent since onset but is worse when he moves his head. He denies tinnitus, recent illness. He had previous similar episode of dizziness many years ago which was caused by a stroke. He has had multiple episodes of vomiting, the latter of which he thinks may have had blood streaks. He denies any associated abdominal pain. EN route to the hospital he had left-sided chest pain which radiated down his left arm which has since resolved. He reports a good appetite prior to onset of symptoms no associated diarrhea, no travel and no takeout food. He also reports an associated headache which she reports is chronic in nature but worse than his baseline. He denies any visual changes, difficulty with speech or weakness in extremities. In the emergency department lab work was significant for leukocytosis of 13.3, INR 2.8, BUN 101, creatinine 1.99, blood sugar 410. For hyperglycemia he received 15 units of Humalog with repeat of 314. He was noted to be bradycardic and EKG was obtained. There is some concern regarding possible heart block and police department secretary was consulted. He was seen by Cardiology wall in the emergency department who did not feel it is EKG represented a heart block. He did not feel that the di zziness was cardiac in nature. Troponin was checked and remained flat at 24.8, 27.2. He received meclizine and Valium with no resolution of symptoms. Due to possible blood-streaked emesis as well as elevated BUN he received a dose of IV Protonix. Brain CT showed chronic left a subtle encephalomalacia in global volume loss but no evidence of acute stroke. Patient was recently admitted to [facility] secondary to heart failure. Vaccination status- patient has received [email or web address] vaccine x2 plus booster. Review of Systems - Constitutional Reports system reviewed and no additional complaints, except as documented - Eyes Reports system reviewed and no additional complaints, except as documented - ENT Reports system reviewed and no additional complaints, except as documented - Cardiovascular Reports system reviewed and no additional complaints, except as documented - Respiratory Reports no additional respiratory complaints - Gastrointestinal Reports system reviewed and no additional complaints, except as documented - Genitourinary Genitourinary: Reports no additional male genitourinary complaints - Musculoskeletal Reports system reviewed and no additional complaints, except as documented - Integumentary/Breasts Skin/Breast: Reports no additional skin complaints - Neurologic Reports system reviewed and no additional complaints, except as documented, Reports as per HPI, Reports dizziness, Reports headache(s), Reports weakness, Denies syncope, Denies loss of vision - Psychiatric Reports system reviewed and no additional complaints, except as documented - Endocrine Reports no additional endocrine complaints - Hematologic/Lymphatic Reports system reviewed and no additional complaints, except as documented - Allergic/Immunologic Reports system reviewed and no additional complaints, except as documented Oncology Screenings - ECOG Performance Status ECOG Performance Status: 1 [facility] Medical History: Medical History (Last Reviewed 08/18/21 @ 09:54 by BRENTON Baker) Anasarca Atrial fibrillation CAD (coronary artery disease) Cataract Cholecystectomy planned Chronic combined systolic and diastolic congestive heart failure Chronic respiratory failure CKD (chronic kidney disease) stage 3, GFR 30-59 ml/min CVA (cerebral vascular accident) Diabetes Gross hematuria Heart attack HTN (hypertension) Hyperlipidemia Neuropathy DARLENE on CPAP Permanent atrial fibrillation Polycythemia vera Pulmonary hypertension Toe amputee Urinary retention with incomplete bladder emptying Functional capacity: independent ambulation Patient : No Family History: Family History (Last Reviewed 08/18/21 @ 09:54 by BRENTON Baker) Father Diabetes Hx of cancer antigen 125 (CA-125) measurement Mother Diabetes Brother Diabetes Hx of cancer antigen 125 (CA-125) measurement Surgical History: Surgical History (Last Reviewed 08/18/21 @ 09:54 by BRENTON Baker) History of cholecystectomy Social History: Social History (Last Reviewed 07/17/21 @ 17:00 by BRENTON Lang) Living Situation History: Household Members: Other Household 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 Housing: House Do you presently have visiting nurse or other home services: No Tobacco History: Patient Tobacco Use Status: Never used Tobacco Substance Use History: Use of substances other than those prescribed or required for medical reasons : No Advance Directives: Advance Directives: No Advance Directives Information Provided: No Occupation Assessmet: service: No Current occupational status: disabled Home Medications and Allergies Current Medications: Current Medications Acetaminophen (Acetaminophen 325 Mg Tablet) 650 mg PO Q6H PRN PRN Reason: Pain, Mild (Pain Scale 1-3) Last Admin: 08/11/21 16:27 Dose: 650 mg Documented by: Al Hydroxide/Mg Hydroxide (Magnesium Hydrox/Alum Hydrox 30 Ml Oral.Susp) 30 ml PO Q4H PRN PRN Reason: heartbirun Last Admin: 07/19/21 00:23 Dose: 30 ml Documented by: Amitriptyline HCl (Amitriptyline Hcl 50 Mg Tablet) 50 mg PO DAILY [facility] Last Admin: 08/11/21 08:08 Dose: 50 mg Documented by: Amitriptyline HCl (Amitriptyline Hcl 25 Mg Tablet) 75 mg PO BEDTIME [facility] Last Admin: 08/11/21 21:28 Dose: 75 mg Documented by: Ascorbic Acid (Ascorbic Acid 500 Mg Tablet) 500 mg PO DAILY [facility] Last Admin: 08/12/21 08:57 Dose: 500 mg Documented by: Atorvastatin Calcium (Atorvastatin Calcium 80 Mg Tablet) 80 mg PO DAILY [facility] Last Admin: 08/12/21 08:56 Dose: 80 mg Documented by: Bismuth Subsalicylate (Bismuth Subsalicylate Liquid 524 Mg/30 Ml Oral.Susp) 524 mg PO QID PRN PRN Reason: Indigestion Last Admin: 07/18/21 15:06 Dose: 524 mg Documented by: Dextrose (Dextrose 50 % 25 Gm/50 Ml Syringe) 25 gm IVPUSH Q15M PRN; Protocol PRN Reason: per Hypoglycemia Standing Ord. Docusate Sodium (Docusate Sodium 100 Mg Capsule) 100 mg PO DAILY PRN PRN Reason: Constipation Ferrous Sulfate (Ferrous Sulfate 324 Mg Tablet.Dr) 324 mg PO DAILY [facility] Last Admin: 08/12/21 08:56 Dose: 324 mg Documented by: Glucose (Glucose Gel 15 Gm Gel..Gram.) 15 gm PO Q15M PRN; Protocol PRN Reason: per Hypoglycemia Standing Ord. Hydralazine HCl (Hydralazine Hcl 25 Mg Tablet) 25 mg PO TID [facility]; Protocol Last Admin: 08/12/21 08:56 Dose: 25 mg Documented by: Hydromorphone HCl (Hydromorphone Hcl 2 Mg Tablet) 0.5 mg PO Q4H PRN PRN Reason: moderate pain Insulin Human Lispro (Insulin Lispro 100 Unit/Ml 3 Ml Vial) 0 unit SUBCUT QIDACHS [facility]; Protocol Last Admin: 08/12/21 08:57 Dose: Not Given Documented by: Isosorbide Mononitrate (Isosorbide Mononitrate 60 Mg Tab.Er.24h) 60 mg PO DAILY [facility]; Protocol Last Admin: 08/12/21 08:55 Dose: 60 mg Documented by: Lactic Acid (Ammonium Lactate 12 % Cream 140 Gm Tube) 1 appl TOPICAL DAILY [facility]; Protocol Last Admin: 08/12/21 08:57 Dose: 1 appl Documented by: Metolazone (Metolazone 5 Mg Tablet) 5 mg PO DAILY [facility] Last Admin: 08/11/21 08:08 Dose: 5 mg Documented by: Metoprolol Succinate (Metoprolol Succinate Er 25 Mg Tab.Er.24h) 25 mg PO DAILY [facility]; Protocol Last Admin: 08/12/21 08:57 Dose: 25 mg Documented by: Omeprazole (Omeprazole 40 Mg Capsule.) 40 mg PO BID@0630,1630 [facility] Last Admin: 08/12/21 05:35 Dose: 40 mg Documented by: Ondansetron HCl (Ondansetron Hcl 4 Mg/2 Ml Vial) 4 mg IVPUSH Q8H PRN PRN Reason: Nausea and Vomiting Last Admin: 07/19/21 06:16 Dose: 4 mg Documented by: Pharmacy Consult (Consult Rx Perform Med Rec) 1 each MISCELLANE ONCE PRN PRN Reason: Consult order Potassium Chloride (Potassium Chloride Er 20 Meq Tab.Er.Prt) 40 meq PO DAILY@1230 [facility] Last Admin: 08/11/21 11:51 Dose: 40 meq Documented by: Potassium Chloride (Potassium Chloride Er 20 Meq Tab.Er.Prt) 20 meq PO BID [facility] Last Admin: 08/12/21 08:55 Dose: 20 meq Documented by: Sodium Chloride (0.9 % Sodium Chloride Flush 3 Ml Syringe) 3 ml IVFLUSH QSHIFT [facility] Last Admin: 08/12/21 08:57 Dose: 3 ml Documented by: Torsemide (Torsemide 20 Mg Tablet) 100 mg PO BID [facility]; Protocol Last Admin: 08/12/21 08:56 Dose: 100 mg Documented by: Warfarin Sodium (Warfarin Sodium 1 Mg Tablet) 1 mg PO DAILY@1800 [facility] Last Admin: 08/12/21 09:10 Dose: Not Given Documented by: Home Medications Medication Instructions Recorded Confirmed Type amitriptyline 50 mg tablet 1 tab PO DAILY 05/08/20 08/18/21 History atorvastatin 80 mg tablet 1 tab PO DAILY 05/08/20 08/18/21 History dulaglutide 1.5 mg/0.5 mL 1 mg SUBCUT QWEEK 05/08/20 08/18/21 History subcutaneous pen injector (Trulicity) insulin regular hum U-500 conc 500 20 unit SUBCUT QAM 05/08/20 08/18/21 History unit/mL subcutaneous soln (Humulin R U-500 (Concentrated) Insulin) metoprolol succinate 25 mg 1 tab PO DAILY 05/08/20 08/18/21 History tablet,extended release 24 hr warfarin 2.5 mg tablet 2 tab PO LU 05/08/20 08/18/21 History amitriptyline 50 mg tablet 150 mg PO BEDTIME 07/17/21 08/18/21 History ascorbic acid (vitamin C) 500 mg 500 mg PO DAILY 07/17/21 08/18/21 History tablet hydralazine 25 mg tablet 1 tab PO TID 07/17/21 08/18/21 History insulin regular hum U-500 conc 500 10 unit SUBCUT BEDTIME 07/17/21 08/18/21 History unit/mL subcutaneous soln (Humulin R U-500 (Concentrated) Insulin) isosorbide mononitrate 60 mg 1 tab PO DAILY 07/17/21 08/18/21 History tablet,extended release 24 hr metolazone 5 mg tablet 1 tab PO DAILY 07/17/21 08/18/21 History torsemide 100 mg tablet 1 tab PO BID 07/17/21 08/18/21 History warfarin 2.5 mg tablet 1 tab PO MOTUWETHFRSA 07/17/21 08/18/21 History Allergies Allergy/AdvReac Type Severity Reaction Status Date / Time No Known Allergies Allergy Unknown NKDA Verified 08/18/21 13:21 Physical Exam Vital signs: Vital Signs Temp 96.9 F 08/12/21 07:07 Pulse 61 08/12/21 07:07 Resp 18 08/12/21 08:04 BP 118/57 L 08/12/21 07:07 Pulse Ox 97 08/12/21 07:07 Intake & Output 08/11/21 08/12/21 08/12/21 18:59 06:59 18:59 Intake Total 360 / 660 300 / 660 Output Total 300 / 1700 1400 / 1700 800 / 800 Balance 60 / -1040 -1100 / -1040 -800 / -800 Urine Output (Average ml/kg/hr) 0.20 0.92 0.52 Intake: Intake, Oral Amount 360 / 660 300 / 660 Output: Output, Urine Amount (Catheter) 300 / 1700 1400 / 1700 800 / 800 Urethral 300 / 1700 1400 / 1700 800 / 800 Other: Meal Refused No NPO No Breakfast % Eaten 100% Lunch % Eaten 100% Urine mcknight Urine Color Bloody Bloody Bloody Continuous Bladder Irrigation Fluid - Amount Drained 3-way Urethral 600 Weight 127.5 kg - Constitutional Present: mild distress - Routine HEENT Exam Head: Present: normal inspection ENT: Present: mucous membranes moist - Routine Neck Exam Present: supple Hem/Onc Consult Result - Labs CBC & Chem 7: 08/17/21 05:37 08/17/21 05:37 Labs: Short CBC 08/12/21 Range/Units 05:46 WBC 8.7 (4.8-10.8) X10*3/uL Hgb 8.0 L (14.0-18.0) g/dl Hct 24.7 L (42.0-52.0) % Plt Count 279 (160-400) X10*3/uL BMP 08/12/21 05:46 Sodium 133 L Potassium 3.2 L Chloride 92 L Carbon Dioxide 32 H BUN 124 H Creatinine 2.79 H Calcium 8.1 L Assessment and Plan Patient Active problem list reviewed?: Yes (1) Acute blood loss anemia (ABLA) Status: Acute Assessment and plan: This is a pleasant 61-year-old gentleman who presented with systemic symptoms, back on July 17. He does have NIRAJ, on top of CKD. Over the last couple of weeks he has had hematuria. Multifactorial: He has been on warfarin. INR is elevated. Platelet dysfunction due to renal disease. Could also have a local bladder lesion. Hemoglobin is stable at 8 grams. PLAN: I would hold the Warfarin. Checked with Dr. Berry, he okayed. Will give low dose vitamin K. Can use anti fibrinolytic agent: Amicar versus tranexamic acid. If the bleeding does not resolve can give FFP. One other option would be DDAVP in the setting of platelet dysfunction from uremia. Thank you for the consult. Will follow along with you. Cc: - Time Spent With Patient Time Spent with Patient (in minutes): 30
[2021-08-12 11:40] LABS: Glucose, Whole Blood 140 mg/dL (60-115)
[2021-08-12] MEDS: Tranexamic Acid 1,000 MG in 0.9 % Sodium Chloride 50 ML 360 MG IV (11:48)
[2021-08-12] MEDS: Insulin Lispro 100 UNIT/ML 3 ML VIAL SUBCUT ×2 (11:49→20:24)
[2021-08-12] MEDS: Sodium Ferric Gluconat/Sucrose 125 MG in 0.9 % Sodium Chloride 100 ML 100 MG IV (14:22)
--- NOTE | 2021-08-12 14:33 | PC.NURSE ---
Wound assessment completed today. Patient has stage 2 pressure ulcers to bilateral buttocks and coccyx w/dry peeling skin. Cleansed with wound cleanser then a thin layer of Triad applied covered with Hydrofera blue then non woven gauze and foam dressing. Turning and repositioning needs to happen more often to prevent from getting worse. Will reiterate to nurses and techs.
--- NOTE | 2021-08-12 15:59 | P.PNNP_ITS ---
Subjective Subjective Date of Service: 08/12/21 Principal diagnosis: NIRAJ on CKD, chronic diastolic HF Interval history: Chart Reviewed. Events noted. Physical Exam Vital Signs: Vital Signs: Last Vital Signs Temp 97.6 F 08/12/21 15:42 Pulse 89 08/12/21 15:42 Resp 18 08/12/21 15:42 BP 116/68 08/12/21 15:42 Pulse Ox 98 08/12/21 15:42 Oxygen Flow Rate 3 07/22/21 04:00 BMI result Body Mass Index 39.2 Const: Other: Gen:? Awake, alert in no acute distress Neck: supple, no increased JVD Lungs: Coarse breath sound, no wheeze, no crackles Heart: irregularly irregular, no murmurs Abd: soft, non-tender, non-distended, obese :? Resolving scrotal swelling , dry blood around Camilo catheter, Camilo with bloody urine Ext: venous stasis hyperpigmentation to shins, decreased edema in both thighs and back Skin: warm/well-perfused Neuro: alert and oriented x3, no focal findings Psych: appropriate affect General: cooperative, healthy appearing, comfortable, no acute distress, alert, awake, ill appearing and lethargic Nutritional Appearance: obese Orientation/consciousness: patient oriented x3 and lethargic HENMT: Face and sinus: Yes normal facial exam Mouth: moist mucous membranes Eyes: Conjunctivae: conjunctivae normal Pupils: Equal, round and reactive pupils present Neck: Neck: Yes normal visual inspection, Yes full ROM, Yes trachea midline, Yes supple, Yes JVD and Yes no JVD Chest: Chest palpation & inspection: normal inspection of the chest Resp: Effort & Inspection: normal respiratory effort, able to speak in complete sentences, decreased respiratory effort, not labored and no respiratory distress Auscultation: clear to auscultation bilaterally, no crackles, no rales, no rhonchi, no wheezes and diminished lung sounds Cardio: Jugular venous distension: JVD present and JVD Palpation: normal PMI Rate: regular rate Rhythm: abnormal rhythm irregularly irregular Heart sounds: S1 normal heart sound present, S2 normal heart sound present, no click, no gallops, Murmur heart sound present systolic III/ and no rubs Peripheral pulses: Peripheral pulses 2+ throughout GI: Inspection: Yes normal to inspection, No distended, Yes Abdominal panniculus present and Yes obesity Palpation (GI): Soft to palpation Auscultation: normal bowel sounds Back/Spine/Pelvis: Cervical Spine: normal cervical lordosis Thoracic/Lumbar Spine: thoracic and lumbar spine normal to inspection Skin: General skin exam: no rashes or lesions noted and ecchymosis Lesions: other Neuro: General: patient oriented x3, tone normal and moves all extremities Cranial nerves: Yes CN's II-XII intact bilaterally, Yes Equal, round and reactive pupils present, Yes Nystagmus not present, Yes Midline tongue present and Yes Other cranial nerve findings present Cognition (Neuro): normal cognition Motor exam (neuro): Pronator motor function not present and no tremor noted Extrem: General: Yes normal to inspection, Yes capillary refill normal, No clubbing, No cyanosis, Yes edema (Improving) and Yes other Psych: Mental Status: other Objective Data Labs CBC & Chem 7: 08/12/21 05:46 08/12/21 05:46 Labs: Laboratory Results - last 24 hr 08/11/21 08/11/21 08/12/21 16:30 20:03 05:46 WBC 8.7 RBC 2.82 L Hgb 8.0 L Hct 24.7 L MCV 87.6 MCH 28.4 MCHC 32.4 RDW 16.0 Plt Count 279 MPV 9.2 L Absolute Nucleated RBC 0.000 Nucleated RBC % (auto) 0.0 PT INR Sodium Potassium Chloride Carbon Dioxide Anion Gap BUN Creatinine Estim Creat Clear Calc Estimated GFR POC Glucose 304 H 84 Random Glucose Estimat Average Glucose Hemoglobin A1c % Calcium 08/12/21 08/12/21 08/12/21 05:46 05:46 05:46 WBC RBC Hgb Hct MCV MCH MCHC RDW Plt Count MPV Absolute Nucleated RBC Nucleated RBC % (auto) PT 18.7 H INR 1.6 H Sodium 133 L Potassium 3.2 L Chloride 92 L Carbon Dioxide 32 H Anion Gap 12 BUN 124 H Creatinine 2.79 H Estim Creat Clear Calc 38.7 Estimated GFR 23 POC Glucose Random Glucose 103 Estimat Average Glucose Cancelled Hemoglobin A1c % Cancelled Calcium 8.1 L 08/12/21 08/12/21 07:15 11:31 WBC RBC Hgb Hct MCV MCH MCHC RDW Plt Count MPV Absolute Nucleated RBC Nucleated RBC % (auto) PT INR Sodium Potassium Chloride Carbon Dioxide Anion Gap BUN Creatinine Estim Creat Clear Calc Estimated GFR POC Glucose 95 140 H Random Glucose Estimat Average Glucose Hemoglobin A1c % Calcium Microbiology Microbiology Results: Microbiology 07/17/21 15:05 Blood - Venous Blood Culture - Final No growth after 5 days. 07/17/21 14:48 Blood - Venous Blood Culture - Final No growth after 5 days. Procedures Date of Service Date of Service: 08/12/21 Assessment & Plan Assessment and plan (1) Acute blood loss anemia (ABLA): Status: Acute Plan 61yo M with HTN, HFpEF with cardioMEMS device in place, HLD, CAD, DM2, DARLENE, severe pHTN, AF on warfarin, CKD3-4, hx CVA, polycythemic vera, chronic hypoxic respiratory failure on 2L recent admission to [facility] for CHF exacerbation presenting with nausea/vomiting, dizziness NIRAJ on CKD stage 3: Creatinine of 2.7, urea 120s Avoid nephrotoxic medications Urine studies for am to include (UUN, U-Na, U-Cr) acute on chronic HFpEF Continue Torsemide home dose follow BMP and BNP Time Spent With Patient Time: Total time spent is greater than 50% in coordination of care (as documented) at patient's floor/unit and/or counseling patient: Progress Note: Quality Stroke Does the patient have a stroke diagnosis?: No
[2021-08-12 16:19] LABS: Glucose, Whole Blood 137 mg/dL (60-115)
[2021-08-12 19:18] LABS: Appearance Urine CLOUDY; Color Urine BROWN; Glucose Urine UA NEG (NEG); Leukocyte Esterase Urine 3+ (NEG); Nitrite Urine POS (NEG); UACC Culture Trigger YES; Urine Blood 3+ (NEG); Urine Ketones NEG (NEG); Urine Protein 2+ MG/DL (NEG-TRACE)
[2021-08-12 19:25] LABS: Bacteria Urine 3+ /LPF; Squamous Epithelial Cell Urine 1+ /LPF
[2021-08-12 20:10] LABS: Glucose, Whole Blood 139 mg/dL (60-115)
[2021-08-12] MEDS: Warfarin Sodium 1 MG TABLET PO (20:23)
[2021-08-12] MEDS: Amitriptyline HCl 25 MG TABLET 75 MG PO (20:23)
[2021-08-13] VITALS (9 sets, daily range): BP systolic 103–114; BP diastolic 60–80; PULSE 63–76; RESP 14–20; TEMP 35.8–36.5; O2SAT 95–99
[2021-08-13 06:22] LABS: Hematocrit 24.8 % (42.0-52.0); Mean Corpuscular HGB Conc 32.3 g/dl (31.0-36.0); Mean Corpuscular Hemoglobin 28.7 pg (27.0-33.0); Mean Corpuscular Volume 88.9 fL (80.0-98.0); Mean Platelet Volume 9.2 fL (9.4-12.4); Platelet Count 312 X10*3/uL (160-400); Red Blood Count 2.79 X10*6/uL (4.60-5.80); Red Cell Distribution Width 16.9 % (11.0-16.0); White Blood Count 8.2 X10*3/uL (4.8-10.8)
[2021-08-13 06:26] LABS: INTERNATIONAL NORM RATIO 1.6 (0.9-1.1); Prothrombin Time 18.5 SEC (9.9-13.0)
[2021-08-13] MEDS: Omeprazole 40 MG CAPSULE.DR PO ×2 (06:28→16:15)
[2021-08-13 06:55] LABS: Anion Gap 12 (12-20); Blood Urea Nitrogen 116 mg/dL (9-16); Calcium 7.9 mg/dL (8.4-10.2); Carbon Dioxide 34 mmol/L (22-29); Chloride 91 mmol/L (96-108); Creatinine Clr Calc Pharmacy 39.4; Estimated Glomerular Filt Rate 24; Glucose Random 148 mg/dL (60-115); Potassium 3.3 mmol/L (3.3-5.1); Sodium 134 mmol/L (135-145)
[2021-08-13 07:28] LABS: Glucose, Whole Blood 141 mg/dL (60-115)
[2021-08-13] MEDS: Torsemide 20 MG TABLET 100 MG PO ×2 (07:29→19:59)
[2021-08-13] MEDS: Metoprolol Succinate ER 25 MG TAB.ER.24H PO (07:30)
[2021-08-13] MEDS: Potassium Chloride ER 20 MEQ TAB.ER.PRT PO ×2 (07:31→19:59)
[2021-08-13] MEDS: Atorvastatin Calcium 80 MG TABLET PO (07:31)
[2021-08-13] MEDS: Isosorbide Mononitrate 60 MG TAB.ER.24H PO (07:31)
[2021-08-13] MEDS: Ascorbic Acid 500 MG TABLET PO (07:32)
[2021-08-13] MEDS: Ferrous Sulfate 324 MG TABLET.DR PO (07:32)
[2021-08-13] MEDS: 0.9 % Sodium Chloride Flush 3 ML SYRINGE IVFLUSH ×3 (07:32→20:00)
[2021-08-13] MEDS: hydrALAZINE HCl 25 MG TABLET PO ×3 (07:32→19:59)
[2021-08-13] MEDS: Insulin Lispro 100 UNIT/ML 3 ML VIAL SUBCUT ×4 (07:39→19:59)
[2021-08-13] MEDS: HYDROmorphone HCl 2 MG TABLET 0.5 MG PO ×3 (07:40→16:14)
[2021-08-13] MEDS: Ammonium Lactate 12 % Cream 140 GM TUBE 1 APPL TOPICAL (07:43)
[2021-08-13] MEDS: Potassium Chloride ER 20 MEQ TAB.ER.PRT 40 MEQ PO ×2 (08:31→11:50)
[2021-08-13] MEDS: Sodium Ferric Gluconat/Sucrose 125 MG in 0.9 % Sodium Chloride 100 ML 100 MG IV (09:23)
[2021-08-13] MEDS: Tranexamic Acid 1,000 MG in 0.9 % Sodium Chloride 50 ML 360 MG IV (10:37)
[2021-08-13] MEDS: Acetaminophen 325 MG TABLET 650 MG PO (10:54)
[2021-08-13 11:31] LABS: Glucose, Whole Blood 125 mg/dL (60-115)
--- NOTE | 2021-08-13 11:59 | HO.PM.IMPN ---
Subjective Subjective Date of Service: 08/13/21 Interval History: the patient was seen and evaluated this morning Still having hematuria but seems less than before blood still leaking around the Mcknight and slower rate Hb remained around 8 No reported other overnight events. Systemic review: No fever, chills but has generalized weakness No chest pain, palpitation No shortness of breath or coughing No abdominal pain, nausea or vomiting Hematuria No any rash or wounds Physical Exam Vital Signs: Vital Signs: Last Vital Signs Temp 97.7 F 08/13/21 11:21 Pulse 68 08/13/21 11:21 Resp 20 08/13/21 11:21 BP 114/68 08/13/21 11:21 Pulse Ox 95 08/13/21 11:21 Oxygen Flow Rate 3 07/22/21 04:00 BMI result Body Mass Index 39.2 Const: Other: Gen:? Awake, alert in no acute distress Neck: supple, no increased JVD Lungs: Coarse breath sound, no wheeze, no crackles Heart: irregularly irregular, no murmurs Abd: soft, non-tender, non-distended, obese :? Resolving scrotal swelling , dry blood around Mcknight catheter, Mcknight with bloody urine Ext: venous stasis hyperpigmentation to shins, decreased edema in both thighs and back Skin: warm/well-perfused Neuro: alert and oriented x3, no focal findings Psych: appropriate affect Objective Data Active Medications Acetaminophen (Acetaminophen 325 Mg Tablet) 650 mg PO Q6H PRN PRN Reason: Pain, Mild (Pain Scale 1-3) Last Admin: 08/13/21 10:54 Dose: 650 mg Documented by: LAZARUS Al Hydroxide/Mg Hydroxide (Magnesium Hydrox/Alum Hydrox 30 Ml Oral.Susp) 30 ml PO Q4H PRN PRN Reason: heartbirun Last Admin: 07/19/21 00:23 Dose: 30 ml Documented by: GIL Amitriptyline HCl (Amitriptyline Hcl 50 Mg Tablet) 50 mg PO DAILY [facility] Last Admin: 08/11/21 08:08 Dose: 50 mg Documented by: SHARAD Amitriptyline HCl (Amitriptyline Hcl 25 Mg Tablet) 75 mg PO BEDTIME [facility] Last Admin: 08/12/21 20:23 Dose: 75 mg Documented by: ASTER Ascorbic Acid (Ascorbic Acid 500 Mg Tablet) 500 mg PO DAILY [facility] Last Admin: 08/13/21 07:32 Dose: 500 mg Documented by: LAZARUS Atorvastatin Calcium (Atorvastatin Calcium 80 Mg Tablet) 80 mg PO DAILY [facility] Last Admin: 08/13/21 07:31 Dose: 80 mg Documented by: LAZARUS Bismuth Subsalicylate (Bismuth Subsalicylate Liquid 524 Mg/30 Ml Oral.Susp) 524 mg PO QID PRN PRN Reason: Indigestion Last Admin: 07/18/21 15:06 Dose: 524 mg Documented by: LORE Dextrose (Dextrose 50 % 25 Gm/50 Ml Syringe) 25 gm IVPUSH Q15M PRN; Protocol PRN Reason: per Hypoglycemia Standing Ord. Docusate Sodium (Docusate Sodium 100 Mg Capsule) 100 mg PO DAILY PRN PRN Reason: Constipation Ferrous Sulfate (Ferrous Sulfate 324 Mg Tablet.Dr) 324 mg PO DAILY [facility] Last Admin: 08/13/21 07:32 Dose: 324 mg Documented by: LAZARUS Glucose (Glucose Gel 15 Gm Gel..Gram.) 15 gm PO Q15M PRN; Protocol PRN Reason: per Hypoglycemia Standing Ord. Hydralazine HCl (Hydralazine Hcl 25 Mg Tablet) 25 mg PO TID [facility]; Protocol Last Admin: 08/13/21 07:32 Dose: 25 mg Documented by: LAZARUS Hydromorphone HCl (Hydromorphone Hcl 2 Mg Tablet) 0.5 mg PO Q4H PRN PRN Reason: moderate pain Last Admin: 08/13/21 11:50 Dose: 0.5 mg Documented by: LAZARUS Ferric Sodium Gluconate Complex 125 mg/ Sodium Chloride 110 mls @ 100 mls/hr IV DAILY [facility] Stop: 08/14/21 10:05 Last Infusion: 08/13/21 10:29 Dose: 0 mls/hr Documented by: LAZARUS Tranexamic Acid 1,000 mg/ (Sodium Chloride) 60 mls @ 360 mls/hr IV DAILY [facility] Stop: 08/18/21 09:09 Last Infusion: 08/13/21 10:48 Dose: 0 mls/hr Documented by: LAZARUS Insulin Human Lispro (Insulin Lispro 100 Unit/Ml 3 Ml Vial) 0 unit SUBCUT QIDACHS [facility]; Protocol Last Admin: 08/13/21 11:50 Dose: 2 unit Documented by: LAZARUS Isosorbide Mononitrate (Isosorbide Mononitrate 60 Mg Tab.Er.24h) 60 mg PO DAILY [facility]; Protocol Last Admin: 08/13/21 07:31 Dose: 60 mg Documented by: LAZARUS Lactic Acid (Ammonium Lactate 12 % Cream 140 Gm Tube) 1 appl TOPICAL DAILY [facility]; Protocol Last Admin: 08/13/21 07:43 Dose: 1 appl Documented by: LAZARUS Metolazone (Metolazone 5 Mg Tablet) 5 mg PO DAILY [facility] Last Admin: 08/11/21 08:08 Dose: 5 mg Documented by: SHARAD Metoprolol Succinate (Metoprolol Succinate Er 25 Mg Tab.Er.24h) 25 mg PO DAILY [facility]; Protocol Last Admin: 08/13/21 07:30 Dose: 25 mg Documented by: LAZARUS Omeprazole (Omeprazole 40 Mg Capsule.Dr) 40 mg PO BID@0630,1630 [facility] Last Admin: 08/13/21 06:28 Dose: 40 mg Documented by: ASTER Ondansetron HCl (Ondansetron Hcl 4 Mg/2 Ml Vial) 4 mg IVPUSH Q8H PRN PRN Reason: Nausea and Vomiting Last Admin: 07/19/21 06:16 Dose: 4 mg Documented by: GIL Pharmacy Consult (Consult Rx Perform Med Rec) 1 each MISCELLANE ONCE PRN PRN Reason: Consult order Potassium Chloride (Potassium Chloride Er 20 Meq Tab.Er.Prt) 40 meq PO DAILY@1230 [facility] Last Admin: 08/13/21 11:50 Dose: 40 meq Documented by: LAZARUS Potassium Chloride (Potassium Chloride Er 20 Meq Tab.Er.Prt) 20 meq PO BID [facility] Last Admin: 08/13/21 07:31 Dose: 20 meq Documented by: LAZARUS Sodium Chloride (0.9 % Sodium Chloride Flush 3 Ml Syringe) 3 ml IVFLUSH QSHIFT [facility] Last Admin: 08/13/21 07:32 Dose: 3 ml Documented by: LAZARUS Torsemide (Torsemide 20 Mg Tablet) 100 mg PO BID [facility]; Protocol Last Admin: 08/13/21 07:29 Dose: 100 mg Documented by: LAZARUS Warfarin Sodium (Warfarin Sodium 1 Mg Tablet) 1 mg PO DAILY@1800 [facility] Last Admin: 08/12/21 20:23 Dose: 1 mg Documented by: ASTER Labs CBC & Chem 7: 08/13/21 05:19 08/13/21 05:19 Labs: Laboratory Results - last 24 hr 08/12/21 08/12/21 08/12/21 16:14 18:35 20:02 MCV MCH MCHC RDW Plt Count MPV Absolute Nucleated RBC Nucleated RBC % (auto) PT INR Anion Gap Estim Creat Clear Calc Estimated GFR POC Glucose 137 H 139 H Random Glucose Calcium Urine Color BROWN A Urine Appearance CLOUDY Urine pH 6.0 Ur Specific [place] 1.010 Urine Protein 2+ H Urine Glucose (UA) NEG Urine Ketones NEG Urine Blood 3+ H Urine Nitrite POS H Ur Leukocyte Esterase 3+ H Urine RBC 5-9 H Urine WBC 76-150 H Ur Squamous Epith Cells 1+ Urine Bacteria 3+ 08/13/21 08/13/21 08/13/21 05:19 05:19 05:19 MCV 88.9 MCH 28.7 MCHC 32.3 RDW 16.9 H Plt Count 312 MPV 9.2 L Absolute Nucleated RBC 0.000 Nucleated RBC % (auto) 0.0 PT 18.5 H INR 1.6 H Anion Gap 12 Estim Creat Clear Calc 39.4 Estimated GFR 24 POC Glucose Random Glucose 148 H D Calcium 7.9 L Urine Color Urine Appearance Urine pH Ur Specific [place] Urine Protein Urine Glucose (UA) Urine Ketones Urine Blood Urine Nitrite Ur Leukocyte Esterase Urine RBC Urine WBC Ur Squamous Epith Cells Urine Bacteria 08/13/21 08/13/21 07:13 11:27 MCV MCH MCHC RDW Plt Count MPV Absolute Nucleated RBC Nucleated RBC % (auto) PT INR Anion Gap Estim Creat Clear Calc Estimated GFR POC Glucose 141 H 125 H Random Glucose Calcium Urine Color Urine Appearance Urine pH Ur Specific [place] Urine Protein Urine Glucose (UA) Urine Ketones Urine Blood Urine Nitrite Ur Leukocyte Esterase Urine RBC Urine WBC Ur Squamous Epith Cells Urine Bacteria Microbiology Microbiology Results: Microbiology 08/12/21 Unknown Urine Culture - Preliminary Urine Catheterized - Mcknight Catheter Gram negative jose Assessment and Plan (1) Gross hematuria: Status: Acute (2) Urinary retention with incomplete bladder emptying: Status: Acute (3) Acute blood loss anemia (ABLA): Status: Acute (4) Acute on chronic diastolic HF (heart failure): Status: Acute Plan 61yo M with HTN, HFpEF with cardioMEMS device in place, HLD, CAD, DM2, DARLENE, severe pHTN, AF on warfarin, CKD3-4, hx CVA, polycythemic vera, chronic hypoxic respiratory failure on 2L recent admission to [facility] for CHF exacerbation presenting with nausea/vomiting, dizziness Acute blood loss anemia 2/2 hematuria Hemoglobin dropped to 8, remained 8 after 1 unit transfusion Hematuria was likely due to traumatic Mcknight placement while on anticoagulation failed voiding trial 08/06, mcknight reinserted, continues to bleed d/w urogoly plan for capping with intermittent drainage To give IV iron Monitor H&H Urology following, try to bring BUN down to improve platelet function Started on TXA for 1 week Pending Hematology evaluation Physical deconditioning Secondary to prolonged hospital stay and activity Refuses PT sessions on occasions continue physical therapy with plan to placement Monty I on CKD stage 3 Creatinine of 2.7, urea 110s Avoid nephrotoxic medications Nephrology input appreciated acute on chronic HFpEF diuresed almost 25L druing this hospital stay TTE 07/07/20 LVEF 50%, no RWMA, mild , mod pulm HTN Hold metolazone for now Continue Torsemide home dose follow BMP and BNP Scrotal swelling Resolved permanent AF continue metoprolol; d/montez digoxin due to CKD, restart 1mg Coumadin keep INR dropped 1.6, continue warfarin CKD4 stable acute pontine CVA Improved conitnue statin coumadin hypoK continue potassium 40meq at lunch, 20meq am and pm for 80meq total monitor nausea/vomiting with 1 episode blood-streaked vomitus Brinda-Reyes tear.? has not recurred since admission s/p IV Protonix, now on oral PPI, repeat hematocrit is stable chronic hypoxic respiratory failure on 2L at home DM2 with hypyerglycemia, A1c 8.6 blood sugar stable, on correction-dose lispro.? on U-500 + Trulicity at home.? Continue diabetic diet and insulin sliding scale. CAD episode of chest pain resolved, troponins flat, continue statin, metoprolol, Imdur HTN stable blood pressure on metoprolol, low-dose hydralazine, Imdur, (amlodipine discontinued) morbid obesity outpt bariatrics evaluation can be considered DARLENE continue CPAP at bedtime and during naps VTE ppx on warfari dispo plan home with VNA Quality Stroke Does the patient have a stroke diagnosis?: No VTE Prior VTE?: No VTE Risk Level:: Medical - moderate - high VTE Device Contraindication: N/A - Device Ordered VTE Drug Contraindication: Treatment Not Indicated
--- NOTE | 2021-08-13 15:02 | PC.NURSE ---
Pt refusing to get out of bed, repositioned in bed every 2 hours.
[2021-08-13 15:59] LABS: Glucose, Whole Blood 178 mg/dL (60-115)
--- NOTE | 2021-08-13 16:56 | P.PNNP_ITS ---
Subjective Subjective Date of Service: 08/13/21 Principal diagnosis: NIRAJ on CKD, chronic diastolic HF Interval history: the patient was seen and evaluated this morning Still having hematuria but seems less than before blood still leaking around the Camilo and slower rate Hb remained around 8 No reported other overnight events. Systemic review: No fever, chills but has generalized weakness No chest pain, palpitation No shortness of breath or coughing No abdominal pain, nausea or vomiting Hematuria No any rash or wounds Physical Exam Vital Signs: Vital Signs: Last Vital Signs Temp 97.5 F 08/13/21 15:32 Pulse 68 08/13/21 15:32 Resp 18 08/13/21 15:32 BP 103/60 08/13/21 15:32 Pulse Ox 99 08/13/21 15:32 Oxygen Flow Rate 3 07/22/21 04:00 BMI result Body Mass Index 39.2 Objective Data Labs CBC & Chem 7: 08/13/21 05:19 08/13/21 05:19 Labs: Laboratory Results - last 24 hr 08/12/21 08/12/21 08/13/21 18:35 20:02 05:19 WBC RBC Hgb Hct MCV MCH MCHC RDW Plt Count MPV Absolute Nucleated RBC Nucleated RBC % (auto) PT 18.5 H INR 1.6 H Sodium Potassium Chloride Carbon Dioxide Anion Gap BUN Creatinine Estim Creat Clear Calc Estimated GFR POC Glucose 139 H Random Glucose Calcium Urine Color BROWN A Urine Appearance CLOUDY Urine pH 6.0 Ur Specific [place] 1.010 Urine Protein 2+ H Urine Glucose (UA) NEG Urine Ketones NEG Urine Blood 3+ H Urine Nitrite POS H Ur Leukocyte Esterase 3+ H Urine RBC 5-9 H Urine WBC 76-150 H Ur Squamous Epith Cells 1+ Urine Bacteria 3+ 08/13/21 08/13/21 08/13/21 05:19 05:19 07:13 WBC 8.2 RBC 2.79 L Hgb 8.0 L Hct 24.8 L MCV 88.9 MCH 28.7 MCHC 32.3 RDW 16.9 H Plt Count 312 MPV 9.2 L Absolute Nucleated RBC 0.000 Nucleated RBC % (auto) 0.0 PT INR Sodium 134 L Potassium 3.3 Chloride 91 L Carbon Dioxide 34 H Anion Gap 12 BUN 116 H Creatinine 2.74 H Estim Creat Clear Calc 39.4 Estimated GFR 24 POC Glucose 141 H Random Glucose 148 H D Calcium 7.9 L Urine Color Urine Appearance Urine pH Ur Specific [place] Urine Protein Urine Glucose (UA) Urine Ketones Urine Blood Urine Nitrite Ur Leukocyte Esterase Urine RBC Urine WBC Ur Squamous Epith Cells Urine Bacteria 08/13/21 08/13/21 11:27 15:35 WBC RBC Hgb Hct MCV MCH MCHC RDW Plt Count MPV Absolute Nucleated RBC Nucleated RBC % (auto) PT INR Sodium Potassium Chloride Carbon Dioxide Anion Gap BUN Creatinine Estim Creat Clear Calc Estimated GFR POC Glucose 125 H 178 H Random Glucose Calcium Urine Color Urine Appearance Urine pH Ur Specific [place] Urine Protein Urine Glucose (UA) Urine Ketones Urine Blood Urine Nitrite Ur Leukocyte Esterase Urine RBC Urine WBC Ur Squamous Epith Cells Urine Bacteria Microbiology Microbiology Results: Microbiology 08/12/21 Unknown Urine Catheterized - Camilo Catheter Urine Culture - Preliminary Gram negative jose 07/17/21 15:05 Blood - Venous Blood Culture - Final No growth after 5 days. 07/17/21 14:48 Blood - Venous Blood Culture - Final No growth after 5 days. Procedures Date of Service Date of Service: 08/13/21 Assessment & Plan Assessment and plan (1) NIRAJ (acute kidney injury): Status: Acute Plan 61yo M with HTN, HFpEF with cardioMEMS device in place, HLD, CAD, DM2, DARLENE, severe pHTN, AF on warfarin, CKD3-4, hx CVA, polycythemic vera, chronic hypoxic respiratory failure on 2L recent admission to [facility] for CHF exacerbation presenting with nausea/vomiting, dizziness NIRAJ on CKD stage 3: Creatinine of 2.74, urea 120s Avoid nephrotoxic medications acute on chronic HFpEF Continue Torsemide home dose. follow BMP and BNP continue iron and LIDYA for anemia. Time Spent With Patient Time: Total time spent is greater than 50% in coordination of care (as documented) at patient's floor/unit and/or counseling patient: Time with patient: 25 - 35 minutes Progress Note: Quality Stroke Does the patient have a stroke diagnosis?: No
[2021-08-13] MEDS: Warfarin Sodium 1 MG TABLET PO (17:11)
[2021-08-13] MEDS: Amitriptyline HCl 25 MG TABLET 75 MG PO (19:59)
[2021-08-13 20:00] LABS: Glucose, Whole Blood 183 mg/dL (60-115)
--- NOTE | 2021-08-14 00:44 | MHC.PIE ---
p; c observer noted 7 beat v tach. i; dr jeffers notified. new labs ordered e; will cont to monitor
[2021-08-14 01:50] LABS: Anion Gap 14 (12-20); Blood Urea Nitrogen 112 mg/dL (9-16); Calcium 7.9 mg/dL (8.4-10.2); Carbon Dioxide 31 mmol/L (22-29); Chloride 91 mmol/L (96-108); Estimated Glomerular Filt Rate 24; Glucose Random 130 mg/dL (60-115); Potassium 3.4 mmol/L (3.3-5.1); Sodium 133 mmol/L (135-145)
[2021-08-14 04:00] VITALS: BP 128/67; PULSE 79; RESP 20; TEMP 36.1; O2SAT 95
[2021-08-14] MEDS: Omeprazole 40 MG CAPSULE.DR PO ×2 (04:06→16:03)
[2021-08-14 05:54] LABS: Hematocrit 24.7 % (42.0-52.0); Mean Corpuscular HGB Conc 32.4 g/dl (31.0-36.0); Mean Corpuscular Hemoglobin 29.1 pg (27.0-33.0); Mean Corpuscular Volume 89.8 fL (80.0-98.0); Mean Platelet Volume 8.9 fL (9.4-12.4); Platelet Count 299 X10*3/uL (160-400); Red Blood Count 2.75 X10*6/uL (4.60-5.80); Red Cell Distribution Width 17.2 % (11.0-16.0); White Blood Count 9.7 X10*3/uL (4.8-10.8)
[2021-08-14 06:00] LABS: INTERNATIONAL NORM RATIO 1.5 (0.9-1.1); Prothrombin Time 17.7 SEC (9.9-13.0)
[2021-08-14 06:15] LABS: B Type Natriuretic Peptide 395 pg/mL (<100)
[2021-08-14 06:20] LABS: Anion Gap 15 (12-20); Blood Urea Nitrogen 113 mg/dL (9-16); Calcium 7.9 mg/dL (8.4-10.2); Carbon Dioxide 31 mmol/L (22-29); Chloride 92 mmol/L (96-108); Creatinine Clr Calc Pharmacy 39.4; Estimated Glomerular Filt Rate 24; Glucose Random 154 mg/dL (60-115); Potassium 3.5 mmol/L (3.3-5.1); Sodium 134 mmol/L (135-145)
[2021-08-14 07:12] VITALS: BP 139/71; PULSE 83; RESP 22; TEMP 36.7; O2SAT 98
[2021-08-14 07:27] LABS: Glucose, Whole Blood 136 mg/dL (60-115)
[2021-08-14] MEDS: hydrALAZINE HCl 25 MG TABLET PO ×3 (07:57→19:59)
[2021-08-14] MEDS: 0.9 % Sodium Chloride Flush 3 ML SYRINGE IVFLUSH ×3 (07:57→20:03)
[2021-08-14] MEDS: Ammonium Lactate 12 % Cream 140 GM TUBE 1 APPL TOPICAL (07:58)
[2021-08-14] MEDS: Isosorbide Mononitrate 60 MG TAB.ER.24H PO (07:58)
[2021-08-14] MEDS: Torsemide 20 MG TABLET 100 MG PO ×2 (07:58→20:00)
[2021-08-14] MEDS: Ferrous Sulfate 324 MG TABLET.DR PO (07:58)
[2021-08-14] MEDS: Atorvastatin Calcium 80 MG TABLET PO (07:58)
[2021-08-14] MEDS: Ascorbic Acid 500 MG TABLET PO (07:58)
[2021-08-14] MEDS: Metoprolol Succinate ER 25 MG TAB.ER.24H PO (07:58)
[2021-08-14] MEDS: Potassium Chloride ER 20 MEQ TAB.ER.PRT PO ×2 (07:59→20:00)
[2021-08-14] MEDS: Tranexamic Acid 1,000 MG in 0.9 % Sodium Chloride 50 ML 360 MG IV (10:02)
--- NOTE | 2021-08-14 10:15 | P.PNIM_ITS ---
Subjective Subjective Date of Service: 08/14/21 Interval History: the patient was seen and evaluated this morning Hematuria partially improved, not leaking around the Mcknight catheter INR dropped to 1.5, patient aware Hb remained around 8 No reported other overnight events. Systemic review: No fever, chills but has generalized weakness No chest pain, palpitation No shortness of breath or coughing No abdominal pain, nausea or vomiting Hematuria No any rash or wounds Physical Exam Vital Signs: Vital Signs: Last Vital Signs Temp 98.0 F 08/14/21 07:12 Pulse 83 08/14/21 07:12 Resp 22 H 08/14/21 07:12 BP 139/71 08/14/21 07:12 Pulse Ox 98 08/14/21 07:12 Oxygen Flow Rate 3 07/22/21 04:00 BMI result Body Mass Index 39.2 Const: Other: Gen:? Awake, alert in no acute distress Neck: supple, no increased JVD Lungs: Coarse breath sound, no wheeze, no crackles Heart: irregularly irregular, no murmurs Abd: soft, non-tender, non-distended, obese :? Resolved scrotal swelling , dry blood around Mcknight catheter but less bleeding Ext: venous stasis hyperpigmentation to shins, decreased edema in both thighs and back Skin: warm/well-perfused Neuro: alert and oriented x3, no focal findings Psych: appropriate affect Objective Data Active Medications Acetaminophen (Acetaminophen 325 Mg Tablet) 650 mg PO Q6H PRN PRN Reason: Pain, Mild (Pain Scale 1-3) Last Admin: 08/13/21 10:54 Dose: 650 mg Documented by: LAZARUS Al Hydroxide/Mg Hydroxide (Magnesium Hydrox/Alum Hydrox 30 Ml Oral.Susp) 30 ml PO Q4H PRN PRN Reason: heartbirun Last Admin: 07/19/21 00:23 Dose: 30 ml Documented by: GIL Amitriptyline HCl (Amitriptyline Hcl 50 Mg Tablet) 50 mg PO DAILY [facility] Last Admin: 08/11/21 08:08 Dose: 50 mg Documented by: SHARAD Amitriptyline HCl (Amitriptyline Hcl 25 Mg Tablet) 75 mg PO BEDTIME [facility] Last Admin: 08/13/21 19:59 Dose: 75 mg Documented by: ASTER Ascorbic Acid (Ascorbic Acid 500 Mg Tablet) 500 mg PO DAILY [facility] Last Admin: 08/14/21 07:58 Dose: 500 mg Documented by: GALEN Atorvastatin Calcium (Atorvastatin Calcium 80 Mg Tablet) 80 mg PO DAILY [facility] Last Admin: 08/14/21 07:58 Dose: 80 mg Documented by: GALEN Bismuth Subsalicylate (Bismuth Subsalicylate Liquid 524 Mg/30 Ml Oral.Susp) 524 mg PO QID PRN PRN Reason: Indigestion Last Admin: 07/18/21 15:06 Dose: 524 mg Documented by: LORE Dextrose (Dextrose 50 % 25 Gm/50 Ml Syringe) 25 gm IVPUSH Q15M PRN; Protocol PRN Reason: per Hypoglycemia Standing Ord. Docusate Sodium (Docusate Sodium 100 Mg Capsule) 100 mg PO DAILY PRN PRN Reason: Constipation Ferrous Sulfate (Ferrous Sulfate 324 Mg Tablet.Dr) 324 mg PO DAILY [facility] Last Admin: 08/14/21 07:58 Dose: 324 mg Documented by: GALEN Glucose (Glucose Gel 15 Gm Gel..Gram.) 15 gm PO Q15M PRN; Protocol PRN Reason: per Hypoglycemia Standing Ord. Hydralazine HCl (Hydralazine Hcl 25 Mg Tablet) 25 mg PO TID [facility]; Protocol Last Admin: 08/14/21 07:57 Dose: 25 mg Documented by: GALEN Hydromorphone HCl (Hydromorphone Hcl 2 Mg Tablet) 0.5 mg PO Q4H PRN PRN Reason: moderate pain Last Admin: 08/13/21 16:14 Dose: 0.5 mg Documented by: LAZARUS Tranexamic Acid 1,000 mg/ (Sodium Chloride) 60 mls @ 360 mls/hr IV DAILY [facility] Stop: 08/18/21 09:09 Last Admin: 08/14/21 10:02 Dose: 360 mls/hr Documented by: GALEN Insulin Human Lispro (Insulin Lispro 100 Unit/Ml 3 Ml Vial) 0 unit SUBCUT QIDACHS [facility]; Protocol Last Admin: 08/14/21 07:57 Dose: 2 unit Documented by: GALEN Isosorbide Mononitrate (Isosorbide Mononitrate 60 Mg Tab.Er.24h) 60 mg PO DAILY [facility]; Protocol Last Admin: 08/14/21 07:58 Dose: 60 mg Documented by: GALEN Lactic Acid (Ammonium Lactate 12 % Cream 140 Gm Tube) 1 appl TOPICAL DAILY [facility]; Protocol Last Admin: 08/14/21 07:58 Dose: 1 appl Documented by: GALEN Metolazone (Metolazone 5 Mg Tablet) 5 mg PO DAILY [facility] Last Admin: 08/11/21 08:08 Dose: 5 mg Documented by: SHARAD Metoprolol Succinate (Metoprolol Succinate Er 25 Mg Tab.Er.24h) 25 mg PO DAILY [facility]; Protocol Last Admin: 08/14/21 07:58 Dose: 25 mg Documented by: GALEN Omeprazole (Omeprazole 40 Mg Capsule.Dr) 40 mg PO BID@0630,1630 [facility] Last Admin: 08/14/21 04:06 Dose: 40 mg Documented by: ASTER Ondansetron HCl (Ondansetron Hcl 4 Mg/2 Ml Vial) 4 mg IVPUSH Q8H PRN PRN Reason: Nausea and Vomiting Last Admin: 07/19/21 06:16 Dose: 4 mg Documented by: GIL Pharmacy Consult (Consult Rx Perform Med Rec) 1 each MISCELLANE ONCE PRN PRN Reason: Consult order Potassium Chloride (Potassium Chloride Er 20 Meq Tab.Er.Prt) 40 meq PO DAILY@1230 [facility] Last Admin: 08/13/21 11:50 Dose: 40 meq Documented by: LAZARUS Potassium Chloride (Potassium Chloride Er 20 Meq Tab.Er.Prt) 20 meq PO BID [facility] Last Admin: 08/14/21 07:59 Dose: 20 meq Documented by: GALEN Sodium Chloride (0.9 % Sodium Chloride Flush 3 Ml Syringe) 3 ml IVFLUSH QSHIFT [facility] Last Admin: 08/14/21 07:57 Dose: 3 ml Documented by: GALEN Torsemide (Torsemide 20 Mg Tablet) 100 mg PO BID [facility]; Protocol Last Admin: 08/14/21 07:58 Dose: 100 mg Documented by: GALEN Warfarin Sodium (Warfarin Sodium 2 Mg Tablet) 2 mg PO DAILY@1800 [facility] Labs CBC & Chem 7: 08/14/21 05:42 08/14/21 05:42 Labs: Laboratory Results - last 24 hr 08/13/21 08/13/21 08/13/21 11:27 15:35 19:39 MCV MCH MCHC RDW Plt Count MPV Absolute Nucleated RBC Nucleated RBC % (auto) PT INR Anion Gap Estim Creat Clear Calc Estimated GFR POC Glucose 125 H 178 H 183 H Random Glucose Calcium Magnesium B-Natriuretic Peptide 08/14/21 08/14/21 08/14/21 01:08 05:42 05:42 MCV 89.8 MCH 29.1 MCHC 32.4 RDW 17.2 H Plt Count 299 MPV 8.9 L Absolute Nucleated RBC 0.000 Nucleated RBC % (auto) 0.0 PT 17.7 H INR 1.5 H Anion Gap 14 Estim Creat Clear Calc 40.0 Estimated GFR 24 POC Glucose Random Glucose 130 H Calcium 7.9 L Magnesium 2.0 B-Natriuretic Peptide 08/14/21 08/14/21 08/14/21 05:42 05:42 07:14 MCV MCH MCHC RDW Plt Count MPV Absolute Nucleated RBC Nucleated RBC % (auto) PT INR Anion Gap 15 Estim Creat Clear Calc 39.4 Estimated GFR 24 POC Glucose 136 H Random Glucose 154 H Calcium 7.9 L Magnesium B-Natriuretic Peptide 395 H Microbiology Microbiology Results: Microbiology 08/12/21 Unknown Urine Culture - Final Urine Catheterized - Mcknight Catheter Escherichia coli Assessment and Plan (1) Gross hematuria: Status: Acute (2) Urinary retention with incomplete bladder emptying: Status: Acute (3) Acute blood loss anemia (ABLA): Status: Acute (4) Acute on chronic diastolic HF (heart failure): Status: Acute Plan 61yo M with HTN, HFpEF with cardioMEMS device in place, HLD, CAD, DM2, DARLENE, severe pHTN, AF on warfarin, CKD3-4, hx CVA, polycythemic vera, chronic hypoxic respiratory failure on 2L recent admission to [facility] for CHF exacerbation presenting with nausea/vomiting, dizziness Acute blood loss anemia 2/2 hematuria Hemoglobin dropped to 8, remained 8 after 1 unit transfusion Hematuria was likely due to traumatic Mcknight placement while on anticoagulation failed voiding trial 2/5, mcknight reinserted, continues to bleed d/w urogoly plan for capping with intermittent drainage To give IV iron day to Monitor H&H Urology following, try to bring BUN down to improve platelet function Started on TXA for 1 week day 3 Pending Hematology evaluation Physical deconditioning Secondary to prolonged hospital stay and activity Refuses PT sessions on occasions continue physical therapy with plan to placement Monty I on CKD stage 3 Creatinine of 2.7, urea 110s Avoid nephrotoxic medications Nephrology input appreciated acute on chronic HFpEF diuresed almost 25L druing this hospital stay TTE 07/07/20 LVEF 50%, no RWMA, mild , mod pulm HTN Hold metolazone for now Continue Torsemide home dose follow BMP and BNP Scrotal swelling Resolved permanent AF continue metoprolol; d/montez digoxin due to CKD, restart 1mg Coumadin keep INR dropped 1.6, continue warfarin CKD4 stable acute pontine CVA Improved conitnue statin coumadin hypoK continue potassium 40meq at lunch, 20meq am and pm for 80meq total monitor nausea/vomiting with 1 episode blood-streaked vomitus Brinda-Reyes tear.? has not recurred since admission s/p IV Protonix, now on oral PPI, repeat hematocrit is stable chronic hypoxic respiratory failure on 2L at home DM2 with hypyerglycemia, A1c 8.6 blood sugar stable, on correction-dose lispro.? on U-500 + Trulicity at home.? Continue diabetic diet and insulin sliding scale. CAD episode of chest pain resolved, troponins flat, continue statin, metoprolol, Imdur HTN stable blood pressure on metoprolol, low-dose hydralazine, Imdur, (amlodipine discontinued) morbid obesity outpt bariatrics evaluation can be considered DARLENE continue CPAP at bedtime and during naps VTE ppx on warfari dispo plan home with VNA Quality Stroke Does the patient have a stroke diagnosis?: No VTE Prior VTE?: No VTE Risk Level:: Medical - moderate - high VTE Device Contraindication: N/A - Device Ordered VTE Drug Contraindication: Treatment Not Indicated
[2021-08-14] MEDS: Sodium Ferric Gluconat/Sucrose 125 MG in 0.9 % Sodium Chloride 100 ML 100 MG IV (10:28)
[2021-08-14] MEDS: HYDROmorphone HCl 2 MG TABLET 0.5 MG PO ×2 (10:59→15:18)
[2021-08-14 11:08] LABS: Glucose, Whole Blood 178 mg/dL (60-115)
[2021-08-14 11:34] VITALS: BP 101/57; PULSE 59; RESP 20; TEMP 36.2; O2SAT 98
[2021-08-14] MEDS: Insulin Lispro 100 UNIT/ML 3 ML VIAL SUBCUT ×3 (11:46→20:30)
[2021-08-14] MEDS: Potassium Chloride ER 20 MEQ TAB.ER.PRT 40 MEQ PO (11:46)
[2021-08-14 15:36] VITALS: BP 112/57; PULSE 70; RESP 18; TEMP 36.6; O2SAT 97
[2021-08-14 15:56] LABS: Glucose, Whole Blood 167 mg/dL (60-115)
[2021-08-14] MEDS: Warfarin Sodium 2 MG TABLET PO (17:08)
--- NOTE | 2021-08-14 18:11 | PC.NURSE ---
Pt refuses OOB. Repositioned Q2H
--- NOTE | 2021-08-14 18:58 | P.PNNP_ITS ---
Subjective Subjective Date of Service: 08/14/21 Principal diagnosis: NIRAJ on CKD, chronic diastolic HF Interval history: Chart Reviewed. Events noted. Hematuria partially improved, not leaking around the Mcknight catheter No reported other overnight events. Physical Exam Vital Signs: Vital Signs: Last Vital Signs Temp 97.8 F 08/14/21 15:36 Pulse 70 08/14/21 15:36 Resp 18 08/14/21 15:36 BP 112/57 L 08/14/21 15:36 Pulse Ox 97 08/14/21 15:36 Oxygen Flow Rate 3 07/22/21 04:00 BMI result Body Mass Index 39.2 Const: General: cooperative and no acute distress Neck: Neck: Yes no JVD Resp: Effort & Inspection: normal respiratory effort GI: Inspection: Yes normal to inspection and Yes distended Extrem: General: Yes no clubbing, cyanosis or edema Objective Data Labs CBC & Chem 7: 08/14/21 05:42 08/14/21 05:42 Labs: Laboratory Results - last 24 hr 08/13/21 08/14/21 08/14/21 19:39 01:08 05:42 WBC RBC Hgb Hct MCV MCH MCHC RDW Plt Count MPV Absolute Nucleated RBC Nucleated RBC % (auto) PT 17.7 H INR 1.5 H Sodium 133 L Potassium 3.4 Chloride 91 L Carbon Dioxide 31 H Anion Gap 14 BUN 112 H Creatinine 2.70 H Estim Creat Clear Calc 40.0 Estimated GFR 24 POC Glucose 183 H Random Glucose 130 H Calcium 7.9 L Magnesium 2.0 B-Natriuretic Peptide 08/14/21 08/14/21 08/14/21 05:42 05:42 05:42 WBC 9.7 RBC 2.75 L Hgb 8.0 L Hct 24.7 L MCV 89.8 MCH 29.1 MCHC 32.4 RDW 17.2 H Plt Count 299 MPV 8.9 L Absolute Nucleated RBC 0.000 Nucleated RBC % (auto) 0.0 PT INR Sodium 134 L Potassium 3.5 Chloride 92 L Carbon Dioxide 31 H Anion Gap 15 BUN 113 H Creatinine 2.74 H Estim Creat Clear Calc 39.4 Estimated GFR 24 POC Glucose Random Glucose 154 H Calcium 7.9 L Magnesium B-Natriuretic Peptide 395 H 08/14/21 08/14/21 08/14/21 07:14 11:01 15:39 WBC RBC Hgb Hct MCV MCH MCHC RDW Plt Count MPV Absolute Nucleated RBC Nucleated RBC % (auto) PT INR Sodium Potassium Chloride Carbon Dioxide Anion Gap BUN Creatinine Estim Creat Clear Calc Estimated GFR POC Glucose 136 H 178 H 167 H Random Glucose Calcium Magnesium B-Natriuretic Peptide Microbiology Microbiology Results: Microbiology 08/12/21 Unknown Urine Catheterized - Mcknight Catheter Urine Culture - Final Escherichia coli 07/17/21 15:05 Blood - Venous Blood Culture - Final No growth after 5 days. 07/17/21 14:48 Blood - Venous Blood Culture - Final No growth after 5 days. Procedures Date of Service Date of Service: 08/14/21 Assessment & Plan Assessment and plan (1) Hematuria: Status: Acute Plan 61yo M with HTN, HFpEF with cardioMEMS device in place, HLD, CAD, DM2, DARLENE, severe pHTN, AF on warfarin, CKD3-4, hx CVA, polycythemic vera, chronic hypoxic respiratory failure on 2L recent admission to [facility] for CHF exacerbation presenting with nausea/vomiting, dizziness NIRAJ on CKD stage 3: Creatinine relatively stable. Noted underlying CKD. BUN remains elevated. Avoid nephrotoxic medications acute on chronic HFpEF Continue Torsemide home dose. follow BMP and BNP continue iron and LIDYA for anemia. hematuria- urology following. 2/2 traumatic mcknight. No indication for renal biopsy. Time Spent With Patient Time: Total time spent is greater than 50% in coordination of care (as documented) at patient's floor/unit and/or counseling patient: Time with patient: 15 - 24 minutes Progress Note: Quality Stroke Does the patient have a stroke diagnosis?: No
[2021-08-14 19:22] VITALS: BP 108/62; PULSE 64; RESP 18; TEMP 36.8; O2SAT 95
[2021-08-14] MEDS: Amitriptyline HCl 25 MG TABLET 75 MG PO (20:00)
[2021-08-14 20:09] LABS: Glucose, Whole Blood 143 mg/dL (60-115)
[2021-08-14 22:28] VITALS: PULSE 68; RESP 18; O2SAT 95
[2021-08-15] VITALS (12 sets, daily range): BP systolic 93–123; BP diastolic 46–69; PULSE 59–72; RESP 16–18; TEMP 36.1–36.9; O2SAT 94–97
[2021-08-15] MEDS: Omeprazole 40 MG CAPSULE.DR PO ×2 (05:11→16:25)
[2021-08-15 06:43] LABS: INTERNATIONAL NORM RATIO 1.5 (0.9-1.1); Prothrombin Time 17.4 SEC (9.9-13.0)
[2021-08-15 06:45] LABS: Anion Gap 12 (12-20); Blood Urea Nitrogen 109 mg/dL (9-16); Calcium 7.8 mg/dL (8.4-10.2); Carbon Dioxide 33 mmol/L (22-29); Chloride 92 mmol/L (96-108); Creatinine Clr Calc Pharmacy 39.2; Estimated Glomerular Filt Rate 24; Glucose Random 160 mg/dL (60-115); Potassium 3.5 mmol/L (3.3-5.1); Sodium 133 mmol/L (135-145)
[2021-08-15 07:01] LABS: Hematocrit 24.4 % (42.0-52.0); Hemoglobin 7.8 g/dl (14.0-18.0); Mean Corpuscular Hemoglobin 28.9 pg (27.0-33.0); Mean Corpuscular Volume 90.4 fL (80.0-98.0); Mean Platelet Volume 9.3 fL (9.4-12.4); Platelet Count 315 X10*3/uL (160-400); Red Cell Distribution Width 17.3 % (11.0-16.0)
[2021-08-15 07:36] LABS: Glucose, Whole Blood 150 mg/dL (60-115)
[2021-08-15] MEDS: Insulin Lispro 100 UNIT/ML 3 ML VIAL SUBCUT ×4 (07:43→22:28)
[2021-08-15] MEDS: Ascorbic Acid 500 MG TABLET PO (07:44)
[2021-08-15] MEDS: Ferrous Sulfate 324 MG TABLET.DR PO (07:44)
[2021-08-15] MEDS: Potassium Chloride ER 20 MEQ TAB.ER.PRT PO ×2 (07:44→22:29)
[2021-08-15] MEDS: 0.9 % Sodium Chloride Flush 3 ML SYRINGE IVFLUSH ×3 (07:45→22:33)
[2021-08-15] MEDS: Ammonium Lactate 12 % Cream 140 GM TUBE 1 APPL TOPICAL (07:47)
--- NOTE | 2021-08-15 09:38 | P.PNNP_ITS ---
Subjective Subjective Date of Service: 08/16/21 Principal diagnosis: NIRAJ on CKD, chronic diastolic HF Interval history: Events noted Physical Exam Vital Signs: Vital Signs: Last Vital Signs Temp 97.8 F 08/15/21 07:21 Pulse 61 08/15/21 07:21 Resp 18 08/15/21 07:21 BP 93/46 L 08/15/21 07:21 Pulse Ox 96 08/15/21 07:21 Oxygen Flow Rate 3 07/22/21 04:00 BMI result Body Mass Index 39.2 Const: General: no acute distress Neck: Neck: Yes supple Resp: Auscultation: clear to auscultation bilaterally GI: Palpation (GI): Soft to palpation Auscultation: normal bowel sounds Skin: General skin exam: no rashes or lesions noted Neuro: Motor exam (neuro): No Asterixis during motor activity present Objective Data Labs CBC & Chem 7: 08/16/21 05:27 08/16/21 05:27 Labs: Laboratory Results - last 24 hr 08/14/21 08/14/21 08/14/21 11:01 15:39 19:26 WBC RBC Hgb Hct MCV MCH MCHC RDW Plt Count MPV Absolute Nucleated RBC Nucleated RBC % (auto) PT INR Sodium Potassium Chloride Carbon Dioxide Anion Gap BUN Creatinine Estim Creat Clear Calc Estimated GFR POC Glucose 178 H 167 H 143 H Random Glucose Calcium Crossmatch 08/15/21 08/15/21 08/15/21 06:05 06:05 06:05 WBC 10.0 RBC 2.70 L Hgb 7.8 L Hct 24.4 L MCV 90.4 MCH 28.9 MCHC 32.0 RDW 17.3 H Plt Count 315 MPV 9.3 L Absolute Nucleated RBC 0.000 Nucleated RBC % (auto) 0.0 PT 17.4 H INR 1.5 H Sodium 133 L Potassium 3.5 Chloride 92 L Carbon Dioxide 33 H Anion Gap 12 BUN 109 H Creatinine 2.76 H Estim Creat Clear Calc 39.2 Estimated GFR 24 POC Glucose Random Glucose 160 H Calcium 7.8 L Crossmatch 08/15/21 08/15/21 07:25 08:28 WBC RBC Hgb Hct MCV MCH MCHC RDW Plt Count MPV Absolute Nucleated RBC Nucleated RBC % (auto) PT INR Sodium Potassium Chloride Carbon Dioxide Anion Gap BUN Creatinine Estim Creat Clear Calc Estimated GFR POC Glucose 150 H Random Glucose Calcium Crossmatch See Detail Microbiology Microbiology Results: Microbiology 08/12/21 Unknown Urine Catheterized - Mcknight Catheter Urine Culture - Final Escherichia coli 07/17/21 15:05 Blood - Venous Blood Culture - Final No growth after 5 days. 07/17/21 14:48 Blood - Venous Blood Culture - Final No growth after 5 days. Procedures Date of Service Date of Service: 08/15/21 Assessment & Plan Assessment and plan (1) NIRAJ (acute kidney injury): Status: Acute Plan 61yo M with HTN, HFpEF with cardioMEMS device in place, HLD, CAD, DM2, DARLENE, severe pHTN, AF on warfarin, CKD3-4, hx CVA, polycythemic vera, chronic hypoxic respiratory failure on 2L recent admission to [facility] for CHF exacerbation presenting with nausea/vomiting, dizziness NIRAJ on CKD stage 3: Creatinine relatively stable. Noted underlying CKD. BUN remains elevated. Avoid nephrotoxic medications acute on chronic HFpEF Continue Torsemide home dose. follow BMP and BNP continue iron and LIDYA for anemia. hematuria- urology following. 2/2 traumatic mcknight. No indication for renal biopsy. Shall follow with team Time Spent With Patient Time: Total time spent is greater than 50% in coordination of care (as documented) at patient's floor/unit and/or counseling patient: Time with patient: 15 - 24 minutes Progress Note: Quality Stroke Does the patient have a stroke diagnosis?: No
[2021-08-15] MEDS: Metoprolol Succinate ER 25 MG TAB.ER.24H PO (10:06)
[2021-08-15] MEDS: hydrALAZINE HCl 25 MG TABLET PO ×3 (10:06→22:28)
[2021-08-15] MEDS: Atorvastatin Calcium 80 MG TABLET PO (10:06)
[2021-08-15] MEDS: Isosorbide Mononitrate 60 MG TAB.ER.24H PO (10:07)
[2021-08-15] MEDS: Torsemide 20 MG TABLET 100 MG PO ×2 (10:07→22:27)
[2021-08-15] MEDS: HYDROmorphone HCl 2 MG TABLET 0.5 MG PO (10:08)
[2021-08-15] MEDS: Tranexamic Acid 1,000 MG in 0.9 % Sodium Chloride 50 ML 360 MG IV (10:14)
--- NOTE | 2021-08-15 10:18 | HO.PM.IMPN ---
Subjective Subjective Date of Service: 08/15/21 Interval History: the patient was seen and evaluated this morning Hematuria partially improved, not leaking around the Mckinght catheter INR dropped to 1.5, patient aware of the risk associated with that but he agrees in order to stop the bleeding Hb dropped to 7.8 No reported other overnight events. Systemic review: No fever, chills but has generalized weakness No chest pain, palpitation No shortness of breath or coughing No abdominal pain, nausea or vomiting Hematuria No any rash or wounds Physical Exam Vital Signs: Vital Signs: Last Vital Signs Temp 97.8 F 08/15/21 07:21 Pulse 71 08/15/21 09:59 Resp 18 08/15/21 07:21 BP 107/63 08/15/21 09:59 Pulse Ox 96 08/15/21 07:21 Oxygen Flow Rate 3 07/22/21 04:00 BMI result Body Mass Index 39.2 Const: Other: Gen:? Awake, alert in no acute distress Neck: supple, no increased JVD Lungs: Coarse breath sound, no wheeze, no crackles Heart: irregularly irregular, no murmurs Abd: soft, non-tender, non-distended, obese :? Resolved scrotal swelling , dry blood around Mcknight catheter but less bleeding Ext: venous stasis hyperpigmentation to shins, decreased edema in both thighs and back Skin: warm/well-perfused Neuro: alert and oriented x3, no focal findings Psych: appropriate affect Objective Data Active Medications Acetaminophen (Acetaminophen 325 Mg Tablet) 650 mg PO Q6H PRN PRN Reason: Pain, Mild (Pain Scale 1-3) Last Admin: 08/13/21 10:54 Dose: 650 mg Documented by: LAZARUS Al Hydroxide/Mg Hydroxide (Magnesium Hydrox/Alum Hydrox 30 Ml Oral.Susp) 30 ml PO Q4H PRN PRN Reason: heartbirun Last Admin: 07/19/21 00:23 Dose: 30 ml Documented by: GIL Amitriptyline HCl (Amitriptyline Hcl 50 Mg Tablet) 50 mg PO DAILY [facility] Last Admin: 08/11/21 08:08 Dose: 50 mg Documented by: SHARAD Amitriptyline HCl (Amitriptyline Hcl 25 Mg Tablet) 75 mg PO BEDTIME [facility] Last Admin: 08/14/21 20:00 Dose: 75 mg Documented by: KIRTI Ascorbic Acid (Ascorbic Acid 500 Mg Tablet) 500 mg PO DAILY [facility] Last Admin: 08/15/21 07:44 Dose: 500 mg Documented by: LAZARUS Atorvastatin Calcium (Atorvastatin Calcium 80 Mg Tablet) 80 mg PO DAILY [facility] Last Admin: 08/15/21 10:06 Dose: 80 mg Documented by: LAZARUS Bismuth Subsalicylate (Bismuth Subsalicylate Liquid 524 Mg/30 Ml Oral.Susp) 524 mg PO QID PRN PRN Reason: Indigestion Last Admin: 07/18/21 15:06 Dose: 524 mg Documented by: LORE Dextrose (Dextrose 50 % 25 Gm/50 Ml Syringe) 25 gm IVPUSH Q15M PRN; Protocol PRN Reason: per Hypoglycemia Standing Ord. Docusate Sodium (Docusate Sodium 100 Mg Capsule) 100 mg PO DAILY PRN PRN Reason: Constipation Ferrous Sulfate (Ferrous Sulfate 324 Mg Tablet.Dr) 324 mg PO DAILY [facility] Last Admin: 08/15/21 07:44 Dose: 324 mg Documented by: LAZARUS Glucose (Glucose Gel 15 Gm Gel..Gram.) 15 gm PO Q15M PRN; Protocol PRN Reason: per Hypoglycemia Standing Ord. Hydralazine HCl (Hydralazine Hcl 25 Mg Tablet) 25 mg PO TID [facility]; Protocol Last Admin: 08/15/21 10:06 Dose: 25 mg Documented by: LAZARUS Hydromorphone HCl (Hydromorphone Hcl 2 Mg Tablet) 0.5 mg PO Q4H PRN PRN Reason: moderate pain Last Admin: 08/15/21 10:08 Dose: 0.5 mg Documented by: LAZARUS Tranexamic Acid 1,000 mg/ (Sodium Chloride) 60 mls @ 360 mls/hr IV DAILY [facility] Stop: 08/18/21 09:09 Last Admin: 08/15/21 10:14 Dose: 360 mls/hr Documented by: LAZARUS Insulin Human Lispro (Insulin Lispro 100 Unit/Ml 3 Ml Vial) 0 unit SUBCUT QIDACHS [facility]; Protocol Last Admin: 08/15/21 07:43 Dose: 2 unit Documented by: LAZARUS Isosorbide Mononitrate (Isosorbide Mononitrate 60 Mg Tab.Er.24h) 60 mg PO DAILY [facility]; Protocol Last Admin: 08/15/21 10:07 Dose: 60 mg Documented by: LAZARUS Lactic Acid (Ammonium Lactate 12 % Cream 140 Gm Tube) 1 appl TOPICAL DAILY [facility]; Protocol Last Admin: 08/15/21 07:47 Dose: 1 appl Documented by: LAZARUS Metolazone (Metolazone 5 Mg Tablet) 5 mg PO DAILY [facility] Last Admin: 08/11/21 08:08 Dose: 5 mg Documented by: SHARAD Metoprolol Succinate (Metoprolol Succinate Er 25 Mg Tab.Er.24h) 25 mg PO DAILY [facility]; Protocol Last Admin: 08/15/21 10:06 Dose: 25 mg Documented by: LAZARUS Omeprazole (Omeprazole 40 Mg Capsule.Dr) 40 mg PO BID@0630,1630 [facility] Last Admin: 08/15/21 05:11 Dose: 40 mg Documented by: KIRTI Ondansetron HCl (Ondansetron Hcl 4 Mg/2 Ml Vial) 4 mg IVPUSH Q8H PRN PRN Reason: Nausea and Vomiting Last Admin: 07/19/21 06:16 Dose: 4 mg Documented by: GIL Pharmacy Consult (Consult Rx Perform Med Rec) 1 each MISCELLANE ONCE PRN PRN Reason: Consult order Potassium Chloride (Potassium Chloride Er 20 Meq Tab.Er.Prt) 40 meq PO DAILY@1230 [facility] Last Admin: 08/14/21 11:46 Dose: 40 meq Documented by: GALEN Potassium Chloride (Potassium Chloride Er 20 Meq Tab.Er.Prt) 20 meq PO BID [facility] Last Admin: 08/15/21 07:44 Dose: 20 meq Documented by: LAZARUS Sodium Chloride (0.9 % Sodium Chloride Flush 3 Ml Syringe) 3 ml IVFLUSH QSHIFT [facility] Last Admin: 08/15/21 07:45 Dose: 3 ml Documented by: LAZARUS Torsemide (Torsemide 20 Mg Tablet) 100 mg PO BID [facility]; Protocol Last Admin: 08/15/21 10:07 Dose: 100 mg Documented by: LAZARUS Warfarin Sodium (Warfarin Sodium 2 Mg Tablet) 2 mg PO DAILY@1800 [facility] Last Admin: 08/14/21 17:08 Dose: 2 mg Documented by: GALEN Labs CBC & Chem 7: 08/15/21 06:05 08/15/21 06:05 Labs: Laboratory Results - last 24 hr 08/14/21 08/14/21 08/14/21 11:01 15:39 19:26 MCV MCH MCHC RDW Plt Count MPV Absolute Nucleated RBC Nucleated RBC % (auto) PT INR Anion Gap Estim Creat Clear Calc Estimated GFR POC Glucose 178 H 167 H 143 H Random Glucose Calcium Blood Type Antibody Screen Crossmatch 08/15/21 08/15/21 08/15/21 06:05 06:05 06:05 MCV 90.4 MCH 28.9 MCHC 32.0 RDW 17.3 H Plt Count 315 MPV 9.3 L Absolute Nucleated RBC 0.000 Nucleated RBC % (auto) 0.0 PT 17.4 H INR 1.5 H Anion Gap 12 Estim Creat Clear Calc 39.2 Estimated GFR 24 POC Glucose Random Glucose 160 H Calcium 7.8 L Blood Type Antibody Screen Crossmatch 08/15/21 08/15/21 07:25 08:28 MCV MCH MCHC RDW Plt Count MPV Absolute Nucleated RBC Nucleated RBC % (auto) PT INR Anion Gap Estim Creat Clear Calc Estimated GFR POC Glucose 150 H Random Glucose Calcium Blood Type O Positive Antibody Screen NEGATIVE Crossmatch See Detail Microbiology Microbiology Results: Microbiology 08/12/21 Unknown Urine Culture - Final Urine Catheterized - Mcknight Catheter Escherichia coli Assessment and Plan (1) NIRAJ (acute kidney injury): Status: Acute (2) Gross hematuria: Status: Acute (3) Urinary retention with incomplete bladder emptying: Status: Acute (4) Acute blood loss anemia (ABLA): Status: Acute Plan 61yo M with HTN, HFpEF with cardioMEMS device in place, HLD, CAD, DM2, DARLENE, severe pHTN, AF on warfarin, CKD3-4, hx CVA, polycythemic vera, chronic hypoxic respiratory failure on 2L recent admission to [facility] for CHF exacerbation presenting with nausea/vomiting, dizziness Acute blood loss anemia 2/2 hematuria Hemoglobin dropped to 7.8, to give a 2nd unit of blood Hematuria was likely due to traumatic Mcknight placement while on anticoagulation failed voiding trial 2/, mcknight reinserted IV iron day 3 Monitor H&H Urology following, try to bring BUN down to improve platelet function, continue capping with intermittent drainage Started on TXA for 1 week day 4 Hematology evaluation appreciated, give vitamin K and hold warfarin until bleeding clears up I explained to the patient the risk of having another Stork while holding the warfarin but he agreed to the plan now Physical deconditioning Secondary to prolonged hospital stay and activity Refuses PT sessions on occasions continue physical therapy with plan to placement Niraj I on CKD stage 3 Creatinine of 2.7, urea 100s , improving BUN Avoid nephrotoxic medications Nephrology input appreciated acute on chronic HFpEF diuresed almost 25L druing this hospital stay TTE 07/07/20 LVEF 50%, no RWMA, mild , mod pulm HTN Hold metolazone for now Continue Torsemide home dose follow BMP and BNP Scrotal swelling Resolved permanent AF continue metoprolol; d/montez digoxin due to CKD, INR dropped 1.5, hold warfarin per hematology rec. CKD4 stable acute pontine CVA Improved conitnue statin coumadin hypoK continue potassium 40meq at lunch, 20meq am and pm for 80meq total monitor nausea/vomiting with 1 episode blood-streaked vomitus Brinda-Reyes tear.? has not recurred since admission s/p IV Protonix, now on oral PPI, repeat hematocrit is stable chronic hypoxic respiratory failure on 2L at home DM2 with hypyerglycemia, A1c 8.6 blood sugar stable, on correction-dose lispro.? on U-500 + Trulicity at home.? Continue diabetic diet and insulin sliding scale. CAD episode of chest pain resolved, troponins flat, continue statin, metoprolol, Imdur HTN stable blood pressure on metoprolol, low-dose hydralazine, Imdur, (amlodipine discontinued) morbid obesity outpt bariatrics evaluation can be considered DARLENE continue CPAP at bedtime and during naps VTE ppx on warfari dispo plan home with VNA Quality Stroke Does the patient have a stroke diagnosis?: No VTE Prior VTE?: No VTE Risk Level:: Medical - moderate - high VTE Device Contraindication: N/A - Device Ordered VTE Drug Contraindication: Treatment Not Indicated
[2021-08-15 10:49] LABS: Glucose, Whole Blood 160 mg/dL (60-115)
[2021-08-15] MEDS: Phytonadione (Vit K1) Oral 10 MG/ML AMPUL 2.5 MG PO (11:03)
--- NOTE | 2021-08-15 11:15 | MHC.CLN ---
F/U LABS 08/15 WITH VIU=328; Cr=2.76. DIET=DIABETIC 2000 KCAL, 2 G SODIUM. STAGE II WOUND TO BILATERAL BUTTOCKS. NO SUPPLEMENT AT THIS TIME DUE TO RENAL FUNCTION. INTAKE AT MEALS CONTINUES VARIABLE, 0-100%. CONTINUE TO FOLLOW LABS, INTAKE, AND WOUND.
[2021-08-15] MEDS: Potassium Chloride ER 20 MEQ TAB.ER.PRT 40 MEQ PO (11:39)
[2021-08-15 16:18] LABS: Glucose, Whole Blood 158 mg/dL (60-115)
[2021-08-15 20:03] LABS: Glucose, Whole Blood 133 mg/dL (60-115)
[2021-08-15] MEDS: Amitriptyline HCl 25 MG TABLET 75 MG PO (22:27)
[2021-08-16] VITALS (7 sets, daily range): BP systolic 101–123; BP diastolic 54–70; PULSE 60–76; RESP 16–19; TEMP 36–36.8; O2SAT 93–98
[2021-08-16] MEDS: Magnesium Hydrox/Alum Hydrox 30 ML ORAL.SUSP PO (01:54)
--- NOTE | 2021-08-16 02:42 | PC.NURSE ---
at 0055 telemetry monitoring noted pts heart rate up to 150-160 and back down he is having frequent pvcs not new pt was also feeling nauseated. and at 2 am he called for something for upset stomach-maalax was given, and symptoms improved.
[2021-08-16] MEDS: Omeprazole 40 MG CAPSULE.DR PO ×2 (05:40→15:38)
[2021-08-16] MEDS: HYDROmorphone HCl 2 MG TABLET 0.5 MG PO (05:41)
[2021-08-16 05:51] LABS: Hemoglobin 9.2 g/dl (14.0-18.0); Mean Corpuscular HGB Conc 32.9 g/dl (31.0-36.0); Mean Corpuscular Hemoglobin 29.6 pg (27.0-33.0); Mean Platelet Volume 8.9 fL (9.4-12.4); Platelet Count 322 X10*3/uL (160-400); Red Blood Count 3.11 X10*6/uL (4.60-5.80); Red Cell Distribution Width 17.2 % (11.0-16.0); White Blood Count 11.7 X10*3/uL (4.8-10.8)
[2021-08-16 05:55] LABS: Glucose, Whole Blood 129 mg/dL (60-115)
[2021-08-16 06:17] LABS: Anion Gap 15 (12-20); Blood Urea Nitrogen 107 mg/dL (9-16); Calcium 8.3 mg/dL (8.4-10.2); Carbon Dioxide 32 mmol/L (22-29); Chloride 92 mmol/L (96-108); Creatinine Clr Calc Pharmacy 39.3; Estimated Glomerular Filt Rate 24; Glucose Random 135 mg/dL (60-115); Potassium 3.6 mmol/L (3.3-5.1); Sodium 135 mmol/L (135-145)
[2021-08-16 06:28] LABS: INTERNATIONAL NORM RATIO 1.5 (0.9-1.1); Prothrombin Time 16.6 SEC (9.9-13.0)
[2021-08-16 08:10] LABS: Glucose, Whole Blood 144 mg/dL (60-115)
[2021-08-16] MEDS: Insulin Lispro 100 UNIT/ML 3 ML VIAL SUBCUT ×3 (08:25→20:42)
[2021-08-16] MEDS: Potassium Chloride ER 20 MEQ TAB.ER.PRT PO ×2 (08:25→20:41)
[2021-08-16] MEDS: Atorvastatin Calcium 80 MG TABLET PO (08:26)
[2021-08-16] MEDS: Isosorbide Mononitrate 60 MG TAB.ER.24H PO (08:26)
[2021-08-16] MEDS: hydrALAZINE HCl 25 MG TABLET PO ×3 (08:26→20:42)
[2021-08-16] MEDS: Metoprolol Succinate ER 25 MG TAB.ER.24H PO (08:26)
[2021-08-16] MEDS: Ascorbic Acid 500 MG TABLET PO (08:26)
[2021-08-16] MEDS: Ferrous Sulfate 324 MG TABLET.DR PO (08:26)
[2021-08-16] MEDS: 0.9 % Sodium Chloride Flush 3 ML SYRINGE IVFLUSH ×3 (08:27→20:42)
[2021-08-16] MEDS: Torsemide 20 MG TABLET 100 MG PO ×2 (08:27→20:41)
[2021-08-16] MEDS: Ammonium Lactate 12 % Cream 140 GM TUBE 1 APPL TOPICAL (08:27)
--- NOTE | 2021-08-16 10:15 | PM.PNNEP ---
Subjective Subjective Date of Service: 08/16/21 Principal diagnosis: NIRAJ on CKD, chronic diastolic HF Interval history: the patient was seen and evaluated this morning Hematuria partially improved, not leaking around the Mcknight catheter INR dropped to 1.5, patient aware of the risk associated with that but he agrees in order to stop the bleeding Hb dropped to 7.8 No reported other overnight events. Systemic review: No fever, chills but has generalized weakness No chest pain, palpitation No shortness of breath or coughing No abdominal pain, nausea or vomiting Hematuria No any rash or wounds Physical Exam Vital Signs: Vital Signs: Last Vital Signs Temp 97.5 F 08/16/21 07:31 Pulse 74 08/16/21 07:31 Resp 18 08/16/21 07:31 BP 123/62 08/16/21 07:31 Pulse Ox 93 08/16/21 07:31 Oxygen Flow Rate 3 07/22/21 04:00 BMI result Body Mass Index 39.2 Const: General: no acute distress Neck: Neck: Yes supple Resp: Auscultation: clear to auscultation bilaterally GI: Palpation (GI): Soft to palpation Auscultation: normal bowel sounds Skin: General skin exam: no rashes or lesions noted Neuro: Motor exam (neuro): No Asterixis during motor activity present Objective Data Labs CBC & Chem 7: 08/16/21 05:27 08/16/21 05:27 Labs: Laboratory Results - last 24 hr 08/15/21 08/15/21 08/15/21 08:28 10:43 15:50 WBC RBC Hgb Hct MCV MCH MCHC RDW Plt Count MPV Absolute Nucleated RBC Nucleated RBC % (auto) PT INR Sodium Potassium Chloride Carbon Dioxide Anion Gap BUN Creatinine Estim Creat Clear Calc Estimated GFR POC Glucose 160 H 158 H Random Glucose Calcium Blood Type O Positive Antibody Screen NEGATIVE Crossmatch See Detail 08/15/21 08/16/21 08/16/21 19:45 05:27 05:27 WBC 11.7 H RBC 3.11 L Hgb 9.2 L Hct 28.0 L MCV 90.0 MCH 29.6 MCHC 32.9 RDW 17.2 H Plt Count 322 MPV 8.9 L Absolute Nucleated RBC 0.000 Nucleated RBC % (auto) 0.0 PT 16.6 H INR 1.5 H Sodium Potassium Chloride Carbon Dioxide Anion Gap BUN Creatinine Estim Creat Clear Calc Estimated GFR POC Glucose 133 H Random Glucose Calcium Blood Type Antibody Screen Crossmatch 08/16/21 08/16/21 08/16/21 05:27 05:49 07:34 WBC RBC Hgb Hct MCV MCH MCHC RDW Plt Count MPV Absolute Nucleated RBC Nucleated RBC % (auto) PT INR Sodium 135 Potassium 3.6 Chloride 92 L Carbon Dioxide 32 H Anion Gap 15 BUN 107 H Creatinine 2.75 H Estim Creat Clear Calc 39.3 Estimated GFR 24 POC Glucose 129 H 144 H Random Glucose 135 H Calcium 8.3 L D Blood Type Antibody Screen Crossmatch Microbiology Microbiology Results: Microbiology 08/12/21 Unknown Urine Catheterized - Mcknight Catheter Urine Culture - Final Escherichia coli 07/17/21 15:05 Blood - Venous Blood Culture - Final No growth after 5 days. 07/17/21 14:48 Blood - Venous Blood Culture - Final No growth after 5 days. Procedures Date of Service Date of Service: 08/16/21 Assessment & Plan Assessment and plan (1) NIRAJ (acute kidney injury): Status: Acute Plan 61yo M with HTN, HFpEF with cardioMEMS device in place, HLD, CAD, DM2, DARLENE, severe pHTN, AF on warfarin, CKD3-4, hx CVA, polycythemic vera, chronic hypoxic respiratory failure on 2L recent admission to [facility] for CHF exacerbation presenting with nausea/vomiting, dizziness NIRAJ on CKD stage 3: Creatinine relatively stable. Noted underlying CKD. BUN remains elevated. Avoid nephrotoxic medications acute on chronic HFpEF Continue Torsemide home dose. follow BMP and BNP continue iron and LIDYA for anemia. hematuria- urology following. 2/2 traumatic mcknight. No indication for renal biopsy. Shall follow with team Time Spent With Patient Time: Total time spent is greater than 50% in coordination of care (as documented) at patient's floor/unit and/or counseling patient: Progress Note: Quality Stroke Does the patient have a stroke diagnosis?: No
[2021-08-16] MEDS: Tranexamic Acid 1,000 MG in 0.9 % Sodium Chloride 50 ML 360 MG IV (10:17)
--- NOTE | 2021-08-16 10:51 | P.PNIM_ITS ---
Subjective Subjective Date of Service: 08/16/21 Interval History: the patient was seen and evaluated this morning Hematuria partially improved, not leaking around the Mcknight catheter INR dropped to 1.5 Hb improved above 9 No reported other overnight events. Systemic review: No fever, chills but has generalized weakness No chest pain, palpitation No shortness of breath or coughing No abdominal pain, nausea or vomiting Hematuria upon passing urine No any rash or wounds Physical Exam Vital Signs: Vital Signs: Last Vital Signs Temp 97.5 F 08/16/21 07:31 Pulse 74 08/16/21 07:31 Resp 18 08/16/21 07:31 BP 123/62 08/16/21 07:31 Pulse Ox 93 08/16/21 07:31 Oxygen Flow Rate 3 07/22/21 04:00 BMI result Body Mass Index 39.2 Const: Other: Gen:? Awake, alert in no acute distress Neck: supple, no increased JVD Lungs: Coarse breath sound, no wheeze, no crackles Heart: irregularly irregular, no murmurs Abd: soft, non-tender, non-distended, obese :? Resolved scrotal swelling , dry blood around Mcknight catheter but less bleeding Ext: venous stasis hyperpigmentation to shins, decreased edema in both thighs and back Skin: warm/well-perfused Neuro: alert and oriented x3, no focal findings Psych: appropriate affect Objective Data Active Medications Acetaminophen (Acetaminophen 325 Mg Tablet) 650 mg PO Q6H PRN PRN Reason: Pain, Mild (Pain Scale 1-3) Last Admin: 08/13/21 10:54 Dose: 650 mg Documented by: LAZARUS Al Hydroxide/Mg Hydroxide (Magnesium Hydrox/Alum Hydrox 30 Ml Oral.Susp) 30 ml PO Q4H PRN PRN Reason: heartbirun Last Admin: 08/16/21 01:54 Dose: 30 ml Documented by: KIRTI Amitriptyline HCl (Amitriptyline Hcl 50 Mg Tablet) 50 mg PO DAILY [facility], [facility] Last Admin: 08/11/21 08:08 Dose: 50 mg Documented by: SHARAD Amitriptyline HCl (Amitriptyline Hcl 25 Mg Tablet) 75 mg PO BEDTIME [facility], [facility] Last Admin: 08/15/21 22:27 Dose: 75 mg Documented by: KIRTI Ascorbic Acid (Ascorbic Acid 500 Mg Tablet) 500 mg PO DAILY [facility], [facility] Last Admin: 08/16/21 08:26 Dose: 500 mg Documented by: JAMIR Atorvastatin Calcium (Atorvastatin Calcium 80 Mg Tablet) 80 mg PO DAILY [facility], [facility] Last Admin: 08/16/21 08:26 Dose: 80 mg Documented by: JAMIR Bismuth Subsalicylate (Bismuth Subsalicylate Liquid 524 Mg/30 Ml Oral.Susp) 524 mg PO QID PRN PRN Reason: Indigestion Last Admin: 07/18/21 15:06 Dose: 524 mg Documented by: LORE Dextrose (Dextrose 50 % 25 Gm/50 Ml Syringe) 25 gm IVPUSH Q15M PRN; Protocol PRN Reason: per Hypoglycemia Standing Ord. Docusate Sodium (Docusate Sodium 100 Mg Capsule) 100 mg PO DAILY PRN PRN Reason: Constipation Ferrous Sulfate (Ferrous Sulfate 324 Mg Tablet.Dr) 324 mg PO DAILY [facility], [facility] Last Admin: 08/16/21 08:26 Dose: 324 mg Documented by: JAMIR Glucose (Glucose Gel 15 Gm Gel..Gram.) 15 gm PO Q15M PRN; Protocol PRN Reason: per Hypoglycemia Standing Ord. Hydralazine HCl (Hydralazine Hcl 25 Mg Tablet) 25 mg PO TID [facility], [facility]; Protocol Last Admin: 08/16/21 08:26 Dose: 25 mg Documented by: JAMIR Hydromorphone HCl (Hydromorphone Hcl 2 Mg Tablet) 0.5 mg PO Q4H PRN PRN Reason: moderate pain Last Admin: 08/16/21 05:41 Dose: 0.5 mg Documented by: KIRTI Tranexamic Acid 1,000 mg/ (Sodium Chloride) 60 mls @ 360 mls/hr IV DAILY [facility] Stop: 08/18/21 09:09 Last Admin: 08/16/21 10:17 Dose: 360 mls/hr Documented by: JAMIR Insulin Human Lispro (Insulin Lispro 100 Unit/Ml 3 Ml Vial) 0 unit SUBCUT QIDACHS [facility], [facility]; Protocol Last Admin: 08/16/21 08:25 Dose: 2 unit Documented by: JAMIR Isosorbide Mononitrate (Isosorbide Mononitrate 60 Mg Tab.Er.24h) 60 mg PO DAILY [facility], [facility]; Protocol Last Admin: 08/16/21 08:26 Dose: 60 mg Documented by: JAMIR Lactic Acid (Ammonium Lactate 12 % Cream 140 Gm Tube) 1 appl TOPICAL DAILY [facility], [facility]; Protocol Last Admin: 08/16/21 08:27 Dose: 1 appl Documented by: JAMIR Metolazone (Metolazone 5 Mg Tablet) 5 mg PO DAILY [facility] Last Admin: 08/11/21 08:08 Dose: 5 mg Documented by: SHARAD Metoprolol Succinate (Metoprolol Succinate Er 25 Mg Tab.Er.24h) 25 mg PO DAILY [facility], [facility]; Protocol Last Admin: 08/16/21 08:26 Dose: 25 mg Documented by: JAMIR Omeprazole (Omeprazole 40 Mg Capsule.Dr) 40 mg PO BID@0630,1630 [facility] Last Admin: 08/16/21 05:40 Dose: 40 mg Documented by: KIRTI Ondansetron HCl (Ondansetron Hcl 4 Mg/2 Ml Vial) 4 mg IVPUSH Q8H PRN PRN Reason: Nausea and Vomiting Last Admin: 07/19/21 06:16 Dose: 4 mg Documented by: GIL Pharmacy Consult (Consult Rx Perform Med Rec) 1 each MISCELLANE ONCE PRN PRN Reason: Consult order Potassium Chloride (Potassium Chloride Er 20 Meq Tab.Er.Prt) 40 meq PO DAILY@1230 [facility] Last Admin: 08/15/21 11:39 Dose: 40 meq Documented by: LAZARUS Potassium Chloride (Potassium Chloride Er 20 Meq Tab.Er.Prt) 20 meq PO BID [facility] Last Admin: 08/16/21 08:25 Dose: 20 meq Documented by: JAMIR Sodium Chloride (0.9 % Sodium Chloride Flush 3 Ml Syringe) 3 ml IVFLUSH QSHIFT [facility] Last Admin: 08/16/21 08:27 Dose: 3 ml Documented by: JAMIR Torsemide (Torsemide 20 Mg Tablet) 100 mg PO BID [facility], [facility]; Protocol Last Admin: 08/16/21 08:27 Dose: 100 mg Documented by: AJMIR Warfarin Sodium (Warfarin Sodium 2 Mg Tablet) 2 mg PO DAILY@1800 [facility] Last Admin: 08/14/21 17:08 Dose: 2 mg Documented by: GALEN Labs CBC & Chem 7: 08/16/21 05:27 08/16/21 05:27 Labs: Laboratory Results - last 24 hr 08/15/21 08/15/21 08/15/21 08:28 15:50 19:45 MCV MCH MCHC RDW Plt Count MPV Absolute Nucleated RBC Nucleated RBC % (auto) PT INR Anion Gap Estim Creat Clear Calc Estimated GFR POC Glucose 158 H 133 H Random Glucose Calcium Blood Type O Positive Antibody Screen NEGATIVE Crossmatch See Detail 08/16/21 08/16/21 08/16/21 05:27 05:27 05:27 MCV 90.0 MCH 29.6 MCHC 32.9 RDW 17.2 H Plt Count 322 MPV 8.9 L Absolute Nucleated RBC 0.000 Nucleated RBC % (auto) 0.0 PT 16.6 H INR 1.5 H Anion Gap 15 Estim Creat Clear Calc 39.3 Estimated GFR 24 POC Glucose Random Glucose 135 H Calcium 8.3 L D Blood Type Antibody Screen Crossmatch 08/16/21 08/16/21 05:49 07:34 MCV MCH MCHC RDW Plt Count MPV Absolute Nucleated RBC Nucleated RBC % (auto) PT INR Anion Gap Estim Creat Clear Calc Estimated GFR POC Glucose 129 H 144 H Random Glucose Calcium Blood Type Antibody Screen Crossmatch Assessment and Plan (1) Hematuria: Status: Acute (2) Acute blood loss anemia (ABLA): Status: Acute Plan 61yo M with HTN, HFpEF with cardioMEMS device in place, HLD, CAD, DM2, DARLENE, severe pHTN, AF on warfarin, CKD3-4, hx CVA, polycythemic vera, chronic hypoxic respiratory failure on 2L recent admission to [facility] for CHF exacerbation presenting with nausea/vomiting, dizziness Acute blood loss anemia 2/2 hematuria Hemoglobin improved to 9.2 after a 2nd unit of blood Hematuria was likely due to traumatic Mcknight placement while on anticoagulation failed voiding trial 2/, mcknight reinserted IV iron day 3, finished Urology following, try to bring BUN down to improve platelet function, continue capping with intermittent drainage Held metolazone Started on TXA for 1 week day 5 Hematology evaluation appreciated, give vitamin K and hold warfarin until bleeding clears up I explained to the patient the risk of having another Stork while holding the warfarin but he agreed to the plan now Physical deconditioning Secondary to prolonged hospital stay and activity Refuses PT sessions on occasions continue physical therapy with plan to placement Monty I on CKD stage 3 Creatinine of 2.7, urea 100s , improving BUN Avoid nephrotoxic medications Nephrology input appreciated acute on chronic HFpEF diuresed almost 25L druing this hospital stay TTE 07/07/20 LVEF 50%, no RWMA, mild , mod pulm HTN Hold metolazone for now Continue Torsemide home dose follow BMP and BNP Scrotal swelling Resolved permanent AF continue metoprolol; d/montez digoxin due to CKD, INR dropped 1.5, hold warfarin per hematology rec. CKD4 stable acute pontine CVA Improved conitnue statin coumadin hypoK continue potassium 40meq at lunch, 20meq am and pm for 80meq total monitor nausea/vomiting with 1 episode blood-streaked vomitus Brinda-Reyes tear.? has not recurred since admission s/p IV Protonix, now on oral PPI, repeat hematocrit is stable chronic hypoxic respiratory failure on 2L at home DM2 with hypyerglycemia, A1c 8.6 blood sugar stable, on correction-dose lispro.? on U-500 + Trulicity at home.? Continue diabetic diet and insulin sliding scale. CAD episode of chest pain resolved, troponins flat, continue statin, metoprolol, Imd ur HTN stable blood pressure on metoprolol, low-dose hydralazine, Imdur, (amlodipine discontinued) morbid obesity outpt bariatrics evaluation can be considered DARLENE continue CPAP at bedtime and during naps VTE ppx on warfari dispo plan home with VNA Quality Stroke Does the patient have a stroke diagnosis?: No VTE Prior VTE?: No VTE Risk Level:: Medical - moderate - high VTE Device Contraindication: N/A - Device Ordered VTE Drug Contraindication: Treatment Not Indicated
[2021-08-16 11:21] LABS: Glucose, Whole Blood 166 mg/dL (60-115)
[2021-08-16 16:37] LABS: Glucose, Whole Blood 119 mg/dL (60-115)
[2021-08-16] MEDS: ondansetron HCL 4 MG/2 ML VIAL IVPUSH (16:49)
[2021-08-16 20:04] LABS: Glucose, Whole Blood 150 mg/dL (60-115)
[2021-08-16] MEDS: Amitriptyline HCl 25 MG TABLET 75 MG PO (20:40)
[2021-08-16] MEDS: Acetaminophen 325 MG TABLET 650 MG PO (20:53)
[2021-08-17 03:27] VITALS: BP 96/56; PULSE 74; RESP 16; TEMP 36.1; O2SAT 97
[2021-08-17] MEDS: Omeprazole 40 MG CAPSULE.DR PO (05:11)
[2021-08-17 05:19] VITALS: BP 98/59; PULSE 66; O2SAT 96
[2021-08-17 05:42] LABS: Glucose, Whole Blood 107 mg/dL (60-115)
[2021-08-17 05:54] LABS: Hematocrit 30.1 % (42.0-52.0); Hemoglobin 9.8 g/dl (14.0-18.0); Mean Corpuscular HGB Conc 32.6 g/dl (31.0-36.0); Mean Corpuscular Hemoglobin 29.6 pg (27.0-33.0); Mean Corpuscular Volume 90.9 fL (80.0-98.0); Platelet Count 336 X10*3/uL (160-400); Red Blood Count 3.31 X10*6/uL (4.60-5.80); Red Cell Distribution Width 17.9 % (11.0-16.0); White Blood Count 10.2 X10*3/uL (4.8-10.8)
--- NOTE | 2021-08-17 05:55 | PC.NURSE ---
PT seen around 5am to give scheduled med, pt was hard to awaken, opens eyes but confused, not uttering any word but just moaning, stimulated by shaking him harder but still the same response, asked pt to open mouth and stick his tongue out but unable too, and drifting back to sleep, VSS, LDK=[id number], Dr. Chavez was in the unit and asked to come see the pt, CNAs turned pt to be cleaned from incontinence, Dr. Chavez came at bedside and pt that time was able to speak up, and now oriented x3, STAT ABG was done by RT, CT scan and CXR cancelled, pt was able to swallow po med.
[2021-08-17 06:02] LABS: ABG Base Excess 10.4 mmol/L; ABG HCO3 33 mmol/L (22-26); ABG pCO2 36 mmHg (32-45); ABG pH 7.56 (7.35-7.45); ABG pO2 98 mmHg (83-108)
[2021-08-17 06:04] LABS: INTERNATIONAL NORM RATIO 1.4 (0.9-1.1); Prothrombin Time 15.7 SEC (9.9-13.0)
[2021-08-17 06:17] LABS: B Type Natriuretic Peptide 615 pg/mL (<100)
[2021-08-17 06:21] LABS: ABG Refer to POC result
[2021-08-17 06:22] LABS: Anion Gap 13 (12-20); Blood Urea Nitrogen 106 mg/dL (9-16); Calcium 8.3 mg/dL (8.4-10.2); Carbon Dioxide 33 mmol/L (22-29); Chloride 95 mmol/L (96-108); Creatinine Clr Calc Pharmacy 39.3; Estimated Glomerular Filt Rate 24; Glucose Random 111 mg/dL (60-115); Potassium 3.3 mmol/L (3.3-5.1); Sodium 138 mmol/L (135-145)
[2021-08-17 06:56] VITALS: BP 126/67; PULSE 60; RESP 19; TEMP 36.1; O2SAT 95
[2021-08-17 07:13] LABS: Glucose, Whole Blood 118 mg/dL (60-115)
[2021-08-17] MEDS: Insulin Lispro 100 UNIT/ML 3 ML VIAL SUBCUT ×2 (07:52→12:08)
[2021-08-17] MEDS: Potassium Chloride ER 20 MEQ TAB.ER.PRT PO (07:56)
[2021-08-17] MEDS: Torsemide 20 MG TABLET 100 MG PO (07:56)
[2021-08-17] MEDS: Isosorbide Mononitrate 60 MG TAB.ER.24H PO (07:57)
[2021-08-17] MEDS: Atorvastatin Calcium 80 MG TABLET PO (07:58)
[2021-08-17] MEDS: Ascorbic Acid 500 MG TABLET PO (07:58)
[2021-08-17] MEDS: Metoprolol Succinate ER 25 MG TAB.ER.24H PO (07:58)
[2021-08-17] MEDS: Ferrous Sulfate 324 MG TABLET.DR PO (07:58)
[2021-08-17] MEDS: hydrALAZINE HCl 25 MG TABLET PO (07:59)
[2021-08-17] MEDS: Ammonium Lactate 12 % Cream 140 GM TUBE 1 APPL TOPICAL (07:59)
[2021-08-17] MEDS: 0.9 % Sodium Chloride Flush 3 ML SYRINGE IVFLUSH (08:00)
--- NOTE | 2021-08-17 09:43 | P.PNNP_ITS ---
Subjective Subjective Date of Service: 08/17/21 Principal diagnosis: NIRAJ on CKD, chronic diastolic HF Interval history: Events noted Anxious to go home Physical Exam Vital Signs: Vital Signs: Last Vital Signs Temp 97 F 08/17/21 06:56 Pulse 60 08/17/21 06:56 Resp 19 08/17/21 06:56 BP 126/67 08/17/21 06:56 Pulse Ox 95 08/17/21 06:56 Oxygen Flow Rate 3 07/22/21 04:00 BMI result Body Mass Index 39.2 Const: General: no acute distress Neck: Neck: Yes supple Resp: Auscultation: clear to auscultation bilaterally GI: Palpation (GI): Soft to palpation Auscultation: normal bowel sounds Skin: General skin exam: no rashes or lesions noted Neuro: Motor exam (neuro): No Asterixis during motor activity present Objective Data Labs CBC & Chem 7: 08/17/21 05:37 08/17/21 05:37 Labs: Laboratory Results - last 24 hr 08/16/21 08/16/21 08/16/21 11:09 16:31 19:39 WBC RBC Hgb Hct MCV MCH MCHC RDW Plt Count MPV Absolute Nucleated RBC Nucleated RBC % (auto) PT INR O2 Saturation ABG pH at Pt Temp ABG pCO2 at Pt Temp ABG pO2 at Pt Temp ABG HCO3 ABG Base Excess (Actual) Sodium Potassium Chloride Carbon Dioxide Anion Gap BUN Creatinine Estim Creat Clear Calc Estimated GFR POC Glucose 166 H 119 H 150 H Random Glucose Calcium B-Natriuretic Peptide 08/17/21 08/17/21 08/17/21 05:21 05:37 05:37 WBC 10.2 RBC 3.31 L Hgb 9.8 L Hct 30.1 L MCV 90.9 MCH 29.6 MCHC 32.6 RDW 17.9 H Plt Count 336 MPV 9.0 L Absolute Nucleated RBC 0.000 Nucleated RBC % (auto) 0.0 PT 15.7 H INR 1.4 H O2 Saturation ABG pH at Pt Temp ABG pCO2 at Pt Temp ABG pO2 at Pt Temp ABG HCO3 ABG Base Excess (Actual) Sodium Potassium Chloride Carbon Dioxide Anion Gap BUN Creatinine Estim Creat Clear Calc Estimated GFR POC Glucose 107 Random Glucose Calcium B-Natriuretic Peptide 08/17/21 08/17/21 08/17/21 05:37 05:37 05:55 WBC RBC Hgb Hct MCV MCH MCHC RDW Plt Count MPV Absolute Nucleated RBC Nucleated RBC % (auto) PT INR O2 Saturation 98.0 ABG pH at Pt Temp 7.56 H ABG pCO2 at Pt Temp 36 ABG pO2 at Pt Temp 98 ABG HCO3 33 H ABG Base Excess (Actual) 10.4 Sodium 138 Potassium 3.3 Chloride 95 L Carbon Dioxide 33 H Anion Gap 13 BUN 106 H Creatinine 2.75 H Estim Creat Clear Calc 39.3 Estimated GFR 24 POC Glucose Random Glucose 111 Calcium 8.3 L B-Natriuretic Peptide 615 H 08/17/21 06:56 WBC RBC Hgb Hct MCV MCH MCHC RDW Plt Count MPV Absolute Nucleated RBC Nucleated RBC % (auto) PT INR O2 Saturation ABG pH at Pt Temp ABG pCO2 at Pt Temp ABG pO2 at Pt Temp ABG HCO3 ABG Base Excess (Actual) Sodium Potassium Chloride Carbon Dioxide Anion Gap BUN Creatinine Estim Creat Clear Calc Estimated GFR POC Glucose 118 H Random Glucose Calcium B-Natriuretic Peptide Microbiology Microbiology Results: Microbiology 08/12/21 Unknown Urine Catheterized - Mcknight Catheter Urine Culture - Final Escherichia coli 07/17/21 15:05 Blood - Venous Blood Culture - Final No growth after 5 days. 07/17/21 14:48 Blood - Venous Blood Culture - Final No growth after 5 days. Procedures Date of Service Date of Service: 08/17/21 Assessment & Plan Assessment and plan (1) NIRAJ (acute kidney injury): Status: Acute Plan 61yo M with HTN, HFpEF with cardioMEMS device in place, HLD, CAD, DM2, DARLENE, severe pHTN, AF on warfarin, CKD3-4, hx CVA, polycythemic vera, chronic hypoxic respiratory failure on 2L recent admission to [facility] for CHF exacerbation presenting with nausea/vomiting, dizziness NIRAJ on CKD stage 3: Creatinine relatively stable. Noted underlying CKD. BUN remains elevated. Avoid nephrotoxic medications acute on chronic HFpEF Continue Torsemide home dose. follow BMP and BNP continue iron and LIDYA for anemia. hematuria- urology following. 2/2 traumatic mcknight. No indication for renal biopsy. Shall follow with team Time Spent With Patient Time: Total time spent is greater than 50% in coordination of care (as documented) at patient's floor/unit and/or counseling patient: Time with patient: 15 - 24 minutes Progress Note: Quality Stroke Does the patient have a stroke diagnosis?: No
[2021-08-17] MEDS: Magnesium Hydrox/Alum Hydrox 30 ML ORAL.SUSP PO (10:58)
[2021-08-17] MEDS: Tranexamic Acid 1,000 MG in 0.9 % Sodium Chloride 50 ML 360 MG IV (10:59)
[2021-08-17 11:13] VITALS: BP 124/69; PULSE 65; RESP 20; TEMP 36.1; O2SAT 96
[2021-08-17 11:29] LABS: Glucose, Whole Blood 189 mg/dL (60-115)
--- NOTE | 2021-08-17 11:57 | P.DS_ITS ---
DS: Providers Provider Date of Service: 08/17/21 Date of admission: 07/17/21 16:23 Primary care physician: Jcarlos Melgar MD Consults: 07/17/21 13:59 Consult to Cardiology Stat Consulting Provider: Drake Nguyen Reason for consultation: afib, bigemy, new EKG changes, chest pain, hx CHF, MA Has provider been notified: Yes 07/17/21 16:26 Consult to Neurology Routine Consulting Provider: [facility] Reason for consultation: persistent dizziness with N/V ?post circ cva; unable to tolerate MRI Has provider been notified: No 07/18/21 05:31 Consult to Urology Routine Consulting Provider: Tee Garrido Reason for consultation: hematuria post mcknight insertion. urinary retention Has provider been notified: No 08/10/21 09:56 Consult to Nephrology Routine Consulting Provider: Kevin Hewitt Reason for consultation: NIRAJ on CKD for your kind eval. 08/12/21 10:46 Consult to Hematology / Oncology Routine Consulting Provider: An Archuleta Reason for consultation: Pt on Coumadin, Hematuria for 2 wks, Elevated BUN, for your advice. DS: Diagnosis Discharge Diagnosis (1) NIRAJ (acute kidney injury): Status: Acute DS: Summary Hospital Course Hospital Course: 61yo M with HTN, HFpEF with cardioMEMS device in place, HLD, CAD, DM2, DARLENE, severe pHTN, AF on warfarin, CKD3-4, hx CVA, polycythemic vera, chronic hypoxic respiratory failure on 2L recent admission to [facility] for CHF exacerbation, presented with nausea/vomiting, dizziness. patient had prolonged hospital stay, for full course please see medical record. patient was noted to hace acute pontine infarct, was continued on coumadin and statin, no obvious residual defecits. he had niraj on CKD III which stabilized with creatinine around 2.7. patient had acute on chronic diastolic chf, was diuresed well - almost 25L, continued on torsemide and metolazone, noted to be persistently hypokalemic, maintance potassium increased from 40meq daily to 40mew bid, has still been borderline hypokalemic on that dose. course was complicated by urinary retention leading to acute on blood loss anemia from hematuria due to traumatic mcknight. given recent cva, we were hesitent to hold comadin, he did require 2 units prbc, received iv iron. eventually, due to ongoing bleeding, decision made to hold coumadin and reverse. bleeding has stopped. will continue to hold one more week, then rechallenge, patient should keep mcknight with intermittent draining, follow up with urology as outpatient. Time Spent with Patient Time attestation: Total time spent providing and/or coordinating discharge services: Discharge coordination time: Greater than 30 minutes Quality: Stroke Does the patient have a stroke diagnosis?: Yes Reason for No Anti-thrombotic at DC: Drug intolerance Reason for No Anticoagulant at DC: Drug intolerance Reason Not Initiating IV-Tpa: Not indicated Reason for No Anti-thrombotic by Day Two: N/A - Med Ordered Reason for No Statin at DC: N/A - Med Ordered Physical Exam Vital Signs: Vital Signs: Last Vital Signs Temp 97 F 08/17/21 11:13 Pulse 65 08/17/21 11:13 Resp 20 08/17/21 11:13 BP 124/69 08/17/21 11:13 Pulse Ox 96 08/17/21 11:13 Oxygen Flow Rate 3 07/22/21 04:00 BMI result Body Mass Index 39.2 Const General:?no acute distress Neck Neck:?Yes supple Resp Auscultation:?clear to auscultation bilaterally GI Palpation (GI):?Soft to palpation Auscultation:?normal bowel sounds Skin General skin exam:?no rashes or lesions noted Neuro Motor exam (neuro):?No Asterixis during motor activity present DS: Data Data Completed and Pending Labs on day of discharge: Laboratory Results - last 24 hr 08/16/21 08/16/21 08/17/21 16:31 19:39 05:21 WBC RBC Hgb Hct MCV MCH MCHC RDW Plt Count MPV Absolute Nucleated RBC Nucleated RBC % (auto) PT INR O2 Saturation ABG pH at Pt Temp ABG pCO2 at Pt Temp ABG pO2 at Pt Temp ABG HCO3 ABG Base Excess (Actual) Sodium Potassium Chloride Carbon Dioxide Anion Gap BUN Creatinine Estim Creat Clear Calc Estimated GFR POC Glucose 119 H 150 H 107 Random Glucose Calcium B-Natriuretic Peptide 08/17/21 08/17/21 08/17/21 05:37 05:37 05:37 WBC 10.2 RBC 3.31 L Hgb 9.8 L Hct 30.1 L MCV 90.9 MCH 29.6 MCHC 32.6 RDW 17.9 H Plt Count 336 MPV 9.0 L Absolute Nucleated RBC 0.000 Nucleated RBC % (auto) 0.0 PT 15.7 H INR 1.4 H O2 Saturation ABG pH at Pt Temp ABG pCO2 at Pt Temp ABG pO2 at Pt Temp ABG HCO3 ABG Base Excess (Actual) Sodium 138 Potassium 3.3 Chloride 95 L Carbon Dioxide 33 H Anion Gap 13 BUN 106 H Creatinine 2.75 H Estim Creat Clear Calc 39.3 Estimated GFR 24 POC Glucose Random Glucose 111 Calcium 8.3 L B-Natriuretic Peptide 08/17/21 08/17/21 08/17/21 05:37 05:55 06:56 WBC RBC Hgb Hct MCV MCH MCHC RDW Plt Count MPV Absolute Nucleated RBC Nucleated RBC % (auto) PT INR O2 Saturation 98.0 ABG pH at Pt Temp 7.56 H ABG pCO2 at Pt Temp 36 ABG pO2 at Pt Temp 98 ABG HCO3 33 H ABG Base Excess (Actual) 10.4 Sodium Potassium Chloride Carbon Dioxide Anion Gap BUN Creatinine Estim Creat Clear Calc Estimated GFR POC Glucose 118 H Random Glucose Calcium B-Natriuretic Peptide 615 H 08/17/21 11:13 WBC RBC Hgb Hct MCV MCH MCHC RDW Plt Count MPV Absolute Nucleated RBC Nucleated RBC % (auto) PT INR O2 Saturation ABG pH at Pt Temp ABG pCO2 at Pt Temp ABG pO2 at Pt Temp ABG HCO3 ABG Base Excess (Actual) Sodium Potassium Chloride Carbon Dioxide Anion Gap BUN Creatinine Estim Creat Clear Calc Estimated GFR POC Glucose 189 H Random Glucose Calcium B-Natriuretic Peptide Discharge Plan Discharge Patient Disposition: Home Health Service Discharge Diagnosis: chf, hematuria Referrals: jeremy horvath [Other] - 1 Week Tee Garrido MD [Physician] - 1 Week Jcarlos Melgar MD [Primary Care Provider] - 1 Week Discharge Medications: New omeprazole 40 mg Capsule,Delayed Release(Dr/Ec) 40 mg PO DAILY Qty: 30 0RF potassium chloride 20 mEq Tablet,Er Particles/Crystals 40 meq PO BID Qty: 120 0RF Continued atorvastatin 80 mg tablet 1 tab PO DAILY 0RF amitriptyline 50 mg tablet 1 tab PO DAILY 0RF Humulin R U-500 (Conc) Insulin 500 unit/mL solution 20 unit subcut QAM 0RF metoprolol succinate 25 mg tablet extended release 24 hr 1 tab PO DAILY 0RF Trulicity 1.5 mg/0.5 mL pen injector 1 mg subcut QWEEK 0RF Rx Instructions: mondays metolazone 5 mg tablet 1 tab PO DAILY 0RF hydralazine 25 mg tablet 1 tab PO TID 0RF isosorbide mononitrate 60 mg tablet extended release 24 hr 1 tab PO DAILY 0RF torsemide 100 mg tablet 1 tab PO BID 0RF ascorbic acid (vitamin C) 500 mg Tablet 500 mg PO DAILY 0RF Humulin R U-500 (Conc) Insulin 500 unit/mL solution 10 unit subcut BEDTIME 0RF amitriptyline 50 mg tablet 150 mg PO BEDTIME 0RF Held warfarin 2.5 mg tablet 2 tab PO LU 0RF Hold Instructions: Resume on 08/24/21. Protocol: Dose Management Condition: Sunday (Week One) Dose/Route: 5 mg Instruction: 2 x 2.5 mg tablets Condition: Sunday Dose/Route: 2.5 mg Instruction: 1 x 2.5 mg tablet Condition: Sunday Dose/Route: 2.5 mg Instruction: 1 x 2.5 mg tablet Condition: Sunday Dose/Route: 2.5 mg Instruction: 1 x 2.5 mg tablet Condition: Dose/Route: 2.5 mg Instruction: 1 x 2.5 mg tablet Condition: Sunday Dose/Route: 2.5 mg Instruction: 1 x 2.5 mg tablet Condition: Sunday Dose/Route: 2.5 mg Instruction: 1 x 2.5 mg tablet Condition: Sunday (Week Two) Dose/Route: 5 mg Instruction: 2 x 2.5 mg tablets Condition: Sunday Dose/Route: 2.5 mg Instruction: 1 x 2.5 mg tablet Condition: Sunday Dose/Route: 2.5 mg Instruction: 1 x 2.5 mg tablet Condition: Sunday Dose/Route: 2.5 mg Instruction: 1 x 2.5 mg tablet Condition: Dose/Route: 2.5 mg Instruction: 1 x 2.5 mg tablet Condition: Sunday Dose/Route: 2.5 mg Instruction: 1 x 2.5 mg tablet Condition: Sunday Dose/Route: 2.5 mg Instruction: 1 x 2.5 mg tablet Protocol Text: Adjustment Start Date: Sunday04/27/21 INR Value: 3.1 INR Date: 04/27/21 Additional Instructions: ADD A FEW GREENS THIS WEEK SAME WARFARIN DOSING RETURN 2 WEEKS warfarin 2.5 mg tablet 1 tab PO MOTUWETHFRSA 0RF Hold Instructions: Resume on 08/24/21. Discontinued digoxin 125 mcg (0.125 mg) tablet 1 tab PO DAILY 0RF potassium chloride 10 mEq capsule, extended release 10 meq PO DAILY 0RF amlodipine 10 mg tablet 1 tab PO DAILY 0RF Discharge Orders: Discharge Order (Routine); Ordered 08/17/21 Ordered By: Jone Petty Diet: advance to usual diet Activity on Discharge: As tolerated Stand Alone Forms: Patient Portal Discharge page Care Plan Goals: recovery Health Concerns: hematuria, chf, cva Plan of Treatment: rechallenge with coumadin in one week, montior for bleeding, drain catheter e very 4-6 hours while awake, follow up with dr garrido of urology Assessment: see above
--- NOTE | 2021-08-17 12:04 | W.MHC.F2F ---
Service Date Service Date: 08/17/21 Encounter Date of encounter: 08/17/21 Reasons for Services Signs and symptoms assessed: weakness Reason for long-term: medication management, medication treatment, teach disease management and GI/ assessment (capped mcknight, drain q4-6 hours while awake, follow up with urology for voiding trial, flush with 30cc NS daily) Homebound: Leaving the home is medically contraindicated at this time without the asist of a device and/or another person due th the listed conditions above and below. Reason homebound: unsteady gait / fall risk Certification: Based on the above findings, I certify that this patient is confined to the home and needs intermittent long-term care, physical therapy and/or speech therapy, or continues to need occupational therapy. The patient is under my care, and I have initiated the establishment of the plan of care. The patient will be followed by a physician who will periodically review the plan of care.
[2021-08-17] MEDS: Potassium Chloride ER 20 MEQ TAB.ER.PRT 40 MEQ PO (12:08)
--- NOTE | 2021-08-17 12:24 | MHC.CM.PN ---
pt dcd today hvns notified of dc
--- NOTE | 2021-08-17 14:02 | MHC.CM.PN ---
PT DISCHARGING HOME W/ADULT [facility]OST[facility] 24/HR CARE W/NEW [facility] FOR SN FOR TEMP CAPPED PERDUE W/DRAINING Q4HRS WHILE AWAKE AND HOME PT, [facility] FAMILY TO TRANSPORT AND SHOWN CATHETER CARE PRIOR TO D/C.
== END 2021-08-17 14:10 | disposition home health service (06) | DRG 291 ==
LOC: HO.ED 15:33 → HO.EDOVER 16:44 → HO.IMC 07-20 18:56 → HO.S3 07-20 21:54 → HO.EDOVER 07-21 01:23 → HO.S3 07-21 16:00
PROVIDERS: Family Medicine; Hospitalist; Internal Medicine; Nurse Practitioner Family; Physician Assistant; Student in an Organized Health Care Education/Training Program; Admitting Provider Physician Assistant Medical; Emergency Provider Emergency Medicine; PCP Internal Medicine; Visit Provider Internal Medicine
DX: I13.0 Hypertensive heart and chronic kidney disease with heart failure and stage 1 through stage 4 chronic kidney disease, or unspecified chronic kidney disease (principal); J96.21 Acute and chronic respiratory failure with hypoxia; K22.6 Gastro-esophageal laceration-hemorrhage syndrome; I63.89 Other cerebral infarction; I50.33 Acute on chronic diastolic (congestive) heart failure; Z95.811 Presence of heart assist device; I48.21 Permanent atrial fibrillation; Z68.41 Body mass index [BMI] 40.0-44.9, adult; T83.83XA Hemorrhage due to genitourinary prosthetic devices, implants and grafts, initial encounter; N18.4 Chronic kidney disease, stage 4 (severe); D62 Acute posthemorrhagic anemia; E11.65 Type 2 diabetes mellitus with hyperglycemia; E78.5 Hyperlipidemia, unspecified; G47.33 Obstructive sleep apnea (adult) (pediatric); E11.22 Type 2 diabetes mellitus with diabetic chronic kidney disease; E87.6 Hypokalemia; R31.0 Gross hematuria; D72.829 Elevated white blood cell count, unspecified; I27.20 Pulmonary hypertension, unspecified; N50.89 Other specified disorders of the male genital organs; I25.10 Atherosclerotic heart disease of native coronary artery without angina pectoris; E66.01 Morbid (severe) obesity due to excess calories; Z20.822 Contact with and (suspected) exposure to COVID-19; Z79.4 Long term (current) use of insulin; Z79.01 Long term (current) use of anticoagulants; Z79.899 Other long term (current) drug therapy
CPT/HCPCS: 36415; 70450; 70551; 71045; 80048; 80061; 80076; 80162; 80307; 81001; 82009; 82077; 82550; 82803; 82947; 83036; 83540; 83605; 83690; 83735; 83880; 84132; 84300; 84484; 85014; 85018; 85025; 85027; 85610; 85730; 86850; 86900; 86901; 86923; 87040; 87086; 87088; 87186; 87635; 93005; 94660; 96361; 96374; 97110; 97161; 97530; 99232; 99285; 99291; C1758; J1170; J1940; J2060; J2405; J2916; P9016

== ENCOUNTER 2021-08-18 09:02 | Inpatient (IN) | payer MEDICARE, MEDICAID, SELFPAY ==
--- NOTE | ~2021-08-18 | CT_ITS ---
CT head/brain wo con CLINICAL INFORMATION: Reason for Exam follow up, recent fall, now change in mental statu COMPARISON: Prior CT 1 day earlier TECHNIQUE: Department standard protocol. Noncontrasted study This CT examination was performed using dose optimization techniques as appropriate, variously including the following: *Automated exposure control *Adjustment of mA and/or kV according to patient size (this includes techniques or standardized protocols for targeted exams where dose is matched to indication/reason for exam; i.e. extremities or head) *Use of iterative reconstruction technique DLP: 943 mGy-cm FINDINGS: CEREBRAL HEMISPHERES: Area of encephalomalacia in the left temporal occipital region old injury unchanged from prior exam. BRAIN PARENCHYMA: Normal watkins-white matter differentiation. SUBDURAL SPACE: No bleed. BASAL GANGLIA AND PINEAL GLAND: Unremarkable VENTRICLES: Symmetric and normal in size. CEREBELLUM AND BRAINSTEM: No space-occupying mass, hemorrhage or acute infarct. CEREBELLOPONTINE ANGLES: No lesion found. ORBITS: No intraorbital mass. VESSELS: Unremarkable SKULL BASE: Unremarkable INCLUDED SINUSES AT SKULL BASE: Clear SKULL AND SKIN: No fracture or bone lesion found. CT/CT head/brain wo con IMPRESSION: *No acute change. *Redemonstration of the area of encephalomalacia in the left temporal occipital region likely diagnosis from an old injury unchanged. *No intracranial bleed. Normal CT scan does not rule out the possibility of hyperacute infarct in the first 12 hours. If patient symptoms persist may consider correlation with MRI, which is more sensitive for early acute infarct.
--- NOTE | ~2021-08-18 | CT_ITS ---
EXAMINATION: CT CHEST AND CT HEAD WITHOUT CONTRAST. CLINICAL INFORMATION: SOB, hypoxia, Covid positive. Fall. Head injury. COMPARISON: None TECHNIQUE: 5 mm thin axial and reformatted 3 mm thin sagittal and coronal images of chest were obtained without contrast. DLP 451. Axial 5 mm thin and reformatted 2 mm thin sagittal and coronal images of brain were obtained without contrast. DLP 727 FINDINGS: Brain: There is a left occipital lobe encephalomalacia from old injury. There is no acute infarction evolution. There is no acute intra-axial, extra-axial bleed, masses or midline shift. The lateral ventricles are symmetrical in size but mildly enlarged. Extra-axial phenomena left occipital on lateral ventricle is noted there is no edema. The watkins to white matter difference is maintained. Bone windows reveal no calvarial abnormality. There is no scalp soft tissue abnormality. There is complete opacification of left sphenoid and right maxillary sinuses. Rest of the paranasal sinuses and mastoid air cells are well-aerated. CHEST: The lungs are well-expanded without acute pneumonic process. There are punctate 2 mm calcified nodules in both lungs. Also visualized is subpleural calcified nodules in right lower lobe and left lower lobe. There is left lower lobe compressive atelectasis. There is breathing artifact throughout both lungs limiting evaluation. There are bilateral small pleural effusions with underlying atelectasis. No calcified pleural plaque seen. The thyroid lobes are symmetrical and normal. The central trachea and the bronchi are widely patent. Heart size is enlarged. The great vessels are normal caliber. There are coronary artery calcifications.. No pericardial effusion seen. There are reactive small subcarinal and pretracheal lymph nodes. The axilla and the chest wall appears unremarkable. Bone windows reveal no aggressive lytic or sclerotic process. No fracture. 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 No acute intracranial process seen. There are bilateral small pleural effusions with underlying left lower lobe compressive atelectasis. Reactive lymph nodes in the mediastinum. Mild cardiomegaly.
[2021-08-18 09:23] VITALS: BP 118/59; BP 130/70; PULSE 60; PULSE 73; RESP 17; TEMP 37; O2SAT 92; O2SAT 99; BMI 33.5
--- NOTE | 2021-08-18 09:26 | PC.NURSE ---
Addendum entered by Ashley Amado RN 08/18/21 09:31: printer without ink - spoke with Michelle and will attempt to contact [facility] floors to use their printer Original Note: image of wound to buttock taken and printed in chart. wound covered with a foam dressing.
[2021-08-18 09:38] LABS: Glucose, Whole Blood 177 mg/dL (60-115)
--- NOTE | 2021-08-18 09:46 | ED_ITS ---
HPI - Male Genitourinary General Chief complaint: Urogenital-Male <BRENTON Baker - Last Filed: 08/18/21 16:23> Stated complaint: BLOOD IN PERDUE CATH PER EMS <BRENTON Baker - Last Filed: 08/18/21 16:23> Time Seen by Provider: 08/18/21 09:30 <BRENTON Baker - Last Filed: 08/18/21 16:23> Source: patient <BRENTON Baker - Last Filed: 08/18/21 16:23> Mode of arrival: EMS <BRENTON Baker - Last Filed: 08/18/21 16:23> History of Present Illness HPI Narrative: 61-year-old male with a past medical history of atrial fibrillation on Coumadin, polycythemia vera, obstructive sleep apnea, chronic hypoxic respiratory failure on 2 L of oxygen, insulin-dependent diabetic, chronic heart failure with an ejection fraction of 30%, [place] at age 22, history CVA 20 0 8, and chronic kidney disease, who was discharged from the hospital for stay for acute kidney injury yesterday, and who presented to the emergency room where short- term rehab was recommended, presents today for dark urine, and Perdue not draining. 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 He states that 2 times prior to that the urine was black. Short-term rehab was recommended yesterday upon hospital discharge, the patient refused. Patient endorses last urine being passed at 04:20 this morning, a sore on his butt, and a headache. States he would now like to go to short-term rehab. Denies chest pain, shortness of breath, abdominal pain, vomiting, diarrhea, nausea. Denies lightheadedness, dizziness, heart palpitations, focal weakness, numbness or tingling, visual changes, visual loss. <BRENTON Baker - Last Filed: 08/18/21 16:23> Related Data Home medications: Home Medications Medication Instructions Recorded Confirmed amitriptyline 50 mg tablet 1 tab PO DAILY 05/08/20 08/18/21 atorvastatin 80 mg tablet 1 tab PO DAILY 05/08/20 08/18/21 dulaglutide 1.5 mg/0.5 mL 1 mg SUBCUT QWEEK 05/08/20 08/18/21 subcutaneous pen injector (Trulicity) insulin regular hum U-500 conc 500 20 unit SUBCUT QAM 05/08/20 08/18/21 unit/mL subcutaneous soln (Humulin R U-500 (Concentrated) Insulin) metoprolol succinate 25 mg 1 tab PO DAILY 05/08/20 08/18/21 tablet,extended release 24 hr warfarin 2.5 mg tablet 2 tab PO LU 05/08/20 08/18/21 amitriptyline 50 mg tablet 150 mg PO BEDTIME 07/17/21 08/18/21 ascorbic acid (vitamin C) 500 mg 500 mg PO DAILY 07/17/21 08/18/21 tablet hydralazine 25 mg tablet 1 tab PO TID 07/17/21 08/18/21 insulin regular hum U-500 conc 500 10 unit SUBCUT BEDTIME 07/17/21 08/18/21 unit/mL subcutaneous soln (Humulin R U-500 (Concentrated) Insulin) isosorbide mononitrate 60 mg 1 tab PO DAILY 07/17/21 08/18/21 tablet,extended release 24 hr metolazone 5 mg tablet 1 tab PO DAILY 07/17/21 08/18/21 torsemide 100 mg tablet 1 tab PO BID 07/17/21 08/18/21 warfarin 2.5 mg tablet 1 tab PO MOTUWETHFRSA 07/17/21 08/18/21 Previous Rx's Medication Instructions Recorded omeprazole 40 mg capsule,delayed 40 mg PO DAILY #30 cap 08/17/21 release potassium chloride 20 mEq 40 meq PO BID #120 tab 08/17/21 tablet,extended release(part/cryst) <BRENTON Baker - Last Filed: 08/18/21 16:23> Allergies/Adverse reactions: Allergies Allergy/AdvReac Type Severity Reaction Status Date / Time No Known Allergies Allergy Unknown NKDA Verified 08/18/21 13:21 <BRENTON Baker - Last Filed: 08/18/21 16:23> Review of Systems Constitutional: Constitutional: Denies body ache(s), Denies chills, Denies fat igue, Denies fever(s), Reports frequent falls, Reports headache(s), Denies malaise and Denies weakness <BRENTON Baker - Last Filed: 08/18/21 16:23> Eyes: Eyes: Denies blurry vision, Denies diplopia and Denies loss of vision <Prema [facility] Last Filed: 08/18/21 16:23> ENT: Denies vertigo, Denies dizziness, Denies otalgia, Reports headache(s), Denies mouth pain, Denies post nasal drip, Denies sinus pain, Denies sinus pressure, Denies sore throat and Denies throat swelling <Prema Hall [facility] Last Filed: 08/18/21 16:23> Cardiovascular: Cardiovascular: Denies chest pain, Denies syncope, Denies leg edema, Denies lightheadedness, Denies Loss of Consciousness, Denies palpitations and Denies dyspnea <BRENTON Baker Last Filed: 08/18/21 16:23> Respiratory: Respiratory: Denies chest congestion, Denies cough and Denies dyspnea <BRENTON Baker Last Filed: 08/18/21 16:23> Gastrointestinal: Gastrointestinal: Denies abdominal pain, Denies hematochezia, Denies constipation, Denies diarrhea and Denies vomiting <Prema Hall [facility] Last Filed: 08/18/21 16:23> Genitourinary: Genitourinary: Reports hematuria, Reports oliguria, Denies genital lesions, Denies genital pain, Denies dysuria, Denies flank pain, Denies penile discharge, Denies scrotal swelling and Denies testicular pain <BRENTON Baker Last Filed: 08/18/21 16:23> Musculoskeletal: Musculoskeletal: Denies numbness and Denies tingling <Prema [facility] Last Filed: 08/18/21 16:23> Integumentary/Breasts: Comments: sore on buttock <BRENTON Baker Last Filed: 08/18/21 16:23> Neurologic: Denies confusion, Denies vertigo, Denies dizziness, Denies syncope, Reports frequent falls, Reports headache(s), Denies focal weakness, Denies loss of vision, Denies numbness, Denies Other visual disturbances, Denies tingling, Denies paresthesias and Denies weakness <BRENTON Baker Last Filed: 08/18/21 16:23> Psychiatric: Psychiatric: Denies anxiety, Denies confusion and Denies depression <BRENTON Baker - Last Filed: 08/18/21 16:23> Endocrine: Endocrine: Denies fatigue and Denies palpitations <BRENTON Baker - Last Filed: 08/18/21 16:23> Allergic/Immunologic: Allergic/Immunologic: Denies throat swelling <BRENTON Baker - Last Filed: 08/18/21 16:23> [facility] Past Medical History Medical History: Medical History Anasarca Atrial fibrillation CAD (coronary artery disease) Cataract Cholecystectomy planned Chronic combined systolic and diastolic congestive heart failure Chronic respiratory failure CKD (chronic kidney disease) stage 3, GFR 30-59 ml/min CVA (cerebral vascular accident) Diabetes Gross hematuria Heart attack HTN (hypertension) Hyperlipidemia Neuropathy DARLENE on CPAP Permanent atrial fibrillation Polycythemia vera Pulmonary hypertension Toe amputee Urinary retention with incomplete bladder emptying <BRENTON Baker - Last Filed: 08/18/21 16:23> Surgical History: Surgical History History of cholecystectomy <BRENTON Baker - Last Filed: 08/18/21 16:23> Family History Family History: Family History Father Diabetes Hx of cancer antigen 125 (CA-125) measurement Mother Diabetes Brother Diabetes Hx of cancer antigen 125 (CA-125) measurement <BRENTON Baker - Last Filed: 08/18/21 16:23> Social History Social History: Social History Household Members: Other Household Members Other:: 2 dairy products maker Housing: House Do you presently have visiting nurse or other home services: No Alcohol intake: former Patient Tobacco Use Status: Never used Tobacco Use of substances other than those prescribed or required for medical reasons: No Advance Directives: No Advance Directives Information Provided: No service: No Current occupational status: disabled <BRENTON Baker - Last Filed: 08/18/21 16:23> Physical Exam Vital Signs: Vital Signs: Last Vital Signs Temp 97.8 F 08/19/21 16:00 Pulse 72 08/19/21 20:14 Resp 19 08/19/21 20:14 BP 134/78 08/19/21 20:14 Pulse Ox 99 08/19/21 20:14 Oxygen Flow Rate 2 08/18/21 09:23 BMI result Body Mass Index 33.5 <BRENTON Baker - Last Filed: 08/18/21 16:23> Vital Signs: Last Vital Signs Temp 97.8 F 08/19/21 16:00 Pulse 72 08/19/21 20:14 Resp 19 08/19/21 20:14 BP 134/78 08/19/21 20:14 Pulse Ox 99 08/19/21 20:14 Oxygen Flow Rate 2 08/18/21 09:23 BMI result Body Mass Index 33.5 <Larisa Yang MD - Last Filed: 08/19/21 20:29> Const: General: no acute distress, alert, awake and ill appearing chronically; No confusion <BRENTON Baker - Last Filed: 08/18/21 16:23> Nutritional Appearance: cachectic <BRENTON Baker - Last Filed: 08/18/21 16:23> Orientation/consciousness: patient oriented x3 and No confusion <BRENTON Baker - Last Filed: 08/18/21 16:23> Limitations: no limitations and physical limitations <BRENTON Baker - Last Filed: 08/18/21 16:23> HENMT: Head: Yes normal to inspection, Yes normocephalic and Yes atraumatic <BRENTON Baker - Last Filed: 08/18/21 16:23> Ears: hearing grossly normal bilaterally and external ears normal <BRENTON Baker - Last Filed: 08/18/21 16:23> General nose exam: Normal external nose present <BRENTON Baker - Last Filed: 08/18/21 16:23> Face and sinus: Yes normal facial exam and Yes sinuses nontender <BRENTON Baker - Last Filed: 08/18/21 16:23> Mouth: Normal oral and palatal mucosa present <BRENTON Baker - Last Filed: 08/18/21 16:23> Throat: Yes posterior oropharynx normal <Prema Hall [facility] Last Filed: 08/18/21 16:23> Eyes: Conjunctivae: conjunctivae normal <Prema Hall [facility] Last Filed: 08/18/21 16:23> Pupils: Equal, round and reactive pupils present <Prema Hall [facility] Last Filed: 08/18/21 16:23> EOM: EOMs intact bilaterally <Prema Hall [facility] Last Filed: 08/18/21 16:23> Neck: Neck: Yes full ROM, Yes no lymphadenopathy and Yes supple <Prema Hall [facility] Last Filed: 08/18/21 16:23> Resp: Effort & Inspection: normal respiratory effort and able to speak in complete sentences <Prema Hall [facility] Last Filed: 08/18/21 16:23> Auscultation: clear to auscultation bilaterally, no crackles, no rales, no rhonchi and no wheezes <Prema Hall [facility] Last Filed: 08/18/21 16:23> Cardio: Rate: regular rate <Prema Hall [facility] Last Filed: 08/18/21 16:23> Rhythm: regular rhythm <Prema Hall [facility] Last Filed: 08/18/21 16:23> Heart sounds: S1 normal heart sound present and S2 normal heart sound present <Prema Hall [facility] Last Filed: 08/18/21 16:23> GI: Inspection: Yes normal to inspection <Prema Hall [facility] Last Filed: 08/18/21 16:23> Palpation (GI): Soft to palpation, nontender, no guarding and not rigid <Prema Hall [facility] Last Filed: 08/18/21 16:23> Percussion: Yes normal to percussion <Prema Hall [facility] Last Filed: 08/18/21 16:23> Auscultation: normal bowel sounds <Prema Hall [facility] Last Filed: 08/02 01/20 16:23> : Other: Perdue Catheter in place, not attached to bag. No gross blood. <Prema Hall [facility] Last Filed: 08/18/21 16:23> Skin: Other: Hemosiderin deposits bilateral lower extremities and feet. Sore on sacrum, RN put Mepilex on before I could evaluate <BRENTON Baker - Last Filed: 08/18/21 16:23> Neuro: General: patient oriented x3 and No confusion <BRENTON Baker Last Filed: 08/18/21 16:23> Cranial nerves: Yes Equal, round and reactive pupils present <BRENTON Baker Last Filed: 08/18/21 16:23> Extrem: General: Yes normal to inspection and Yes full ROM <BRENTON Baker Last Filed: 08/18/21 16:23> Psych: Appearance: grossly normal <BRENTON Baker Last Filed: 08/18/21 16:23> Affect: normal affect <BRENTON Baker Last Filed: 08/18/21 16:23> Attitude: cooperative <BRENTON Baker Last Filed: 08/18/21 16:23> Thought process: Normal thought process present <BRENTON Baker Last Filed: 08/18/21 16:23> Course Course Course Narrative: 61-year-old male with multiple comorbidities who was just discharged from his hospitalization at [facility] yesterday, and who return to the emergency room and short-term rehab was recommended, and to refuse short-term rehab and went home yesterday, returns today due to limited urine output and dark urine. Patient states he is willing to go to short-term rehab and to cooperate reds physical therapy today. On exam, patient is chronically ill, afebrile, satting 99 % on his usual 2 L, hemodynamically stable. Will get COVID swab and physical therapy evaluation for short-term rehab placement. In addition with bladder scan, get UA, get basic labs, do continuous bladder irrigation if needed. Patient's point of care blood sugar was 177. <BRENTON Baker Last Filed: 08/18/21 16:23> Reevaluation(s) Reevaluation #1: On bladder scan patient retaining 300 cc. No blood clots were passed. Patient getting continuous bladder irrigation now. Urine does not look grossly bloody, not dark. Patient has a leukocytosis of 11.7, his white blood cell count was 10.2 yesterday. Patient has a creatinine of 3.2, since early July patient's creatinine has not been over 2.7. Patient is also COVID positive. Patient retaining urine with no evidence of clot obstructing. Worsening kidney function, leukocytosis. Will get urine, patient needs to be readmitted. <BRENTON Baker - Last Filed: 08/18/21 16:23> Reevaluation #2: Patient has a UTI, with elevated leukocytosis, urine shows 3+ leukocyte esterase, and too many to count white blood cells. Getting blood cultures, lactic, treat with ceftriaxone. Discussed admission with hospitalist, who is discussing case with pillowcase cutter [facility], seeing if patient is able to be admitted <BRENTON Baker - Last Filed: 08/18/21 16:23> Time: 15:46 <BRENTON Baker - Last Filed: 08/18/21 16:23> Reevaluation #3: Will place patient in physician knobs at this time awaiting case management help with disposition. Hospitalist does not see an admissible diagnosis. <BRENTON Baker - Last Filed: 08/18/21 16:23> Time: 18:30 <Larisa Yang MD - Last Filed: 08/19/21 20:29> Additional Reevaluation(s): I was informed that the patient was in the observation unit. Patient got out of bed, fell, hit his head. Patient did not lose consciousness. However, patient was found on the floor with his nasal cannula on saturating in the low 80s. Patient was helped back to bed, oxygen improved to low 90s on [address] Head [address] and chest CT are pending. Patient known to be COVID positive. Patient is requiring increased oxygen. At this time CTA cannot be performed due to renal function. V/Q scan cannot be done at this time. Fortunately, patient is already on Coumadin. I discussed the patient with Dr. 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 ? No acute intracranial process seen. ? There are bilateral small pleural effusions with underlying left lower lobe compressive atelectasis. ? Reactive lymph nodes in the mediastinum. ? Mild cardiomegaly. <Larisa Yang MD - Last Filed: 08/19/21 20:29> MDM - Male Genitourinary Lab Data Result diagrams: : 08/18/21 10:12 08/19/21 08:28 <BRENTON Baker - Last Filed: 08/18/21 16:23> Labs: Lab Results 08/18/21 08/18/21 08/18/21 Range/Units 09:34 09:47 10:12 WBC 11.7 H (4.8-10.8) X10*3/uL RBC 2.94 L (4.60-5.80) X10*6/uL Hgb 8.7 L (14.0-18.0) g/dl Hct 26.8 L (42.0-52.0) % MCV 91.2 (80.0-98.0) fL MCH 29.6 (27.0-33.0) pg MCHC 32.5 (31.0-36.0) g/dl RDW 18.0 H (11.0-16.0) % Plt Count 318 (160-400) X10*3/uL MPV 8.5 L (9.4-12.4) fL Immature Gran % (Auto) 0.6 H (0.0-0.4) % Neut % (Auto) 84.0 H (45-73) % Lymph % (Auto) 5.0 L (20-40) % [place] % (Auto) 8.7 (2-11) % Eos % (Auto) 1.4 (0-4) % Baso % (Auto) 0.3 (0-2) % Lymph # (Auto) 0.6 L (1.2-4.9) X10*3/uL [place] # (Auto) 1.0 (0.1-1.2) X10*3/uL Eos # (Auto) 0.2 (0.0-0.4) X10*3/uL Baso # (Auto) 0.0 (0.0-0.2) X10*3/uL Abs Immat Gran (auto) 0.07 H (0.00-0.03) X10*3/uL Absolute Neuts (auto) 9.9 H (2.0-8.3) x10*3/uL Absolute Nucleated RBC 0.000 (0.0-0.012) X10*3/uL Nucleated RBC % (auto) 0.0 (0.0-0.2) /100WBC PT (9.9-13.0) SEC INR (0.9-1.1) Sodium (135-145) mmol/L Potassium (3.3-5.1) mmol/L Chloride (96-108) mmol/L Carbon Dioxide (22-29) mmol/L Anion Gap (12-20) BUN (9-16) mg/dL Creatinine (0.5-1.4) mg/dL Estim Creat Clear Calc Estimated GFR POC Glucose 177 H (60-115) mg/dL Random Glucose (60-115) mg/dL Lactic Acid (0.5-2.0) mmol/L Calcium (8.4-10.2) mg/dL Total Bilirubin (0.0-1.0) mg/dL AST (5-37) U/L ALT (0-40) U/L Alkaline Phosphatase (39-117) U/L Total Protein (6.5-8.0) g/dL Albumin (3.5-5.0) g/dL Urine Color Urine Appearance Urine pH (5.0-8.0) Ur Specific [place] (1.005-1.025) Urine Protein (NEG-TRACE) MG/DL Urine Glucose (UA) (NEG) MG/DL Urine Ketones (NEG) MG/DL Urine Blood (NEG) Urine Nitrite (NEG) Ur Leukocyte Esterase (NEG) Urine RBC (0) /HPF Urine WBC (0-4) /HPF Ur Squamous Epith Cells /LPF Urine Bacteria /LPF SARS-CoV-2 (PCR) Cancelled Influenza Type A (PCR) (Negative) Influenza Type B (PCR) (Negative) RSV RNA Qual (PCR) (Negative) SARS-CoV-2 RNA (RT-PCR) (Negative) 08/18/21 08/18/21 08/18/21 Range/Units 10:12 10:12 10:26 WBC (4.8-10.8) X10*3/uL RBC (4.60-5.80) X10*6/uL Hgb (14.0-18.0) g/dl Hct (42.0-52.0) % MCV (80.0-98.0) fL MCH (27.0-33.0) pg MCHC (31.0-36.0) g/dl RDW (11.0-16.0) % Plt Count (160-400) X10*3/uL MPV (9.4-12.4) fL Immature Gran % (Auto) (0.0-0.4) % Neut % (Auto) (45-73) % Lymph % (Auto) (20-40) % [place] % (Auto) (2-11) % Eos % (Auto) (0-4) % Baso % (Auto) (0-2) % Lymph # (Auto) (1.2-4.9) X10*3/uL [place] # (Auto) (0.1-1.2) X10*3/uL Eos # (Auto) (0.0-0.4) X10*3/uL Baso # (Auto) (0.0-0.2) X10*3/uL Abs Immat Gran (auto) (0.00-0.03) X10*3/uL Absolute Neuts (auto) (2.0-8.3) x10*3/uL Absolute Nucleated RBC (0.0-0.012) X10*3/uL Nucleated RBC % (auto) (0.0-0.2) /100WBC PT 16.0 H (9.9-13.0) SEC INR 1.4 H (0.9-1.1) Sodium 134 L (135-145) mmol/L Potassium 3.5 (3.3-5.1) mmol/L Chloride 94 L (96-108) mmol/L Carbon Dioxide 32 H (22-29) mmol/L Anion Gap 12 (12-20) BUN 108 H (9-16) mg/dL Creatinine 3.20 H (0.5-1.4) mg/dL Estim Creat Clear Calc 31.2 Estimated GFR 20 POC Glucose (60-115) mg/dL Random Glucose 185 H D (60-115) mg/dL Lactic Acid (0.5-2.0) mmol/L Calcium 7.9 L (8.4-10.2) mg/dL Total Bilirubin 1.2 H (0.0-1.0) mg/dL AST 32 (5-37) U/L ALT 20 (0-40) U/L Alkaline Phosphatase 174 H (39-117) U/L Total Protein 6.0 L (6.5-8.0) g/dL Albumin 2.2 L (3.5-5.0) g/dL Urine Color Urine Appearance Urine pH (5.0-8.0) Ur Specific [place] (1.005-1.025) Urine Protein (NEG-TRACE) MG/DL Urine Glucose (UA) (NEG) MG/DL Urine Ketones (NEG) MG/DL Urine Blood (NEG) Urine Nitrite (NEG) Ur Leukocyte Esterase (NEG) Urine RBC (0) /HPF Urine WBC (0-4) /HPF Ur Squamous Epith Cells /LPF Urine Bacteria /LPF SARS-CoV-2 (PCR) Influenza Type A (PCR) NEGATIVE (Negative) Influenza Type B (PCR) NEGATIVE (Negative) RSV RNA Qual (PCR) NEGATIVE (Negative) SARS-CoV-2 RNA (RT-PCR) POSITIVE A (Negative) 08/18/21 08/18/21 08/18/21 Range/Units 11:52 13:33 17:51 WBC (4.8-10.8) X10*3/uL RBC (4.60-5.80) X10*6/uL Hgb (14.0-18.0) g/dl Hct (42.0-52.0) % MCV (80.0-98.0) fL MCH (27.0-33.0) pg MCHC (31.0-36.0) g/dl RDW (11.0-16.0) % Plt Count (160-400) X10*3/uL MPV (9.4-12.4) fL Immature Gran % (Auto) (0.0-0.4) % Neut % (Auto) (45-73) % Lymph % (Auto) (20-40) % [place] % (Auto) (2-11) % Eos % (Auto) (0-4) % Baso % (Auto) (0-2) % Lymph # (Auto) (1.2-4.9) X10*3/uL [place] # (Auto) (0.1-1.2) X10*3/uL Eos # (Auto) (0.0-0.4) X10*3/uL Baso # (Auto) (0.0-0.2) X10*3/uL Abs Immat Gran (auto) (0.00-0.03) X10*3/uL Absolute Neuts (auto) (2.0-8.3) x10*3/uL Absolute Nucleated RBC (0.0-0.012) X10*3/uL Nucleated RBC % (auto) (0.0-0.2) /100WBC PT (9.9-13.0) SEC INR (0.9-1.1) Sodium (135-145) mmol/L Potassium (3.3-5.1) mmol/L Chloride (96-108) mmol/L Carbon Dioxide (22-29) mmol/L Anion Gap (12-20) BUN (9-16) mg/dL Creatinine (0.5-1.4) mg/dL Estim Creat Clear Calc Estimated GFR POC Glucose 126 H (60-115) mg/dL Random Glucose (60-115) mg/dL Lactic Acid 0.8 (0.5-2.0) mmol/L Calcium (8.4-10.2) mg/dL Total Bilirubin (0.0-1.0) mg/dL AST (5-37) U/L ALT (0-40) U/L Alkaline Phosphatase (39-117) U/L Total Protein (6.5-8.0) g/dL Albumin (3.5-5.0) g/dL Urine Color YELLOW Urine Appearance CLOUDY Urine pH 5.5 (5.0-8.0) Ur Specific [place] 1.010 (1.005-1.025) Urine Protein 1+ H (NEG-TRACE) MG/DL Urine Glucose (UA) NEG (NEG) MG/DL Urine Ketones NEG (NEG) MG/DL Urine Blood 3+ H (NEG) Urine Nitrite NEG (NEG) Ur Leukocyte Esterase 3+ H (NEG) Urine RBC 10-14 H (0) /HPF Urine WBC TNTC H (0-4) /HPF Ur Squamous Epith Cells 1+ /LPF Urine Bacteria 3+ /LPF SARS-CoV-2 (PCR) Influenza Type A (PCR) (Negative) Influenza Type B (PCR) (Negative) RSV RNA Qual (PCR) (Negative) SARS-CoV-2 RNA (RT-PCR) (Negative) 08/19/21 08/19/21 08/19/21 Range/Units 08:28 09:28 09:36 WBC (4.8-10.8) X10*3/uL RBC (4.60-5.80) X10*6/uL Hgb (14.0-18.0) g/dl Hct (42.0-52.0) % MCV (80.0-98.0) fL MCH (27.0-33.0) pg MCHC (31.0-36.0) g/dl RDW (11.0-16.0) % Plt Count (160-400) X10*3/uL MPV (9.4-12.4) fL Immature Gran % (Auto) (0.0-0.4) % Neut % (Auto) (45-73) % Lymph % (Auto) (20-40) % [place] % (Auto) (2-11) % Eos % (Auto) (0-4) % Baso % (Auto) (0-2) % Lymph # (Auto) (1.2-4.9) X10*3/uL [place] # (Auto) (0.1-1.2) X10*3/uL Eos # (Auto) (0.0-0.4) X10*3/uL Baso # (Auto) (0.0-0.2) X10*3/uL Abs Immat Gran (auto) (0.00-0.03) X10*3/uL Absolute Neuts (auto) (2.0-8.3) x10*3/uL Absolute Nucleated RBC (0.0-0.012) X10*3/uL Nucleated RBC % (auto) (0.0-0.2) /100WBC PT 15.6 H (9.9-13.0) SEC INR 1.4 H (0.9-1.1) Sodium 138 (135-145) mmol/L Potassium 3.1 L (3.3-5.1) mmol/L Chloride 98 (96-108) mmol/L Carbon Dioxide 31 H (22-29) mmol/L Anion Gap 12 (12-20) BUN 92 H (9-16) mg/dL Creatinine 2.47 H (0.5-1.4) mg/dL Estim Creat Clear Calc 40.4 Estimated GFR 27 POC Glucose 150 H (60-115) mg/dL Random Glucose 146 H (60-115) mg/dL Lactic Acid (0.5-2.0) mmol/L Calcium 8.0 L (8.4-10.2) mg/dL Total Bilirubin (0.0-1.0) mg/dL AST (5-37) U/L ALT (0-40) U/L Alkaline Phosphatase (39-117) U/L Total Protein (6.5-8.0) g/dL Albumin (3.5-5.0) g/dL Urine Color Urine Appearance Urine pH (5.0-8.0) Ur Specific [place] (1.005-1.025) Urine Protein (NEG-TRACE) MG/DL Urine Glucose (UA) (NEG) MG/DL Urine Ketones (NEG) MG/DL Urine Blood (NEG) Urine Nitrite (NEG) Ur Leukocyte Esterase (NEG) Urine RBC (0) /HPF Urine WBC (0-4) /HPF Ur Squamous Epith Cells /LPF Urine Bacteria /LPF SARS-CoV-2 (PCR) Influenza Type A (PCR) (Negative) Influenza Type B (PCR) (Negative) RSV RNA Qual (PCR) (Negative) SARS-CoV-2 RNA (RT-PCR) (Negative) 08/19/21 08/19/21 08/19/21 Range/Units 11:57 17:55 19:55 WBC (4.8-10.8) X10*3/uL RBC (4.60-5.80) X10*6/uL Hgb (14.0-18.0) g/dl Hct (42.0-52.0) % MCV (80.0-98.0) fL MCH (27.0-33.0) pg MCHC (31.0-36.0) g/dl RDW (11.0-16.0) % Plt Count (160-400) X10*3/uL MPV (9.4-12.4) fL Immature Gran % (Auto) (0.0-0.4) % Neut % (Auto) (45-73) % Lymph % (Auto) (20-40) % [place] % (Auto) (2-11) % Eos % (Auto) (0-4) % Baso % (Auto) (0-2) % Lymph # (Auto) (1.2-4.9) X10*3/uL [place] # (Auto) (0.1-1.2) X10*3/uL Eos # (Auto) (0.0-0.4) X10*3/uL Baso # (Auto) (0.0-0.2) X10*3/uL Abs Immat Gran (auto) (0.00-0.03) X10*3/uL Absolute Neuts (auto) (2.0-8.3) x10*3/uL Absolute Nucleated RBC (0.0-0.012) X10*3/uL Nucleated RBC % (auto) (0.0-0.2) /100WBC PT (9.9-13.0) SEC INR (0.9-1.1) Sodium (135-145) mmol/L Potassium (3.3-5.1) mmol/L Chloride (96-108) mmol/L Carbon Dioxide (22-29) mmol/L Anion Gap (12-20) BUN (9-16) mg/dL Creatinine (0.5-1.4) mg/dL Estim Creat Clear Calc Estimated GFR POC Glucose 125 H 191 H 191 H (60-115) mg/dL Random Glucose (60-115) mg/dL Lactic Acid (0.5-2.0) mmol/L Calcium (8.4-10.2) mg/dL Total Bilirubin (0.0-1.0) mg/dL AST (5-37) U/L ALT (0-40) U/L Alkaline Phosphatase (39-117) U/L Total Protein (6.5-8.0) g/dL Albumin (3.5-5.0) g/dL Urine Color Urine Appearance Urine pH (5.0-8.0) Ur Specific [place] (1.005-1.025) Urine Protein (NEG-TRACE) MG/DL Urine Glucose (UA) (NEG) MG/DL Urine Ketones (NEG) MG/DL Urine Blood (NEG) Urine Nitrite (NEG) Ur Leukocyte Esterase (NEG) Urine RBC (0) /HPF Urine WBC (0-4) /HPF Ur Squamous Epith Cells /LPF Urine Bacteria /LPF SARS-CoV-2 (PCR) Influenza Type A (PCR) (Negative) Influenza Type B (PCR) (Negative) RSV RNA Qual (PCR) (Negative) SARS-CoV-2 RNA (RT-PCR) (Negative) <BRENTON Baker - Last Filed: 08/18/21 16:23> Lab Results 08/18/21 08/18/21 08/18/21 Range/Units 09:34 09:47 10:12 WBC 11.7 H (4.8-10.8) X10*3/uL RBC 2.94 L (4.60-5.80) X10*6/uL Hgb 8.7 L (14.0-18.0) g/dl Hct 26.8 L (42.0-52.0) % MCV 91.2 (80.0-98.0) fL MCH 29.6 (27.0-33.0) pg MCHC 32.5 (31.0-36.0) g/dl RDW 18.0 H (11.0-16.0) % Plt Count 318 (160-400) X10*3/uL MPV 8.5 L (9.4-12.4) fL Immature Gran % (Auto) 0.6 H (0.0-0.4) % Neut % (Auto) 84.0 H (45-73) % Lymph % (Auto) 5.0 L (20-40) % [place] % (Auto) 8.7 (2-11) % Eos % (Auto) 1.4 (0-4) % Baso % (Auto) 0.3 (0-2) % Lymph # (Auto) 0.6 L (1.2-4.9) X10*3/uL [place] # (Auto) 1.0 (0.1-1.2) X10*3/uL Eos # (Auto) 0.2 (0.0-0.4) X10*3/uL Baso # (Auto) 0.0 (0.0-0.2) X10*3/uL Abs Immat Gran (auto) 0.07 H (0.00-0.03) X10*3/uL Absolute Neuts (auto) 9.9 H (2.0-8.3) x10*3/uL Absolute Nucleated RBC 0.000 (0.0-0.012) X10*3/uL Nucleated RBC % (auto) 0.0 (0.0-0.2) /100WBC PT (9.9-13.0) SEC INR (0.9-1.1) Sodium (135-145) mmol/L Potassium (3.3-5.1) mmol/L Chloride (96-108) mmol/L Carbon Dioxide (22-29) mmol/L Anion Gap (12-20) BUN (9-16) mg/dL Creatinine (0.5-1.4) mg/dL Estim Creat Clear Calc Estimated GFR POC Glucose 177 H (60-115) mg/dL Random Glucose (60-115) mg/dL Lactic Acid (0.5-2.0) mmol/L Calcium (8.4-10.2) mg/dL Total Bilirubin (0.0-1.0) mg/dL AST (5-37) U/L ALT (0-40) U/L Alkaline Phosphatase (39-117) U/L Total Protein (6.5-8.0) g/dL Albumin (3.5-5.0) g/dL Urine Color Urine Appearance Urine pH (5.0-8.0) Ur Specific [place] (1.005-1.025) Urine Protein (NEG-TRACE) MG/DL Urine Glucose (UA) (NEG) MG/DL Urine Ketones (NEG) MG/DL Urine Blood (NEG) Urine Nitrite (NEG) Ur Leukocyte Esterase (NEG) Urine RBC (0) /HPF Urine WBC (0-4) /HPF Ur Squamous Epith Cells /LPF Urine Bacteria /LPF SARS-CoV-2 (PCR) Cancelled Influenza Type A (PCR) (Negative) Influenza Type B (PCR) (Negative) RSV RNA Qual (PCR) (Negative) SARS-CoV-2 RNA (RT-PCR) (Negative) 08/18/21 08/18/21 08/18/21 Range/Units 10:12 10:12 10:26 WBC (4.8-10.8) X10*3/uL RBC (4.60-5.80) X10*6/uL Hgb (14.0-18.0) g/dl Hct (42.0-52.0) % MCV (80.0-98.0) fL MCH (27.0-33.0) pg MCHC (31.0-36.0) g/dl RDW (11.0-16.0) % Plt Count (160-400) X10*3/uL MPV (9.4-12.4) fL Immature Gran % (Auto) (0.0-0.4) % Neut % (Auto) (45-73) % Lymph % (Auto) (20-40) % [place] % (Auto) (2-11) % Eos % (Auto) (0-4) % Baso % (Auto) (0-2) % Lymph # (Auto) (1.2-4.9) X10*3/uL [place] # (Auto) (0.1-1.2) X10*3/uL Eos # (Auto) (0.0-0.4) X10*3/uL Baso # (Auto) (0.0-0.2) X10*3/uL Abs Immat Gran (auto) (0.00-0.03) X10*3/uL Absolute Neuts (auto) (2.0-8.3) x10*3/uL Absolute Nucleated RBC (0.0-0.012) X10*3/uL Nucleated RBC % (auto) (0.0-0.2) /100WBC PT 16.0 H (9.9-13.0) SEC INR 1.4 H (0.9-1.1) Sodium 134 L (135-145) mmol/L Potassium 3.5 (3.3-5.1) mmol/L Chloride 94 L (96-108) mmol/L Carbon Dioxide 32 H (22-29) mmol/L Anion Gap 12 (12-20) BUN 108 H (9-16) mg/dL Creatinine 3.20 H (0.5-1.4) mg/dL Estim Creat Clear Calc 31.2 Estimated GFR 20 POC Glucose (60-115) mg/dL Random Glucose 185 H D (60-115) mg/dL Lactic Acid (0.5-2.0) mmol/L Calcium 7.9 L (8.4-10.2) mg/dL Total Bilirubin 1.2 H (0.0-1.0) mg/dL AST 32 (5-37) U/L ALT 20 (0-40) U/L Alkaline Phosphatase 174 H (39-117) U/L Total Protein 6.0 L (6.5-8.0) g/dL Albumin 2.2 L (3.5-5.0) g/dL Urine Color Urine Appearance Urine pH (5.0-8.0) Ur Specific [place] (1.005-1.025) Urine Protein (NEG-TRACE) MG/DL Urine Glucose (UA) (NEG) MG/DL Urine Ketones (NEG) MG/DL Urine Blood (NEG) Urine Nitrite (NEG) Ur Leukocyte Esterase (NEG) Urine RBC (0) /HPF Urine WBC (0-4) /HPF Ur Squamous Epith Cells /LPF Urine Bacteria /LPF SARS-CoV-2 (PCR) Influenza Type A (PCR) NEGATIVE (Negative) Influenza Type B (PCR) NEGATIVE (Negative) RSV RNA Qual (PCR) NEGATIVE (Negative) SARS-CoV-2 RNA (RT-PCR) POSITIVE A (Negative) 08/18/21 08/18/21 08/18/21 Range/Units 11:52 13:33 17:51 WBC (4.8-10.8) X10*3/uL RBC (4.60-5.80) X10*6/uL Hgb (14.0-18.0) g/dl Hct (42.0-52.0) % MCV (80.0-98.0) fL MCH (27.0-33.0) pg MCHC (31.0-36.0) g/dl RDW (11.0-16.0) % Plt Count (160-400) X10*3/uL MPV (9.4-12.4) fL Immature Gran % (Auto) (0.0-0.4) % Neut % (Auto) (45-73) % Lymph % (Auto) (20-40) % [place] % (Auto) (2-11) % Eos % (Auto) (0-4) % Baso % (Auto) (0-2) % Lymph # (Auto) (1.2-4.9) X10*3/uL [place] # (Auto) (0.1-1.2) X10*3/uL Eos # (Auto) (0.0-0.4) X10*3/uL Baso # (Auto) (0.0-0.2) X10*3/uL Abs Immat Gran (auto) (0.00-0.03) X10*3/uL Absolute Neuts (auto) (2.0-8.3) x10*3/uL Absolute Nucleated RBC (0.0-0.012) X10*3/uL Nucleated RBC % (auto) (0.0-0.2) /100WBC PT (9.9-13.0) SEC INR (0.9-1.1) Sodium (135-145) mmol/L Potassium (3.3-5.1) mmol/L Chloride (96-108) mmol/L Carbon Dioxide (22-29) mmol/L Anion Gap (12-20) BUN (9-16) mg/dL Creatinine (0.5-1.4) mg/dL Estim Creat Clear Calc Estimated GFR POC Glucose 126 H (60-115) mg/dL Random Glucose (60-115) mg/dL Lactic Acid 0.8 (0.5-2.0) mmol/L Calcium (8.4-10.2) mg/dL Total Bilirubin (0.0-1.0) mg/dL AST (5-37) U/L ALT (0-40) U/L Alkaline Phosphatase (39-117) U/L Total Protein (6.5-8.0) g/dL Albumin (3.5-5.0) g/dL Urine Color YELLOW Urine Appearance CLOUDY Urine pH 5.5 (5.0-8.0) Ur Specific [place] 1.010 (1.005-1.025) Urine Protein 1+ H (NEG-TRACE) MG/DL Urine Glucose (UA) NEG (NEG) MG/DL Urine Ketones NEG (NEG) MG/DL Urine Blood 3+ H (NEG) Urine Nitrite NEG (NEG) Ur Leukocyte Esterase 3+ H (NEG) Urine RBC 10-14 H (0) /HPF Urine WBC TNTC H (0-4) /HPF Ur Squamous Epith Cells 1+ /LPF Urine Bacteria 3+ /LPF SARS-CoV-2 (PCR) Influenza Type A (PCR) (Negative) Influenza Type B (PCR) (Negative) RSV RNA Qual (PCR) (Negative) SARS-CoV-2 RNA (RT-PCR) (Negative) 08/19/21 08/19/21 08/19/21 Range/Units 08:28 09:28 09:36 WBC (4.8-10.8) X10*3/uL RBC (4.60-5.80) X10*6/uL Hgb (14.0-18.0) g/dl Hct (42.0-52.0) % MCV (80.0-98.0) fL MCH (27.0-33.0) pg MCHC (31.0-36.0) g/dl RDW (11.0-16.0) % Plt Count (160-400) X10*3/uL MPV (9.4-12.4) fL Immature Gran % (Auto) (0.0-0.4) % Neut % (Auto) (45-73) % Lymph % (Auto) (20-40) % [place] % (Auto) (2-11) % Eos % (Auto) (0-4) % Baso % (Auto) (0-2) % Lymph # (Auto) (1.2-4.9) X10*3/uL [place] # (Auto) (0.1-1.2) X10*3/uL Eos # (Auto) (0.0-0.4) X10*3/uL Baso # (Auto) (0.0-0.2) X10*3/uL Abs Immat Gran (auto) (0.00-0.03) X10*3/uL Absolute Neuts (auto) (2.0-8.3) x10*3/uL Absolute Nucleated RBC (0.0-0.012) X10*3/uL Nucleated RBC % (auto) (0.0-0.2) /100WBC PT 15.6 H (9.9-13.0) SEC INR 1.4 H (0.9-1.1) Sodium 138 (135-145) mmol/L Potassium 3.1 L (3.3-5.1) mmol/L Chloride 98 (96-108) mmol/L Carbon Dioxide 31 H (22-29) mmol/L Anion Gap 12 (12-20) BUN 92 H (9-16) mg/dL Creatinine 2.47 H (0.5-1.4) mg/dL Estim Creat Clear Calc 40.4 Estimated GFR 27 POC Glucose 150 H (60-115) mg/dL Random Glucose 146 H (60-115) mg/dL Lactic Acid (0.5-2.0) mmol/L Calcium 8.0 L (8.4-10.2) mg/dL Total Bilirubin (0.0-1.0) mg/dL AST (5-37) U/L ALT (0-40) U/L Alkaline Phosphatase (39-117) U/L Total Protein (6.5-8.0) g/dL Albumin (3.5-5.0) g/dL Urine Color Urine Appearance Urine pH (5.0-8.0) Ur Specific [place] (1.005-1.025) Urine Protein (NEG-TRACE) MG/DL Urine Glucose (UA) (NEG) MG/DL Urine Ketones (NEG) MG/DL Urine Blood (NEG) Urine Nitrite (NEG) Ur Leukocyte Esterase (NEG) Urine RBC (0) /HPF Urine WBC (0-4) /HPF Ur Squamous Epith Cells /LPF Urine Bacteria /LPF SARS-CoV-2 (PCR) Influenza Type A (PCR) (Negative) Influenza Type B (PCR) (Negative) RSV RNA Qual (PCR) (Negative) SARS-CoV-2 RNA (RT-PCR) (Negative) 08/19/21 08/19/21 08/19/21 Range/Units 11:57 17:55 19:55 WBC (4.8-10.8) X10*3/uL RBC (4.60-5.80) X10*6/uL Hgb (14.0-18.0) g/dl Hct (42.0-52.0) % MCV (80.0-98.0) fL MCH (27.0-33.0) pg MCHC (31.0-36.0) g/dl RDW (11.0-16.0) % Plt Count (160-400) X10*3/uL MPV (9.4-12.4) fL Immature Gran % (Auto) (0.0-0.4) % Neut % (Auto) (45-73) % Lymph % (Auto) (20-40) % [place] % (Auto) (2-11) % Eos % (Auto) (0-4) % Baso % (Auto) (0-2) % Lymph # (Auto) (1.2-4.9) X10*3/uL [place] # (Auto) (0.1-1.2) X10*3/uL Eos # (Auto) (0.0-0.4) X10*3/uL Baso # (Auto) (0.0-0.2) X10*3/uL Abs Immat Gran (auto) (0.00-0.03) X10*3/uL Absolute Neuts (auto) (2.0-8.3) x10*3/uL Absolute Nucleated RBC (0.0-0.012) X10*3/uL Nucleated RBC % (auto) (0.0-0.2) /100WBC PT (9.9-13.0) SEC INR (0.9-1.1) Sodium (135-145) mmol/L Potassium (3.3-5.1) mmol/L Chloride (96-108) mmol/L Carbon Dioxide (22-29) mmol/L Anion Gap (12-20) BUN (9-16) mg/dL Creatinine (0.5-1.4) mg/dL Estim Creat Clear Calc Estimated GFR POC Glucose 125 H 191 H 191 H (60-115) mg/dL Random Glucose (60-115) mg/dL Lactic Acid (0.5-2.0) mmol/L Calcium (8.4-10.2) mg/dL Total Bilirubin (0.0-1.0) mg/dL AST (5-37) U/L ALT (0-40) U/L Alkaline Phosphatase (39-117) U/L Total Protein (6.5-8.0) g/dL Albumin (3.5-5.0) g/dL Urine Color Urine Appearance Urine pH (5.0-8.0) Ur Specific [place] (1.005-1.025) Urine Protein (NEG-TRACE) MG/DL Urine Glucose (UA) (NEG) MG/DL Urine Ketones (NEG) MG/DL Urine Blood (NEG) Urine Nitrite (NEG) Ur Leukocyte Esterase (NEG) Urine RBC (0) /HPF Urine WBC (0-4) /HPF Ur Squamous Epith Cells /LPF Urine Bacteria /LPF SARS-CoV-2 (PCR) Influenza Type A (PCR) (Negative) Influenza Type B (PCR) (Negative) RSV RNA Qual (PCR) (Negative) SARS-CoV-2 RNA (RT-PCR) (Negative) <Larisa Yang MD - Last Filed: 08/19/21 20:29> Discharge Plan Discharge Clinical Impression: SARS-CoV-2 positive, Acute urinary retention, Hypoxia <BRENTON Baker - Last Filed: 08/18/21 16:23> Patient Disposition: Admitted As Inpatient <BRENTON Baker - Last Filed: 08/18/21 16:23>
--- NOTE | 2021-08-18 09:49 | ECG_ITS ---
Test Reason : urogenital Blood Pressure : / mmHG Vent. 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
[2021-08-18 10:16] LABS: MANUAL DIFF FLAG NO
[2021-08-18 10:19] LABS: Basophils Percent Auto 0.3 % (0-2); Eosinophils Absolute Auto 0.2 X10*3/uL (0.0-0.4); Eosinophils Percent Auto 1.4 % (0-4); Hematocrit 26.8 % (42.0-52.0); Hemoglobin 8.7 g/dl (14.0-18.0); Imm Gran Abs Auto 0.07 X10*3/uL (0.00-0.03); Imm Gran Pct Auto 0.6 % (0.0-0.4); Lymphocytes Absolute Auto 0.6 X10*3/uL (1.2-4.9); Mean Corpuscular HGB Conc 32.5 g/dl (31.0-36.0); Mean Corpuscular Hemoglobin 29.6 pg (27.0-33.0); Mean Corpuscular Volume 91.2 fL (80.0-98.0); Mean Platelet Volume 8.5 fL (9.4-12.4); Monocytes Percent Auto 8.7 % (2-11); Neutrophils Absolute Auto 9.9 x10*3/uL (2.0-8.3); Platelet Count 318 X10*3/uL (160-400); Red Blood Count 2.94 X10*6/uL (4.60-5.80); White Blood Count 11.7 X10*3/uL (4.8-10.8)
[2021-08-18 10:24] LABS: INTERNATIONAL NORM RATIO 1.4 (0.9-1.1)
[2021-08-18 10:40] LABS: Alanine Aminotransferase 20 U/L (0-40); Albumin Level 2.2 g/dL (3.5-5.0); Alkaline Phosphatase 174 U/L (39-117); Anion Gap 12 (12-20); Aspartate Amino Transferase 32 U/L (5-37); Bilirubin Total 1.2 mg/dL (0.0-1.0); Blood Urea Nitrogen 108 mg/dL (9-16); Calcium 7.9 mg/dL (8.4-10.2); Carbon Dioxide 32 mmol/L (22-29); Chloride 94 mmol/L (96-108); Creatinine Clr Calc Pharmacy 31.2; Estimated Glomerular Filt Rate 20; Glucose Random 185 mg/dL (60-115); Potassium 3.5 mmol/L (3.3-5.1); Sodium 134 mmol/L (135-145)
[2021-08-18] MEDS: Acetaminophen 325 MG TABLET 650 MG PO (10:59)
[2021-08-18 11:34] LABS: Influenza A PCR NEGATIVE (Negative); Influenza B PCR NEGATIVE (Negative); Resp Syncy Virus RNA Qual PCR NEGATIVE (Negative); SARS COV2 PCR INHOUSE POSITIVE (Negative)
--- NOTE | 2021-08-18 11:45 | PC.NURSE ---
this nurse took over for ellie DURAN, patient currently a&ox3, vitals previously stable, mcknight replaced with 22F 3way cath, continuous bladder began, pt tolerated well, no clots noted upon starting continuous bladder, call wagner within reach, will continue to monitor.
[2021-08-18 11:49] VITALS: BP 108/59; PULSE 65; RESP 14; O2SAT 99
--- NOTE | 2021-08-18 12:09 | MHC.CM.ED ---
Received case management consult from Prema FARRIS. Patient was d/c'd home from [facility] [place] on 08[place]. Short term rehab was recomended at that time. Patient declined and went home with Wilton KELSEY. Patient fell at home. Patient returned to the ER with the intention of going to [facility] [place]Note 2[place] for short term rehab. Patient received Pfizer vaccines on 08/19, 09/10 and 04/23. PCP is Tawana Bowen. No HCP found to be on file. Per Ace, he is not sure were HCP is. New HCP may need to be done. Patient uses Cpap at home. Patient found to be positive for covid with increasing WBCs and worsening kidney functioning. Patient will be admitted to the hospital. Ace made aware via telephone at [phone]. [facility] [place] will follow to see if they can offer a bed when patient is Covid recovered. Continue to monitor for d/c needs.
[2021-08-18 12:19] LABS: Appearance Urine CLOUDY; Color Urine YELLOW; Glucose Urine UA NEG (NEG); Leukocyte Esterase Urine 3+ (NEG); Nitrite Urine NEG (NEG); PH 5.5 (5.0-8.0); UACC Culture Trigger YES; Urine Blood 3+ (NEG); Urine Ketones NEG (NEG); Urine Protein 1+ MG/DL (NEG-TRACE)
[2021-08-18 12:53] LABS: WBC Urine TNTC /HPF (0-4)
[2021-08-18 12:55] LABS: Bacteria Urine 3+ /LPF; Squamous Epithelial Cell Urine 1+ /LPF
[2021-08-18 13:05] VITALS: BP 107/61; PULSE 74; RESP 15; TEMP 37; O2SAT 98
--- NOTE | 2021-08-18 13:44 | PC.NURSE ---
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
[2021-08-18] MEDS: cefTRIAXone sodium 1 GM in 0.9 % Sodium Chloride 50 ML IV (13:49)
[2021-08-18 13:50] VITALS: BP 112/72; PULSE 70; RESP 18; TEMP 36.9; O2SAT 99
[2021-08-18 13:54] LABS: Lactic Acid 0.8 mmol/L (0.5-2.0)
--- NOTE | 2021-08-18 14:59 | PHA.MEDREC ---
Pharmacy Consult ? Medication Reconciliation Pharmacy has completed the medication reconciliation. Completed med rec based on dc summary and spoke to pt to confirm if he took his medications today. Per dc summary, warfarin on hold until 08/24
[2021-08-18 17:53] VITALS: BP 113/69; PULSE 58; RESP 16; TEMP 36.4; O2SAT 100
[2021-08-18 18:02] LABS: Glucose, Whole Blood 126 mg/dL (60-115)
[2021-08-18 20:45] VITALS: BP 113/60; PULSE 65; RESP 16; TEMP 36.7; O2SAT 95
[2021-08-19] VITALS (10 sets, daily range): BP systolic 105–135; BP diastolic 54–92; PULSE 60–76; RESP 12–19; TEMP 36.5–36.6; O2SAT 97–100
--- NOTE | 2021-08-19 00:49 | PC.NURSE ---
Patient alert and oriented x 3. Patient c/o pain from being on wound on coccyx on stretcher. requested hospital bed and checked his wound. applied epc cream to anus and exposed areas. Patient has irrigation mcknight but irrigation has ended before 3pm. urine output moderate and clear yellow urine. Patient awaiting case management for admission to rehab. Will continue to monitor.
[2021-08-19 08:52] LABS: Anion Gap 12 (12-20); Blood Urea Nitrogen 92 mg/dL (9-16); Carbon Dioxide 31 mmol/L (22-29); Chloride 98 mmol/L (96-108); Creatinine Clr Calc Pharmacy 40.4; Estimated Glomerular Filt Rate 27; Glucose Random 146 mg/dL (60-115); Potassium 3.1 mmol/L (3.3-5.1); Sodium 138 mmol/L (135-145)
--- NOTE | 2021-08-19 08:54 | MHC.CM.ED ---
Patient remains in ER. Hospitalist does not feel admission is appropriate. Referral for short term rehab is being broadcasted in [employer] to all facilities contracted with patient's insurance and accepting positive covid patients. Continue to monitor for d/c needs.
[2021-08-19 09:39] LABS: Glucose, Whole Blood 150 mg/dL (60-115)
[2021-08-19 09:44] LABS: INTERNATIONAL NORM RATIO 1.4 (0.9-1.1); Prothrombin Time 15.6 SEC (9.9-13.0)
[2021-08-19] MEDS: Omeprazole 40 MG CAPSULE.DR PO (10:17)
[2021-08-19] MEDS: Atorvastatin Calcium 80 MG TABLET PO (10:17)
[2021-08-19] MEDS: Torsemide 20 MG TABLET 100 MG PO ×2 (10:17→23:10)
[2021-08-19] MEDS: metOLazone 5 MG TABLET PO (10:17)
[2021-08-19] MEDS: Potassium Chloride ER 20 MEQ TAB.ER.PRT 40 MEQ PO ×2 (10:17→23:11)
[2021-08-19] MEDS: Amitriptyline HCl 50 MG TABLET PO (10:17)
[2021-08-19] MEDS: Ascorbic Acid 500 MG TABLET PO (10:17)
[2021-08-19] MEDS: hydrALAZINE HCl 25 MG TABLET PO ×3 (10:18→23:11)
[2021-08-19] MEDS: Metoprolol Succinate ER 25 MG TAB.ER.24H PO (10:18)
[2021-08-19] MEDS: Isosorbide Mononitrate 60 MG TAB.ER.24H PO (10:18)
[2021-08-19 12:01] LABS: Glucose, Whole Blood 125 mg/dL (60-115)
[2021-08-19 17:59] LABS: Glucose, Whole Blood 191 mg/dL (60-115)
--- NOTE | 2021-08-19 18:05 | ECG_ITS ---
Test Reason : FALL Blood Pressure : / mmHG Vent. 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
--- NOTE | 2021-08-19 18:34 | PC.NURSE ---
At approx 1745, pt's bed alarm was going off while I was in a room behind a closed door, tech was off unit. Pt was found to be on the floor lying on his stomach, he had gotten out of bed and fell, hit head on garbage can and landed on R side of body. Pt is a case management ED patient, laborer salvage made aware, help sent to lift assist, VS as charted, pt on 2L NC and O2 sat found to be in the mid 70's, placed on 4L with an O2 sat of 85%, per ED MD orders, placed on venti mask, 4L O2 now in the low 90's. MD ordered Ct scan as well as CXR. Aware pt is on blood thinners. Call wagner within reach, bed alarm on. Will continue to monitor.
[2021-08-19 19:59] LABS: Glucose, Whole Blood 191 mg/dL (60-115)
--- NOTE | 2021-08-19 20:15 | PC.NURSE ---
Assumed care of pt at 1900. Pt s/p mechanical fall per previous RN. Vitals as charted. Pt previously AOx4, now disoriented to place and situation. Endorsing HAMILTON. Vitals as charted. 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 EKG and labs complete at this time. Plan to admit pt d/t new O2 requirement. Pt to be transferred to main ED for increased observation until admitted
[2021-08-19 20:32] LABS: MANUAL DIFF FLAG NO
[2021-08-19 20:34] LABS: Basophils Percent Auto 0.2 % (0-2); Eosinophils Absolute Auto 0.1 X10*3/uL (0.0-0.4); Eosinophils Percent Auto 0.8 % (0-4); Hematocrit 31.3 % (42.0-52.0); Hemoglobin 10.2 g/dl (14.0-18.0); Imm Gran Abs Auto 0.16 X10*3/uL (0.00-0.03); Imm Gran Pct Auto 1.2 % (0.0-0.4); Lymphocytes Absolute Auto 0.5 X10*3/uL (1.2-4.9); Lymphocytes Percent Auto 3.9 % (20-40); Mean Corpuscular HGB Conc 32.6 g/dl (31.0-36.0); Mean Corpuscular Hemoglobin 29.7 pg (27.0-33.0); Mean Corpuscular Volume 91.3 fL (80.0-98.0); Mean Platelet Volume 8.9 fL (9.4-12.4); Monocytes Absolute Auto 0.8 X10*3/uL (0.1-1.2); Monocytes Percent Auto 6.1 % (2-11); Neutrophils Absolute Auto 11.4 x10*3/uL (2.0-8.3); Neutrophils Percent Auto 87.8 % (45-73); Platelet Count 337 X10*3/uL (160-400); Red Blood Count 3.43 X10*6/uL (4.60-5.80); Red Cell Distribution Width 18.1 % (11.0-16.0)
[2021-08-19 20:56] LABS: Alanine Aminotransferase 22 U/L (0-40); Albumin Level 2.4 g/dL (3.5-5.0); Alkaline Phosphatase 186 U/L (39-117); Anion Gap 12 (12-20); Aspartate Amino Transferase 42 U/L (5-37); Bilirubin Direct 0.8 mg/dL (0.0-0.5); Bilirubin Total 1.3 mg/dL (0.0-1.0); Blood Urea Nitrogen 84 mg/dL (9-16); Calcium 8.2 mg/dL (8.4-10.2); Carbon Dioxide 32 mmol/L (22-29); Chloride 97 mmol/L (96-108); Estimated Glomerular Filt Rate 30; Glucose Random 192 mg/dL (60-115); Potassium 3.1 mmol/L (3.3-5.1); Sodium 138 mmol/L (135-145); Total Protein 6.6 g/dL (6.5-8.0); Troponin-I High Sensitivity 25.1 ng/L (<3.5-35.0)
--- NOTE | 2021-08-19 22:12 | PM.IMHP ---
History of Present Illness Date of Service: 08/19/21 Chief Complaint: COVID positive 61-year-old male with a past medical history of hypertension, hyperlipidemia, diabetes, CHF(EF-30%) with CardioMEMS device in place severe pulmonary hypertension, chronic hypoxic respiratory failure on 2 L of home oxygen at baseline, atrial fibrillation on Coumadin, CKD, history of CVA, polycythemia vera, CVA with no residual deficits, recent prolonged admission to the hospital for acute on chronic CHF, CVA, anemia, hematuria; discharged on 08/17/2021; presented back to the hospital with a chief complaint of Camilo not draining on 08/18/2021; otherwise denied any chest pain or palpitations. Patient's COVID-19 was positive. Exam was benign per ER team vitals were stable; upon evaluation patient was noted to are 300 cc urinary retention no blood clots; noted to have UTI-growing E coli-receiving cefuroxime; blood cultures negative so far; Followed by today patient had a fall in the ER while waiting to be placed in the rehab; patient reports he fell on the ground, hit his head; complains of headaches; denies any neck pain back pain. Reports he has pain in his legs. Denies any numbness or tingling. Denies any fever chills and cough. Patient at that time was also noted to be saturating 80s on room air; not in respiratory distress; placed on supplemental oxygen via nasal cannula and transitioned to Ventimask; oxygenation improved; CT chest was done which showed no acute cardiopulmonary process except for elective assess; CT head was done which showed no evidence of acute intracranial process. Given the patient is COVID positive, received Decadron. Admitted to the hospital for further management. [facility] Medical History Anasarca Atrial fibrillation CAD (coronary artery disease) Cataract Cholecystectomy planned Chronic combined systolic and diastolic congestive heart failure Chronic respiratory failure CKD (chronic kidney disease) stage 3, GFR 30-59 ml/min CVA (cerebral vascular accident) Diabetes Gross hematuria Heart attack HTN (hypertension) Hyperlipidemia Neuropathy DARLENE on CPAP Permanent atrial fibrillation Polycythemia vera Pulmonary hypertension Toe amputee Urinary retention with incomplete bladder emptying Family History Father Diabetes Hx of cancer antigen 125 (CA-125) measurement Mother Diabetes Brother Diabetes Hx of cancer antigen 125 (CA-125) measurement Surgical History History of cholecystectomy Social History Household Members: Other Household Members Other:: 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 Housing: House Do you presently have visiting nurse or other home services: No Alcohol intake: former Patient Tobacco Use Status: Never used Tobacco Use of substances other than those prescribed or required for medical reasons: No Advance Directives: No Advance Directives Information Provided: No service: No Current occupational status: disabled Meds Allergies Allergy/AdvReac Type Severity Reaction Status Date / Time No Known Allergies Allergy Unknown NKDA Verified 08/18/21 13:21 Active Medications: Current Medications Acetaminophen (Acetaminophen 325 Mg Tablet) 650 mg PO Q6H PRN PRN Reason: Pain, Mild (Pain Scale 1-3) Amitriptyline HCl (Amitriptyline Hcl 50 Mg Tablet) 50 mg PO DAILY [facility] Last Admin: 08/19/21 10:17 Dose: 50 mg Documented by: Amitriptyline HCl (Amitriptyline Hcl 50 Mg Tablet) 150 mg PO BEDTIME [facility] Ascorbic Acid (Ascorbic Acid 500 Mg Tablet) 500 mg PO DAILY [facility] Last Admin: 08/19/21 10:17 Dose: 500 mg Documented by: Atorvastatin Calcium (Atorvastatin Calcium 80 Mg Tablet) 80 mg PO DAILY [facility] Last Admin: 08/19/21 10:17 Dose: 80 mg Documented by: Cefuroxime Axetil (Cefuroxime Axetil 250 Mg Tablet) 250 mg PO Q12H [facility] Stop: 08/26/21 07:59 Last Admin: 08/19/21 08:23 Dose: 250 mg Documented by: Dexamethasone (Dexamethasone 6 Mg Tablet) 6 mg PO DAILY [facility] Dextrose (Dextrose 50 % 25 Gm/50 Ml Syringe) 25 gm IVPUSH Q15M PRN; Protocol PRN Reason: per Hypoglycemia Standing Ord. Glucose (Glucose Gel 15 Gm Gel..Gram.) 15 gm PO Q15M PRN; Protocol PRN Reason: per Hypoglycemia Standing Ord. Hydralazine HCl (Hydralazine Hcl 25 Mg Tablet) 25 mg PO TID [facility]; Protocol Last Admin: 08/19/21 15:44 Dose: 25 mg Documented by: Insulin Human Lispro (Insulin Lispro 100 Unit/Ml 3 Ml Vial) 0 unit SUBCUT QIDACHS [facility]; Protocol Last Admin: 08/19/21 20:29 Dose: Not Given Documented by: Isosorbide Mononitrate (Isosorbide Mononitrate 60 Mg Tab.Er.24h) 60 mg PO DAILY [facility]; Protocol Last Admin: 08/19/21 10:18 Dose: 60 mg Documented by: Melatonin (Melatonin 3 Mg Tablet) 6 mg PO BEDTIME PRN PRN Reason: Insomnia Metolazone (Metolazone 5 Mg Tablet) 5 mg PO DAILY [facility] Last Admin: 08/19/21 10:17 Dose: 5 mg Documented by: Metoprolol Succinate (Metoprolol Succinate Er 25 Mg Tab.Er.24h) 25 mg PO DAILY [facility]; Protocol Last Admin: 08/19/21 10:18 Dose: 25 mg Documented by: Omeprazole (Omeprazole 40 Mg Capsule.Dr) 40 mg PO DAILY@0630 [facility] Last Admin: 08/19/21 10:17 Dose: 40 mg Documented by: Pharmacy Consult (Consult Rx Perform Med Rec) 1 each MISCELLANE ONCE PRN PRN Reason: Consult order Pharmacy Consult (Consult Rx Perform Med Rec) 1 each MISCELLANE ONCE PRN PRN Reason: Consult order Potassium Chloride (Potassium Chloride Er 20 Meq Tab.Er.Prt) 40 meq PO BID [facility] Last Admin: 08/19/21 10:17 Dose: 40 meq Documented by: Senna (Sennosides 8.6 Mg Tablet) 17.2 mg PO BEDTIME PRN PRN Reason: Constipation Sodium Chloride (0.9 % Sodium Chloride Flush 3 Ml Syringe) 3 ml IVFLUSH QSHIFT [facility] Torsemide (Torsemide 20 Mg Tablet) 100 mg PO BID [facility]; Protocol Last Admin: 08/19/21 10:17 Dose: 100 mg Documented by: Warfarin Sodium (Warfarin Sodium 2.5 Mg Tablet) 2.5 mg PO MoTuWeThFrSa@1800 [facility] Warfarin Sodium (Warfarin Sodium 5 Mg Tablet) 5 mg PO Lu@1800 [facility] Home Medications Medication Instructions Recorded Confirmed Last Taken Type amitriptyline 50 mg tablet 1 tab PO DAILY 05/08/20 08/18/21 08/18/21 History atorvastatin 80 mg tablet 1 tab PO DAILY 05/08/20 08/18/21 08/18/21 History dulaglutide 1.5 mg/0.5 mL 1 mg SUBCUT QWEEK 05/08/20 08/18/21 05/03/20 History subcutaneous pen injector (Trulicity) insulin regular hum U-500 conc 500 20 unit SUBCUT QAM 05/08/20 08/18/21 08/18/21 History unit/mL subcutaneous soln (Humulin R U-500 (Concentrated) Insulin) metoprolol succinate 25 mg 1 tab PO DAILY 05/08/20 08/18/21 08/18/21 History tablet,extended release 24 hr warfarin 2.5 mg tablet 2 tab PO LU 05/08/20 08/18/21 05/07/20 History amitriptyline 50 mg tablet 150 mg PO BEDTIME 07/17/21 08/18/21 08/17/21 History ascorbic acid (vitamin C) 500 mg 500 mg PO DAILY 07/17/21 08/18/21 08/18/21 History tablet hydralazine 25 mg tablet 1 tab PO TID 07/17/21 08/18/21 08/18/21 History insulin regular hum U-500 conc 500 10 unit SUBCUT BEDTIME 07/17/21 08/18/21 08/17/21 History unit/mL subcutaneous soln (Humulin R U-500 (Concentrated) Insulin) isosorbide mononitrate 60 mg 1 tab PO DAILY 07/17/21 08/18/21 08/18/21 History tablet,extended release 24 hr metolazone 5 mg tablet 1 tab PO DAILY 07/17/21 08/18/21 08/18/21 History torsemide 100 mg tablet 1 tab PO BID 07/17/21 08/18/21 08/18/21 History warfarin 2.5 mg tablet 1 tab PO MOTUWETHFRSA 07/17/21 08/18/21 Unknown History Physical Exam Vital Signs and Narrative: Vital Signs: Last Vital Signs Temp 97.8 F 08/19/21 16:00 Pulse 72 08/19/21 20:14 Resp 19 08/19/21 20:14 BP 134/78 08/19/21 20:14 Pulse Ox 99 08/19/21 20:14 Oxygen Flow Rate 2 08/18/21 09:23 BMI result Body Mass Index 33.5 Gen: Appears be in no acute distress. On supplemental oxygen. Speaks in full sentences. HEENT: NCAT, Moist mucosa. Pulmonary: Vesicular breath sounds, fair air entry CVS: Normal S1-S2 Abdomen: BS+, Soft, Nontender; Camilo bag has clear urine Extremities: Warm well perfused Neuro: Alert and awake. Results Labs CBC and Chem 7: 08/19/21 20:14 08/19/21 20:14 Labs: Laboratory Results - last 24 hr 08/19/21 08/19/21 08/19/21 08:28 09:28 09:36 MCV MCH MCHC RDW Plt Count MPV Immature Gran % (Auto) Neut % (Auto) Lymph % (Auto) Morrison % (Auto) Eos % (Auto) Baso % (Auto) Lymph # (Auto) Morrison # (Auto) Eos # (Auto) Baso # (Auto) Abs Immat Gran (auto) Absolute Neuts (auto) Absolute Nucleated RBC Nucleated RBC % (auto) PT 15.6 H INR 1.4 H Anion Gap 12 Estim Creat Clear Calc 40.4 Estimated GFR 27 POC Glucose 150 H Random Glucose 146 H Calcium 8.0 L Total Bilirubin Direct Bilirubin AST ALT Alkaline Phosphatase Total Protein Albumin 08/19/21 08/19/21 08/19/21 11:57 17:55 19:55 MCV MCH MCHC RDW Plt Count MPV Immature Gran % (Auto) Neut % (Auto) Lymph % (Auto) Morrison % (Auto) Eos % (Auto) Baso % (Auto) Lymph # (Auto) Morrison # (Auto) Eos # (Auto) Baso # (Auto) Abs Immat Gran (auto) Absolute Neuts (auto) Absolute Nucleated RBC Nucleated RBC % (auto) PT INR Anion Gap Estim Creat Clear Calc Estimated GFR POC Glucose 125 H 191 H 191 H Random Glucose Calcium Total Bilirubin Direct Bilirubin AST ALT Alkaline Phosphatase Total Protein Albumin 08/19/21 08/19/21 20:14 20:14 MCV 91.3 MCH 29.7 MCHC 32.6 RDW 18.1 H Plt Count 337 MPV 8.9 L Immature Gran % (Auto) 1.2 H Neut % (Auto) 87.8 H Lymph % (Auto) 3.9 L Morrison % (Auto) 6.1 Eos % (Auto) 0.8 Baso % (Auto) 0.2 Lymph # (Auto) 0.5 L Morrison # (Auto) 0.8 Eos # (Auto) 0.1 Baso # (Auto) 0.0 Abs Immat Gran (auto) 0.16 H Absolute Neuts (auto) 11.4 H Absolute Nucleated RBC 0.000 Nucleated RBC % (auto) 0.0 PT INR Anion Gap 12 Estim Creat Clear Calc 44.0 Estimated GFR 30 POC Glucose Random Glucose 192 H Calcium 8.2 L Total Bilirubin 1.3 H Direct Bilirubin 0.8 H AST 42 H ALT 22 Alkaline Phosphatase 186 H Total Protein 6.6 Albumin 2.4 L Imaging Radiologist's Impressions: Impressions Chest CT 08/19/21 19:44 IMPRESSION: Left external lobe encephalomalacia from old insult. No acute intracranial process seen. There are bilateral small pleural effusions with underlying left lower lobe compressive atelectasis. Reactive lymph nodes in the mediastinum. Mild cardiomegaly. Head CT 08/19/21 19:44 IMPRESSION: Left external lobe encephalomalacia from old insult. No acute intracranial process seen. There are bilateral small pleural effusions with underlying left lower lobe compressive atelectasis. Reactive lymph nodes in the mediastinum. Mild cardiomegaly. Assessment and Plan (1) SARS-CoV-2 positive: Status: Acute (2) Acute urinary retention: Status: Acute Plan 61-year-old male with a past medical history of hypertension, hyperlipidemia, diabetes, CHF(EF-30%) with CardioMEMS device in place severe pulmonary hypertension, chronic hypoxic respiratory failure on 2 L of home oxygen at baseline, atrial fibrillation on Coumadin, CKD, history of CVA, polycythemia vera, CVA with no residual deficits, recent prolonged admission to the hospital for acute on chronic CHF, CVA, anemia, hematuria; discharged on 08/17/2021; presented back to the hospital with a chief complaint of Camilo not draining on 08/18/2021; noted to have UTI/COVID-19 positive/hypoxia. Also had fall in the ER. Admitted for further management. Fall: Mechanical in nature. Denies any loss of consciousness. Exam grossly nonfocal. CT head showed no acute intracranial process. Reports pain on bilateral hips with hip flexion; will obtain pelvis CT Fall precautions PT/OT eventually Acute hypoxia/ COVID-19 positive: Patient has chronic hypoxic respiratory failure on 2 L of supplemental oxygen. Currently has higher oxygen requirements. Patient was placed on Ventimask in the ER. Does not appear to be in distress. Will try to titrate down as tolerated. CT chest showed no acute cardiopulmonary process except for atelectasis. Continue Decadron Id consult UTI: Growing E coli. Sensitive to cephalosporins. Continue cefuroxime. Urinary retention: Currently Camilo has been draining. Noted clear urine in the bag. History of CKD: Creatinine at baseline History of diabetes: Insulin sliding scale History of CHF: Stable. Continue home medications History of AFib: Continue home Coumadin. Follow-up INR DVT prophylaxis: Patient on Coumadin Code status: Full code Quality Stroke Does the patient have a stroke diagnosis?: No VTE Prior VTE?: No VTE Risk Level:: Medical - moderate - high VTE Device Contraindication: Treatment Not Indicated VTE Drug Contraindication: N/A - Med Ordered
[2021-08-19 22:26] LABS: Glucose, Whole Blood 170 mg/dL (60-115)
[2021-08-19] MEDS: Insulin Lispro 100 UNIT/ML 3 ML VIAL SUBCUT (23:12)
[2021-08-19] MEDS: Amitriptyline HCl 50 MG TABLET 150 MG PO (23:12)
[2021-08-20] VITALS (10 sets, daily range): BP systolic 100–138; BP diastolic 59–87; PULSE 64–94; RESP 12–21; TEMP 36.5–37.3; O2SAT 92–100
--- NOTE | 2021-08-20 04:17 | PC.NURSE ---
PATIENT RESTING QUIETLY ON BED, NO DISTRESS NOTED AT THIS TIME. AWAITING BED ASSIGNMENT
[2021-08-20 07:09] LABS: MANUAL DIFF FLAG NO
[2021-08-20 07:11] LABS: Basophils Percent Auto 0.3 % (0-2); Eosinophils Absolute Auto 0.1 X10*3/uL (0.0-0.4); Eosinophils Percent Auto 0.9 % (0-4); Hematocrit 31.6 % (42.0-52.0); Hemoglobin 10.1 g/dl (14.0-18.0); Imm Gran Abs Auto 0.07 X10*3/uL (0.00-0.03); Imm Gran Pct Auto 0.5 % (0.0-0.4); Lymphocytes Absolute Auto 0.7 X10*3/uL (1.2-4.9); Lymphocytes Percent Auto 4.8 % (20-40); Mean Corpuscular Hemoglobin 29.6 pg (27.0-33.0); Mean Corpuscular Volume 92.7 fL (80.0-98.0); Mean Platelet Volume 8.8 fL (9.4-12.4); Monocytes Absolute Auto 1.2 X10*3/uL (0.1-1.2); Monocytes Percent Auto 8.1 % (2-11); Neutrophils Absolute Auto 12.4 x10*3/uL (2.0-8.3); Neutrophils Percent Auto 85.4 % (45-73); Platelet Count 350 X10*3/uL (160-400); Red Blood Count 3.41 X10*6/uL (4.60-5.80); Red Cell Distribution Width 18.1 % (11.0-16.0); White Blood Count 14.5 X10*3/uL (4.8-10.8)
[2021-08-20 07:18] LABS: INTERNATIONAL NORM RATIO 1.4 (0.9-1.1); Prothrombin Time 15.5 SEC (9.9-13.0)
[2021-08-20 07:39] LABS: Glucose, Whole Blood 149 mg/dL (60-115)
[2021-08-20 07:45] LABS: Anion Gap 17 (12-20); Blood Urea Nitrogen 81 mg/dL (9-16); Calcium 8.5 mg/dL (8.4-10.2); Carbon Dioxide 30 mmol/L (22-29); Chloride 97 mmol/L (96-108); Estimated Glomerular Filt Rate 30; Glucose Random 150 mg/dL (60-115); Potassium 3.5 mmol/L (3.3-5.1); Sodium 140 mmol/L (135-145)
[2021-08-20] MEDS: Acetaminophen 325 MG TABLET 650 MG PO (08:10)
[2021-08-20] MEDS: hydrALAZINE HCl 25 MG TABLET PO ×2 (08:10→21:07)
[2021-08-20] MEDS: Potassium Chloride ER 20 MEQ TAB.ER.PRT 40 MEQ PO ×2 (08:10→21:07)
[2021-08-20] MEDS: Atorvastatin Calcium 80 MG TABLET PO (08:10)
[2021-08-20] MEDS: Metoprolol Succinate ER 25 MG TAB.ER.24H PO (08:11)
[2021-08-20] MEDS: Ascorbic Acid 500 MG TABLET PO (08:11)
[2021-08-20] MEDS: Omeprazole 40 MG CAPSULE.DR PO (08:11)
[2021-08-20] MEDS: Isosorbide Mononitrate 60 MG TAB.ER.24H PO (08:11)
--- NOTE | 2021-08-20 08:25 | PC.NURSE ---
Pt resting in hospital bed. Pt disoriented to situation and place. Reoriented by this RN. RN repositioned pt with ax1 in the bed. 1200cc pink/tea colored urine drained from his mcknight. VSS at this time. Pt remains on 4L O2. Medicated per aug. Awaiting further meds from pharmacy. Pt provided with breakfast tray and refusing to eat. Pt drank some milk, and water. Call wagner within reach. Pt able to teach back use of call wagner and knows to press wagner prior to getting out of bed. Bed alarm on and audible in the event pt were to try to get oob.
[2021-08-20] MEDS: Amitriptyline HCl 50 MG TABLET PO (08:31)
[2021-08-20] MEDS: Torsemide 20 MG TABLET 100 MG PO (08:31)
[2021-08-20] MEDS: metOLazone 5 MG TABLET PO (08:31)
--- NOTE | 2021-08-20 08:39 | PC.NURSE ---
Pt incontinent of stool. incontinence care provided, and lines changed./ Pt placed back on resident care provider and new gown placed.
--- NOTE | 2021-08-20 11:51 | PC.NURSE ---
Pt pulled out his IV. RN replaced a new IV 22g PIV in the left wrist. Pt was boosted in the bed with ax2, and repositioned side lying left. incontinance care performed. pt with some loose stool. call wagner within reach.
--- NOTE | 2021-08-20 12:12 | P.CNID_ITS ---
History of Present Illness Data of Consult Service Date: 08/20/21 Requesting physician: Jone Petty Primary Care Provider: Tawana Bowen NP HPI Reason for consult: fatigue,hypoxia,COVID He presents with weakness and Camilo unable to drain. He has dark urine and was discharged yesterday. He has new positive COVID test. Review of Systems Review of Systems: Yes all other systems are reviewed and are negative [facility] Past Medical History Medical History Anasarca Atrial fibrillation CAD (coronary artery disease) Cataract Cholecystectomy planned Chronic combined systolic and diastolic congestive heart failure Chronic respiratory failure CKD (chronic kidney disease) stage 3, GFR 30-59 ml/min CVA (cerebral vascular accident) Diabetes Gross hematuria Heart attack HTN (hypertension) Hyperlipidemia Neuropathy DARLENE on CPAP Permanent atrial fibrillation Polycythemia vera Pulmonary hypertension Toe amputee Urinary retention with incomplete bladder emptying Family History Family History Father Diabetes Hx of cancer antigen 125 (CA-125) measurement Mother Diabetes Brother Diabetes Hx of cancer antigen 125 (CA-125) measurement Family history: reviewed and not pertinent Surgical History Surgical History History of cholecystectomy Social History Social History Household Members: Other 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 Housing: Long-Term Do you presently have visiting nurse or other home services: No Alcohol intake: former Patient Tobacco Use Status: Never used Tobacco service: No Current occupational status: disabled Meds Allergies Allergy/AdvReac Type Severity Reaction Status Date / Time No Known Allergies Allergy Unknown NKDA Verified 08/18/21 13:21 Active Medications: Current Medications Acetaminophen (Acetaminophen 325 Mg Tablet) 650 mg PO Q6H PRN PRN Reason: Pain, Mild (Pain Scale 1-3) Last Admin: 08/20/21 08:10 Dose: 650 mg Documented by: Amitriptyline HCl (Amitriptyline Hcl 50 Mg Tablet) 50 mg PO DAILY [facility] Last Admin: 08/20/21 08:31 Dose: 50 mg Documented by: Amitriptyline HCl (Amitriptyline Hcl 50 Mg Tablet) 150 mg PO BEDTIME [facility] Last Admin: 08/19/21 23:12 Dose: 150 mg Documented by: Ascorbic Acid (Ascorbic Acid 500 Mg Tablet) 500 mg PO DAILY [facility] Last Admin: 08/20/21 08:11 Dose: 500 mg Documented by: Atorvastatin Calcium (Atorvastatin Calcium 80 Mg Tablet) 80 mg PO DAILY [facility] Last Admin: 08/20/21 08:10 Dose: 80 mg Documented by: Cefuroxime Axetil (Cefuroxime Axetil 250 Mg Tablet) 250 mg PO Q12H [facility] Stop: 08/26/21 07:59 Last Admin: 08/20/21 08:11 Dose: 250 mg Documented by: Dextrose (Dextrose 50 % 25 Gm/50 Ml Syringe) 25 gm IVPUSH Q15M PRN; Protocol PRN Reason: per Hypoglycemia Standing Ord. Glucose (Glucose Gel 15 Gm Gel..Gram.) 15 gm PO Q15M PRN; Protocol PRN Reason: per Hypoglycemia Standing Ord. Hydralazine HCl (Hydralazine Hcl 25 Mg Tablet) 25 mg PO TID [facility]; Protocol Last Admin: 08/20/21 08:10 Dose: 25 mg Documented by: Remdesivir 100 mg/ Sodium (Chloride) 230 mls @ 115 mls/hr IV Q24H [facility] Stop: 08/24/21 14:59 Remdesivir 200 mg/ Sodium (Chloride) 210 mls @ 105 mls/hr IV ONCE ONE Stop: 08/20/21 15:59 Insulin Human Lispro (Insulin Lispro 100 Unit/Ml 3 Ml Vial) 0 unit SUBCUT QIDACHS [facility]; Protocol Last Admin: 08/20/21 07:35 Dose: Not Given Documented by: Isosorbide Mononitrate (Isosorbide Mononitrate 60 Mg Tab.Er.24h) 60 mg PO DAILY [facility]; Protocol Last Admin: 08/20/21 08:11 Dose: 60 mg Documented by: Melatonin (Melatonin 3 Mg Tablet) 6 mg PO BEDTIME PRN PRN Reason: Insomnia Metolazone (Metolazone 5 Mg Tablet) 5 mg PO DAILY [facility] Last Admin: 08/20/21 08:31 Dose: 5 mg Documented by: Metoprolol Succinate (Metoprolol Succinate Er 25 Mg Tab.Er.24h) 25 mg PO DAILY [facility]; Protocol Last Admin: 08/20/21 08:11 Dose: 25 mg Documented by: Omeprazole (Omeprazole 40 Mg Capsule.Dr) 40 mg PO DAILY@0630 [facility] Last Admin: 08/20/21 08:11 Dose: 40 mg Documented by: Pharmacy Consult (Consult Rx Perform Med Rec) 1 each MISCELLANE ONCE PRN PRN Reason: Consult order Pharmacy Consult (Consult Rx Perform Med Rec) 1 each MISCELLANE ONCE PRN PRN Reason: Consult order Potassium Chloride (Potassium Chloride Er 20 Meq Tab.Er.Prt) 40 meq PO BID [facility] Last Admin: 08/20/21 08:10 Dose: 40 meq Documented by: Senna (Sennosides 8.6 Mg Tablet) 17.2 mg PO BEDTIME PRN PRN Reason: Constipation Sodium Chloride (0.9 % Sodium Chloride Flush 3 Ml Syringe) 3 ml IVFLUSH QSHIFT [facility] Last Admin: 08/20/21 08:29 Dose: Not Given Documented by: Torsemide (Torsemide 20 Mg Tablet) 100 mg PO BID [facility]; Protocol Last Admin: 08/20/21 08:31 Dose: 100 mg Documented by: Warfarin Sodium (Warfarin Sodium 2.5 Mg Tablet) 2.5 mg PO MoTuWeThFrSa@1800 [facility] Warfarin Sodium (Warfarin Sodium 5 Mg Tablet) 5 mg PO Carrillo@1800 [facility] Home Medications Medication Instructions Recorded Confirmed Last Taken Type amitriptyline 50 mg tablet 1 tab PO DAILY 05/08/20 09/08/21 08/18/21 History atorvastatin 80 mg tablet 1 tab PO BEDTIME 05/08/20 09/08/21 08/18/21 History dulaglutide 1.5 mg/0.5 mL 1 mg SUBCUT MO 05/08/20 09/08/21 05/03/20 History subcutaneous pen injector (Trulicity) insulin regular hum U-500 conc 500 20 unit SUBCUT QAM 05/08/20 09/08/21 08/18/21 History unit/mL subcutaneous soln (Humulin R U-500 (Concentrated) Insulin) metoprolol succinate 25 mg 1 tab PO DAILY 05/08/20 09/08/21 08/18/21 History tablet,extended release 24 hr amitriptyline 50 mg tablet 150 mg PO BEDTIME 07/17/21 09/08/21 08/17/21 History ascorbic acid (vitamin C) 500 mg 500 mg PO DAILY 07/17/21 09/08/21 08/18/21 History tablet hydralazine 25 mg tablet 1 tab PO TID 07/17/21 09/08/21 08/18/21 History insulin regular hum U-500 conc 500 10 unit SUBCUT BEDTIME 07/17/21 09/08/21 08/17/21 History unit/mL subcutaneous soln (Humulin R U-500 (Concentrated) Insulin) isosorbide mononitrate 60 mg 1 tab PO DAILY 07/17/21 09/08/21 08/18/21 History tablet,extended release 24 hr metolazone 5 mg tablet 1 tab PO MOTUWETHFR 07/17/21 09/08/21 08/18/21 History torsemide 100 mg tablet 1 tab PO BID 07/17/21 09/08/21 08/18/21 History cholecalciferol (vitamin D3) 1,250 1,250 mcg PO TU 09/08/21 09/08/21 Unknown History mcg (50,000 unit) tablet omeprazole 40 mg capsule,delayed 40 mg PO DAILY@0630 09/08/21 09/08/21 Unknown History release warfarin 3 mg tablet 3 mg PO DAILY@1800 09/08/21 09/08/21 Unknown History Physical Exam Vital Signs: Vital Signs: Last Vital Signs Temp 97.8 F 08/19/21 16:00 Pulse 94 08/20/21 07:32 Resp 20 08/20/21 07:32 BP 129/87 08/20/21 07:32 Pulse Ox 92 08/20/21 07:32 Oxygen Flow Rate 2 08/18/21 09:23 BMI result Body Mass Index 33.5 Const: General: cooperative HENMT: Head: Yes normal to inspection Resp: Effort & Inspection: normal respiratory effort Cardio: Rate: regular rate Rhythm: regular rhythm GI: Palpation (GI): nontender Skin: General skin exam: no rashes or lesions noted Results Labs CBC & Chem 7: 08/25/21 07:01 08/25/21 07:01 Labs: Short CBC 08/19/21 08/20/21 Range/Units 20:14 07:02 WBC 13.0 H 14.5 H (4.8-10.8) X10*3/uL Hgb 10.2 L 10.1 L (14.0-18.0) g/dl Hct 31.3 L 31.6 L (42.0-52.0) % Plt Count 337 350 (160-400) X10*3/uL BMP 08/19/21 08/20/21 20:14 07:02 Sodium 138 140 Potassium 3.1 L 3.5 Chloride 97 97 Carbon Dioxide 32 H 30 H BUN 84 H 81 H Creatinine 2.27 H 2.27 H Calcium 8.2 L 8.5 Liver Function 08/19/21 Range/Units 20:14 Total Bilirubin 1.3 H (0.0-1.0) mg/dL Direct Bilirubin 0.8 H (0.0-0.5) mg/dL AST 42 H (5-37) U/L ALT 22 (0-40) U/L Alkaline Phosphatase 186 H (39-117) U/L Albumin 2.4 L (3.5-5.0) g/dL Microbiology Microbiology Results: Microbiology 08/18/21 00:00 Urine Catheterized - Camilo Catheter Urine Culture - Final Escherichia coli Enterococcus faecalis 08/18/21 13:33 Blood - Venous Blood Culture - Preliminary No growth after 24 hours. 08/18/21 13:33 Blood - Venous Blood Culture - Preliminary No growth after 24 hours. Assessment and Plan (1) SARS-CoV-2 positive: Status: Resolved He has hypoxia and has oxygen now at four liters. He is newly COVID positive. He is not on high flow (2) Acute urinary retention: Status: Resolved Plan Oxygen Dexamethasone Remdesivir for five days or until not hypoxic Baricitinib if no active infection.
[2021-08-20 12:52] LABS: Glucose, Whole Blood 126 mg/dL (60-115)
--- NOTE | 2021-08-20 12:53 | PC.NURSE ---
Pt appears to be newly altered. not answering questions, pt only awakens to stimuli and falls right back asleep. provider Jone Petty made aware. ABG ordered. RN to start weaning pt off of O2. awaiting further orders.
[2021-08-20] MEDS: dexAMETHasone sod phosphate 4 MG/ML VIAL 6 MG IVPUSH (13:17)
[2021-08-20 13:24] LABS: ABG Base Excess 15.4 mmol/L; ABG HCO3 38 mmol/L (22-26); ABG pCO2 40 mmHg (32-45); ABG pH 7.58 (7.35-7.45); ABG pO2 93 mmHg (83-108)
--- NOTE | 2021-08-20 13:32 | P.PNIM_ITS ---
Subjective Subjective Date of Service: 08/20/21 Interval History: cc: difficulty draining catheter, fall in ED with hypoxia interval history: sleepy Cardiovascular Cardiovascular: Reports no additional cardiovascular complaints Respiratory Respiratory: Reports no additional respiratory complaints Physical Exam Vital Signs: Vital Signs: Last Vital Signs Temp 97.7 F 08/20/21 13:16 Pulse 80 08/20/21 13:25 Resp 14 08/20/21 13:25 BP 114/67 08/20/21 13:25 Pulse Ox 96 08/20/21 13:25 Oxygen Flow Rate 2 08/18/21 09:23 BMI result Body Mass Index 33.5 General: obtunded Resp: diminihsed bilateral, no accessory muscles used CVS: S1,S2,RRR GI: soft, non tender, non distended Neuro: obtunded Psych: flat affect, impaired insight Objective Data Active Medications Acetaminophen (Acetaminophen 325 Mg Tablet) 650 mg PO Q6H PRN PRN Reason: Pain, Mild (Pain Scale 1-3) Last Admin: 08/20/21 08:10 Dose: 650 mg Documented by: ANJU Acetazolamide (Acetazolamide Sodium 500 Mg Vial) 500 mg IVPUSH BID [facility] Stop: 08/22/21 13:29 Amitriptyline HCl (Amitriptyline Hcl 50 Mg Tablet) 50 mg PO DAILY [facility] Last Admin: 08/20/21 08:31 Dose: 50 mg Documented by: ANJU Amitriptyline HCl (Amitriptyline Hcl 50 Mg Tablet) 150 mg PO BEDTIME [facility] Last Admin: 08/19/21 23:12 Dose: 150 mg Documented by: HERMINIO Ascorbic Acid (Ascorbic Acid 500 Mg Tablet) 500 mg PO DAILY [facility] Last Admin: 08/20/21 08:11 Dose: 500 mg Documented by: ANJU Atorvastatin Calcium (Atorvastatin Calcium 80 Mg Tablet) 80 mg PO DAILY [facility] Last Admin: 08/20/21 08:10 Dose: 80 mg Documented by: ANJU Cefuroxime Axetil (Cefuroxime Axetil 250 Mg Tablet) 250 mg PO Q12H [facility] Stop: 08/26/21 07:59 Last Admin: 08/20/21 08:11 Dose: 250 mg Documented by: ANJU Dextrose (Dextrose 50 % 25 Gm/50 Ml Syringe) 25 gm IVPUSH Q15M PRN; Protocol PRN Reason: per Hypoglycemia Standing Ord. Glucose (Glucose Gel 15 Gm Gel..Gram.) 15 gm PO Q15M PRN; Protocol PRN Reason: per Hypoglycemia Standing Ord. Hydralazine HCl (Hydralazine Hcl 25 Mg Tablet) 25 mg PO TID [facility]; Protocol Last Admin: 08/20/21 08:10 Dose: 25 mg Documented by: ANJU Remdesivir 100 mg/ Sodium (Chloride) 230 mls @ 115 mls/hr IV Q24H [facility] Stop: 08/24/21 14:59 Remdesivir 200 mg/ Sodium (Chloride) 210 mls @ 105 mls/hr IV ONCE ONE Stop: 08/20/21 15:59 Insulin Human Lispro (Insulin Lispro 100 Unit/Ml 3 Ml Vial) 0 unit SUBCUT QIDACHS [facility]; Protocol Last Admin: 08/20/21 12:48 Dose: Not Given Documented by: ANJU Non-Admin Reason: No Insulin Coverage Comments: BGL 126 Isosorbide Mononitrate (Isosorbide Mononitrate 60 Mg Tab.Er.24h) 60 mg PO DAILY [facility]; Protocol Last Admin: 08/20/21 08:11 Dose: 60 mg Documented by: ANJU Metolazone (Metolazone 5 Mg Tablet) 5 mg PO DAILY [facility] Last Admin: 08/20/21 08:31 Dose: 5 mg Documented by: ANJU Metoprolol Succinate (Metoprolol Succinate Er 25 Mg Tab.Er.24h) 25 mg PO DAILY [facility]; Protocol Last Admin: 08/20/21 08:11 Dose: 25 mg Documented by: ANJU Omeprazole (Omeprazole 40 Mg Capsule.Dr) 40 mg PO DAILY@0630 [facility] Last Admin: 08/20/21 08:11 Dose: 40 mg Documented by: ANJU Pharmacy Consult (Consult Rx Perform Med Rec) 1 each MISCELLANE ONCE PRN PRN Reason: Consult order Pharmacy Consult (Consult Rx Perform Med Rec) 1 each MISCELLANE ONCE PRN PRN Reason: Consult order Potassium Chloride (Potassium Chloride Er 20 Meq Tab.Er.Prt) 40 meq PO BID [facility] Last Admin: 08/20/21 08:10 Dose: 40 meq Documented by: ANJU Senna (Sennosides 8.6 Mg Tablet) 17.2 mg PO BEDTIME PRN PRN Reason: Constipation Sodium Chloride (0.9 % Sodium Chloride Flush 3 Ml Syringe) 3 ml IVFLUSH QSHIFT [facility] Last Admin: 08/20/21 08:29 Dose: Not Given Documented by: ANJU Non-Admin Reason: See Note Warfarin Sodium (Warfarin Sodium 2.5 Mg Tablet) 2.5 mg PO MoTuWeThFrSa@1800 [facility] Warfarin Sodium (Warfarin Sodium 5 Mg Tablet) 5 mg PO Carrillo@1800 [facility] Labs CBC & Chem 7: 08/20/21 07:02 08/20/21 07:02 Labs: Laboratory Results - last 24 hr 08/19/21 08/19/21 08/19/21 17:55 19:55 20:14 MCV 91.3 MCH 29.7 MCHC 32.6 RDW 18.1 H Plt Count 337 MPV 8.9 L Immature Gran % (Auto) 1.2 H Neut % (Auto) 87.8 H Lymph % (Auto) 3.9 L Riley % (Auto) 6.1 Eos % (Auto) 0.8 Baso % (Auto) 0.2 Lymph # (Auto) 0.5 L Riley # (Auto) 0.8 Eos # (Auto) 0.1 Baso # (Auto) 0.0 Abs Immat Gran (auto) 0.16 H Absolute Neuts (auto) 11.4 H Absolute Nucleated RBC 0.000 Nucleated RBC % (auto) 0.0 PT INR O2 Saturation ABG pH at Pt Temp ABG pCO2 at Pt Temp ABG pO2 at Pt Temp ABG HCO3 ABG Base Excess (Actual) Anion Gap Estim Creat Clear Calc Estimated GFR POC Glucose 191 H 191 H Random Glucose Calcium Total Bilirubin Direct Bilirubin AST ALT Alkaline Phosphatase Total Protein Albumin 08/19/21 08/19/21 08/20/21 20:14 22:21 07:02 MCV 92.7 MCH 29.6 MCHC 32.0 RDW 18.1 H Plt Count 350 MPV 8.8 L Immature Gran % (Auto) 0.5 H Neut % (Auto) 85.4 H Lymph % (Auto) 4.8 L Riley % (Auto) 8.1 Eos % (Auto) 0.9 Baso % (Auto) 0.3 Lymph # (Auto) 0.7 L Riley # (Auto) 1.2 Eos # (Auto) 0.1 Baso # (Auto) 0.0 Abs Immat Gran (auto) 0.07 H Absolute Neuts (auto) 12.4 H Absolute Nucleated RBC 0.000 Nucleated RBC % (auto) 0.0 PT INR O2 Saturation ABG pH at Pt Temp ABG pCO2 at Pt Temp ABG pO2 at Pt Temp ABG HCO3 ABG Base Excess (Actual) Anion Gap 12 Estim Creat Clear Calc 44.0 Estimated GFR 30 POC Glucose 170 H Random Glucose 192 H Calcium 8.2 L Total Bilirubin 1.3 H Direct Bilirubin 0.8 H AST 42 H ALT 22 Alkaline Phosphatase 186 H Total Protein 6.6 Albumin 2.4 L 08/20/21 08/20/21 08/20/21 07:02 07:02 07:31 MCV MCH MCHC RDW Plt Count MPV Immature Gran % (Auto) Neut % (Auto) Lymph % (Auto) Riley % (Auto) Eos % (Auto) Baso % (Auto) Lymph # (Auto) Riley # (Auto) Eos # (Auto) Baso # (Auto) Abs Immat Gran (auto) Absolute Neuts (auto) Absolute Nucleated RBC Nucleated RBC % (auto) PT 15.5 H INR 1.4 H O2 Saturation ABG pH at Pt Temp ABG pCO2 at Pt Temp ABG pO2 at Pt Temp ABG HCO3 ABG Base Excess (Actual) Anion Gap 17 Estim Creat Clear Calc 44.0 Estimated GFR 30 POC Glucose 149 H Random Glucose 150 H Calcium 8.5 Total Bilirubin Direct Bilirubin AST ALT Alkaline Phosphatase Total Protein Albumin 08/20/21 08/20/21 12:45 13:16 MCV MCH MCHC RDW Plt Count MPV Immature Gran % (Auto) Neut % (Auto) Lymph % (Auto) Riley % (Auto) Eos % (Auto) Baso % (Auto) Lymph # (Auto) Riley # (Auto) Eos # (Auto) Baso # (Auto) Abs Immat Gran (auto) Absolute Neuts (auto) Absolute Nucleated RBC Nucleated RBC % (auto) PT INR O2 Saturation 97.0 ABG pH at Pt Temp 7.58 H ABG pCO2 at Pt Temp 40 ABG pO2 at Pt Temp 93 ABG HCO3 38 H ABG Base Excess (Actual) 15.4 Anion Gap Estim Creat Clear Calc Estimated GFR POC Glucose 126 H Random Glucose Calcium Total Bilirubin Direct Bilirubin AST ALT Alkaline Phosphatase Total Protein Albumin Microbiology Microbiology Results: Microbiology 08/18/21 00:00 Urine Culture - Final Urine Catheterized - Camilo Catheter Escherichia coli Enterococcus faecalis 08/18/21 13:33 Blood Culture - Preliminary Blood - Venous No growth after 24 hours. 08/18/21 13:33 Blood Culture - Preliminary Blood - Venous No growth after 24 hours. Assessment and Plan (1) Hypoxia: Status: Acute Plan 61-year-old male presented to the ED with difficulty draining his catheter, found to be COVID positive, found to have E coli bacteriuria, patient had a fall while in the ED and was briefly hypoxic. Acute on chronic hypoxic respiratory failure Brief episode, now back to baseline O2, unlikely due to COVID Was probably pain related from fall Wean O2 as tolerated for a saturation of low 90s Metabolic encephalopathy Check repeat head CT Could be due to poor sleep Monitor COVID ID appreciated remdisivir day 1 of 5 Bacteriuria Empirically treated with cefuroxime Urinary retention Continue Camilo, minimal hematuria Will rechallenge with Coumadin in about 1 week CKD IV stable DM insulin DARLENE cpap morbid obesity weight loss CAD statin coumadin on hold metabolic alkalosis hold torsemide, start diamox, montior chronic diastolic chf diamox, metolazone htn hydralazine imdur toprol chronic afib coumadin on hold toprol history of CVA statin restart coumadin in about 1 week Quality Stroke Does the patient have a stroke diagnosis?: No VTE Prior VTE?: No VTE Risk Level:: Medical - moderate - high VTE Device Contraindication: N/A - Device Ordered VTE Drug Contraindication: Treatment Not Tolerated
[2021-08-20 13:44] LABS: ABG Refer to POC result
[2021-08-20] MEDS: Remdesivir 200 MG in 0.9 % Sodium Chloride 210 ML 105 MG IV (14:10)
[2021-08-20] MEDS: acetaZOLAMIDE sodium 500 MG VIAL IVPUSH ×2 (14:10→21:08)
[2021-08-20 16:08] LABS: Glucose, Whole Blood 134 mg/dL (60-115)
[2021-08-20] MEDS: 0.9 % Sodium Chloride Flush 3 ML SYRINGE IVFLUSH ×2 (17:46→21:08)
[2021-08-20 21:03] LABS: Glucose, Whole Blood 159 mg/dL (60-115)
[2021-08-20] MEDS: Insulin Lispro 100 UNIT/ML 3 ML VIAL SUBCUT (21:07)
[2021-08-20] MEDS: Amitriptyline HCl 50 MG TABLET 150 MG PO (21:08)
[2021-08-21] VITALS (9 sets, daily range): BP systolic 99–143; BP diastolic 58–76; PULSE 54–90; RESP 14–23; TEMP 36.3–37.3; O2SAT 92–99
[2021-08-21] MEDS: Omeprazole 40 MG CAPSULE.DR PO (05:11)
[2021-08-21 07:22] LABS: Hematocrit 28.9 % (42.0-52.0); Hemoglobin 9.2 g/dl (14.0-18.0); Mean Corpuscular HGB Conc 31.8 g/dl (31.0-36.0); Mean Corpuscular Hemoglobin 29.6 pg (27.0-33.0); Mean Corpuscular Volume 92.9 fL (80.0-98.0); Mean Platelet Volume 9.3 fL (9.4-12.4); Platelet Count 305 X10*3/uL (160-400); Red Blood Count 3.11 X10*6/uL (4.60-5.80); Red Cell Distribution Width 17.8 % (11.0-16.0); White Blood Count 10.6 X10*3/uL (4.8-10.8)
[2021-08-21 07:30] LABS: Glucose, Whole Blood 173 mg/dL (60-115)
[2021-08-21 07:33] LABS: Anion Gap 15 (12-20); Blood Urea Nitrogen 79 mg/dL (9-16); Calcium 7.9 mg/dL (8.4-10.2); Carbon Dioxide 30 mmol/L (22-29); Chloride 97 mmol/L (96-108); Creatinine Clr Calc Pharmacy 46.4; Estimated Glomerular Filt Rate 32; Glucose Fasting 175 mg/dL (60-99); Potassium 3.5 mmol/L (3.3-5.1); Sodium 138 mmol/L (135-145)
[2021-08-21] MEDS: 0.9 % Sodium Chloride Flush 3 ML SYRINGE IVFLUSH ×3 (08:03→20:33)
[2021-08-21] MEDS: Insulin Lispro 100 UNIT/ML 3 ML VIAL SUBCUT ×4 (08:03→20:32)
[2021-08-21] MEDS: metOLazone 5 MG TABLET PO (09:34)
[2021-08-21] MEDS: Isosorbide Mononitrate 60 MG TAB.ER.24H PO (09:34)
[2021-08-21] MEDS: acetaZOLAMIDE sodium 500 MG VIAL IVPUSH ×2 (09:34→20:32)
[2021-08-21] MEDS: Potassium Chloride ER 20 MEQ TAB.ER.PRT 40 MEQ PO ×2 (09:34→20:32)
[2021-08-21] MEDS: Amitriptyline HCl 50 MG TABLET PO (09:35)
[2021-08-21] MEDS: Metoprolol Succinate ER 25 MG TAB.ER.24H PO (09:35)
[2021-08-21] MEDS: hydrALAZINE HCl 25 MG TABLET PO ×3 (09:35→20:33)
[2021-08-21] MEDS: Atorvastatin Calcium 80 MG TABLET PO (09:35)
[2021-08-21] MEDS: Ascorbic Acid 500 MG TABLET PO (09:35)
--- NOTE | 2021-08-21 10:17 | HO.PM.IMPN ---
Subjective Subjective Date of Service: 08/21/21 Interval History: cc: difficulty draining catheter, fall in ED with hypoxia interval history: no complaints Cardiovascular Cardiovascular: Reports no additional cardiovascular complaints Respiratory Respiratory: Reports no additional respiratory complaints Physical Exam Vital Signs: Vital Signs: Last Vital Signs Temp 98.4 F 08/21/21 02:51 Pulse 70 08/21/21 08:00 Resp 16 08/21/21 08:00 BP 117/67 08/21/21 08:00 Pulse Ox 97 08/21/21 08:00 Oxygen Flow Rate 2 08/18/21 09:23 BMI result Body Mass Index 33.5 General: easily rousable Resp:? diminihsed bilateral, no accessory muscles used CVS: S1,S2,RRR GI: soft, non tender, non distended Neuro:? easily rousable Psych: flat affect, impaired insight? Objective Data Active Medications Acetaminophen (Acetaminophen 325 Mg Tablet) 650 mg PO Q6H PRN PRN Reason: Pain, Mild (Pain Scale 1-3) Last Admin: 08/20/21 08:10 Dose: 650 mg Documented by: ANJU Acetazolamide (Acetazolamide Sodium 500 Mg Vial) 500 mg IVPUSH BID [facility] Stop: 08/22/21 13:29 Last Admin: 08/21/21 09:34 Dose: 500 mg Documented by: JORDIN Amitriptyline HCl (Amitriptyline Hcl 50 Mg Tablet) 50 mg PO DAILY [facility] Last Admin: 08/21/21 09:35 Dose: 50 mg Documented by: JORDIN Amitriptyline HCl (Amitriptyline Hcl 50 Mg Tablet) 150 mg PO BEDTIME [facility] Last Admin: 08/20/21 21:08 Dose: 150 mg Documented by: MARIZOL Ascorbic Acid (Ascorbic Acid 500 Mg Tablet) 500 mg PO DAILY [facility] Last Admin: 08/21/21 09:35 Dose: 500 mg Documented by: JORDIN Atorvastatin Calcium (Atorvastatin Calcium 80 Mg Tablet) 80 mg PO DAILY [facility] Last Admin: 08/21/21 09:35 Dose: 80 mg Documented by: JORDIN Cefuroxime Axetil (Cefuroxime Axetil 250 Mg Tablet) 250 mg PO Q12H [facility] Stop: 08/26/21 07:59 Last Admin: 08/21/21 09:35 Dose: 250 mg Documented by: JORDIN Dextrose (Dextrose 50 % 25 Gm/50 Ml Syringe) 25 gm IVPUSH Q15M PRN; Protocol PRN Reason: per Hypoglycemia Standing Ord. Glucose (Glucose Gel 15 Gm Gel..Gram.) 15 gm PO Q15M PRN; Protocol PRN Reason: per Hypoglycemia Standing Ord. Hydralazine HCl (Hydralazine Hcl 25 Mg Tablet) 25 mg PO TID [facility]; Protocol Last Admin: 08/21/21 09:35 Dose: 25 mg Documented by: JORDIN Remdesivir 100 mg/ Sodium (Chloride) 230 mls @ 115 mls/hr IV Q24H [facility] Stop: 08/24/21 14:59 Insulin Human Lispro (Insulin Lispro 100 Unit/Ml 3 Ml Vial) 0 unit SUBCUT QIDACHS [facility]; Protocol Last Admin: 08/21/21 08:03 Dose: 2 unit Documented by: JORDIN Isosorbide Mononitrate (Isosorbide Mononitrate 60 Mg Tab.Er.24h) 60 mg PO DAILY [facility]; Protocol Last Admin: 08/21/21 09:34 Dose: 60 mg Documented by: JORDIN Metolazone (Metolazone 5 Mg Tablet) 5 mg PO DAILY [facility] Last Admin: 08/21/21 09:34 Dose: 5 mg Documented by: JORDIN Metoprolol Succinate (Metoprolol Succinate Er 25 Mg Tab.Er.24h) 25 mg PO DAILY [facility]; Protocol Last Admin: 08/21/21 09:35 Dose: 25 mg Documented by: JORDIN Omeprazole (Omeprazole 40 Mg Capsule.Dr) 40 mg PO DAILY@0630 [facility] Last Admin: 08/21/21 05:11 Dose: 40 mg Documented by: FABBY Pharmacy Consult (Consult Rx Perform Med Rec) 1 each MISCELLANE ONCE PRN PRN Reason: Consult order Pharmacy Consult (Consult Rx Perform Med Rec) 1 each MISCELLANE ONCE PRN PRN Reason: Consult order Potassium Chloride (Potassium Chloride Er 20 Meq Tab.Er.Prt) 40 meq PO BID [facility] Last Admin: 08/21/21 09:34 Dose: 40 meq Documented by: JORDIN Senna (Sennosides 8.6 Mg Tablet) 17.2 mg PO BEDTIME PRN PRN Reason: Constipation Sodium Chloride (0.9 % Sodium Chloride Flush 3 Ml Syringe) 3 ml IVFLUSH QSHIFT [facility] Last Admin: 08/21/21 08:03 Dose: 3 ml Documented by: JORDIN Warfarin Sodium (Warfarin Sodium 2.5 Mg Tablet) 2.5 mg PO MoTuWeThFrSa@1800 [facility] Warfarin Sodium (Warfarin Sodium 5 Mg Tablet) 5 mg PO Carrillo@1800 [facility] Labs CBC & Chem 7: 08/21/21 06:49 08/21/21 06:49 Labs: Laboratory Results - last 24 hr 08/20/21 08/20/21 08/20/21 12:45 13:16 16:00 MCV MCH MCHC RDW Plt Count MPV Absolute Nucleated RBC Nucleated RBC % (auto) O2 Saturation 97.0 ABG pH at Pt Temp 7.58 H ABG pCO2 at Pt Temp 40 ABG pO2 at Pt Temp 93 ABG HCO3 38 H ABG Base Excess (Actual) 15.4 Anion Gap Estim Creat Clear Calc Estimated GFR POC Glucose 126 H 134 H Fasting Glucose Calcium 08/20/21 08/21/21 08/21/21 20:57 06:49 06:49 MCV 92.9 MCH 29.6 MCHC 31.8 RDW 17.8 H Plt Count 305 MPV 9.3 L Absolute Nucleated RBC 0.000 Nucleated RBC % (auto) 0.0 O2 Saturation ABG pH at Pt Temp ABG pCO2 at Pt Temp ABG pO2 at Pt Temp ABG HCO3 ABG Base Excess (Actual) Anion Gap 15 Estim Creat Clear Calc 46.4 Estimated GFR 32 POC Glucose 159 H Fasting Glucose 175 H Calcium 7.9 L D 08/21/21 07:17 MCV MCH MCHC RDW Plt Count MPV Absolute Nucleated RBC Nucleated RBC % (auto) O2 Saturation ABG pH at Pt Temp ABG pCO2 at Pt Temp ABG pO2 at Pt Temp ABG HCO3 ABG Base Excess (Actual) Anion Gap Estim Creat Clear Calc Estimated GFR POC Glucose 173 H Fasting Glucose Calcium Microbiology Microbiology Results: Microbiology 08/18/21 13:33 Blood Culture - Preliminary Blood - Venous No growth after 48 hours. 08/18/21 13:33 Blood Culture - Preliminary Blood - Venous No growth after 48 hours. 08/18/21 00:00 Urine Culture - Final Urine Catheterized - Camilo Catheter Escherichia coli Enterococcus faecalis Assessment and Plan (1) Hypoxia: Status: Acute Plan 61-year-old male presented to the ED with difficulty draining his catheter, found to be COVID positive, found to have E coli bacteriuria, patient had a fall while in the ED and was briefly hypoxic. Acute on chronic hypoxic respiratory failure Brief episode, now back to baseline O2, unlikely due to COVID Was probably pain related from fall Wean O2 as tolerated for a saturation of low 90s Metabolic encephalopathy unremarkable repeat head CT probably related to obesity/darlene Monitor COVID ID appreciated remdisivir day 2 of 5 Bacteriuria Empirically treated with cefuroxime Urinary retention Continue Camilo, minimal hematuria Will rechallenge with Coumadin in about 1 week CKD IV stable DM insulin DARLENE cpap morbid obesity weight loss CAD statin coumadin on hold metabolic alkalosis hold torsemide, start diamox, montior chronic diastolic chf diamox, metolazone htn hydralazine imdur toprol chronic afib coumadin on hold toprol history of CVA statin restart coumadin in about 1 week Quality Stroke Does the patient have a stroke diagnosis?: No VTE Prior VTE?: No VTE Risk Level:: Medical - moderate - high VTE Device Contraindication: N/A - Device Ordered VTE Drug Contraindication: Treatment Not Tolerated
[2021-08-21 11:25] LABS: Glucose, Whole Blood 206 mg/dL (60-115)
[2021-08-21] MEDS: Remdesivir 100 MG in 0.9 % Sodium Chloride 230 ML 115 MG IV (12:15)
[2021-08-21 16:20] LABS: Glucose, Whole Blood 201 mg/dL (60-115)
[2021-08-21 19:45] LABS: Glucose, Whole Blood 198 mg/dL (60-115)
[2021-08-21] MEDS: Amitriptyline HCl 50 MG TABLET 150 MG PO (20:32)
[2021-08-22] VITALS (8 sets, daily range): BP systolic 108–117; BP diastolic 59–72; PULSE 57–88; RESP 14–20; TEMP 36.1–37.2; O2SAT 95–100; BMI 33.5
[2021-08-22] MEDS: Omeprazole 40 MG CAPSULE.DR PO (06:00)
[2021-08-22 06:51] LABS: Hemoglobin 9.6 g/dl (14.0-18.0); Mean Corpuscular Hemoglobin 29.1 pg (27.0-33.0); Mean Corpuscular Volume 93.9 fL (80.0-98.0); Mean Platelet Volume 9.2 fL (9.4-12.4); Platelet Count 291 X10*3/uL (160-400); Red Cell Distribution Width 17.1 % (11.0-16.0); White Blood Count 10.9 X10*3/uL (4.8-10.8)
[2021-08-22 06:53] LABS: Anion Gap 13 (12-20); Blood Urea Nitrogen 72 mg/dL (9-16); C Reactive Protein 2.65 mg/dL (< or = 0.50); Calcium 7.9 mg/dL (8.4-10.2); Carbon Dioxide 28 mmol/L (22-29); Chloride 99 mmol/L (96-108); Creatinine Clr Calc Pharmacy 50.2; Estimated Glomerular Filt Rate 35; Glucose Fasting 134 mg/dL (60-99); Sodium 137 mmol/L (135-145)
[2021-08-22 08:05] LABS: Glucose, Whole Blood 136 mg/dL (60-115)
--- NOTE | 2021-08-22 09:24 | P.PNIM_ITS ---
Subjective Subjective Date of Service: 08/22/21 Interval History: cc: difficulty draining catheter, fall in ED with hypoxia interval history: no complaints Cardiovascular Cardiovascular: Reports no additional cardiovascular complaints Respiratory Respiratory: Reports no additional respiratory complaints Physical Exam Vital Signs: Vital Signs: Last Vital Signs Temp 97.1 F 08/22/21 07:27 Pulse 59 08/22/21 07:27 Resp 20 08/22/21 07:27 BP 112/65 08/22/21 07:27 Pulse Ox 100 08/22/21 07:27 Oxygen Flow Rate 2 08/18/21 09:23 BMI result Body Mass Index 33.5 General: easily rousable Resp:? diminihsed bilateral, no accessory muscles used CVS: S1,S2,RRR GI: soft, non tender, non distended Neuro:? easily rousable Psych: flat affect, impaired insight? Objective Data Active Medications Acetaminophen (Acetaminophen 325 Mg Tablet) 650 mg PO Q6H PRN PRN Reason: Pain, Mild (Pain Scale 1-3) Last Admin: 08/20/21 08:10 Dose: 650 mg Documented by: ANJU Acetazolamide (Acetazolamide Sodium 500 Mg Vial) 500 mg IVPUSH BID [facility] Stop: 08/22/21 13:29 Last Admin: 08/21/21 20:32 Dose: 500 mg Documented by: TISH Amitriptyline HCl (Amitriptyline Hcl 50 Mg Tablet) 50 mg PO DAILY [facility] Last Admin: 08/21/21 09:35 Dose: 50 mg Documented by: JORDIN Amitriptyline HCl (Amitriptyline Hcl 50 Mg Tablet) 150 mg PO BEDTIME [facility] Last Admin: 08/21/21 20:32 Dose: 150 mg Documented by: TISH Ascorbic Acid (Ascorbic Acid 500 Mg Tablet) 500 mg PO DAILY [facility] Last Admin: 08/21/21 09:35 Dose: 500 mg Documented by: JORDIN Atorvastatin Calcium (Atorvastatin Calcium 80 Mg Tablet) 80 mg PO DAILY [facility] Last Admin: 08/21/21 09:35 Dose: 80 mg Documented by: JORDIN Cefuroxime Axetil (Cefuroxime Axetil 250 Mg Tablet) 250 mg PO Q12H [facility] Stop: 08/26/21 07:59 Last Admin: 08/21/21 20:33 Dose: 250 mg Documented by: TISH Dextrose (Dextrose 50 % 25 Gm/50 Ml Syringe) 25 gm IVPUSH Q15M PRN; Protocol PRN Reason: per Hypoglycemia Standing Ord. Glucose (Glucose Gel 15 Gm Gel..Gram.) 15 gm PO Q15M PRN; Protocol PRN Reason: per Hypoglycemia Standing Ord. Hydralazine HCl (Hydralazine Hcl 25 Mg Tablet) 25 mg PO TID [facility]; Protocol Last Admin: 08/21/21 20:33 Dose: 25 mg Documented by: TISH Remdesivir 100 mg/ Sodium (Chloride) 230 mls @ 115 mls/hr IV Q24H [facility] Stop: 08/24/21 14:59 Last Infusion: 08/21/21 17:09 Dose: 0 mls/hr Documented by: JORDIN Insulin Human Lispro (Insulin Lispro 100 Unit/Ml 3 Ml Vial) 0 unit SUBCUT QIDACHS [facility]; Protocol Last Admin: 08/22/21 08:09 Dose: Not Given Documented by: JORDIN Non-Admin Reason: No Insulin Coverage Isosorbide Mononitrate (Isosorbide Mononitrate 60 Mg Tab.Er.24h) 60 mg PO DAILY [facility]; Protocol Last Admin: 08/21/21 09:34 Dose: 60 mg Documented by: JORDIN Metolazone (Metolazone 5 Mg Tablet) 5 mg PO DAILY [facility] Last Admin: 08/21/21 09:34 Dose: 5 mg Documented by: JORDIN Metoprolol Succinate (Metoprolol Succinate Er 25 Mg Tab.Er.24h) 25 mg PO DAILY [facility]; Protocol Last Admin: 08/21/21 09:35 Dose: 25 mg Documented by: JORDIN Omeprazole (Omeprazole 40 Mg Capsule.Dr) 40 mg PO DAILY@0630 [facility] Last Admin: 08/22/21 06:00 Dose: 40 mg Documented by: JOSE Pharmacy Consult (Consult Rx Perform Med Rec) 1 each MISCELLANE ONCE PRN PRN Reason: Consult order Pharmacy Consult (Consult Rx Perform Med Rec) 1 each MISCELLANE ONCE PRN PRN Reason: Consult order Potassium Chloride (Potassium Chloride Er 20 Meq Tab.Er.Prt) 40 meq PO BID [facility] Last Admin: 08/21/21 20:32 Dose: 40 meq Documented by: TISH Senna (Sennosides 8.6 Mg Tablet) 17.2 mg PO BEDTIME PRN PRN Reason: Constipation Sodium Chloride (0.9 % Sodium Chloride Flush 3 Ml Syringe) 3 ml IVFLUSH QSHIFT [facility] Last Admin: 08/21/21 20:33 Dose: 3 ml Documented by: TISH Warfarin Sodium (Warfarin Sodium 2.5 Mg Tablet) 2.5 mg PO MoTuWeThFrSa@1800 [facility] Warfarin Sodium (Warfarin Sodium 5 Mg Tablet) 5 mg PO Carrillo@1800 [facility] Labs CBC & Chem 7: 08/22/21 06:13 08/22/21 06:13 Labs: Laboratory Results - last 24 hr 08/21/21 08/21/21 08/21/21 11:21 16:05 18:55 MCV MCH MCHC RDW Plt Count MPV Absolute Nucleated RBC Nucleated RBC % (auto) Anion Gap Estim Creat Clear Calc Estimated GFR POC Glucose 206 H 201 H 198 H Fasting Glucose Calcium C-Reactive Protein 08/22/21 08/22/21 08/22/21 06:13 06:13 07:26 MCV 93.9 MCH 29.1 MCHC 31.0 RDW 17.1 H Plt Count 291 MPV 9.2 L Absolute Nucleated RBC 0.000 Nucleated RBC % (auto) 0.0 Anion Gap 13 Estim Creat Clear Calc 50.2 Estimated GFR 35 POC Glucose 136 H Fasting Glucose 134 H Calcium 7.9 L C-Reactive Protein 2.65 H Assessment and Plan (1) Hypoxia: Status: Acute Plan 61-year-old male presented to the ED with difficulty draining his catheter, found to be COVID positive, found to have E coli bacturia, patient had a fall while in the ED and was briefly hypoxic. Acute on chronic hypoxic respiratory failure Brief episode, now back to baseline O2, unlikely due to COVID Was probably pain related from fall Wean O2 as tolerated for a saturation of low 90s Metabolic encephalopathy unremarkable repeat head CT probably related to obesity/darlene Monitor COVID ID appreciated remdisivir day 3 of 5 Bacteriuria Empirically treated with cefuroxime Urinary retention Continue Camilo, minimal hematuria Will rechallenge with Coumadin in about 1 week CKD IV stable DM insulin DARLENE cpap morbid obesity weight loss CAD statin coumadin on hold metabolic alkalosis hold torsemide, start diamox, montior chronic diastolic chf diamox, metolazone htn hydralazine imdur toprol chronic afib coumadin on hold toprol history of CVA statin restart coumadin in about 1 week Quality Stroke Does the patient have a stroke diagnosis?: No VTE Prior VTE?: No VTE Risk Level:: Medical - moderate - high VTE Device Contraindication: N/A - Device Ordered VTE Drug Contraindication: Treatment Not Tolerated
[2021-08-22] MEDS: metOLazone 5 MG TABLET PO (11:17)
[2021-08-22] MEDS: Potassium Chloride ER 20 MEQ TAB.ER.PRT 40 MEQ PO ×2 (11:17→20:49)
[2021-08-22] MEDS: Isosorbide Mononitrate 60 MG TAB.ER.24H PO (11:17)
[2021-08-22] MEDS: Atorvastatin Calcium 80 MG TABLET PO (11:17)
[2021-08-22] MEDS: hydrALAZINE HCl 25 MG TABLET PO ×3 (11:17→20:49)
[2021-08-22] MEDS: acetaZOLAMIDE sodium 500 MG VIAL IVPUSH (11:17)
[2021-08-22] MEDS: Amitriptyline HCl 50 MG TABLET PO (11:18)
[2021-08-22] MEDS: Metoprolol Succinate ER 25 MG TAB.ER.24H PO (11:18)
[2021-08-22] MEDS: Ascorbic Acid 500 MG TABLET PO (11:18)
[2021-08-22] MEDS: 0.9 % Sodium Chloride Flush 3 ML SYRINGE IVFLUSH ×3 (11:18→20:51)
[2021-08-22 11:22] LABS: Glucose, Whole Blood 196 mg/dL (60-115)
[2021-08-22] MEDS: Insulin Lispro 100 UNIT/ML 3 ML VIAL SUBCUT ×3 (12:24→21:17)
[2021-08-22] MEDS: Remdesivir 100 MG in 0.9 % Sodium Chloride 230 ML IV (12:24)
[2021-08-22 15:46] LABS: Glucose, Whole Blood 177 mg/dL (60-115)
[2021-08-22 20:42] LABS: Glucose, Whole Blood 168 mg/dL (60-115)
[2021-08-22] MEDS: Amitriptyline HCl 50 MG TABLET 150 MG PO (20:49)
[2021-08-23] VITALS (7 sets, daily range): BP systolic 108–119; BP diastolic 59–72; PULSE 57–87; RESP 16–20; TEMP 36.3–37.2; O2SAT 93–99
[2021-08-23] MEDS: Omeprazole 40 MG CAPSULE.DR PO (05:45)
[2021-08-23 06:32] LABS: Hematocrit 30.7 % (42.0-52.0); Hemoglobin 9.5 g/dl (14.0-18.0); Mean Corpuscular HGB Conc 30.9 g/dl (31.0-36.0); Mean Corpuscular Hemoglobin 28.8 pg (27.0-33.0); Mean Platelet Volume 9.1 fL (9.4-12.4); Platelet Count 285 X10*3/uL (160-400); Red Cell Distribution Width 16.8 % (11.0-16.0); White Blood Count 10.8 X10*3/uL (4.8-10.8)
[2021-08-23 06:57] LABS: Anion Gap 9 (12-20); Blood Urea Nitrogen 55 mg/dL (9-16); Calcium 7.8 mg/dL (8.4-10.2); Carbon Dioxide 27 mmol/L (22-29); Chloride 104 mmol/L (96-108); Creatinine Clr Calc Pharmacy 61.6; Estimated Glomerular Filt Rate 44; Glucose Fasting 131 mg/dL (60-99); Potassium 3.2 mmol/L (3.3-5.1); Sodium 137 mmol/L (135-145)
[2021-08-23 07:24] LABS: Glucose, Whole Blood 122 mg/dL (60-115)
[2021-08-23] MEDS: Isosorbide Mononitrate 60 MG TAB.ER.24H PO (09:10)
[2021-08-23] MEDS: Potassium Chloride ER 20 MEQ TAB.ER.PRT 40 MEQ PO ×2 (09:10→20:21)
[2021-08-23] MEDS: Ascorbic Acid 500 MG TABLET PO (09:10)
[2021-08-23] MEDS: 0.9 % Sodium Chloride Flush 3 ML SYRINGE IVFLUSH ×3 (09:10→20:22)
[2021-08-23] MEDS: Atorvastatin Calcium 80 MG TABLET PO (09:11)
[2021-08-23] MEDS: Amitriptyline HCl 50 MG TABLET PO (09:11)
[2021-08-23] MEDS: Metoprolol Succinate ER 25 MG TAB.ER.24H PO (09:11)
[2021-08-23] MEDS: metOLazone 5 MG TABLET PO (09:11)
--- NOTE | 2021-08-23 10:18 | P.PNIM_ITS ---
Subjective Subjective Date of Service: 08/23/21 Interval History: cc: difficulty draining catheter, fall in ED with brief episode of hypoxia interval history: no complaints Cardiovascular Cardiovascular: Reports no additional cardiovascular complaints Respiratory Respiratory: Reports no additional respiratory complaints Physical Exam Vital Signs: Vital Signs: Last Vital Signs Temp 97.4 F 08/23/21 08:00 Pulse 63 08/23/21 08:00 Resp 16 08/23/21 08:00 BP 109/70 08/23/21 08:00 Pulse Ox 99 08/23/21 08:00 Oxygen Flow Rate 2 08/18/21 09:23 BMI result Body Mass Index 33.5 General: easily rousable Resp:? diminihsed bilateral, no accessory muscles used CVS: S1,S2,RRR GI: soft, non tender, non distended Neuro:? easily rousable Psych: flat affect, impaired insight? Objective Data Active Medications Acetaminophen (Acetaminophen 325 Mg Tablet) 650 mg PO Q6H PRN PRN Reason: Pain, Mild (Pain Scale 1-3) Last Admin: 08/20/21 08:10 Dose: 650 mg Documented by: ANJU Amitriptyline HCl (Amitriptyline Hcl 50 Mg Tablet) 50 mg PO DAILY [facility] Last Admin: 08/23/21 09:11 Dose: 50 mg Documented by: BILL Amitriptyline HCl (Amitriptyline Hcl 50 Mg Tablet) 150 mg PO BEDTIME [facility] Last Admin: 08/22/21 20:49 Dose: 150 mg Documented by: CATHIRISMichelle Ascorbic Acid (Ascorbic Acid 500 Mg Tablet) 500 mg PO DAILY [facility] Last Admin: 08/23/21 09:10 Dose: 500 mg Documented by: BILL Atorvastatin Calcium (Atorvastatin Calcium 80 Mg Tablet) 80 mg PO DAILY [facility] Last Admin: 08/23/21 09:11 Dose: 80 mg Documented by: BILL Cefuroxime Axetil (Cefuroxime Axetil 250 Mg Tablet) 250 mg PO Q12H [facility] Stop: 08/26/21 07:59 Last Admin: 08/23/21 09:11 Dose: 250 mg Documented by: BILL Dextrose (Dextrose 50 % 25 Gm/50 Ml Syringe) 25 gm IVPUSH Q15M PRN; Protocol PRN Reason: per Hypoglycemia Standing Ord. Glucose (Glucose Gel 15 Gm Gel..Gram.) 15 gm PO Q15M PRN; Protocol PRN Reason: per Hypoglycemia Standing Ord. Hydralazine HCl (Hydralazine Hcl 25 Mg Tablet) 25 mg PO TID [facility]; Protocol Last Admin: 08/23/21 09:11 Dose: Not Given Documented by: BILL Non-Admin Reason: Decreased Blood Pressure Remdesivir 100 mg/ Sodium (Chloride) 230 mls @ 115 mls/hr IV Q24H [facility] Stop: 08/24/21 14:59 Last Infusion: 08/22/21 15:22 Dose: 0 mls/hr Documented by: JORDIN Insulin Human Lispro (Insulin Lispro 100 Unit/Ml 3 Ml Vial) 0 unit SUBCUT QIDACHS [facility]; Protocol Last Admin: 08/23/21 07:46 Dose: Not Given Documented by: BILL Non-Admin Reason: No Insulin Coverage Isosorbide Mononitrate (Isosorbide Mononitrate 60 Mg Tab.Er.24h) 60 mg PO DAILY [facility]; Protocol Last Admin: 08/23/21 09:10 Dose: 60 mg Documented by: BILL Metolazone (Metolazone 5 Mg Tablet) 5 mg PO DAILY [facility] Last Admin: 08/23/21 09:11 Dose: 5 mg Documented by: BILL Metoprolol Succinate (Metoprolol Succinate Er 25 Mg Tab.Er.24h) 25 mg PO DAILY [facility]; Protocol Last Admin: 08/23/21 09:11 Dose: 25 mg Documented by: BILL Omeprazole (Omeprazole 40 Mg Capsule.Dr) 40 mg PO DAILY@0630 [facility] Last Admin: 08/23/21 05:45 Dose: 40 mg Documented by: LUPILLO Pharmacy Consult (Consult Rx Perform Med Rec) 1 each MISCELLANE ONCE PRN PRN Reason: Consult order Pharmacy Consult (Consult Rx Perform Med Rec) 1 each MISCELLANE ONCE PRN PRN Reason: Consult order Potassium Chloride (Potassium Chloride Er 20 Meq Tab.Er.Prt) 40 meq PO BID [facility] Last Admin: 08/23/21 09:10 Dose: 40 meq Documented by: BILL Senna (Sennosides 8.6 Mg Tablet) 17.2 mg PO BEDTIME PRN PRN Reason: Constipation Sodium Chloride (0.9 % Sodium Chloride Flush 3 Ml Syringe) 3 ml IVFLUSH QSHIFT [facility] Last Admin: 08/23/21 09:10 Dose: 3 ml Documented by: BILL Warfarin Sodium (Warfarin Sodium 2.5 Mg Tablet) 2.5 mg PO MoTuWeThFrSa@1800 [facility] Warfarin Sodium (Warfarin Sodium 5 Mg Tablet) 5 mg PO Carrillo@1800 [facility] Labs CBC & Chem 7: 08/23/21 06:09 08/23/21 06:09 Labs: Laboratory Results - last 24 hr 08/22/21 08/22/21 08/22/21 11:02 15:16 19:53 MCV MCH MCHC RDW Plt Count MPV Absolute Nucleated RBC Nucleated RBC % (auto) Anion Gap Estim Creat Clear Calc Estimated GFR POC Glucose 196 H 177 H 168 H Fasting Glucose Calcium 08/23/21 08/23/21 08/23/21 06:09 06:09 07:05 MCV 93.0 MCH 28.8 MCHC 30.9 L RDW 16.8 H Plt Count 285 MPV 9.1 L Absolute Nucleated RBC 0.000 Nucleated RBC % (auto) 0.0 Anion Gap 9 L Estim Creat Clear Calc 61.6 Estimated GFR 44 POC Glucose 122 H Fasting Glucose 131 H Calcium 7.8 L Assessment and Plan (1) Hypoxia: Status: Acute Plan 61-year-old male presented to the ED with difficulty draining his catheter, found to be COVID positive, found to have E coli bacturia, patient had a fall while in the ED and was briefly hypoxic. Acute on chronic hypoxic respiratory failure Brief episode, now back to baseline O2, unlikely due to COVID Was probably pain related from fall Metabolic encephalopathy resolved unremarkable repeat head CT probably related to obesity/darlene Monitor COVID ID appreciated remdisivir day 4 of 5 Bacteriuria Empirically treated with cefuroxime Urinary retention Continue Camilo CKD IV stable DM insulin DARLENE cpap morbid obesity weight loss CAD statin coumadin metabolic alkalosis resolved chronic diastolic chf torsemide, metolazone htn hydralazine imdur toprol chronic afib Will rechallenge with Coumadin, starting today, monitor inr, monitor for hematuria toprol history of CVA statin coumadin Quality Stroke Does the patient have a stroke diagnosis?: No VTE Prior VTE?: No VTE Risk Level:: Medical - moderate - high VTE Device Contraindication: N/A - Device Ordered VTE Drug Contraindication: Treatment Not Tolerated
[2021-08-23 11:10] LABS: Glucose, Whole Blood 165 mg/dL (60-115)
--- NOTE | 2021-08-23 11:12 | P.CDIC_ITS ---
CDI Concurrent Query Documentation Clarification: PHYSICIAN'S DOCUMENTATION REQUEST Date of Query: 08/23/21 1112 Patient Name: Vineet Rubalcava Admit Date: 08/19/21 Dear Doctor, A review of the medical record indicates additional documentation may be needed. Please review below and update the documentation accordingly. Risk Factors/Clinical Indicators/Treatments Potassium level 3.1 on 08/19/21 Klor-Con 40 meq BID ordered Potassium level 3.5 on 08/20/21 Based on the above, could you clarify in the Progress Notes the appropriate diagnosis, if significant, that supports the above abnormalities and additional evaluation, monitoring, and/or treatment rendered: * Labs indicate a diagnosis of (please specify) * Other (please specify) * Unable to determine Use of terms such as suspected, likely, concern for, or probable (associated with a specific diagnosis that is being evaluated, monitored, or treated as if it exists) are acceptable and can be coded in the inpatient setting, when documented at the time of discharge. Thank you, Le Loya RN Extension: [phone] Please use your independent medical judgment in providing your response. THIS QUERY IS PART OF THE PERMANENT MEDICAL RECORD Provider Response: Other Other Diagnosis: hypokalemia
[2021-08-23] MEDS: Insulin Lispro 100 UNIT/ML 3 ML VIAL SUBCUT ×2 (13:04→16:50)
[2021-08-23] MEDS: Remdesivir 100 MG in 0.9 % Sodium Chloride 230 ML 115 MG IV (14:29)
[2021-08-23] MEDS: hydrALAZINE HCl 25 MG TABLET PO ×2 (14:29→20:21)
[2021-08-23 15:36] LABS: Glucose, Whole Blood 151 mg/dL (60-115)
[2021-08-23] MEDS: Warfarin Sodium 2.5 MG TABLET PO (16:50)
[2021-08-23 19:47] LABS: Glucose, Whole Blood 143 mg/dL (60-115)
[2021-08-23] MEDS: Amitriptyline HCl 50 MG TABLET 150 MG PO (20:21)
[2021-08-23] MEDS: Torsemide 20 MG TABLET 100 MG PO (20:21)
[2021-08-24 04:00] VITALS: BP 116/68; PULSE 60; RESP 18; TEMP 36.6; O2SAT 95
[2021-08-24] MEDS: Omeprazole 40 MG CAPSULE.DR PO (06:03)
[2021-08-24 06:51] LABS: Hematocrit 30.1 % (42.0-52.0); Hemoglobin 9.7 g/dl (14.0-18.0); Mean Corpuscular HGB Conc 32.2 g/dl (31.0-36.0); Mean Corpuscular Hemoglobin 30.1 pg (27.0-33.0); Mean Corpuscular Volume 93.5 fL (80.0-98.0); Mean Platelet Volume 9.2 fL (9.4-12.4); Platelet Count 256 X10*3/uL (160-400); Red Blood Count 3.22 X10*6/uL (4.60-5.80); Red Cell Distribution Width 16.8 % (11.0-16.0); White Blood Count 11.1 X10*3/uL (4.8-10.8)
[2021-08-24 07:09] VITALS: BP 124/84; PULSE 69; RESP 20; TEMP 36.4; O2SAT 97
[2021-08-24 07:09] LABS: Anion Gap 12 (12-20); Blood Urea Nitrogen 43 mg/dL (9-16); Calcium 7.7 mg/dL (8.4-10.2); Carbon Dioxide 21 mmol/L (22-29); Chloride 105 mmol/L (96-108); Creatinine Clr Calc Pharmacy 71.8; Estimated Glomerular Filt Rate 52; Glucose Fasting 116 mg/dL (60-99); INTERNATIONAL NORM RATIO 1.5 (0.9-1.1); Potassium 3.3 mmol/L (3.3-5.1); Prothrombin Time 16.6 SEC (9.9-13.0); Sodium 135 mmol/L (135-145)
[2021-08-24] MEDS: 0.9 % Sodium Chloride Flush 3 ML SYRINGE IVFLUSH ×2 (07:33→16:16)
[2021-08-24 07:38] LABS: Glucose, Whole Blood 114 mg/dL (60-115)
[2021-08-24] MEDS: Torsemide 20 MG TABLET 100 MG PO ×2 (09:40→21:15)
[2021-08-24] MEDS: Atorvastatin Calcium 80 MG TABLET PO (09:41)
[2021-08-24] MEDS: Metoprolol Succinate ER 25 MG TAB.ER.24H PO (09:41)
[2021-08-24] MEDS: Ascorbic Acid 500 MG TABLET PO (09:41)
[2021-08-24] MEDS: hydrALAZINE HCl 25 MG TABLET PO ×2 (09:41→16:16)
[2021-08-24] MEDS: Potassium Chloride ER 20 MEQ TAB.ER.PRT 40 MEQ PO ×2 (09:41→21:14)
[2021-08-24] MEDS: metOLazone 5 MG TABLET PO (09:41)
[2021-08-24] MEDS: Amitriptyline HCl 50 MG TABLET PO (09:41)
[2021-08-24] MEDS: Isosorbide Mononitrate 60 MG TAB.ER.24H PO (09:42)
--- NOTE | 2021-08-24 10:32 | PC.NURSE ---
Addendum entered by Chastity Ruiz RN 08/24/21 10:35: Wounds present on admission. Original Note: Skin/wound assessment completed today. Patient has Stage 2 to bilateral buttocks and coccyx with a small stage 3 in center of stage 2 coccyx pressure ulcer. Cleansed with wound cleanser, silver alginate applied covered with foam dressing. Airloss mattress ordered, also turning and repositioning q 2 hr with wedge to be used to keep him on his side.
[2021-08-24 11:12] VITALS: BP 132/75; PULSE 66; RESP 20; TEMP 36.7; O2SAT 98
[2021-08-24 11:26] LABS: Glucose, Whole Blood 162 mg/dL (60-115)
--- NOTE | 2021-08-24 11:56 | HO.PM.IMPN ---
Subjective Subjective Date of Service: 08/24/21 Interval History: the patient was seen and evaluated this morning Laying in bed, feels comfortable for all On baseline home oxygen Denies any fever, chills or shortness of breath No reported other overnight events. Systemic review: No fever, chills or weakness No chest pain, palpitation No shortness of breath or coughing No abdominal pain, nausea or vomiting No urinary symptoms, no hematuria No any rash or wounds Physical Exam Vital Signs: Vital Signs: Last Vital Signs Temp 98.0 F 08/24/21 11:12 Pulse 66 08/24/21 11:12 Resp 20 08/24/21 11:12 BP 132/75 08/24/21 11:12 Pulse Ox 98 08/24/21 11:12 Oxygen Flow Rate 2 08/18/21 09:23 BMI result Body Mass Index 33.5 Const: Other: Constitutional : Alert, oriented, not in distress Neck : Normal inspection, Supple Cardiovascular : RRR, S1 S2, no lower extremity edema Respiratory : Good bilateral air entry, no crackles, wheezes or rhonchi Gastrointestinal: soft, lax, Normal bowel sounds, Non tender Skin : Warm, Dry, urine is clear Neurological : Alert & oriented x3, No focal deficit Objective Data Active Medications Acetaminophen (Acetaminophen 325 Mg Tablet) 650 mg PO Q6H PRN PRN Reason: Pain, Mild (Pain Scale 1-3) Last Admin: 08/20/21 08:10 Dose: 650 mg Documented by: ANJU Amitriptyline HCl (Amitriptyline Hcl 50 Mg Tablet) 50 mg PO DAILY [facility] Last Admin: 08/24/21 09:41 Dose: 50 mg Documented by: CARLITOS Amitriptyline HCl (Amitriptyline Hcl 50 Mg Tablet) 150 mg PO BEDTIME [facility] Last Admin: 08/23/21 20:21 Dose: 150 mg Documented by: MARIZOL Ascorbic Acid (Ascorbic Acid 500 Mg Tablet) 500 mg PO DAILY [facility] Last Admin: 08/24/21 09:41 Dose: 500 mg Documented by: CARLITOS Atorvastatin Calcium (Atorvastatin Calcium 80 Mg Tablet) 80 mg PO DAILY [facility] Last Admin: 08/24/21 09:41 Dose: 80 mg Documented by: CARLITOS Cefuroxime Axetil (Cefuroxime Axetil 250 Mg Tablet) 250 mg PO Q12H [facility] Stop: 08/26/21 07:59 Last Admin: 08/24/21 07:29 Dose: 250 mg Documented by: CARLITOS Dextrose (Dextrose 50 % 25 Gm/50 Ml Syringe) 25 gm IVPUSH Q15M PRN; Protocol PRN Reason: per Hypoglycemia Standing Ord. Glucose (Glucose Gel 15 Gm Gel..Gram.) 15 gm PO Q15M PRN; Protocol PRN Reason: per Hypoglycemia Standing Ord. Hydralazine HCl (Hydralazine Hcl 25 Mg Tablet) 25 mg PO TID [facility]; Protocol Last Admin: 08/24/21 09:41 Dose: 25 mg Documented by: CARLITOS Remdesivir 100 mg/ Sodium (Chloride) 230 mls @ 115 mls/hr IV Q24H [facility] Stop: 08/24/21 14:59 Last Infusion: 08/23/21 16:50 Dose: 0 mls/hr Documented by: BILL Insulin Human Lispro (Insulin Lispro 100 Unit/Ml 3 Ml Vial) 0 unit SUBCUT QIDACHS [facility]; Protocol Last Admin: 08/24/21 08:47 Dose: Not Given Documented by: CARLITOS Non-Admin Reason: No Insulin Coverage Isosorbide Mononitrate (Isosorbide Mononitrate 60 Mg Tab.Er.24h) 60 mg PO DAILY [facility]; Protocol Last Admin: 08/24/21 09:42 Dose: 60 mg Documented by: CARLITOS Metolazone (Metolazone 5 Mg Tablet) 5 mg PO DAILY [facility] Last Admin: 08/24/21 09:41 Dose: 5 mg Documented by: CARLITOS Metoprolol Succinate (Metoprolol Succinate Er 25 Mg Tab.Er.24h) 25 mg PO DAILY [facility]; Protocol Last Admin: 08/24/21 09:41 Dose: 25 mg Documented by: CARLITOS Omeprazole (Omeprazole 40 Mg Capsule.Dr) 40 mg PO DAILY@0630 [facility] Last Admin: 08/24/21 06:03 Dose: 40 mg Documented by: MARIZOL Pharmacy Consult (Consult Rx Perform Med Rec) 1 each MISCELLANE ONCE PRN PRN Reason: Consult order Pharmacy Consult (Consult Rx Perform Med Rec) 1 each MISCELLANE ONCE PRN PRN Reason: Consult order Potassium Chloride (Potassium Chloride Er 20 Meq Tab.Er.Prt) 40 meq PO BID [facility] Last Admin: 08/24/21 09:41 Dose: 40 meq Documented by: CARLITOS Senna (Sennosides 8.6 Mg Tablet) 17.2 mg PO BEDTIME PRN PRN Reason: Constipation Sodium Chloride (0.9 % Sodium Chloride Flush 3 Ml Syringe) 3 ml IVFLUSH QSHIFT [facility] Last Admin: 08/24/21 07:33 Dose: 3 ml Documented by: CARLITOS Torsemide (Torsemide 20 Mg Tablet) 100 mg PO BID [facility]; Protocol Last Admin: 08/24/21 09:40 Dose: 100 mg Documented by: CARLITOS Warfarin Sodium (Warfarin Sodium 2.5 Mg Tablet) 2.5 mg PO MoTuWeThFrSa@1800 [facility] Last Admin: 08/23/21 16:50 Dose: 2.5 mg Documented by: BILL Warfarin Sodium (Warfarin Sodium 5 Mg Tablet) 5 mg PO Carrillo@1800 [facility] Labs CBC & Chem 7: 08/24/21 06:42 08/24/21 06:42 Labs: Laboratory Results - last 24 hr 08/23/21 08/23/21 08/24/21 15:10 19:38 06:42 MCV 93.5 MCH 30.1 MCHC 32.2 RDW 16.8 H Plt Count 256 MPV 9.2 L Absolute Nucleated RBC 0.000 Nucleated RBC % (auto) 0.0 PT INR Anion Gap Estim Creat Clear Calc Estimated GFR POC Glucose 151 H 143 H Fasting Glucose Calcium 08/24/21 08/24/21 08/24/21 06:42 06:42 07:08 MCV MCH MCHC RDW Plt Count MPV Absolute Nucleated RBC Nucleated RBC % (auto) PT 16.6 H INR 1.5 H Anion Gap 12 Estim Creat Clear Calc 71.8 Estimated GFR 52 POC Glucose 114 Fasting Glucose 116 H Calcium 7.7 L 08/24/21 11:10 MCV MCH MCHC RDW Plt Count MPV Absolute Nucleated RBC Nucleated RBC % (auto) PT INR Anion Gap Estim Creat Clear Calc Estimated GFR POC Glucose 162 H Fasting Glucose Calcium Microbiology Microbiology Results: Microbiology 08/18/21 13:33 Blood Culture - Final Blood - Venous No growth after 5 days. 08/18/21 13:33 Blood Culture - Final Blood - Venous No growth after 5 days. Assessment and Plan (1) SARS-CoV-2 positive: Status: Acute (2) Acute urinary retention: Status: Acute Plan 61-year-old male presented to the ED with difficulty draining his catheter, found to be COVID positive, found to have E coli bacturia, patient had a fall while in the ED and was briefly hypoxic. Acute on chronic hypoxic respiratory failure Brief episode, now back to baseline O2, unlikely due to COVID Was probably pain related from fall Metabolic encephalopathy resolved unremarkable repeat head CT probably related to obesity/darlene Monitor COVID ID appreciated remdisivir day 5 of 5 Bacteriuria no symptoms of UTI, not septic Urine culture growing E coli and Enterococcus F Discussed with ID, likely contaminant Empirically treated with cefuroxime Discussed with Urology, to change the Camilo catheter Urinary retention Continue Camilo CKD IV stable DM insulin DARLENE cpap morbid obesity weight loss CAD statin coumadin metabolic alkalosis resolved chronic diastolic chf torsemide, metolazone htn hydralazine imdur toprol chronic afib Restart Coumadin, monitor inr, monitor for hematuria toprol history of CVA statin coumadin DVT PPX Warfarin Quality Stroke Does the patient have a stroke diagnosis?: No VTE Prior VTE?: No VTE Risk Level:: Medical - moderate - high VTE Device Contraindication: N/A - Device Ordered VTE Drug Contraindication: Treatment Not Tolerated
--- NOTE | 2021-08-24 12:02 | MHC.CLN ---
F/U PT WITH INCREASED NUTRITION RISK R/T PRESSURE INJURY PO INTAKE 75-100% (08/22-08/24) DIET RX: 2200DM 2GM NA-APPROPRIATE PT RECEIVING GLUCERNA TID TO PROMOTE WOUND HEALING SUPP TO PROVIDE 711KCALS, 30G PROTEIN MONITOR PO INTAKE CLOSELY
--- NOTE | 2021-08-24 12:13 | MHC.CM.PN ---
Patient is not yet medically cleared for dc (IV Remdesivir); STR at [facility] is the goal; [facility] can review again on 08/29/21, when Patient will be considered Covid recovered. CM will follow.
[2021-08-24 12:37] LABS: Appearance Urine CLEAR; Color Urine YELLOW; Glucose Urine UA NEG (NEG); Leukocyte Esterase Urine 1+ (NEG); Nitrite Urine NEG (NEG); PH 6.5 (5.0-8.0); Specific Gravity - Urine 1.015 (1.005-1.025); UACC Culture Trigger YES; Urine Blood 2+ (NEG); Urine Ketones NEG (NEG); Urine Protein NEG (NEG-TRACE)
[2021-08-24] MEDS: Insulin Lispro 100 UNIT/ML 3 ML VIAL SUBCUT ×2 (12:42→21:14)
[2021-08-24 13:14] LABS: Bacteria Urine 1+ /LPF
--- NOTE | 2021-08-24 14:42 | PC.NURSE ---
pharmacy called approx 2pm for remdesivir, not available in pyxis. Still unavailable
[2021-08-24 15:34] VITALS: BP 114/66; PULSE 58; RESP 16; TEMP 36.6; O2SAT 98
[2021-08-24] MEDS: Remdesivir 100 MG in 0.9 % Sodium Chloride 230 ML 115 MG IV (16:16)
[2021-08-24 16:47] LABS: Glucose, Whole Blood 134 mg/dL (60-115)
[2021-08-24] MEDS: Warfarin Sodium 2.5 MG TABLET PO (17:45)
[2021-08-24 20:00] VITALS: BP 108/58; PULSE 56; RESP 18; TEMP 36.6; O2SAT 93
[2021-08-24 20:31] LABS: Glucose, Whole Blood 169 mg/dL (60-115)
[2021-08-24] MEDS: Amitriptyline HCl 50 MG TABLET 150 MG PO (21:15)
[2021-08-25] VITALS (9 sets, daily range): BP systolic 109–132; BP diastolic 55–73; PULSE 56–78; RESP 18–20; TEMP 36.3–36.9; O2SAT 95–100
[2021-08-25] MEDS: Omeprazole 40 MG CAPSULE.DR PO (05:54)
[2021-08-25 06:04] LABS: Glucose, Whole Blood 111 mg/dL (60-115)
[2021-08-25 07:14] LABS: Glucose, Whole Blood 118 mg/dL (60-115)
[2021-08-25 07:30] LABS: Hematocrit 31.4 % (42.0-52.0); Hemoglobin 10.2 g/dl (14.0-18.0); Mean Corpuscular HGB Conc 32.5 g/dl (31.0-36.0); Mean Corpuscular Hemoglobin 29.5 pg (27.0-33.0); Mean Corpuscular Volume 90.8 fL (80.0-98.0); Platelet Count 301 X10*3/uL (160-400); Red Blood Count 3.46 X10*6/uL (4.60-5.80); Red Cell Distribution Width 16.7 % (11.0-16.0); White Blood Count 11.3 X10*3/uL (4.8-10.8)
[2021-08-25 07:36] LABS: INTERNATIONAL NORM RATIO 1.5 (0.9-1.1); Prothrombin Time 16.6 SEC (9.9-13.0)
[2021-08-25 07:49] LABS: Anion Gap 13 (12-20); Blood Urea Nitrogen 42 mg/dL (9-16); Calcium 8.1 mg/dL (8.4-10.2); Carbon Dioxide 24 mmol/L (22-29); Chloride 101 mmol/L (96-108); Creatinine Clr Calc Pharmacy 68.4; Estimated Glomerular Filt Rate 49; Glucose Random 113 mg/dL (60-115); Potassium 3.3 mmol/L (3.3-5.1); Sodium 135 mmol/L (135-145)
[2021-08-25] MEDS: hydrALAZINE HCl 25 MG TABLET PO ×3 (09:51→21:04)
[2021-08-25] MEDS: Torsemide 20 MG TABLET 100 MG PO ×2 (09:52→21:04)
[2021-08-25] MEDS: Ascorbic Acid 500 MG TABLET PO (09:52)
[2021-08-25] MEDS: Atorvastatin Calcium 80 MG TABLET PO (09:52)
[2021-08-25] MEDS: Amitriptyline HCl 50 MG TABLET PO (09:52)
[2021-08-25] MEDS: Potassium Chloride ER 20 MEQ TAB.ER.PRT 40 MEQ PO ×2 (09:52→21:03)
[2021-08-25] MEDS: 0.9 % Sodium Chloride Flush 3 ML SYRINGE IVFLUSH ×4 (09:53→21:08)
[2021-08-25] MEDS: Isosorbide Mononitrate 60 MG TAB.ER.24H PO (09:53)
[2021-08-25] MEDS: metOLazone 5 MG TABLET PO (09:57)
--- NOTE | 2021-08-25 10:40 | HO.PM.IMPN ---
Subjective Subjective Date of Service: 08/25/21 Interval History: the patient was seen and evaluated this morning Laying in bed, feels comfortable On baseline home oxygen, CPAP at night urine cleared Denies any fever, chills or shortness of breath No reported other overnight events. Systemic review: No fever, chills or weakness No chest pain, palpitation No shortness of breath or coughing No abdominal pain, nausea or vomiting No urinary symptoms, no hematuria No any rash or wounds Physical Exam Vital Signs: Vital Signs: Last Vital Signs Temp 98.3 F 08/25/21 07:41 Pulse 60 08/25/21 07:41 Resp 20 08/25/21 07:41 BP 121/70 08/25/21 07:41 Pulse Ox 100 08/25/21 07:41 Oxygen Flow Rate 2 08/18/21 09:23 BMI result Body Mass Index 33.5 Const: Other: Constitutional : Alert, oriented, not in distress Neck : Normal inspection, Supple Cardiovascular : RRR, S1 S2, no lower extremity edema Respiratory : Good bilateral air entry, no crackles, wheezes or rhonchi Gastrointestinal: soft, lax, Normal bowel sounds, Non tender Skin : Warm, Dry, urine is clear Neurological : Alert & oriented x3, No focal deficit Objective Data Active Medications Acetaminophen (Acetaminophen 325 Mg Tablet) 650 mg PO Q6H PRN PRN Reason: Pain, Mild (Pain Scale 1-3) Last Admin: 08/20/21 08:10 Dose: 650 mg Documented by: ANJU Amitriptyline HCl (Amitriptyline Hcl 50 Mg Tablet) 50 mg PO DAILY [facility] Last Admin: 08/25/21 09:52 Dose: 50 mg Documented by: CARLITOS Amitriptyline HCl (Amitriptyline Hcl 50 Mg Tablet) 150 mg PO BEDTIME [facility] Last Admin: 08/24/21 21:15 Dose: 150 mg Documented by: JONATHAN Ascorbic Acid (Ascorbic Acid 500 Mg Tablet) 500 mg PO DAILY [facility] Last Admin: 08/25/21 09:52 Dose: 500 mg Documented by: CARLITOS Atorvastatin Calcium (Atorvastatin Calcium 80 Mg Tablet) 80 mg PO DAILY [facility] Last Admin: 08/25/21 09:52 Dose: 80 mg Documented by: CARLITOS Cefuroxime Axetil (Cefuroxime Axetil 250 Mg Tablet) 250 mg PO Q12H [facility] Stop: 08/26/21 07:59 Last Admin: 08/25/21 09:53 Dose: 250 mg Documented by: CARLITOS Dextrose (Dextrose 50 % 25 Gm/50 Ml Syringe) 25 gm IVPUSH Q15M PRN; Protocol PRN Reason: per Hypoglycemia Standing Ord. Glucose (Glucose Gel 15 Gm Gel..Gram.) 15 gm PO Q15M PRN; Protocol PRN Reason: per Hypoglycemia Standing Ord. Hydralazine HCl (Hydralazine Hcl 25 Mg Tablet) 25 mg PO TID [facility]; Protocol Last Admin: 08/25/21 09:51 Dose: 25 mg Documented by: CARLITOS Insulin Human Lispro (Insulin Lispro 100 Unit/Ml 3 Ml Vial) 0 unit SUBCUT QIDACHS [facility]; Protocol Last Admin: 08/25/21 08:34 Dose: Not Given Documented by: CARLITOS Non-Admin Reason: No Insulin Coverage Isosorbide Mononitrate (Isosorbide Mononitrate 60 Mg Tab.Er.24h) 60 mg PO DAILY [facility]; Protocol Last Admin: 08/25/21 09:53 Dose: 60 mg Documented by: CARLITOS Metolazone (Metolazone 5 Mg Tablet) 5 mg PO DAILY [facility] Last Admin: 08/25/21 09:57 Dose: 5 mg Documented by: CARLITOS Metoprolol Succinate (Metoprolol Succinate Er 25 Mg Tab.Er.24h) 25 mg PO DAILY [facility]; Protocol Last Admin: 08/25/21 09:57 Dose: Not Given Documented by: CARLITOS Non-Admin Reason: pulse less than parameter Omeprazole (Omeprazole 40 Mg Capsule.Dr) 40 mg PO DAILY@0630 [facility] Last Admin: 08/25/21 05:54 Dose: 40 mg Documented by: SHAZIA Pharmacy Consult (Consult Rx Perform Med Rec) 1 each MISCELLANE ONCE PRN PRN Reason: Consult order Pharmacy Consult (Consult Rx Perform Med Rec) 1 each MISCELLANE ONCE PRN PRN Reason: Consult order Potassium Chloride (Potassium Chloride Er 20 Meq Tab.Er.Prt) 40 meq PO BID [facility] Last Admin: 08/25/21 09:52 Dose: 40 meq Documented by: CARLITOS Senna (Sennosides 8.6 Mg Tablet) 17.2 mg PO BEDTIME PRN PRN Reason: Constipation Sodium Chloride (0.9 % Sodium Chloride Flush 3 Ml Syringe) 3 ml IVFLUSH QSHIFT [facility] Last Admin: 08/25/21 09:53 Dose: 3 ml Documented by: CARLITOS Torsemide (Torsemide 20 Mg Tablet) 100 mg PO BID [facility]; Protocol Last Admin: 08/25/21 09:52 Dose: 100 mg Documented by: CARLITOS Warfarin Sodium (Warfarin Sodium 2.5 Mg Tablet) 2.5 mg PO MoTuWeThFrSa@1800 [facility] Last Admin: 08/24/21 17:45 Dose: 2.5 mg Documented by: JONATHAN Warfarin Sodium (Warfarin Sodium 5 Mg Tablet) 5 mg PO Carrillo@1800 [facility] Labs CBC & Chem 7: 08/25/21 07:01 08/25/21 07:01 Labs: Laboratory Results - last 24 hr 08/24/21 08/24/21 08/24/21 07:53 11:10 16:39 MCV MCH MCHC RDW Plt Count MPV Absolute Nucleated RBC Nucleated RBC % (auto) PT INR Anion Gap Estim Creat Clear Calc Estimated GFR POC Glucose 162 H 134 H Random Glucose Calcium Urine Color YELLOW Urine Appearance CLEAR Urine pH 6.5 Ur Specific [place] 1.015 Urine Protein NEG Urine Glucose (UA) NEG Urine Ketones NEG Urine Blood 2+ H Urine Nitrite NEG Ur Leukocyte Esterase 1+ H Urine RBC 5-9 H Urine WBC 5-9 H Ur Squamous Epith Cells NONE Urine Bacteria 1+ 08/24/21 08/25/21 08/25/21 20:24 06:00 07:01 MCV MCH MCHC RDW Plt Count MPV Absolute Nucleated RBC Nucleated RBC % (auto) PT 16.6 H INR 1.5 H Anion Gap Estim Creat Clear Calc Estimated GFR POC Glucose 169 H 111 Random Glucose Calcium Urine Color Urine Appearance Urine pH Ur Specific [place] Urine Protein Urine Glucose (UA) Urine Ketones Urine Blood Urine Nitrite Ur Leukocyte Esterase Urine RBC Urine WBC Ur Squamous Epith Cells Urine Bacteria 08/25/21 08/25/21 08/25/21 07:01 07:01 07:03 MCV 90.8 MCH 29.5 MCHC 32.5 RDW 16.7 H Plt Count 301 MPV 9.0 L Absolute Nucleated RBC 0.000 Nucleated RBC % (auto) 0.0 PT INR Anion Gap 13 Estim Creat Clear Calc 68.4 Estimated GFR 49 POC Glucose 118 H Random Glucose 113 Calcium 8.1 L Urine Color Urine Appearance Urine pH Ur Specific [place] Urine Protein Urine Glucose (UA) Urine Ketones Urine Blood Urine Nitrite Ur Leukocyte Esterase Urine RBC Urine WBC Ur Squamous Epith Cells Urine Bacteria Assessment and Plan (1) SARS-CoV-2 positive: Status: Acute (2) Acute urinary retention: Status: Acute Plan 61-year-old male presented to the ED with difficulty draining his catheter, found to be COVID positive, found to have E coli bacturia, patient had a fall while in the ED and was briefly hypoxic. Metabolic encephalopathy resolved unremarkable repeat head CT probably related to obesity/darlene Monitor Acute on chronic hypoxic respiratory failure,Resolved COVID ID appreciated remdisivir day 5 of 5 brief episode of hypoxia that resolved likely not from COVID Bacteriuria no symptoms of UTI, not septic Urine culture growing E coli and Enterococcus F Discussed with ID, likely contaminant Empirically treated with cefuroxime Discussed with Urology, to change the Camilo catheter Urinary retention Continue Camilo CKD IV stable DM insulin DARLENE cpap morbid obesity weight loss CAD statin coumadin metabolic alkalosis resolved chronic diastolic chf torsemide, metolazone htn hydralazine imdur toprol chronic afib Restart Coumadin, monitor inr, monitor for hematuria toprol history of CVA statin coumadin DVT PPX Warfarin Quality Stroke Does the patient have a stroke diagnosis?: No VTE Prior VTE?: No VTE Risk Level:: Medical - moderate - high VTE Device Contraindication: N/A - Device Ordered VTE Drug Contraindication: Treatment Not Tolerated
[2021-08-25 11:04] LABS: Glucose, Whole Blood 144 mg/dL (60-115)
--- NOTE | 2021-08-25 13:47 | MHC.CM.PN ---
Patient has a few SNFs that will consider him for admission on 08/28/21, when Patient is considered Covid recovered. has put in an order for Covid swab today; CM awaits results.
[2021-08-25 15:05] LABS: COVID-19 Test Negative (Negative)
[2021-08-25 16:12] LABS: Glucose, Whole Blood 168 mg/dL (60-115)
[2021-08-25] MEDS: Insulin Lispro 100 UNIT/ML 3 ML VIAL SUBCUT (17:01)
[2021-08-25] MEDS: Warfarin Sodium 2.5 MG TABLET PO (17:01)
[2021-08-25 19:47] LABS: Glucose, Whole Blood 144 mg/dL (60-115)
[2021-08-25] MEDS: Amitriptyline HCl 50 MG TABLET 150 MG PO (21:03)
[2021-08-26] VITALS (9 sets, daily range): BP systolic 110–134; BP diastolic 61–68; PULSE 64–84; RESP 14–20; TEMP 36.2–37.2; O2SAT 93–99
[2021-08-26 07:17] LABS: INTERNATIONAL NORM RATIO 1.4 (0.9-1.1); Prothrombin Time 16.4 SEC (9.9-13.0)
[2021-08-26 07:45] LABS: Glucose, Whole Blood 140 mg/dL (60-115)
[2021-08-26] MEDS: metOLazone 5 MG TABLET PO (08:57)
[2021-08-26] MEDS: Atorvastatin Calcium 80 MG TABLET PO (08:57)
[2021-08-26] MEDS: Potassium Chloride ER 20 MEQ TAB.ER.PRT 40 MEQ PO ×2 (08:57→20:34)
[2021-08-26] MEDS: Ascorbic Acid 500 MG TABLET PO (08:57)
[2021-08-26] MEDS: Amitriptyline HCl 50 MG TABLET PO (08:57)
[2021-08-26] MEDS: Isosorbide Mononitrate 60 MG TAB.ER.24H PO (08:57)
[2021-08-26] MEDS: 0.9 % Sodium Chloride Flush 3 ML SYRINGE IVFLUSH ×3 (08:58→20:38)
[2021-08-26] MEDS: hydrALAZINE HCl 25 MG TABLET PO ×3 (08:58→20:36)
[2021-08-26] MEDS: Torsemide 20 MG TABLET 100 MG PO ×2 (08:58→20:36)
[2021-08-26] MEDS: Metoprolol Succinate ER 25 MG TAB.ER.24H PO (08:58)
--- NOTE | 2021-08-26 11:12 | HO.PM.IMPN ---
Subjective Subjective Date of Service: 08/26/21 Interval History: the patient was seen and evaluated this morning Laying in bed, feels comfortable On baseline home oxygen, CPAP at night Denies any fever, chills or shortness of breath No reported other overnight events. Systemic review: No fever, chills or weakness No chest pain, palpitation No shortness of breath or coughing No abdominal pain, nausea or vomiting No urinary symptoms, no hematuria No any rash or wounds Physical Exam Vital Signs: Vital Signs: Last Vital Signs Temp 97.6 F 08/26/21 07:26 Pulse 64 08/26/21 09:37 Resp 18 08/26/21 08:35 BP 134/68 08/26/21 09:37 Pulse Ox 99 08/26/21 09:37 Oxygen Flow Rate 2 08/18/21 09:23 BMI result Body Mass Index 33.5 Const: Other: Constitutional : Alert, oriented, not in distress Neck : Normal inspection, Supple Cardiovascular : RRR, S1 S2, no lower extremity edema Respiratory : Good bilateral air entry, no crackles, wheezes or rhonchi Gastrointestinal: soft, lax, Normal bowel sounds, Non tender Skin : Warm, Dry, urine is clear Neurological : Alert & oriented x3, No focal deficit Objective Data Active Medications Acetaminophen (Acetaminophen 325 Mg Tablet) 650 mg PO Q6H PRN PRN Reason: Pain, Mild (Pain Scale 1-3) Last Admin: 08/20/21 08:10 Dose: 650 mg Documented by: ANJU Amitriptyline HCl (Amitriptyline Hcl 50 Mg Tablet) 50 mg PO DAILY [facility] Last Admin: 08/26/21 08:57 Dose: 50 mg Documented by: SHANNAN Amitriptyline HCl (Amitriptyline Hcl 50 Mg Tablet) 150 mg PO BEDTIME [facility] Last Admin: 08/25/21 21:03 Dose: 150 mg Documented by: DAVID Ascorbic Acid (Ascorbic Acid 500 Mg Tablet) 500 mg PO DAILY [facility] Last Admin: 08/26/21 08:57 Dose: 500 mg Documented by: SHANNAN Atorvastatin Calcium (Atorvastatin Calcium 80 Mg Tablet) 80 mg PO DAILY [facility] Last Admin: 08/26/21 08:57 Dose: 80 mg Documented by: SHANNAN Dextrose (Dextrose 50 % 25 Gm/50 Ml Syringe) 25 gm IVPUSH Q15M PRN; Protocol PRN Reason: per Hypoglycemia Standing Ord. Glucose (Glucose Gel 15 Gm Gel..Gram.) 15 gm PO Q15M PRN; Protocol PRN Reason: per Hypoglycemia Standing Ord. Hydralazine HCl (Hydralazine Hcl 25 Mg Tablet) 25 mg PO TID [facility]; Protocol Last Admin: 08/26/21 08:58 Dose: 25 mg Documented by: SHANNAN Insulin Human Lispro (Insulin Lispro 100 Unit/Ml 3 Ml Vial) 0 unit SUBCUT QIDACHS [facility]; Protocol Last Admin: 08/26/21 08:34 Dose: Not Given Documented by: SHANNAN Non-Admin Reason: No Insulin Coverage Isosorbide Mononitrate (Isosorbide Mononitrate 60 Mg Tab.Er.24h) 60 mg PO DAILY [facility]; Protocol Last Admin: 08/26/21 08:57 Dose: 60 mg Documented by: SHANNAN Metolazone (Metolazone 5 Mg Tablet) 5 mg PO DAILY [facility] Last Admin: 08/26/21 08:57 Dose: 5 mg Documented by: SHANNAN Metoprolol Succinate (Metoprolol Succinate Er 25 Mg Tab.Er.24h) 25 mg PO DAILY [facility]; Protocol Last Admin: 08/26/21 08:58 Dose: 25 mg Documented by: SHANNAN Omeprazole (Omeprazole 40 Mg Capsule.Dr) 40 mg PO DAILY@0630 [facility] Last Admin: 08/26/21 05:50 Dose: Not Given Documented by: DAVID Non-Admin Reason: Patient Refused Pharmacy Consult (Consult Rx Perform Med Rec) 1 each MISCELLANE ONCE PRN PRN Reason: Consult order Pharmacy Consult (Consult Rx Perform Med Rec) 1 each MISCELLANE ONCE PRN PRN Reason: Consult order Potassium Chloride (Potassium Chloride Er 20 Meq Tab.Er.Prt) 40 meq PO BID [facility] Last Admin: 08/26/21 08:57 Dose: 40 meq Documented by: SHANNAN Senna (Sennosides 8.6 Mg Tablet) 17.2 mg PO BEDTIME PRN PRN Reason: Constipation Sodium Chloride (0.9 % Sodium Chloride Flush 3 Ml Syringe) 3 ml IVFLUSH QSHIFT [facility] Last Admin: 08/26/21 08:58 Dose: 3 ml Documented by: SHANNAN Torsemide (Torsemide 20 Mg Tablet) 100 mg PO BID [facility]; Protocol Last Admin: 08/26/21 08:58 Dose: 100 mg Documented by: SHANNAN Warfarin Sodium (Warfarin Sodium 2.5 Mg Tablet) 2.5 mg PO MoTuWeThFrSa@1800 [facility] Last Admin: 08/25/21 17:01 Dose: 2.5 mg Documented by: LAZARUS Warfarin Sodium (Warfarin Sodium 5 Mg Tablet) 5 mg PO Carrillo@1800 [facility] Labs CBC & Chem 7: 08/25/21 07:01 08/25/21 07:01 Labs: Laboratory Results - last 24 hr 08/25/21 08/25/21 08/25/21 14:15 16:05 19:42 PT INR POC Glucose 168 H 144 H COVID-19 (POWER) Negative COVID-19 Clin Com See Note 08/26/21 08/26/21 06:43 07:31 PT 16.4 H INR 1.4 H POC Glucose 140 H COVID-19 (POWER) COVID-19 Clin Com Microbiology Microbiology Results: Microbiology 08/24/21 Unknown Urine Culture - Final Urine clean catch - Urine watkins top Enterococcus faecalis Assessment and Plan (1) SARS-CoV-2 positive: Status: Acute (2) Physical deconditioning: Status: Acute (3) Acute urinary retention: Status: Acute Plan 61-year-old male presented to the ED with difficulty draining his catheter, found to be COVID positive, found to have E coli bacturia, patient had a fall while in the ED and was briefly hypoxic. Metabolic encephalopathy resolved unremarkable repeat head CT probably related to obesity/darlene COVID 19 infection ID appreciated remdisivir day 5 of 5 Repeated COVID test negative Bacteriuria no symptoms of UTI, not septic Urine culture growing E coli and Enterococcus F Discussed with ID, likely contaminant Empirically treated with cefuroxime Discussed with Urology, to change the Camilo catheter Urinary retention Continue Camilo for now, consider removing it if Urology okay CKD IV stable DM insulin DARLENE cpap morbid obesity weight loss CAD statin coumadin metabolic alkalosis resolved chronic diastolic chf torsemide, metolazone htn hydralazine imdur toprol chronic afib Restart Coumadin, monitor inr, monitor for hematuria toprol history of CVA statin coumadin DVT PPX Warfarin Quality Stroke Does the patient have a stroke diagnosis?: No VTE Prior VTE?: No VTE Risk Level:: Medical - moderate - high VTE Device Contraindication: N/A - Device Ordered VTE Drug Contraindication: Treatment Not Tolerated
[2021-08-26 11:48] LABS: Glucose, Whole Blood 217 mg/dL (60-115)
--- NOTE | 2021-08-26 11:49 | MHC.CLN ---
F/U PO INTAKE 75-100% DIET RX: 2200DM 2GM NA-APPROPRIATE PT RECEIVING GLUCERNA TID TO PROMOTE WOUND HEALING SUPP TO PROVIDE 711KCALS, 30G PROTEIN CONTINUE TO MONITOR PO INTAKE CLOSELY
[2021-08-26] MEDS: Insulin Lispro 100 UNIT/ML 3 ML VIAL SUBCUT ×3 (12:08→20:35)
--- NOTE | 2021-08-26 12:55 | P.PNUR_ITS ---
Subjective Subjective Date of Service: 08/26/21 Interval history: Camilo catheter replacement Indwelling for congestive heart failure Failed voiding trial Catheter exchange today See in office in 3 weeks for voiding trial Physical Exam Vital Signs: Vital Signs: Last Vital Signs Temp 97.7 F 08/26/21 11:31 Pulse 72 08/26/21 11:31 Resp 19 08/26/21 11:31 BP 110/64 08/26/21 11:31 Pulse Ox 99 08/26/21 11:31 Oxygen Flow Rate 2 08/18/21 09:23 BMI result Body Mass Index 33.5 Const: General: cooperative, healthy appearing, comfortable and no acute distress Orientation/consciousness: patient oriented x3 HENMT: Face and sinus: Yes normal facial exam Mouth: moist mucous membranes Neck: Neck: Yes normal visual inspection, Yes full ROM and Yes trachea midline Chest: Chest palpation & inspection: normal inspection of the chest Resp: Effort & Inspection: normal respiratory effort, able to speak in co mplete sentences and no respiratory distress GI: Inspection: Yes normal to inspection Back/Spine/Pelvis: Cervical Spine: normal cervical lordosis Thoracic/Lumbar Spine: thoracic and lumbar spine normal to inspection Skin: General skin exam: no rashes or lesions noted Neuro: General: patient oriented x3, tone normal and moves all extremities Extrem: General: Yes normal to inspection and Yes capillary refill normal Urology Results Labs CBC & Chem 7: 08/25/21 07:01 08/25/21 07:01 Labs: Laboratory Results - last 24 hr 08/25/21 08/25/21 08/25/21 14:15 16:05 19:42 PT INR POC Glucose 168 H 144 H COVID-19 (POWER) Negative COVID-19 Clin Com See Note 08/26/21 08/26/21 08/26/21 06:43 07:31 11:36 PT 16.4 H INR 1.4 H POC Glucose 140 H 217 H COVID-19 (POWER) COVID-19 Clin Com Urology Procedures Catheter Insertion (Urinary) Date of insertion: 08/26/21 Time of insertion: 12:57 Replacement of catheter present on admission: Yes Reason for placing: Acute urinary retention Bladder scan/ultrasound used before catheterization: No Antiseptic solution prep: Povidone-Iodine Topical anesthesia used: Yes Catheter type/location: 2-way Urethral Size (Citizen [place]): 16 Procedure performed: without complications Progress Note: A&P Assessment and plan (1) Urinary retention: Status: Acute Plan Cap on catheter Empty every 4-6 hours Overnight bag Fall Risk Details Current Medications: Current Medications Acetaminophen (Acetaminophen 325 Mg Tablet) 650 mg PO Q6H PRN PRN Reason: Pain, Mild (Pain Scale 1-3) Last Admin: 08/20/21 08:10 Dose: 650 mg Documented by: Amitriptyline HCl (Amitriptyline Hcl 50 Mg Tablet) 50 mg PO DAILY [facility] Last Admin: 08/26/21 08:57 Dose: 50 mg Documented by: Amitriptyline HCl (Amitriptyline Hcl 50 Mg Tablet) 150 mg PO BEDTIME [facility] Last Admin: 08/25/21 21:03 Dose: 150 mg Documented by: Ascorbic Acid (Ascorbic Acid 500 Mg Tablet) 500 mg PO DAILY [facility] Last Admin: 08/26/21 08:57 Dose: 500 mg Documented by: Atorvastatin Calcium (Atorvastatin Calcium 80 Mg Tablet) 80 mg PO DAILY [facility] Last Admin: 08/26/21 08:57 Dose: 80 mg Documented by: Dextrose (Dextrose 50 % 25 Gm/50 Ml Syringe) 25 gm IVPUSH Q15M PRN; Protocol PRN Reason: per Hypoglycemia Standing Ord. Glucose (Glucose Gel 15 Gm Gel..Gram.) 15 gm PO Q15M PRN; Protocol PRN Reason: per Hypoglycemia Standing Ord. Hydralazine HCl (Hydralazine Hcl 25 Mg Tablet) 25 mg PO TID [facility]; Protocol Last Admin: 08/26/21 08:58 Dose: 25 mg Documented by: Insulin Human Lispro (Insulin Lispro 100 Unit/Ml 3 Ml Vial) 0 unit SUBCUT QIDACHS [facility]; Protocol Last Admin: 08/26/21 12:08 Dose: 4 unit Documented by: Isosorbide Mononitrate (Isosorbide Mononitrate 60 Mg Tab.Er.24h) 60 mg PO DAILY [facility]; Protocol Last Admin: 08/26/21 08:57 Dose: 60 mg Documented by: Metolazone (Metolazone 5 Mg Tablet) 5 mg PO DAILY [facility] Last Admin: 08/26/21 08:57 Dose: 5 mg Documented by: Metoprolol Succinate (Metoprolol Succinate Er 25 Mg Tab.Er.24h) 25 mg PO DAILY [facility]; Protocol Last Admin: 08/26/21 08:58 Dose: 25 mg Documented by: Omeprazole (Omeprazole 40 Mg Capsule.Dr) 40 mg PO DAILY@0630 [facility] Last Admin: 08/26/21 05:50 Dose: Not Given Documented by: Pharmacy Consult (Consult Rx Perform Med Rec) 1 each MISCELLANE ONCE PRN PRN Reason: Consult order Pharmacy Consult (Consult Rx Perform Med Rec) 1 each MISCELLANE ONCE PRN PRN Reason: Consult order Potassium Chloride (Potassium Chloride Er 20 Meq Tab.Er.Prt) 40 meq PO BID [facility] Last Admin: 08/26/21 08:57 Dose: 40 meq Documented by: Senna (Sennosides 8.6 Mg Tablet) 17.2 mg PO BEDTIME PRN PRN Reason: Constipation Sodium Chloride (0.9 % Sodium Chloride Flush 3 Ml Syringe) 3 ml IVFLUSH QSHIFT [facility] Last Admin: 08/26/21 08:58 Dose: 3 ml Documented by: Torsemide (Torsemide 20 Mg Tablet) 100 mg PO BID [facility]; Protocol Last Admin: 08/26/21 08:58 Dose: 100 mg Documented by: Warfarin Sodium (Warfarin Sodium 2.5 Mg Tablet) 2.5 mg PO MoTuWeThFrSa@1800 [facility] Last Admin: 08/25/21 17:01 Dose: 2.5 mg Documented by: Warfarin Sodium (Warfarin Sodium 5 Mg Tablet) 5 mg PO Carrillo@1800 [facility] Time Spent With Patient Time: Total time spent is greater than 50% in coordination of care (as documented) at patient's floor/unit and/or counseling patient: Time with patient: less than 15 minutes Progress Note: Quality Stroke Does the patient have a stroke diagnosis?: No
[2021-08-26 15:56] LABS: Glucose, Whole Blood 193 mg/dL (60-115)
[2021-08-26] MEDS: Warfarin Sodium 2.5 MG TABLET PO (16:12)
[2021-08-26 20:14] LABS: Glucose, Whole Blood 223 mg/dL (60-115)
[2021-08-26] MEDS: Amitriptyline HCl 50 MG TABLET 150 MG PO (20:35)
[2021-08-27] VITALS (9 sets, daily range): BP systolic 99–121; BP diastolic 51–70; PULSE 60–81; RESP 16–20; TEMP 36–36.9; O2SAT 97–99
[2021-08-27] MEDS: Omeprazole 40 MG CAPSULE.DR PO (06:09)
[2021-08-27 07:15] LABS: Glucose, Whole Blood 157 mg/dL (60-115)
[2021-08-27 07:24] LABS: INTERNATIONAL NORM RATIO 1.4 (0.9-1.1); Prothrombin Time 16.4 SEC (9.9-13.0)
[2021-08-27] MEDS: Potassium Chloride ER 20 MEQ TAB.ER.PRT 40 MEQ PO ×2 (07:54→21:45)
[2021-08-27] MEDS: Isosorbide Mononitrate 60 MG TAB.ER.24H PO (07:55)
[2021-08-27] MEDS: Ascorbic Acid 500 MG TABLET PO (07:55)
[2021-08-27] MEDS: Torsemide 20 MG TABLET 100 MG PO ×2 (07:55→21:45)
[2021-08-27] MEDS: metOLazone 5 MG TABLET PO (07:55)
[2021-08-27] MEDS: Atorvastatin Calcium 80 MG TABLET PO (07:56)
[2021-08-27] MEDS: Metoprolol Succinate ER 25 MG TAB.ER.24H PO (07:56)
[2021-08-27] MEDS: hydrALAZINE HCl 25 MG TABLET PO (07:56)
[2021-08-27] MEDS: Insulin Lispro 100 UNIT/ML 3 ML VIAL SUBCUT ×4 (07:56→21:45)
[2021-08-27] MEDS: Amitriptyline HCl 50 MG TABLET PO (07:56)
[2021-08-27] MEDS: 0.9 % Sodium Chloride Flush 3 ML SYRINGE IVFLUSH ×2 (07:57→16:29)
[2021-08-27 10:53] LABS: Glucose, Whole Blood 215 mg/dL (60-115)
--- NOTE | 2021-08-27 11:48 | HO.PM.IMPN ---
Subjective Subjective Date of Service: 08/27/21 Interval History: the patient was seen and evaluated this morning Laying in bed, feels comfortable On baseline home oxygen, CPAP at night Camilo catheter change with clear urine No reported other overnight events. Systemic review: No fever, chills or weakness No chest pain, palpitation No shortness of breath or coughing No abdominal pain, nausea or vomiting No urinary symptoms, no hematuria No any rash or wounds Physical Exam Vital Signs: Vital Signs: Last Vital Signs Temp 96.8 F 08/27/21 10:51 Pulse 60 08/27/21 10:51 Resp 20 08/27/21 10:51 BP 110/54 L 08/27/21 10:51 Pulse Ox 97 08/27/21 10:51 Oxygen Flow Rate 2 08/18/21 09:23 BMI result Body Mass Index 33.5 Const: Other: Constitutional : Alert, oriented, not in distress Neck : Normal inspection, Supple Cardiovascular : RRR, S1 S2, no lower extremity edema Respiratory : Good bilateral air entry, no crackles, wheezes or rhonchi Gastrointestinal: soft, lax, Normal bowel sounds, Non tender Skin : Warm, Dry, urine is clear Neurological : Alert & oriented x3, No focal deficit Objective Data Active Medications Acetaminophen (Acetaminophen 325 Mg Tablet) 650 mg PO Q6H PRN PRN Reason: Pain, Mild (Pain Scale 1-3) Last Admin: 08/20/21 08:10 Dose: 650 mg Documented by: ANJU Amitriptyline HCl (Amitriptyline Hcl 50 Mg Tablet) 50 mg PO DAILY [facility] Last Admin: 08/27/21 07:56 Dose: 50 mg Documented by: RYLEE Amitriptyline HCl (Amitriptyline Hcl 50 Mg Tablet) 150 mg PO BEDTIME [facility] Last Admin: 08/26/21 20:35 Dose: 150 mg Documented by: TISH Ascorbic Acid (Ascorbic Acid 500 Mg Tablet) 500 mg PO DAILY [facility] Last Admin: 08/27/21 07:55 Dose: 500 mg Documented by: RYLEE Atorvastatin Calcium (Atorvastatin Calcium 80 Mg Tablet) 80 mg PO DAILY [facility] Last Admin: 08/27/21 07:56 Dose: 80 mg Documented by: RYLEE Dextrose (Dextrose 50 % 25 Gm/50 Ml Syringe) 25 gm IVPUSH Q15M PRN; Protocol PRN Reason: per Hypoglycemia Standing Ord. Glucose (Glucose Gel 15 Gm Gel..Gram.) 15 gm PO Q15M PRN; Protocol PRN Reason: per Hypoglycemia Standing Ord. Hydralazine HCl (Hydralazine Hcl 25 Mg Tablet) 25 mg PO TID [facility]; Protocol Last Admin: 08/27/21 07:56 Dose: 25 mg Documented by: RYLEE Insulin Human Lispro (Insulin Lispro 100 Unit/Ml 3 Ml Vial) 0 unit SUBCUT QIDACHS [facility]; Protocol Last Admin: 08/27/21 11:28 Dose: 4 unit Documented by: RYLEE Isosorbide Mononitrate (Isosorbide Mononitrate 60 Mg Tab.Er.24h) 60 mg PO DAILY [facility]; Protocol Last Admin: 08/27/21 07:55 Dose: 60 mg Documented by: RYLEE Metolazone (Metolazone 5 Mg Tablet) 5 mg PO DAILY [facility] Last Admin: 08/27/21 07:55 Dose: 5 mg Documented by: RYLEE Metoprolol Succinate (Metoprolol Succinate Er 25 Mg Tab.Er.24h) 25 mg PO DAILY [facility]; Protocol Last Admin: 08/27/21 07:56 Dose: 25 mg Documented by: RYLEE Omeprazole (Omeprazole 40 Mg Capsule.Dr) 40 mg PO DAILY@0630 [facility] Last Admin: 08/27/21 06:09 Dose: 40 mg Documented by: TISH Pharmacy Consult (Consult Rx Perform Med Rec) 1 each MISCELLANE ONCE PRN PRN Reason: Consult order Pharmacy Consult (Consult Rx Perform Med Rec) 1 each MISCELLANE ONCE PRN PRN Reason: Consult order Potassium Chloride (Potassium Chloride Er 20 Meq Tab.Er.Prt) 40 meq PO BID [facility] Last Admin: 08/27/21 07:54 Dose: 40 meq Documented by: RYLEE Senna (Sennosides 8.6 Mg Tablet) 17.2 mg PO BEDTIME PRN PRN Reason: Constipation Sodium Chloride (0.9 % Sodium Chloride Flush 3 Ml Syringe) 3 ml IVFLUSH QSHIFT [facility] Last Admin: 08/27/21 07:57 Dose: 3 ml Documented by: RYLEE Torsemide (Torsemide 20 Mg Tablet) 100 mg PO BID [facility]; Protocol Last Admin: 08/27/21 07:55 Dose: 100 mg Documented by: RYLEE Warfarin Sodium (Warfarin Sodium 2.5 Mg Tablet) 2.5 mg PO MoTuWeThFrSa@1800 [facility] Last Admin: 08/26/21 16:12 Dose: 2.5 mg Documented by: SHANNAN Warfarin Sodium (Warfarin Sodium 5 Mg Tablet) 5 mg PO Carrillo@1800 [facility] Warfarin Sodium (Warfarin Sodium 4 Mg Tablet) 4 mg PO DAILY@1800 [facility] Stop: 08/27/21 18:01 Labs CBC & Chem 7: 08/25/21 07:01 08/25/21 07:01 Labs: Laboratory Results - last 24 hr 08/26/21 08/26/21 08/26/21 11:36 15:53 20:11 PT INR POC Glucose 217 H 193 H 223 H 08/27/21 08/27/21 08/27/21 06:57 07:11 10:49 PT 16.4 H INR 1.4 H POC Glucose 157 H 215 H Microbiology Microbiology Results: Microbiology 08/24/21 Unknown Urine Culture - Final Urine clean catch - Urine watkins top Enterococcus faecalis Assessment and Plan (1) Urinary retention: Status: Acute (2) Physical deconditioning: Status: Acute (3) SARS-CoV-2 positive: Status: Acute Plan 61-year-old male presented to the ED with difficulty draining his catheter, found to be COVID positive, found to have E coli bacturia, patient had a fall while in the ED and was briefly hypoxic. Metabolic encephalopathy resolved COVID 19 infection Resolved remdisivir day 5 of 5 Bacteriuria Urine culture growing E coli and Enterococcus F Discussed with ID, likely contaminant Antibiotics discontinued Urology changed the Camilo catheter on August 26 Urinary retention Continue Camilo for now, to follow with Urology as outpatient for removal Physical deconditioning Secondary to prolonged hospital stay PT recommended SNF placement, waiting bed availability CKD IV stable DM insulin DARLENE cpap morbid obesity weight loss CAD statin coumadin metabolic alkalosis resolved chronic diastolic chf torsemide, metolazone htn hydralazine imdur toprol chronic afib Restart Coumadin, monitor inr, monitor for hematuria toprol history of CVA statin coumadin DVT PPX Warfarin Quality Stroke Does the patient have a stroke diagnosis?: No VTE Prior VTE?: No VTE Risk Level:: Medical - moderate - high VTE Device Contraindication: N/A - Device Ordered VTE Drug Contraindication: Treatment Not Tolerated
[2021-08-27] MEDS: Warfarin Sodium 4 MG TABLET PO (16:29)
--- NOTE | 2021-08-27 20:09 | PC.NURSE ---
mcknight cath emptied for 200 ml at 1630 . as per urology , urinary catheter was capped for 4 hrs and than emptied for 225 ml , pt tolerating well. Drainage bag will be placed overnite
[2021-08-27 21:18] LABS: Glucose, Whole Blood 159 mg/dL (60-115)
[2021-08-27 21:18] LABS: Glucose, Whole Blood 169 mg/dL (60-115)
[2021-08-27] MEDS: Amitriptyline HCl 50 MG TABLET 150 MG PO (21:45)
[2021-08-28] MEDS: 0.9 % Sodium Chloride Flush 3 ML SYRINGE IVFLUSH ×3 (01:54→16:29)
[2021-08-28 04:00] VITALS: BP 107/64; PULSE 64; RESP 19; TEMP 36.2; O2SAT 96
[2021-08-28] MEDS: Omeprazole 40 MG CAPSULE.DR PO (06:23)
[2021-08-28 07:17] VITALS: BP 126/78; PULSE 79; RESP 20; TEMP 36.9; O2SAT 98
[2021-08-28 07:22] LABS: INTERNATIONAL NORM RATIO 1.5 (0.9-1.1); Prothrombin Time 16.8 SEC (9.9-13.0)
[2021-08-28 07:30] LABS: Glucose, Whole Blood 178 mg/dL (60-115)
[2021-08-28] MEDS: metOLazone 5 MG TABLET PO (08:29)
[2021-08-28] MEDS: Isosorbide Mononitrate 60 MG TAB.ER.24H PO (08:29)
[2021-08-28] MEDS: Potassium Chloride ER 20 MEQ TAB.ER.PRT 40 MEQ PO ×2 (08:29→19:57)
[2021-08-28] MEDS: Atorvastatin Calcium 80 MG TABLET PO (08:29)
[2021-08-28] MEDS: Insulin Lispro 100 UNIT/ML 3 ML VIAL SUBCUT ×4 (08:29→19:57)
[2021-08-28] MEDS: Ascorbic Acid 500 MG TABLET PO (08:29)
[2021-08-28] MEDS: Torsemide 20 MG TABLET 100 MG PO ×2 (08:29→19:56)
[2021-08-28] MEDS: hydrALAZINE HCl 25 MG TABLET PO ×2 (08:29→14:13)
[2021-08-28] MEDS: Metoprolol Succinate ER 25 MG TAB.ER.24H PO (08:29)
[2021-08-28] MEDS: Amitriptyline HCl 50 MG TABLET PO (08:30)
[2021-08-28 11:25] VITALS: BP 120/82; PULSE 75; RESP 20; TEMP 36.4; O2SAT 99
--- NOTE | 2021-08-28 11:25 | P.PNIM_ITS ---
Subjective Subjective Date of Service: 08/28/21 Interval History: the patient was seen and evaluated this morning Laying in bed, feels comfortable On baseline home oxygen, CPAP at night Camilo catheter change with clear urine No reported other overnight events. Systemic review: No fever, chills or weakness No chest pain, palpitation No shortness of breath or coughing No abdominal pain, nausea or vomiting No urinary symptoms, no hematuria No any rash or wounds Physical Exam Vital Signs: Vital Signs: Last Vital Signs Temp 98.4 F 08/28/21 07:17 Pulse 79 08/28/21 07:17 Resp 20 08/28/21 07:17 BP 126/78 08/28/21 07:17 Pulse Ox 98 08/28/21 07:17 Oxygen Flow Rate 2 08/18/21 09:23 BMI result Body Mass Index 33.5 Const: Other: Constitutional : Alert, oriented, not in distress Neck : Normal inspection, Supple Cardiovascular : RRR, S1 S2, no lower extremity edema Respiratory : Good bilateral air entry, no crackles, wheezes or rhonchi Gastrointestinal: soft, lax, Normal bowel sounds, Non tender Skin : Warm, Dry, urine is clear Neurological : Alert & oriented x3, No focal deficit Objective Data Active Medications Acetaminophen (Acetaminophen 325 Mg Tablet) 650 mg PO Q6H PRN PRN Reason: Pain, Mild (Pain Scale 1-3) Last Admin: 08/20/21 08:10 Dose: 650 mg Documented by: ANJU Amitriptyline HCl (Amitriptyline Hcl 50 Mg Tablet) 50 mg PO DAILY [facility] Last Admin: 08/28/21 08:30 Dose: 50 mg Documented by: JAVIER Comments: haily mandujanon Amitriptyline HCl (Amitriptyline Hcl 50 Mg Tablet) 150 mg PO BEDTIME [facility] Last Admin: 08/27/21 21:45 Dose: 150 mg Documented by: JONATHAN Ascorbic Acid (Ascorbic Acid 500 Mg Tablet) 500 mg PO DAILY [facility] Last Admin: 08/28/21 08:29 Dose: 500 mg Documented by: JAVIER Atorvastatin Calcium (Atorvastatin Calcium 80 Mg Tablet) 80 mg PO DAILY [facility] Last Admin: 08/28/21 08:29 Dose: 80 mg Documented by: JAVIER Dextrose (Dextrose 50 % 25 Gm/50 Ml Syringe) 25 gm IVPUSH Q15M PRN; Protocol PRN Reason: per Hypoglycemia Standing Ord. Glucose (Glucose Gel 15 Gm Gel..Gram.) 15 gm PO Q15M PRN; Protocol PRN Reason: per Hypoglycemia Standing Ord. Hydralazine HCl (Hydralazine Hcl 25 Mg Tablet) 25 mg PO TID [facility]; Protocol Last Admin: 08/28/21 08:29 Dose: 25 mg Documented by: JAVIER Insulin Human Lispro (Insulin Lispro 100 Unit/Ml 3 Ml Vial) 0 unit SUBCUT QIDACHS [facility]; Protocol Last Admin: 08/28/21 08:29 Dose: 2 unit Documented by: JAVIER Isosorbide Mononitrate (Isosorbide Mononitrate 60 Mg Tab.Er.24h) 60 mg PO DAILY [facility]; Protocol Last Admin: 08/28/21 08:29 Dose: 60 mg Documented by: JAVIER Metolazone (Metolazone 5 Mg Tablet) 5 mg PO DAILY [facility] Last Admin: 08/28/21 08:29 Dose: 5 mg Documented by: JAVIER Metoprolol Succinate (Metoprolol Succinate Er 25 Mg Tab.Er.24h) 25 mg PO DAILY [facility]; Protocol Last Admin: 08/28/21 08:29 Dose: 25 mg Documented by: JAVIER Omeprazole (Omeprazole 40 Mg Capsule.Dr) 40 mg PO DAILY@0630 [facility] Last Admin: 08/28/21 06:23 Dose: 40 mg Documented by: JEFF Pharmacy Consult (Consult Rx Perform Med Rec) 1 each MISCELLANE ONCE PRN PRN Reason: Consult order Pharmacy Consult (Consult Rx Perform Med Rec) 1 each MISCELLANE ONCE PRN PRN Reason: Consult order Potassium Chloride (Potassium Chloride Er 20 Meq Tab.Er.Prt) 40 meq PO BID [facility] Last Admin: 08/28/21 08:29 Dose: 40 meq Documented by: JAVIER Senna (Sennosides 8.6 Mg Tablet) 17.2 mg PO BEDTIME PRN PRN Reason: Constipation Sodium Chloride (0.9 % Sodium Chloride Flush 3 Ml Syringe) 3 ml IVFLUSH QSHIFT [facility] Last Admin: 08/28/21 08:30 Dose: 3 ml Documented by: JAVIER Torsemide (Torsemide 20 Mg Tablet) 100 mg PO BID [facility]; Protocol Last Admin: 08/28/21 08:29 Dose: 100 mg Documented by: JAVIER Warfarin Sodium (Warfarin Sodium 2.5 Mg Tablet) 2.5 mg PO MoTuWeThFrSa@1800 [facility] Last Admin: 08/26/21 16:12 Dose: 2.5 mg Documented by: SHANNAN Warfarin Sodium (Warfarin Sodium 5 Mg Tablet) 5 mg PO Carrillo@1800 [facility] Labs CBC & Chem 7: 08/25/21 07:01 08/25/21 07:01 Labs: Laboratory Results - last 24 hr 08/27/21 08/27/21 08/28/21 16:23 20:05 06:43 PT 16.8 H INR 1.5 H POC Glucose 169 H 159 H 08/28/21 07:17 PT INR POC Glucose 178 H Assessment and Plan (1) Urinary retention: Status: Acute (2) Physical deconditioning: Status: Acute (3) SARS-CoV-2 positive: Status: Acute Plan 61-year-old male presented to the ED with difficulty draining his catheter, found to be COVID positive, found to have E coli bacturia, patient had a fall while in the ED and was briefly hypoxic. Metabolic encephalopathy resolved COVID 19 infection Resolved remdisivir day 5 of 5 Bacteriuria Urine culture growing E coli and Enterococcus F Discussed with ID, likely contaminant Antibiotics discontinued Urology changed the Camilo catheter on August 26 Urinary retention Continue Camilo for now, to follow with Urology as outpatient for removal Physical deconditioning Secondary to prolonged hospital stay PT recommended SNF placement, waiting bed availability CKD IV stable DM insulin DARLENE cpap morbid obesity weight loss CAD statin coumadin metabolic alkalosis resolved chronic diastolic chf torsemide, metolazone htn hydralazine imdur toprol chronic afib Subtherapeutic INR INR 1.5, warfarin dose increased yesterday Continue toprol Follow INR history of CVA statin coumadin DVT PPX Warfarin Quality Stroke Does the patient have a stroke diagnosis?: No VTE Prior VTE?: No VTE Risk Level:: Medical - moderate - high VTE Device Contraindication: N/A - Device Ordered VTE Drug Contraindication: Treatment Not Tolerated
[2021-08-28 11:32] LABS: Glucose, Whole Blood 240 mg/dL (60-115)
[2021-08-28 15:12] VITALS: BP 113/73; PULSE 81; RESP 20; TEMP 36.9; O2SAT 99
[2021-08-28 16:03] LABS: Glucose, Whole Blood 171 mg/dL (60-115)
[2021-08-28] MEDS: Warfarin Sodium 5 MG TABLET PO (16:28)
[2021-08-28 19:14] VITALS: BP 101/58; PULSE 80; RESP 20; TEMP 37; O2SAT 98
[2021-08-28 19:45] LABS: Glucose, Whole Blood 173 mg/dL (60-115)
[2021-08-28] MEDS: Amitriptyline HCl 50 MG TABLET 150 MG PO (19:57)
[2021-08-28 23:17] VITALS: BP 105/57; PULSE 87; RESP 20; TEMP 36.4; O2SAT 97
[2021-08-29] VITALS (7 sets, daily range): BP systolic 103–121; BP diastolic 58–69; PULSE 66–86; RESP 18–20; TEMP 35.8–36.7; O2SAT 93–97
[2021-08-29] MEDS: 0.9 % Sodium Chloride Flush 3 ML SYRINGE IVFLUSH ×4 (01:15→20:34)
[2021-08-29] MEDS: Acetaminophen 325 MG TABLET 650 MG PO ×2 (04:07→12:11)
[2021-08-29] MEDS: Omeprazole 40 MG CAPSULE.DR PO (06:14)
[2021-08-29 07:29] LABS: Prothrombin Time 22.8 SEC (9.9-13.0)
[2021-08-29 07:57] LABS: Glucose, Whole Blood 204 mg/dL (60-115)
[2021-08-29] MEDS: Insulin Lispro 100 UNIT/ML 3 ML VIAL SUBCUT ×4 (08:12→20:32)
[2021-08-29] MEDS: metOLazone 5 MG TABLET PO (08:13)
[2021-08-29] MEDS: Atorvastatin Calcium 80 MG TABLET PO (08:13)
[2021-08-29] MEDS: Torsemide 20 MG TABLET 100 MG PO ×2 (08:13→20:32)
[2021-08-29] MEDS: Ascorbic Acid 500 MG TABLET PO (08:13)
[2021-08-29] MEDS: hydrALAZINE HCl 25 MG TABLET PO ×3 (08:13→20:31)
[2021-08-29] MEDS: Potassium Chloride ER 20 MEQ TAB.ER.PRT 40 MEQ PO ×2 (08:13→20:31)
[2021-08-29] MEDS: Isosorbide Mononitrate 60 MG TAB.ER.24H PO (08:13)
[2021-08-29] MEDS: Metoprolol Succinate ER 25 MG TAB.ER.24H PO (08:14)
[2021-08-29] MEDS: Amitriptyline HCl 50 MG TABLET PO (08:14)
--- NOTE | 2021-08-29 11:18 | HO.PM.IMPN ---
Subjective Subjective Date of Service: 08/29/21 Interval History: the patient was seen and evaluated this morning Laying in bed, feels comfortable On baseline home oxygen, CPAP at night No reported other overnight events. Systemic review: No fever, chills or weakness No chest pain, palpitation No shortness of breath or coughing No abdominal pain, nausea or vomiting No urinary symptoms, no hematuria No any rash or wounds Physical Exam Vital Signs: Vital Signs: Last Vital Signs Temp 97.7 F 08/29/21 07:42 Pulse 72 08/29/21 07:42 Resp 18 08/29/21 07:42 BP 103/59 L 08/29/21 07:42 Pulse Ox 94 08/29/21 07:42 Oxygen Flow Rate 2 08/18/21 09:23 BMI result Body Mass Index 33.5 Const: Other: Constitutional : Alert, oriented, not in distress Neck : Normal inspection, Supple Cardiovascular : RRR, S1 S2, no lower extremity edema Respiratory : Good bilateral air entry, no crackles, wheezes or rhonchi on 2 L of oxygen Gastrointestinal: soft, lax, Normal bowel sounds, Non tender Skin : Warm, Dry, urine is clear Neurological : Alert & oriented x3, No focal deficit Objective Data Active Medications Acetaminophen (Acetaminophen 325 Mg Tablet) 650 mg PO Q6H PRN PRN Reason: Pain, Mild (Pain Scale 1-3) Last Admin: 08/29/21 04:07 Dose: 650 mg Documented by: FABBY Amitriptyline HCl (Amitriptyline Hcl 50 Mg Tablet) 50 mg PO DAILY [facility] Last Admin: 08/29/21 08:14 Dose: 50 mg Documented by: DEEPAK Amitriptyline HCl (Amitriptyline Hcl 50 Mg Tablet) 150 mg PO BEDTIME [facility] Last Admin: 08/28/21 19:57 Dose: 150 mg Documented by: JONATHAN Ascorbic Acid (Ascorbic Acid 500 Mg Tablet) 500 mg PO DAILY [facility] Last Admin: 08/29/21 08:13 Dose: 500 mg Documented by: DEEPAK Atorvastatin Calcium (Atorvastatin Calcium 80 Mg Tablet) 80 mg PO DAILY [facility] Last Admin: 08/29/21 08:13 Dose: 80 mg Documented by: DEEPAK Dextrose (Dextrose 50 % 25 Gm/50 Ml Syringe) 25 gm IVPUSH Q15M PRN; Protocol PRN Reason: per Hypoglycemia Standing Ord. Glucose (Glucose Gel 15 Gm Gel..Gram.) 15 gm PO Q15M PRN; Protocol PRN Reason: per Hypoglycemia Standing Ord. Hydralazine HCl (Hydralazine Hcl 25 Mg Tablet) 25 mg PO TID [facility]; Protocol Last Admin: 08/29/21 08:13 Dose: 25 mg Documented by: DEEPAK Insulin Human Lispro (Insulin Lispro 100 Unit/Ml 3 Ml Vial) 0 unit SUBCUT QIDACHS [facility]; Protocol Last Admin: 08/29/21 08:12 Dose: 4 unit Documented by: DEEPAK Isosorbide Mononitrate (Isosorbide Mononitrate 60 Mg Tab.Er.24h) 60 mg PO DAILY [facility]; Protocol Last Admin: 08/29/21 08:13 Dose: 60 mg Documented by: DEEPAK Metolazone (Metolazone 5 Mg Tablet) 5 mg PO DAILY [facility] Last Admin: 08/29/21 08:13 Dose: 5 mg Documented by: DEEPAK Metoprolol Succinate (Metoprolol Succinate Er 25 Mg Tab.Er.24h) 25 mg PO DAILY [facility]; Protocol Last Admin: 08/29/21 08:14 Dose: 25 mg Documented by: DEEPAK Omeprazole (Omeprazole 40 Mg Capsule.Dr) 40 mg PO DAILY@0630 [facility] Last Admin: 08/29/21 06:14 Dose: 40 mg Documented by: FABBY Pharmacy Consult (Consult Rx Perform Med Rec) 1 each MISCELLANE ONCE PRN PRN Reason: Consult order Pharmacy Consult (Consult Rx Perform Med Rec) 1 each MISCELLANE ONCE PRN PRN Reason: Consult order Potassium Chloride (Potassium Chloride Er 20 Meq Tab.Er.Prt) 40 meq PO BID [facility] Last Admin: 08/29/21 08:13 Dose: 40 meq Documented by: DEEPAK Senna (Sennosides 8.6 Mg Tablet) 17.2 mg PO BEDTIME PRN PRN Reason: Constipation Sodium Chloride (0.9 % Sodium Chloride Flush 3 Ml Syringe) 3 ml IVFLUSH QSHIFT [facility] Last Admin: 08/29/21 08:14 Dose: 3 ml Documented by: DEEPAK Torsemide (Torsemide 20 Mg Tablet) 100 mg PO BID [facility]; Protocol Last Admin: 08/29/21 08:13 Dose: 100 mg Documented by: BROB Warfarin Sodium (Warfarin Sodium 2.5 Mg Tablet) 2.5 mg PO MoTuWeThFrSa@1800 [facility] Last Admin: 08/26/21 16:12 Dose: 2.5 mg Documented by: MARIAHENOAL Warfarin Sodium (Warfarin Sodium 5 Mg Tablet) 5 mg PO Carrillo@1800 [facility] Last Admin: 08/28/21 16:28 Dose: 5 mg Documented by: JONATHAN Labs CBC & Chem 7: 08/25/21 07:01 08/25/21 07:01 Labs: Laboratory Results - last 24 hr 08/28/21 08/28/21 08/28/21 11:27 15:59 19:42 PT INR POC Glucose 240 H 171 H 173 H 08/29/21 08/29/21 06:37 07:45 PT 22.8 H INR 2.0 H POC Glucose 204 H Assessment and Plan (1) Urinary retention: Status: Acute (2) Physical deconditioning: Status: Acute (3) SARS-CoV-2 positive: Status: Acute Plan 61-year-old male presented to the ED with difficulty draining his catheter, found to be COVID positive, found to have E coli bacturia, patient had a fall while in the ED and was briefly hypoxic. Metabolic encephalopathy resolved COVID 19 infection Resolved remdisivir day 5 of 5 Bacteriuria Urine culture growing E coli and Enterococcus F Discussed with ID, likely contaminant Antibiotics discontinued Urology changed the Camilo catheter on August 26 Urinary retention Continue Camilo for now, to follow with Urology as outpatient for removal Physical deconditioning Secondary to prolonged hospital stay PT recommended SNF placement, waiting bed availability CKD IV stable DM insulin DARLENE cpap morbid obesity weight loss CAD statin coumadin metabolic alkalosis resolved chronic diastolic chf torsemide, metolazone htn hydralazine imdur toprol chronic afib Subtherapeutic INR INR 1.5, warfarin dose increased yesterday Continue toprol Follow INR history of CVA statin coumadin DVT PPX Warfarin Quality Stroke Does the patient have a stroke diagnosis?: No VTE Prior VTE?: No VTE Risk Level:: Medical - moderate - high VTE Device Contraindication: N/A - Device Ordered VTE Drug Contraindication: Treatment Not Tolerated
[2021-08-29 11:31] LABS: Glucose, Whole Blood 197 mg/dL (60-115)
--- NOTE | 2021-08-29 13:05 | MHC.CLN ---
F/U PO INTAKE REMAINS 75-100% DIET RX: 2200DM 2GM NA-APPROPRIATE PT RECEIVING GLUCERNA TID TO PROMOTE WOUND HEALING SUPP PROVIDES 711KCALS, 30G PROTEIN CONTINUE TO MONITOR PO INTAKE CLOSELY
--- NOTE | 2021-08-29 14:21 | PM.DS ---
DS: Providers Provider Date of Service: 08/30/21 Date of admission: 08/19/21 21:56 Primary care physician: Tawana Bowen NP Consults: 08/19/21 21:59 Consult to Infectious Diseases Routine Consulting Provider: Brie Martino Reason for consultation: covid positive DS: Diagnosis Discharge Diagnosis (1) Urinary retention: Status: Acute (2) Physical deconditioning: Status: Acute (3) SARS-CoV-2 positive: Status: Acute (4) Hypoxia: Status: Acute DS: Summary Hospital Course Hospital Course: Admission note HPI 61-year-old male with a past medical history of hypertension, hyperlipidemia, diabetes, CHF(EF-30%) with CardioMEMS device in place severe pulmonary hypertension, chronic hypoxic respiratory failure on 2 L of home oxygen at baseline, atrial fibrillation on Coumadin, CKD, history of CVA, polycythemia vera, CVA with no residual deficits, recent prolonged admission to the hospital for acute on chronic CHF, CVA, anemia, hematuria; discharged on 08/17/2021; presented back to the hospital with a chief complaint of Camilo not draining on 08/18/2021; otherwise denied any chest pain or palpitations.? Patient's COVID-19 was positive.? Exam was benign per ER team vitals were stable; upon evaluation patient was noted to are 300 cc urinary retention no blood clots; noted to have UTI-growing E coli-receiving cefuroxime; blood cultures negative so far; Followed by today patient had a fall in the ER while waiting to be placed in the rehab; patient reports he fell on the ground, hit his head; complains of headaches; denies any neck pain back pain.? Reports he has pain in his legs.? Denies any numbness or tingling.? Denies any fever chills and cough.? Patient at that time was also noted to be saturating 80s on room air; not in respiratory distress; placed on supplemental oxygen via nasal cannula and transitioned to Ventimask; oxygenation improved; CT chest was done which showed no acute cardiopulmonary process except for elective assess; CT head was done which showed no evidence of acute intracranial process.? Given the patient is COVID positive, received Decadron.? Admitted to the hospital for further management. Hospital course The patient was admitted for evaluation of altered mentation which believed to be secondary to multiple medication and fraction. Improved back to baseline during the hospital stay. Treated with 5 days of remdesivir for COVID-19 infection along with oxygen supplement. He was weaned down to 2 L of oxygen his baseline. Urine showed bacteriuria with culture growing both E coli and Enterococcus. Evaluated by infectious disease specialist who recommended no active treatment as it is likely a colony. Urology change the Camilo catheter with no reported hematuria. The patient is supposed to follow up with Dr. Mondragon at the office for Camilo catheter removal. Evaluated by physical therapy team who recommended short-term physical therapy. Time Spent with Patient Time attestation: Total time spent providing and/or coordinating discharge services: Discharge coordination time: Greater than 30 minutes Quality: Stroke Does the patient have a stroke diagnosis?: No Physical Exam Vital Signs: Vital Signs: Last Vital Signs Temp 97.8 F 08/29/21 11:24 Pulse 79 08/29/21 11:24 Resp 18 08/29/21 11:24 BP 121/69 08/29/21 11:24 Pulse Ox 97 08/29/21 11:24 Oxygen Flow Rate 2 08/18/21 09:23 BMI result Body Mass Index 33.5 Const: Other: Constitutional : Alert, oriented, not in distress Neck : Normal inspection, Supple Cardiovascular : RRR, S1 S2, no lower extremity edema Respiratory : Good bilateral air entry, no crackles, wheezes or rhonchi on 2 L of oxygen Gastrointestinal: soft, lax, Normal bowel sounds, Non tender Skin : Warm, Dry, urine is clear Neurological : Alert & oriented x3, No focal deficit DS: Data Data Completed and Pending Completed studies during hospitalization [Text1]: Procedures Assistance with Respiratory Ventilation, Less than 24 Consecutive Hours, Continuous Positive Airway Pressure (07/17/21) Transfusion of Nonautologous Red Blood Cells into Peripheral Vein, Percutaneous Approach (07/17/21) Labs on day of discharge: Laboratory Results - last 24 hr 08/28/21 08/28/21 08/29/21 15:59 19:42 06:37 PT 22.8 H INR 2.0 H POC Glucose 171 H 173 H 08/29/21 08/29/21 07:45 11:26 PT INR POC Glucose 204 H 197 H Discharge Plan Discharge Patient Disposition: [facility] Discharge Diagnosis: COVID-19 infection Referrals: [facility]– [place] [Outside] - 1 Week Tawana Bowen NP [Primary Care Provider] - 1 Week Discharge Medications: Continued atorvastatin 80 mg tablet 1 tab PO DAILY 0RF warfarin 2.5 mg tablet 2 tab PO LU 0RF Hold Instructions: Resume on 08/24/21. Protocol: Dose Management Condition: Sunday (Week One) Dose/Route: 5 mg Instruction: 2 x 2.5 mg tablets Condition: Sunday Dose/Route: 2.5 mg Instruction: 1 x 2.5 mg tablet Condition: Sunday Dose/Route: 2.5 mg Instruction: 1 x 2.5 mg tablet Condition: Sunday Dose/Route: 2.5 mg Instruction: 1 x 2.5 mg tablet Condition: Dose/Route: 2.5 mg Instruction: 1 x 2.5 mg tablet Condition: Sunday Dose/Route: 2.5 mg Instruction: 1 x 2.5 mg tablet Condition: Sunday Dose/Route: 2.5 mg Instruction: 1 x 2.5 mg tablet Condition: Sunday (Week Two) Dose/Route: 5 mg Instruction: 2 x 2.5 mg tablets Condition: Sunday Dose/Route: 2.5 mg Instruction: 1 x 2.5 mg tablet Condition: Sunday Dose/Route: 2.5 mg Instruction: 1 x 2.5 mg tablet Condition: Sunday Dose/Route: 2.5 mg Instruction: 1 x 2.5 mg tablet Condition: Dose/Route: 2.5 mg Instruction: 1 x 2.5 mg tablet Condition: Sunday Dose/Route: 2.5 mg Instruction: 1 x 2.5 mg tablet Condition: Sunday Dose/Route: 2.5 mg Instruction: 1 x 2.5 mg tablet Protocol Text: Adjustment Start Date: Sunday04/27/21 INR Value: 3.1 INR Date: 04/27/21 Additional Instructions: ADD A FEW GREENS THIS WEEK SAME WARFARIN DOSING RETURN 2 WEEKS Rx Instructions: ON HOLD UNTIL 08/24 per dc summary amitriptyline 50 mg tablet 1 tab PO DAILY 0RF Humulin R U-500 (Conc) Insulin 500 unit/mL solution 20 unit subcut QAM 0RF metoprolol succinate 25 mg tablet extended release 24 hr 1 tab PO DAILY 0RF Trulicity 1.5 mg/0.5 mL pen injector 1 mg subcut QWEEK 0RF Rx Instructions: mondays metolazone 5 mg tablet 1 tab PO DAILY 0RF hydralazine 25 mg tablet 1 tab PO TID 0RF isosorbide mononitrate 60 mg tablet extended release 24 hr 1 tab PO DAILY 0RF torsemide 100 mg tablet 1 tab PO BID 0RF ascorbic acid (vitamin C) 500 mg Tablet 500 mg PO DAILY 0RF Humulin R U-500 (Conc) Insulin 500 unit/mL solution 10 unit subcut BEDTIME 0RF warfarin 2.5 mg tablet 1 tab PO MOTUWETHFRSA 0RF Hold Instructions: Resume on 08/24/21. Rx Instructions: on hold until 08/24 per dc summary amitriptyline 50 mg tablet 150 mg PO BEDTIME 0RF omeprazole 40 mg Capsule,Delayed Release(Dr/Ec) 40 mg PO DAILY Qty: 30 0RF potassium chloride 20 mEq Tablet,Er Particles/Crystals 40 meq PO BID Qty: 120 0RF Discharge Orders: Discharge Order (Routine); Ordered 08/30/21 Ordered By: Mookie Martinez Diet: advance to usual diet and low salt diet Activity on Discharge: As tolerated Stand Alone Forms: Patient Portal Discharge page Care Plan Goals: Read below Health Concerns: Read below Plan of Treatment: Read below Assessment: You were admitted for treatment of COVID-19 infection. Received 5 days of antiviral with good response. Back to your baseline oxygen of 2 L. Camilo catheter was changed by Urology. To follow-up as outpatient for Camilo removal.
[2021-08-29 16:08] LABS: Glucose, Whole Blood 215 mg/dL (60-115)
--- NOTE | 2021-08-29 16:13 | MHC.CM.PN ---
Male 61 DX Covid+ Plan to discharge to [facility] via BLS. The facility is waiting for authorization from [facility].
[2021-08-29] MEDS: Warfarin Sodium 2.5 MG TABLET PO (18:27)
[2021-08-29 20:19] LABS: Glucose, Whole Blood 181 mg/dL (60-115)
[2021-08-29] MEDS: Amitriptyline HCl 50 MG TABLET 150 MG PO (20:32)
[2021-08-30 00:17] VITALS: PULSE 66; RESP 20; O2SAT 96
[2021-08-30 03:30] VITALS: BP 131/72; PULSE 77; RESP 18; TEMP 36.2; O2SAT 97
[2021-08-30] MEDS: Omeprazole 40 MG CAPSULE.DR PO (05:42)
[2021-08-30 07:06] LABS: Glucose, Whole Blood 174 mg/dL (60-115)
[2021-08-30 07:11] LABS: INTERNATIONAL NORM RATIO 2.4 (0.9-1.1); Prothrombin Time 27.8 SEC (9.9-13.0)
[2021-08-30 07:22] VITALS: BP 119/90; PULSE 82; RESP 20; TEMP 36.1; O2SAT 96
[2021-08-30] MEDS: Insulin Lispro 100 UNIT/ML 3 ML VIAL SUBCUT (07:59)
[2021-08-30] MEDS: Isosorbide Mononitrate 60 MG TAB.ER.24H PO (08:00)
[2021-08-30] MEDS: Amitriptyline HCl 50 MG TABLET PO (08:00)
[2021-08-30] MEDS: 0.9 % Sodium Chloride Flush 3 ML SYRINGE IVFLUSH (08:00)
[2021-08-30] MEDS: Atorvastatin Calcium 80 MG TABLET PO (08:00)
[2021-08-30] MEDS: Metoprolol Succinate ER 25 MG TAB.ER.24H PO (08:00)
[2021-08-30] MEDS: Torsemide 20 MG TABLET 100 MG PO (08:00)
[2021-08-30] MEDS: metOLazone 5 MG TABLET PO (08:00)
[2021-08-30] MEDS: hydrALAZINE HCl 25 MG TABLET PO (08:00)
[2021-08-30] MEDS: Potassium Chloride ER 20 MEQ TAB.ER.PRT 40 MEQ PO (08:00)
[2021-08-30] MEDS: Ascorbic Acid 500 MG TABLET PO (08:01)
== END 2021-08-30 11:05 | disposition skilled nursing facility (03) | DRG 177 ==
LOC: HO.ED 08-19 20:26 → HO.EDOVER 08-19 22:03 → HO.IMC 08-20 14:01
PROVIDERS: Internal Medicine; Physician Assistant; Admitting Provider Hospitalist; Emergency Provider Emergency Medicine; PCP Nurse Practitioner Family; Visit Provider Student in an Organized Health Care Education/Training Program
DX: U07.1 COVID-19 (principal); J96.21 Acute and chronic respiratory failure with hypoxia; G93.41 Metabolic encephalopathy; I13.0 Hypertensive heart and chronic kidney disease with heart failure and stage 1 through stage 4 chronic kidney disease, or unspecified chronic kidney disease; N18.4 Chronic kidney disease, stage 4 (severe); I50.32 Chronic diastolic (congestive) heart failure; E87.3 Alkalosis; I48.20 Chronic atrial fibrillation, unspecified; E78.5 Hyperlipidemia, unspecified; R31.0 Gross hematuria; R33.9 Retention of urine, unspecified; E11.22 Type 2 diabetes mellitus with diabetic chronic kidney disease; E87.6 Hypokalemia; E66.01 Morbid (severe) obesity due to excess calories; Z68.33 Body mass index [BMI] 33.0-33.9, adult; D45 Polycythemia vera; I25.10 Atherosclerotic heart disease of native coronary artery without angina pectoris; I25.2 Old myocardial infarction; Z86.73 Personal history of transient ischemic attack (TIA), and cerebral infarction without residual deficits; Z99.81 Dependence on supplemental oxygen; Z79.4 Long term (current) use of insulin; Z79.01 Long term (current) use of anticoagulants; Z79.899 Other long term (current) drug therapy
CPT/HCPCS: 0241U; 36415; 36600; 70450; 71250; 80048; 80053; 80076; 81001; 81003; 82803; 82947; 83605; 84484; 85025; 85027; 85610; 86140; 87040; 87086; 87088; 87186; 87635; 93005; 94660; 96365; 97110; 97162; 97530; 99285; J0248; J0696; J1100

== ENCOUNTER 2021-09-08 08:20 | Inpatient (IN) | payer MEDICARE, MEDICAID, SELFPAY ==
[2021-09-08] VITALS (7 sets, daily range): BP systolic 117–129; BP diastolic 62–82; PULSE 70–80; RESP 14–18; TEMP 36.1–36.6; O2SAT 86–99; BMI 30.2
--- NOTE | ~2021-09-08 | XR_ITS ---
EXAMINATION: XR CHEST CLINICAL INFORMATION: Elevated BNP COMPARISON: 07/27/2021 TECHNIQUE: Frontal view of the chest was obtained. FINDINGS: Cardiac leads overlie the chest. Lung volumes are low. Central vascular prominence without overt edema. No effusion. No pneumothorax. The cardiomediastinal silhouette is prominent with a calcified aorta. XR/XR chest 1V IMPRESSION: Central vascular prominence without overt edema.
--- NOTE | ~2021-09-08 | CT_ITS ---
EXAMINATION: CT HEAD WITHOUT CONTRAST CLINICAL INFORMATION: Fall. Altered mental status. On Coumadin. COMPARISON: 08/20/2021 TECHNIQUE: Contiguous axial imaging was performed from the skull base to vertex without intravenous contrast. This CT examination was performed using dose optimization techniques as appropriate, variously including the following: * Automated exposure control * Adjustment of mA and/or kV according to patient size (this includes techniques or standardized protocols for targeted exams where dose is matched to indication/reason for exam; i.e. extremities or head) Use of iterative reconstruction technique DLP: 694 mGy-cm. FINDINGS: There is no evidence of acute intracranial hemorrhage or territorial infarction. No abnormal mass effect or midline shift is seen. Chronic left occipital lobe infarct. Reis to white matter differentiation is otherwise well preserved. No extra-axial fluid collections are identified. No hydrocephalus. Proportional prominence of the ventricles and sulcal spaces is consistent with mild volume loss. The osseous structures and soft tissues are normal. Opacification of the left sphenoid sinus. The mastoid air cells and visualized portions of the paranasal sinuses are otherwise well aerated. CT/CT head/brain wo con IMPRESSION: No acute intracranial pathology. Chronic left occipital lobe infarct.
--- NOTE | 2021-09-08 08:32 | ED.GENADULT ---
HPI - General Adult General Chief complaint: Altered Mental Status Stated complaint: INCR CONF/WEAK SINCE T-1,?UTI PER EMS Time Seen by Provider: 09/08/21 08:21 Source: patient and EMS Mode of arrival: EMS Limitations: no limitations History of Present Illness HPI narrative: Patient comes to the emergency room via EMS from a senior living facility in [place]. According to the staff, today patient is not acting as usual. They report that yesterday patient slid out of bed. They found the patient on the floor sitting, leaning on his bed. Patient states that he does not remember this happening. Patient states that overall he is not feeling well. Nothing specific, denies chest pain, no headache, no abdominal pain. Related Data Home Medications Medication Instructions Recorded Confirmed amitriptyline 50 mg tablet 1 tab PO DAILY 05/08/20 09/08/21 atorvastatin 80 mg tablet 1 tab PO BEDTIME 05/08/20 09/08/21 dulaglutide 1.5 mg/0.5 mL 1 mg SUBCUT MO 05/08/20 09/08/21 subcutaneous pen injector (Trulicity) insulin regular hum U-500 conc 500 20 unit SUBCUT QAM 05/08/20 09/08/21 unit/mL subcutaneous soln (Humulin R U-500 (Concentrated) Insulin) metoprolol succinate 25 mg 1 tab PO DAILY 05/08/20 09/08/21 tablet,extended release 24 hr amitriptyline 50 mg tablet 150 mg PO BEDTIME 07/17/21 09/08/21 ascorbic acid (vitamin C) 500 mg 500 mg PO DAILY 07/17/21 09/08/21 tablet hydralazine 25 mg tablet 1 tab PO TID 07/17/21 09/08/21 insulin regular hum U-500 conc 500 10 unit SUBCUT BEDTIME 07/17/21 09/08/21 unit/mL subcutaneous soln (Humulin R U-500 (Concentrated) Insulin) isosorbide mononitrate 60 mg 1 tab PO DAILY 07/17/21 09/08/21 tablet,extended release 24 hr metolazone 5 mg tablet 1 tab PO MOTUWETHFR 07/17/21 09/08/21 torsemide 100 mg tablet 1 tab PO BID 07/17/21 09/08/21 cholecalciferol (vitamin D3) 1,250 1,250 mcg PO TU 09/08/21 09/08/21 mcg (50,000 unit) tablet omeprazole 40 mg capsule,delayed 40 mg PO DAILY@0630 09/08/21 09/08/21 release warfarin 3 mg tablet 3 mg PO DAILY@1800 09/08/21 09/08/21 Previous Rx's Medication Instructions Recorded potassium chloride 20 mEq 40 meq PO BID #120 tab 08/17/21 tablet,extended release(part/cryst) Allergies Allergy/AdvReac Type Severity Reaction Status Date / Time No Known Allergies Allergy Unknown NKDA Verified 08/18/21 13:21 Review of Systems Review of Systems: Constitutional : No Weight loss, No Fever, No Chills, No Night Sweats, complaining of generalized malaise ENT/Mouth : No Hearing loss, No Ear Pain, No Nasal Congestion, No Sinus Pain, No Hoarseness, No sore throat, No Rhinorrhea, No Swallowing Difficulty Eyes: No Eye Pain, No Swelling, No Redness, No Foreign Body, No Discharge, No Vision Changes Cardiovascular : No Chest Pain, No SOB, No Dyspnea on Exertion, No Orthopnea, No Edema, No Palpitations Respiratory : No Cough, No Sputum, No Wheezing, No Smoke Exposure, No Dyspnea Gastrointestinal : No Nausea, No Vomiting, No Diarrhea, No Constipation, No abdominal Pain, No Hematochezia, No Melena Genitourinary : Patient complaining that his Camilo catheter feels uncomfortable, No Dysuria, No Urinary Frequency, No Hematuria, No Urinary Incontinence, No Urgency, No Flank Pain, No Urinary Flow Changes, No Hesitancy Musculoskeletal : No joint pain, No Myalgias, No Joint Swelling Skin : No Skin Lesions, No rash Neuro : Complaining of generalized Weakness, No Numbness, No Paresthesias, No Loss of Consciousness, No Dizziness, No Headache Psych : No Anxiety/Panic, No Depression, No SI/HI/AH/VH, No Social Issues, Heme/Lymph: No Bruising, No Bleeding,No Lymphadenopathy Endocrine : No Polyuria, No Polydipsia, No Temperature Intolerance [facility] Past Medical History Medical History Anasarca Atrial fibrillation CAD (coronary artery disease) Cataract Cholecystectomy planned Chronic combined systolic and diastolic congestive heart failure Chronic respiratory failure CKD (chronic kidney disease) stage 3, GFR 30-59 ml/min CVA (cerebral vascular accident) Diabetes Gross hematuria Heart attack HTN (hypertension) Hyperlipidemia Neuropathy DARLENE on CPAP Permanent atrial fibrillation Polycythemia vera Pulmonary hypertension Toe amputee Urinary retention with incomplete bladder emptying Surgical History History of cholecystectomy Family History Family History Father Diabetes Hx of cancer antigen 125 (CA-125) measurement Mother Diabetes Brother Diabetes Hx of cancer antigen 125 (CA-125) measurement Social History Social History Household Members: Friend(s) 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 Oriented X3. No acute distress. Eyes: Pupils equal, round and reactive to light. ENT: Pharynx normal. Neck: Normal inspection. Neck supple. No lymph nodes noted. No crepitus CVS: Normal heart rate and rhythm. Pulses normal. Normal S1 and S2 Respiratory: No respiratory distress. Breath sounds normal. No Wheezing. No rales Abdomen: Soft and nontender. No rigidity. No distention. Skin: Skin warm and dry. Slightly pale Extremities: No lower extremity edema. No Lacerations. No Rash Neuro: Oriented X 3. No motor deficit. No sensory deficit. Moving all extermities. No slurred speech. Course Course Course Narrative: Patient's head CT is pending. Sepsis is not suspected. Patient does not have a fever, white blood cell count within normal limits. Patient has a baseline abnormally elevated labs, today higher than average. Patient is empirically treated with ceftriaxone for UTI. Patient has a chronic Camilo catheter. Since in the past patient urinalysis is sensitive for ceftriaxone. INR is elevated at 5.1., head CT shows no acute pathology, shows chronic left occipital lobe infarct Patient receiving gentle hydration I discussed the patient with Dr. Matson, patient to be admitted. Medical Decision Making Lab Data Result diagrams: 09/08/21 09:07 09/08/21 08:58 Labs: Lab Results 09/08/21 09/08/21 09/08/21 Range/Units 08:58 08:58 08:58 WBC (4.8-10.8) X10*3/uL RBC (4.60-5.80) X10*6/uL Hgb (14.0-18.0) g/dl Hct (42.0-52.0) % MCV (80.0-98.0) fL MCH (27.0-33.0) pg MCHC (31.0-36.0) g/dl RDW (11.0-16.0) % Plt Count (160-400) X10*3/uL MPV (9.4-12.4) fL Immature Gran % (Auto) (0.0-0.4) % Neut % (Auto) (45-73) % Lymph % (Auto) (20-40) % Hendricks % (Auto) (2-11) % Eos % (Auto) (0-4) % Baso % (Auto) (0-2) % Lymph # (Auto) (1.2-4.9) X10*3/uL Hendricks # (Auto) (0.1-1.2) X10*3/uL Eos # (Auto) (0.0-0.4) X10*3/uL Baso # (Auto) (0.0-0.2) X10*3/uL Abs Immat Gran (auto) (0.00-0.03) X10*3/uL Absolute Neuts (auto) (2.0-8.3) x10*3/uL Absolute Nucleated RBC (0.0-0.012) X10*3/uL Nucleated RBC % (auto) (0.0-0.2) /100WBC PT 60.4 H (9.9-13.0) SEC INR 5.1 H* D (0.9-1.1) Sodium 130 L (135-145) mmol/L Potassium 6.1 H* D (3.3-5.1) mmol/L Chloride 95 L (96-108) mmol/L Carbon Dioxide 19 L (22-29) mmol/L Anion Gap 22 H (12-20) BUN 122 H D (9-16) mg/dL Creatinine 3.95 H (0.5-1.4) mg/dL Estim Creat Clear Calc 24.0 Estimated GFR 16 POC Glucose (60-115) mg/dL Random Glucose 111 (60-115) mg/dL Lactic Acid (0.5-2.0) mmol/L Calcium 8.5 (8.4-10.2) mg/dL Magnesium 2.7 H (1.6-2.6) mg/dL Total Bilirubin 1.6 H (0.0-1.0) mg/dL Direct Bilirubin 0.9 H (0.0-0.5) mg/dL AST 52 H (5-37) U/L ALT 57 H (0-40) U/L Alkaline Phosphatase 254 H D (39-117) U/L Ammonia (13-55) umol/L Troponin I High Sens 9.3 D (<3.5-35.0) ng/L B-Natriuretic Peptide 823 H (<100) pg/mL Total Protein 7.6 (6.5-8.0) g/dL Albumin 2.8 L (3.5-5.0) g/dL Urine Color Urine Appearance Urine pH (5.0-8.0) Ur Specific [place] (1.005-1.025) Urine Protein (NEG-TRACE) MG/DL Urine Glucose (UA) (NEG) MG/DL Urine Ketones (NEG) MG/DL Urine Blood (NEG) Urine Nitrite (NEG) Ur Leukocyte Esterase (NEG) Urine RBC (0) /HPF Urine WBC (0-4) /HPF Urine WBC Clumps Ur Squamous Epith Cells /LPF Ur Renal Epithelial Cell /LPF Urine Bacteria /LPF Urine Opiates Screen (Not Detect) Urine Fentanyl Screen (Not Detect) Ur Barbiturates Screen (Not Detect) Ur Phencyclidine Scrn (Not Detect) Ur Amphetamines Screen (Not Detect) U Benzodiazepines Scrn (Not Detect) Urine Cocaine Screen (Not Detect) U Marijuana (THC) Screen (Not Detect) 09/08/21 09/08/2109/08/22 Range/Units 08:58 08:58 09:07 WBC 9.2 (4.8-10.8) X10*3/uL RBC 3.50 L (4.60-5.80) X10*6/uL Hgb 10.4 L (14.0-18.0) g/dl Hct 32.6 L (42.0-52.0) % MCV 93.1 (80.0-98.0) fL MCH 29.7 (27.0-33.0) pg MCHC 31.9 (31.0-36.0) g/dl RDW 15.8 (11.0-16.0) % Plt Count 299 (160-400) X10*3/uL MPV 9.3 L (9.4-12.4) fL Immature Gran % (Auto) 0.7 H (0.0-0.4) % Neut % (Auto) 83.9 H (45-73) % Lymph % (Auto) 6.1 L (20-40) % Hendricks % (Auto) 8.3 (2-11) % Eos % (Auto) 0.7 (0-4) % Baso % (Auto) 0.3 (0-2) % Lymph # (Auto) 0.6 L (1.2-4.9) X10*3/uL Hendricks # (Auto) 0.8 (0.1-1.2) X10*3/uL Eos # (Auto) 0.1 (0.0-0.4) X10*3/uL Baso # (Auto) 0.0 (0.0-0.2) X10*3/uL Abs Immat Gran (auto) 0.06 H (0.00-0.03) X10*3/uL Absolute Neuts (auto) 7.8 (2.0-8.3) x10*3/uL Absolute Nucleated RBC 0.000 (0.0-0.012) X10*3/uL Nucleated RBC % (auto) 0.0 (0.0-0.2) /100WBC PT (9.9-13.0) SEC INR (0.9-1.1) Sodium (135-145) mmol/L Potassium (3.3-5.1) mmol/L Chloride (96-108) mmol/L Carbon Dioxide (22-29) mmol/L Anion Gap (12-20) BUN (9-16) mg/dL Creatinine (0.5-1.4) mg/dL Estim Creat Clear Calc Estimated GFR POC Glucose (60-115) mg/dL Random Glucose (60-115) mg/dL Lactic Acid (0.5-2.0) mmol/L Calcium (8.4-10.2) mg/dL Magnesium (1.6-2.6) mg/dL Total Bilirubin (0.0-1.0) mg/dL Direct Bilirubin (0.0-0.5) mg/dL AST (5-37) U/L ALT (0-40) U/L Alkaline Phosphatase (39-117) U/L Ammonia (13-55) umol/L Troponin I High Sens (<3.5-35.0) ng/L B-Natriuretic Peptide (<100) pg/mL Total Protein (6.5-8.0) g/dL Albumin (3.5-5.0) g/dL Urine Color YELLOW Urine Appearance HAZY Urine pH 5.5 (5.0-8.0) Ur Specific [place] 1.015 (1.005-1.025) Urine Protein 1+ H (NEG-TRACE) MG/DL Urine Glucose (UA) NEG (NEG) MG/DL Urine Ketones 5 (NEG) MG/DL Urine Blood 2+ H (NEG) Urine Nitrite NEG (NEG) Ur Leukocyte Esterase 2+ H (NEG) Urine RBC 10-14 H (0) /HPF Urine WBC 15-29 H (0-4) /HPF Urine WBC Clumps NOTED Ur Squamous Epith Cells TRACE /LPF Ur Renal Epithelial Cell 1+ /LPF Urine Bacteria 2+ /LPF Urine Opiates Screen Not Detected (Not Detect) Urine Fentanyl Screen Not Detected (Not Detect) Ur Barbiturates Screen Not Detected (Not Detect) Ur Phencyclidine Scrn Not Detected (Not Detect) Ur Amphetamines Screen Not Detected (Not Detect) U Benzodiazepines Scrn Not Detected (Not Detect) Urine Cocaine Screen Not Detected (Not Detect) U Marijuana (THC) Screen Not Detected (Not Detect) 09/08/21 09/08/21 09/08/21 Range/Units 09:07 09:07 11:52 WBC (4.8-10.8) X10*3/uL RBC (4.60-5.80) X10*6/uL Hgb (14.0-18.0) g/dl Hct (42.0-52.0) % MCV (80.0-98.0) fL MCH (27.0-33.0) pg MCHC (31.0-36.0) g/dl RDW (11.0-16.0) % Plt Count (160-400) X10*3/uL MPV (9.4-12.4) fL Immature Gran % (Auto) (0.0-0.4) % Neut % (Auto) (45-73) % Lymph % (Auto) (20-40) % Hendricks % (Auto) (2-11) % Eos % (Auto) (0-4) % Baso % (Auto) (0-2) % Lymph # (Auto) (1.2-4.9) X10*3/uL Hendricks # (Auto) (0.1-1.2) X10*3/uL Eos # (Auto) (0.0-0.4) X10*3/uL Baso # (Auto) (0.0-0.2) X10*3/uL Abs Immat Gran (auto) (0.00-0.03) X10*3/uL Absolute Neuts (auto) (2.0-8.3) x10*3/uL Absolute Nucleated RBC (0.0-0.012) X10*3/uL Nucleated RBC % (auto) (0.0-0.2) /100WBC PT (9.9-13.0) SEC INR (0.9-1.1) Sodium (135-145) mmol/L Potassium (3.3-5.1) mmol/L Chloride (96-108) mmol/L Carbon Dioxide (22-29) mmol/L Anion Gap (12-20) BUN (9-16) mg/dL Creatinine (0.5-1.4) mg/dL Estim Creat Clear Calc Estimated GFR POC Glucose 167 H (60-115) mg/dL Random Glucose (60-115) mg/dL Lactic Acid 1.0 (0.5-2.0) mmol/L Calcium (8.4-10.2) mg/dL Magnesium (1.6-2.6) mg/dL Total Bilirubin (0.0-1.0) mg/dL Direct Bilirubin (0.0-0.5) mg/dL AST (5-37) U/L ALT (0-40) U/L Alkaline Phosphatase (39-117) U/L Ammonia 37 (13-55) umol/L Troponin I High Sens (<3.5-35.0) ng/L B-Natriuretic Peptide (<100) pg/mL Total Protein (6.5-8.0) g/dL Albumin (3.5-5.0) g/dL Urine Color Urine Appearance Urine pH (5.0-8.0) Ur Specific [place] (1.005-1.025) Urine Protein (NEG-TRACE) MG/DL Urine Glucose (UA) (NEG) MG/DL Urine Ketones (NEG) MG/DL Urine Blood (NEG) Urine Nitrite (NEG) Ur Leukocyte Esterase (NEG) Urine RBC (0) /HPF Urine WBC (0-4) /HPF Urine WBC Clumps Ur Squamous Epith Cells /LPF Ur Renal Epithelial Cell /LPF Urine Bacteria /LPF Urine Opiates Screen (Not Detect) Urine Fentanyl Screen (Not Detect) Ur Barbiturates Screen (Not Detect) Ur Phencyclidine Scrn (Not Detect) Ur Amphetamines Screen (Not Detect) U Benzodiazepines Scrn (Not Detect) Urine Cocaine Screen (Not Detect) U Marijuana (THC) Screen (Not Detect) Imaging Data Chest x-ray: Radiologist's impression: Cardiac leads overlie the chest. Lung volumes are low. Central vascular prominence without overt edema. No effusion. No pneumothorax. The cardiomediastinal silhouette is prominent with a calcified aorta. XR/XR chest 1V IMPRESSION: Central vascular prominence without overt edema. CT scan - head: Radiologist's impression: FINDINGS: There is no evidence of acute intracranial hemorrhage or territorial infarction. No abnormal mass effect or midline shift is seen. Chronic left occipital lobe infarct. Reis to white matter differentiation is otherwise well preserved. No extra-axial fluid collections are identified. No hydrocephalus. Proportional prominence of the ventricles and sulcal spaces is consistent with mild volume loss.? The osseous structures and soft tissues are normal. Opacification of the left sphenoid sinus. The mastoid air cells and visualized portions of the paranasal sinuses are otherwise well aerated. ? CT/CT head/brain wo con IMPRESSION: No acute intracranial pathology. Chronic left occipital lobe infarct. Critical Care Time Critical Care Time Critical Care Time: Yes Total Critical Care Time: 45 Attestation: I have personally provided critical care time. Time includes review of lab data, radiology results, discussion with consultants, and monitoring for potential decompensation. Intervention performed as documented. Discharge Plan Discharge Clinical Impression: Acute kidney injury, Acute UTI, Elevated INR, Acute hyperkalemia Patient Disposition: Admitted As Inpatient Prescriptions: No Action atorvastatin 80 mg tablet 1 tab PO BEDTIME 0RF amitriptyline 50 mg tablet 1 tab PO DAILY 0RF Humulin R U-500 (Conc) Insulin 500 unit/mL solution 20 unit subcut QAM 0RF metoprolol succinate 25 mg tablet extended release 24 hr 1 tab PO DAILY 0RF Trulicity 1.5 mg/0.5 mL pen injector 1 mg subcut MO 0RF Rx Instructions: mondays metolazone 5 mg tablet 1 tab PO MOTUWETHFR 0RF hydralazine 25 mg tablet 1 tab PO TID 0RF isosorbide mononitrate 60 mg tablet extended release 24 hr 1 tab PO DAILY 0RF torsemide 100 mg tablet 1 tab PO BID 0RF ascorbic acid (vitamin C) 500 mg Tablet 500 mg PO DAILY 0RF Humulin R U-500 (Conc) Insulin 500 unit/mL solution 10 unit subcut BEDTIME 0RF amitriptyline 50 mg tablet 150 mg PO BEDTIME 0RF potassium chloride 20 mEq Tablet,Er Particles/Crystals 40 meq PO BID Qty: 120 0RF warfarin 3 mg Tablet 3 mg PO DAILY@1800 0RF cholecalciferol (vitamin D3) 1,250 mcg (50,000 unit) Tablet 1,250 mcg PO TU 0RF omeprazole 40 mg capsule,delayed release(DR/EC) 40 mg PO DAILY@0630 0RF
--- NOTE | 2021-09-08 08:48 | PHA.MEDREC ---
Pharmacy Consult ? Medication Reconciliation Pharmacy has completed the medication reconciliation. Patient came from [facility] with a medication list. Maira Diez, DenisD
[2021-09-08 09:04] LABS: Appearance Urine HAZY; Color Urine YELLOW; Glucose Urine UA NEG (NEG); Leukocyte Esterase Urine 2+ (NEG); Nitrite Urine NEG (NEG); PH 5.5 (5.0-8.0); Specific Gravity - Urine 1.015 (1.005-1.025); UACC Culture Trigger YES; Urine Blood 2+ (NEG); Urine Ketones 5 MG/DL (NEG); Urine Protein 1+ MG/DL (NEG-TRACE)
[2021-09-08 09:15] LABS: MANUAL DIFF FLAG NO
[2021-09-08 09:15] LABS: Prothrombin Time 60.4 SEC (9.9-13.0)
[2021-09-08 09:17] LABS: Basophils Percent Auto 0.3 % (0-2); Eosinophils Absolute Auto 0.1 X10*3/uL (0.0-0.4); Eosinophils Percent Auto 0.7 % (0-4); Hematocrit 32.6 % (42.0-52.0); Hemoglobin 10.4 g/dl (14.0-18.0); Imm Gran Abs Auto 0.06 X10*3/uL (0.00-0.03); Imm Gran Pct Auto 0.7 % (0.0-0.4); Lymphocytes Absolute Auto 0.6 X10*3/uL (1.2-4.9); Lymphocytes Percent Auto 6.1 % (20-40); Mean Corpuscular HGB Conc 31.9 g/dl (31.0-36.0); Mean Corpuscular Hemoglobin 29.7 pg (27.0-33.0); Mean Corpuscular Volume 93.1 fL (80.0-98.0); Mean Platelet Volume 9.3 fL (9.4-12.4); Monocytes Absolute Auto 0.8 X10*3/uL (0.1-1.2); Monocytes Percent Auto 8.3 % (2-11); Neutrophils Absolute Auto 7.8 x10*3/uL (2.0-8.3); Neutrophils Percent Auto 83.9 % (45-73); Platelet Count 299 X10*3/uL (160-400); Red Cell Distribution Width 15.8 % (11.0-16.0); White Blood Count 9.2 X10*3/uL (4.8-10.8)
[2021-09-08 09:17] LABS: INTERNATIONAL NORM RATIO 5.1 (0.9-1.1)
[2021-09-08 09:30] LABS: Amphetamine Screen Urine Not Detected (Not Detect); Barbiturates, Urine Not Detected (Not Detect); Benzodiazepines Screen Urine Not Detected (Not Detect); Cannabinoid Screen Urine Not Detected (Not Detect); Cocaine Screen Urine Not Detected (Not Detect); Fentanyl, urine Not Detected (Not Detect); Opiate Screen Urine Not Detected (Not Detect); Phencyclidine Screen Urine Not Detected (Not Detect)
[2021-09-08 09:32] LABS: Bacteria Urine 2+ /LPF; Renal Epithelial Cells Urine 1+ /LPF; Squamous Epithelial Cell Urine TRACE /LPF; WBC Clumps Urine NOTED
[2021-09-08 09:37] LABS: B Type Natriuretic Peptide 823 pg/mL (<100)
[2021-09-08 09:42] LABS: Ammonia 37 umol/L (13-55)
[2021-09-08 09:56] LABS: Alanine Aminotransferase 57 U/L (0-40); Albumin Level 2.8 g/dL (3.5-5.0); Alkaline Phosphatase 254 U/L (39-117); Anion Gap 22 (12-20); Aspartate Amino Transferase 52 U/L (5-37); Bilirubin Direct 0.9 mg/dL (0.0-0.5); Bilirubin Total 1.6 mg/dL (0.0-1.0); Blood Urea Nitrogen 122 mg/dL (9-16); Calcium 8.5 mg/dL (8.4-10.2); Carbon Dioxide 19 mmol/L (22-29); Chloride 95 mmol/L (96-108); Estimated Glomerular Filt Rate 16; Glucose Random 111 mg/dL (60-115); Magnesium 2.7 mg/dL (1.6-2.6); Potassium 6.1 mmol/L (3.3-5.1); Sodium 130 mmol/L (135-145); Total Protein 7.6 g/dL (6.5-8.0)
--- NOTE | 2021-09-08 09:57 | ECG_ITS ---
Test Reason : fall Blood Pressure : / mmHG Vent. Rate : 079 BPM Atrial Rate : 000 BPM P-R Int : 000 ms QRS Dur : 118 ms QT Int : 432 ms P-R-T Axes : 000 -46 083 degrees QTc Int : 495 ms Undetermined rhythm with frequent , and consecutive Premature ventricular complexes Left axis deviation Inferior infarct (cited on or before 25-JUL-2014) Cannot rule out Anterior infarct (cited on or before 17-AUG-2014) Abnormal ECG When compared with ECG of 19-AUG-2021 20:09, Undetermined rhythm Referred By: Larisa Yang Electronically Signed By:KAYCE LANGLEY MD
[2021-09-08] MEDS: Calcium Gluconate/NaCl,Iso-Osm 2 GM/100 ML PLAST..BAG IV (10:29)
[2021-09-08] MEDS: Insulin Regular, Human 100 UNIT/ML 3 ML VIAL 10 UNIT IVPUSH (10:30)
[2021-09-08] MEDS: cefTRIAXone sodium 1 GM in 0.9 % Sodium Chloride 50 ML IV (10:34)
[2021-09-08] MEDS: Sodium Bicarbonate 8.4% 50 MEQ/50 ML SYRINGE IVPUSH (10:39)
--- NOTE | 2021-09-08 10:49 | PC.NURSE ---
pt with pressure ulcer to buttock. photographed and tiger connected to dr. springer. wound covered with a foam dressing 09/08
[2021-09-08 10:55] LABS: Troponin-I High Sensitivity 9.3 ng/L (<3.5-35.0)
[2021-09-08 11:55] LABS: Glucose, Whole Blood 167 mg/dL (60-115)
[2021-09-08] MEDS: 0.9 % Sodium Chloride 1,000 ML 200 ML IVCONT (11:56)
--- NOTE | 2021-09-08 12:04 | PC.NURSE ---
pt picking at the air, reports having VH but unable to communicate what he is seeing at this time. MD Yang notified.
--- NOTE | 2021-09-08 12:07 | PC.NURSE ---
pt repositioned to his Right side to offset the pressure to his buttock.
--- NOTE | 2021-09-08 13:04 | PC.NURSE ---
hospitalist at bedside to see patient - plan to admit pt, he is aware.
[2021-09-08 13:06] LABS: Anion Gap 15 (12-20); Blood Urea Nitrogen 119 mg/dL (9-16); Calcium 9.3 mg/dL (8.4-10.2); Carbon Dioxide 24 mmol/L (22-29); Chloride 97 mmol/L (96-108); Creatinine Clr Calc Pharmacy 24.6; Estimated Glomerular Filt Rate 16; Glucose Random 146 mg/dL (60-115); Potassium 5.2 mmol/L (3.3-5.1); Sodium 131 mmol/L (135-145)
[2021-09-08 13:37] LABS: IDNOW Serial# 16C4AD1C
[2021-09-08 13:38] LABS: COVID-19 Test Negative (Negative)
--- NOTE | 2021-09-08 13:54 | PM.IMHP ---
History of Present Illness Date of Service: 09/08/21 Chief Complaint: encephalopathy, lethargy 61-year-old male with a past medical history of hypertension, hyperlipidemia, diabetes, CHF(EF-30%) with CardioMEMS device in place severe pulmonary hypertension, chronic hypoxic respiratory failure on 2 L of home oxygen at baseline, atrial fibrillation on Coumadin, CKD, history of CVA, polycythemia vera, CVA with no residual deficits, recent prolonged admission to the hospital for COVID-19 infection; discharged on ; presented back to the hospital with a chief complaint of? altered mentation and lethargy. The patient was lethargic and unable to provide any meaningful history. History was taken from emergency provider, AMS and skilled nursing report. According to them to patient is more lethargic over the last few days but this morning he was totally altered as the found him almost on the floor sliding from his bed. He has decreased oral intake and altered mentation with difficulty to waking him up. No reported fever, vomiting, diarrhea. In the emergency blood work was consistent with acute kidney injury, hyperkalemia, with elevated INR and low sodium level. Patient admitted for further evaluation treatment after receiving hyperkalemia management. Review of Systems Review of Systems: Patient not verbal to provide any meaningful history PMFSH Medical History Anasarca Atrial fibrillation CAD (coronary artery disease) Cataract Cholecystectomy planned Chronic combined systolic and diastolic congestive heart failure Chronic respiratory failure CKD (chronic kidney disease) stage 3, GFR 30-59 ml/min CVA (cerebral vascular accident) Diabetes Gross hematuria Heart attack HTN (hypertension) Hyperlipidemia Neuropathy DARLENE on CPAP Permanent atrial fibrillation Polycythemia vera Pulmonary hypertension Toe amputee Urinary retention with incomplete bladder emptying Family History Father Diabetes Hx of cancer antigen 125 (CA-125) measurement Mother Diabetes Brother Diabetes Hx of cancer antigen 125 (CA-125) measurement Surgical History History of cholecystectomy Social History Household Members: Friend(s) Household Members Other:: 2 hide or skin buffer Housing: House Do you presently have visiting nurse or other home services: No Alcohol intake: former Patient Tobacco Use Status: Never used Tobacco Advance Directives: No Advance Directives Information Provided: Yes service: No Current occupational status: disabled Meds Allergies Allergy/AdvReac Type Severity Reaction Status Date / Time No Known Allergies Allergy Unknown NKDA Verified 08/18/21 13:21 Active Medications: Current Medications Acetaminophen (Acetaminophen 325 Mg Tablet) 650 mg PO Q6H PRN PRN Reason: Pain, Mild (Pain Scale 1-3) Sodium Chloride (Ns) 1,000 mls @ 200 mls/hr IVCONT .Q5H ONE Stop: 09/08/21 16:50 Last Admin: 09/08/21 11:56 Dose: 200 mls/hr Documented by: Sodium Chloride (Ns) 1,000 mls @ 100 mls/hr IVCONT .Q10H [facility] Isosorbide Mononitrate (Isosorbide Mononitrate 60 Mg Tab.Er.24h) 60 mg PO DAILY ALEM; Protocol Metoprolol Succinate (Metoprolol Succinate Er 25 Mg Tab.Er.24h) 25 mg PO DAILY [facility]LEM; Protocol Ondansetron HCl (Ondansetron Hcl 4 Mg/2 Ml Vial) 4 mg IVPUSH Q8H PRN PRN Reason: Nausea and Vomiting Pharmacy Consult (Consult Rx Perform Med Rec) 1 each MISCELLANE ONCE PRN PRN Reason: Consult order Sodium Chloride (0.9 % Sodium Chloride Flush 3 Ml Syringe) 3 ml IVFLUSH QSHIFT [facility] Home Medications Medication Instructions Recorded Confirmed Last Taken Type amitriptyline 50 mg tablet 1 tab PO DAILY 05/08/20 09/08/21 08/18/21 History atorvastatin 80 mg tablet 1 tab PO BEDTIME 05/08/20 09/08/21 08/18/21 History dulaglutide 1.5 mg/0.5 mL 1 mg SUBCUT MO 05/08/20 09/08/21 05/03/20 History subcutaneous pen injector (Trulicity) insulin regular hum U-500 conc 500 20 unit SUBCUT QAM 05/08/20 09/08/21 08/18/21 History unit/mL subcutaneous soln (Humulin R U-500 (Concentrated) Insulin) metoprolol succinate 25 mg 1 tab PO DAILY 05/08/20 09/08/2108/18/22 History tablet,extended release 24 hr amitriptyline 50 mg tablet 150 mg PO BEDTIME 07/17/21 09/08/21 08/17/21 History ascorbic acid (vitamin C) 500 mg 500 mg PO DAILY 07/17/21 09/08/21 08/18/21 History tablet hydralazine 25 mg tablet 1 tab PO TID 07/17/21 09/08/21 08/18/21 History insulin regular hum U-500 conc 500 10 unit SUBCUT BEDTIME 07/17/21 09/08/21 08/17/21 History unit/mL subcutaneous soln (Humulin R U-500 (Concentrated) Insulin) isosorbide mononitrate 60 mg 1 tab PO DAILY 07/17/21 09/08/21 08/18/21 History tablet,extended release 24 hr metolazone 5 mg tablet 1 tab PO MOTUWETHFR 07/17/21 09/08/21 08/18/21 History torsemide 100 mg tablet 1 tab PO BID 07/17/21 09/08/21 08/18/21 History cholecalciferol (vitamin D3) 1,250 1,250 mcg PO TU 09/08/21 09/08/21 Unknown History mcg (50,000 unit) tablet omeprazole 40 mg capsule,delayed 40 mg PO DAILY@0630 09/08/21 09/08/21 Unknown History release warfarin 3 mg tablet 3 mg PO DAILY@1800 09/08/21 09/08/21 Unknown History Physical Exam Vital Signs and Narrative: Vital Signs: Last Vital Signs Temp 98 F 09/08/21 08:27 Pulse 77 09/08/21 13:40 Resp 14 09/08/21 13:40 BP 118/75 09/08/21 13:40 Pulse Ox 91 L 09/08/21 13:40 Oxygen Flow Rate 2 09/08/21 08:27 BMI result Body Mass Index 30.2 Const: Other: Constitutional : altered, lethargic, not in distress Neck : Normal inspection, Supple Cardiovascular : RRR, S1 S2, trace bilateral lower extremity edema Respiratory : Fares bilateral air entry, no crackles, wheezes or rhonchi Gastrointestinal: soft, lax, Normal bowel sounds, Non tender Skin : Warm, Dry Neurological : altered mentation, GCS of 10, No focal deficit Results Labs CBC and Chem 7: 09/08/21 09:07 09/08/21 12:43 Labs: Laboratory Results - last 24 hr 09/08/21 09/08/21 09/08/21 08:58 08:58 08:58 MCV MCH MCHC RDW Plt Count MPV Immature Gran % (Auto) Neut % (Auto) Lymph % (Auto) [place] % (Auto) Eos % (Auto) Baso % (Auto) Lymph # (Auto) [place] # (Auto) Eos # (Auto) Baso # (Auto) Abs Immat Gran (auto) Absolute Neuts (auto) Absolute Nucleated RBC Nucleated RBC % (auto) PT 60.4 H INR 5.1 H* D Anion Gap 22 H Estim Creat Clear Calc 24.0 Estimated GFR 16 POC Glucose Random Glucose 111 Lactic Acid Calcium 8.5 Magnesium 2.7 H Total Bilirubin 1.6 H Direct Bilirubin 0.9 H AST 52 H ALT 57 H Alkaline Phosphatase 254 H D Ammonia B-Natriuretic Peptide 823 H Total Protein 7.6 Albumin 2.8 L Urine Color Urine Appearance Urine pH Ur Specific [place] Urine Protein Urine Glucose (UA) Urine Ketones Urine Blood Urine Nitrite Ur Leukocyte Esterase Urine RBC Urine WBC Urine WBC Clumps Ur Squamous Epith Cells Ur Renal Epithelial Cell Urine Bacteria Urine Opiates Screen Urine Fentanyl Screen Ur Barbiturates Screen Ur Phencyclidine Scrn Ur Amphetamines Screen U Benzodiazepines Scrn Urine Cocaine Screen U Marijuana (THC) Screen COVID-19 (POWER) COVID-19 Clin Com 09/08/21 09/08/21 09/08/21 08:58 08:58 09:07 MCV 93.1 MCH 29.7 MCHC 31.9 RDW 15.8 Plt Count 299 MPV 9.3 L Immature Gran % (Auto) 0.7 H Neut % (Auto) 83.9 H Lymph % (Auto) 6.1 L [place] % (Auto) 8.3 Eos % (Auto) 0.7 Baso % (Auto) 0.3 Lymph # (Auto) 0.6 L [place] # (Auto) 0.8 Eos # (Auto) 0.1 Baso # (Auto) 0.0 Abs Immat Gran (auto) 0.06 H Absolute Neuts (auto) 7.8 Absolute Nucleated RBC 0.000 Nucleated RBC % (auto) 0.0 PT INR Anion Gap Estim Creat Clear Calc Estimated GFR POC Glucose Random Glucose Lactic Acid Calcium Magnesium Total Bilirubin Direct Bilirubin AST ALT Alkaline Phosphatase Ammonia B-Natriuretic Peptide Total Protein Albumin Urine Color YELLOW Urine Appearance HAZY Urine pH 5.5 Ur Specific [place] 1.015 Urine Protein 1+ H Urine Glucose (UA) NEG Urine Ketones 5 Urine Blood 2+ H Urine Nitrite NEG Ur Leukocyte Esterase 2+ H Urine RBC 10-14 H Urine WBC 15-29 H Urine WBC Clumps NOTED Ur Squamous Epith Cells TRACE Ur Renal Epithelial Cell 1+ Urine Bacteria 2+ Urine Opiates Screen Not Detected Urine Fentanyl Screen Not Detected Ur Barbiturates Screen Not Detected Ur Phencyclidine Scrn Not Detected Ur Amphetamines Screen Not Detected U Benzodiazepines Scrn Not Detected Urine Cocaine Screen Not Detected U Marijuana (THC) Screen Not Detected COVID-19 (POWER) COVID-19 [employer] [place] 09/08/21 09/08/21 09/08/21 09:07 09:07 11:52 MCV MCH MCHC RDW Plt Count MPV Immature Gran % (Auto) Neut % (Auto) Lymph % (Auto) [place] % (Auto) Eos % (Auto) Baso % (Auto) Lymph # (Auto) [place] # (Auto) Eos # (Auto) Baso # (Auto) Abs Immat Gran (auto) Absolute Neuts (auto) Absolute Nucleated RBC Nucleated RBC % (auto) PT INR Anion Gap Estim Creat Clear Calc Estimated GFR POC Glucose 167 H Random Glucose Lactic Acid 1.0 Calcium Magnesium Total Bilirubin Direct Bilirubin AST ALT Alkaline Phosphatase Ammonia 37 B-Natriuretic Peptide Total Protein Albumin Urine Color Urine Appearance Urine pH Ur Specific [place] Urine Protein Urine Glucose (UA) Urine Ketones Urine Blood Urine Nitrite Ur Leukocyte Esterase Urine RBC Urine WBC Urine WBC Clumps Ur Squamous Epith Cells Ur Renal Epithelial Cell Urine Bacteria Urine Opiates Screen Urine Fentanyl Screen Ur Barbiturates Screen Ur Phencyclidine Scrn Ur Amphetamines Screen U Benzodiazepines Scrn Urine Cocaine Screen U Marijuana (THC) Screen COVID-19 (POWER) COVID-19 [employer] [place] 09/08/21 09/08/21 12:43 13:09 MCV MCH MCHC RDW Plt Count MPV Immature Gran % (Auto) Neut % (Auto) Lymph % (Auto) [place] % (Auto) Eos % (Auto) Baso % (Auto) Lymph # (Auto) [place] # (Auto) Eos # (Auto) Baso # (Auto) Abs Immat Gran (auto) Absolute Neuts (auto) Absolute Nucleated RBC Nucleated RBC % (auto) PT INR Anion Gap 15 Estim Creat Clear Calc 24.6 Estimated GFR 16 POC Glucose Random Glucose 146 H Lactic Acid Calcium 9.3 D Magnesium Total Bilirubin Direct Bilirubin AST ALT Alkaline Phosphatase Ammonia B-Natriuretic Peptide Total Protein Albumin Urine Color Urine Appearance Urine pH Ur Specific [place] Urine Protein Urine Glucose (UA) Urine Ketones Urine Blood Urine Nitrite Ur Leukocyte Esterase Urine RBC Urine WBC Urine WBC Clumps Ur Squamous Epith Cells Ur Renal Epithelial Cell Urine Bacteria Urine Opiates Screen Urine Fentanyl Screen Ur Barbiturates Screen Ur Phencyclidine Scrn Ur Amphetamines Screen U Benzodiazepines Scrn Urine Cocaine Screen U Marijuana (THC) Screen COVID-19 (POWER) Negative COVID-19 Clin Com See Note Imaging Radiologist's Impressions: Impressions Head CT 09/08/21 09:22 IMPRESSION: No acute intracranial pathology. Chronic left occipital lobe infarct. Chest X-Ray 09/08/21 11:20 IMPRESSION: Central vascular prominence without overt edema. Assessment and Plan (1) Acute kidney injury: Status: Acute (2) Elevated INR: Status: Acute (3) Acute hyperkalemia: Status: Acute (4) Toxic metabolic encephalopathy: Status: Acute (5) Hyponatremia: Status: Acute Plan 61-year-old male with a past medical history of hypertension, hyperlipidemia, diabetes, CHF(EF-30%) with CardioMEMS device in place severe pulmonary hypertension, chronic hypoxic respiratory failure on 2 L of home oxygen at baseline, atrial fibrillation on Coumadin, CKD, history of CVA, polycythemia vera, CVA with no residual deficits, recent prolonged admission to the hospital for COVID-19 infection; discharged on ; presented back to the hospital with a chief complaint of? altered mentation and lethargy. Toxic metabolic encephalopathy 2/2 Monty on CKD 3 Hyperkalemia potassium of 6.1 at presentation, improved with treatment BUN to creatinine more than 20, likely prerenal Hold nephrotoxic medications Hold potassium supplements Gentle IV fluid Get Nephrology input Urine studies, follow BMP Hyponatremia Sodium of 130 Likely secondary to Diuresis hold diuretics and monitor BMP with IVF Supratherapeutic INR No source of bleeding Hold warfarin Toxic metabolic encephalopathy Secondary to uremia, amitriptyline treat Monty I Hold amitriptyline Gentle hydration and recurrent redirection Bacteriuria Urine culture growing E coli and Enterococcus F Discussed with ID, likely contaminant Antibiotics discontinued Urology changed the Camilo catheter on August 26 Urinary retention Continue Camilo for now, to follow with Urology as outpatient for removal Physical deconditioning Secondary to prolonged hospital stay PT recommended SNF placement, waiting bed availability DM insulin DARLENE cpap CAD statin chronic diastolic chf Hold torsemide, metolazone htn hold hydralazine, to restart once blood pressure stable continue imdur chronic afib Subtherapeutic INR warfarin on hold Continue toprol Follow INR ?DVT PPX Warfarin expected length of the stay would be 2 or more nights for evaluation and treatment of acute kidney injury causing toxic metabolic encephalopathy. Quality Stroke Does the patient have a stroke diagnosis?: No VTE Prior VTE?: No VTE Risk Level:: Medical - moderate - high VTE Device Contraindication: Treatment Not Indicated VTE Drug Contraindication: N/A - Med Ordered
[2021-09-08] MEDS: 0.9 % Sodium Chloride 1,000 ML 100 ML IVCONT (14:02)
[2021-09-08 14:37] LABS: Creatinine Urine 96.18 mg/dL; Sodium Urine Random < 20.0 mmol/L
--- NOTE | 2021-09-08 15:37 | PC.NURSE ---
Respiratory at bedside for BiPaP assessment. at this time pt remains on 4L NC
[2021-09-08 16:11] LABS: Glucose, Whole Blood 128 mg/dL (60-115)
[2021-09-08 18:20] LABS: Glucose, Whole Blood 114 mg/dL (60-115)
[2021-09-08 21:35] LABS: Glucose, Whole Blood 138 mg/dL (60-115)
[2021-09-09] VITALS (8 sets, daily range): BP systolic 108–139; BP diastolic 67–89; PULSE 62–84; RESP 12–23; TEMP 36.1–37; O2SAT 96–100; BMI 28.7
[2021-09-09] MEDS: 0.9 % Sodium Chloride 1,000 ML 100 ML IVCONT ×2 (04:43→16:34)
[2021-09-09 07:01] LABS: Hematocrit 30.5 % (42.0-52.0); Hemoglobin 9.6 g/dl (14.0-18.0); Mean Corpuscular HGB Conc 31.5 g/dl (31.0-36.0); Mean Corpuscular Hemoglobin 29.4 pg (27.0-33.0); Mean Corpuscular Volume 93.6 fL (80.0-98.0); Platelet Count 305 X10*3/uL (160-400); Red Blood Count 3.26 X10*6/uL (4.60-5.80); Red Cell Distribution Width 15.8 % (11.0-16.0); White Blood Count 9.1 X10*3/uL (4.8-10.8)
[2021-09-09 07:14] LABS: Prothrombin Time 70.1 SEC (9.9-13.0)
[2021-09-09 07:26] LABS: Glucose, Whole Blood 152 mg/dL (60-115)
[2021-09-09 07:30] LABS: INTERNATIONAL NORM RATIO 5.9 (0.9-1.1)
[2021-09-09] MEDS: Insulin Lispro 100 UNIT/ML 3 ML VIAL SUBCUT ×4 (08:00→20:24)
[2021-09-09] MEDS: 0.9 % Sodium Chloride Flush 3 ML SYRINGE IVFLUSH ×2 (08:01→20:26)
[2021-09-09 08:31] LABS: Anion Gap 14 (12-20); Blood Urea Nitrogen 109 mg/dL (9-16); Calcium 8.6 mg/dL (8.4-10.2); Carbon Dioxide 25 mmol/L (22-29); Chloride 99 mmol/L (96-108); Creatinine Clr Calc Pharmacy 31.4; Estimated Glomerular Filt Rate 22; Glucose Random 166 mg/dL (60-115); Magnesium 2.7 mg/dL (1.6-2.6); Potassium 4.5 mmol/L (3.3-5.1); Sodium 133 mmol/L (135-145)
[2021-09-09] MEDS: Isosorbide Mononitrate 60 MG TAB.ER.24H PO (09:29)
[2021-09-09] MEDS: Metoprolol Succinate ER 25 MG TAB.ER.24H PO (09:29)
--- NOTE | 2021-09-09 10:13 | P.PNIM_ITS ---
Subjective Subjective Date of Service: 09/09/21 Interval History: The patient was seen and evaluated this morning Laying in bed, feels much better this morning and more aware of himself Kidney function improving Denies any fever, chills or chest pain No reported other overnight events. Systemic review: No fever, chills but reports generalized weakness No chest pain, palpitation No shortness of breath or coughing No abdominal pain, nausea or vomiting No urinary symptoms No any rash or wounds Physical Exam Vital Signs: Vital Signs: Last Vital Signs Temp 97.4 F 09/09/21 07:45 Pulse 73 09/09/21 07:45 Resp 16 09/09/21 08:18 BP 122/89 09/09/21 07:45 Pulse Ox 99 09/09/21 07:45 Oxygen Flow Rate 2 09/08/21 08:27 BMI result Body Mass Index 28.7 Const: Other: Constitutional : alert, interactive, not in distress Neck : Normal inspection, Supple Cardiovascular : RRR, S1 S2, trace bilateral lower extremity edema Respiratory : Fares bilateral air entry, no crackles, wheezes or rhonchi Gastrointestinal: soft, lax, Normal bowel sounds, Non tender Skin : Warm, Dry, Camilo catheter in place Neurological : alert , oriented to self and place, No focal deficit but generally physically deconditioned Objective Data Active Medications Acetaminophen (Acetaminophen 325 Mg Tablet) 650 mg PO Q6H PRN PRN Reason: Pain, Mild (Pain Scale 1-3) Sodium Chloride (Ns) 1,000 mls @ 100 mls/hr IVCONT .Q10H [facility] Stop: 09/09/21 20:00 Last Admin: 09/09/21 04:43 Dose: 100 mls/hr Documented by: JOSE Insulin Human Lispro (Insulin Lispro 100 Unit/Ml 3 Ml Vial) 0 unit SUBCUT QIDACHS [facility]; Protocol Last Admin: 09/09/21 08:00 Dose: 2 unit Documented by: ANTWON Isosorbide Mononitrate (Isosorbide Mononitrate 60 Mg Tab.Er.24h) 60 mg PO DAILY [facility]; Protocol Last Admin: 09/09/21 09:29 Dose: 60 mg Documented by: ANTWON Metoprolol Succinate (Metoprolol Succinate Er 25 Mg Tab.Er.24h) 25 mg PO DAILY [facility]; Protocol Last Admin: 09/09/21 09:29 Dose: 25 mg Documented by: ANTWON Ondansetron HCl (Ondansetron Hcl 4 Mg/2 Ml Vial) 4 mg IVPUSH Q8H PRN PRN Reason: Nausea and Vomiting Pharmacy Consult (Consult Rx Perform Med Rec) 1 each MISCELLANE ONCE PRN PRN Reason: Consult order Sodium Chloride (0.9 % Sodium Chloride Flush 3 Ml Syringe) 3 ml IVFLUSH QSHIFT [facility] Last Admin: 09/09/21 08:01 Dose: 3 ml Documented by: ANTWON Labs CBC & Chem 7: 09/09/21 06:46 09/09/21 06:46 Labs: Laboratory Results - last 24 hr 09/08/21 09/08/21 09/08/21 09:00 11:52 12:43 MCV MCH MCHC RDW Plt Count MPV Absolute Nucleated RBC Nucleated RBC % (auto) PT INR Anion Gap 15 Estim Creat Clear Calc 24.6 Estimated GFR 16 POC Glucose 167 H Random Glucose 146 H Calcium 9.3 D Magnesium Ur Random Sodium < 20.0 Urine Creatinine 96.18 COVID-19 (POWER) [id number] 09/08/21 09/08/21 09/08/21 13:09 16:07 18:17 MCV MCH MCHC RDW Plt Count MPV Absolute Nucleated RBC Nucleated RBC % (auto) PT INR Anion Gap Estim Creat Clear Calc Estimated GFR POC Glucose 128 H 114 Random Glucose Calcium Magnesium Ur Random Sodium Urine Creatinine COVID-19 (POWER) Negative COVID-19 I & Combine See Note 09/08/21 09/09/21 09/09/21 21:31 06:46 06:46 MCV 93.6 MCH 29.4 MCHC 31.5 RDW 15.8 Plt Count 305 MPV 9.0 L Absolute Nucleated RBC 0.000 Nucleated RBC % (auto) 0.0 PT INR Anion Gap 14 Estim Creat Clear Calc 31.4 Estimated GFR 22 POC Glucose 138 H Random Glucose 166 H Calcium 8.6 D Magnesium 2.7 H Ur Random Sodium Urine Creatinine COVID-19 (POWER) COVID-[employer] Clin Com 09/09/21 09/09/21 06:46 07:19 MCV MCH MCHC RDW Plt Count MPV Absolute Nucleated RBC Nucleated RBC % (auto) PT 70.1 H INR 5.9 H* Anion Gap Estim Creat Clear Calc Estimated GFR POC Glucose 152 H Random Glucose Calcium Magnesium Ur Random Sodium Urine Creatinine COVID-19 (POWER) COVID-19 Clin Com Microbiology Microbiology Results: Microbiology 09/08/21 10:21 Urine Culture - Preliminary Urine Catheterized - Camilo Catheter Enterococcus/Streptococcus sp Assessment and Plan (1) Hyponatremia: Status: Acute (2) Toxic metabolic encephalopathy: Status: Acute (3) Acute kidney injury: Status: Acute (4) Acute hyperkalemia: Status: Acute (5) Elevated INR: Status: Acute Plan 61-year-old male with a past medical history of hypertension, hyperlipidemia, diabetes, CHF(EF-30%) with CardioMEMS device in place severe pulmonary hypertension, chronic hypoxic respiratory failure on 2 L of home oxygen at baseline, atrial fibrillation on Coumadin, CKD, history of CVA, polycythemia vera, CVA with no residual deficits, recent prolonged admission to the hospital for COVID-19 infection; discharged on ; presented back to the hospital with a chief complaint of? altered mentation and lethargy. Toxic metabolic encephalopathy , improved 2/2 [place] on CKD 3 Creatinine improving along with BUN Hold nephrotoxic medications Hold potassium supplements continue Gentle IV fluid pending Nephrology input Urine studies, follow BMP Hyperkalemia Resolved Hyponatremia Sodium improving to 133 Likely secondary to Diuresis hold diuretics and monitor BMP with IVF Supratherapeutic INR INR 5.9 No source of bleeding Hold warfarin Toxic metabolic encephalopathy Secondary to uremia, amitriptyline Improving Hold amitriptyline Gentle hydration and recurrent redirection Bacteriuria Urine culture last admission grew E coli and Enterococcus F Discussed with ID, likely contaminant with no need to treatment Urology changed the Camilo catheter on August 26 hold on antibiotic for now monitor urine cultures For any growth Urinary retention Continue Camilo for now, to follow with Urology as outpatient for removal Physical deconditioning Secondary to prolonged hospital stay PT recommended SNF placement, waiting bed availability DM insulin DARLENE cpap CAD statin chronic diastolic chf Hold torsemide, metolazone htn hold hydralazine, to restart once blood pressure stable continue imdur chronic afib Subtherapeutic INR warfarin on hold Continue toprol Follow INR ?DVT PPX Warfarin patient will continue to need in hospital treatment for acute kidney injury and encephalopathy treatment pending Nephrology evaluation. Quality Stroke Does the patient have a stroke diagnosis?: No VTE Prior VTE?: No VTE Risk Level:: Medical - moderate - high VTE Device Contraindication: Treatment Not Indicated VTE Drug Contraindication: N/A - Med Ordered
[2021-09-09 11:30] LABS: Glucose, Whole Blood 165 mg/dL (60-115)
--- NOTE | 2021-09-09 11:33 | MHC.CM.PN ---
Addendum entered by Sachi Hernández 09/09/21 15:34: IMM 09/09/21 Male 61 DX AMS Patient was here with Covid and DC to [facility]. He returns with AMS. He is A+OX3. The goal is to continue STR. The Pt and HCP Ace do not want him to return to [place]. They requested a referral to [facility]. The facility states that they are OON. They anticipate receiving authorization for rehab. [facility] was 1st choice initially for STR. A referral was sent at the patients request. They have been informed that the patient will not be returning. Patient will transport via BLS. Original Note: Per MD rounds DC Sunday. He will return to [facility] via BLS. A PT vanessa has been requested for insurance Authorization.
--- NOTE | 2021-09-09 13:31 | CONS_ITS ---
DATE OF SERVICE: 09/09/2021 REASON FOR CONSULTATION: I was asked to see patient to assist in evaluation and management of patient's advanced renal dysfunction with baseline creatinine in the 2.5 to 3 range on the backdrop of severe cardiac dysfunction and cardiorenal syndrome. HISTORY OF PRESENT ILLNESS: In summary, the patient is a 61-year-old gentleman, well known to the renal service, who was admitted to the hospital with altered mental status. Overall, he is doing better now and he does not recall how he ended up here in the hospital. He has multiple severe chronic medical problems including advanced chronic kidney disease and diastolic dysfunction with recurrent episodes of decompensated heart failure. He has a history of hypertension, hyperlipidemia, diabetes. He has a CardioMEMS in place because of severe pulmonary hypertension and being monitored closely by the heart failure team. History of atrial fibrillation, stroke, polycythemia vera, and he was hospitalized for prolonged period time for episode of COVID. Discharged on 08/29. Overall, he tells me he is feeling better. His breathing is improved. He no longer feels confused. There is concern that maybe 1 of his medications Elavil may have been too high in playing a role. PAST MEDICAL HISTORY: As noted above. MEDICATIONS ON ADMISSION: Listed as including Elavil 50 mg once a day, Lipitor 80, metoprolol, vitamin C, hydralazine, insulin, Imdur, metolazone, torsemide 100 mg twice a day, omeprazole, and Coumadin. His current medications are noted in the MAR. ALLERGIES: HE HAS NO KNOWN DRUG ALLERGIES. SOCIAL HISTORY: He is a nonsmoker, nondrinker. No illicit drug use. Denies taking NSAIDs. REVIEW OF SYSTEMS: As noted above. PHYSICAL EXAMINATION: VITAL SIGNS: Blood pressure 110/70 with a heart rate in the 80s. He is afebrile. He is on 3 L of oxygen. HEENT: Head is atraumatic and normocephalic. NECK: Supple. Mucous membranes moist. LUNGS: Breath sounds decreased at the bases. CARDIAC: Regular rate and rhythm. ABDOMEN: Soft. EXTREMITIES: Trace edema. LABORATORY DATA: From today; sodium 133, potassium 4.5, chloride 99, BUN 109, creatinine 2.95. Yesterday, BUN and creatinine were 119 and 3.86. As mentioned, baseline creatinine seems to be in the 2 to 2.5 range. Hemoglobin 9.6, hematocrit 30.5, white blood cell count 9.1, platelet count 305. IMPRESSION: Acute kidney injury on advanced chronic kidney disease in the patient with cardiorenal syndrome, diabetes, hypertension, and now admitted with altered mental status. 1. Acute kidney injury. This is improved with holding his diuretics and gentle IV hydration. This is consistent with cardiorenal syndrome and him having a very narrow path going from either renal failure to decompensated heart failure. He actually looks pretty good from a volume status standpoint presently. 2. Advanced chronic kidney disease. As mentioned, this is a combination of diabetic hypertensive renal disease along with chronic cardiorenal syndrome. 3. Altered mental status. This has improved and I suspect it is more his medications and particularly the Elavil than the uremia. 4. Heart failure with pulmonary hypertension. Closely followed by the heart failure team and has a CardioMEMS unit in placed. 5. Diabetes. SUGGESTIONS: At this time include continue to hold his diuretics. Can hold his IV fluids now, his renal function has improved. We will need to restart his diuretics and monitor him very closely. I will follow the patient with the team. MD AMIRA Terrazas/VLAD / [id number]
--- NOTE | 2021-09-09 15:41 | PC.NURSE ---
Skin/wound assessment completed. Patient has a Stage 2 pressure injury to right buttock and Stage 2 to coccyx. Woundres' gel applied to wound beds covered with foam dressing. These wounds have improved from his last admission here. No other skin issues noted.
--- NOTE | 2021-09-09 15:52 | MHC.CLN ---
RE: CONSULT PT WITH INCREASED NUTRITION RISK R/T PRESSURE INJURIES PT TRIGGERING FOR 31% SIGNIFICANT WT LOSS X 1 YEAR DIET RX: 1800DM-PT WITH INCREASED NUTRITION NEEDS; WILL INCREASE KCALS RECOMMEND ADDING GLUCERNA TID TO INCREASE KCALS AND PROMOTE WOUND HEALING SUPP TO PROVIDE 711KCALS, 30G PROTEIN MONITOR PO INTAKE CLOSELY SEE ALSO FULL CLINICAL NUTRITION ASSESSMENT
[2021-09-09 16:01] LABS: Glucose, Whole Blood 171 mg/dL (60-115)
[2021-09-09 19:54] LABS: Glucose, Whole Blood 161 mg/dL (60-115)
[2021-09-09] MEDS: polyethylene glycoL 3350 17 GM POWD.PACK PO (20:23)
[2021-09-10 03:26] VITALS: BP 105/77; PULSE 62; RESP 20; TEMP 36.2; O2SAT 94
[2021-09-10 06:47] LABS: INTERNATIONAL NORM RATIO 3.5 (0.9-1.1)
[2021-09-10 06:55] LABS: Anion Gap 12 (12-20); Blood Urea Nitrogen 100 mg/dL (9-16); Calcium 8.5 mg/dL (8.4-10.2); Carbon Dioxide 23 mmol/L (22-29); Chloride 100 mmol/L (96-108); Creatinine Clr Calc Pharmacy 40.7; Estimated Glomerular Filt Rate 30; Glucose Random 152 mg/dL (60-115); Potassium 4.2 mmol/L (3.3-5.1); Sodium 131 mmol/L (135-145)
[2021-09-10 07:24] VITALS: BP 124/74; PULSE 64; RESP 20; TEMP 36.2; O2SAT 98
[2021-09-10 07:25] LABS: Glucose, Whole Blood 157 mg/dL (60-115)
[2021-09-10] MEDS: Metoprolol Succinate ER 25 MG TAB.ER.24H PO (08:08)
[2021-09-10] MEDS: Insulin Lispro 100 UNIT/ML 3 ML VIAL SUBCUT ×4 (08:08→21:10)
[2021-09-10] MEDS: Isosorbide Mononitrate 60 MG TAB.ER.24H PO (08:09)
[2021-09-10] MEDS: 0.9 % Sodium Chloride Flush 3 ML SYRINGE IVFLUSH ×2 (08:09→17:00)
[2021-09-10 11:07] VITALS: BP 121/68; PULSE 75; RESP 20; TEMP 36.5; O2SAT 100
[2021-09-10 11:08] LABS: Glucose, Whole Blood 177 mg/dL (60-115)
--- NOTE | 2021-09-10 13:17 | HO.PM.IMPN ---
Subjective Subjective Date of Service: 09/10/21 Interval History: The patient was seen and evaluated this morning Laying in bed, feels Significant improvement Kidney function improving urine culture growing Enterococcus facial list Denies any fever, chills or chest pain No reported other overnight events. Systemic review: No fever, chills but reports generalized weakness No chest pain, palpitation No shortness of breath or coughing No abdominal pain, nausea or vomiting Pain around the Camilo catheter No any rash or wounds Review of Systems Patient not verbal to provide any meaningful history Physical Exam Vital Signs: Vital Signs: Last Vital Signs Temp 97.7 F 09/10/21 11:07 Pulse 75 09/10/21 11:07 Resp 20 09/10/21 11:07 BP 121/68 09/10/21 11:07 Pulse Ox 100 09/10/21 11:07 Oxygen Flow Rate 2 09/08/21 08:27 BMI result Body Mass Index 28.7 Const: Other: Constitutional : alert, interactive, not in distress Neck : Normal inspection, Supple Cardiovascular : RRR, S1 S2, trace bilateral lower extremity edema Respiratory : Fares bilateral air entry, no crackles, wheezes or rhonchi Gastrointestinal: soft, lax, Normal bowel sounds, Non tender Skin : Warm, Dry, Camilo catheter in place Neurological : alert , oriented to self and place, No focal deficit but generally physically deconditioned Objective Data Active Medications Acetaminophen (Acetaminophen 325 Mg Tablet) 650 mg PO Q6H PRN PRN Reason: Pain, Mild (Pain Scale 1-3) Insulin Human Lispro (Insulin Lispro 100 Unit/Ml 3 Ml Vial) 0 unit SUBCUT QIDACHS [facility]; Protocol Last Admin: 09/10/21 11:16 Dose: 2 unit Documented by: GALEN Isosorbide Mononitrate (Isosorbide Mononitrate 60 Mg Tab.Er.24h) 60 mg PO DAILY [facility]; Protocol Last Admin: 09/10/21 08:09 Dose: 60 mg Documented by: GALEN Metoprolol Succinate (Metoprolol Succinate Er 25 Mg Tab.Er.24h) 25 mg PO DAILY [facility]; Protocol Last Admin: 09/10/21 08:08 Dose: 25 mg Documented by: GALEN Ondansetron HCl (Ondansetron Hcl 4 Mg/2 Ml Vial) 4 mg IVPUSH Q8H PRN PRN Reason: Nausea and Vomiting Pharmacy Consult (Consult Rx Perform Med Rec) 1 each MISCELLANE ONCE PRN PRN Reason: Consult order Polyethylene Glycol (Polyethylene Glycol 3350 17 Gm Powd.Pack) 17 gm PO DAILY [facility] Last Admin: 09/10/21 08:20 Dose: Not Given Documented by: GALEN Non-Admin Reason: Patient Refused Sodium Chloride (0.9 % Sodium Chloride Flush 3 Ml Syringe) 3 ml IVFLUSH QSHIFT [facility] Last Admin: 09/10/21 08:09 Dose: 3 ml Documented by: GALEN Labs CBC & Chem 7: 09/09/21 06:46 09/10/21 06:14 Labs: Laboratory Results - last 24 hr 09/09/21 09/09/21 09/10/21 15:58 19:51 06:14 PT INR Anion Gap 12 Estim Creat Clear Calc 40.7 Estimated GFR 30 POC Glucose 171 H 161 H Random Glucose 152 H Calcium 8.5 09/10/21 09/10/21 09/10/21 06:14 07:22 11:05 PT 41.0 H INR 3.5 H D Anion Gap Estim Creat Clear Calc Estimated GFR POC Glucose 157 H 177 H Random Glucose Calcium Microbiology Microbiology Results: Microbiology 09/08/21 10:21 Blood Culture - Preliminary Blood - Venous No growth after 48 hours. 09/08/21 10:21 Blood Culture - Preliminary Blood - Venous No growth after 48 hours. 09/08/21 10:21 Urine Culture - Final Urine Catheterized - Camilo Catheter Enterococcus faecalis Assessment and Plan (1) Hyponatremia: Status: Acute (2) Toxic metabolic encephalopathy: Status: Acute (3) Acute kidney injury: Status: Acute (4) Elevated INR: Status: Acute Plan 61-year-old male with a past medical history of hypertension, hyperlipidemia, diabetes, CHF(EF-30%) with CardioMEMS device in place severe pulmonary hypertension, chronic hypoxic respiratory failure on 2 L of home oxygen at baseline, atrial fibrillation on Coumadin, CKD, history of CVA, polycythemia vera, CVA with no residual deficits, recent prolonged admission to the hospital for COVID-19 infection; discharged on ; presented back to the hospital with a chief complaint of? altered mentation and lethargy. Toxic metabolic encephalopathy , improved 2/2 Hesham on CKD 3 Creatinine improving along with BUN Hold nephrotoxic medications Hold potassium supplements discontinue Gentle IV fluid nephrology input appreciated to wean down amitriptyline follow BMP Hyperkalemia Resolved Hyponatremia Sodium improving to 133 Likely secondary to Diuresis hold diuretics and monitor BMP with IVF Supratherapeutic INR INR 3.9 No source of bleeding Hold warfarin Toxic metabolic encephalopathy Secondary to uremia, amitriptyline Improving Hold amitriptyline Gentle hydration and recurrent redirection Bacteriuria Urine culture last admission grew E coli and Enterococcus F Discussed with ID, likely contaminant with no need to treatment Urology changed the Camilo catheter on August 26 hold on antibiotic for now monitor urine cultures For any growth Urinary retention Discussed with Urology Remove Camilo catheters and monitor of bladder scan To learn self-catheterization Physical deconditioning Secondary to prolonged hospital stay PT recommended SNF placement, waiting bed availability DM insulin DARLENE cpap CAD statin chronic diastolic chf Hold torsemide, metolazone htn hold hydralazine, to restart once blood pressure stable continue imdur chronic afib Subtherapeutic INR warfarin on hold Continue toprol Follow INR ?DVT PPX Warfarin patient will continue to need in hospital treatment for acute kidney injury and removal of Camilo and monitor for urinary retention Quality Stroke Does the patient have a stroke diagnosis?: No VTE Prior VTE?: No VTE Risk Level:: Medical - moderate - high VTE Device Contraindication: Treatment Not Indicated VTE Drug Contraindication: N/A - Med Ordered
[2021-09-10 16:00] VITALS: BP 119/70; PULSE 80; RESP 20; TEMP 36.5; O2SAT 99
[2021-09-10 16:59] LABS: Glucose, Whole Blood 166 mg/dL (60-115)
--- NOTE | 2021-09-10 17:45 | PM.PNNEP ---
Subjective Subjective Date of Service: 09/10/21 Interval history: Seen and examined, events noted Physical Exam Vital Signs: Vital Signs: Last Vital Signs Temp 97.7 F 09/10/21 11:07 Pulse 75 09/10/21 11:07 Resp 20 09/10/21 11:07 BP 121/68 09/10/21 11:07 Pulse Ox 100 09/10/21 11:07 Oxygen Flow Rate 2 09/08/21 08:27 BMI result Body Mass Index 28.7 Const: Other: Constitutional : alert, interactive, not in distress Neck : Normal inspection, Supple Cardiovascular : RRR, S1 S2, trace bilateral lower extremity edema Respiratory : Fares bilateral air entry, no crackles, wheezes or rhonchi Gastrointestinal: soft, lax, Normal bowel sounds, Non tender Skin : Warm, Dry, Camilo catheter in place Neurological : alert , oriented to self and place, No focal deficit but generally physically deconditioned Objective Data Labs CBC & Chem 7: 09/09/21 06:46 09/10/21 06:14 Labs: Laboratory Results - last 24 hr 09/09/21 09/10/21 09/10/21 19:51 06:14 06:14 PT 41.0 H INR 3.5 H D Sodium 131 L Potassium 4.2 Chloride 100 Carbon Dioxide 23 Anion Gap 12 BUN 100 H Creatinine 2.28 H Estim Creat Clear Calc 40.7 Estimated GFR 30 POC Glucose 161 H Random Glucose 152 H Calcium 8.5 09/10/21 09/10/21 09/10/21 07:22 11:05 16:55 PT INR Sodium Potassium Chloride Carbon Dioxide Anion Gap BUN Creatinine Estim Creat Clear Calc Estimated GFR POC Glucose 157 H 177 H 166 H Random Glucose Calcium Microbiology Microbiology Results: Microbiology 09/08/21 10:21 Blood - Venous Blood Culture - Preliminary No growth after 48 hours. 09/08/21 10:21 Blood - Venous Blood Culture - Preliminary No growth after 48 hours. 09/08/21 10:21 Urine Catheterized - Camilo Catheter Urine Culture - Final Enterococcus faecalis Procedures Date of Service Date of Service: 09/10/21 Assessment & Plan Assessment and plan (1) Hyponatremia: Status: Acute (2) Toxic metabolic encephalopathy: Status: Acute (3) Acute kidney injury: Status: Acute (4) Elevated INR: Status: Acute Plan 1. NIRAJ: resolving off diuretics c/w renal hypoperfsuionand vol sensitive and Ur retention playing a role 2. CKD 4: BSL SCr 1.5-2.5 dependent on vol status 3. Hypervol/CHF: very delicate management as he is prone to too wet or dry; he has a cardiomems and Card/HF team managing diuretics as outpt 4. AMS: reoslved; ques d/t elavil REC: agree with r/s torsemide tomorrow; hold hydralazine; unlikely he can tolerate RASi given vol sensitive renal func; ques Card Xpalnt candidate ( outpt assessment by Card team) Time Spent With Patient Time: Total time spent is greater than 50% in coordination of care (as documented) at patient's floor/unit and/or counseling patient: Progress Note: Quality Stroke Does the patient have a stroke diagnosis?: No
[2021-09-10 20:00] VITALS: BP 118/73; PULSE 72; RESP 20; TEMP 36.3; O2SAT 98
[2021-09-10] MEDS: Atorvastatin Calcium 80 MG TABLET PO (21:02)
[2021-09-10] MEDS: Amitriptyline HCl 50 MG TABLET PO (21:02)
[2021-09-10 21:10] LABS: Glucose, Whole Blood 168 mg/dL (60-115)
[2021-09-10 23:05] VITALS: PULSE 77; RESP 22; O2SAT 95
[2021-09-11] VITALS (7 sets, daily range): BP systolic 99–112; BP diastolic 67–86; PULSE 56–80; RESP 18–21; TEMP 36–36.9; O2SAT 91–100
[2021-09-11] MEDS: Omeprazole 40 MG CAPSULE.DR PO (06:13)
[2021-09-11 07:02] LABS: INTERNATIONAL NORM RATIO 2.5 (0.9-1.1); Prothrombin Time 28.4 SEC (9.9-13.0)
[2021-09-11 07:17] LABS: Anion Gap 13 (12-20); Blood Urea Nitrogen 94 mg/dL (9-16); Calcium 8.5 mg/dL (8.4-10.2); Carbon Dioxide 23 mmol/L (22-29); Chloride 100 mmol/L (96-108); Creatinine Clr Calc Pharmacy 46.4; Estimated Glomerular Filt Rate 34; Glucose Random 163 mg/dL (60-115); Potassium 4.2 mmol/L (3.3-5.1); Sodium 132 mmol/L (135-145)
[2021-09-11 07:26] LABS: Glucose, Whole Blood 154 mg/dL (60-115)
[2021-09-11] MEDS: Insulin Lispro 100 UNIT/ML 3 ML VIAL SUBCUT ×3 (08:08→21:43)
[2021-09-11] MEDS: Metoprolol Succinate ER 25 MG TAB.ER.24H PO (08:09)
[2021-09-11] MEDS: Isosorbide Mononitrate 60 MG TAB.ER.24H PO (08:09)
[2021-09-11] MEDS: polyethylene glycoL 3350 17 GM POWD.PACK PO (08:09)
[2021-09-11] MEDS: 0.9 % Sodium Chloride Flush 3 ML SYRINGE IVFLUSH ×3 (08:10→21:49)
--- NOTE | 2021-09-11 11:01 | P.PNIM_ITS ---
Subjective Subjective Date of Service: 09/11/21 Interval History: more alert and interactive Kidney function improving urine culture growing Enterococcus feacialis Denies any fever, chills or chest pain No reported other overnight events. Systemic review: No fever, chills but reports generalized weakness No chest pain, palpitation No shortness of breath or coughing No abdominal pain, nausea or vomiting had retention requiring straight catheterization No any rash or wounds Physical Exam Vital Signs: Vital Signs: Last Vital Signs Temp 96.8 F 09/11/21 07:25 Pulse 67 09/11/21 07:25 Resp 20 09/11/21 07:25 BP 112/74 09/11/21 07:25 Pulse Ox 98 09/11/21 07:25 Oxygen Flow Rate 2 09/08/21 08:27 BMI result Body Mass Index 28.7 Const: Other: Constitutional : alert, interactive, not in distress Neck : Normal inspection, Supple Cardiovascular : RRR, S1 S2, trace bilateral lower extremity edema Respiratory : Fares bilateral air entry, no crackles, wheezes or rhonchi Gastrointestinal: soft, lax, Normal bowel sounds, Non tender Skin : Warm, Dry Neurological : alert , oriented to self and place, No focal deficit but generally physically deconditioned Objective Data Active Medications Acetaminophen (Acetaminophen 325 Mg Tablet) 650 mg PO Q6H PRN PRN Reason: Pain, Mild (Pain Scale 1-3) Amitriptyline HCl (Amitriptyline Hcl 50 Mg Tablet) 50 mg PO BEDTIME [facility] Last Admin: 09/10/21 21:02 Dose: 50 mg Documented by: STACIE Atorvastatin Calcium (Atorvastatin Calcium 80 Mg Tablet) 80 mg PO BEDTIME [facility] Last Admin: 09/10/21 21:02 Dose: 80 mg Documented by: STACIE Insulin Human Lispro (Insulin Lispro 100 Unit/Ml 3 Ml Vial) 0 unit SUBCUT QIDACHS [facility]; Protocol Last Admin: 09/11/21 08:08 Dose: 2 unit Documented by: PRAVEENA Isosorbide Mononitrate (Isosorbide Mononitrate 60 Mg Tab.Er.24h) 60 mg PO DAILY [facility]; Protocol Last Admin: 09/11/21 08:09 Dose: 60 mg Documented by: PRAVEENA Metoprolol Succinate (Metoprolol Succinate Er 25 Mg Tab.Er.24h) 25 mg PO DAILY [facility]; Protocol Last Admin: 09/11/21 08:09 Dose: 25 mg Documented by: PRAVEENA Omeprazole (Omeprazole 40 Mg Capsule.) 40 mg PO DAILY@0630 [facility] Last Admin: 09/11/21 06:13 Dose: 40 mg Documented by: STACIE Ondansetron HCl (Ondansetron Hcl 4 Mg/2 Ml Vial) 4 mg IVPUSH Q8H PRN PRN Reason: Nausea and Vomiting Pharmacy Consult (Consult Rx Perform Med Rec) 1 each MISCELLANE ONCE PRN PRN Reason: Consult order Polyethylene Glycol (Polyethylene Glycol 3350 17 Gm Powd.Pack) 17 gm PO DAILY [facility] Last Admin: 09/11/21 08:09 Dose: 17 gm Documented by: PRAVEENA Sodium Chloride (0.9 % Sodium Chloride Flush 3 Ml Syringe) 3 ml IVFLUSH QSHIFT [facility] Last Admin: 09/11/21 08:10 Dose: 3 ml Documented by: PRAVEENA Warfarin Sodium (Warfarin Sodium 2.5 Mg Tablet) 2.5 mg PO DAILY@1800 [facility] Labs CBC & Chem 7: 09/09/21 06:46 09/11/21 06:36 Labs: Laboratory Results - last 24 hr 09/10/21 09/10/21 09/10/21 11:05 16:55 21:05 PT INR Anion Gap Estim Creat Clear Calc Estimated GFR POC Glucose 177 H 166 H 168 H Random Glucose Calcium 09/11/21 09/11/21 09/11/21 06:36 06:36 07:23 PT 28.4 H INR 2.5 H Anion Gap 13 Estim Creat Clear Calc 46.4 Estimated GFR 34 POC Glucose 154 H Random Glucose 163 H Calcium 8.5 Microbiology Microbiology Results: Microbiology 09/08/21 10:21 Blood Culture - Preliminary Blood - Venous No growth after 48 hours. 09/08/21 10:21 Blood Culture - Preliminary Blood - Venous No growth after 48 hours. 09/08/21 10:21 Urine Culture - Final Urine Catheterized - Camilo Catheter Enterococcus faecalis Assessment and Plan (1) Hyponatremia: Status: Acute (2) Toxic metabolic encephalopathy: Status: Acute (3) Acute kidney injury: Status: Acute (4) Urinary retention with incomplete bladder emptying: Status: Acute Plan 61-year-old male with a past medical history of hypertension, hyperlipidemia, diabetes, CHF(EF-30%) with CardioMEMS device in place severe pulmonary hypertension, chronic hypoxic respiratory failure on 2 L of home oxygen at baseline, atrial fibrillation on Coumadin, CKD, history of CVA, polycythemia vera, CVA with no residual deficits, recent prolonged admission to the hospital for COVID-19 infection; discharged on ; presented back to the hospital with a chief complaint of? altered mentation and lethargy. Toxic metabolic encephalopathy , improved 2/2 Hesham on CKD 3 Creatinine improving along with BUN down to 2 Hold nephrotoxic medications Hold potassium supplements discontinue Gentle IV fluid nephrology input appreciated to wean down amitriptyline at time of discharge follow BMP Hyperkalemia Resolved Hyponatremia Sodium improving to 133 Likely secondary to Diuresis hold diuretics and monitor BMP with IVF Supratherapeutic INR INR 2.5 No source of bleeding restart warfarin at 2.5 mg daily Toxic metabolic encephalopathy Secondary to uremia, amitriptyline Improving Hold amitriptyline recurrent redirection Bacteriuria Urine culture last admission grew E coli and Enterococcus F Discussed with ID, likely contaminant with no need to treatmentPreviously Urology changed the Camilo catheter on August 26 hold on antibiotic for now monitor urine cultures For any growth pending ID evaluation Urinary retention Discussed with Urology Camilo catheter removed continue monitor of bladder scan To learn self-catheterization Physical deconditioning Secondary to prolonged hospital stay PT recommended SNF placement, waiting bed availability DM insulin DARLENE cpap CAD statin chronic diastolic chf Hold torsemide, metolazone htn hold hydralazine, to restart once blood pressure stable continue imdur chronic afib Subtherapeutic INR warfarin on hold Continue toprol Follow INR ?DVT PPX Warfarin patient will continue to need in hospital treatment for acute kidney injury and removal of Camilo and monitor for urinary retention Quality Stroke Does the patient have a stroke diagnosis?: No VTE Prior VTE?: No VTE Risk Level:: Medical - moderate - high VTE Device Contraindication: Treatment Not Indicated VTE Drug Contraindication: N/A - Med Ordered
[2021-09-11 11:11] LABS: Glucose, Whole Blood 189 mg/dL (60-115)
[2021-09-11 15:50] LABS: Glucose, Whole Blood 131 mg/dL (60-115)
--- NOTE | 2021-09-11 17:27 | PM.PNNEP ---
Subjective Subjective Date of Service: 09/11/21 Interval history: Seen and examined, events noted Physical Exam Vital Signs: Vital Signs: Last Vital Signs Temp 98.0 F 09/11/21 14:56 Pulse 80 09/11/21 14:56 Resp 20 09/11/21 14:56 BP 110/75 09/11/21 14:56 Pulse Ox 97 09/11/21 14:56 Oxygen Flow Rate 2 09/08/21 08:27 BMI result Body Mass Index 28.7 Const: Other: Constitutional : alert, interactive, not in distress Neck : Normal inspection, Supple Cardiovascular : RRR, S1 S2, trace bilateral lower extremity edema Respiratory : Fares bilateral air entry, no crackles, wheezes or rhonchi Gastrointestinal: soft, lax, Normal bowel sounds, Non tender Skin : Warm, Dry, Camilo catheter in place Neurological : alert , oriented to self and place, No focal deficit but generally physically deconditioned Objective Data Labs CBC & Chem 7: 09/09/21 06:46 09/11/21 06:36 Labs: Laboratory Results - last 24 hr 09/10/21 09/10/21 09/11/21 16:55 21:05 06:36 PT 28.4 H INR 2.5 H Sodium Potassium Chloride Carbon Dioxide Anion Gap BUN Creatinine Estim Creat Clear Calc Estimated GFR POC Glucose 166 H 168 H Random Glucose Calcium 09/11/21 09/11/21 09/11/21 06:36 07:23 11:07 PT INR Sodium 132 L Potassium 4.2 Chloride 100 Carbon Dioxide 23 Anion Gap 13 BUN 94 H Creatinine 2.00 H Estim Creat Clear Calc 46.4 Estimated GFR 34 POC Glucose 154 H 189 H Random Glucose 163 H Calcium 8.5 09/11/21 15:46 PT INR Sodium Potassium Chloride Carbon Dioxide Anion Gap BUN Creatinine Estim Creat Clear Calc Estimated GFR POC Glucose 131 H Random Glucose Calcium Microbiology Microbiology Results: Microbiology 09/08/21 10:21 Blood - Venous Blood Culture - Preliminary No growth after 48 hours. 09/08/21 10:21 Blood - Venous Blood Culture - Preliminary No growth after 48 hours. 09/08/21 10:21 Urine Catheterized - Camilo Catheter Urine Culture - Final Enterococcus faecalis Procedures Date of Service Date of Service: 09/11/21 Assessment & Plan Assessment and plan (1) Hyponatremia: Status: Acute (2) Toxic metabolic encephalopathy: Status: Acute (3) Acute kidney injury: Status: Acute (4) Elevated INR: Status: Acute Plan 1. NIRAJ: resolving off diuretics c/w renal hypoperfsuionand vol sensitive and Ur retention playing a role 2. CKD 4: BSL SCr 1.5-2.5 dependent on vol status 3. Hypervol/CHF: very delicate management as he is prone to too wet or dry; he has a cardiomems and Card/HF team managing diuretics as outpt 4. AMS: reoslved; ques d/t elavil REC: cont with r/s torsemide tomorrow; hold hydralazine; unlikely he can tolerate RASi given vol sensitive renal func; ques Card Xpalnt candidate ( outpt assessment by Card team) neds close f/u as outpt with renal ( we will arrange) Time Spent With Patient Time: Total time spent is greater than 50% in coordination of care (as documented) at patient's floor/unit and/or counseling patient: Progress Note: Quality Stroke Does the patient have a stroke diagnosis?: No
[2021-09-11 19:51] LABS: Glucose, Whole Blood 185 mg/dL (60-115)
[2021-09-11] MEDS: Amitriptyline HCl 50 MG TABLET PO (21:43)
[2021-09-11] MEDS: Atorvastatin Calcium 80 MG TABLET PO (21:43)
[2021-09-12] VITALS (9 sets, daily range): BP systolic 90–121; BP diastolic 60–75; PULSE 57–107; RESP 16–22; TEMP 36.1–36.6; O2SAT 94–100
[2021-09-12 06:54] LABS: INTERNATIONAL NORM RATIO 2.1 (0.9-1.1); Prothrombin Time 24.4 SEC (9.9-13.0)
[2021-09-12 07:04] LABS: Anion Gap 11 (12-20); Blood Urea Nitrogen 83 mg/dL (9-16); Calcium 8.1 mg/dL (8.4-10.2); Carbon Dioxide 23 mmol/L (22-29); Chloride 101 mmol/L (96-108); Creatinine Clr Calc Pharmacy 56.9; Estimated Glomerular Filt Rate 44; Glucose Random 166 mg/dL (60-115); Potassium 3.7 mmol/L (3.3-5.1); Sodium 131 mmol/L (135-145)
[2021-09-12 07:33] LABS: Glucose, Whole Blood 127 mg/dL (60-115)
[2021-09-12] MEDS: 0.9 % Sodium Chloride Flush 3 ML SYRINGE IVFLUSH ×3 (08:41→21:46)
[2021-09-12] MEDS: Metoprolol Succinate ER 25 MG TAB.ER.24H PO (08:41)
[2021-09-12] MEDS: Isosorbide Mononitrate 60 MG TAB.ER.24H PO (08:41)
[2021-09-12] MEDS: Omeprazole 40 MG CAPSULE.DR PO (08:41)
[2021-09-12 11:15] LABS: Glucose, Whole Blood 199 mg/dL (60-115)
[2021-09-12] MEDS: Insulin Lispro 100 UNIT/ML 3 ML VIAL SUBCUT ×2 (11:15→21:45)
--- NOTE | 2021-09-12 12:46 | MHC.CDI.CONC ---
CDI Concurrent Query Documentation Clarification: PHYSICIAN'S DOCUMENTATION REQUEST Date of Query: 09/12/21 1248 Patient Name: Vineet Rubalcava Admit Date: 09/08/21 Dear Doctor, A review of the medical record indicates additional documentation may be needed. Please review below and update the documentation accordingly. Clinical Indicators: Documentation in the record includes the diagnosis of NIRAJ and CKD. The following clinical information was noted in the record: Risk Factors/Clinical Indicators/Treatments Nephrology consult notes 09/09 - 09/11 - CKD 4- BSL SCr 1.5-2.5 NIRAJ H&P 09/08 - CKD 3 PN: 09/11 - Please clarify which of the following most accurately represents the patient's renal status: Consistency of documentation within the medical record: Acute kidney injury on CKD Stage 3 Acute kidney injury on CKD Stage 4 Other (please specify) Unable to determine Criteria for NIRAJ* Stages of Chronic Kidney Disease* 1. Increase in serum creatinine by ? 0.3 mg/dL Level Description GFR (?26.5 micromol/L) within 48 hours, or G1 Normal or High > 90 2. Increase in serum creatinine to ?1.5 times baseline, G2 Mildly decreased 60 ? 89 which is known or presumed to have occurred within 7 days, or G3a Mildly to moderately decreased 45 ? 59 3. Urine volume <0.5 mL/kg/hour for six hours G3b Moderately to severely decreased 30 - 44 G4 Severely decreased 15 ? 29 G5 Kidney failure < 15 *Source: Kidney Disease: Improving Global Outcomes (KDIGO) 2012 Use of terms such as suspected, likely, concern for, or probable (associated with a specific diagnosis that is being evaluated, monitored, or treated as if it exists) are acceptable and can be coded in the inpatient setting, when documented at the time of discharge. Thank you, Mariann Kumar [facility], CDIS Extension: [phone] Please use your independent medical judgment in providing your response. THIS QUERY IS PART OF THE PERMANENT MEDICAL RECORD Provider Response: Other Other Diagnosis: in note NIRAJ on CKD 3
[2021-09-12 13:38] LABS: COVID-19 Test Negative (Negative); IDNOW Serial# 16C4AD1C
--- NOTE | 2021-09-12 14:23 | P.PNIM_ITS ---
Subjective Subjective Date of Service: 09/12/21 Interval History: more alert and interactive Kidney function improving urine culture growing Enterococcus feacialis, Contaminant Denies any fever, chills or chest pain No reported other overnight events. Systemic review: No fever, chills but reports generalized weakness No chest pain, palpitation No shortness of breath or coughing No abdominal pain, nausea or vomiting had retention requiring straight catheterization No any rash or wounds Review of Systems Patient not verbal to provide any meaningful history Physical Exam Vital Signs: Vital Signs: Last Vital Signs Temp 97.8 F 09/12/21 11:21 Pulse 62 09/12/21 11:21 Resp 20 09/12/21 11:21 BP 114/69 09/12/21 11:21 Pulse Ox 100 09/12/21 11:21 Oxygen Flow Rate 2 09/08/21 08:27 BMI result Body Mass Index 28.7 Const: Other: Constitutional : alert, interactive, not in distress Neck : Normal inspection, Supple Cardiovascular : RRR, S1 S2, trace bilateral lower extremity edema Respiratory : Fares bilateral air entry, no crackles, wheezes or rhonchi Gastrointestinal: soft, lax, Normal bowel sounds, Non tender Skin : Warm, Dry Neurological : alert , oriented to self and place, No focal deficit but generally physically deconditioned Objective Data Active Medications Acetaminophen (Acetaminophen 325 Mg Tablet) 650 mg PO Q6H PRN PRN Reason: Pain, Mild (Pain Scale 1-3) Amitriptyline HCl (Amitriptyline Hcl 50 Mg Tablet) 50 mg PO BEDTIME COUNT INCLUDES THE [facility] Last Admin: 09/11/21 21:43 Dose: 50 mg Documented by: GIL Atorvastatin Calcium (Atorvastatin Calcium 80 Mg Tablet) 80 mg PO BEDTIME COUNT INCLUDES THE [facility] Last Admin: 09/11/21 21:43 Dose: 80 mg Documented by: GIL Insulin Human Lispro (Insulin Lispro 100 Unit/Ml 3 Ml Vial) 0 unit SUBCUT QIDACHS COUNT INCLUDES THE [facility]; Protocol Last Admin: 09/12/21 11:15 Dose: 2 unit Documented by: MALIK Isosorbide Mononitrate (Isosorbide Mononitrate 60 Mg Tab.Er.24h) 60 mg PO DAILY COUNT INCLUDES THE [facility]; Protocol Last Admin: 09/12/21 08:41 Dose: 60 mg Documented by: MALIK Metoprolol Succinate (Metoprolol Succinate Er 25 Mg Tab.Er.24h) 25 mg PO DAILY COUNT INCLUDES THE [facility]; Protocol Last Admin: 09/12/21 08:41 Dose: 25 mg Documented by: MALIK Omeprazole (Omeprazole 40 Mg Capsule.Dr) 40 mg PO DAILY@0630 COUNT INCLUDES THE [facility] Last Admin: 09/12/21 08:41 Dose: 40 mg Documented by: MALIK Ondansetron HCl (Ondansetron Hcl 4 Mg/2 Ml Vial) 4 mg IVPUSH Q8H PRN PRN Reason: Nausea and Vomiting Pharmacy Consult (Consult Rx Perform Med Rec) 1 each MISCELLANE ONCE PRN PRN Reason: Consult order Polyethylene Glycol (Polyethylene Glycol 3350 17 Gm Powd.Pack) 17 gm PO DAILY COUNT INCLUDES THE [facility] Last Admin: 09/12/21 08:43 Dose: Not Given Documented by: MALIK Non-Admin Reason: Patient Refused Sodium Chloride (0.9 % Sodium Chloride Flush 3 Ml Syringe) 3 ml IVFLUSH QSHIFT COUNT INCLUDES THE [facility] Last Admin: 09/12/21 08:41 Dose: 3 ml Documented by: MALIK Tamsulosin HCl (Tamsulosin Hcl 0.4 Mg Capsule) 0.8 mg PO DAILY COUNT INCLUDES THE [facility] Warfarin Sodium (Warfarin Sodium 2.5 Mg Tablet) 2.5 mg PO DAILY@1800 COUNT INCLUDES THE [facility] Labs CBC & Chem 7: 09/09/21 06:46 09/12/21 06:15 Labs: Laboratory Results - last 24 hr 09/11/21 09/11/21 09/12/21 15:46 19:46 06:15 PT 24.4 H INR 2.1 H Anion Gap Estim Creat Clear Calc Estimated GFR POC Glucose 131 H 185 H Random Glucose Calcium COVID-19 (POWER) COVID-19 Clin Com 09/12/21 09/12/21 09/12/21 06:15 07:17 11:12 PT INR Anion Gap 11 L Estim Creat Clear Calc 56.9 Estimated GFR 44 POC Glucose 127 H 199 H Random Glucose 166 H Calcium 8.1 L COVID-19 (POWER) COVID-19 Clin Com 09/12/21 13:10 PT INR Anion Gap Estim Creat Clear Calc Estimated GFR POC Glucose Random Glucose Calcium COVID-19 (POWER) Negative COVID-19 Clin Com See Note Assessment and Plan (1) Hyponatremia: Status: Acute (2) Toxic metabolic encephalopathy: Status: Acute (3) Acute kidney injury: Status: Acute (4) Acute UTI: Status: Acute (5) Elevated INR: Status: Acute Plan 61-year-old male with a past medical history of hypertension, hyperlipidemia, diabetes, CHF(EF-30%) with CardioMEMS device in place severe pulmonary hypertension, chronic hypoxic respiratory failure on 2 L of home oxygen at baseline, atrial fibrillation on Coumadin, CKD, history of CVA, polycythemia vera, CVA with no residual deficits, recent prolonged admission to the hospital for COVID-19 infection; discharged on ; presented back to the hospital with a chief complaint of? altered mentation and lethargy. Toxic metabolic encephalopathy , improved 2/2 [place] on CKD 3 Creatinine improving along with BUN down to 2 Hold nephrotoxic medications Hold potassium supplements discontinue Gentle IV fluid nephrology input appreciated to wean down amitriptyline at time of discharge follow BMP Hyperkalemia Resolved Hyponatremia Sodium improving to 132 Likely secondary to Diuresis hold diuretics and monitor BMP with IVF Supratherapeutic INR INR 2.1 No source of bleeding restart warfarin at 2.5 mg daily Toxic metabolic encephalopathy Secondary to uremia, amitriptyline Improving Hold amitriptyline recurrent redirection Bacteriuria Urine culture last admission grew E coli and Enterococcus F Discussed with ID, likely contaminant with no need to treatmentPreviously Urology changed the Camilo catheter on August 26 hold on antibiotic for now monitor urine cultures For any growth id recommended no antibiotic treatment. Urinary retention Discussed with Urology Camilo catheter removed continue monitor of bladder scan To learn self-catheterization Physical deconditioning Secondary to prolonged hospital stay PT recommended SNF placement, waiting bed availability DM insulin DARLENE cpap CAD statin chronic diastolic chf Hold torsemide, metolazone htn hold hydralazine, to restart once blood pressure stable continue imdur chronic afib Subtherapeutic INR warfarin on hold Continue toprol Follow INR ?DVT PPX Warfarin patient will continue to need in hospital treatment for acute kidney injury and removal of Camilo and monitor for urinary retention Quality Stroke Does the patient have a stroke diagnosis?: No VTE Prior VTE?: No VTE Risk Level:: Medical - moderate - high VTE Device Contraindication: Treatment Not Indicated VTE Drug Contraindication: N/A - Med Ordered
[2021-09-12] MEDS: Tamsulosin HCL 0.4 MG CAPSULE 0.8 MG PO (15:05)
--- NOTE | 2021-09-12 16:10 | P.CNID_ITS ---
History of Present Illness Data of Consult Service Date: 09/12/21 Requesting physician: Mookie Martinez Primary Care Provider: Tawana Bowen NP HPI Reason for consult: encephalopathy He presents with weakness and lethagy for a day. He has had these symptoms before. In August he had urine culture checked twice and found enterococcus faecalis. He initially had TNTC WBC and now has decreased less than 100,000. He has no fever or chills. Review of Systems Review of Systems: Yes Unobtainable due to mental condition [facility] Past Medical History Medical History Anasarca Atrial fibrillation CAD (coronary artery disease) Cataract Cholecystectomy planned Chronic combined systolic and diastolic congestive heart failure Chronic respiratory failure CKD (chronic kidney disease) stage 3, GFR 30-59 ml/min CVA (cerebral vascular accident) Diabetes Gross hematuria Heart attack HTN (hypertension) Hyperlipidemia Neuropathy DARLENE on CPAP Permanent atrial fibrillation Polycythemia vera Pulmonary hypertension Toe amputee Urinary retention with incomplete bladder emptying Family History Family History Father Diabetes Hx of cancer antigen 125 (CA-125) measurement Mother Diabetes Brother Diabetes Hx of cancer antigen 125 (CA-125) measurement Family history: reviewed and not pertinent Surgical History Surgical History History of cholecystectomy Social History Social History Household Members: Other 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 Housing: 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 Do you presently have visiting nurse or other home services: No Alcohol intake: former Patient Tobacco Use Status: Never used Tobacco service: No Current occupational status: disabled Meds Allergies Allergy/AdvReac Type Severity Reaction Status Date / Time No Known Allergies Allergy Unknown NKDA Verified 08/18/21 13:21 Active Medications: Current Medications Acetaminophen (Acetaminophen 325 Mg Tablet) 650 mg PO Q6H PRN PRN Reason: Pain, Mild (Pain Scale 1-3) Amitriptyline HCl (Amitriptyline Hcl 50 Mg Tablet) 50 mg PO BEDTIME ALEM Last Admin: 09/11/21 21:43 Dose: 50 mg Documented by: Atorvastatin Calcium (Atorvastatin Calcium 80 Mg Tablet) 80 mg PO BEDTIME [facility] Last Admin: 09/11/21 21:43 Dose: 80 mg Documented by: Insulin Human Lispro (Insulin Lispro 100 Unit/Ml 3 Ml Vial) 0 unit SUBCUT QIDAC HS [facility]; Protocol Last Admin: 09/12/21 11:15 Dose: 2 unit Documented by: Isosorbide Mononitrate (Isosorbide Mononitrate 60 Mg Tab.Er.24h) 60 mg PO DAILY [facility]; Protocol Last Admin: 09/12/21 08:41 Dose: 60 mg Documented by: Metoprolol Succinate (Metoprolol Succinate Er 25 Mg Tab.Er.24h) 25 mg PO DAILY [facility]; Protocol Last Admin: 09/12/21 08:41 Dose: 25 mg Documented by: Omeprazole (Omeprazole 40 Mg Capsule.Dr) 40 mg PO DAILY@0630 [facility] Last Admin: 09/12/21 08:41 Dose: 40 mg Documented by: Ondansetron HCl (Ondansetron Hcl 4 Mg/2 Ml Vial) 4 mg IVPUSH Q8H PRN PRN Reason: Nausea and Vomiting Pharmacy Consult (Consult Rx Perform Med Rec) 1 each MISCELLANE ONCE PRN PRN Reason: Consult order Polyethylene Glycol (Polyethylene Glycol 3350 17 Gm Powd.Pack) 17 gm PO DAILY [facility] Last Admin: 09/12/21 08:43 Dose: Not Given Documented by: Sodium Chloride (0.9 % Sodium Chloride Flush 3 Ml Syringe) 3 ml IVFLUSH QSHIFT [facility] Last Admin: 09/12/21 08:41 Dose: 3 ml Documented by: Tamsulosin HCl (Tamsulosin Hcl 0.4 Mg Capsule) 0.8 mg PO DAILY [facility] Last Admin: 09/12/21 15:05 Dose: 0.8 mg Documented by: Warfarin Sodium (Warfarin Sodium 2.5 Mg Tablet) 2.5 mg PO DAILY@1800 [facility] Home Medications Medication Instructions Recorded Confirmed Last Taken Type atorvastatin 80 mg tablet 1 tab PO BEDTIME 05/08/20 09/08/21 08/18/21 History dulaglutide 1.5 mg/0.5 mL 1 mg SUBCUT MO 05/08/20 09/08/21 05/03/20 History subcutaneous pen injector (Trulicity) insulin regular hum U-500 conc 500 20 unit SUBCUT QAM 05/08/20 09/08/21 08/18/21 History unit/mL subcutaneous soln (Humulin R U-500 (Concentrated) Insulin) metoprolol succinate 25 mg 1 tab PO DAILY 05/08/20 09/08/21 08/18/21 History tablet,extended release 24 hr ascorbic acid (vitamin C) 500 mg 500 mg PO DAILY 07/17/21 09/08/21 08/18/21 History tablet insulin regular hum U-500 conc 500 10 unit SUBCUT BEDTIME 07/17/21 09/08/21 08/17/21 History unit/mL subcutaneous soln (Humulin R U-500 (Concentrated) Insulin) isosorbide mononitrate 60 mg 1 tab PO DAILY 07/17/21 09/08/21 08/18/21 History tablet,extended release 24 hr torsemide 100 mg tablet 1 tab PO BID 07/17/21 09/08/21 08/18/21 History cholecalciferol (vitamin D3) 1,250 1,250 mcg PO TU 09/08/21 09/08/21 Unknown History mcg (50,000 unit) tablet omeprazole 40 mg capsule,delayed 40 mg PO DAILY@0630 09/08/21 09/08/21 Unknown History release warfarin 3 mg tablet 3 mg PO DAILY@1800 09/08/21 09/08/21 Unknown History Physical Exam Vital Signs: Vital Signs: Last Vital Signs Temp 97.0 F 09/12/21 15:19 Pulse 60 09/12/21 15:19 Resp 20 09/12/21 15:19 BP 90/60 09/12/21 15:19 Pulse Ox 100 09/12/21 15:19 Oxygen Flow Rate 2 09/08/21 08:27 BMI result Body Mass Index 28.7 HENMT: Head: Yes normal to inspection Mouth: Normal oral and palatal mucosa present Resp: Effort & Inspection: normal respiratory effort Cardio: Rate: regular rate Rhythm: regular rhythm GI: Palpation (GI): Soft to palpation and nontender Extrem: General: Yes normal to inspection Results Labs CBC & Chem 7: 09/09/21 06:46 09/12/21 06:15 Labs: BMP 09/12/21 06:15 Sodium 131 L Potassium 3.7 Chloride 101 Carbon Dioxide 23 BUN 83 H Creatinine 1.63 H Calcium 8.1 L Microbiology Microbiology Results: Microbiology 09/08/21 10:21 Blood - Venous Blood Culture - Preliminary No growth after 48 hours. 03/10/22 10:21 Blood - Venous Blood Culture - Preliminary No growth after 48 hours. 09/08/21 10:21 Urine Catheterized - Camilo Catheter Urine Culture - Final Enterococcus faecalis Assessment and Plan (1) Hyponatremia: Status: Acute (2) Toxic metabolic encephalopathy: Status: Acute His enterococcus in urine is chronic His WBCs are less in urine He is likely colonized (3) Acute kidney injury: Status: Acute Plan No further antibiotics at this time. Workup hyponatremia as other causes.
[2021-09-12 16:24] LABS: Glucose, Whole Blood 135 mg/dL (60-115)
[2021-09-12] MEDS: Warfarin Sodium 2.5 MG TABLET PO (19:08)
[2021-09-12 21:40] LABS: Glucose, Whole Blood 166 mg/dL (60-115)
[2021-09-12] MEDS: Amitriptyline HCl 50 MG TABLET PO (21:45)
[2021-09-12] MEDS: Atorvastatin Calcium 80 MG TABLET PO (21:45)
[2021-09-13] VITALS (9 sets, daily range): BP systolic 96–127; BP diastolic 58–80; PULSE 58–88; RESP 14–20; TEMP 35.7–37.1; O2SAT 94–99
[2021-09-13] MEDS: Omeprazole 40 MG CAPSULE.DR PO (05:56)
[2021-09-13 06:44] LABS: INTERNATIONAL NORM RATIO 1.7 (0.9-1.1); Prothrombin Time 19.7 SEC (9.9-13.0)
[2021-09-13 07:09] LABS: Glucose, Whole Blood 145 mg/dL (60-115)
--- NOTE | 2021-09-13 07:41 | P.DS_ITS ---
DS: Providers Provider Date of Service: 09/14/21 <Jone Petty MD - Last Filed: 09/14/21 12:38> Date of admission: 09/08/21 13:36 <Mookie Martinez MD - Last Filed: 09/13/21 09:57> Primary care physician: Tawana Bowen NP <Mookie Martinez MD - Last Filed: 09/13/21 09:57> Consults: 09/08/21 13:42 Consult to Nephrology Routine Consulting Provider: Kevin Hewitt Reason for consultation: NIRAJ on CKD 09/10/21 10:22 Consult to Infectious Diseases Routine Consulting Provider: Brie Martino Reason for consultation: Recurrent +ve urine Cx for Enterococcus Faecalis <Mookie Martinez MD - Last Filed: 09/13/21 09:57> DS: Diagnosis Discharge Diagnosis (1) Hyponatremia: Status: Acute <Mookie Martinez MD - Last Filed: 09/13/21 09:57> (2) Toxic metabolic encephalopathy: Status: Acute <Mookie Martinez MD - Last Filed: 09/13/21 09:57> (3) Acute kidney injury: Status: Acute <Mookie Martinez MD - Last Filed: 09/13/21 09:57> (4) Elevated INR: Status: Acute <Mookie Martinez MD - Last Filed: 09/13/21 09:57> (5) Acute hyperkalemia: Status: Acute <Mookie Martinez MD - Last Filed: 09/13/21 09:57> DS: Summary Hospital Course Hospital Course: admission note HPI 61-year-old male with a past medical history of hypertension, hyperlipidemia, diabetes, CHF(EF-30%) with CardioMEMS device in place severe pulmonary hypertension, chronic hypoxic respiratory failure on 2 L of home oxygen at baseline, atrial fibrillation on Coumadin, CKD, history of CVA, polycythemia vera, CVA with no residual deficits, recent prolonged admission to the hospital for? COVID-19 infection; discharged on ; presented back to the hospital with a chief complaint of? altered mentation and lethargy. The patient was lethargic and unable to provide any meaningful history.? History was taken from emergency provider, AMS and halfway report.? According to them to patient is more lethargic over the last few days but this morning he was totally altered as the found him almost on the floor? sliding from his bed.? He has decreased oral intake and altered mentation with difficulty to waking him up.? No reported fever, vomiting, diarrhea.? In the emergency blood work was consistent with acute kidney injury, hyperkalemia,? with elevated INR and low sodium level. Patient admitted for further evaluation treatment after receiving hyperkalemia management. Hospital course Toxic metabolic encephalopathy 2/2 Niraj on CKD 3 The patient presented with altered mentation associated with acute kidney injury and elevated BUN secondary to likely prerenal cause. He was treated by holding nephrotoxic medications and potassium supplement and started on IV fluid with fair response as he was evaluated by Nephrology team. Creatinine level improved from 4 at time of admission to 1.6 at the day of discharge.Potassium was elevated with hyperkalemia at time of presentation above 6. Treated with IV fluid , lokelma and improved back to normal range. Amitriptyline was held as well with significant improvement is of his mental status. Discussed with the patient and decided to cut down the dose to 50 mg bedtime only and discontinue the 150 mg. has a history of chronic Hyponatremia which has been stable with sodium level ranging between 130-135 with no symptomatic findings. Likely due to diuresis. Metolazone was discontinued. To repeat BMP after discharge. Supratherapeutic INR At presentation found to have INR of 5.9. Warfarin was held at beginning mental INR dropped to 2.110 it was restarted. To continue current dose of warfarin. Follow INR as scheduled. The patient has Bacteriuria. Urine culture? last admission grew E coli and Enterococcus F. Discussed with ID, likely contaminant with no need to treatment. a Camilo catheter was placed originally for history of urinary retention. Discussed with urology team Dr. Mondragon who suggested removing the Camilo catheter and starting self straight catheterization which went well during the hospital stay. The patient was started on tamsulosin as well. He will need 3 times a day bladder emptying and to learn how to do it himself. He has memory problem and sometimes he forgets. Monitor your INR weekly Decrease amitriptyline to 50 mg at bedtime only Discontinue hydralazine, metolazone and potassium Start tamsulosin to help with urine retention To do straight cath 2-3 times every day around the same time To follow-up with Dr. Mondragon in the office <Mookie Martinez MD - Last Filed: 09/13/21 09:57> Time Spent with Patient Time attestation: Total time spent providing and/or coordinating discharge services: <Mookie Martinez MD - Last Filed: 09/13/21 09:57> Discharge coordination time: Greater than 30 minutes <Jone Petty MD - Last Filed: 09/14/21 12:38> Quality: Stroke Does the patient have a stroke diagnosis?: No <Jnoe Petty MD - Last Filed: 09/14/21 12:38> Physical Exam Vital Signs: Vital Signs: Last Vital Signs Temp 98.8 F 09/13/21 03:09 Pulse 58 09/13/21 03:09 Resp 18 09/13/21 04:57 BP 127/80 09/13/21 03:09 Pulse Ox 98 09/13/21 03:09 Oxygen Flow Rate 2 09/08/21 08:27 BMI result Body Mass Index 28.7 <Mookie Martinez MD - Last Filed: 09/13/21 09:57> Const: Other: Constitutional : alert, interactive, not in distress Neck : Normal inspection, Supple Cardiovascular : RRR, S1 S2, trace bilateral lower extremity edema Respiratory : Fares bilateral air entry, no crackles, wheezes or rhonchi Gastrointestinal: soft, lax, Normal bowel sounds, Non tender Skin : Warm, Dry Neurological : alert , oriented to self and place, No focal deficit but generally physically deconditioned <Mookie Martinez MD - Last Filed: 09/13/21 09:57> DS: Data Data Completed and Pending Completed studies during hospitalization [Text1]: Procedures Assistance with Respiratory Ventilation, Less than 24 Consecutive Hours, Continuous Positive Airway Pressure (08/19/21) Introduction of Remdesivir Anti-infective into Peripheral Vein, Percutaneous Approach, [employer] (08/19/21) Transfusion of Nonautologous Red Blood Cells into Peripheral Vein, Percutaneous Approach (07/17/21) <Mookie Martinez MD - Last Filed: 09/13/21 09:57> Labs on day of discharge: Laboratory Results - last 24 hr 09/12/21 09/12/21 09/12/21 11:12 13:10 16:15 PT INR POC Glucose 199 H 135 H COVID-19 (POWER) Negative COVID-19 Clin Com See Note 09/12/21 09/13/21 09/13/21 21:34 06:07 07:02 PT 19.7 H INR 1.7 H POC Glucose 166 H 145 H COVID-19 (POWER) COVID-19 Clin Com Preliminary micro results at discharge 09/08/21 10:21 Blood Culture - Preliminary Blood - Venous No growth after 48 hours. 09/08/21 10:21 Blood Culture - Preliminary Blood - Venous No growth after 48 hours. <Mookie Martinez MD - Last Filed: 09/13/21 09:57> Discharge Plan Discharge Patient Disposition: Xfer SNF <Mookie Martinez MD - Last Filed: 09/13/21 09:57> Discharge Diagnosis: Acute kidney injury Hyperkalemia urinary retention <Mookie Martinez MD - Last Filed: 09/13/21 09:57> Acute kidney injury Hyperkalemia urinary retention <Jone Petty MD - Last Filed: 09/14/21 12:38> Referrals: [facility] [Outside] - 1 Week Tawana Bowen NP [Primary Care Provider] - 1 Week <Mookie Martinez MD - Last Filed: 09/13/21 09:57> Discharge Medications: New tamsulosin 0.4 mg capsule 0.8 mg PO DAILY Qty: 60 0RF Continued atorvastatin 80 mg tablet 1 tab PO BEDTIME 0RF Humulin R U-500 (Conc) Insulin 500 unit/mL solution 20 unit subcut QAM 0RF metoprolol succinate 25 mg tablet extended release 24 hr 1 tab PO DAILY 0RF Trulicity 1.5 mg/0.5 mL pen injector 1 mg subcut MO 0RF Rx Instructions: mondays isosorbide mononitrate 60 mg tablet extended release 24 hr 1 tab PO DAILY 0RF torsemide 100 mg tablet 1 tab PO BID 0RF ascorbic acid (vitamin C) 500 mg Tablet 500 mg PO DAILY 0RF Humulin R U-500 (Conc) Insulin 500 unit/mL solution 10 unit subcut BEDTIME 0RF warfarin 3 mg Tablet 3 mg PO DAILY@1800 0RF cholecalciferol (vitamin D3) 1,250 mcg (50,000 unit) Tablet 1,250 mcg PO TU 0RF omeprazole 40 mg capsule,delayed release(DR/EC) 40 mg PO DAILY@0630 0RF Changed amitriptyline 50 mg tablet 1 tab PO BEDTIME Qty: 0 0RF Discontinued metolazone 5 mg tablet 1 tab PO MOTUWETHFR 0RF hydralazine 25 mg tablet 1 tab PO TID 0RF amitriptyline 50 mg tablet 150 mg PO BEDTIME 0RF potassium chloride 20 mEq Tablet,Er Particles/Crystals 40 meq PO BID Qty: 120 0RF <Mookie Martinez MD - Last Filed: 09/13/21 09:57> Discharge Orders: Discharge Order (Routine); Ordered 09/13/21 Ordered By: Mookie Martinez <Mookie Martinez MD - Last Filed: 09/13/21 09:57> Diet: advance to usual diet <Mookie Martinez MD - Last Filed: 09/13/21 09:57> advance to usual diet <Jone Petty MD - Last Filed: 09/14/21 12:38> Activity on Discharge: As tolerated <Mookie Martinez MD - Last Filed: 09/13/21 09:57> As tolerated <Jone Petty MD - Last Filed: 09/14/21 12:38> Stand Alone Forms: Patient Portal Discharge page <Mookie Martinez MD - Last Filed: 09/13/21 09:57> Other Ambulatory Orders: Basic Metabolic Panel (Routine) Timeframe: 3 Days Facility: [facility] - Location: Laboratory Ordered By: Mookie Martinez <Mookie Martinez MD - Last Filed: 09/13/21 09:57> Care Plan Goals: Read below <Mookei Martinez MD - Last Filed: 09/13/21 09:57> Health Concerns: Read below <Mookie Martinez MD - Last Filed: 09/13/21 09:57> Plan of Treatment: Read below <Mookie Martinez MD - Last Filed: 09/13/21 09:57> Assessment: you were admitted to the hospital for evaluation of altered mentation. Found to have acute kidney injury that was treated with IV fluid and holding nephrotoxic medications. Your responded well as your kidneys improved and we decided to cut down your amitriptyline dosage. You were noticed to have a high potassium and low sodium level which both were treated. Your sodium still running on the lower normal end. Your INR was noted to be significantly elevated around 5.9. Your warfarin was held for 2 days then restarted yesterday. Monitor your INR weekly Decrease amitriptyline to 50 mg at bedtime only Discontinue hydralazine, metolazone and potassium Start tamsulosin to help with urine retention To do straight cath 2-3 times every dayAround the same time To follow-up with Dr. Mondragon in the office <Mookie Martinez MD - Last Filed: 09/13/21 09:57> Discharge Date/Time: 09/14/21 10:30 <Mookie Martinez MD - Last Filed: 09/13/21 09:57>
[2021-09-13] MEDS: Metoprolol Succinate ER 25 MG TAB.ER.24H PO (08:20)
[2021-09-13] MEDS: Tamsulosin HCL 0.4 MG CAPSULE 0.8 MG PO (08:20)
[2021-09-13] MEDS: Isosorbide Mononitrate 60 MG TAB.ER.24H PO (08:21)
--- NOTE | 2021-09-13 09:31 | PM.PNNEP ---
Subjective Subjective Date of Service: 09/12/21 Interval history: Seen AM. Events noted. All recent data reviewed Physical Exam Vital Signs: Vital Signs: Last Vital Signs Temp 98.2 F 09/13/21 07:42 Pulse 66 09/13/21 07:42 Resp 16 09/13/21 07:42 BP 122/75 09/13/21 07:42 Pulse Ox 98 09/13/21 07:42 Oxygen Flow Rate 2 09/08/21 08:27 BMI result Body Mass Index 28.7 Const: General: cooperative Orientation/consciousness: patient oriented x3 Neck: Neck: Yes supple Resp: Auscultation: diminished lung sounds Cardio: Rate: regular rate GI: Palpation (GI): Soft to palpation Neuro: General: patient oriented x3 Objective Data Labs CBC & Chem 7: 09/09/21 06:46 09/12/21 06:15 Labs: Laboratory Results - last 24 hr 09/12/21 09/12/21 09/12/21 11:12 13:10 16:15 PT INR POC Glucose 199 H 135 H COVID-19 (POWER) Negative COVID-19 Clin Com See Note 09/12/21 09/13/21 09/13/21 21:34 06:07 07:02 PT 19.7 H INR 1.7 H POC Glucose 166 H 145 H COVID-19 (POWER) COVID-19 Clin Com Microbiology Microbiology Results: Microbiology 09/08/21 10:21 Blood - Venous Blood Culture - Preliminary No growth after 48 hours. 09/08/21 10:21 Blood - Venous Blood Culture - Preliminary No growth after 48 hours. 09/08/21 10:21 Urine Catheterized - Camilo Catheter Urine Culture - Final Enterococcus faecalis Procedures Date of Service Date of Service: 09/12/21 Assessment & Plan Assessment and plan (1) Acute kidney injury: Status: Acute Assessment and Plan: 1. NIRAJ: resolving off diuretics c/w renal hypoperfsuionand vol sensitive and Ur retention playing a role 2. CKD 4: BSL SCr 1.5-2.5 dependent on vol status 3. Hypervol/CHF: very delicate management as he is prone to too wet or dry; he has a cardiomems and Card/HF team managing diuretics as outpt C/W current supportive care for now. Labs AM. Shall F/U Time Spent With Patient Time: Total time spent is greater than 50% in coordination of care (as documented) at patient's floor/unit and/or counseling patient: Progress Note: Quality Stroke Does the patient have a stroke diagnosis?: No
--- NOTE | 2021-09-13 10:05 | MHC.CM.PN ---
IMM 09/13/21 Male 61 DX NIRAJ is discharged today to [facility] via BLS. All dc info has been sent to the facility.
--- NOTE | 2021-09-13 10:49 | PM.PNNEP ---
Subjective Subjective Date of Service: 09/13/21 Interval history: Seen AM. Events noted. All recent data reviewed Physical Exam Vital Signs: Vital Signs: Last Vital Signs Temp 98.2 F 09/13/21 07:42 Pulse 66 09/13/21 07:42 Resp 16 09/13/21 07:42 BP 122/75 09/13/21 07:42 Pulse Ox 98 09/13/21 07:42 Oxygen Flow Rate 2 09/08/21 08:27 BMI result Body Mass Index 28.7 Const: General: no acute distress Eyes: EOM: EOMs intact bilaterally Resp: Auscultation: diminished lung sounds Cardio: Rate: regular rate GI: Palpation (GI): Soft to palpation Neuro: General: moves all extremities Objective Data Labs CBC & Chem 7: 09/09/21 06:46 09/12/21 06:15 Labs: Laboratory Results - last 24 hr 09/12/21 09/12/21 09/12/21 11:12 13:10 16:15 PT INR POC Glucose 199 H 135 H COVID-19 (POWER) Negative COVID-19 Clin Com See Note 09/12/21 09/13/21 09/13/21 21:34 06:07 07:02 PT 19.7 H INR 1.7 H POC Glucose 166 H 145 H COVID-19 (POWER) COVID-19 Clin Com Microbiology Microbiology Results: Microbiology 09/08/21 10:21 Blood - Venous Blood Culture - Preliminary No growth after 48 hours. 09/08/21 10:21 Blood - Venous Blood Culture - Preliminary No growth after 48 hours. 09/08/21 10:21 Urine Catheterized - Camilo Catheter Urine Culture - Final Enterococcus faecalis Procedures Date of Service Date of Service: 09/13/21 Assessment & Plan Assessment and plan (1) Acute kidney injury: Status: Acute Assessment and Plan: 1. NIRAJ: resolving off diuretics c/w renal hypoperfsuionand vol sensitive and Ur retention playing a role 2. CKD 4: BSL SCr 1.5-2.5 dependent on vol status 3. Hypervol/CHF: very delicate management as he is prone to too wet or dry; he has a cardiomems and Card/HF team managing diuretics as outpt C/W current supportive care for now. Labs AM. Shall F/U Time Spent With Patient Time: Total time spent is greater than 50% in coordination of care (as documented) at patient's floor/unit and/or counseling patient: Progress Note: Quality Stroke Does the patient have a stroke diagnosis?: No
[2021-09-13 11:04] LABS: Glucose, Whole Blood 181 mg/dL (60-115)
--- NOTE | 2021-09-13 11:31 | MHC.CLN ---
F/U PT WITH INCREASED NUTRITION RISK R/T PRESSURE INJURIES PT PENDING D/C DIET RX: 2200DM-APPROPRIATE PT RECEIVING GLUCERNA TID TO INCREASE KCALS AND PROMOTE WOUND HEALING SUPP TO PROVIDE 711KCALS, 30G PROTEIN CONTINUE TO MONITOR PO INTAKE CLOSELY
[2021-09-13] MEDS: Insulin Lispro 100 UNIT/ML 3 ML VIAL SUBCUT ×3 (11:52→21:39)
[2021-09-13] MEDS: 0.9 % Sodium Chloride Flush 3 ML SYRINGE IVFLUSH (11:53)
[2021-09-13 16:10] LABS: Glucose, Whole Blood 192 mg/dL (60-115)
[2021-09-13] MEDS: Warfarin Sodium 3 MG TABLET PO (17:51)
[2021-09-13 20:20] LABS: Glucose, Whole Blood 214 mg/dL (60-115)
[2021-09-13] MEDS: Amitriptyline HCl 50 MG TABLET PO (21:39)
[2021-09-13] MEDS: Atorvastatin Calcium 80 MG TABLET PO (21:39)
[2021-09-14] MEDS: 0.9 % Sodium Chloride Flush 3 ML SYRINGE IVFLUSH (00:09)
[2021-09-14 04:00] VITALS: BP 117/55; PULSE 66; RESP 15; O2SAT 100
[2021-09-14 04:21] VITALS: PULSE 90; RESP 16; O2SAT 96
--- NOTE | 2021-09-14 05:30 | PC.NURSE ---
NO VOID,BLADDER SCAN FOR 394cc.DENIES NEED TO VOID AT THIS TIME.CONT TO MONITOR.
[2021-09-14] MEDS: Omeprazole 40 MG CAPSULE.DR PO (06:32)
[2021-09-14 07:07] LABS: Glucose, Whole Blood 155 mg/dL (60-115)
[2021-09-14 07:46] VITALS: BP 129/81; PULSE 73; RESP 19; TEMP 36.6; O2SAT 100
[2021-09-14] MEDS: Insulin Lispro 100 UNIT/ML 3 ML VIAL SUBCUT (08:17)
[2021-09-14] MEDS: Tamsulosin HCL 0.4 MG CAPSULE 0.8 MG PO (08:18)
[2021-09-14] MEDS: Metoprolol Succinate ER 25 MG TAB.ER.24H PO (08:19)
[2021-09-14] MEDS: Isosorbide Mononitrate 60 MG TAB.ER.24H PO (08:19)
[2021-09-14 08:37] LABS: INTERNATIONAL NORM RATIO 1.5 (0.9-1.1); Prothrombin Time 17.3 SEC (9.9-13.0)
--- NOTE | 2021-09-14 10:58 | PM.PNNEP ---
Subjective Subjective Date of Service: 09/14/21 Interval history: Events noted. All recent data reviewed Physical Exam Vital Signs: Vital Signs: Last Vital Signs Temp 97.8 F 09/14/21 07:46 Pulse 73 09/14/21 07:46 Resp 19 09/14/21 07:46 BP 129/81 09/14/21 07:46 Pulse Ox 100 09/14/21 07:46 Oxygen Flow Rate 2 09/08/21 08:27 BMI result Body Mass Index 28.7 Const: General: comfortable Orientation/consciousness: patient oriented x3 Eyes: EOM: EOMs intact bilaterally Neck: Neck: Yes supple Resp: Auscultation: diminished lung sounds Cardio: Rate: regular rate GI: Palpation (GI): Soft to palpation Neuro: General: patient oriented x3 and moves all extremities Objective Data Labs CBC & Chem 7: 09/09/21 06:46 09/12/21 06:15 Labs: Laboratory Results - last 24 hr 09/13/21 09/13/21 09/13/21 10:55 16:07 20:17 PT INR POC Glucose 181 H 192 H 214 H 09/14/21 09/14/21 07:03 08:26 PT 17.3 H INR 1.5 H POC Glucose 155 H Microbiology Microbiology Results: Microbiology 09/08/21 10:21 Blood - Venous Blood Culture - Final No growth after 5 days. 09/08/21 10:21 Blood - Venous Blood Culture - Final No growth after 5 days. 09/08/21 10:21 Urine Catheterized - Camilo Catheter Urine Culture - Final Enterococcus faecalis Procedures Date of Service Date of Service: 09/14/21 Assessment & Plan Assessment and plan (1) NIRAJ (acute kidney injury): Status: Acute Assessment and Plan: 1. NIRAJ: resolving off diuretics c/w renal hypoperfsuionand vol sensitive and Ur retention playing a role 2. CKD 4: BSL SCr 1.5-2.5 dependent on vol status 3. Hypervol/CHF: very delicate management as he is prone to too wet or dry; he has a cardiomems and Card/HF team managing diuretics as outpt C/W current supportive care for now. Labs AM. Shall F/U Time Spent With Patient Time: Total time spent is greater than 50% in coordination of care (as documented) at patient's floor/unit and/or counseling patient: Progress Note: Quality Stroke Does the patient have a stroke diagnosis?: No
--- NOTE | 2021-09-14 11:28 | MHC.CM.PN ---
IMM 09/12/21 Male 61 DX NIRAJ is discharged today to [facility]. Transportation was provided by [facility]. All discharge information was sent yesterday.
== END 2021-09-14 10:30 | disposition skilled nursing facility (03) | DRG 682 ==
LOC: HO.ED 12:18 → HO.EDOVER 13:55 → HO.IMC 09-09 01:40
PROVIDERS: Admitting Provider Student in an Organized Health Care Education/Training Program; Emergency Provider Emergency Medicine; PCP Nurse Practitioner Family; Visit Provider Internal Medicine
DX: N17.9 Acute kidney failure, unspecified (principal); G92.8 Other toxic encephalopathy; I13.0 Hypertensive heart and chronic kidney disease with heart failure and stage 1 through stage 4 chronic kidney disease, or unspecified chronic kidney disease; I50.42 Chronic combined systolic (congestive) and diastolic (congestive) heart failure; N39.0 Urinary tract infection, site not specified; Z95.811 Presence of heart assist device; J96.11 Chronic respiratory failure with hypoxia; I48.20 Chronic atrial fibrillation, unspecified; E87.1 Hypo-osmolality and hyponatremia; E87.5 Hyperkalemia; I25.10 Atherosclerotic heart disease of native coronary artery without angina pectoris; Z99.81 Dependence on supplemental oxygen; E11.22 Type 2 diabetes mellitus with diabetic chronic kidney disease; N18.30 Chronic kidney disease, stage 3 unspecified; B96.20 Unspecified Escherichia coli [E. coli] as the cause of diseases classified elsewhere; R33.9 Retention of urine, unspecified; B95.2 Enterococcus as the cause of diseases classified elsewhere; I27.20 Pulmonary hypertension, unspecified; G47.33 Obstructive sleep apnea (adult) (pediatric); Z20.822 Contact with and (suspected) exposure to COVID-19; Z87.440 Personal history of urinary (tract) infections; Z79.4 Long term (current) use of insulin; Z79.01 Long term (current) use of anticoagulants; Z79.899 Other long term (current) drug therapy
CPT/HCPCS: 36415; 70450; 71045; 80048; 80076; 80307; 81001; 82140; 82947; 83605; 83735; 83880; 84300; 84484; 85025; 85027; 85610; 87040; 87086; 87088; 87186; 87635; 93005; 94660; 96361; 96365; 96366; 96367; 96375; 97116; 97163; 99285; 99291; J0610; J0696

== ENCOUNTER → 2021-09-29 13:37 | Outpatient (BNVA) | payer MEDICARE, MEDICAID, SELFPAY | PROVIDERS: PCP Nurse Practitioner Family; Visit Provider Internal Medicine | DX: I48.20 Chronic atrial fibrillation, unspecified (principal); Z51.81 Encounter for therapeutic drug level monitoring; Z79.01 Long term (current) use of anticoagulants | CPT/HCPCS: Q3014 ==

== ENCOUNTER → 2021-10-03 15:41 | Outpatient (BNVA) | payer MEDICARE, MEDICAID, SELFPAY | PROVIDERS: PCP Nurse Practitioner Family; Visit Provider Internal Medicine | DX: I48.20 Chronic atrial fibrillation, unspecified (principal); Z51.81 Encounter for therapeutic drug level monitoring; Z79.01 Long term (current) use of anticoagulants | CPT/HCPCS: Q3014 ==

== ENCOUNTER → 2021-10-06 10:36 | Outpatient (BNVA) | payer MEDICARE, MEDICAID, SELFPAY | PROVIDERS: PCP Nurse Practitioner Family; Visit Provider Internal Medicine | DX: I48.20 Chronic atrial fibrillation, unspecified (principal); Z51.81 Encounter for therapeutic drug level monitoring; Z79.01 Long term (current) use of anticoagulants | CPT/HCPCS: Q3014 ==

== ENCOUNTER → 2021-10-10 13:00 | Outpatient (BNVA) | payer MEDICARE, MEDICAID, SELFPAY | PROVIDERS: PCP Nurse Practitioner Family; Visit Provider Internal Medicine | DX: I48.20 Chronic atrial fibrillation, unspecified (principal); Z51.81 Encounter for therapeutic drug level monitoring; Z79.01 Long term (current) use of anticoagulants | CPT/HCPCS: 85610; 99211 ==

== ENCOUNTER → 2021-10-18 09:12 | Outpatient (BNVA) | payer MEDICARE, MEDICAID, SELFPAY | PROVIDERS: PCP Nurse Practitioner Family; Visit Provider Internal Medicine | DX: I48.0 Paroxysmal atrial fibrillation (principal); Z79.01 Long term (current) use of anticoagulants; Z51.81 Encounter for therapeutic drug level monitoring | CPT/HCPCS: 85610; 99211 ==

== ENCOUNTER 2021-11-01 08:41 | Inpatient (IN) | payer MEDICARE, MEDICAID, SELFPAY ==
--- NOTE | 2021-11-01 | ECG_ITS ---
Test Reason : cp Blood Pressure : / mmHG Vent. Rate : 079 BPM Atrial Rate : 000 BPM P-R Int : 000 ms QRS Dur : 094 ms QT Int : 394 ms P-R-T Axes : 000 -44 154 degrees QTc Int : 451 ms Atrial fibrillation Left axis deviation Low voltage QRS Inferior infarct (cited on or before 25-JUL-2014) Cannot rule out Anteroseptal infarct (cited on or before 17-AUG-2014) T wave abnormality, consider lateral ischemia Abnormal ECG When compared with ECG of 08-SEP-2021 09:57, Significant changes have occurred Referred By: Generic ED Physician Electronically Signed By:KAYCE LANGLEY MD
--- NOTE | ~2021-11-01 | US_ITS ---
EXAMINATION: US ABDOMEN LIMITED CLINICAL INFORMATION: Abdominal distention. Weight gain.. COMPARISON: 07/16/2015 TECHNIQUE: Limited sonographic examination of the abdomen US/US abdomen limited FINDINGS/IMPRESSION: No ascites.
--- NOTE | ~2021-11-01 | XR_ITS ---
EXAMINATION: XR CHEST CLINICAL INFORMATION: Chest pain. COMPARISON: 09/08/2021 chest radiographs. TECHNIQUE: 2 views of the chest were obtained. FINDINGS: No significant abnormality is noted involving the heart, lungs, mediastinum, bony thorax or soft tissues. XR/XR chest 2V IMPRESSION: No acute cardiopulmonary process.
[2021-11-01 08:49] VITALS: PULSE 75; RESP 20; TEMP 36.6; O2SAT 98; BMI 33.5
[2021-11-01 09:05] LABS: MANUAL DIFF FLAG NO
[2021-11-01 09:07] LABS: Basophils Percent Auto 0.5 % (0-2); Eosinophils Absolute Auto 0.2 X10*3/uL (0.0-0.4); Eosinophils Percent Auto 2.1 % (0-4); Hematocrit 32.2 % (42.0-52.0); Hemoglobin 10.1 g/dl (14.0-18.0); Imm Gran Abs Auto 0.02 X10*3/uL (0.00-0.03); Imm Gran Pct Auto 0.3 % (0.0-0.4); Lymphocytes Absolute Auto 0.8 X10*3/uL (1.2-4.9); Lymphocytes Percent Auto 9.7 % (20-40); Mean Corpuscular HGB Conc 31.4 g/dl (31.0-36.0); Mean Corpuscular Hemoglobin 28.1 pg (27.0-33.0); Mean Corpuscular Volume 89.7 fL (80.0-98.0); Mean Platelet Volume 9.4 fL (9.4-12.4); Monocytes Absolute Auto 0.7 X10*3/uL (0.1-1.2); Monocytes Percent Auto 8.7 % (2-11); Neutrophils Absolute Auto 6.1 x10*3/uL (2.0-8.3); Neutrophils Percent Auto 78.7 % (45-73); Platelet Count 277 X10*3/uL (160-400); Red Blood Count 3.59 X10*6/uL (4.60-5.80); Red Cell Distribution Width 15.9 % (11.0-16.0); White Blood Count 7.7 X10*3/uL (4.8-10.8)
[2021-11-01 09:11] LABS: INTERNATIONAL NORM RATIO 3.5 (0.9-1.1); Prothrombin Time 40.6 SEC (9.9-13.0)
[2021-11-01 09:23] LABS: Anion Gap 15 (12-20); Blood Urea Nitrogen 55 mg/dL (9-16); Carbon Dioxide 22 mmol/L (22-29); Chloride 105 mmol/L (96-108); Creatinine Clr Calc Pharmacy 48.9; Estimated Glomerular Filt Rate 34; Glucose Random 205 mg/dL (60-115); Potassium 3.6 mmol/L (3.3-5.1); Sodium 138 mmol/L (135-145)
[2021-11-01 09:30] LABS: B Type Natriuretic Peptide 412 pg/mL (<100); Troponin-I High Sensitivity 10.2 ng/L (<3.5-35.0)
[2021-11-01 09:37] LABS: COVID-19 Test Negative (Negative); IDNOW Serial# 16C4AD1C; Influenza A Negative (Negative); Influenza B2 Negative (Negative)
--- NOTE | 2021-11-01 10:25 | ED_ITS ---
HPI - Chest Pain General Chief Complaint: Chest Pain Stated Complaint: SOB/Chest pain Time Seen by Provider: 11/01/21 10:25 Source: patient Mode of arrival: ambulatory Limitations: no limitations History of Present Illness HPI narrative: Patient presents to the emergency department with reports of shortness of breath with onset yesterday morning. In addition he is having intermittent substernal chest pain that is brief and seems exacerbated by periods of shortness of breath. He reports a 20 lb weight gain over the past 3 days, and is having generalized body aches. He has a red spotted rash to the bilateral arms abdomen and is now spreading onto his legs that has been present for about 1 week. Denies headache, dizziness, lightheadedness, sore throat, cough, abdominal pain, nausea, vomiting dysuria, urinary frequency, pedal edema, generalized weakness. Related Data Home Medications Medication Instructions Recorded Confirmed atorvastatin 80 mg tablet 1 tab PO BEDTIME 05/08/20 11/01/21 metoprolol succinate 25 mg 1 tab PO DAILY 05/08/20 11/01/21 tablet,extended release 24 hr isosorbide mononitrate 60 mg 1 tab PO DAILY 07/17/21 11/01/21 tablet,extended release 24 hr torsemide 100 mg tablet 1 tab PO BIDWM 07/17/21 11/01/21 insulin glargine 100 unit/mL (3 15 unit SUBCUT BEDTIME 10/06/21 11/01/21 mL) subcutaneous pen (Lantus Solostar U-100 Insulin) pen needle, diabetic 31 gauge x #1200 ea 10/06/21 10/06/21 5/16 (BD Ultra-Fine Short Pen Needle) amlodipine 10 mg tablet (Norvasc) 10 mg PO DAILY 11/01/21 11/01/21 potassium chloride 20 mEq 40 meq PO BID 11/01/21 11/01/21 tablet,extended release warfarin 2.5 mg tablet 2.5 mg PO MOTUWETHFRSA@1800 11/01/21 11/01/21 warfarin 2.5 mg tablet 5 mg PO LU@1800 11/01/21 11/01/21 Previous Rx's Medication Instructions Recorded amitriptyline 50 mg tablet 1 tab PO BEDTIME #0 tab 09/12/21 tamsulosin 0.4 mg capsule 0.8 mg PO DAILY #60 cap 09/12/21 Allergies Allergy/AdvReac Type Severity Reaction Status Date / Time No Known Allergies Allergy Unknown NKDA Verified 10/18/21 09:25 Review of Systems Review of Systems: Constitutional : No Weight loss, No Fever, No Chills ENT/Mouth :? No sore throat, No Rhinorrhea Eyes: No Eye Pain, No Swelling Cardiovascular : pos Chest Pain, pos SOB, positive Dyspnea on Exertion, No Orthopnea, No Edema, No Palpitations Respiratory : No Cough, No Sputum Gastrointestinal : no Nausea, No Vomiting, No Diarrhea, No abdominal Pain, No Hematochezia, No Melena Genitourinary : No Dysuria, No Urinary Frequency Musculoskeletal : No joint pain, No Myalgias, No Joint Swelling Skin : No Skin Lesions, positive rash Neuro : No Weakness, No Numbness, No Dizziness, No Headache Psych : No Anxiety/Panic, No Depression Heme/Lymph: No Bruising, No Lymphadenopathy Endocrine : No Polyuria, No Polydipsia Yes all other systems are reviewed and are negative PMFSH Past Medical History Attestation statement: The following information was validated with the patient. Source: old records reviewed Medical History Anasarca Atrial fibrillation CAD (coronary artery disease) Cataract Cholecystectomy planned Chronic combined systolic and diastolic congestive heart failure Chronic respiratory failure CKD (chronic kidney disease) stage 3, GFR 30-59 ml/min CVA (cerebral vascular accident) Diabetes Gross hematuria Heart attack HTN (hypertension) Hyperlipidemia Neuropathy DARLENE on CPAP Permanent atrial fibrillation Polycythemia vera Pulmonary hypertension Toe amputee Urinary retention with incomplete bladder emptying Surgical History History of cholecystectomy Family History Family History Father Diabetes Hx of cancer antigen 125 (CA-125) measurement Mother Diabetes Brother Diabetes Hx of cancer antigen 125 (CA-125) measurement Social History Social History Household Members: Other 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 Blood pressure normal.? Heart rate normal.? Respiration rate normal. Temperature normal.? Oxygen saturation normal. Appearance: Alert.?Oriented to person, place and time. No acute distr ess.?Normal affect. Eyes: Pupils equal, round and reactive to light.? Sclera anicteric ENT: Pharynx normal.?? Neck: Normal inspection.? Neck supple.?? CVS: Heart sounds normal. Normal heart rate and rhythm.? Pulses normal.?? Respiratory: No respiratory distress.? Lung sounds clear to auscultation bilaterally?? Abdomen: Mild distension, non-tender. Normoactive bowel sounds. No pulsatile mass.?? Skin: Skin warm and dry.? Jaundiced. Petechiae to the bilateral arms, palms, abdomen, lower back, and legs. Extremities: No lower extremity edema. Stasis dermatitis bilaterally.? No calf ttp? Neuro: Moves all extremities spontaneously. Sensation intact bilaterally. CN II- XII intact. No focal neuro deficits. Ambulates with normal steady gait. Course Course Course Narrative: Patient is a 61-year-old male with history of atrial fibrillation on Coumadin, polycythemia vera, obstructive sleep apnea, chronic kidney disease, type 2 diabetic insulin dependent, CHF, pulmonary hypertension, MS, CVA. He presents for evaluation of shortness of breath and chest pain, and a 20lb weight gain over 3 days. He is currently taking torsemide 100 mg twice daily. Lung sounds are clear on exam, no increased work of breathing, no tachypnea or hypoxia. Does appear slightly jaundiced, though his skin is very paez in appearance, and his abdomen is round in somewhat distended, however has no pedal edema. Will obtain ultrasound of the abdomen to evaluate for ascites He denies any history of liver problems in the past, or ever needing an paracentesis, but he does have history of heart failure. CBC, CMP, CXR, EKG and troponin. Reevaluation(s) Reevaluation #1: Normocytic anemia hemoglobin 10.1 hematocrit 32.2. BNP of 412. BUN and creatinine 55 and 2.04 which appears consistent with his baseline CKD. INR of 3.5 on Coumadin therapy. Alk phos is elevated 171 which appears consistent with prior labs, elevated bilirubin, transaminases are normal. Troponin 10.2, repeat trop 8.1, <50% delta, EKG reveals atrial fibrillation with no RVR, HEART score of 3. Ultrasound of the abdomen reveals no ascites. Discussed case with ED attending Dr. Yang, recommended obtaining D-dimer to exclude pulmonary embolism though significantly unlikely given he is anticoagulated with INR 3.5, not totally impossible. Time: 12:30 Reevaluation #2: Ambulation O2 trial reveals O2 saturation dropping down to 70% on room air. He states that in August 2021 when he was ill with COVID he was using O2 chronically at 2 L. However prior to that and since he has been discharged home he has not required any O2 supplementation. Spoke with hospitalist Dr haile, who accepts patient for admission to Medicine for hypoxia and shortness of breath. Discussed this with patient he is agreeable to plan of care. Time: 13:07 [facility] - Chest Pain Medical Records Data Attestation: I reviewed the patient's medical records. Lab Data Attestation: I reviewed the patient's lab results. Result diagrams: 11/01/21 08:58 11/01/21 08:58 Labs: Lab Results 11/01/21 11/01/21 11/01/21 Range/Units 08:58 08:58 08:58 WBC 7.7 (4.8-10.8) X10*3/uL RBC 3.59 L (4.60-5.80) X10*6/uL Hgb 10.1 L (14.0-18.0) g/dl Hct 32.2 L (42.0-52.0) % MCV 89.7 (80.0-98.0) fL MCH 28.1 (27.0-33.0) pg MCHC 31.4 (31.0-36.0) g/dl RDW 15.9 (11.0-16.0) % Plt Count 277 (160-400) X10*3/uL MPV 9.4 (9.4-12.4) fL Immature Gran % (Auto) 0.3 (0.0-0.4) % Neut % (Auto) 78.7 H (45-73) % Lymph % (Auto) 9.7 L (20-40) % [place] % (Auto) 8.7 (2-11) % Eos % (Auto) 2.1 (0-4) % Baso % (Auto) 0.5 (0-2) % Lymph # (Auto) 0.8 L (1.2-4.9) X10*3/uL [place] # (Auto) 0.7 (0.1-1.2) X10*3/uL Eos # (Auto) 0.2 (0.0-0.4) X10*3/uL Baso # (Auto) 0.0 (0.0-0.2) X10*3/uL Abs Immat Gran (auto) 0.02 (0.00-0.03) X10*3/uL Absolute Neuts (auto) 6.1 (2.0-8.3) x10*3/uL Absolute Nucleated RBC 0.000 (0.0-0.012) X10*3/uL Nucleated RBC % (auto) 0.0 (0.0-0.2) /100WBC PT (9.9-13.0) SEC INR (0.9-1.1) D-Dimer High Sensitivty NG/ML Sodium 138 (135-145) mmol/L Potassium 3.6 (3.3-5.1) mmol/L Chloride 105 (96-108) mmol/L Carbon Dioxide 22 (22-29) mmol/L Anion Gap 15 (12-20) BUN 55 H (9-16) mg/dL Creatinine 2.04 H (0.5-1.4) mg/dL Estim Creat Clear Calc 48.9 Estimated GFR 34 Random Glucose 205 H (60-115) mg/dL Calcium 9.0 D (8.4-10.2) mg/dL Total Bilirubin 1.1 H (0.0-1.0) mg/dL Direct Bilirubin 0.6 H (0.0-0.5) mg/dL AST 15 D (5-37) U/L ALT 8 (0-40) U/L Alkaline Phosphatase 171 H D (39-117) U/L Troponin I High Sens 10.2 (<3.5-35.0) ng/L B-Natriuretic Peptide 412 H (<100) pg/mL Total Protein 7.2 (6.5-8.0) g/dL Albumin 3.0 L (3.5-5.0) g/dL COVID-19 (POWER) (Negative) COVID-19 Clin Com Influenza Type A (RAY) (Negative) Influenza Type B (RAY) (Negative) Influenza A & B Note 11/01/21 11/01/21 11/01/21 Range/Units 08:58 08:58 08:58 WBC (4.8-10.8) X10*3/uL RBC (4.60-5.80) X10*6/uL Hgb (14.0-18.0) g/dl Hct (42.0-52.0) % MCV (80.0-98.0) fL MCH (27.0-33.0) pg MCHC (31.0-36.0) g/dl RDW (11.0-16.0) % Plt Count (160-400) X10*3/uL MPV (9.4-12.4) fL Immature Gran % (Auto) (0.0-0.4) % Neut % (Auto) (45-73) % Lymph % (Auto) (20-40) % [place] % (Auto) (2-11) % Eos % (Auto) (0-4) % Baso % (Auto) (0-2) % Lymph # (Auto) (1.2-4.9) X10*3/uL [place] # (Auto) (0.1-1.2) X10*3/uL Eos # (Auto) (0.0-0.4) X10*3/uL Baso # (Auto) (0.0-0.2) X10*3/uL Abs Immat Gran (auto) (0.00-0.03) X10*3/uL Absolute Neuts (auto) (2.0-8.3) x10*3/uL Absolute Nucleated RBC (0.0-0.012) X10*3/uL Nucleated RBC % (auto) (0.0-0.2) /100WBC PT 40.6 H (9.9-13.0) SEC INR 3.5 H D (0.9-1.1) D-Dimer High Sensitivty NG/ML Sodium (135-145) mmol/L Potassium (3.3-5.1) mmol/L Chloride (96-108) mmol/L Carbon Dioxide (22-29) mmol/L Anion Gap (12-20) BUN (9-16) mg/dL Creatinine (0.5-1.4) mg/dL Estim Creat Clear Calc Estimated GFR Random Glucose (60-115) mg/dL Calcium (8.4-10.2) mg/dL Total Bilirubin (0.0-1.0) mg/dL Direct Bilirubin (0.0-0.5) mg/dL AST (5-37) U/L ALT (0-40) U/L Alkaline Phosphatase (39-117) U/L Troponin I High Sens (<3.5-35.0) ng/L B-Natriuretic Peptide (<100) pg/mL Total Protein (6.5-8.0) g/dL Albumin (3.5-5.0) g/dL COVID-19 (POWER) Negative (Negative) COVID-19 Clin Com See Note Influenza Type A (RAY) Negative (Negative) Influenza Type B (RAY) Negative (Negative) Influenza A & B Note See Note 11/01/21 11/01/21 Range/Units 11:54 13:49 WBC (4.8-10.8) X10*3/uL RBC (4.60-5.80) X10*6/uL Hgb (14.0-18.0) g/dl Hct (42.0-52.0) % MCV (80.0-98.0) fL MCH (27.0-33.0) pg MCHC (31.0-36.0) g/dl RDW (11.0-16.0) % Plt Count (160-400) X10*3/uL MPV (9.4-12.4) fL Immature Gran % (Auto) (0.0-0.4) % Neut % (Auto) (45-73) % Lymph % (Auto) (20-40) % [place] % (Auto) (2-11) % Eos % (Auto) (0-4) % Baso % (Auto) (0-2) % Lymph # (Auto) (1.2-4.9) X10*3/uL [place] # (Auto) (0.1-1.2) X10*3/uL Eos # (Auto) (0.0-0.4) X10*3/uL Baso # (Auto) (0.0-0.2) X10*3/uL Abs Immat Gran (auto) (0.00-0.03) X10*3/uL Absolute Neuts (auto) (2.0-8.3) x10*3/uL Absolute Nucleated RBC (0.0-0.012) X10*3/uL Nucleated RBC % (auto) (0.0-0.2) /100WBC PT (9.9-13.0) SEC INR (0.9-1.1) D-Dimer High Sensitivty 449 NG/ML Sodium (135-145) mmol/L Potassium (3.3-5.1) mmol/L Chloride (96-108) mmol/L Carbon Dioxide (22-29) mmol/L Anion Gap (12-20) BUN (9-16) mg/dL Creatinine (0.5-1.4) mg/dL Estim Creat Clear Calc Estimated GFR Random Glucose (60-115) mg/dL Calcium (8.4-10.2) mg/dL Total Bilirubin (0.0-1.0) mg/dL Direct Bilirubin (0.0-0.5) mg/dL AST (5-37) U/L ALT (0-40) U/L Alkaline Phosphatase (39-117) U/L Troponin I High Sens 8.1 (<3.5-35.0) ng/L B-Natriuretic Peptide (<100) pg/mL Total Protein (6.5-8.0) g/dL Albumin (3.5-5.0) g/dL COVID-19 (POWER) (Negative) COVID-19 Clin Com Influenza Type A (RAY) (Negative) Influenza Type B (RAY) (Negative) Influenza A & B Note Imaging Data Chest x-ray: Radiologist's impression: XR/XR chest 2V IMPRESSION: No acute cardiopulmonary process. US - abdomen: Radiologist's impression: US/US abdomen limited FINDINGS/IMPRESSION: ? No ascites.? ECG Data ECG #1: Attestation: I personally reviewed and interpreted this ECG as follows: ECG interpretation date: 11/01/21 ECG interpretation time: 10:25 Interpretation: Rate: 79 Rhythm:? Atrial fibrillation [place]:? Left axis deviation Normal P waves.? Normal [place].?? Normal QRS complex.?? ST T wave :??No ST elevation, no ST depression, T-wave inversion and I and V6 noted similarly in Jul 2021 qTC: 451 prior studies:? August 2021 The study has been interpreted contemporaneously by me. Discharge Plan Discharge Clinical Impression: Hypoxia, Shortness of breath Patient Disposition: Admitted As Inpatient
[2021-11-01 11:07] VITALS: BP 126/71; PULSE 67; RESP 13; TEMP 36.5; O2SAT 93
[2021-11-01 11:21] LABS: Alanine Aminotransferase 8 U/L (0-40); Alkaline Phosphatase 171 U/L (39-117); Aspartate Amino Transferase 15 U/L (5-37); Bilirubin Direct 0.6 mg/dL (0.0-0.5); Bilirubin Total 1.1 mg/dL (0.0-1.0); Total Protein 7.2 g/dL (6.5-8.0)
[2021-11-01 12:20] LABS: Troponin-I High Sensitivity 8.1 ng/L (<3.5-35.0)
[2021-11-01 13:18] VITALS: O2SAT 77
[2021-11-01 14:06] LABS: D Dimer High Sensitivity 449 NG/ML
--- NOTE | 2021-11-01 14:41 | PHA.MEDREC ---
Pharmacy Consult ? Medication Reconciliation Pharmacy has completed the medication reconciliation. Pt only takes 100 mg torsemide bid not 40 mg bid. Prilosec stopped per pt
[2021-11-01 14:52] VITALS: BP 134/79; PULSE 68; RESP 15; TEMP 36.4; O2SAT 100
[2021-11-01] MEDS: Torsemide 20 MG TABLET 100 MG PO (17:12)
[2021-11-01] MEDS: 0.9 % Sodium Chloride Flush 3 ML SYRINGE IVFLUSH (17:12)
--- NOTE | 2021-11-01 17:53 | PM.IMHP ---
History of Present Illness Date of Service: 11/01/21 Chief Complaint: SOB Patient presents to the emergency department with reports of shortness of breath with onset yesterday morning.? In addition he is having intermittent substernal chest pain that is brief and seems exacerbated by periods of shortness of breath.? He reports a 20 lb weight gain over the past 3 days, and is having generalized body aches.? He has a red spotted rash to the bilateral arms abdomen and is now spreading onto his legs that has been present for about 1 week.? Denies headache, dizziness, lightheadedness, sore throat, cough, abdominal pain, nausea, vomiting dysuria, urinary frequency, pedal edema, generalized weakness. Review of Systems Review of Systems: Admits to intermittent chest pain Admits to shortness of breath with exertion Denies nausea vomiting diarrhea Denies fever chills [facility] Medical History Anasarca Atrial fibrillation CAD (coronary artery disease) Cataract Cholecystectomy planned Chronic combined systolic and diastolic congestive heart failure Chronic respiratory failure CKD (chronic kidney disease) stage 3, GFR 30-59 ml/min CVA (cerebral vascular accident) Diabetes Gross hematuria Heart attack HTN (hypertension) Hyperlipidemia Neuropathy DARLENE on CPAP Permanent atrial fibrillation Polycythemia vera Pulmonary hypertension Toe amputee Urinary retention with incomplete bladder emptying Family History Father Diabetes Hx of cancer antigen 125 (CA-125) measurement Mother Diabetes Brother Diabetes Hx of cancer antigen 125 (CA-125) measurement Surgical History History of cholecystectomy Social History Household Members: Other 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: 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 Do you presently have visiting nurse or other home services: No Alcohol intake: former Patient Tobacco Use Status: Never used Tobacco Advance Directives: Yes Advance Directives on File: Yes Advance Directives Date on File: 09/15/21 service: No Current occupational status: disabled Meds Allergies Allergy/AdvReac Type Severity Reaction Status Date / Time No Known Allergies Allergy Unknown NKDA Verified 10/18/21 09:25 Active Medications: Current Medications Amitriptyline HCl (Amitriptyline Hcl 50 Mg Tablet) 50 mg PO BEDTIME ALEM Amlodipine Besylate (Amlodipine Besylate 10 Mg Tablet) 10 mg PO DAILY ALEM; Protocol Atorvastatin Calcium (Atorvastatin Calcium 80 Mg Tablet) 80 mg PO BEDTIME [facility] Insulin Glargine (Insulin Glargine,Hum.Rec.Anlog 100 Unit/Ml 10 Ml Vial) 15 unit SUBCUT BEDTIME [facility] Isosorbide Mononitrate (Isosorbide Mononitrate 60 Mg Tab.Er.24h) 60 mg PO DAILY ALEM; Protocol Metoprolol Succinate (Metoprolol Succinate Er 25 Mg Tab.Er.24h) 25 mg PO DAILY ALEM; Protocol Pharmacy Consult (Consult Rx Perform Med Rec) 1 each MISCELLANE ONCE PRN PRN Reason: Consult order Potassium Chloride (Potassium Chloride Er 20 Meq Tab.Er.Prt) 40 meq PO BID [facility] Sodium Chloride (0.9 % Sodium Chloride Flush 3 Ml Syringe) 3 ml IVFLUSH QSHIFT [facility] Last Admin: 11/01/21 17:12 Dose: 3 ml Documented by: Tamsulosin HCl (Tamsulosin Hcl 0.4 Mg Capsule) 0.8 mg PO DAILY [facility] Torsemide (Torsemide 20 Mg Tablet) 100 mg PO BIDWM [facility]; Protocol Last Admin: 11/01/21 17:12 Dose: 100 mg Documented by: Warfarin Sodium (Warfarin Sodium 5 Mg Tablet) 5 mg PO LU@1800 ALEM Warfarin Sodium (Warfarin Sodium 2.5 Mg Tablet) 2.5 mg PO MOTUWETHFRSA@1800 [facility] Home Medications Medication Instructions Recorded Confirmed Last Taken Type atorvastatin 80 mg tablet 1 tab PO BEDTIME 05/08/20 11/01/21 10/31/21 History metoprolol succinate 25 mg 1 tab PO DAILY 05/08/20 11/01/21 11/01/21 History tablet,extended release 24 hr isosorbide mononitrate 60 mg 1 tab PO DAILY 07/17/21 11/01/21 11/01/21 History tablet,extended release 24 hr torsemide 100 mg tablet 1 tab PO BIDWM 07/17/21 11/01/21 11/01/21 History insulin glargine 100 unit/mL (3 15 unit SUBCUT BEDTIME 10/06/21 11/01/21 10/31/21 History mL) subcutaneous pen (Lantus Solostar U-100 Insulin) pen needle, diabetic 31 gauge x #1200 ea 10/06/21 10/06/21 Unknown History 11/14 (BD Ultra-Fine Short Pen Needle) amlodipine 10 mg tablet (Norvasc) 10 mg PO DAILY 11/01/21 11/01/21 11/01/21 History potassium chloride 20 mEq 40 meq PO BID 11/01/21 11/01/21 11/01/21 History tablet,extended release warfarin 2.5 mg tablet 2.5 mg PO MOTUWETHFRSA@1800 11/01/21 11/01/21 10/31/21 History warfarin 2.5 mg tablet 5 mg PO LU@1800 11/01/21 11/01/21 10/30/21 History Physical Exam Vital Signs and Narrative: Vital Signs: Last Vital Signs Temp 97.6 F 11/01/21 14:52 Pulse 68 11/01/21 14:52 Resp 15 11/01/21 14:52 BP 134/79 11/01/21 14:52 Pulse Ox 100 11/01/21 14:52 BMI result Body Mass Index 33.5 Const: Other: Awake alert oriented x3 no acute distress Resp: Other: Clear to auscultation bilaterally no rales rhonchi wheezes Cardio: Other: No S4; positive S1-S2; no S3 murmurs rubs or gallops GI: Other: Soft nontender nondistended normoactive bowel sounds Extrem: Other: 20 changes consistent with chronic venous stasis disease. No edema bilaterally Results Labs CBC and Chem 7: 11/01/21 08:58 11/01/21 08:58 Labs: Laboratory Results - last 24 hr 11/01/21 11/01/21 11/01/21 08:58 08:58 08:58 MCV 89.7 MCH 28.1 MCHC 31.4 RDW 15.9 Plt Count 277 MPV 9.4 Immature Gran % (Auto) 0.3 Neut % (Auto) 78.7 H Lymph % (Auto) 9.7 L [place] % (Auto) 8.7 Eos % (Auto) 2.1 Baso % (Auto) 0.5 Lymph # (Auto) 0.8 L [place] # (Auto) 0.7 Eos # (Auto) 0.2 Baso # (Auto) 0.0 Abs Immat Gran (auto) 0.02 Absolute Neuts (auto) 6.1 Absolute Nucleated RBC 0.000 Nucleated RBC % (auto) 0.0 PT INR D-Dimer High Sensitivty Anion Gap 15 Estim Creat Clear Calc 48.9 Estimated GFR 34 Random Glucose 205 H Calcium 9.0 D Total Bilirubin 1.1 H Direct Bilirubin 0.6 H AST 15 D ALT 8 Alkaline Phosphatase 171 H D Troponin I High Sens 10.2 B-Natriuretic Peptide 412 H Total Protein 7.2 Albumin 3.0 L COVID-19 (POWER) COVID-19 Clin Com Influenza Type A (RAY) Influenza Type B (RAY) Influenza A & B Note 11/01/21 11/01/21 11/01/21 08:58 08:58 08:58 MCV MCH MCHC RDW Plt Count MPV Immature Gran % (Auto) Neut % (Auto) Lymph % (Auto) [place] % (Auto) Eos % (Auto) Baso % (Auto) Lymph # (Auto) [place] # (Auto) Eos # (Auto) Baso # (Auto) Abs Immat Gran (auto) Absolute Neuts (auto) Absolute Nucleated RBC Nucleated RBC % (auto) PT 40.6 H INR 3.5 H D D-Dimer High Sensitivty Anion Gap Estim Creat Clear Calc Estimated GFR Random Glucose Calcium Total Bilirubin Direct Bilirubin AST ALT Alkaline Phosphatase Troponin I High Sens B-Natriuretic Peptide Total Protein Albumin COVID-19 (POWER) Negative COVID-19 Clin Com See Note Influenza Type A (RAY) Negative Influenza Type B (RAY) Negative Influenza A & B Note See Note 11/01/21 11/01/21 11:54 13:49 MCV MCH MCHC RDW Plt Count MPV Immature Gran % (Auto) Neut % (Auto) Lymph % (Auto) [place] % (Auto) Eos % (Auto) Baso % (Auto) Lymph # (Auto) [place] # (Auto) Eos # (Auto) Baso # (Auto) Abs Immat Gran (auto) Absolute Neuts (auto) Absolute Nucleated RBC Nucleated RBC % (auto) PT INR D-Dimer High Sensitivty 449 Anion Gap Estim Creat Clear Calc Estimated GFR Random Glucose Calcium Total Bilirubin Direct Bilirubin AST ALT Alkaline Phosphatase Troponin I High Sens 8.1 B-Natriuretic Peptide Total Protein Albumin COVID-19 (POWER) COVID-19 Clin Com Influenza Type A (RAY) Influenza Type B (RAY) Influenza A & B Note Imaging Radiologist's Impressions: Impressions Chest X-Ray 11/01/21 09:05 IMPRESSION: No acute cardiopulmonary process. Abdomen Ultrasound 11/01/21 11:39 FINDINGS/IMPRESSION: No ascites. Assessment and Plan (1) Acute on chronic diastolic HF (heart failure): Status: Acute (2) NIRAJ (acute kidney injury): Status: Acute (3) Atrial fibrillation: Status: Acute Plan 61-year-old male with a history of atrial fibrillation chronic kidney disease acute on chronic combined heart failure presents with worsening shortness of breath what and what he describes as a 20 lb weight gain. In the emergency room chest x-ray failed to demonstrate any acute abnormalities; BNP was only slightly elevated from baseline. When attempted ambulation in ER his sats dropped into the 70s which prompted his admission further workup 1. Acute on chronic diastolic heart failure -continue Demadex at outpatient dosing -2D echo in a.m. -cardiology consult 2. Chronic atrial fibrillation -rate control adequate -continue outpatient therapies -Coumadin with goal INR 2-3 3. NIRAJ -creatinine at baseline -follow renals/divalents Full code Coumadin Will require 1-2 midnights going forward for further workup of shortness of breath and cardiology consult Quality Stroke Does the patient have a stroke diagnosis?: No VTE Prior VTE?: No VTE Risk Level:: Medical - moderate - high VTE Device Contraindication: Treatment Not Indicated VTE Drug Contraindication: N/A - Med Ordered
[2021-11-01 19:45] VITALS: BP 127/68; PULSE 66; RESP 18; TEMP 36.6; O2SAT 99
[2021-11-01 19:58] VITALS: PULSE 68; O2SAT 100
[2021-11-01 20:50] LABS: Glucose, Whole Blood 224 mg/dL (60-115)
[2021-11-01] MEDS: Insulin Glargine,Hum.rec.anlog 100 UNIT/ML 10 ML VIAL 15 UNIT SUBCUT (21:08)
[2021-11-01] MEDS: Potassium Chloride ER 20 MEQ TAB.ER.PRT 40 MEQ PO (21:09)
[2021-11-01] MEDS: Atorvastatin Calcium 80 MG TABLET PO (21:09)
[2021-11-01] MEDS: Amitriptyline HCl 50 MG TABLET PO (21:34)
--- NOTE | 2021-11-01 22:55 | MHC.CM.PN ---
IMM 11/01. A&Ox4. HCP not on file. Copy requested. HCP/friend Ace Fishman ([phone]). Pt lives with Ace and his . 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 Has services with [facility]. Uses a cane, walker and wheelchair. Vax/boosted/Pfizer. Pt had Covid in July. Has services with [facility]. D/C plan is home with continued services. Pt to arrange transportation home. CM to follow for d/c needs.
--- NOTE | 2021-11-01 23:34 | PC.NURSE ---
pt given diet janet sandi
[2021-11-02 00:15] VITALS: PULSE 58; RESP 15; O2SAT 95
[2021-11-02] MEDS: 0.9 % Sodium Chloride Flush 3 ML SYRINGE IVFLUSH ×3 (01:19→22:03)
[2021-11-02] MEDS: Acetaminophen 325 MG TABLET 650 MG PO (01:55)
--- NOTE | 2021-11-02 01:57 | PC.NURSE ---
pt c/o rt medial ankle pain. a scab in healing stages is noted.
[2021-11-02 07:09] VITALS: BP 133/75; PULSE 65; RESP 18; O2SAT 98
[2021-11-02 07:45] LABS: Glucose, Whole Blood 215 mg/dL (60-115)
--- NOTE | 2021-11-02 08:16 | PC.NURSE ---
Report received. Patient is sitting up on stretcher, reporting he is exhausted and did not sleep well last night. Respirations regular and even. Skin PWD. Vitals WNL. Gave patient breakfast and he is sitting on bed eating independently at this time. Awaiting bed assignment at this time. Will continue to monitor.
[2021-11-02 08:32] LABS: MANUAL DIFF FLAG NO
[2021-11-02 08:40] LABS: Basophils Percent Auto 0.4 % (0-2); Eosinophils Absolute Auto 0.2 X10*3/uL (0.0-0.4); Eosinophils Percent Auto 2.3 % (0-4); Hematocrit 30.4 % (42.0-52.0); Hemoglobin 9.3 g/dl (14.0-18.0); Imm Gran Abs Auto 0.02 X10*3/uL (0.00-0.03); Imm Gran Pct Auto 0.3 % (0.0-0.4); Lymphocytes Absolute Auto 0.7 X10*3/uL (1.2-4.9); Lymphocytes Percent Auto 8.3 % (20-40); Mean Corpuscular HGB Conc 30.6 g/dl (31.0-36.0); Mean Corpuscular Hemoglobin 27.8 pg (27.0-33.0); Mean Platelet Volume 9.4 fL (9.4-12.4); Monocytes Absolute Auto 0.9 X10*3/uL (0.1-1.2); Monocytes Percent Auto 11.5 % (2-11); Neutrophils Percent Auto 77.2 % (45-73); Platelet Count 247 X10*3/uL (160-400); Red Blood Count 3.34 X10*6/uL (4.60-5.80); Red Cell Distribution Width 15.9 % (11.0-16.0); White Blood Count 7.8 X10*3/uL (4.8-10.8)
[2021-11-02 08:41] LABS: INTERNATIONAL NORM RATIO 3.4 (0.9-1.1); Prothrombin Time 39.6 SEC (9.9-13.0)
[2021-11-02 08:52] LABS: Alanine Aminotransferase 8 U/L (0-40); Albumin Level 2.7 g/dL (3.5-5.0); Alkaline Phosphatase 152 U/L (39-117); Anion Gap 12 (12-20); Aspartate Amino Transferase 14 U/L (5-37); Blood Urea Nitrogen 50 mg/dL (9-16); Calcium 8.5 mg/dL (8.4-10.2); Carbon Dioxide 25 mmol/L (22-29); Chloride 107 mmol/L (96-108); Creatinine Clr Calc Pharmacy 49.9; Estimated Glomerular Filt Rate 34; Glucose Fasting 260 mg/dL (60-99); Potassium 3.9 mmol/L (3.3-5.1); Sodium 140 mmol/L (135-145); Total Protein 6.8 g/dL (6.5-8.0)
[2021-11-02 08:54] LABS: B Type Natriuretic Peptide 482 pg/mL (<100)
[2021-11-02] MEDS: Torsemide 20 MG TABLET 100 MG PO (09:14)
[2021-11-02] MEDS: Potassium Chloride ER 20 MEQ TAB.ER.PRT 40 MEQ PO ×2 (09:15→22:01)
[2021-11-02] MEDS: Tamsulosin HCL 0.4 MG CAPSULE 0.8 MG PO (09:15)
[2021-11-02] MEDS: Metoprolol Succinate ER 25 MG TAB.ER.24H PO (09:16)
[2021-11-02] MEDS: amLODIPine Besylate 10 MG TABLET PO (09:16)
[2021-11-02] MEDS: Isosorbide Mononitrate 60 MG TAB.ER.24H PO (09:16)
--- NOTE | 2021-11-02 10:13 | P.CONCA_ITS ---
History of Present Illness History of Present Illness Date of Service: 11/02/21 Chief complaint: ADCHF Narrative: 61-year-old gentleman with known history of atrial fibrillation and chronic congestive heart failure who is presenting for 20 lb weight gain and shortness of breath. Clinically volume overloaded. Has been compliant with medications. He is saying he has not taken ext was all but drinks water fairly regularly. Taking medications regularly. He has a CardioMEMS device and has been followed closely by Dr Porter at [facility]. [facility] Past Medical History Medical History Anasarca Atrial fibrillation CAD (coronary artery disease) Cataract Cholecystectomy planned Chronic combined systolic and diastolic congestive heart failure Chronic respiratory failure CKD (chronic kidney disease) stage 3, GFR 30-59 ml/min CVA (cerebral vascular accident) Diabetes Gross hematuria Heart attack HTN (hypertension) Hyperlipidemia Neuropathy DARLENE on CPAP Permanent atrial fibrillation Polycythemia vera Pulmonary hypertension Toe amputee Urinary retention with incomplete bladder emptying Family History Family History Father Diabetes Hx of cancer antigen 125 (CA-125) measurement Mother Diabetes Brother Diabetes Hx of cancer antigen 125 (CA-125) measurement Surgical History Surgical History History of cholecystectomy Social History Social History Household Members: Other 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 Housing: 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 Do you presently have visiting nurse or other home services: No Alcohol intake: former Patient Tobacco Use Status: Never used Tobacco Advance Directives: Yes Advance Directives on File: Yes Advance Directives Date on File: 09/15/21 service: No Current occupational status: disabled Meds Allergies Allergy/AdvReac Type Severity Reaction Status Date / Time No Known Allergies Allergy Unknown NKDA Verified 10/18/21 09:25 Active Medications: Current Medications Acetaminophen (Acetaminophen 325 Mg Tablet) 650 mg PO Q8H PRN PRN Reason: Pain, Moderate (Pain Scale 4-6 Last Admin: 11/02/21 01:55 Dose: 650 mg Documented by: Amitriptyline HCl (Amitriptyline Hcl 50 Mg Tablet) 50 mg PO BEDTIME ALEM Last Admin: 11/01/21 21:34 Dose: 50 mg Documented by: Amlodipine Besylate (Amlodipine Besylate 10 Mg Tablet) 10 mg PO DAILY [facility]; Protocol Last Admin: 11/02/21 09:16 Dose: 10 mg Documented by: Atorvastatin Calcium (Atorvastatin Calcium 80 Mg Tablet) 80 mg PO BEDTIME [facility] Last Admin: 11/01/21 21:09 Dose: 80 mg Documented by: Insulin Glargine (Insulin Glargine,Hum.Rec.Anlog 100 Unit/Ml 10 Ml Vial) 15 unit SUBCUT BEDTIME [facility] Last Admin: 11/01/21 21:08 Dose: 15 unit Documented by: Isosorbide Mononitrate (Isosorbide Mononitrate 60 Mg Tab.Er.24h) 60 mg PO DAILY [facility]; Protocol Last Admin: 11/02/21 09:16 Dose: 60 mg Documented by: Metoprolol Succinate (Metoprolol Succinate Er 25 Mg Tab.Er.24h) 25 mg PO DAILY [facility]; Protocol Last Admin: 11/02/21 09:16 Dose: 25 mg Documented by: Pharmacy Consult (Consult Rx Perform Med Rec) 1 each MISCELLANE ONCE PRN PRN Reason: Consult order Potassium Chloride (Potassium Chloride Er 20 Meq Tab.Er.Prt) 40 meq PO BID [facility] Last Admin: 11/02/21 09:15 Dose: 40 meq Documented by: Sodium Chloride (0.9 % Sodium Chloride Flush 3 Ml Syringe) 3 ml IVFLUSH QSHIFT [facility] Last Admin: 11/02/21 09:14 Dose: Not Given Documented by: Tamsulosin HCl (Tamsulosin Hcl 0.4 Mg Capsule) 0.8 mg PO DAILY [facility] Last Admin: 11/02/21 09:15 Dose: 0.8 mg Documented by: Torsemide (Torsemide 20 Mg Tablet) 100 mg PO BIDWM [facility]; Protocol Last Admin: 11/02/21 09:14 Dose: 100 mg Documented by: Warfarin Sodium (Warfarin Sodium 5 Mg Tablet) 5 mg PO LU@1800 [facility] Warfarin Sodium (Warfarin Sodium 2.5 Mg Tablet) 2.5 mg PO MOTUWETHFRSA@1800 [facility] Home Medications Medication Instructions Recorded Confirmed Last Taken Type atorvastatin 80 mg tablet 1 tab PO BEDTIME 05/08/20 11/01/21 10/31/21 History metoprolol succinate 25 mg 1 tab PO DAILY 05/08/20 11/01/21 11/01/21 History tablet,extended release 24 hr isosorbide mononitrate 60 mg 1 tab PO DAILY 07/17/21 11/01/21 11/01/21 History tablet,extended release 24 hr torsemide 100 mg tablet 1 tab PO BIDWM 07/17/21 11/01/21 11/01/21 History insulin glargine 100 unit/mL (3 15 unit SUBCUT BEDTIME 10/06/21 11/01/21 10/31/21 History mL) subcutaneous pen (Lantus Solostar U-100 Insulin) pen needle, diabetic 31 gauge x #1200 ea 10/06/21 10/06/21 Unknown History 11/14 (BD Ultra-Fine Short Pen Needle) amlodipine 10 mg tablet (Norvasc) 10 mg PO DAILY 11/01/21 11/01/21 11/01/21 History potassium chloride 20 mEq 40 meq PO BID 11/01/21 11/01/21 11/01/21 History tablet,extended release warfarin 2.5 mg tablet 2.5 mg PO MOTUWETHFRSA@1800 11/01/21 11/01/21 10/31/21 History warfarin 2.5 mg tablet 5 mg PO LU@1800 11/01/21 11/01/21 10/30/21 History Physical Exam Vital Signs: Vital Signs: Last Vital Signs Temp 98 F 11/01/21 19:45 Pulse 65 11/02/21 07:09 Resp 18 11/02/21 07:09 BP 133/75 11/02/21 07:09 Pulse Ox 98 11/02/21 07:09 Oxygen Flow Rate 2 11/01/21 19:58 BMI result Body Mass Index 33.5 GENERAL APPEARANCE: in no acute distress, well developed, well nourished. NECK/THYROID: no carotid bruit, + jugular venous distention with prominent V wave. SKIN: no suspicious lesions, warm and dry. HEART: irregularly irregular rhythm, Parasternal and apical holosystolic murmurs. LUNGS: clear to auscultation bilaterally. ABDOMEN: normal, bowel sounds present, soft, nontender, nondistended. EXTREMITIES: +edema PERIPHERAL PULSES: equal. NEUROLOGIC: nonfocal, alert and oriented. Objective Labs and Meds Result diagrams: 11/02/21 08:28 11/02/21 08:28 Lab results: Laboratory Results - last 24 hr 11/01/21 11/01/21 11/01/21 08:58 11:54 13:49 WBC RBC Hgb Hct MCV MCH MCHC RDW Plt Count MPV Immature Gran % (Auto) Neut % (Auto) Lymph % (Auto) [place] % (Auto) Eos % (Auto) Baso % (Auto) Lymph # (Auto) [place] # (Auto) Eos # (Auto) Baso # (Auto) Abs Immat Gran (auto) Absolute Neuts (auto) Absolute Nucleated RBC Nucleated RBC % (auto) PT INR D-Dimer High Sensitivty 449 Sodium Potassium Chloride Carbon Dioxide Anion Gap BUN Creatinine Estim Creat Clear Calc Estimated GFR POC Glucose Fasting Glucose Calcium Total Bilirubin 1.1 H Direct Bilirubin 0.6 H AST 15 D ALT 8 Alkaline Phosphatase 171 H D Troponin I High Sens 8.1 B-Natriuretic Peptide Total Protein 7.2 Albumin 3.0 L 11/01/21 11/02/21 11/02/21 20:46 07:41 08:28 WBC RBC Hgb Hct MCV MCH MCHC RDW Plt Count MPV Immature Gran % (Auto) Neut % (Auto) Lymph % (Auto) [place] % (Auto) Eos % (Auto) Baso % (Auto) Lymph # (Auto) [place] # (Auto) Eos # (Auto) Baso # (Auto) Abs Immat Gran (auto) Absolute Neuts (auto) Absolute Nucleated RBC Nucleated RBC % (auto) PT 39.6 H INR 3.4 H D-Dimer High Sensitivty Sodium Potassium Chloride Carbon Dioxide Anion Gap BUN Creatinine Estim Creat Clear Calc Estimated GFR POC Glucose 224 H 215 H Fasting Glucose Calcium Total Bilirubin Direct Bilirubin AST ALT Alkaline Phosphatase Troponin I High Sens B-Natriuretic Peptide Total Protein Albumin 11/02/21 11/02/21 11/02/21 08:28 08:28 08:28 WBC 7.8 RBC 3.34 L Hgb 9.3 L Hct 30.4 L MCV 91.0 MCH 27.8 MCHC 30.6 L RDW 15.9 Plt Count 247 MPV 9.4 Immature Gran % (Auto) 0.3 Neut % (Auto) 77.2 H Lymph % (Auto) 8.3 L [place] % (Auto) 11.5 H Eos % (Auto) 2.3 Baso % (Auto) 0.4 Lymph # (Auto) 0.7 L [place] # (Auto) 0.9 Eos # (Auto) 0.2 Baso # (Auto) 0.0 Abs Immat Gran (auto) 0.02 Absolute Neuts (auto) 6.0 Absolute Nucleated RBC 0.000 Nucleated RBC % (auto) 0.0 PT INR D-Dimer High Sensitivty Sodium 140 Potassium 3.9 Chloride 107 Carbon Dioxide 25 Anion Gap 12 BUN 50 H Creatinine 2.00 H Estim Creat Clear Calc 49.9 Estimated GFR 34 POC Glucose Fasting Glucose 260 H D Calcium 8.5 Total Bilirubin 1.0 Direct Bilirubin AST 14 ALT 8 Alkaline Phosphatase 152 H Troponin I High Sens B-Natriuretic Peptide 482 H Total Protein 6.8 Albumin 2.7 L Imaging Radiologist's impression: Impressions Abdomen Ultrasound 11/01/21 11:39 FINDINGS/IMPRESSION: No ascites. Assessment and Plan (1) Acute on chronic diastolic HF (heart failure): Status: Acute Plan 61-year-old gentleman presenting for exacerbation of chronic heart failure. Significantly volume overloaded at this point. Change him to Lasix 80 mg IV t.i.d.. Closely monitor electrolytes. We can take her CardioMEMS reading on him tomorrow. Continue same medications otherwise. We will follow along with you. Does not need repeat echocardiography. Thank you for allowing me to participate in the care of your patient. Please feel free to contact me if you have any questions. Procedures Date of Service Date of Service: 11/02/21
--- NOTE | 2021-11-02 11:00 | CA_ITS ---
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 There is mildly increased left ventricular wall thickness. The left ventricular systolic function is moderately decreased. The visually estimated ejection fraction is between 30-35%. - There is a flattened septum in systole and diastole consistent with right ventricular pressure and volume overload. - E/E prime ratio is >15, consistent with elevated filling pressures. - Moderately increased right ventricular cavity size. There is mild to moderately decreased right ventricular systolic function. - The left atrium is severely dilated. - There is mild aortic valve stenosis - Significantly elevated right atrial pressure. Severe pulmonary hypertension is present. Findings Left Ventricle Normal left ventricular cavity size. There is mildly increased left ventricular wall thickness. The left ventricular systolic function is moderately decreased. The visually estimated ejection fraction is between 30 35%. There is moderate global hypokinesis. There is a flattened septum in systole and diastole consistent with right ventricular pressure and volume overload. Abnormal diastolic function is noted. Spectral Doppler is indicative of a restrictive filling pattern. E/E prime ratio is >15, consistent with elevated filling pressures. Right Ventricle Moderately increased right ventricular cavity size. There is mild to moderately decreased right ventricular systolic function. Atria The left atrium is severely dilated. Aortic Valve There is a normal trileaflet aortic valve. There is mild calcification of the aortic valve. There is mild aortic valve stenosis. There is no aortic valve regurgitation. Mitral Valve There is moderate mitral annular calcification. There is no mitral valve regurgitation. There is no mitral valve stenosis. Pulmonic Valve Normal pulmonic valve structure and function. There is trace pulmonic valve regurgitation. Tricuspid Valve Normal tricuspid valve structure. There is moderate to severe tricuspid valve regurgitation. Significantly elevated right atrial pressure. Severe pulmonary hypertension is present. Great Vessels All visible segments of the aorta are normal in size. The visualized portions of the pulmonary artery and branches are normal. Venous The inferior vena cava is dilated and does not collapse with inspiration. Pericardium/Pleural There is no evidence of pericardial effusion. Prior Study Comparison Changes noted compared to prior study. EF 30-35%, RV dysfunction and severe pulmonary hypertension. Measurements 2D Linear Measurements IVSd: 1.27 0.6-0.9/0.6-1.0 cm LVIDd: 5.75 3.9-5.3/4.2-5.9 cm LVIDd Index: 2.52 2.4-3.2/2.2-3.1 cm/m2 LVIDs: 4.24 2.0-3.6 cm LVPWd: 1.20 0.7-1.1 cm Ao Root: 3.50 2.1-3.5 cm LA Diam: 5.30 2.7-3.8/3.0-4.0 cm LAIDs Index: 2.32 1.5-2.3 cm/m2 LV Mass: 379.91 67-162/88-224 g LV Mass Index: 166.63 43-95/49-115 g/m2 LVOT Diam: 2.30 3.0+(-)1.3 cm 2D Systolic Function EF 4C: 50.10 >55% EF 2C: 42.30 >55% EF BiP: 49.00 >55% Mitral Valve MV Pk E: 1.34 MV Decel Time: 209.00 E'Lateral: 12.70 E'Medial: 6.74 E/E' Med: 19.90 E/E' Lat: 10.60 PHT: 61.00 MVA PHT: 3.61 Decel Morton: 6.39 Aortic Valve AoV Pk Tha: 2.31 AoV Mn Tha: 1.52 AoV VTI: 0.57 AoV Pk Grad: 21.00 Aov Mn Grad: 11.00 MARTHA Cont.VTI: 1.74 LVOT LVOT Pk Tha: 1.01 LVOT Mn Tha: 0.68 LVOT VTI: 0.24 LVOT Pk Grad: 4.00 LVOT Mn Grad: 2.00 LVOT Diam: 2.30 LVOT Area: 4.15 Diastolic Function MV Pk E: 1.34 E'Medial: 6.74 E/E' Med: 19.90 E' Laterial: 12.70 E/E' Lat: 10.60 Tricuspid Valve TR Pk Tha: 3.71 TR Pk Grad: 55.00 RA Press: 15.00 RVSP: 75.00 Great Vessels Aorta Ao Root-2D: 3.50 2.0-3.7 cm Ao Asc: 3.30 2.1-3.4 cm Pulmonary Valve PV Pk Tha: 0.99 Peak PV Grad: 4.00 Updated in Other Vendor System with Status of Final Coleman Burnett MD electronically signed on 11/02/2021 4:20:12 PM with status of Final
[2021-11-02 11:51] VITALS: BP 122/67; PULSE 63; RESP 12; O2SAT 100
--- NOTE | 2021-11-02 13:28 | PC.NURSE ---
Patient resting on stretcher with regular, even, and nonlabored respirations. Skin PWD. Patient reports feeling a bit better. Remains alert and oriented. Awaiting bed assignment.
--- NOTE | 2021-11-02 15:40 | P.PNIM_ITS ---
Subjective Subjective Date of Service: 11/02/21 Review of Systems Admits to intermittent chest pain Admits to shortness of breath with exertion Denies nausea vomiting diarrhea Denies fever chills Physical Exam Vital Signs: Vital Signs: Last Vital Signs Temp 98 F 11/01/21 19:45 Pulse 63 11/02/21 11:51 Resp 12 11/02/21 11:51 BP 122/67 11/02/21 11:51 Pulse Ox 100 11/02/21 11:51 Oxygen Flow Rate 2 11/01/21 19:58 BMI result Body Mass Index 33.5 Const: Other: Awake alert oriented x3 no acute distress Resp: Other: Clear to auscultation bilaterally no rales rhonchi wheezes Cardio: Other: No S4; positive S1-S2; no S3 murmurs rubs or gallops GI: Other: Soft nontender nondistended normoactive bowel sounds Extrem: Other: 20 changes consistent with chronic venous stasis disease. No edema bilaterally Objective Data Active Medications Acetaminophen (Acetaminophen 325 Mg Tablet) 650 mg PO Q8H PRN PRN Reason: Pain, Moderate (Pain Scale 4-6 Last Admin: 11/02/21 01:55 Dose: 650 mg Documented by: AUDREY Amitriptyline HCl (Amitriptyline Hcl 50 Mg Tablet) 50 mg PO BEDTIME [facility] Last Admin: 11/01/21 21:34 Dose: 50 mg Documented by: AUDREY Amlodipine Besylate (Amlodipine Besylate 10 Mg Tablet) 10 mg PO DAILY ALEM; Protocol Last Admin: 11/02/21 09:16 Dose: 10 mg Documented by: BRIAN Atorvastatin Calcium (Atorvastatin Calcium 80 Mg Tablet) 80 mg PO BEDTIME ALEM Last Admin: 11/01/21 21:09 Dose: 80 mg Documented by: AUDREY Furosemide (Furosemide 100 Mg/10 Ml Vial) 80 mg IVPUSH TID ALEM; Protocol Insulin Glargine (Insulin Glargine,Hum.Rec.Anlog 100 Unit/Ml 10 Ml Vial) 15 unit SUBCUT BEDTIME ALEM Last Admin: 11/01/21 21:08 Dose: 15 unit Documented by: AUDREY Isosorbide Mononitrate (Isosorbide Mononitrate 60 Mg Tab.Er.24h) 60 mg PO DAILY ALEM; Protocol Last Admin: 11/02/21 09:16 Dose: 60 mg Documented by: BRIAN Metoprolol Succinate (Metoprolol Succinate Er 25 Mg Tab.Er.24h) 25 mg PO DAILY [facility]; Protocol Last Admin: 11/02/21 09:16 Dose: 25 mg Documented by: BRIAN Pharmacy Consult (Consult Rx Perform Med Rec) 1 each MISCELLANE ONCE PRN PRN Reason: Consult order Potassium Chloride (Potassium Chloride Er 20 Meq Tab.Er.Prt) 40 meq PO BID [facility] Last Admin: 11/02/21 09:15 Dose: 40 meq Documented by: BRIAN Sodium Chloride (0.9 % Sodium Chloride Flush 3 Ml Syringe) 3 ml IVFLUSH QSHIFT [facility] Last Admin: 11/02/21 09:14 Dose: Not Given Documented by: BRIAN Non-Admin Reason: Med Not Available Tamsulosin HCl (Tamsulosin Hcl 0.4 Mg Capsule) 0.8 mg PO DAILY [facility] Last Admin: 11/02/21 09:15 Dose: 0.8 mg Documented by: BRIAN Warfarin Sodium (Warfarin Sodium 5 Mg Tablet) 5 mg PO LU@1800 [facility] Warfarin Sodium (Warfarin Sodium 2.5 Mg Tablet) 2.5 mg PO MOTUWETHFRSA@1800 [facility] Labs CBC & Chem 7: 11/02/21 08:28 11/02/21 08:28 Labs: Laboratory Results - last 24 hr 11/01/21 11/01/21 11/02/21 08:58 20:46 07:41 MCV MCH MCHC RDW Plt Count MPV Immature Gran % (Auto) Neut % (Auto) Lymph % (Auto) [place] % (Auto) Eos % (Auto) Baso % (Auto) Lymph # (Auto) [place] # (Auto) Eos # (Auto) Baso # (Auto) Abs Immat Gran (auto) Absolute Neuts (auto) Absolute Nucleated RBC Nucleated RBC % (auto) PT INR Anion Gap Creatinine 2.04 H Estim Creat Clear Calc Estimated GFR POC Glucose 224 H 215 H Fasting Glucose Calcium Total Bilirubin AST ALT Alkaline Phosphatase B-Natriuretic Peptide Total Protein Albumin 11/02/21 11/02/21 11/02/21 08:28 08:28 08:28 MCV 91.0 MCH 27.8 MCHC 30.6 L RDW 15.9 Plt Count 247 MPV 9.4 Immature Gran % (Auto) 0.3 Neut % (Auto) 77.2 H Lymph % (Auto) 8.3 L [place] % (Auto) 11.5 H Eos % (Auto) 2.3 Baso % (Auto) 0.4 Lymph # (Auto) 0.7 L [place] # (Auto) 0.9 Eos # (Auto) 0.2 Baso # (Auto) 0.0 Abs Immat Gran (auto) 0.02 Absolute Neuts (auto) 6.0 Absolute Nucleated RBC 0.000 Nucleated RBC % (auto) 0.0 PT 39.6 H INR 3.4 H Anion Gap 12 Creatinine 2.00 H Estim Creat Clear Calc 49.9 Estimated GFR 34 POC Glucose Fasting Glucose 260 H D Calcium 8.5 Total Bilirubin 1.0 AST 14 ALT 8 Alkaline Phosphatase 152 H B-Natriuretic Peptide Total Protein 6.8 Albumin 2.7 L 11/02/21 08:28 MCV MCH MCHC RDW Plt Count MPV Immature Gran % (Auto) Neut % (Auto) Lymph % (Auto) [place] % (Auto) Eos % (Auto) Baso % (Auto) Lymph # (Auto) [place] # (Auto) Eos # (Auto) Baso # (Auto) Abs Immat Gran (auto) Absolute Neuts (auto) Absolute Nucleated RBC Nucleated RBC % (auto) PT INR Anion Gap Creatinine Estim Creat Clear Calc Estimated GFR POC Glucose Fasting Glucose Calcium Total Bilirubin AST ALT Alkaline Phosphatase B-Natriuretic Peptide 482 H Total Protein Albumin Assessment and Plan (1) Acute on chronic diastolic HF (heart failure): Status: Acute (2) Chronic a-fib: Status: Acute Plan 61-year-old male with a history of atrial fibrillation chronic kidney disease acute on chronic combined heart failure presents with worsening shortness of breath what and what he describes as a 20 lb weight gain. In the emergency room chest x-ray failed to demonstrate any acute abnormalities; BNP was only slightly elevated from baseline. When attempted ambulation in ER his sats dropped into the 70s which prompted his admission further workup 1. Acute on chronic diastolic heart failure -IV lasix 80mgTID -2D echo in a.m. 2. Chronic atrial fibrillation -rate control adequate -continue outpatient therapies -Coumadin with goal INR 2-3 3. NIRAJ -creatinine at baseline -follow renals/divalents Full code Coumadin Will require 1-2 midnights going forward for further workup of shortness of breath and cardiology consult Quality Stroke Does the patient have a stroke diagnosis?: No VTE Prior VTE?: No VTE Risk Level:: Medical - moderate - high VTE Device Contraindication: Treatment Not Indicated VTE Drug Contraindication: N/A - Med Ordered
[2021-11-02 15:47] VITALS: BP 127/78; PULSE 63; RESP 18; TEMP 36.6; O2SAT 99
[2021-11-02] MEDS: Furosemide 100 MG/10 ML VIAL 80 MG IVPUSH ×2 (15:48→22:01)
[2021-11-02 20:31] VITALS: BP 117/69; PULSE 69; RESP 20; TEMP 36.8
[2021-11-02] MEDS: Insulin Glargine,Hum.rec.anlog 100 UNIT/ML 10 ML VIAL 15 UNIT SUBCUT (22:02)
[2021-11-02] MEDS: Atorvastatin Calcium 80 MG TABLET PO (22:02)
[2021-11-02] MEDS: Amitriptyline HCl 50 MG TABLET PO (22:02)
[2021-11-02 22:14] LABS: Glucose, Whole Blood 349 mg/dL (60-115)
[2021-11-02] MEDS: Insulin Lispro 100 UNIT/ML 3 ML VIAL SUBCUT (23:14)
[2021-11-03] VITALS (10 sets, daily range): BP systolic 108–138; BP diastolic 53–79; PULSE 65–71; RESP 11–18; TEMP 36.4–36.8; O2SAT 96–100; BMI 33.1
[2021-11-03 06:55] LABS: MANUAL DIFF FLAG NO
[2021-11-03 06:59] LABS: Basophils Absolute Auto 0.1 X10*3/uL (0.0-0.2); Basophils Percent Auto 0.7 % (0-2); Eosinophils Absolute Auto 0.3 X10*3/uL (0.0-0.4); Eosinophils Percent Auto 4.1 % (0-4); Hematocrit 28.9 % (42.0-52.0); Imm Gran Abs Auto 0.02 X10*3/uL (0.00-0.03); Imm Gran Pct Auto 0.3 % (0.0-0.4); Lymphocytes Absolute Auto 0.9 X10*3/uL (1.2-4.9); Lymphocytes Percent Auto 11.8 % (20-40); Mean Corpuscular HGB Conc 31.1 g/dl (31.0-36.0); Mean Corpuscular Hemoglobin 27.9 pg (27.0-33.0); Mean Corpuscular Volume 89.5 fL (80.0-98.0); Mean Platelet Volume 9.2 fL (9.4-12.4); Neutrophils Absolute Auto 5.2 x10*3/uL (2.0-8.3); Neutrophils Percent Auto 70.1 % (45-73); Platelet Count 255 X10*3/uL (160-400); Red Blood Count 3.23 X10*6/uL (4.60-5.80); Red Cell Distribution Width 15.9 % (11.0-16.0); White Blood Count 7.4 X10*3/uL (4.8-10.8)
[2021-11-03 07:07] LABS: INTERNATIONAL NORM RATIO 3.1 (0.9-1.1); Prothrombin Time 36.3 SEC (9.9-13.0)
[2021-11-03 07:12] LABS: Alanine Aminotransferase 8 U/L (0-40); Albumin Level 2.7 g/dL (3.5-5.0); Alkaline Phosphatase 148 U/L (39-117); Anion Gap 12 (12-20); Aspartate Amino Transferase 13 U/L (5-37); Bilirubin Total 1.1 mg/dL (0.0-1.0); Blood Urea Nitrogen 44 mg/dL (9-16); Calcium 8.6 mg/dL (8.4-10.2); Carbon Dioxide 25 mmol/L (22-29); Chloride 107 mmol/L (96-108); Creatinine Clr Calc Pharmacy 57.6; Estimated Glomerular Filt Rate 41; Glucose Fasting 106 mg/dL (60-99); Potassium 4.1 mmol/L (3.3-5.1); Sodium 140 mmol/L (135-145); Total Protein 6.5 g/dL (6.5-8.0)
[2021-11-03 07:39] LABS: Glucose, Whole Blood 114 mg/dL (60-115)
[2021-11-03] MEDS: Tamsulosin HCL 0.4 MG CAPSULE 0.8 MG PO (08:16)
[2021-11-03] MEDS: 0.9 % Sodium Chloride Flush 3 ML SYRINGE IVFLUSH ×3 (08:16→20:33)
[2021-11-03] MEDS: Metoprolol Succinate ER 25 MG TAB.ER.24H PO (08:17)
[2021-11-03] MEDS: Isosorbide Mononitrate 60 MG TAB.ER.24H PO (08:17)
[2021-11-03] MEDS: amLODIPine Besylate 10 MG TABLET PO (08:17)
[2021-11-03] MEDS: Potassium Chloride ER 20 MEQ TAB.ER.PRT 40 MEQ PO ×2 (08:17→20:33)
[2021-11-03] MEDS: Furosemide 100 MG/10 ML VIAL 80 MG IVPUSH ×3 (08:18→20:33)
--- NOTE | 2021-11-03 09:58 | PC.NURSE ---
Pt resting comfortably in bed. Tolerated diet this morning. Voiding in urinal
--- NOTE | 2021-11-03 11:28 | PC.NURSE ---
Dr Haile here to see pt. Pt asleep, comfortable without resp distress. MD will come back to see pt when awake
[2021-11-03 12:57] LABS: Glucose, Whole Blood 164 mg/dL (60-115)
[2021-11-03] MEDS: Insulin Lispro 100 UNIT/ML 3 ML VIAL SUBCUT ×3 (13:05→20:32)
--- NOTE | 2021-11-03 14:22 | HO.PM.IMPN ---
Subjective Subjective Date of Service: 11/03/21 Interval History: Good response to IV diuresis. Breathing improved Review of Systems Denies chest pain Admits to shortness of breath with exertion Denies nausea vomiting diarrhea Denies fever chills Physical Exam Vital Signs: Vital Signs: Last Vital Signs Temp 98.3 F 11/02/21 20:31 Pulse 65 11/03/21 13:42 Resp 11 L 11/03/21 13:42 BP 121/77 11/03/21 13:42 Pulse Ox 98 11/03/21 13:42 Oxygen Flow Rate 2 11/01/21 19:58 BMI result Body Mass Index 33.5 Const: Other: Awake alert oriented x3 no acute distress Resp: Other: Clear to auscultation bilaterally no rales rhonchi wheezes Cardio: Other: No S4; positive S1-S2; no S3 murmurs rubs or gallops GI: Other: Soft nontender nondistended normoactive bowel sounds Extrem: Other: 20 changes consistent with chronic venous stasis disease. No edema bilaterally Objective Data Active Medications Acetaminophen (Acetaminophen 325 Mg Tablet) 650 mg PO Q8H PRN PRN Reason: Pain, Moderate (Pain Scale 4-6 Last Admin: 11/02/21 01:55 Dose: 650 mg Documented by: AUDREY Amitriptyline HCl (Amitriptyline Hcl 50 Mg Tablet) 50 mg PO BEDTIME [facility] Last Admin: 11/02/21 22:02 Dose: 50 mg Documented by: HONEY Amlodipine Besylate (Amlodipine Besylate 10 Mg Tablet) 10 mg PO DAILY [facility]; Protocol Last Admin: 11/03/21 08:17 Dose: 10 mg Documented by: GALEN Atorvastatin Calcium (Atorvastatin Calcium 80 Mg Tablet) 80 mg PO BEDTIME [facility] Last Admin: 11/02/21 22:02 Dose: 80 mg Documented by: HONEY Dextrose (Dextrose 50 % 25 Gm/50 Ml Syringe) 25 gm IVPUSH Q15M PRN; Protocol PRN Reason: per Hypoglycemia Standing Ord. Furosemide (Furosemide 100 Mg/10 Ml Vial) 80 mg IVPUSH TID [facility]; Protocol Last Admin: 11/03/21 08:18 Dose: 80 mg Documented by: GALEN Glucose (Glucose Gel 15 Gm Gel..Gram.) 15 gm PO Q15M PRN; Protocol PRN Reason: per Hypoglycemia Standing Ord. Insulin Glargine (Insulin Glargine,Hum.Rec.Anlog 100 Unit/Ml 10 Ml Vial) 15 unit SUBCUT BEDTIME [facility] Last Admin: 11/02/21 22:02 Dose: 15 unit Documented by: HONEY Insulin Human Lispro (Insulin Lispro 100 Unit/Ml 3 Ml Vial) 0 unit SUBCUT QIDACHS [facility]; Protocol Last Admin: 11/03/21 13:05 Dose: 2 unit Documented by: GAELN Isosorbide Mononitrate (Isosorbide Mononitrate 60 Mg Tab.Er.24h) 60 mg PO DAILY [facility]; Protocol Last Admin: 11/03/21 08:17 Dose: 60 mg Documented by: GALEN Metoprolol Succinate (Metoprolol Succinate Er 25 Mg Tab.Er.24h) 25 mg PO DAILY [facility]; Protocol Last Admin: 11/03/21 08:17 Dose: 25 mg Documented by: GALEN Pharmacy Consult (Consult Rx Perform Med Rec) 1 each MISCELLANE ONCE PRN PRN Reason: Consult order Potassium Chloride (Potassium Chloride Er 20 Meq Tab.Er.Prt) 40 meq PO BID [facility] Last Admin: 11/03/21 08:17 Dose: 40 meq Documented by: GALEN Sodium Chloride (0.9 % Sodium Chloride Flush 3 Ml Syringe) 3 ml IVFLUSH QSHIFT [facility] Last Admin: 11/03/21 08:16 Dose: 3 ml Documented by: GALEN Tamsulosin HCl (Tamsulosin Hcl 0.4 Mg Capsule) 0.8 mg PO DAILY [facility] Last Admin: 11/03/21 08:16 Dose: 0.8 mg Documented by: GALEN Warfarin Sodium (Warfarin Sodium 5 Mg Tablet) 5 mg PO LU@1800 [facility] Warfarin Sodium (Warfarin Sodium 2.5 Mg Tablet) 2.5 mg PO MOTUWETHFRSA@1800 [facility] Labs CBC & Chem 7: 11/03/21 06:44 11/03/21 06:44 Labs: Laboratory Results - last 24 hr 11/02/21 11/03/21 11/03/21 22:04 06:44 06:44 MCV 89.5 MCH 27.9 MCHC 31.1 RDW 15.9 Plt Count 255 MPV 9.2 L Immature Gran % (Auto) 0.3 Neut % (Auto) 70.1 Lymph % (Auto) 11.8 L [place] % (Auto) 13.0 H Eos % (Auto) 4.1 H Baso % (Auto) 0.7 Lymph # (Auto) 0.9 L [place] # (Auto) 1.0 Eos # (Auto) 0.3 Baso # (Auto) 0.1 Abs Immat Gran (auto) 0.02 Absolute Neuts (auto) 5.2 Absolute Nucleated RBC 0.000 Nucleated RBC % (auto) 0.0 PT 36.3 H INR 3.1 H Anion Gap Estim Creat Clear Calc Estimated GFR POC Glucose 349 H Fasting Glucose Calcium Total Bilirubin AST ALT Alkaline Phosphatase Total Protein Albumin 11/03/21 11/03/21 11/03/21 06:44 07:32 12:51 MCV MCH MCHC RDW Plt Count MPV Immature Gran % (Auto) Neut % (Auto) Lymph % (Auto) [place] % (Auto) Eos % (Auto) Baso % (Auto) Lymph # (Auto) [place] # (Auto) Eos # (Auto) Baso # (Auto) Abs Immat Gran (auto) Absolute Neuts (auto) Absolute Nucleated RBC Nucleated RBC % (auto) PT INR Anion Gap 12 Estim Creat Clear Calc 57.6 Estimated GFR 41 POC Glucose 114 164 H Fasting Glucose 106 H D Calcium 8.6 Total Bilirubin 1.1 H AST 13 ALT 8 Alkaline Phosphatase 148 H Total Protein 6.5 Albumin 2.7 L Assessment and Plan (1) Acute on chronic diastolic HF (heart failure): Status: Acute (2) Chronic a-fib: Status: Acute (3) NIRAJ (acute kidney injury): Status: Acute Plan 61-year-old male with a history of atrial fibrillation chronic kidney disease acute on chronic combined heart failure presents with worsening shortness of breath what and what he describes as a 20 lb weight gain. In the emergency room chest x-ray failed to demonstrate any acute abnormalities; BNP was only slightly elevated from baseline. When attempted ambulation in ER his sats dropped into the 70s which prompted his admission further workup 1. Acute on chronic diastolic heart failure -IV lasix 80mgTID... Approximately 4 L negative -2D echo in a.m. 2. Chronic atrial fibrillation -rate control adequate -continue outpatient therapies -Coumadin with goal INR 2-3 3. NIRAJ -creatinine at baseline -follow renals/divalents Full code Coumadin Will require hospitalization for IV Lasix to treat shortness of breath and cardiology consult Quality Stroke Does the patient have a stroke diagnosis?: No VTE Prior VTE?: No VTE Risk Level:: Medical - moderate - high VTE Device Contraindication: Treatment Not Indicated VTE Drug Contraindication: N/A - Med Ordered
--- NOTE | 2021-11-03 16:25 | P.PNCA_ITS ---
Subjective Subjective Date of Service: 11/03/21 Principal diagnosis: CHF, atrial fibrillation Interval history: Vineet has been diuresing well. Clinically appears to be more comfortable. While I was trying to see me was in deep sleep and did not respond to much co mplaints. Hemodynamically stable. Has diuresed well since admission. No new symptoms to report Review of Systems Review of Systems Yes Unobtainable due to mental status Physical Exam Vital Signs: Last Vital Signs Temp 97.7 F 11/03/21 16:01 Pulse 70 11/03/21 16:01 Resp 16 11/03/21 16:01 BP 108/72 11/03/21 16:01 Pulse Ox 99 11/03/21 16:01 Oxygen Flow Rate 2 11/01/21 19:58 BMI result Body Mass Index 33.5 Const General: cooperative, comfortable, no acute distress and other (Sleeping) Nutritional Appearance: obese Orientation/consciousness: patient oriented x3 Neck Neck: Yes trachea midline, Yes supple and Yes JVD Resp Effort & Inspection: normal respiratory effort Auscultation: clear to auscultation bilaterally and diminished lung sounds Cardio Jugular venous distension: JVD Rate: regular rate Rhythm: abnormal rhythm irregularly irregular Heart sounds: S1 normal heart sound present, S2 normal heart sound present, no click, no gallops, no murmurs and no rubs GI Inspection: Yes obesity Auscultation: normal bowel sounds Skin General skin exam: no rashes or lesions noted Neuro General: patient oriented x3 and no focal motor deficits Extrem General: No clubbing, No cyanosis and Yes edema Objective Labs and Meds Result diagrams: 11/03/21 06:44 11/03/21 06:44 Lab results: Laboratory Results - last 24 hr 11/02/21 11/03/21 11/03/21 22:04 06:44 06:44 WBC 7.4 RBC 3.23 L Hgb 9.0 L Hct 28.9 L MCV 89.5 MCH 27.9 MCHC 31.1 RDW 15.9 Plt Count 255 MPV 9.2 L Immature Gran % (Auto) 0.3 Neut % (Auto) 70.1 Lymph % (Auto) 11.8 L [place] % (Auto) 13.0 H Eos % (Auto) 4.1 H Baso % (Auto) 0.7 Lymph # (Auto) 0.9 L [place] # (Auto) 1.0 Eos # (Auto) 0.3 Baso # (Auto) 0.1 Abs Immat Gran (auto) 0.02 Absolute Neuts (auto) 5.2 Absolute Nucleated RBC 0.000 Nucleated RBC % (auto) 0.0 PT 36.3 H INR 3.1 H Sodium Potassium Chloride Carbon Dioxide Anion Gap BUN Creatinine Estim Creat Clear Calc Estimated GFR POC Glucose 349 H Fasting Glucose Calcium Total Bilirubin AST ALT Alkaline Phosphatase Total Protein Albumin 11/03/21 11/03/21 11/03/21 06:44 07:32 12:51 WBC RBC Hgb Hct MCV MCH MCHC RDW Plt Count MPV Immature Gran % (Auto) Neut % (Auto) Lymph % (Auto) [place] % (Auto) Eos % (Auto) Baso % (Auto) Lymph # (Auto) [place] # (Auto) Eos # (Auto) Baso # (Auto) Abs Immat Gran (auto) Absolute Neuts (auto) Absolute Nucleated RBC Nucleated RBC % (auto) PT INR Sodium 140 Potassium 4.1 Chloride 107 Carbon Dioxide 25 Anion Gap 12 BUN 44 H Creatinine 1.73 H Estim Creat Clear Calc 57.6 Estimated GFR 41 POC Glucose 114 164 H Fasting Glucose 106 H D Calcium 8.6 Total Bilirubin 1.1 H AST 13 ALT 8 Alkaline Phosphatase 148 H Total Protein 6.5 Albumin 2.7 L Progress Note: A&P Assessment and plan (1) Acute heart failure: Status: Acute Assessment and Plan: Acute heart failure in middle-aged man with prior known cardiomyopathy with LVEF of around 30%, nonischemic. Is followed by outside Cardiology. Does not have a defibrillator placed for primary prevention. Currently not on appropriate heart failure medications. He is on metoprolol but low-dose. This can be increased to 25 mg b.i.d.. Also not on renin angiotensin receptor blockers probably due to kidney dysfunction. However he should be on our arterial vaso dilator if these are contraindicated like hydralazine 25 mg b.i.d.. Amlodipine can be used for blood pressure control after hydralazine and isosorbide have been maximized and patient cannot be on angiotensin receptor blockers. Continue IV diuresis. Strict intake and output chart needs to be pursued. Continue to trend renal function and electrolytes and replace as needed. Repeat BNP tomorrow. Clinically appears to be doing better compared to on admission. (2) Chronic a-fib: Status: Acute Assessment and Plan: Chronic atrial fibrillation, currently rate controlled. Continue current rate control strategy with metoprolol. Continue full oral anticoagulation warfarin. Target INR between 2 and 3. Will follow with you Time Spent With Patient Time: Total time spent is greater than 50% in coordination of care (as documented) at patient's floor/unit and/or counseling patient: Progress Note: Quality Stroke Does the patient have a stroke diagnosis?: No Procedures Date of Service Date of Service: 11/03/21
[2021-11-03 18:20] LABS: Glucose, Whole Blood 214 mg/dL (60-115)
[2021-11-03 20:28] LABS: Glucose, Whole Blood 248 mg/dL (60-115)
[2021-11-03] MEDS: Atorvastatin Calcium 80 MG TABLET PO (20:33)
[2021-11-03] MEDS: Amitriptyline HCl 50 MG TABLET PO (20:33)
[2021-11-03] MEDS: Insulin Glargine,Hum.rec.anlog 100 UNIT/ML 10 ML VIAL 15 UNIT SUBCUT (20:33)
[2021-11-03 21:27] LABS: Glucose, Whole Blood 286 mg/dL (60-115)
[2021-11-04] VITALS (8 sets, daily range): BP systolic 108–135; BP diastolic 57–78; PULSE 59–78; RESP 14–20; TEMP 36.2–36.9; O2SAT 93–100
[2021-11-04 07:09] LABS: MANUAL DIFF FLAG NO
[2021-11-04 07:12] LABS: Basophils Absolute Auto 0.1 X10*3/uL (0.0-0.2); Basophils Percent Auto 0.8 % (0-2); Eosinophils Absolute Auto 0.3 X10*3/uL (0.0-0.4); Eosinophils Percent Auto 3.9 % (0-4); Hematocrit 29.2 % (42.0-52.0); Hemoglobin 9.1 g/dl (14.0-18.0); Imm Gran Abs Auto 0.02 X10*3/uL (0.00-0.03); Imm Gran Pct Auto 0.3 % (0.0-0.4); Lymphocytes Absolute Auto 0.9 X10*3/uL (1.2-4.9); Lymphocytes Percent Auto 11.8 % (20-40); Mean Corpuscular HGB Conc 31.2 g/dl (31.0-36.0); Mean Corpuscular Hemoglobin 28.5 pg (27.0-33.0); Mean Corpuscular Volume 91.5 fL (80.0-98.0); Mean Platelet Volume 9.6 fL (9.4-12.4); Monocytes Absolute Auto 0.9 X10*3/uL (0.1-1.2); Monocytes Percent Auto 11.7 % (2-11); Neutrophils Absolute Auto 5.4 x10*3/uL (2.0-8.3); Neutrophils Percent Auto 71.5 % (45-73); Platelet Count 264 X10*3/uL (160-400); Red Blood Count 3.19 X10*6/uL (4.60-5.80); Red Cell Distribution Width 15.7 % (11.0-16.0); White Blood Count 7.5 X10*3/uL (4.8-10.8)
[2021-11-04 07:21] LABS: INTERNATIONAL NORM RATIO 2.4 (0.9-1.1); Prothrombin Time 28.2 SEC (9.9-13.0)
[2021-11-04 07:29] LABS: Glucose, Whole Blood 184 mg/dL (60-115)
[2021-11-04 07:38] LABS: Alanine Aminotransferase 8 U/L (0-40); Albumin Level 2.6 g/dL (3.5-5.0); Alkaline Phosphatase 160 U/L (39-117); Anion Gap 11 (12-20); Aspartate Amino Transferase 13 U/L (5-37); Blood Urea Nitrogen 46 mg/dL (9-16); Calcium 8.3 mg/dL (8.4-10.2); Carbon Dioxide 28 mmol/L (22-29); Chloride 104 mmol/L (96-108); Creatinine Clr Calc Pharmacy 50.6; Estimated Glomerular Filt Rate 35; Glucose Fasting 189 mg/dL (60-99); Potassium 4.7 mmol/L (3.3-5.1); Sodium 138 mmol/L (135-145); Total Protein 6.5 g/dL (6.5-8.0)
--- NOTE | 2021-11-04 08:53 | MHC.CM.PN ---
Male 61 DX ADCHF Patient continues to require IV diurresis. DP Home with resumption of [employer] services. He will arrange transportation at discharge.
[2021-11-04] MEDS: Isosorbide Mononitrate 60 MG TAB.ER.24H PO (08:59)
[2021-11-04] MEDS: Tamsulosin HCL 0.4 MG CAPSULE 0.8 MG PO (08:59)
[2021-11-04] MEDS: Potassium Chloride ER 20 MEQ TAB.ER.PRT 40 MEQ PO ×2 (08:59→21:07)
[2021-11-04] MEDS: Metoprolol Tartrate 25 MG TABLET PO ×2 (08:59→21:07)
[2021-11-04] MEDS: Furosemide 100 MG/10 ML VIAL 80 MG IVPUSH ×3 (09:00→21:06)
[2021-11-04] MEDS: Insulin Lispro 100 UNIT/ML 3 ML VIAL SUBCUT ×4 (09:01→21:07)
[2021-11-04] MEDS: 0.9 % Sodium Chloride Flush 3 ML SYRINGE IVFLUSH ×3 (09:01→21:08)
--- NOTE | 2021-11-04 09:45 | PM.PNCARD ---
Subjective Subjective Date of Service: 11/04/21 Principal diagnosis: CHF, atrial fibrillation Interval history: Patient is feeling better. Since admission he has diuresed about 6 L. He says his breathing is much improved. Leg edema is improved and his abdominal distension also has improved. He said prior to coming to the hospital he had missed measuring his CardioMEMS readings because of not having Internet. He has been taking torsemide 100 mg b.i.d. at home. Review of Systems Constitutional: Reports no additional constitutional complaints Cardiovascular: Reports no additional cardiovascular complaints Gastrointestinal: Reports no additional gastrointestinal complaints Genitourinary: Reports no additional male genitourinary complaints Musculoskeletal: Reports no additional musculoskeletal complaints Skin/Breast: Reports system reviewed and no additional complaints, except as docu Reports system reviewed and no additional complaints, except as documented Psychiatric: Reports no additional psychiatric complaints Endocrine: Reports no additional endocrine complaints Hematologic/Lymphatic: Reports no additional hematologic/lymphatic complaints Allergic/Immunologic: Reports no additional allergic/immunologic complaints Physical Exam Vital Signs: Last Vital Signs Temp 97.8 F 11/04/21 07:23 Pulse 61 11/04/21 07:23 Resp 14 11/04/21 07:23 BP 115/64 11/04/21 07:23 Pulse Ox 95 11/04/21 07:23 Oxygen Flow Rate 2 11/01/21 19:58 BMI result Body Mass Index 33.1 Const General: cooperative, comfortable, no acute distress, alert and awake Nutritional Appearance: obese Orientation/consciousness: patient oriented x3 Limitations: no limitations Neck Neck: Yes trachea midline and Yes supple Resp Effort & Inspection: normal respiratory effort Auscultation: clear to auscultation bilaterally Cardio Palpation: abnormal PMI displaced PMI Rate: regular rate Rhythm: abnormal rhythm irregularly irregular Heart sounds: S1 normal heart sound present, S2 normal heart sound present, no click, no gallops and Murmur heart sound present systolic GI Inspection: Yes distended Auscultation: normal bowel sounds Skin General skin exam: no rashes or lesions noted Neuro General: patient oriented x3 and no focal motor deficits Extrem General: No clubbing, No cyanosis and Yes pedal edema Objective Labs and Meds Result diagrams: 11/04/21 06:34 11/04/21 06:34 Lab results: Laboratory Results - last 24 hr 05/05/22 05/05/22 05/05/22 12:51 18:16 20:23 WBC RBC Hgb Hct MCV MCH MCHC RDW Plt Count MPV Immature Gran % (Auto) Neut % (Auto) Lymph % (Auto) [place] % (Auto) Eos % (Auto) Baso % (Auto) Lymph # (Auto) [place] # (Auto) Eos # (Auto) Baso # (Auto) Abs Immat Gran (auto) Absolute Neuts (auto) Absolute Nucleated RBC Nucleated RBC % (auto) PT INR Sodium Potassium Chloride Carbon Dioxide Anion Gap BUN Creatinine Estim Creat Clear Calc Estimated GFR POC Glucose 164 H 214 H 248 H Fasting Glucose Calcium Total Bilirubin AST ALT Alkaline Phosphatase Total Protein Albumin 11/03/21 11/04/21 11/04/21 21:23 06:34 06:34 WBC 7.5 RBC 3.19 L Hgb 9.1 L Hct 29.2 L MCV 91.5 MCH 28.5 MCHC 31.2 RDW 15.7 Plt Count 264 MPV 9.6 Immature Gran % (Auto) 0.3 Neut % (Auto) 71.5 Lymph % (Auto) 11.8 L [place] % (Auto) 11.7 H Eos % (Auto) 3.9 Baso % (Auto) 0.8 Lymph # (Auto) 0.9 L [place] # (Auto) 0.9 Eos # (Auto) 0.3 Baso # (Auto) 0.1 Abs Immat Gran (auto) 0.02 Absolute Neuts (auto) 5.4 Absolute Nucleated RBC 0.000 Nucleated RBC % (auto) 0.0 PT 28.2 H INR 2.4 H Sodium Potassium Chloride Carbon Dioxide Anion Gap BUN Creatinine Estim Creat Clear Calc Estimated GFR POC Glucose 286 H Fasting Glucose Calcium Total Bilirubin AST ALT Alkaline Phosphatase Total Protein Albumin 11/04/21 11/04/21 06:34 07:25 WBC RBC Hgb Hct MCV MCH MCHC RDW Plt Count MPV Immature Gran % (Auto) Neut % (Auto) Lymph % (Auto) [place] % (Auto) Eos % (Auto) Baso % (Auto) Lymph # (Auto) [place] # (Auto) Eos # (Auto) Baso # (Auto) Abs Immat Gran (auto) Absolute Neuts (auto) Absolute Nucleated RBC Nucleated RBC % (auto) PT INR Sodium 138 Potassium 4.7 Chloride 104 Carbon Dioxide 28 Anion Gap 11 L BUN 46 H Creatinine 1.96 H Estim Creat Clear Calc 50.6 Estimated GFR 35 POC Glucose 184 H Fasting Glucose 189 H D Calcium 8.3 L Total Bilirubin 1.0 AST 13 ALT 8 Alkaline Phosphatase 160 H Total Protein 6.5 Albumin 2.6 L Progress Note: A&P Assessment and plan (1) Acute heart failure: Status: Acute Assessment and Plan: Patient is doing much better and has diuresed about 6 L since his admission and feeling better with much improved breathing. Advised to ambulate. Hopefully we can taper is oxygen therapy. Will check a CardioMEMS read today to see what his numbers are and then switch to oral therapy if there are within normal limits or continue with IV diuresis they are elevated. Clinically looks more euvolemic. His renal function stable. Continue to monitor electrolytes and replace potassium as needed. Continue rate control. Overall prognosis is guarded. He understands. Would consider adding vasodilators either Diovan if approved by renal or hydralazine. Continue metoprolol as well as isosorbide. He is already on very high doses of torsemide as outpatient. He may need additional therapy with metolazone as outpatient many has abnormal CardioMEMS reading to help with his diuresis. Importance of daily monitoring of his CardioMEMS reading as well as daily weights is very important was discussed with him to avoid hospitalizations. (2) Chronic a-fib: Status: Acute Assessment and Plan: Chronic atrial fibrillation, currently rate controlled. Continue rate control strategy. Continue full oral anticoagulation, currently on warfarin therapy. Target INR between 2 and 3. Will follow up with you Time Spent With Patient Time: Total time spent is greater than 50% in coordination of care (as documented) at patient's floor/unit and/or counseling patient: Progress Note: Quality Stroke Does the patient have a stroke diagnosis?: No Procedures Date of Service Date of Service: 11/04/21
[2021-11-04 12:00] LABS: Glucose, Whole Blood 196 mg/dL (60-115)
--- NOTE | 2021-11-04 15:41 | HO.PM.IMPN ---
Subjective Subjective Date of Service: 11/04/21 Interval History: Good response to IV diuresis. Breathing improved Review of Systems Denies chest pain Admits to shortness of breath with exertion Denies nausea vomiting diarrhea Denies fever chills Physical Exam Vital Signs: Vital Signs: Last Vital Signs Temp 97.8 F 11/04/21 15:08 Pulse 70 11/04/21 15:08 Resp 14 11/04/21 15:08 BP 128/71 11/04/21 15:08 Pulse Ox 97 11/04/21 15:08 Oxygen Flow Rate 2 11/01/21 19:58 BMI result Body Mass Index 33.1 Const: Other: Awake alert oriented x3 no acute distress Resp: Other: Clear to auscultation bilaterally no rales rhonchi wheezes Cardio: Other: No S4; positive S1-S2; no S3 murmurs rubs or gallops GI: Other: Soft nontender nondistended normoactive bowel sounds Extrem: Other: 20 changes consistent with chronic venous stasis disease. No edema bilaterally Objective Data Active Medications Acetaminophen (Acetaminophen 325 Mg Tablet) 650 mg PO Q8H PRN PRN Reason: Pain, Moderate (Pain Scale 4-6 Last Admin: 11/02/21 01:55 Dose: 650 mg Documented by: AUDREY Amitriptyline HCl (Amitriptyline Hcl 50 Mg Tablet) 50 mg PO BEDTIME [facility] Last Admin: 11/03/21 20:33 Dose: 50 mg Documented by: ANA Atorvastatin Calcium (Atorvastatin Calcium 80 Mg Tablet) 80 mg PO BEDTIME [facility] Last Admin: 11/03/21 20:33 Dose: 80 mg Documented by: ANA Dextrose (Dextrose 50 % 25 Gm/50 Ml Syringe) 25 gm IVPUSH Q15M PRN; Protocol PRN Reason: per Hypoglycemia Standing Ord. Furosemide (Furosemide 100 Mg/10 Ml Vial) 80 mg IVPUSH TID [facility]; Protocol Last Admin: 11/04/21 09:00 Dose: 80 mg Documented by: SHARAD Glucose (Glucose Gel 15 Gm Gel..Gram.) 15 gm PO Q15M PRN; Protocol PRN Reason: per Hypoglycemia Standing Ord. Insulin Glargine (Insulin Glargine,Hum.Rec.Anlog 100 Unit/Ml 10 Ml Vial) 15 unit SUBCUT BEDTIME [facility] Last Admin: 11/03/21 20:33 Dose: 15 unit Documented by: ANA Insulin Human Lispro (Insulin Lispro 100 Unit/Ml 3 Ml Vial) 0 unit SUBCUT QIDACHS [facility]; Protocol Last Admin: 11/04/21 12:20 Dose: 2 unit Documented by: SHARAD Isosorbide Mononitrate (Isosorbide Mononitrate 60 Mg Tab.Er.24h) 60 mg PO DAILY [facility] [place]; Protocol Last Admin: 11/04/21 08:59 Dose: 60 mg Documented by: SHARAD Metoprolol Tartrate (Metoprolol Tartrate 25 Mg Tablet) 25 mg PO BID [facility] [place]; Protocol Last Admin: 11/04/21 08:59 Dose: 25 mg Documented by: SHARAD Pharmacy Consult (Consult Rx Perform Med Rec) 1 each MISCELLANE ONCE PRN PRN Reason: Consult order Potassium Chloride (Potassium Chloride Er 20 Meq Tab.Er.Prt) 40 meq PO BID [facility] [place] Last Admin: 11/04/21 08:59 Dose: 40 meq Documented by: SHARAD Sodium Chloride (0.9 % Sodium Chloride Flush 3 Ml Syringe) 3 ml IVFLUSH QSHIFT [facility] [place] Last Admin: 11/04/21 09:01 Dose: 3 ml Documented by: SHARAD Tamsulosin HCl (Tamsulosin Hcl 0.4 Mg Capsule) 0.8 mg PO DAILY [facility] [place] Last Admin: 11/04/21 08:59 Dose: 0.8 mg Documented by: SHARAD Warfarin Sodium (Warfarin Sodium 5 Mg Tablet) 5 mg PO LU@1800 [facility] [place] Warfarin Sodium (Warfarin Sodium 2.5 Mg Tablet) 2.5 mg PO MOTUWETHFRSA@1800 [facility] [place] Labs CBC & Chem 7: 11/04/21 06:34 11/04/21 06:34 Labs: Laboratory Results - last 24 hr 11/03/21 11/03/21 11/03/21 18:16 20:23 21:23 MCV MCH MCHC RDW Plt Count MPV Immature Gran % (Auto) Neut % (Auto) Lymph % (Auto) [place] % (Auto) Eos % (Auto) Baso % (Auto) Lymph # (Auto) [place] # (Auto) Eos # (Auto) Baso # (Auto) Abs Immat Gran (auto) Absolute Neuts (auto) Absolute Nucleated RBC Nucleated RBC % (auto) PT INR Anion Gap Estim Creat Clear Calc Estimated GFR POC Glucose 214 H 248 H 286 H Fasting Glucose Calcium Total Bilirubin AST ALT Alkaline Phosphatase Total Protein Albumin 11/04/21 11/04/21 11/04/21 06:34 06:34 06:34 MCV 91.5 MCH 28.5 MCHC 31.2 RDW 15.7 Plt Count 264 MPV 9.6 Immature Gran % (Auto) 0.3 Neut % (Auto) 71.5 Lymph % (Auto) 11.8 L [place] % (Auto) 11.7 H Eos % (Auto) 3.9 Baso % (Auto) 0.8 Lymph # (Auto) 0.9 L [place] # (Auto) 0.9 Eos # (Auto) 0.3 Baso # (Auto) 0.1 Abs Immat Gran (auto) 0.02 Absolute Neuts (auto) 5.4 Absolute Nucleated RBC 0.000 Nucleated RBC % (auto) 0.0 PT 28.2 H INR 2.4 H Anion Gap 11 L Estim Creat Clear Calc 50.6 Estimated GFR 35 POC Glucose Fasting Glucose 189 H D Calcium 8.3 L Total Bilirubin 1.0 AST 13 ALT 8 Alkaline Phosphatase 160 H Total Protein 6.5 Albumin 2.6 L 11/04/21 11/04/21 07:25 11:17 MCV MCH MCHC RDW Plt Count MPV Immature Gran % (Auto) Neut % (Auto) Lymph % (Auto) [place] % (Auto) Eos % (Auto) Baso % (Auto) Lymph # (Auto) [place] # (Auto) Eos # (Auto) Baso # (Auto) Abs Immat Gran (auto) Absolute Neuts (auto) Absolute Nucleated RBC Nucleated RBC % (auto) PT INR Anion Gap Estim Creat Clear Calc Estimated GFR POC Glucose 184 H 196 H Fasting Glucose Calcium Total Bilirubin AST ALT Alkaline Phosphatase Total Protein Albumin Assessment and Plan (1) Acute on chronic diastolic HF (heart failure): Status: Acute (2) Chronic a-fib: Status: Acute (3) NIRAJ (acute kidney injury): Status: Acute Plan 61-year-old male with a history of atrial fibrillation chronic kidney disease acute on chronic combined heart failure presents with worsening shortness of breath what and what he describes as a 20 lb weight gain. In the emergency room chest x-ray failed to demonstrate any acute abnormalities; BNP was only slightly elevated from baseline. When attempted ambulation in ER his sats dropped into the 70s which prompted his admission further workup 1. Acute on chronic diastolic heart failure -IV lasix 80mgTID... Approximately 4 L negative -follow up dsiuresis.May need Metolazone 2. Chronic atrial fibrillation -rate control adequate -continue outpatient therapies -Coumadin with goal INR 2-3 3. NIRAJ -creatinine at baseline -follow renals/divalents Full code Coumadin Will require hospitalization for IV Lasix to treat shortness of breath and cardiology consult Quality Stroke Does the patient have a stroke diagnosis?: No VTE Prior VTE?: No VTE Risk Level:: Medical - moderate - high VTE Device Contraindication: Treatment Not Indicated VTE Drug Contraindication: N/A - Med Ordered
[2021-11-04 16:18] LABS: Glucose, Whole Blood 220 mg/dL (60-115)
[2021-11-04] MEDS: Warfarin Sodium 2.5 MG TABLET PO (16:36)
[2021-11-04 20:00] LABS: Glucose, Whole Blood 217 mg/dL (60-115)
[2021-11-04] MEDS: Amitriptyline HCl 50 MG TABLET PO (21:07)
[2021-11-04] MEDS: Atorvastatin Calcium 80 MG TABLET PO (21:07)
[2021-11-04] MEDS: Insulin Glargine,Hum.rec.anlog 100 UNIT/ML 10 ML VIAL 15 UNIT SUBCUT (21:08)
[2021-11-05 02:53] VITALS: BP 124/77; PULSE 62; RESP 16; TEMP 37.3; O2SAT 98
[2021-11-05 06:13] LABS: MANUAL DIFF FLAG NO
[2021-11-05 06:32] LABS: Basophils Absolute Auto 0.1 X10*3/uL (0.0-0.2); Basophils Percent Auto 0.9 % (0-2); Eosinophils Absolute Auto 0.3 X10*3/uL (0.0-0.4); Hematocrit 31.8 % (42.0-52.0); Hemoglobin 10.1 g/dl (14.0-18.0); Imm Gran Abs Auto 0.02 X10*3/uL (0.00-0.03); Imm Gran Pct Auto 0.3 % (0.0-0.4); Lymphocytes Percent Auto 14.9 % (20-40); Mean Corpuscular HGB Conc 31.8 g/dl (31.0-36.0); Mean Corpuscular Hemoglobin 28.3 pg (27.0-33.0); Mean Corpuscular Volume 89.1 fL (80.0-98.0); Mean Platelet Volume 9.4 fL (9.4-12.4); Monocytes Absolute Auto 0.8 X10*3/uL (0.1-1.2); Monocytes Percent Auto 11.8 % (2-11); Neutrophils Absolute Auto 4.4 x10*3/uL (2.0-8.3); Neutrophils Percent Auto 68.1 % (45-73); Platelet Count 281 X10*3/uL (160-400); Red Blood Count 3.57 X10*6/uL (4.60-5.80); Red Cell Distribution Width 15.3 % (11.0-16.0); White Blood Count 6.5 X10*3/uL (4.8-10.8)
[2021-11-05 06:38] LABS: Alanine Aminotransferase 10 U/L (0-40); Albumin Level 2.6 g/dL (3.5-5.0); Alkaline Phosphatase 164 U/L (39-117); Anion Gap 13 (12-20); Aspartate Amino Transferase 17 U/L (5-37); Blood Urea Nitrogen 55 mg/dL (9-16); Calcium 8.5 mg/dL (8.4-10.2); Carbon Dioxide 27 mmol/L (22-29); Chloride 101 mmol/L (96-108); Creatinine Clr Calc Pharmacy 52.2; Estimated Glomerular Filt Rate 36; Glucose Fasting 169 mg/dL (60-99); Potassium 4.7 mmol/L (3.3-5.1); Sodium 136 mmol/L (135-145); Total Protein 6.8 g/dL (6.5-8.0)
[2021-11-05 06:44] LABS: B Type Natriuretic Peptide 335 pg/mL (<100)
[2021-11-05 07:14] VITALS: BP 136/83; PULSE 65; RESP 20; TEMP 37.1; O2SAT 99
[2021-11-05 07:49] LABS: Glucose, Whole Blood 163 mg/dL (60-115)
[2021-11-05] MEDS: Insulin Lispro 100 UNIT/ML 3 ML VIAL SUBCUT ×4 (08:01→21:38)
[2021-11-05] MEDS: Metoprolol Tartrate 25 MG TABLET PO ×2 (08:02→21:36)
[2021-11-05] MEDS: Potassium Chloride ER 20 MEQ TAB.ER.PRT 40 MEQ PO ×2 (08:02→21:37)
[2021-11-05] MEDS: Tamsulosin HCL 0.4 MG CAPSULE 0.8 MG PO (08:02)
[2021-11-05] MEDS: Furosemide 100 MG/10 ML VIAL 80 MG IVPUSH ×3 (08:02→21:36)
[2021-11-05] MEDS: Isosorbide Mononitrate 60 MG TAB.ER.24H PO (08:02)
[2021-11-05] MEDS: 0.9 % Sodium Chloride Flush 3 ML SYRINGE IVFLUSH ×3 (08:02→21:39)
[2021-11-05 10:44] LABS: INTERNATIONAL NORM RATIO 1.9 (0.9-1.1); Prothrombin Time 21.9 SEC (9.9-13.0)
[2021-11-05 11:20] VITALS: BP 116/70; PULSE 57; RESP 20; TEMP 36.4; O2SAT 99
[2021-11-05 11:49] LABS: Glucose, Whole Blood 178 mg/dL (60-115)
--- NOTE | 2021-11-05 13:10 | P.PNCA_ITS ---
Subjective Subjective Date of Service: 11/05/21 Principal diagnosis: CHF, atrial fibrillation Interval history: Feeling better Still appears volume overloaded. Ascites present. Physical Exam Vital Signs: Last Vital Signs Temp 97.5 F 11/05/21 11:20 Pulse 57 11/05/21 11:20 Resp 20 11/05/21 11:20 BP 116/70 11/05/21 11:20 Pulse Ox 99 11/05/21 11:20 Oxygen Flow Rate 2 11/01/21 19:58 BMI result Body Mass Index 33.1 GENERAL APPEARANCE: in no acute distress, well developed, well nourished. NECK/THYROID: no carotid bruit, + jugular venous distention with prominent V wave. SKIN: no suspicious lesions, warm and dry. HEART: irregularly irregular rhythm, Parasternal and apical holosystolic murmurs. LUNGS: clear to auscultation bilaterally. ABDOMEN: normal, bowel sounds present, soft, nontender, nondistended. EXTREMITIES: +edema PERIPHERAL PULSES: equal. NEUROLOGIC: nonfocal, alert and oriented. Objective Labs and Meds Result diagrams: 11/05/21 05:53 11/05/21 05:59 Lab results: Laboratory Results - last 24 hr 11/04/21 11/04/21 11/05/21 15:59 19:51 05:53 WBC 6.5 RBC 3.57 L Hgb 10.1 L Hct 31.8 L MCV 89.1 MCH 28.3 MCHC 31.8 RDW 15.3 Plt Count 281 MPV 9.4 Immature Gran % (Auto) 0.3 Neut % (Auto) 68.1 Lymph % (Auto) 14.9 L [place] % (Auto) 11.8 H Eos % (Auto) 4.0 Baso % (Auto) 0.9 Lymph # (Auto) 1.0 L [place] # (Auto) 0.8 Eos # (Auto) 0.3 Baso # (Auto) 0.1 Abs Immat Gran (auto) 0.02 Absolute Neuts (auto) 4.4 Absolute Nucleated RBC 0.000 Nucleated RBC % (auto) 0.0 PT INR Sodium Potassium Chloride Carbon Dioxide Anion Gap BUN Creatinine Estim Creat Clear Calc Estimated GFR POC Glucose 220 H 217 H Fasting Glucose Calcium Total Bilirubin AST ALT Alkaline Phosphatase B-Natriuretic Peptide Total Protein Albumin 11/05/21 11/05/21 11/05/21 05:59 05:59 07:12 WBC RBC Hgb Hct MCV MCH MCHC RDW Plt Count MPV Immature Gran % (Auto) Neut % (Auto) Lymph % (Auto) [place] % (Auto) Eos % (Auto) Baso % (Auto) Lymph # (Auto) [place] # (Auto) Eos # (Auto) Baso # (Auto) Abs Immat Gran (auto) Absolute Neuts (auto) Absolute Nucleated RBC Nucleated RBC % (auto) PT INR Sodium 136 Potassium 4.7 Chloride 101 Carbon Dioxide 27 Anion Gap 13 BUN 55 H Creatinine 1.90 H Estim Creat Clear Calc 52.2 Estimated GFR 36 POC Glucose 163 H Fasting Glucose 169 H Calcium 8.5 Total Bilirubin 1.0 AST 17 ALT 10 Alkaline Phosphatase 164 H B-Natriuretic Peptide 335 H Total Protein 6.8 Albumin 2.6 L 11/05/21 11/05/21 10:29 11:19 WBC RBC Hgb Hct MCV MCH MCHC RDW Plt Count MPV Immature Gran % (Auto) Neut % (Auto) Lymph % (Auto) [place] % (Auto) Eos % (Auto) Baso % (Auto) Lymph # (Auto) [place] # (Auto) Eos # (Auto) Baso # (Auto) Abs Immat Gran (auto) Absolute Neuts (auto) Absolute Nucleated RBC Nucleated RBC % (auto) PT 21.9 H INR 1.9 H Sodium Potassium Chloride Carbon Dioxide Anion Gap BUN Creatinine Estim Creat Clear Calc Estimated GFR POC Glucose 178 H Fasting Glucose Calcium Total Bilirubin AST ALT Alkaline Phosphatase B-Natriuretic Peptide Total Protein Albumin Progress Note: A&P Assessment and plan (1) Acute heart failure: Status: Acute Plan 61 male with chronic Afib and CHF admitted with acute exacerbation. Doing well on IV diuretics. c/w IV Lasix today. Change to PO Torsemide tomorrow. Can potentially go home tomorrow. Time Spent With Patient Time: Total time spent is greater than 50% in coordination of care (as documented) at patient's floor/unit and/or counseling patient: Progress Note: Quality Stroke Does the patient have a stroke diagnosis?: No Procedures Date of Service Date of Service: 11/05/21
[2021-11-05 15:14] VITALS: BP 125/69; PULSE 57; RESP 18; TEMP 36.4; O2SAT 97
--- NOTE | 2021-11-05 15:36 | P.PNIM_ITS ---
Subjective Subjective Date of Service: 11/05/21 Interval History: Good response to IV diuresis. Breathing improved Review of Systems Denies chest pain Admits to shortness of breath with exertion Denies nausea vomiting diarrhea Denies fever chills Physical Exam Vital Signs: Vital Signs: Last Vital Signs Temp 97.6 F 11/05/21 15:14 Pulse 57 11/05/21 15:14 Resp 18 11/05/21 15:14 BP 125/69 11/05/21 15:14 Pulse Ox 2 L 11/05/21 15:14 Oxygen Flow Rate 2 11/01/21 19:58 BMI result Body Mass Index 33.1 Const: Other: Awake alert oriented x3 no acute distress Resp: Other: Clear to auscultation bilaterally no rales rhonchi wheezes Cardio: Other: No S4; positive S1-S2; no S3 murmurs rubs or gallops GI: Other: Soft nontender nondistended normoactive bowel sounds Extrem: Other: 20 changes consistent with chronic venous stasis disease. No edema bilaterally Objective Data Active Medications Acetaminophen (Acetaminophen 325 Mg Tablet) 650 mg PO Q8H PRN PRN Reason: Pain, Moderate (Pain Scale 4-6 Last Admin: 11/02/21 01:55 Dose: 650 mg Documented by: AUDREY Amitriptyline HCl (Amitriptyline Hcl 50 Mg Tablet) 50 mg PO BEDTIME ALEM Last Admin: 11/04/21 21:07 Dose: 50 mg Documented by: DWAYNE Atorvastatin Calcium (Atorvastatin Calcium 80 Mg Tablet) 80 mg PO BEDTIME ALEM Last Admin: 11/04/21 21:07 Dose: 80 mg Documented by: DWAYNE Dextrose (Dextrose 50 % 25 Gm/50 Ml Syringe) 25 gm IVPUSH Q15M PRN; Protocol PRN Reason: per Hypoglycemia Standing Ord. Furosemide (Furosemide 100 Mg/10 Ml Vial) 80 mg IVPUSH TID ALEM; Protocol Last Admin: 11/05/21 08:02 Dose: 80 mg Documented by: GIANCARLO Glucose (Glucose Gel 15 Gm Gel..Gram.) 15 gm PO Q15M PRN; Protocol PRN Reason: per Hypoglycemia Standing Ord. Insulin Glargine (Insulin Glargine,Hum.Rec.Anlog 100 Unit/Ml 10 Ml Vial) 15 unit SUBCUT BEDTIME [facility] Last Admin: 11/04/21 21:08 Dose: 15 unit Documented by: DWAYNE Insulin Human Lispro (Insulin Lispro 100 Unit/Ml 3 Ml Vial) 0 unit SUBCUT QIDACHS [facility]; Protocol Last Admin: 11/05/21 12:39 Dose: 2 unit Documented by: GIANCARLO Isosorbide Mononitrate (Isosorbide Mononitrate 60 Mg Tab.Er.24h) 60 mg PO DAILY [facility]; Protocol Last Admin: 11/05/21 08:02 Dose: 60 mg Documented by: GIANCARLO Metoprolol Tartrate (Metoprolol Tartrate 25 Mg Tablet) 25 mg PO BID [facility]; Protocol Last Admin: 11/05/21 08:02 Dose: 25 mg Documented by: GIANCARLO Pharmacy Consult (Consult Rx Perform Med Rec) 1 each MISCELLANE ONCE PRN PRN Reason: Consult order Potassium Chloride (Potassium Chloride Er 20 Meq Tab.Er.Prt) 40 meq PO BID [facility] Last Admin: 11/05/21 08:02 Dose: 40 meq Documented by: GIANCARLO Sodium Chloride (0.9 % Sodium Chloride Flush 3 Ml Syringe) 3 ml IVFLUSH QSHIFT [facility] Last Admin: 11/05/21 08:02 Dose: 3 ml Documented by: GIANCARLO Tamsulosin HCl (Tamsulosin Hcl 0.4 Mg Capsule) 0.8 mg PO DAILY [facility] Last Admin: 11/05/21 08:02 Dose: 0.8 mg Documented by: GIANCARLO Warfarin Sodium (Warfarin Sodium 5 Mg Tablet) 5 mg PO LU@1800 [facility] Warfarin Sodium (Warfarin Sodium 2.5 Mg Tablet) 2.5 mg PO MOTUWETHFRSA@1800 [facility] Last Admin: 11/04/21 16:36 Dose: 2.5 mg Documented by: SHARAD Labs CBC & Chem 7: 11/05/21 05:53 11/05/21 05:59 Labs: Laboratory Results - last 24 hr 11/04/21 11/04/21 11/05/21 15:59 19:51 05:53 MCV 89.1 MCH 28.3 MCHC 31.8 RDW 15.3 Plt Count 281 MPV 9.4 Immature Gran % (Auto) 0.3 Neut % (Auto) 68.1 Lymph % (Auto) 14.9 L [place] % (Auto) 11.8 H Eos % (Auto) 4.0 Baso % (Auto) 0.9 Lymph # (Auto) 1.0 L [place] # (Auto) 0.8 Eos # (Auto) 0.3 Baso # (Auto) 0.1 Abs Immat Gran (auto) 0.02 Absolute Neuts (auto) 4.4 Absolute Nucleated RBC 0.000 Nucleated RBC % (auto) 0.0 PT INR Anion Gap Estim Creat Clear Calc Estimated GFR POC Glucose 220 H 217 H Fasting Glucose Calcium Total Bilirubin AST ALT Alkaline Phosphatase B-Natriuretic Peptide Total Protein Albumin 11/05/21 11/05/21 11/05/21 05:59 05:59 07:12 MCV MCH MCHC RDW Plt Count MPV Immature Gran % (Auto) Neut % (Auto) Lymph % (Auto) [place] % (Auto) Eos % (Auto) Baso % (Auto) Lymph # (Auto) [place] # (Auto) Eos # (Auto) Baso # (Auto) Abs Immat Gran (auto) Absolute Neuts (auto) Absolute Nucleated RBC Nucleated RBC % (auto) PT INR Anion Gap 13 Estim Creat Clear Calc 52.2 Estimated GFR 36 POC Glucose 163 H Fasting Glucose 169 H Calcium 8.5 Total Bilirubin 1.0 AST 17 ALT 10 Alkaline Phosphatase 164 H B-Natriuretic Peptide 335 H Total Protein 6.8 Albumin 2.6 L 11/05/21 11/05/21 10:29 11:19 MCV MCH MCHC RDW Plt Count MPV Immature Gran % (Auto) Neut % (Auto) Lymph % (Auto) [place] % (Auto) Eos % (Auto) Baso % (Auto) Lymph # (Auto) [place] # (Auto) Eos # (Auto) Baso # (Auto) Abs Immat Gran (auto) Absolute Neuts (auto) Absolute Nucleated RBC Nucleated RBC % (auto) PT 21.9 H INR 1.9 H Anion Gap Estim Creat Clear Calc Estimated GFR POC Glucose 178 H Fasting Glucose Calcium Total Bilirubin AST ALT Alkaline Phosphatase B-Natriuretic Peptide Total Protein Albumin Assessment and Plan (1) Acute on chronic diastolic HF (heart failure): Status: Acute (2) Chronic a-fib: Status: Acute (3) NIRAJ (acute kidney injury): Status: Acute Plan 61-year-old male with a history of atrial fibrillation chronic kidney disease acute on chronic combined heart failure presents with worsening shortness of breath what and what he describes as a 20 lb weight gain. In the emergency room chest x-ray failed to demonstrate any acute abnormalities; BNP was only slightly elevated from baseline. When attempted ambulation in ER his sats dropped into the 70s which prompted his admission further workup 1. Acute on chronic diastolic heart failure -IV lasix 80mgTID... Approximately 8.7 L negative -switch to to Pablo amide in a.m. 2. Chronic atrial fibrillation -rate control adequate -continue outpatient therapies -Coumadin with goal INR 2-3 3. NIRAJ -creatinine at baseline -follow renals/divalents Full code Coumadin Will require hospitalization for IV Lasix to treat shortness of breath and cardiology consult Quality Stroke Does the patient have a stroke diagnosis?: No VTE Prior VTE?: No VTE Risk Level:: Medical - moderate - high VTE Device Contraindication: Treatment Not Indicated VTE Drug Contraindication: N/A - Med Ordered
[2021-11-05 17:05] LABS: Glucose, Whole Blood 186 mg/dL (60-115)
[2021-11-05] MEDS: Warfarin Sodium 2.5 MG TABLET PO (17:07)
[2021-11-05 19:29] VITALS: BP 143/74; PULSE 61; RESP 18; TEMP 36.6; O2SAT 96
[2021-11-05 21:19] LABS: Glucose, Whole Blood 276 mg/dL (60-115)
[2021-11-05] MEDS: Amitriptyline HCl 50 MG TABLET PO (21:37)
[2021-11-05] MEDS: Atorvastatin Calcium 80 MG TABLET PO (21:37)
[2021-11-05] MEDS: Insulin Glargine,Hum.rec.anlog 100 UNIT/ML 10 ML VIAL 15 UNIT SUBCUT (21:38)
[2021-11-05 23:57] VITALS: BP 138/70; PULSE 63; RESP 18; TEMP 36.6; O2SAT 97
[2021-11-06 04:00] VITALS: BP 132/76; PULSE 56; RESP 20; TEMP 37; O2SAT 99
[2021-11-06 06:30] LABS: MANUAL DIFF FLAG NO
[2021-11-06 06:51] LABS: INTERNATIONAL NORM RATIO 1.7 (0.9-1.1); Prothrombin Time 19.5 SEC (9.9-13.0)
[2021-11-06 06:59] LABS: Basophils Absolute Auto 0.1 X10*3/uL (0.0-0.2); Basophils Percent Auto 0.7 % (0-2); Eosinophils Absolute Auto 0.3 X10*3/uL (0.0-0.4); Eosinophils Percent Auto 4.4 % (0-4); Hemoglobin 9.6 g/dl (14.0-18.0); Imm Gran Abs Auto 0.03 X10*3/uL (0.00-0.03); Imm Gran Pct Auto 0.4 % (0.0-0.4); Lymphocytes Percent Auto 13.4 % (20-40); Mean Corpuscular Hemoglobin 27.5 pg (27.0-33.0); Mean Corpuscular Volume 88.8 fL (80.0-98.0); Mean Platelet Volume 9.6 fL (9.4-12.4); Monocytes Absolute Auto 0.8 X10*3/uL (0.1-1.2); Monocytes Percent Auto 11.5 % (2-11); Neutrophils Percent Auto 69.6 % (45-73); Platelet Count 269 X10*3/uL (160-400); Red Blood Count 3.49 X10*6/uL (4.60-5.80); Red Cell Distribution Width 15.2 % (11.0-16.0); White Blood Count 7.1 X10*3/uL (4.8-10.8)
[2021-11-06 07:25] LABS: Alanine Aminotransferase 8 U/L (0-40); Albumin Level 2.6 g/dL (3.5-5.0); Alkaline Phosphatase 182 U/L (39-117); Anion Gap 14 (12-20); Aspartate Amino Transferase 15 U/L (5-37); Bilirubin Total 0.7 mg/dL (0.0-1.0); Blood Urea Nitrogen 57 mg/dL (9-16); Calcium 8.5 mg/dL (8.4-10.2); Carbon Dioxide 24 mmol/L (22-29); Chloride 102 mmol/L (96-108); Creatinine Clr Calc Pharmacy 55.7; Estimated Glomerular Filt Rate 39; Glucose Fasting 211 mg/dL (60-99); Potassium 4.6 mmol/L (3.3-5.1); Sodium 135 mmol/L (135-145); Total Protein 6.5 g/dL (6.5-8.0)
[2021-11-06 07:27] LABS: Glucose, Whole Blood 206 mg/dL (60-115)
[2021-11-06 07:33] VITALS: BP 131/68; PULSE 57; RESP 20; TEMP 36.7; O2SAT 98
[2021-11-06] MEDS: Insulin Lispro 100 UNIT/ML 3 ML VIAL SUBCUT ×2 (07:59→11:33)
[2021-11-06] MEDS: Potassium Chloride ER 20 MEQ TAB.ER.PRT 40 MEQ PO (08:00)
[2021-11-06] MEDS: Isosorbide Mononitrate 60 MG TAB.ER.24H PO (08:00)
[2021-11-06] MEDS: Metoprolol Tartrate 25 MG TABLET PO (08:00)
[2021-11-06] MEDS: Tamsulosin HCL 0.4 MG CAPSULE 0.8 MG PO (08:00)
[2021-11-06] MEDS: Furosemide 100 MG/10 ML VIAL 80 MG IVPUSH (08:01)
[2021-11-06] MEDS: 0.9 % Sodium Chloride Flush 3 ML SYRINGE IVFLUSH (08:01)
--- NOTE | 2021-11-06 08:32 | MHC.CM.PN ---
DISCHARGE PLAN REMAINS HOME WITH RESUMPTION OF [employer]PER[employer]OR SERVICES. 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 HCP IS ON FILE. PT WILL ARRANGE TRANSPORT AT [place]
[2021-11-06 11:08] LABS: Glucose, Whole Blood 196 mg/dL (60-115)
[2021-11-06 12:00] VITALS: BP 130/63; PULSE 60; RESP 20; TEMP 36.5; O2SAT 91
--- NOTE | 2021-11-06 12:16 | PM.DS ---
DS: Providers Provider Date of Service: 11/06/21 Date of admission: 11/01/21 14:48 Date of discharge: 11/06/21 Primary care physician: Tawana Bowen NP Consults: 11/01/21 18:03 Consult to Cardiology Routine Consulting Provider: Coleman Burnett Reason for consultation: Query acute on chronic CHF Has provider been notified: No DS: Diagnosis Discharge Diagnosis (1) Acute heart failure: Status: Acute DS: Summary Hospital Course Hospital Course: 61-year-old gentleman with known history of atrial fibrillation and chronic congestive heart failure who is presenting for 20 lb weight gain and shortness of breath.? Clinically volume overloaded.? Has been compliant with medications.? He is saying he has not taken ext was all but drinks water fairly regularly.? Taking medications regularly.? He has a CardioMEMS device and has been followed closely by Dr Porter at [facility]. Hospital Course Patient was admitted to telemetry where his AFib was well controlled from a rate standpoint. His torsemide was switched to IV Lasix 80 mg t.i.d.. Over the course of his hospitalization he diuresed 7.5 L. his kidney function remained at baseline: (1.78 - 2.0). 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 hospital Time Spent with Patient Time attestation: Total time spent providing and/or coordinating discharge services: Discharge coordination time: Greater than 30 minutes Quality: Safe Use of Opioids Does Pt have an Active Cancer Diagnosis on the Problem List?: No Quality: Stroke Does the patient have a stroke diagnosis?: No Physical Exam Vital Signs: Vital Signs: Last Vital Signs Temp 97.7 F 11/06/21 12:00 Pulse 60 11/06/21 12:00 Resp 20 11/06/21 12:00 BP 130/63 11/06/21 12:00 Pulse Ox 91 L 11/06/21 12:00 Oxygen Flow Rate 2 11/01/21 19:58 BMI result Body Mass Index 33.1 Const: Other: Awake alert oriented x3 no acute distress Resp: Other: Clear to auscultation bilaterally no rales rhonchi wheezes Cardio: Other: No S4; positive S1-S2; no S3 murmurs rubs or gallops GI: Other: Soft nontender nondistended normoactive bowel sounds Extrem: Other: 20 changes consistent with chronic venous stasis disease. No edema bilaterally DS: Data Data Completed and Pending Completed studies during hospitalization [Text1]: Procedures Assistance with Respiratory Ventilation, Less than 24 Consecutive Hours, Continuous Positive Airway Pressure (09/08/21) Introduction of Remdesivir Anti-infective into Peripheral Vein, Percutaneous Approach, [employer] (08/19/21) Transfusion of Nonautologous Red Blood Cells into Peripheral Vein, Percutaneous Approach (07/17/21) Labs on day of discharge: Laboratory Results - last 24 hr 11/05/21 11/05/21 11/06/21 16:53 21:03 05:59 WBC RBC Hgb Hct MCV MCH MCHC RDW Plt Count MPV Immature Gran % (Auto) Neut % (Auto) Lymph % (Auto) [place] % (Auto) Eos % (Auto) Baso % (Auto) Lymph # (Auto) [place] # (Auto) Eos # (Auto) Baso # (Auto) Abs Immat Gran (auto) Absolute Neuts (auto) Absolute Nucleated RBC Nucleated RBC % (auto) PT INR Sodium 135 Potassium 4.6 Chloride 102 Carbon Dioxide 24 Anion Gap 14 BUN 57 H Creatinine 1.78 H Estim Creat Clear Calc 55.7 Estimated GFR 39 POC Glucose 186 H 276 H Fasting Glucose 211 H Calcium 8.5 Total Bilirubin 0.7 AST 15 ALT 8 Alkaline Phosphatase 182 H Total Protein 6.5 Albumin 2.6 L 11/06/21 11/06/21 11/06/21 06:00 06:00 07:12 WBC 7.1 RBC 3.49 L Hgb 9.6 L Hct 31.0 L MCV 88.8 MCH 27.5 MCHC 31.0 RDW 15.2 Plt Count 269 MPV 9.6 Immature Gran % (Auto) 0.4 Neut % (Auto) 69.6 Lymph % (Auto) 13.4 L [place] % (Auto) 11.5 H Eos % (Auto) 4.4 H Baso % (Auto) 0.7 Lymph # (Auto) 1.0 L [place] # (Auto) 0.8 Eos # (Auto) 0.3 Baso # (Auto) 0.1 Abs Immat Gran (auto) 0.03 Absolute Neuts (auto) 5.0 Absolute Nucleated RBC 0.000 Nucleated RBC % (auto) 0.0 PT 19.5 H INR 1.7 H Sodium Potassium Chloride Carbon Dioxide Anion Gap BUN Creatinine Estim Creat Clear Calc Estimated GFR POC Glucose 206 H Fasting Glucose Calcium Total Bilirubin AST ALT Alkaline Phosphatase Total Protein Albumin 11/06/21 10:55 WBC RBC Hgb Hct MCV MCH MCHC RDW Plt Count MPV Immature Gran % (Auto) Neut % (Auto) Lymph % (Auto) [place] % (Auto) Eos % (Auto) Baso % (Auto) Lymph # (Auto) [place] # (Auto) Eos # (Auto) Baso # (Auto) Abs Immat Gran (auto) Absolute Neuts (auto) Absolute Nucleated RBC Nucleated RBC % (auto) PT INR Sodium Potassium Chloride Carbon Dioxide Anion Gap BUN Creatinine Estim Creat Clear Calc Estimated GFR POC Glucose 196 H Fasting Glucose Calcium Total Bilirubin AST ALT Alkaline Phosphatase Total Protein Albumin Discharge Plan Discharge Patient Disposition: Home, Self-Care Discharge Diagnosis: Acute on chronic diastolic heart failure Referrals: Tawana Bowen, [facility]ERMAN [Primary Care Provider] - 1 Week Discharge Medications: Continued atorvastatin 80 mg tablet 1 tab PO BEDTIME 0RF metoprolol succinate 25 mg tablet extended release 24 hr 1 tab PO DAILY 0RF isosorbide mononitrate 60 mg tablet extended release 24 hr 1 tab PO DAILY 0RF torsemide 100 mg tablet 1 tab PO BIDWM 0RF tamsulosin 0.4 mg capsule 0.8 mg PO DAILY Qty: 60 0RF amitriptyline 50 mg tablet 1 tab PO BEDTIME Qty: 0 0RF warfarin 2.5 mg Tablet 5 mg PO LU@1800 0RF warfarin 2.5 mg Tablet 2.5 mg PO MOTUWETHFRSA@1800 0RF amlodipine [Norvasc] 10 mg Tablet 10 mg PO DAILY 0RF potassium chloride 20 mEq Tablet Extended Release 40 meq PO BID 0RF Lantus Solostar U-100 Insulin 100 unit/mL (3 mL) insulin pen 15 unit subcut BEDTIME 0RF (DME) pen needle, diabetic [BD Ultra-Fine Short Pen Needle] 31 gauge x 5/16 needle See Rx Instructions ea subcut DAILY Qty: 1200 0RF Rx Instructions: As directed Discharge Orders: Discharge Order (Routine); Ordered 11/06/21 Ordered By: [place] Diet: advance to usual diet Activity on Discharge: As tolerated Stand Alone Forms: Patient Portal Discharge page Care Plan Goals: Resume previous med regimen as before hospital Health Concerns: Continue to monitor your weight and report gains to physician Plan of Treatment: Follow-up with Dr. Kulwant Porter 1-2 weeks Assessment: See discharge summary
--- NOTE | 2021-11-06 13:09 | MHC.CM.PN ---
PT WILL DC HOME TODAY WITH RESUMPTION OF [employer]IE[employer] SERVICES PT TO SELF ARRANGE TRANSPORT
--- NOTE | 2021-11-06 13:48 | P.PNCA_ITS ---
Subjective Subjective Date of Service: 11/06/21 Principal diagnosis: CHF, atrial fibrillation Interval history: Feeling better. Physical Exam Vital Signs: Last Vital Signs Temp 97.7 F 11/06/21 12:00 Pulse 60 11/06/21 12:00 Resp 20 11/06/21 12:00 BP 130/63 11/06/21 12:00 Pulse Ox 91 L 11/06/21 12:00 Oxygen Flow Rate 2 11/01/21 19:58 BMI result Body Mass Index 33.1 GENERAL APPEARANCE: in no acute distress, well developed, well nourished. NECK/THYROID: no carotid bruit, + jugular venous distention with prominent V wave. SKIN: no suspicious lesions, warm and dry. HEART: irregularly irregular rhythm, Parasternal and apical holosystolic murmurs. LUNGS: clear to auscultation bilaterally. ABDOMEN: normal, bowel sounds present, soft, nontender, nondistended. EXTREMITIES: +edema PERIPHERAL PULSES: equal. NEUROLOGIC: nonfocal, alert and oriented. Objective Labs and Meds Result diagrams: 11/06/21 06:00 11/06/21 05:59 Lab results: Laboratory Results - last 24 hr 11/05/21 11/05/21 11/06/21 16:53 21:03 05:59 WBC RBC Hgb Hct MCV MCH MCHC RDW Plt Count MPV Immature Gran % (Auto) Neut % (Auto) Lymph % (Auto) [place] % (Auto) Eos % (Auto) Baso % (Auto) Lymph # (Auto) [place] # (Auto) Eos # (Auto) Baso # (Auto) Abs Immat Gran (auto) Absolute Neuts (auto) Absolute Nucleated RBC Nucleated RBC % (auto) PT INR Sodium 135 Potassium 4.6 Chloride 102 Carbon Dioxide 24 Anion Gap 14 BUN 57 H Creatinine 1.78 H Estim Creat Clear Calc 55.7 Estimated GFR 39 POC Glucose 186 H 276 H Fasting Glucose 211 H Calcium 8.5 Total Bilirubin 0.7 AST 15 ALT 8 Alkaline Phosphatase 182 H Total Protein 6.5 Albumin 2.6 L 11/06/21 11/06/21 11/06/21 06:00 06:00 07:12 WBC 7.1 RBC 3.49 L Hgb 9.6 L Hct 31.0 L MCV 88.8 MCH 27.5 MCHC 31.0 RDW 15.2 Plt Count 269 MPV 9.6 Immature Gran % (Auto) 0.4 Neut % (Auto) 69.6 Lymph % (Auto) 13.4 L [place] % (Auto) 11.5 H Eos % (Auto) 4.4 H Baso % (Auto) 0.7 Lymph # (Auto) 1.0 L [place] # (Auto) 0.8 Eos # (Auto) 0.3 Baso # (Auto) 0.1 Abs Immat Gran (auto) 0.03 Absolute Neuts (auto) 5.0 Absolute Nucleated RBC 0.000 Nucleated RBC % (auto) 0.0 PT 19.5 H INR 1.7 H Sodium Potassium Chloride Carbon Dioxide Anion Gap BUN Creatinine Estim Creat Clear Calc Estimated GFR POC Glucose 206 H Fasting Glucose Calcium Total Bilirubin AST ALT Alkaline Phosphatase Total Protein Albumin 11/06/21 10:55 WBC RBC Hgb Hct MCV MCH MCHC RDW Plt Count MPV Immature Gran % (Auto) Neut % (Auto) Lymph % (Auto) [place] % (Auto) Eos % (Auto) Baso % (Auto) Lymph # (Auto) [place] # (Auto) Eos # (Auto) Baso # (Auto) Abs Immat Gran (auto) Absolute Neuts (auto) Absolute Nucleated RBC Nucleated RBC % (auto) PT INR Sodium Potassium Chloride Carbon Dioxide Anion Gap BUN Creatinine Estim Creat Clear Calc Estimated GFR POC Glucose 196 H Fasting Glucose Calcium Total Bilirubin AST ALT Alkaline Phosphatase Total Protein Albumin Progress Note: A&P Assessment and plan (1) Acute heart failure: Status: Acute Plan 61-year-old gentleman with ADCHF. doing better with diuresis. Can change to PO Torsemide and can go home. f/u Dr Porter. Time Spent With Patient Time: Total time spent is greater than 50% in coordination of care (as documented) at patient's floor/unit and/or counseling patient: Progress Note: Quality Stroke Does the patient have a stroke diagnosis?: No Procedures Date of Service Date of Service: 11/06/21
== END 2021-11-06 14:50 | disposition home or self-care (01) | DRG 291 ==
LOC: HO.ED 10:57 → HO.EDOVER 15:17 → HO.IMC 11-03 18:52
PROVIDERS: Nurse Practitioner Family; Admitting Provider Hospitalist; Emergency Provider Emergency Medicine; PCP Nurse Practitioner Family; Visit Provider Hospitalist
DX: I13.0 Hypertensive heart and chronic kidney disease with heart failure and stage 1 through stage 4 chronic kidney disease, or unspecified chronic kidney disease (principal); I50.33 Acute on chronic diastolic (congestive) heart failure; N17.9 Acute kidney failure, unspecified; I48.20 Chronic atrial fibrillation, unspecified; Z95.811 Presence of heart assist device; E11.22 Type 2 diabetes mellitus with diabetic chronic kidney disease; N18.30 Chronic kidney disease, stage 3 unspecified; Z20.822 Contact with and (suspected) exposure to COVID-19; Z79.4 Long term (current) use of insulin; Z79.01 Long term (current) use of anticoagulants; Z79.899 Other long term (current) drug therapy
CPT/HCPCS: 36415; 71046; 76705; 80048; 80053; 80076; 82947; 83880; 84484; 85025; 85379; 85610; 87502; 87635; 93005; 93306; 94660; 99285; J1940; Q9957

== ENCOUNTER 2021-11-29 08:13 | Inpatient (IN) | payer MEDICARE, MEDICAID, SELFPAY ==
--- NOTE | ~2021-11-29 | XR_ITS ---
EXAMINATION: XR CHEST CLINICAL INFORMATION: Right-sided chest pain. COMPARISON: 11/01/2021 TECHNIQUE: Frontal view of the chest was obtained. FINDINGS: Mild patchy bilateral interstitial infiltrate may reflect pneumonia and does appear worse. Heart size borderline with normal caliber pulmonary vessels. XR/XR chest 1V IMPRESSION: Bilateral infiltrates likely reflect pneumonia.
--- NOTE | ~2021-11-29 | CT_ITS ---
EXAMINATION: CT HEAD WITHOUT CONTRAST CLINICAL INFORMATION: Dizziness. History of stroke COMPARISON: Prior CT head 09/08/2021 TECHNIQUE: Contiguous axial imaging was performed from the skull base to vertex without intravenous administration of contrast. This CT examination was performed using dose optimization techniques as appropriate, variously including the following: *Automated exposure control *Adjustment of mA and/or kV according to patient size (this includes techniques or standardized protocols for targeted exams where dose is matched to indication/reason for exam; i.e. extremities or head) *Use of iterative reconstruction technique DLP: 739 mGy-cm FINDINGS: Evidence of an old left occipital infarct again observed. There is prominence to the sulci and ventricles with involutional change observed but no hemorrhage, mass, mass effect or extra-axial collection. Calvarium is intact. CT/CT head/brain wo con IMPRESSION: No acute intracranial pathology.
--- NOTE | ~2021-11-29 | CT_ITS ---
EXAMINATION: CT ABDOMEN AND PELVIS WITHOUT CONTRAST CLINICAL INFORMATION: Right-sided abdominal pain COMPARISON: Ultrasound abdomen dated 11/01/2021 TECHNIQUE: Multidetector volumetric imaging was performed from the superior aspect of the liver through the pubic symphysis. Sagittal and coronal reformatted images were obtained on the technologist's workstation. This CT examination was performed using dose optimization techniques as appropriate, variously including the following: *Automated exposure control *Adjustment of mA and/or kV according to patient size (this includes techniques or standardized protocols for targeted exams where dose is matched to indication/reason for exam; i.e. extremities or head) *Use of iterative reconstruction technique DLP: 1010 mGy-cm FINDINGS: LUNG BASES: There are small bibasilar effusions left greater than right. Coronary artery calcifications are noted. There is mild pericardial thickening. LIVER, GALLBLADDER, AND BILIARY TREE: Mild perihepatic ascites. Liver is prominent and demonstrates mild fatty change but there are no focal lesions. There is no intrahepatic biliary dilatation. The gallbladder is surgically absent. PANCREAS: Unremarkable. SPLEEN: Mild perisplenic ascites. Spleen slightly prominent. Vascular calcifications are noted in the splenic hilum. ADRENAL GLANDS: Unremarkable. KIDNEYS AND URETERS: Extensive renal vascular calcification noted. No suspicious mass, or hydronephrosis or perinephric collection. BLADDER: Unremarkable. GASTROINTESTINAL TRACT: There is no bowel obstruction or right or left lower quadrant inflammatory change. ABDOMINAL WALL: Induration in the subcutaneous fat noted likely reflect anasarca. There is a small amount of ascites in the abdominal cavity. There is slight induration in the upper abdomen and mesenteric fat surrounding the celiac axis and SMA vascular pedicles. The study is performed without IV contrast. LYMPH NODES: Normal. VASCULAR: Extensive vascular calcifications are noted. Is the patient diabetic? IV contrast was not utilized therefore the issue of vascular ischemia cannot be addressed. Mesenteric induration could be the sequela of ischemic change. PELVIC VISCERA: Unremarkable. OSSEOUS STRUCTURES: There is a moderate to advanced compression fracture observed T12. Chronicity uncertain but this may be recent. CT/CT abdomen pelvis wo con IMPRESSION: Ascites. Prominent liver and spleen. Extensive vascular calcifications with mesenteric edema noted. Fleischner guidelines were followed.
[2021-11-29 08:32] VITALS: BP 147/77; PULSE 76; RESP 22; TEMP 36.8; O2SAT 78; BMI 32.1
--- NOTE | 2021-11-29 08:34 | ED.GENADULT ---
HPI - General Adult General Chief complaint: Dyspnea Stated complaint: HEADACHE, R ABD PAIN , DIFFICULTY BREATHING Time Seen by Provider: 11/29/21 08:34 Source: patient Mode of arrival: ambulatory Limitations: no limitations History of Present Illness HPI narrative: Patient is a 61 year old male presenting to the emergency department today with right sided abdominal pain, increased SOB, and dizziness. Patient states that he has a history of COPD requiring oxygen at home, CHF, and a CVA even while on anticoagulation medications. Patient states that he is still on anticoagulation medications. Patient states that over the last few days he has gotten worsening SOB with dizziness. Patient denies any lightheadedness, nausea, vomiting, fever, chills, blurry vision, double vision, loss of vision, chest pain, back pain, night sweats, pain with urination, increased urinary frequency, increased urinary urgency, blood in his urine or stool, syncope or a near syncopal episode, recent trauma or falls, bowel incontinence, bladder incontinence, bowel retention, bladder retention, or any other complaints at this time. Onset (ago): day(s) Location: abdomen Radiation: non-radiation Severity: mild Severity scale (1-10): 2 Quality: dull Pain Consistency: constant Relieving factors: none Exacerbating factors: none Associated symptoms: shortness of breath Treatments prior to arrival: none Related Data Home Medications Medication Instructions Recorded Confirmed atorvastatin 80 mg tablet 1 tab PO BEDTIME 05/08/20 11/29/21 metoprolol succinate 25 mg 1 tab PO DAILY 05/08/20 11/29/21 tablet,extended release 24 hr isosorbide mononitrate 60 mg 1 tab PO DAILY 07/17/21 11/29/21 tablet,extended release 24 hr torsemide 100 mg tablet 1 tab PO BIDWM 07/17/21 11/29/21 insulin glargine 100 unit/mL (3 15 unit SUBCUT BEDTIME 10/06/21 11/29/21 mL) subcutaneous pen (Lantus Solostar U-100 Insulin) pen needle, diabetic 31 gauge x #1200 ea 10/06/21 10/06/2111/14 (BD Ultra-Fine Short Pen Needle) amlodipine 10 mg tablet (Norvasc) 10 mg PO DAILY 11/01/21 11/29/21 warfarin 2.5 mg tablet 2.5 mg PO MOTUWETHFRSA@1800 11/01/21 11/29/21 warfarin 2.5 mg tablet 5 mg PO LU@1800 11/01/21 11/29/21 omeprazole 40 mg capsule,delayed 1 cap PO DAILY 11/29/21 11/29/21 release potassium chloride 20 mEq 2 tab PO BID 11/29/21 11/29/21 tablet,extended release(part/cryst) tamsulosin 0.4 mg capsule 2 cap PO DAILY 11/29/21 11/29/21 torsemide 20 mg tablet 40 mg PO BID PRN 11/29/21 11/29/21 Previous Rx's Medication Instructions Recorded amitriptyline 50 mg tablet 1 tab PO BEDTIME #0 tab 09/12/21 Allergies Allergy/AdvReac Type Severity Reaction Status Date / Time No Known Allergies Allergy Unknown NKDA Verified 10/18/21 09:25 Review of Systems Constitutional: Constitutional: Reports no additional constitutional complaints, Denies chills, Denies fever(s) and Denies night sweats Eyes: Eyes: Reports no additional eye complaints, Denies blurry vision, Denies change in vision, Denies diplopia, Denies eye discharge, Denies loss of vision and Denies eye pain ENT: Reports dizziness Cardiovascular: Cardiovascular: Reports no additional cardiovascular complaints, Denies chest pain, Denies lightheadedness, Denies Loss of Consciousness and Reports dyspnea Respiratory: Respiratory: Reports no additional respiratory complaints and Reports dyspnea Gastrointestinal: Gastrointestinal: Reports no additional gastrointestinal complaints, Reports abdominal pain, Denies melena, Denies hematochezia, Denies change in bowel habits and Denies change in stool character Genitourinary: Genitourinary: Reports no additional male genitourinary complaints, Denies hematuria, Denies oliguria, Denies difficulty urinating, Denies dysuria, Denies urinary frequency, Denies urinary hesitancy, Denies urinary incontinence and Denies urinary urgency Musculoskeletal: Musculoskeletal: Reports no additional musculoskeletal complaints, Denies numbness and Denies tingling Neurologic: Reports dizziness, Denies loss of vision, Denies numbness and Denies tingling Psychiatric: Psychiatric: Reports no additional psychiatric complaints Endocrine: Endocrine: Reports no additional endocrine complaints Hematologic/Lymphatic: Hematologic/Lymphatic: Reports no additional hematologic/lymphatic complaints Allergic/Immunologic: Allergic/Immunologic: Reports no additional allergic/immunologic complaints PMFSH Past Medical History Attestation statement: The following information was validated with the patient. Source: old records reviewed Medical History Anasarca Atrial fibrillation CAD (coronary artery disease) Cataract Cholecystectomy planned Chronic a-fib Chronic combined systolic and diastolic congestive heart failure Chronic respiratory failure CKD (chronic kidney disease) stage 3, GFR 30-59 ml/min CVA (cerebral vascular accident) Diabetes Gross hematuria Heart attack HTN (hypertension) Hyperlipidemia Neuropathy DARLENE on CPAP Permanent atrial fibrillation Polycythemia vera Pulmonary hypertension Toe amputee Urinary retention with incomplete bladder emptying Surgical History History of cholecystectomy Family History Family History Father Diabetes Hx of cancer antigen 125 (CA-125) measurement Mother Diabetes Brother Diabetes Hx of cancer antigen 125 (CA-125) measurement Social History Social History 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 Housing: House Do you presently have visiting nurse or other home services: No Alcohol intake: former Patient Tobacco Use Status: Never used Tobacco Use of substances other than those prescribed or required for medical reasons: No Advance Directives: Yes Advance Directives on File: Yes Advance Directives Date on File: 09/15/21 service: No Current occupational status: disabled Physical Exam ED Vital Signs: Vital Signs - 24 hr 11/29/21 08:32 11/29/21 09:15 11/29/21 10:43 Temperature 98.2 F Pulse Rate 76 68 76 Respiratory Rate 22 H 20 Blood Pressure 147/77 H 138/86 Pulse Oximetry 78 L 98 97 BMI result Body Mass Index 32.1 Const General: cooperative, no acute distress, alert and awake Nutritional Appearance: well nourished Orientation/consciousness: patient oriented x3 Limitations: no limitations HENMT Head: Yes normal to inspection and Yes atraumatic Ears: hearing grossly normal bilaterally and external ears normal General nose exam: Normal external nose present, no nasal discharge noted and no epistaxis Face and sinus: Yes normal facial exam, No abrasion and No laceration Mouth: Normal oral and palatal mucosa present, no drooling and no muffled voice Eyes General: appearance normal, both eyes and all related structures Periorbital: periorbital findings normal Eyelids: Yes eyelids normal Conjunctivae: conjunctivae normal Pupils: Equal, round and reactive pupils present EOM: EOMs intact bilaterally Neck Neck: Yes normal visual inspection, Yes full ROM and Yes no lymphadenopathy Chest Chest palpation & inspection: normal inspection of the chest Resp Other: patient is on 3L of oxygen via [place] Effort & Inspection: able to speak in complete sentences and labored Auscultation: diminished lung sounds GI Inspection: Yes normal to inspection Palpation (GI): Soft to palpation, not firm, nontender, no guarding and not rigid Neuro General: patient oriented x3 and moves all extremities Cranial nerves: Yes Equal, round and reactive pupils present Cognition (Neuro): normal cognition Motor exam (neuro): 5/5 motor strength present throughout Sensory Exam: Normal double simultaneous stimulation for sensation Coordination: [id number] test normal Extrem General: Yes normal to inspection, Yes full ROM and Yes capillary refill normal Psych Appearance: grossly normal Mental Status: mental status grossly normal Affect: normal affect Attitude: cooperative Thought process: Normal thought process present Thought content: Normal thought content present Insight: Good insight present (Psych) Medical Decision Making MDM Narrative Medical decision making narrative: Patient is a 61 year old male presenting to the emergency department today with increased shortness of breath and abdominal pain. Patient's physical exam showed diminished breath sounds throughout. Patient was initially 76-78% on room air and increased to 99% on 3L of oxygen via NC. Patient's blood work showed an elevated blood sugar of 406, an elevated creatinine of 1.57, and an elevated BUN of 50. Patient's EKG showed atrial fibrillation. Patient's chest x-ray showed bilateral infiltrates consistent with pneumonia. Patient's abdominal CT showed ascites. I do not believe this patient to be septic. Patient was given IV Rocephin and Azithromycin. I spoke to Dr. Matson, who agreed to hospital admission. I explained my physical exam findings as well as all test results to the patient. I answered all questions asked by the patient. Patient verbalized agreement and understanding with this treatment plan and admission. Differential Diagnosis Differential Diagnosis: pneumonia, hypoxia Medical Records Medical records reviewed: Yes I reviewed the patient's medical records. Lab Data Lab results reviewed: Yes I reviewed the patient's lab results. Result diagrams: 11/29/21 09:12 11/29/21 09:11 Labs: Lab Results 11/29/21 11/29/21 11/29/21 Range/Units 09:09 09:11 09:11 WBC (4.8-10.8) X10*3/uL RBC (4.60-5.80) X10*6/uL Hgb (14.0-18.0) g/dl Hct (42.0-52.0) % MCV (80.0-98.0) fL MCH (27.0-33.0) pg MCHC (31.0-36.0) g/dl RDW (11.0-16.0) % Plt Count (160-400) X10*3/uL MPV (9.4-12.4) fL Immature Gran % (Auto) (0.0-0.4) % Neut % (Auto) (45-73) % Lymph % (Auto) (20-40) % Bradford % (Auto) (2-11) % Eos % (Auto) (0-4) % Baso % (Auto) (0-2) % Lymph # (Auto) (1.2-4.9) X10*3/uL Bradford # (Auto) (0.1-1.2) X10*3/uL Eos # (Auto) (0.0-0.4) X10*3/uL Baso # (Auto) (0.0-0.2) X10*3/uL Abs Immat Gran (auto) (0.00-0.03) X10*3/uL Absolute Neuts (auto) (2.0-8.3) x10*3/uL Absolute Nucleated RBC (0.0-0.012) X10*3/uL Nucleated RBC % (auto) (0.0-0.2) /100WBC PT (9.9-13.0) SEC INR (0.9-1.1) VBG pH 7.38 (7.32-7.43) VBG pCO2 41 mmHg VBG pO2 51 mmHg VBG HCO3 24 (22-26) mmol/L VBG O2 Saturation 72.0 % VBG Base Excess -0.3 mmol/L Sodium 133 L (135-145) mmol/L Potassium 4.3 (3.3-5.1) mmol/L Chloride 102 (96-108) mmol/L Carbon Dioxide 24 (22-29) mmol/L Anion Gap 11 L (12-20) BUN 50 H (9-16) mg/dL Creatinine 1.57 H (0.5-1.4) mg/dL Estim Creat Clear Calc 62.2 Estimated GFR 45 Random Glucose 406 H* (60-115) mg/dL Lactic Acid (0.5-2.0) mmol/L Calcium 8.2 L (8.4-10.2) mg/dL Magnesium 1.9 (1.6-2.6) mg/dL Total Bilirubin 0.8 (0.0-1.0) mg/dL AST 18 (5-37) U/L ALT 13 (0-40) U/L Alkaline Phosphatase 160 H (39-117) U/L Troponin I High Sens 16.3 D (<3.5-35.0) ng/L B-Natriuretic Peptide 412 H (<100) pg/mL Total Protein 5.8 L (6.5-8.0) g/dL Albumin 2.3 L (3.5-5.0) g/dL Lipase 36 (8-78) U/L COVID-19 (POWER) (Negative) COVID-19 Clin Com Influenza Type A (RAY) (Negative) Influenza Type B (RAY) (Negative) Influenza A & B Note 11/29/21 11/29/21 11/29/21 Range/Units 09:11 09:12 09:12 WBC 9.6 (4.8-10.8) X10*3/uL RBC 3.91 L (4.60-5.80) X10*6/uL Hgb 10.5 L (14.0-18.0) g/dl Hct 33.7 L (42.0-52.0) % MCV 86.2 (80.0-98.0) fL MCH 26.9 L (27.0-33.0) pg MCHC 31.2 (31.0-36.0) g/dl RDW 16.1 H (11.0-16.0) % Plt Count 301 (160-400) X10*3/uL MPV 9.5 (9.4-12.4) fL Immature Gran % (Auto) 0.3 (0.0-0.4) % Neut % (Auto) 77.3 H (45-73) % Lymph % (Auto) 9.0 L (20-40) % Bradford % (Auto) 11.0 (2-11) % Eos % (Auto) 1.9 (0-4) % Baso % (Auto) 0.5 (0-2) % Lymph # (Auto) 0.9 L (1.2-4.9) X10*3/uL Bradford # (Auto) 1.1 (0.1-1.2) X10*3/uL Eos # (Auto) 0.2 (0.0-0.4) X10*3/uL Baso # (Auto) 0.1 (0.0-0.2) X10*3/uL Abs Immat Gran (auto) 0.03 (0.00-0.03) X10*3/uL Absolute Neuts (auto) 7.4 (2.0-8.3) x10*3/uL Absolute Nucleated RBC 0.000 (0.0-0.012) X10*3/uL Nucleated RBC % (auto) 0.0 (0.0-0.2) /100WBC PT (9.9-13.0) SEC INR (0.9-1.1) VBG pH (7.32-7.43) VBG pCO2 mmHg VBG pO2 mmHg VBG HCO3 (22-26) mmol/L VBG O2 Saturation % VBG Base Excess mmol/L Sodium (135-145) mmol/L Potassium (3.3-5.1) mmol/L Chloride (96-108) mmol/L Carbon Dioxide (22-29) mmol/L Anion Gap (12-20) BUN (9-16) mg/dL Creatinine (0.5-1.4) mg/dL Estim Creat Clear Calc Estimated GFR Random Glucose (60-115) mg/dL Lactic Acid (0.5-2.0) mmol/L Calcium (8.4-10.2) mg/dL Magnesium (1.6-2.6) mg/dL Total Bilirubin (0.0-1.0) mg/dL AST (5-37) U/L ALT (0-40) U/L Alkaline Phosphatase (39-117) U/L Troponin I High Sens (<3.5-35.0) ng/L B-Natriuretic Peptide (<100) pg/mL Total Protein (6.5-8.0) g/dL Albumin (3.5-5.0) g/dL Lipase (8-78) U/L COVID-19 (POWER) Negative (Negative) COVID-19 Clin Com See Note Influenza Type A (RAY) Negative (Negative) Influenza Type B (RAY) Negative (Negative) Influenza A & B Note See Note 11/29/21 11/29/21 Range/Units 09:12 13:56 WBC (4.8-10.8) X10*3/uL RBC (4.60-5.80) X10*6/uL Hgb (14.0-18.0) g/dl Hct (42.0-52.0) % MCV (80.0-98.0) fL MCH (27.0-33.0) pg MCHC (31.0-36.0) g/dl RDW (11.0-16.0) % Plt Count (160-400) X10*3/uL MPV (9.4-12.4) fL Immature Gran % (Auto) (0.0-0.4) % Neut % (Auto) (45-73) % Lymph % (Auto) (20-40) % Bradford % (Auto) (2-11) % Eos % (Auto) (0-4) % Baso % (Auto) (0-2) % Lymph # (Auto) (1.2-4.9) X10*3/uL Bradford # (Auto) (0.1-1.2) X10*3/uL Eos # (Auto) (0.0-0.4) X10*3/uL Baso # (Auto) (0.0-0.2) X10*3/uL Abs Immat Gran (auto) (0.00-0.03) X10*3/uL Absolute Neuts (auto) (2.0-8.3) x10*3/uL Absolute Nucleated RBC (0.0-0.012) X10*3/uL Nucleated RBC % (auto) (0.0-0.2) /100WBC PT 22.3 H (9.9-13.0) SEC INR 1.9 H (0.9-1.1) VBG pH (7.32-7.43) VBG pCO2 mmHg VBG pO2 mmHg VBG HCO3 (22-26) mmol/L VBG O2 Saturation % VBG Base Excess mmol/L Sodium (135-145) mmol/L Potassium (3.3-5.1) mmol/L Chloride (96-108) mmol/L Carbon Dioxide (22-29) mmol/L Anion Gap (12-20) BUN (9-16) mg/dL Creatinine (0.5-1.4) mg/dL Estim Creat Clear Calc Estimated GFR Random Glucose (60-115) mg/dL Lactic Acid 1.7 (0.5-2.0) mmol/L Calcium (8.4-10.2) mg/dL Magnesium (1.6-2.6) mg/dL Total Bilirubin (0.0-1.0) mg/dL AST (5-37) U/L ALT (0-40) U/L Alkaline Phosphatase (39-117) U/L Troponin I High Sens (<3.5-35.0) ng/L B-Natriuretic Peptide (<100) pg/mL Total Protein (6.5-8.0) g/dL Albumin (3.5-5.0) g/dL Lipase (8-78) U/L COVID-19 (POWER) (Negative) COVID-19 Clin Com Influenza Type A (RAY) (Negative) Influenza Type B (RAY) (Negative) Influenza A & B Note Imaging Data Chest x-ray: Attestation: I personally reviewed and interpreted this imaging study as follows: My impression: Bilateral infiltrates. Radiologist's impression: EXAMINATION: XR CHEST CLINICAL INFORMATION: Right-sided chest pain. COMPARISON: 11/01/2021 TECHNIQUE: Frontal view of the chest was obtained. FINDINGS: Mild patchy bilateral interstitial infiltrate may reflect pneumonia and does appear? worse. Heart size borderline with normal caliber pulmonary vessels. XR/XR chest 1V IMPRESSION: Bilateral infiltrates likely reflect pneumonia. Dictated By: Marc Mccann MD Signed By: Electronically signed by Marc Mccann MD 11/29/[address] scan - abdomen: Attestation: I personally reviewed and interpreted this imaging study as follows: My impression: Acites. Radiologist's impression: EXAMINATION: CT ABDOMEN AND PELVIS WITHOUT CONTRAST? CLINICAL INFORMATION: Right-sided abdominal pain? COMPARISON: Ultrasound abdomen dated 11/01/2021? TECHNIQUE: Multidetector volumetric imaging was performed from the superior aspect of the liver through the pubic symphysis. Sagittal and coronal reformatted images were obtained on the technologist's workstation.? This CT examination was performed using dose optimization techniques as appropriate, variously including the following: *Automated exposure control *Adjustment of mA and/or kV according to patient size (this includes techniques or standardized protocols for targeted exams where dose is matched to indication/reason for exam; i.e. extremities or head) *Use of iterative reconstruction technique DLP: 1010 mGy-cm FINDINGS: LUNG BASES: There are small bibasilar effusions left greater than right. Coronary artery calcifications are noted. There is mild pericardial thickening. LIVER, GALLBLADDER, AND BILIARY TREE: Mild perihepatic ascites. Liver is prominent and demonstrates mild fatty change but there are no focal lesions. There is no intrahepatic biliary dilatation. The gallbladder is surgically absent.? PANCREAS: Unremarkable.? SPLEEN: Mild perisplenic ascites. Spleen slightly prominent. Vascular calcifications are noted in the splenic hilum.? ADRENAL GLANDS: Unremarkable.? KIDNEYS AND URETERS: Extensive renal vascular calcification noted. No suspicious mass, or hydronephrosis or perinephric collection.? BLADDER: Unremarkable.? GASTROINTESTINAL TRACT: There is no bowel obstruction or right or left lower quadrant inflammatory change.? ABDOMINAL WALL: Induration in the subcutaneous fat noted likely reflect anasarca. There is a small amount of ascites in the abdominal cavity. There is slight induration in the upper abdomen and mesenteric fat surrounding the celiac axis and SMA vascular pedicles. The study is performed without IV contrast.? LYMPH NODES: Normal. VASCULAR: Extensive vascular calcifications are noted. Is the patient diabetic? IV contrast was not utilized therefore the issue of vascular ischemia cannot be addressed. Mesenteric induration could be the sequela of ischemic change. PELVIC VISCERA: Unremarkable.? OSSEOUS STRUCTURES: There is a moderate to advanced compression fracture observed T12. Chronicity uncertain but this may be recent.? CT/CT abdomen pelvis wo con IMPRESSION: Ascites. Prominent liver and spleen. Extensive vascular calcifications with mesenteric edema noted.? ? Fleischner guidelines were followed. Dictated By: Marc Mccann MD Signed By: Electronically signed by Marc Mccann MD 11/29/[address] scan - head: Attestation: I personally reviewed and interpreted this imaging study as follows: My impression: No acute process. Radiologist's impression: EXAMINATION: CT HEAD WITHOUT CONTRAST CLINICAL INFORMATION: Dizziness. History of stroke? COMPARISON: Prior CT head 09/08/2021 TECHNIQUE: Contiguous axial imaging was performed from the skull base to vertex without intravenous administration of contrast. This CT examination was performed using dose optimization techniques as appropriate, variously including the following: *Automated exposure control *Adjustment of mA and/or kV according to patient size (this includes techniques or standardized protocols for targeted exams where dose is matched to indication/reason for exam; i.e. extremities or head) *Use of iterative reconstruction technique DLP: 739 mGy-cm FINDINGS: Evidence of an old left occipital infarct again observed. There is prominence to the sulci and ventricles with involutional change observed but no hemorrhage, mass, mass effect or extra-axial collection. Calvarium is intact. CT/CT head/brain wo con IMPRESSION: No acute intracranial pathology. Dictated By: Marc Mccann MD Signed By: Electronically signed by Marc Mccann MD 11/29/21 1114 ECG Data Attestation: I personally reviewed and interpreted this ECG as follows: Prior ECG tracings: available for review Interpretation: Vent. Rate: 066 BPM ? ? Atrial Rate: 000 BPM P-R Int: 000 ms? QRS Dur: 088 ms QT Int: 730 ms ? ? ? P-R-T Axes: 000 -42 024 degrees QTc Int: 765 ms ? Atrial fibrillation with premature ventricular or aberrantly conducted complexes Left axis deviation Low voltage QRS Inferior infarct (cited on or before 25-JUL-2014) Cannot rule out Anteroseptal infarct (cited on or before 17-AUG-2014) Abnormal ECG When compared with ECG of 01-NOV-2021 08:40, Nonspecific T wave abnormality now evident in Anterior leads QT has lengthened DD/ 0908 Critical Care Time Critical Care Time Critical Care Time: Yes Total Critical Care Time: 30 Attestation: I spent 30 minutes of Critical Care Time with this patient. This does not include time spent on separately reported billable procedures. Discharge Plan Discharge Clinical Impression: Pneumonia, Hypoxia Patient Disposition: Admitted As Inpatient Prescriptions: No Action atorvastatin 80 mg tablet 1 tab PO BEDTIME 0RF metoprolol succinate 25 mg tablet extended release 24 hr 1 tab PO DAILY 0RF isosorbide mononitrate 60 mg tablet extended release 24 hr 1 tab PO DAILY 0RF torsemide 100 mg tablet 1 tab PO BIDWM 0RF amitriptyline 50 mg tablet 1 tab PO BEDTIME Qty: 0 0RF warfarin 2.5 mg Tablet 5 mg PO LU@1800 0RF warfarin 2.5 mg Tablet 2.5 mg PO MOTUWETHFRSA@1800 0RF amlodipine [Norvasc] 10 mg Tablet 10 mg PO DAILY 0RF torsemide 20 mg tablet 40 mg PO BID PRN (Reason: fluid retention) 0RF omeprazole 40 mg capsule,delayed release(DR/EC) 1 cap PO DAILY 0RF potassium chloride 20 mEq tablet,ER particles/crystals 2 tab PO BID 0RF tamsulosin 0.4 mg capsule 2 cap PO DAILY 0RF Lantus Solostar U-100 Insulin 100 unit/mL (3 mL) insulin pen 15 unit subcut BEDTIME 0RF (DME) pen needle, diabetic [BD Ultra-Fine Short Pen Needle] 31 gauge x 5/16 needle See Rx Instructions ea subcut DAILY Qty: 1200 0RF Rx Instructions: As directed Print Language: Swedish
--- NOTE | 2021-11-29 08:45 | ECG_ITS ---
Test Reason : dyspnea Blood Pressure : / mmHG Vent. Rate : 066 BPM Atrial Rate : 000 BPM P-R Int : 000 ms QRS Dur : 088 ms QT Int : 730 ms P-R-T Axes : 000 -42 024 degrees QTc Int : 765 ms Atrial fibrillation with premature ventricular or aberrantly conducted complexes Left axis deviation Low voltage QRS Inferior infarct (cited on or before 25-JUL-2014) Cannot rule out Anteroseptal infarct (cited on or before 17-AUG-2014) Abnormal ECG When compared with ECG of 01-NOV-2021 08:40, Nonspecific T wave abnormality now evident in Anterior leads QT has lengthened Referred By: Brooklyn Engle Electronically Signed By:KAYCE LANGLEY MD
[2021-11-29 09:15] VITALS: PULSE 68; O2SAT 98
[2021-11-29 09:16] LABS: Venous Blood Gas Refer to POC result
[2021-11-29 09:17] LABS: VBG Base Excess -0.3 mmol/L; VBG HCO3 24 mmol/L (22-26); VBG pCO2 41 mmHg; VBG pH 7.38 (7.32-7.43); VBG pO2 51 mmHg
--- NOTE | 2021-11-29 09:17 | PC.NURSE ---
Pt reports right sided abd pain with vomiting yesterday. Pt also reports increasing weight gain and abd distention, abd distended, firm. Increased SOB, 02 dependent at home on 2lpm via nc. BLE discolored, no swelling. NSR on tele, rate 60s. IV established and labs sent.
[2021-11-29 09:29] LABS: MANUAL DIFF FLAG NO
[2021-11-29 09:33] LABS: Basophils Absolute Auto 0.1 X10*3/uL (0.0-0.2); Basophils Percent Auto 0.5 % (0-2); Eosinophils Absolute Auto 0.2 X10*3/uL (0.0-0.4); Eosinophils Percent Auto 1.9 % (0-4); Hematocrit 33.7 % (42.0-52.0); Hemoglobin 10.5 g/dl (14.0-18.0); Imm Gran Abs Auto 0.03 X10*3/uL (0.00-0.03); Imm Gran Pct Auto 0.3 % (0.0-0.4); Lymphocytes Absolute Auto 0.9 X10*3/uL (1.2-4.9); Mean Corpuscular HGB Conc 31.2 g/dl (31.0-36.0); Mean Corpuscular Hemoglobin 26.9 pg (27.0-33.0); Mean Corpuscular Volume 86.2 fL (80.0-98.0); Mean Platelet Volume 9.5 fL (9.4-12.4); Monocytes Absolute Auto 1.1 X10*3/uL (0.1-1.2); Neutrophils Absolute Auto 7.4 x10*3/uL (2.0-8.3); Neutrophils Percent Auto 77.3 % (45-73); Platelet Count 301 X10*3/uL (160-400); Red Blood Count 3.91 X10*6/uL (4.60-5.80); Red Cell Distribution Width 16.1 % (11.0-16.0); White Blood Count 9.6 X10*3/uL (4.8-10.8)
[2021-11-29 09:40] LABS: Lactic Acid 1.7 mmol/L (0.5-2.0)
[2021-11-29 09:43] LABS: COVID-19 Test Negative (Negative); IDNOW Serial# 16C4AD1C
[2021-11-29 09:43] LABS: Influenza A Negative (Negative); Influenza B2 Negative (Negative)
[2021-11-29 09:56] LABS: B Type Natriuretic Peptide 412 pg/mL (<100); Troponin-I High Sensitivity 16.3 ng/L (<3.5-35.0)
[2021-11-29 09:57] LABS: Alanine Aminotransferase 13 U/L (0-40); Albumin Level 2.3 g/dL (3.5-5.0); Alkaline Phosphatase 160 U/L (39-117); Anion Gap 11 (12-20); Aspartate Amino Transferase 18 U/L (5-37); Bilirubin Total 0.8 mg/dL (0.0-1.0); Blood Urea Nitrogen 50 mg/dL (9-16); Calcium 8.2 mg/dL (8.4-10.2); Carbon Dioxide 24 mmol/L (22-29); Chloride 102 mmol/L (96-108); Creatinine Clr Calc Pharmacy 62.2; Estimated Glomerular Filt Rate 45; Glucose Random 406 mg/dL (60-115); Lipase 36 U/L (8-78); Magnesium 1.9 mg/dL (1.6-2.6); Potassium 4.3 mmol/L (3.3-5.1); Sodium 133 mmol/L (135-145); Total Protein 5.8 g/dL (6.5-8.0)
[2021-11-29] MEDS: cefTRIAXone sodium 1 GM in 0.9 % Sodium Chloride 50 ML IV (10:03)
[2021-11-29] MEDS: Azithromycin 500 MG in 0.9 % Sodium Chloride 250 ML 125 MG IV (10:37)
[2021-11-29 10:43] VITALS: BP 138/86; PULSE 76; RESP 20; O2SAT 97
--- NOTE | 2021-11-29 13:17 | PHA.MEDREC ---
Pharmacy Consult ? Medication Reconciliation Pharmacy has completed the medication reconciliation. Patient unsure of medications. Told me Ace or Qi would be able to help me out. Ace reported that all medications are the same as last admission. He reported toresmide is the 100 mg BID and has 20 mg tablet as needed when the PCP want more. He confirmed warfarin dose 5 mg sun 2.5 mg the rest. Patient still on amlodpine, tamsulosin and potassium. Maira Diez, PharmD
[2021-11-29 14:09] LABS: INTERNATIONAL NORM RATIO 1.9 (0.9-1.1); Prothrombin Time 22.3 SEC (9.9-13.0)
[2021-11-29 14:20] LABS: Procalcitonin 0.07 ng/mL
--- NOTE | 2021-11-29 14:32 | PM.IMHP ---
History of Present Illness Date of Service: 11/29/21 Chief Complaint: cough, shortness of breath, abd pain 61yo M with obesity, DARLENE on CPAP and O2 at night, HFrEF [LVEF 30-35% 11/02/21] with CardioMEMS device monitoring, CVA, PVera, CKD3, DM2, HTN who was just admitted here 11/01-11/06/21 for ADHF. He presents with 3 days of worsening dyspnea, cough, and abdominal pain/distension. He was taken to the [facility] ED on 11/27/21 and was sent home with the diagnosis of dehydration . Due to worsening shortness of breath, leg edema, and dizziness, he came to the ED where he was found to be hypoxic with SaO2 of 78 on RA, with diminished breath sounds and abdominal and leg swelling. CXR demonstrated bilateral PNA. He was placed on 3L O2 and given ceftriaxone and azithromycin. Abdominal CT demonstrated ascites and hepatosplenomegaly. Review of Systems Review of Systems: Yes all other systems are reviewed and are negative [facility] Medical History Anasarca Atrial fibrillation CAD (coronary artery disease) Cataract Cholecystectomy planned Chronic a-fib Chronic combined systolic and diastolic congestive heart failure Chronic respiratory failure CKD (chronic kidney disease) stage 3, GFR 30-59 ml/min CVA (cerebral vascular accident) Diabetes Gross hematuria Heart attack HTN (hypertension) Hyperlipidemia Neuropathy DARLENE on CPAP Permanent atrial fibrillation Polycythemia vera Pulmonary hypertension Toe amputee Urinary retention with incomplete bladder emptying Family History Father Diabetes Hx of cancer antigen 125 (CA-125) measurement Mother Diabetes Brother Diabetes Hx of cancer antigen 125 (CA-125) measurement Surgical History History of cholecystectomy Social History Household Members: Caregiver 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 Housing: House Do you presently have visiting nurse or other home services: No Alcohol intake: former Patient Tobacco Use Status: Never used Tobacco Use of substances other than those prescribed or required for medical reasons: No Advance Directives: Yes Advance Directives on File: Yes Advance Directives Date on File: 09/15/21 service: No Current occupational status: disabled Meds Allergies Allergy/AdvReac Type Severity Reaction Status Date / Time No Known Allergies Allergy Unknown NKDA Verified 10/18/21 09:25 Active Medications: Current Medications Acetaminophen (Acetaminophen 325 Mg Tablet) 650 mg PO Q6H PRN PRN Reason: Pain, Mild (Pain Scale 1-3) Amitriptyline HCl (Amitriptyline Hcl 50 Mg Tablet) 50 mg PO BEDTIME ALEM Amlodipine Besylate (Amlodipine Besylate 10 Mg Tablet) 10 mg PO DAILY ALEM; Protocol Atorvastatin Calcium (Atorvastatin Calcium 80 Mg Tablet) 80 mg PO BEDTIME ALEM Dextrose (Dextrose 50 % 25 Gm/50 Ml Syringe) 25 gm IVPUSH Q15M PRN; Protocol PRN Reason: per Hypoglycemia Standing Ord. Glucose (Glucose Gel 15 Gm Gel..Gram.) 15 gm PO Q15M PRN; Protocol PRN Reason: per Hypoglycemia Standing Ord. Ceftriaxone Sodium 1 gm/ (Sodium Chloride) 50 mls @ 100 mls/hr IV Q24H ALEM Doxycycline Hyclate 100 mg/ (Sodium Chloride) 250 mls @ 166.67 mls/hr IV Q12H ALEM Furosemide 200 mg/ Sodium (Chloride) 100 mls @ 5 mls/hr IVCONT .Q20H [facility] Insulin Glargine (Insulin Glargine,Hum.Rec.Anlog 100 Unit/Ml 10 Ml Vial) 15 unit SUBCUT BEDTIME ALEM Insulin Human Lispro (Insulin Lispro 100 Unit/Ml 3 Ml Vial) 0 unit SUBCUT QIDACHS ALEM; Protocol Isosorbide Mononitrate (Isosorbide Mononitrate 60 Mg Tab.Er.24h) 60 mg PO DAILY ALEM; Protocol Metoprolol Succinate (Metoprolol Succinate Er 25 Mg Tab.Er.24h) 25 mg PO DAILY ALEM; Protocol Omeprazole (Omeprazole 40 Mg Capsule.Dr) 40 mg PO DAILY@0630 ALEM Ondansetron HCl (Ondansetron Hcl 4 Mg/2 Ml Vial) 4 mg IVPUSH Q8H PRN PRN Reason: Nausea and Vomiting Pharmacy Consult (Consult Rx Perform Med Rec) 1 each MISCELLANE ONCE PRN PRN Reason: Consult order Potassium Chloride (Potassium Chloride Er 20 Meq Tab.Er.Prt) 40 meq PO BID ALEM Sodium Chloride (0.9 % Sodium Chloride Flush 3 Ml Syringe) 3 ml IVFLUSH QSHIFT [facility] Tamsulosin HCl (Tamsulosin Hcl 0.4 Mg Capsule) 0.8 mg PO DAILY [facility] Warfarin Sodium (Warfarin Sodium 5 Mg Tablet) 5 mg PO Carrillo@1800 [facility] Warfarin Sodium (Warfarin Sodium 2.5 Mg Tablet) 2.5 mg PO MoTuWeThFrSa@1800 [facility] Home Medications Medication Instructions Recorded Confirmed Last Taken Type atorvastatin 80 mg tablet 1 tab PO BEDTIME 05/08/20 11/29/21 10/31/21 History metoprolol succinate 25 mg 1 tab PO DAILY 05/08/20 11/29/21 11/01/21 History tablet,extended release 24 hr isosorbide mononitrate 60 mg 1 tab PO DAILY 07/17/21 11/29/21 11/01/21 History tablet,extended release 24 hr torsemide 100 mg tablet 1 tab PO BIDWM 07/17/21 11/29/21 11/01/21 History insulin glargine 100 unit/mL (3 15 unit SUBCUT BEDTIME 10/06/21 11/29/21 10/31/21 History mL) subcutaneous pen (Lantus Solostar U-100 Insulin) pen needle, diabetic 31 gauge x #1200 ea 10/06/21 10/06/21 Unknown History 11/14 (BD Ultra-Fine Short Pen Needle) amlodipine 10 mg tablet (Norvasc) 10 mg PO DAILY 11/01/21 11/29/21 11/01/21 History warfarin 2.5 mg tablet 2.5 mg PO MOTUWETHFRSA@1800 11/01/21 11/29/21 10/31/21 History warfarin 2.5 mg tablet 5 mg PO CARRILLO@1800 11/01/21 11/29/21 10/30/21 History omeprazole 40 mg capsule,delayed 1 cap PO DAILY 11/29/21 11/29/21 Unknown History release potassium chloride 20 mEq 2 tab PO BID 11/29/21 11/29/21 Unknown History tablet,extended release(part/cryst) tamsulosin 0.4 mg capsule 2 cap PO DAILY 11/29/21 11/29/21 Unknown History torsemide 20 mg tablet 40 mg PO BID PRN 11/29/21 11/29/21 Unknown History Physical Exam Vital Signs and Narrative: Vital Signs: Last Vital Signs Temp 98.2 F 11/29/21 08:32 Pulse 76 05/31/22 10:43 Resp 20 11/29/21 10:43 BP 138/86 11/29/21 10:43 Pulse Ox 97 11/29/21 10:43 BMI result Body Mass Index 32.1 Gen: in mild resp distress HEENT: sclera anicteric, moist mucus membranes Neck: supple, JVD present Lungs: diminished bilaterally Heart: irregularly irregular, no murmurs Abd: obese, distended, fluid wave Ext: 3+ leg edema Skin: warm/well-perfused Neuro: alert and oriented x3, no focal findings Psych: appropriate affect Results Labs CBC and Chem 7: 11/29/21 09:12 11/29/21 09:11 Labs: Laboratory Results - last 24 hr 11/29/21 11/29/21 11/29/21 09:09 09:11 09:11 MCV MCH MCHC RDW Plt Count MPV Immature Gran % (Auto) Neut % (Auto) Lymph % (Auto) Overton % (Auto) Eos % (Auto) Baso % (Auto) Lymph # (Auto) Overton # (Auto) Eos # (Auto) Baso # (Auto) Abs Immat Gran (auto) Absolute Neuts (auto) Absolute Nucleated RBC Nucleated RBC % (auto) PT INR VBG pH 7.38 VBG pCO2 41 VBG pO2 51 VBG HCO3 24 VBG O2 Saturation 72.0 VBG Base Excess -0.3 Anion Gap 11 L Estim Creat Clear Calc 62.2 Estimated GFR 45 Random Glucose 406 H* Lactic Acid Calcium 8.2 L Magnesium 1.9 Total Bilirubin 0.8 AST 18 ALT 13 Alkaline Phosphatase 160 H Troponin I High Sens 16.3 D B-Natriuretic Peptide 412 H Total Protein 5.8 L Albumin 2.3 L Lipase 36 Procalcitonin COVID-19 (POWER) COVID-19 Clin Com Influenza Type A (RAY) Influenza Type B (RAY) Influenza A & B Note 11/29/21 11/29/21 11/29/21 09:11 09:11 09:12 MCV 86.2 MCH 26.9 L MCHC 31.2 RDW 16.1 H Plt Count 301 MPV 9.5 Immature Gran % (Auto) 0.3 Neut % (Auto) 77.3 H Lymph % (Auto) 9.0 L Overton % (Auto) 11.0 Eos % (Auto) 1.9 Baso % (Auto) 0.5 Lymph # (Auto) 0.9 L Overton # (Auto) 1.1 Eos # (Auto) 0.2 Baso # (Auto) 0.1 Abs Immat Gran (auto) 0.03 Absolute Neuts (auto) 7.4 Absolute Nucleated RBC 0.000 Nucleated RBC % (auto) 0.0 PT INR VBG pH VBG pCO2 VBG pO2 VBG HCO3 VBG O2 Saturation VBG Base Excess Anion Gap Estim Creat Clear Calc Estimated GFR Random Glucose Lactic Acid Calcium Magnesium Total Bilirubin AST ALT Alkaline Phosphatase Troponin I High Sens B-Natriuretic Peptide Total Protein Albumin Lipase Procalcitonin 0.07 COVID-19 (POWER) Negative COVID-19 Clin Com See Note Influenza Type A (RAY) Influenza Type B (RAY) Influenza A & B Note 11/29/21 11/29/21 11/29/21 09:12 09:12 13:56 MCV MCH MCHC RDW Plt Count MPV Immature Gran % (Auto) Neut % (Auto) Lymph % (Auto) Overton % (Auto) Eos % (Auto) Baso % (Auto) Lymph # (Auto) Overton # (Auto) Eos # (Auto) Baso # (Auto) Abs Immat Gran (auto) Absolute Neuts (auto) Absolute Nucleated RBC Nucleated RBC % (auto) PT 22.3 H INR 1.9 H VBG pH VBG pCO2 VBG pO2 VBG HCO3 VBG O2 Saturation VBG Base Excess Anion Gap Estim Creat Clear Calc Estimated GFR Random Glucose Lactic Acid 1.7 Calcium Magnesium Total Bilirubin AST ALT Alkaline Phosphatase Troponin I High Sens B-Natriuretic Peptide Total Protein Albumin Lipase Procalcitonin COVID-19 (POWER) COVID-19 Clin Com Influenza Type A (RAY) Negative Influenza Type B (RAY) Negative Influenza A & B Note See Note Imaging Radiologist's Impressions: Impressions Chest X-Ray 11/29/21 08:58 IMPRESSION: Bilateral infiltrates likely reflect pneumonia. Head CT 11/29/21 10:01 IMPRESSION: No acute intracranial pathology. Abdomen/Pelvis CT 11/29/21 10:03 IMPRESSION: Ascites. Prominent liver and spleen. Extensive vascular calcifications with mesenteric edema noted. Fleischner guidelines were followed. Assessment and Plan (1) Pneumonia: Status: Acute (2) Hypoxia: Status: Acute (3) Chronic combined systolic and diastolic congestive heart failure: Status: Acute Plan 61yo M with obesity, DARLENE on CPAP and O2 at night, HFrEF [LVEF 30-35% 11/02/21] with CardioMEMS device monitoring, CVA, PVera, CKD3, DM2, HTN who was just admitted here 11/01-11/06/21 for ADHF, presenting with 3 days of worsening dyspnea, cough, abdominal pain/distension, and dizziness. Found to be hypoxic with pneumonia as well as volume overload. # PNA - admit to [facility], give ceftriaxone + doxycycline, follow BCx, trend PCT. Covid-19 and influenza negative. # [id number] hypoxic resp failure - wean O2 as tolerated, uses 2L at night with CPAP # ADHF # ascites - Systolic and diastolic HF with significant R-sided component as well. Will diurese with IV furosemide infusion, monitor BMP/Mg and trend BNP + I/Os + weights. Consult Cardiology and request CardioMEMS reading. # DARLENE # pHTN - CPAP at night # HTN -continue amlodipine, Imduri, metoprolol, diureses as above # hx CVA - continue warfarin - cotninue atorvastatin # AF - continue metoprolol - continue warfarin # DM2 - basal/bolus insulin # VTE ppx - warfarin # code - full I anticipate that the patient will stay at least 2 midnights in hospital due to the above reasons. It is not reasonable or safe to care for them in a less acute setting. Quality Stroke Does the patient have a stroke diagnosis?: No VTE Prior VTE?: No VTE Risk Level:: Medical - moderate - high VTE Device Contraindication: N/A - Device Ordered VTE Drug Contraindication: N/A - Med Ordered
[2021-11-29 16:06] VITALS: BP 131/78; PULSE 68; RESP 14; O2SAT 98
[2021-11-29] MEDS: Furosemide 200 MG in 0.9 % Sodium Chloride 80 ML IVCONT (16:10)
[2021-11-29 16:43] LABS: Appearance Urine CLEAR; Color Urine YELLOW; Glucose Urine UA NEG (NEG); Leukocyte Esterase Urine NEG (NEG); Nitrite Urine NEG (NEG); PH 5.5 (5.0-8.0); UACC Culture Trigger NO; Urine Blood 1+ (NEG); Urine Ketones NEG (NEG); Urine Protein NEG (NEG-TRACE)
[2021-11-29 16:50] LABS: WBC Urine 0-2 /HPF (0-4)
[2021-11-29 16:57] LABS: Troponin-I High Sensitivity 17.2 ng/L (<3.5-35.0)
[2021-11-29] MEDS: Acetaminophen 325 MG TABLET 650 MG PO (17:42)
[2021-11-29] MEDS: Doxycycline Hyclate 100 MG in 0.9 % Sodium Chloride 250 ML 166.67 MG IV (17:44)
--- NOTE | 2021-11-29 17:47 | PC.NURSE ---
pt a&ox3, vss, c/o 03/11 right side/headache pain. medicated per provider order w PRN tylenol, medicated w doxycycline, furosemide paused due to incompatibility. insulin held pending dinner.
[2021-11-29] MEDS: Insulin Lispro 100 UNIT/ML 3 ML VIAL SUBCUT ×2 (19:09→21:58)
--- NOTE | 2021-11-29 19:14 | PC.NURSE ---
pharmacy contacted re lili, will send up.
[2021-11-29] MEDS: Warfarin Sodium 2.5 MG TABLET PO (19:54)
--- NOTE | 2021-11-29 19:56 | PC.NURSE ---
medicated per provider order.
--- NOTE | 2021-11-29 20:38 | MHC.CM.PN ---
IMM 11/29. HCP on file. 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 Pt lives with Ace and his . Uses a cane, walker, Wheelchair, CPAP and home oxygen. Has WMEC. Fully vax/boosted Pfizer (08/19/20, 09/10/20 & 04/23/21). [place] was [place] [facility] ADHF. D/C plan per pt is home with existing services. Pt does not want STR. Pt will arrange transportation home. CM to follow for d/c needs.
[2021-11-29 21:31] LABS: Glucose, Whole Blood 227 mg/dL (60-115)
[2021-11-29 21:43] LABS: Glucose, Whole Blood 190 mg/dL (60-115)
[2021-11-29] MEDS: Atorvastatin Calcium 80 MG TABLET PO (21:57)
[2021-11-29] MEDS: Insulin Glargine,Hum.rec.anlog 100 UNIT/ML 10 ML VIAL 15 UNIT SUBCUT (21:57)
[2021-11-29] MEDS: Potassium Chloride ER 20 MEQ TAB.ER.PRT 40 MEQ PO (21:57)
[2021-11-29] MEDS: Amitriptyline HCl 50 MG TABLET PO (22:00)
[2021-11-29 22:02] VITALS: BP 136/78; PULSE 71; RESP 18; O2SAT 95
[2021-11-29 23:32] VITALS: PULSE 71; RESP 16; O2SAT 94
[2021-11-30] VITALS (8 sets, daily range): BP systolic 104–160; BP diastolic 58–85; PULSE 64–83; RESP 13–18; TEMP 36.3–36.6; O2SAT 90–99
--- NOTE | 2021-11-30 00:45 | PC.NURSE ---
contacted provider re pt right-sided pain. pt currently sleeping - held medication.
[2021-11-30] MEDS: Doxycycline Hyclate 100 MG in 0.9 % Sodium Chloride 250 ML 166.67 MG IV ×2 (03:38→14:59)
[2021-11-30 04:55] LABS: MANUAL DIFF FLAG NO
[2021-11-30 04:59] LABS: Basophils Absolute Auto 0.1 X10*3/uL (0.0-0.2); Basophils Percent Auto 1.2 % (0-2); Eosinophils Absolute Auto 0.3 X10*3/uL (0.0-0.4); Eosinophils Percent Auto 3.8 % (0-4); Hematocrit 32.3 % (42.0-52.0); Hemoglobin 10.1 g/dl (14.0-18.0); Imm Gran Abs Auto 0.04 X10*3/uL (0.00-0.03); Imm Gran Pct Auto 0.5 % (0.0-0.4); Lymphocytes Percent Auto 12.7 % (20-40); Mean Corpuscular HGB Conc 31.3 g/dl (31.0-36.0); Mean Corpuscular Hemoglobin 27.6 pg (27.0-33.0); Mean Corpuscular Volume 88.3 fL (80.0-98.0); Mean Platelet Volume 9.4 fL (9.4-12.4); Monocytes Percent Auto 12.1 % (2-11); Neutrophils Absolute Auto 5.6 x10*3/uL (2.0-8.3); Neutrophils Percent Auto 69.7 % (45-73); Platelet Count 278 X10*3/uL (160-400); Red Blood Count 3.66 X10*6/uL (4.60-5.80); Red Cell Distribution Width 16.4 % (11.0-16.0); White Blood Count 8.1 X10*3/uL (4.8-10.8)
[2021-11-30 05:07] LABS: Prothrombin Time 22.6 SEC (9.9-13.0)
[2021-11-30 05:18] LABS: Anion Gap 10 (12-20); Blood Urea Nitrogen 46 mg/dL (9-16); Carbon Dioxide 27 mmol/L (22-29); Chloride 106 mmol/L (96-108); Creatinine Clr Calc Pharmacy 77.5; Estimated Glomerular Filt Rate 59; Glucose Random 124 mg/dL (60-115); Magnesium 2.1 mg/dL (1.6-2.6); Sodium 139 mmol/L (135-145)
[2021-11-30 05:24] LABS: B Type Natriuretic Peptide 329 pg/mL (<100)
--- NOTE | 2021-11-30 05:46 | PC.NURSE ---
pt had a urine out of 1200.
[2021-11-30 07:10] LABS: Glucose, Whole Blood 118 mg/dL (60-115)
[2021-11-30] MEDS: Omeprazole 40 MG CAPSULE.DR PO (07:11)
[2021-11-30] MEDS: Metoprolol Succinate ER 25 MG TAB.ER.24H PO (09:33)
[2021-11-30] MEDS: amLODIPine Besylate 10 MG TABLET PO (09:33)
[2021-11-30] MEDS: Tamsulosin HCL 0.4 MG CAPSULE 0.8 MG PO (09:33)
[2021-11-30] MEDS: Isosorbide Mononitrate 60 MG TAB.ER.24H PO (09:33)
[2021-11-30] MEDS: cefTRIAXone sodium 1 GM in 0.9 % Sodium Chloride 50 ML IV (09:34)
[2021-11-30] MEDS: Potassium Chloride ER 20 MEQ TAB.ER.PRT 40 MEQ PO ×2 (09:34→20:55)
--- NOTE | 2021-11-30 09:34 | PM.CNCAR ---
History of Present Illness History of Present Illness Date of Service: 11/30/21 Requesting physician: Ryann Hough Consult reason: congestive heart failure Chief complaint: PNA ADHF Narrative: I was requested to see Godfrey in cardiology consultation today for decompensated congestive heart failure. He is a 61-year-old male with advanced heart failure with systolic dysfunction with LVEF of 30-35% by last echocardiogram here with significant pulmonary hypertension significantly elevated right atrial pressures with CardioMEMS device. He has been difficult to manage as outpatient with persistently elevated pulmonary artery diastolic pressure and has been managed by his medicaid collection specialist in [place]. He has been on very high dose of torsemide 100 mg b.i.d. which she says he has been taking faithfully. He also has been very faithful with his diet with salt intake as well as fluid intake. He said over the last few days he has been having increasing symptoms of shortness of breath increasing leg edema abdominal girth. No clear mention of weight gain. On Sunday because of the symptoms he ventricular [facility] and was discharged home without any admission saying that he was dehydrated. Subsequently continued to get worse Sunday he had significant shortness of breath any present Sunday to the hospital here at [facility] very was noted to be significantly hypoxic and was noted to have significant fluid overload with anasarca as well as the sidedness. Also suspected possibly to have bilateral infiltrates suggestive of pneumonia. Was admitted. Started on IV antibiotics as well as IV Lasix drip. His output has not been well recorded in the chart. His BNP was in the mid 300 range. He has history of chronic atrial fibrillation rate controlled. Over the last few days no CardioMEMS readings have been performed as outpatient. He is not aware of his CardioMEMS reading overall. He said his breathing is better but continues remains somewhat short of breath. Currently using oxygen supplementation. Denies any palpitations, lightheadedness, syncope. Denies any bleeding issues. He is on warfarin for oral anticoagulation. Denies any chest pain. Denies any recent fever or cough productive of phlegm. Review of Systems Constitutional: Constitutional: Reports no additional constitutional complaints, Denies body ache(s), Denies chills and Denies fever(s) Eyes: Eyes: Reports no additional eye complaints Cardiovascular: Cardiovascular: Reports Abdominal Distension, Denies chest pain, Reports leg edema, Denies lightheadedness, Denies Loss of Consciousness, Denies palpitations, Reports dyspnea and Reports orthopnea Respiratory: Respiratory: Reports no additional respiratory complaints and Reports dyspnea Gastrointestinal: Gastrointestinal: Reports no additional gastrointestinal complaints Genitourinary: Genitourinary: Reports no additional male genitourinary complaints Musculoskeletal: Musculoskeletal: Reports no additional musculoskeletal complaints Neurologic: Reports system reviewed and no additional complaints, except as documented Psychiatric: Psychiatric: Reports no additional psychiatric complaints Endocrine: Endocrine: Reports no additional endocrine complaints and Denies palpitations Hematologic/Lymphatic: Hematologic/Lymphatic: Reports no additional hematologic/lymphatic complaints Allergic/Immunologic: Allergic/Immunologic: Reports no additional allergic/immunologic complaints PMFSH Past Medical History Medical History Anasarca Atrial fibrillation CAD (coronary artery disease) Cataract Cholecystectomy planned Chronic a-fib Chronic combined systolic and diastolic congestive heart failure Chronic respiratory failure CKD (chronic kidney disease) stage 3, GFR 30-59 ml/min CVA (cerebral vascular accident) Diabetes Gross hematuria Heart attack HTN (hypertension) Hyperlipidemia Neuropathy DARLENE on CPAP Permanent atrial fibrillation Polycythemia vera Pulmonary hypertension Toe amputee Urinary retention with incomplete bladder emptying Family History Family History Father Diabetes Hx of cancer antigen 125 (CA-125) measurement Mother Diabetes Brother Diabetes Hx of cancer antigen 125 (CA-125) measurement Surgical History Surgical History History of cholecystectomy Social History Social History Household Members: Caregiver 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 Housing: House Do you presently have visiting nurse or other home services: No Alcohol intake: former Patient Tobacco Use Status: Never used Tobacco Use of substances other than those prescribed or required for medical reasons: No Advance Directives: Yes Advance Directives on File: Yes Advance Directives Date on File: 09/15/21 service: No Current occupational status: disabled Meds Allergies Allergy/AdvReac Type Severity Reaction Status Date / Time No Known Allergies Allergy Unknown NKDA Verified 10/18/21 09:25 Active Medications: Current Medications Acetaminophen (Acetaminophen 325 Mg Tablet) 650 mg PO Q6H PRN PRN Reason: Pain, Mild (Pain Scale 1-3) Last Admin: 11/29/21 17:42 Dose: 650 mg Documented by: Amitriptyline HCl (Amitriptyline Hcl 50 Mg Tablet) 50 mg PO BEDTIME [facility] Last Admin: 11/29/21 22:00 Dose: 50 mg Documented by: Amlodipine Besylate (Amlodipine Besylate 10 Mg Tablet) 10 mg PO DAILY [facility]; Protocol Last Admin: 11/30/21 09:33 Dose: 10 mg Documented by: Atorvastatin Calcium (Atorvastatin Calcium 80 Mg Tablet) 80 mg PO BEDTIME [facility] Last Admin: 11/29/21 21:57 Dose: 80 mg Documented by: Dextrose (Dextrose 50 % 25 Gm/50 Ml Syringe) 25 gm IVPUSH Q15M PRN; Protocol PRN Reason: per Hypoglycemia Standing Ord. Empagliflozin (Empagliflozin 10 Mg Tablet) 10 mg PO DAILY [facility] Glucose (Glucose Gel 15 Gm Gel..Gram.) 15 gm PO Q15M PRN; Protocol PRN Reason: per Hypoglycemia Standing Ord. Ceftriaxone Sodium 1 gm/ (Sodium Chloride) 50 mls @ 100 mls/hr IV Q24H [facility] Last Admin: 11/30/21 09:34 Dose: 100 mls/hr Documented by: Doxycycline Hyclate 100 mg/ (Sodium Chloride) 250 mls @ 166.67 mls/hr IV Q12H [facility] Last Infusion: 11/30/21 05:08 Dose: Infused Documented by: Furosemide 200 mg/ Sodium (Chloride) 100 mls @ 5 mls/hr IVCONT .Q20H [facility] Last Infusion: 11/30/21 05:43 Dose: 10 mg/hr, 5 mls/hr Documented by: Insulin Glargine (Insulin Glargine,Hum.Rec.Anlog 100 Unit/Ml 10 Ml Vial) 15 unit SUBCUT BEDTIME [facility] Last Admin: 11/29/21 21:57 Dose: 15 unit Documented by: Insulin Human Lispro (Insulin Lispro 100 Unit/Ml 3 Ml Vial) 0 unit SUBCUT QIDACHS [facility]; Protocol Last Admin: 11/30/21 07:11 Dose: Not Given Documented by: Isosorbide Mononitrate (Isosorbide Mononitrate 60 Mg Tab.Er.24h) 60 mg PO DAILY [facility]; Protocol Last Admin: 11/30/21 09:33 Dose: 60 mg Documented by: Metolazone (Metolazone 2.5 Mg Tablet) 2.5 mg PO ONCE ONE Stop: 11/30/21 09:32 Metoprolol Succinate (Metoprolol Succinate Er 25 Mg Tab.Er.24h) 25 mg PO DAILY [facility]; Protocol Last Admin: 11/30/21 09:33 Dose: 25 mg Documented by: Omeprazole (Omeprazole 40 Mg Capsule.Dr) 40 mg PO DAILY@0630 [facility] Last Admin: 11/30/21 07:11 Dose: 40 mg Documented by: Ondansetron HCl (Ondansetron Hcl 4 Mg/2 Ml Vial) 4 mg IVPUSH Q8H PRN PRN Reason: Nausea and Vomiting Pharmacy Consult (Consult Rx Perform Med Rec) 1 each MISCELLANE ONCE PRN PRN Reason: Consult order Potassium Chloride (Potassium Chloride Er 20 Meq Tab.Er.Prt) 40 meq PO BID [facility] Last Admin: 11/30/21 09:34 Dose: 40 meq Documented by: Sodium Chloride (0.9 % Sodium Chloride Flush 3 Ml Syringe) 3 ml IVFLUSH QSHIFT [facility] Last Admin: 11/30/21 07:11 Dose: Not Given Documented by: Spironolactone (Spironolactone 25 Mg Tablet) 12.5 mg PO DAILY [facility]; Protocol Tamsulosin HCl (Tamsulosin Hcl 0.4 Mg Capsule) 0.8 mg PO DAILY [facility] Last Admin: 11/30/21 09:33 Dose: 0.8 mg Documented by: Warfarin Sodium (Warfarin Sodium 5 Mg Tablet) 5 mg PO Carrillo@1800 [facility] Warfarin Sodium (Warfarin Sodium 2.5 Mg Tablet) 2.5 mg PO MoTuWeThFrSa@1800 [facility] Last Admin: 11/29/21 19:54 Dose: 2.5 mg Documented by: Home Medications Medication Instructions Recorded Confirmed Last Taken Type atorvastatin 80 mg tablet 1 tab PO BEDTIME 05/08/20 11/29/21 10/31/21 History metoprolol succinate 25 mg 1 tab PO DAILY 05/08/20 11/29/21 11/01/21 History tablet,extended release 24 hr isosorbide mononitrate 60 mg 1 tab PO DAILY 07/17/21 11/29/21 11/01/21 History tablet,extended release 24 hr torsemide 100 mg tablet 1 tab PO BIDWM 07/17/21 11/29/21 11/01/21 History insulin glargine 100 unit/mL (3 15 unit SUBCUT BEDTIME 10/06/21 11/29/21 10/31/21 History mL) subcutaneous pen (Lantus Solostar U-100 Insulin) pen needle, diabetic 31 gauge x #1200 ea 10/06/21 10/06/21 Unknown History 16 (BD Ultra-Fine Short Pen Needle) amlodipine 10 mg tablet (Norvasc) 10 mg PO DAILY 11/01/21 11/29/21 11/01/21 History warfarin 2.5 mg tablet 2.5 mg PO MOTUWETHFRSA@1800 11/01/21 11/29/21 10/31/21 History warfarin 2.5 mg tablet 5 mg PO CARRILLO@1800 11/01/21 11/29/21 10/30/21 History omeprazole 40 mg capsule,delayed 1 cap PO DAILY 11/29/21 11/29/21 Unknown History release potassium chloride 20 mEq 2 tab PO BID 11/29/21 11/29/21 Unknown History tablet,extended release(part/cryst) tamsulosin 0.4 mg capsule 2 cap PO DAILY 11/29/21 11/29/21 Unknown History torsemide 20 mg tablet 40 mg PO BID PRN 11/29/21 11/29/21 Unknown History Physical Exam Vital Signs: Vital Signs: Last Vital Signs Temp 97.9 F 11/30/21 07:03 Pulse 71 11/30/21 09:32 Resp 18 11/30/21 09:32 BP 139/79 11/30/21 09:32 Pulse Ox 99 11/30/21 09:32 BMI result Body Mass Index 32.1 Const: General: cooperative, in distress mild and respiratory and ill appearing Nutritional Appearance: obese Orientation/consciousness: patient oriented x3 HEENT: Head: Yes normocephalic and Yes atraumatic Neck: Neck: Yes trachea midline, Yes supple and Yes JVD Chest: Chest palpation & inspection: normal inspection of the chest Resp: Effort & Inspection: normal respiratory effort Auscultation: clear to auscultation bilaterally Cardio: Jugular venous distension: JVD Rhythm: abnormal rhythm irregularly irregular Heart sounds: S1 normal heart sound present, S2 normal heart sound present, no click, no gallops, no murmurs and no rubs GI: Inspection: Yes distended and Yes obesity Auscultation: normal bowel sounds Skin: General skin exam: no rashes or lesions noted Neuro: General: patient oriented x3 and no focal motor deficits Extrem: General: No clubbing, No cyanosis and Yes edema Objective Labs and Meds Result diagrams: 11/30/21 04:02 11/30/21 04:02 Lab results: Laboratory Results - last 24 hr 11/29/21 11/29/21 11/29/21 09:09 09:11 09:11 WBC RBC Hgb Hct MCV MCH MCHC RDW Plt Count MPV Immature Gran % (Auto) Neut % (Auto) Lymph % (Auto) Chester % (Auto) Eos % (Auto) Baso % (Auto) Lymph # (Auto) Chester # (Auto) Eos # (Auto) Baso # (Auto) Abs Immat Gran (auto) Absolute Neuts (auto) Absolute Nucleated RBC Nucleated RBC % (auto) PT INR VBG pH 7.38 VBG pCO2 41 VBG pO2 51 VBG HCO3 24 VBG O2 Saturation 72.0 VBG Base Excess -0.3 Sodium 133 L Potassium 4.3 Chloride 102 Carbon Dioxide 24 Anion Gap 11 L BUN 50 H Creatinine 1.57 H Estim Creat Clear Calc 62.2 Estimated GFR 45 POC Glucose Random Glucose 406 H* Lactic Acid Calcium 8.2 L Magnesium 1.9 Total Bilirubin 0.8 AST 18 ALT 13 Alkaline Phosphatase 160 H Troponin I High Sens 16.3 D B-Natriuretic Peptide 412 H Total Protein 5.8 L Albumin 2.3 L Lipase 36 Procalcitonin Urine Color Urine Appearance Urine pH Ur Specific Alfred Urine Protein Urine Glucose (UA) Urine Ketones Urine Blood Urine Nitrite Ur Leukocyte Esterase Urine RBC Urine WBC Ur Squamous Epith Cells Urine Bacteria COVID-19 (POWER) COVID-19 Clin Com Influenza Type A (RAY) Influenza Type B (RAY) Influenza A & B Note 11/29/21 11/29/21 11/29/21 09:11 09:11 09:12 WBC RBC Hgb Hct MCV MCH MCHC RDW Plt Count MPV Immature Gran % (Auto) Neut % (Auto) Lymph % (Auto) Chester % (Auto) Eos % (Auto) Baso % (Auto) Lymph # (Auto) Chester # (Auto) Eos # (Auto) Baso # (Auto) Abs Immat Gran (auto) Absolute Neuts (auto) Absolute Nucleated RBC Nucleated RBC % (auto) PT INR VBG pH VBG pCO2 VBG pO2 VBG HCO3 VBG O2 Saturation VBG Base Excess Sodium Potassium Chloride Carbon Dioxide Anion Gap BUN Creatinine Estim Creat Clear Calc Estimated GFR POC Glucose Random Glucose Lactic Acid Calcium Magnesium Total Bilirubin AST ALT Alkaline Phosphatase Troponin I High Sens B-Natriuretic Peptide Total Protein Albumin Lipase Procalcitonin 0.07 Urine Color Urine Appearance Urine pH Ur Specific Alfred Urine Protein Urine Glucose (UA) Urine Ketones Urine Blood Urine Nitrite Ur Leukocyte Esterase Urine RBC Urine WBC Ur Squamous Epith Cells Urine Bacteria COVID-19 (POWER) Negative COVID-19 Clin Com See Note Influenza Type A (RAY) Negative Influenza Type B (RAY) Negative Influenza A & B Note See Note 11/29/21 11/29/21 11/29/21 09:12 13:56 16:31 WBC RBC Hgb Hct MCV MCH MCHC RDW Plt Count MPV Immature Gran % (Auto) Neut % (Auto) Lymph % (Auto) Chester % (Auto) Eos % (Auto) Baso % (Auto) Lymph # (Auto) Chester # (Auto) Eos # (Auto) Baso # (Auto) Abs Immat Gran (auto) Absolute Neuts (auto) Absolute Nucleated RBC Nucleated RBC % (auto) PT 22.3 H INR 1.9 H VBG pH VBG pCO2 VBG pO2 VBG HCO3 VBG O2 Saturation VBG Base Excess Sodium Potassium Chloride Carbon Dioxide Anion Gap BUN Creatinine Estim Creat Clear Calc Estimated GFR POC Glucose Random Glucose Lactic Acid 1.7 Calcium Magnesium Total Bilirubin AST ALT Alkaline Phosphatase Troponin I High Sens B-Natriuretic Peptide Total Protein Albumin Lipase Procalcitonin Urine Color YELLOW Urine Appearance CLEAR Urine pH 5.5 Ur Specific Alfred 1.010 Urine Protein NEG Urine Glucose (UA) NEG Urine Ketones NEG Urine Blood 1+ H Urine Nitrite NEG Ur Leukocyte Esterase NEG Urine RBC 5-9 H Urine WBC 0-2 Ur Squamous Epith Cells NONE Urine Bacteria NONE COVID-19 (POWER) COVID-19 Clin Com Influenza Type A (RAY) Influenza Type B (RAY) Influenza A & B Note 11/29/21 11/29/21 11/29/21 16:32 18:17 21:28 WBC RBC Hgb Hct MCV MCH MCHC RDW Plt Count MPV Immature Gran % (Auto) Neut % (Auto) Lymph % (Auto) Chester % (Auto) Eos % (Auto) Baso % (Auto) Lymph # (Auto) Chester # (Auto) Eos # (Auto) Baso # (Auto) Abs Immat Gran (auto) Absolute Neuts (auto) Absolute Nucleated RBC Nucleated RBC % (auto) PT INR VBG pH VBG pCO2 VBG pO2 VBG HCO3 VBG O2 Saturation VBG Base Excess Sodium Potassium Chloride Carbon Dioxide Anion Gap BUN Creatinine Estim Creat Clear Calc Estimated GFR POC Glucose 190 H 227 H Random Glucose Lactic Acid Calcium Magnesium Total Bilirubin AST ALT Alkaline Phosphatase Troponin I High Sens 17.2 B-Natriuretic Peptide Total Protein Albumin Lipase Procalcitonin Urine Color Urine Appearance Urine pH Ur Specific Alfred Urine Protein Urine Glucose (UA) Urine Ketones Urine Blood Urine Nitrite Ur Leukocyte Esterase Urine RBC Urine WBC Ur Squamous Epith Cells Urine Bacteria COVID-19 (POWER) COVID-19 Clin Com Influenza Type A (RAY) Influenza Type B (RAY) Influenza A & B Note 11/30/21 11/30/21 11/30/21 04:02 04:02 04:02 WBC 8.1 RBC 3.66 L Hgb 10.1 L Hct 32.3 L MCV 88.3 MCH 27.6 MCHC 31.3 RDW 16.4 H Plt Count 278 MPV 9.4 Immature Gran % (Auto) 0.5 H Neut % (Auto) 69.7 Lymph % (Auto) 12.7 L Chester % (Auto) 12.1 H Eos % (Auto) 3.8 Baso % (Auto) 1.2 Lymph # (Auto) 1.0 L Chester # (Auto) 1.0 Eos # (Auto) 0.3 Baso # (Auto) 0.1 Abs Immat Gran (auto) 0.04 H Absolute Neuts (auto) 5.6 Absolute Nucleated RBC 0.000 Nucleated RBC % (auto) 0.0 PT INR VBG pH VBG pCO2 VBG pO2 VBG HCO3 VBG O2 Saturation VBG Base Excess Sodium 139 Potassium 4.0 Chloride 106 Carbon Dioxide 27 Anion Gap 10 L BUN 46 H Creatinine 1.26 Estim Creat Clear Calc 77.5 Estimated GFR 59 POC Glucose Random Glucose 124 H D Lactic Acid Calcium 8.0 L Magnesium 2.1 Total Bilirubin AST ALT Alkaline Phosphatase Troponin I High Sens B-Natriuretic Peptide 329 H Total Protein Albumin Lipase Procalcitonin Urine Color Urine Appearance Urine pH Ur Specific Alfred Urine Protein Urine Glucose (UA) Urine Ketones Urine Blood Urine Nitrite Ur Leukocyte Esterase Urine RBC Urine WBC Ur Squamous Epith Cells Urine Bacteria COVID-19 (POWER) COVID-19 Clin Com Influenza Type A (RAY) Influenza Type B (RAY) Influenza A & B Note 11/30/21 11/30/21 04:03 07:02 WBC RBC Hgb Hct MCV MCH MCHC RDW Plt Count MPV Immature Gran % (Auto) Neut % (Auto) Lymph % (Auto) Chester % (Auto) Eos % (Auto) Baso % (Auto) Lymph # (Auto) Chester # (Auto) Eos # (Auto) Baso # (Auto) Abs Immat Gran (auto) Absolute Neuts (auto) Absolute Nucleated RBC Nucleated RBC % (auto) PT 22.6 H INR 2.0 H VBG pH VBG pCO2 VBG pO2 VBG HCO3 VBG O2 Saturation VBG Base Excess Sodium Potassium Chloride Carbon Dioxide Anion Gap BUN Creatinine Estim Creat Clear Calc Estimated GFR POC Glucose 118 H Random Glucose Lactic Acid Calcium Magnesium Total Bilirubin AST ALT Alkaline Phosphatase Troponin I High Sens B-Natriuretic Peptide Total Protein Albumin Lipase Procalcitonin Urine Color Urine Appearance Urine pH Ur Specific Alfred Urine Protein Urine Glucose (UA) Urine Ketones Urine Blood Urine Nitrite Ur Leukocyte Esterase Urine RBC Urine WBC Ur Squamous Epith Cells Urine Bacteria COVID-19 (POWER) COVID-19 Clin Com Influenza Type A (RAY) Influenza Type B (RAY) Influenza A & B Note Imaging Radiologist's impression: Impressions Chest X-Ray 11/29/21 08:58 IMPRESSION: Bilateral infiltrates likely reflect pneumonia. Head CT 11/29/21 10:01 IMPRESSION: No acute intracranial pathology. Abdomen/Pelvis CT 11/29/21 10:03 IMPRESSION: Ascites. Prominent liver and spleen. Extensive vascular calcifications with mesenteric edema noted. Fleischner guidelines were followed. Assessment and Plan (1) Decompensated heart failure: Status: Acute Decompensated congestive heart failure in this middle-aged man with advanced heart failure syndrome in the past which has been difficult to manage despite high does diuretics as outpatient. He denies any noncompliance with medications or dietary indiscretion. Unknown causes of his decompensation probably related to worsening heart failure status, question pneumonia. I think this is most suggestive of pulmonary edema or other pneumonia. He has no fever or other signs of infection. However will leave that decision up to the hospitalist team. I would continue IV diuresis with Lasix drip, better intake and output chart needs to be pursued. Will also give him a additional dose of metolazone 2.5 mg. Will check a CardioMEMS reading. Start him on Jardiance 10 mg as well as Aldactone 12.5 mg for his heart failure syndrome. Strict intake and output chart. Continue monitor his renal function as well electrolytes. Overall prognosis is guarded. Currently rate with atrial fibrillation is well controlled. Continue full oral anticoagulation, currently on warfarin. Maintain target INR between 2 and 3. Will continue to follow with you. Procedures Date of Service Date of Service: 11/30/21
[2021-11-30] MEDS: Spironolactone 25 MG TABLET 12.5 MG PO (10:44)
[2021-11-30] MEDS: metOLazone 2.5 MG TABLET PO (10:45)
[2021-11-30] MEDS: Empagliflozin 10 MG TABLET PO (10:45)
[2021-11-30] MEDS: Furosemide 200 MG in 0.9 % Sodium Chloride 80 ML IVCONT (11:43)
[2021-11-30] MEDS: Insulin Lispro 100 UNIT/ML 3 ML VIAL SUBCUT ×3 (11:44→20:56)
[2021-11-30 11:49] LABS: Glucose, Whole Blood 177 mg/dL (60-115)
--- NOTE | 2021-11-30 12:58 | P.PNIM_ITS ---
Subjective Subjective Date of Service: 11/30/21 Interval History: Still very swollen. Weight up about 20 lb. Dyspnea improving. Review of Systems Review of Systems: Yes all other systems are reviewed and are negative Physical Exam Vital Signs: Vital Signs: Last Vital Signs Temp 97.9 F 11/30/21 07:03 Pulse 70 11/30/21 10:45 Resp 18 11/30/21 09:32 BP 133/78 11/30/21 10:45 Pulse Ox 99 11/30/21 09:32 BMI result Body Mass Index 32.1 Gen: NAD HEENT: sclera anicteric, moist mucus membranes Neck: supple, JVD present Lungs: diminished bilaterally Heart: irregularly irregular, no murmurs Abd: obese, distended, fluid wave Ext: 3+ leg edema Skin: warm/well-perfused Neuro: alert and oriented x3, no focal findings Psych: appropriate affect Objective Data Active Medications Acetaminophen (Acetaminophen 325 Mg Tablet) 650 mg PO Q6H PRN PRN Reason: Pain, Mild (Pain Scale 1-3) Last Admin: 11/29/21 17:42 Dose: 650 mg Documented by: DOC Amitriptyline HCl (Amitriptyline Hcl 50 Mg Tablet) 50 mg PO BEDTIME [facility] Last Admin: 11/29/21 22:00 Dose: 50 mg Documented by: MINAL Amlodipine Besylate (Amlodipine Besylate 10 Mg Tablet) 10 mg PO DAILY [facility]; Protocol Last Admin: 11/30/21 09:33 Dose: 10 mg Documented by: ALLYN Atorvastatin Calcium (Atorvastatin Calcium 80 Mg Tablet) 80 mg PO BEDTIME [facility] Last Admin: 11/29/21 21:57 Dose: 80 mg Documented by: MINAL Dextrose (Dextrose 50 % 25 Gm/50 Ml Syringe) 25 gm IVPUSH Q15M PRN; Protocol PRN Reason: per Hypoglycemia Standing Ord. Empagliflozin (Empagliflozin 10 Mg Tablet) 10 mg PO DAILY [facility] Last Admin: 11/30/21 10:45 Dose: 10 mg Documented by: ALLYN Glucose (Glucose Gel 15 Gm Gel..Gram.) 15 gm PO Q15M PRN; Protocol PRN Reason: per Hypoglycemia Standing Ord. Ceftriaxone Sodium 1 gm/ (Sodium Chloride) 50 mls @ 100 mls/hr IV Q24H [facility] Last Infusion: 11/30/21 10:04 Dose: 0 mls/hr Documented by: ALLYN Doxycycline Hyclate 100 mg/ (Sodium Chloride) 250 mls @ 166.67 mls/hr IV Q12H [facility] Last Infusion: 11/30/21 05:08 Dose: 0 mls/hr Documented by: ALLYN Furosemide 200 mg/ Sodium (Chloride) 100 mls @ 5 mls/hr IVCONT .Q20H [facility] Last Admin: 11/30/21 11:43 Dose: 10 mg/hr, 5 mls/hr Documented by: DARY Insulin Glargine (Insulin Glargine,Hum.Rec.Anlog 100 Unit/Ml 10 Ml Vial) 15 unit SUBCUT BEDTIME [facility] Last Admin: 11/29/21 21:57 Dose: 15 unit Documented by: MINAL Comments: Insulin Human Lispro (Insulin Lispro 100 Unit/Ml 3 Ml Vial) 0 unit SUBCUT QIDACHS [facility], [facility]; Protocol Last Admin: 11/30/21 11:44 Dose: 2 unit Documented by: DARY Isosorbide Mononitrate (Isosorbide Mononitrate 60 Mg Tab.Er.24h) 60 mg PO DAILY [facility]; Protocol Last Admin: 11/30/21 09:33 Dose: 60 mg Documented by: ALLYN Metoprolol Succinate (Metoprolol Succinate Er 25 Mg Tab.Er.24h) 25 mg PO DAILY [facility]; Protocol Last Admin: 11/30/21 09:33 Dose: 25 mg Documented by: ALLYN Omeprazole (Omeprazole 40 Mg Capsule.) 40 mg PO DAILY@0630 [facility] Last Admin: 11/30/21 07:11 Dose: 40 mg Documented by: ALLYN Ondansetron HCl (Ondansetron Hcl 4 Mg/2 Ml Vial) 4 mg IVPUSH Q8H PRN PRN Reason: Nausea and Vomiting Pharmacy Consult (Consult Rx Perform Med Rec) 1 each MISCELLANE ONCE PRN PRN Reason: Consult order Potassium Chloride (Potassium Chloride Er 20 Meq Tab.Er.Prt) 40 meq PO BID [facility] Last Admin: 11/30/21 09:34 Dose: 40 meq Documented by: ALLYN Sodium Chloride (0.9 % Sodium Chloride Flush 3 Ml Syringe) 3 ml IVFLUSH QSHIFT [facility] Last Admin: 11/30/21 07:11 Dose: Not Given Documented by: ALLYN Non-Admin Reason: IV Running Spironolactone (Spironolactone 25 Mg Tablet) 12.5 mg PO DAILY [facility]; Protocol Last Admin: 11/30/21 10:44 Dose: 12.5 mg Documented by: ALLYN Tamsulosin HCl (Tamsulosin Hcl 0.4 Mg Capsule) 0.8 mg PO DAILY [facility] Last Admin: 11/30/21 09:33 Dose: 0.8 mg Documented by: ALLYN Warfarin Sodium (Warfarin Sodium 5 Mg Tablet) 5 mg PO Carrillo@1800 [facility] Warfarin Sodium (Warfarin Sodium 2.5 Mg Tablet) 2.5 mg PO MoTuWeThFrSa@1800 [facility] Last Admin: 11/29/21 19:54 Dose: 2.5 mg Documented by: DOC Labs CBC & Chem 7: 11/30/21 04:02 11/30/21 04:02 Labs: Laboratory Results - last 24 hr 11/29/21 11/29/21 11/29/21 09:09 09:11 13:56 MCV MCH MCHC RDW Plt Count MPV Immature Gran % (Auto) Neut % (Auto) Lymph % (Auto) [place] % (Auto) Eos % (Auto) Baso % (Auto) Lymph # (Auto) [place] # (Auto) Eos # (Auto) Baso # (Auto) Abs Immat Gran (auto) Absolute Neuts (auto) Absolute Nucleated RBC Nucleated RBC % (auto) PT 22.3 H INR 1.9 H VBG pH 7.38 VBG pCO2 41 VBG pO2 51 VBG HCO3 24 VBG O2 Saturation 72.0 VBG Base Excess -0.3 Anion Gap Estim Creat Clear Calc Estimated GFR POC Glucose Random Glucose Calcium Magnesium Troponin I High Sens B-Natriuretic Peptide Procalcitonin 0.07 Urine Color Urine Appearance Urine pH Ur Specific [place] Urine Protein Urine Glucose (UA) Urine Ketones Urine Blood Urine Nitrite Ur Leukocyte Esterase Urine RBC Urine WBC Ur Squamous Epith Cells Urine Bacteria 11/29/21 11/29/21 11/29/21 16:31 16:32 18:17 MCV MCH MCHC RDW Plt Count MPV Immature Gran % (Auto) Neut % (Auto) Lymph % (Auto) [place] % (Auto) Eos % (Auto) Baso % (Auto) Lymph # (Auto) [place] # (Auto) Eos # (Auto) Baso # (Auto) Abs Immat Gran (auto) Absolute Neuts (auto) Absolute Nucleated RBC Nucleated RBC % (auto) PT INR VBG pH VBG pCO2 VBG pO2 VBG HCO3 VBG O2 Saturation VBG Base Excess Anion Gap Estim Creat Clear Calc Estimated GFR POC Glucose 190 H Random Glucose Calcium Magnesium Troponin I High Sens 17.2 B-Natriuretic Peptide Procalcitonin Urine Color YELLOW Urine Appearance CLEAR Urine pH 5.5 Ur Specific [place] 1.010 Urine Protein NEG Urine Glucose (UA) NEG Urine Ketones NEG Urine Blood 1+ H Urine Nitrite NEG Ur Leukocyte Esterase NEG Urine RBC 5-9 H Urine WBC 0-2 Ur Squamous Epith Cells NONE Urine Bacteria NONE 11/29/21 11/30/21 11/30/21 21:28 04:02 04:02 MCV 88.3 MCH 27.6 MCHC 31.3 RDW 16.4 H Plt Count 278 MPV 9.4 Immature Gran % (Auto) 0.5 H Neut % (Auto) 69.7 Lymph % (Auto) 12.7 L [place] % (Auto) 12.1 H Eos % (Auto) 3.8 Baso % (Auto) 1.2 Lymph # (Auto) 1.0 L [place] # (Auto) 1.0 Eos # (Auto) 0.3 Baso # (Auto) 0.1 Abs Immat Gran (auto) 0.04 H Absolute Neuts (auto) 5.6 Absolute Nucleated RBC 0.000 Nucleated RBC % (auto) 0.0 PT INR VBG pH VBG pCO2 VBG pO2 VBG HCO3 VBG O2 Saturation VBG Base Excess Anion Gap Estim Creat Clear Calc Estimated GFR POC Glucose 227 H Random Glucose Calcium Magnesium Troponin I High Sens B-Natriuretic Peptide 329 H Procalcitonin Urine Color Urine Appearance Urine pH Ur Specific [place] Urine Protein Urine Glucose (UA) Urine Ketones Urine Blood Urine Nitrite Ur Leukocyte Esterase Urine RBC Urine WBC Ur Squamous Epith Cells Urine Bacteria 11/30/21 11/30/21 11/30/21 04:02 04:03 07:02 MCV MCH MCHC RDW Plt Count MPV Immature Gran % (Auto) Neut % (Auto) Lymph % (Auto) [place] % (Auto) Eos % (Auto) Baso % (Auto) Lymph # (Auto) [place] # (Auto) Eos # (Auto) Baso # (Auto) Abs Immat Gran (auto) Absolute Neuts (auto) Absolute Nucleated RBC Nucleated RBC % (auto) PT 22.6 H INR 2.0 H VBG pH VBG pCO2 VBG pO2 VBG HCO3 VBG O2 Saturation VBG Base Excess Anion Gap 10 L Estim Creat Clear Calc 77.5 Estimated GFR 59 POC Glucose 118 H Random Glucose 124 H D Calcium 8.0 L Magnesium 2.1 Troponin I High Sens B-Natriuretic Peptide Procalcitonin Urine Color Urine Appearance Urine pH Ur Specific [place] Urine Protein Urine Glucose (UA) Urine Ketones Urine Blood Urine Nitrite Ur Leukocyte Esterase Urine RBC Urine WBC Ur Squamous Epith Cells Urine Bacteria 11/30/21 11:30 MCV MCH MCHC RDW Plt Count MPV Immature Gran % (Auto) Neut % (Auto) Lymph % (Auto) [place] % (Auto) Eos % (Auto) Baso % (Auto) Lymph # (Auto) [place] # (Auto) Eos # (Auto) Baso # (Auto) Abs Immat Gran (auto) Absolute Neuts (auto) Absolute Nucleated RBC Nucleated RBC % (auto) PT INR VBG pH VBG pCO2 VBG pO2 VBG HCO3 VBG O2 Saturation VBG Base Excess Anion Gap Estim Creat Clear Calc Estimated GFR POC Glucose 177 H Random Glucose Calcium Magnesium Troponin I High Sens B-Natriuretic Peptide Procalcitonin Urine Color Urine Appearance Urine pH Ur Specific [place] Urine Protein Urine Glucose (UA) Urine Ketones Urine Blood Urine Nitrite Ur Leukocyte Esterase Urine RBC Urine WBC Ur Squamous Epith Cells Urine Bacteria Microbiology Microbiology Results: Microbiology 11/29/21 09:11 Blood Culture - Preliminary Blood - Venous No growth after 24 hours. 11/29/21 09:12 Blood Culture - Preliminary Blood - Venous No growth after 24 hours. Assessment and Plan (1) Decompensated heart failure: Status: Acute Plan hospital d#2 61yo M with obesity, DARLENE on CPAP and O2 at night, HFrEF [LVEF 30-35% 11/02/21] with CardioMEMS device monitoring, CVA, PVera, CKD3, DM2, HTN who was just admitted here 11/01-11/06/21 for ADHF presenting with 3 days of worsening dyspnea, cough, abdominal pain/distension, and dizziness found to be hypoxic with possible pneumonia as well as volume overload. # PNA - d#2 ceftriaxone + doxycycline, follow BCx, trend PCT but if continues to be low, d/c ABX tomorrow; CXR findings could be due to CHF # [id number] hypoxic resp failure - wean O2 as tolerated, uses 2L at night with CPAP # ADHF # ascites - systolic and diastolic HF with significant R-sided component as well - mean PA pressure 48 - continue IV furosemide drip, Cardiology consulted, added empagliflozin + spironolactone, and also got 1 dose of metolazone - 1.6L thus far - monitor BMP/Mg, trend BNP + I/O, weights # DARLENE # pHTN - CPAP at night # HTN -continue amlodipine, Imdur, metoprolol, diuresis above # hx CVA - continue warfarin - cotninue atorvastatin # AF - continue metoprolol - continue warfarin # DM2 - basal/bolus insulin # VTE ppx - warfarin In my clinical judgment, the patient requires continued hospitalization for the following reasons: IV diuresis Quality Stroke Does the patient have a stroke diagnosis?: No VTE Prior VTE?: No VTE Risk Level:: Medical - moderate - high VTE Device Contraindication: N/A - Device Ordered VTE Drug Contraindication: N/A - Med Ordered
[2021-11-30] MEDS: 0.9 % Sodium Chloride Flush 3 ML SYRINGE IVFLUSH (14:59)
--- NOTE | 2021-11-30 15:23 | PC.NURSE ---
report to ROGER Feliz. pt to ED overflow
--- NOTE | 2021-11-30 16:44 | PC.NURSE ---
Assumed care of pt in overflow, A&Ox4, NSR on monitor, no complaints of pain at this time. Lasix drip running as per MAR orders. VSS, call wagner within reach. Will continue to monitor
[2021-11-30 17:54] LABS: Glucose, Whole Blood 222 mg/dL (60-115)
[2021-11-30] MEDS: Warfarin Sodium 2.5 MG TABLET PO (20:19)
[2021-11-30 20:50] LABS: Glucose, Whole Blood 213 mg/dL (60-115)
[2021-11-30] MEDS: Atorvastatin Calcium 80 MG TABLET PO (20:56)
[2021-11-30] MEDS: Insulin Glargine,Hum.rec.anlog 100 UNIT/ML 10 ML VIAL 15 UNIT SUBCUT (21:06)
[2021-11-30] MEDS: Amitriptyline HCl 50 MG TABLET PO (21:12)
--- NOTE | 2021-11-30 21:54 | PC.NURSE ---
Attempted to all report to [phone], no response will try again later.
[2021-11-30 23:05] LABS: Glucose, Whole Blood 195 mg/dL (60-115)
[2021-12-01] VITALS (8 sets, daily range): BP systolic 103–165; BP diastolic 62–83; PULSE 67–79; RESP 17–90; TEMP 36.2–37.1; O2SAT 88–98
[2021-12-01] MEDS: Doxycycline Hyclate 100 MG in 0.9 % Sodium Chloride 250 ML 166.67 MG IV (05:11)
[2021-12-01 06:05] LABS: INTERNATIONAL NORM RATIO 2.2 (0.9-1.1)
[2021-12-01 06:27] LABS: B Type Natriuretic Peptide 205 pg/mL (<100)
[2021-12-01 07:05] LABS: Anion Gap 10 (12-20); Blood Urea Nitrogen 43 mg/dL (9-16); Calcium 8.6 mg/dL (8.4-10.2); Carbon Dioxide 30 mmol/L (22-29); Chloride 103 mmol/L (96-108); Creatinine Clr Calc Pharmacy 72.4; Estimated Glomerular Filt Rate 54; Glucose Random 179 mg/dL (60-115); Magnesium 2.1 mg/dL (1.6-2.6); Potassium 4.1 mmol/L (3.3-5.1); Sodium 139 mmol/L (135-145)
[2021-12-01 07:28] LABS: Glucose, Whole Blood 160 mg/dL (60-115)
[2021-12-01] MEDS: amLODIPine Besylate 10 MG TABLET PO (08:28)
[2021-12-01] MEDS: Potassium Chloride ER 20 MEQ TAB.ER.PRT 40 MEQ PO ×2 (08:28→20:56)
[2021-12-01] MEDS: Omeprazole 40 MG CAPSULE.DR PO (08:28)
[2021-12-01] MEDS: Metoprolol Succinate ER 25 MG TAB.ER.24H PO (08:28)
[2021-12-01] MEDS: Spironolactone 25 MG TABLET 12.5 MG PO (08:29)
[2021-12-01] MEDS: Isosorbide Mononitrate 60 MG TAB.ER.24H PO (08:29)
[2021-12-01] MEDS: Empagliflozin 10 MG TABLET PO (08:29)
[2021-12-01] MEDS: Insulin Lispro 100 UNIT/ML 3 ML VIAL SUBCUT ×4 (08:29→20:56)
[2021-12-01] MEDS: Tamsulosin HCL 0.4 MG CAPSULE 0.8 MG PO (08:29)
[2021-12-01] MEDS: 0.9 % Sodium Chloride Flush 3 ML SYRINGE IVFLUSH ×2 (08:29→17:14)
[2021-12-01 08:53] LABS: Procalcitonin 0.06 ng/mL
[2021-12-01] MEDS: Furosemide 200 MG in 0.9 % Sodium Chloride 80 ML IVCONT (09:56)
[2021-12-01] MEDS: cefTRIAXone sodium 1 GM in 0.9 % Sodium Chloride 50 ML IV (10:02)
[2021-12-01 11:04] LABS: Glucose, Whole Blood 159 mg/dL (60-115)
--- NOTE | 2021-12-01 12:15 | PM.PNCARD ---
Subjective Subjective Date of Service: 12/01/21 Principal diagnosis: Decompensated CHF Interval history: Vineet has diuresed over 6 L. He is feeling a lot better. Blood pressure is stable. He is tolerating his current medications diuresis. Creatinine in has increased to 1.3. BNP is down trending. CardioMEMS readings are not available as yet. Denies any other complaints Review of Systems Review of Systems Yes all other systems are reviewed and are negative Physical Exam Vital Signs: Last Vital Signs Temp 97.7 F 12/01/21 11:03 Pulse 77 12/01/21 11:03 Resp 18 12/01/21 11:03 BP 131/72 12/01/21 11:03 Pulse Ox 92 12/01/21 11:03 BMI result Body Mass Index 32.1 Const General: cooperative, comfortable and no acute distress Nutritional Appearance: obese Neck Neck: Yes trachea midline, Yes supple and Yes JVD Resp Effort & Inspection: normal respiratory effort Auscultation: clear to auscultation bilaterally Cardio Jugular venous distension: JVD Rate: regular rate Rhythm: abnormal rhythm irregularly irregular Heart sounds: S1 normal heart sound present and S2 normal heart sound present GI Auscultation: normal bowel sounds Skin General skin exam: no rashes or lesions noted Neuro General: no focal motor deficits Extrem General: No clubbing, No cyanosis and Yes edema Objective Labs and Meds Result diagrams: 11/30/21 04:02 12/01/21 05:25 Lab results: Laboratory Results - last 24 hr 11/30/21 11/30/21 11/30/21 17:50 20:46 23:01 PT INR Sodium Potassium Chloride Carbon Dioxide Anion Gap BUN Creatinine Estim Creat Clear Calc Estimated GFR POC Glucose 222 H 213 H 195 H Random Glucose Calcium Magnesium B-Natriuretic Peptide Procalcitonin 12/01/21 12/01/21 12/01/21 05:25 05:25 05:25 PT 26.0 H INR 2.2 H Sodium 139 Potassium 4.1 Chloride 103 Carbon Dioxide 30 H Anion Gap 10 L BUN 43 H Creatinine 1.35 Estim Creat Clear Calc 72.4 Estimated GFR 54 POC Glucose Random Glucose 179 H D Calcium 8.6 D Magnesium 2.1 B-Natriuretic Peptide 205 H Procalcitonin 12/01/21 12/01/21 12/01/21 05:25 07:21 10:59 PT INR Sodium Potassium Chloride Carbon Dioxide Anion Gap BUN Creatinine Estim Creat Clear Calc Estimated GFR POC Glucose 160 H 159 H Random Glucose Calcium Magnesium B-Natriuretic Peptide Procalcitonin 0.06 Progress Note: A&P Assessment and plan (1) Decompensated heart failure: Status: Acute Assessment and Plan: Advance and difficult to treat decompensated diastolic heart failure in this middle-aged man. Responding well to diuretic therapy. As negative output of greater than 6 L. Continue IV diuresis with Lasix drip. Strict intake and output chart needs to be pursued. Continue to monitor renal function and trend BMP. Will obtain CardioMEMS readings. Continue Jardiance and Aldactone therapy. Overall prognosis is guarded. Heart rate in atrial fibrillation is well controlled. Continue full oral anticoagulation warfarin. Will continue to follow with you Time Spent With Patient Time: Total time spent is greater than 50% in coordination of care (as documented) at patient's floor/unit and/or counseling patient: Progress Note: Quality Stroke Does the patient have a stroke diagnosis?: No Procedures Date of Service Date of Service: 12/01/21
[2021-12-01 15:49] LABS: Glucose, Whole Blood 228 mg/dL (60-115)
--- NOTE | 2021-12-01 16:42 | P.PNIM_ITS ---
Subjective Subjective Date of Service: 12/01/21 Interval History: Swelling improved Dyspnea improved No chest pain No lightheadedness Review of Systems Review of Systems: Yes all other systems are reviewed and are negative Physical Exam Vital Signs: Vital Signs: Last Vital Signs Temp 97.5 F 12/01/21 15:16 Pulse 68 12/01/21 15:16 Resp 90 H 12/01/21 15:16 BP 103/62 12/01/21 15:16 Pulse Ox 90 L 12/01/21 15:16 BMI result Body Mass Index 32.1 Gen: NAD HEENT: sclera anicteric, moist mucus membranes Neck: supple, JVD present Lungs: diminished bilaterally Heart: irregularly irregular, no murmurs Abd: obese, less distended, fluid wave Ext: 2+ leg edema Skin: warm/well-perfused Neuro: alert and oriented x3, no focal findings Psych: appropriate affect Objective Data Active Medications Acetaminophen (Acetaminophen 325 Mg Tablet) 650 mg PO Q6H PRN PRN Reason: Pain, Mild (Pain Scale 1-3) Last Admin: 11/29/21 17:42 Dose: 650 mg Documented by: DOC Amitriptyline HCl (Amitriptyline Hcl 50 Mg Tablet) 50 mg PO BEDTIME [facility] Last Admin: 11/30/21 21:12 Dose: 50 mg Documented by: BHAVIK Amlodipine Besylate (Amlodipine Besylate 10 Mg Tablet) 10 mg PO DAILY [facility]; Protocol Last Admin: 12/01/21 08:28 Dose: 10 mg Documented by: GIANCARLO Atorvastatin Calcium (Atorvastatin Calcium 80 Mg Tablet) 80 mg PO BEDTIME [facility] Last Admin: 11/30/21 20:56 Dose: 80 mg Documented by: BHAVIK Dextrose (Dextrose 50 % 25 Gm/50 Ml Syringe) 25 gm IVPUSH Q15M PRN; Protocol PRN Reason: per Hypoglycemia Standing Ord. Empagliflozin (Empagliflozin 10 Mg Tablet) 10 mg PO DAILY [facility] Last Admin: 12/01/21 08:29 Dose: 10 mg Documented by: GIANCARLO Glucose (Glucose Gel 15 Gm Gel..Gram.) 15 gm PO Q15M PRN; Protocol PRN Reason: per Hypoglycemia Standing Ord. Furosemide 200 mg/ Sodium (Chloride) 100 mls @ 5 mls/hr IVCONT .Q20H [facility] Last Admin: 12/01/21 09:56 Dose: 10 mg/hr, 5 mls/hr Documented by: GIANCARLO Insulin Glargine (Insulin Glargine,Hum.Rec.Anlog 100 Unit/Ml 10 Ml Vial) 15 unit SUBCUT BEDTIME [facility] Last Admin: 11/30/21 21:06 Dose: 15 unit Documented by: BHAVIK Insulin Human Lispro (Insulin Lispro 100 Unit/Ml 3 Ml Vial) 0 unit SUBCUT QID ACHS [facility]; Protocol Last Admin: 12/01/21 12:26 Dose: 2 unit Documented by: GIANCARLO Isosorbide Mononitrate (Isosorbide Mononitrate 60 Mg Tab.Er.24h) 60 mg PO DAILY [facility]; Protocol Last Admin: 12/01/21 08:29 Dose: 60 mg Documented by: GIANCARLO Metoprolol Succinate (Metoprolol Succinate Er 25 Mg Tab.Er.24h) 25 mg PO DAILY [facility]; Protocol Last Admin: 12/01/21 08:28 Dose: 25 mg Documented by: GIANCARLO Omeprazole (Omeprazole 40 Mg Capsule.Dr) 40 mg PO DAILY@0630 [facility] Last Admin: 12/01/21 08:28 Dose: 40 mg Documented by: GIANCARLO Ondansetron HCl (Ondansetron Hcl 4 Mg/2 Ml Vial) 4 mg IVPUSH Q8H PRN PRN Reason: Nausea and Vomiting Pharmacy Consult (Consult Rx Perform Med Rec) 1 each MISCELLANE ONCE PRN PRN Reason: Consult order Potassium Chloride (Potassium Chloride Er 20 Meq Tab.Er.Prt) 40 meq PO BID [facility] Last Admin: 12/01/21 08:28 Dose: 40 meq Documented by: GIANCARLO Sodium Chloride (0.9 % Sodium Chloride Flush 3 Ml Syringe) 3 ml IVFLUSH QSHIFT [facility] Last Admin: 12/01/21 08:29 Dose: 3 ml Documented by: GIANCARLO Spironolactone (Spironolactone 25 Mg Tablet) 12.5 mg PO DAILY [facility]; Protocol Last Admin: 12/01/21 08:29 Dose: 12.5 mg Documented by: GIANCARLO Tamsulosin HCl (Tamsulosin Hcl 0.4 Mg Capsule) 0.8 mg PO DAILY [facility] Last Admin: 12/01/21 08:29 Dose: 0.8 mg Documented by: GIANCARLO Warfarin Sodium (Warfarin Sodium 5 Mg Tablet) 5 mg PO Carrillo@1800 [facility] Warfarin Sodium (Warfarin Sodium 2.5 Mg Tablet) 2.5 mg PO MoTuWeThFrSa@1800 [facility] Last Admin: 11/30/21 20:19 Dose: 2.5 mg Documented by: IGNACIO Labs CBC & Chem 7: 11/30/21 04:02 12/01/21 05:25 Labs: Laboratory Results - last 24 hr 11/30/21 11/30/21 11/30/21 17:50 20:46 23:01 PT INR Anion Gap Estim Creat Clear Calc Estimated GFR POC Glucose 222 H 213 H 195 H Random Glucose Calcium Magnesium B-Natriuretic Peptide Procalcitonin 12/01/21 12/01/21 12/01/21 05:25 05:25 05:25 PT 26.0 H INR 2.2 H Anion Gap 10 L Estim Creat Clear Calc 72.4 Estimated GFR 54 POC Glucose Random Glucose 179 H D Calcium 8.6 D Magnesium 2.1 B-Natriuretic Peptide 205 H Procalcitonin 12/01/21 12/01/21 12/01/21 05:25 07:21 10:59 PT INR Anion Gap Estim Creat Clear Calc Estimated GFR POC Glucose 160 H 159 H Random Glucose Calcium Magnesium B-Natriuretic Peptide Procalcitonin 0.06 12/01/21 15:30 PT INR Anion Gap Estim Creat Clear Calc Estimated GFR POC Glucose 228 H Random Glucose Calcium Magnesium B-Natriuretic Peptide Procalcitonin Microbiology Microbiology Results: Microbiology 11/29/21 09:11 Blood Culture - Preliminary Blood - Venous No growth after 48 hours. 11/29/21 09:12 Blood Culture - Preliminary Blood - Venous No growth after 48 hours. Assessment and Plan (1) Decompensated heart failure: Status: Acute Plan hospital d#3 61yo M with obesity, DARLENE on CPAP and O2 at night, HFrEF [LVEF 30-35% 11/02/21] with CardioMEMS device monitoring, CVA, PVera, CKD3, DM2, HTN who was just admitted here 11/01-11/06/21 for ADHF presenting with 3 days of worsening dyspnea, cough, abdominal pain/distension, and dizziness found to be hypoxic, initially thought to be PNA but more likely pulmonary edema from CHF exacerbation # PNA, not - BCx negative, PCT low x48h, will d/c ceftriaxone + doxycycline; CXR findings due to CHF # [id number] hypoxic resp failure - weaned off O2 during day, uses 2L at night with CPAP # acute decompensated heart failure # ascites - systolic and diastolic HF with significant R-sided component as well - mean PA pressure 48 on CardioMEMS 11/29/21, repeat reading today pending - continue IV furosemide drip, Cardiology following, added empagliflozin + spironolactone, and also got 1 dose of metolazone 11/29/21 - 6.4L thus far - monitor BMP/Mg, trend BNP + I/O, weights # DARLENE # pHTN - CPAP at night # HTN -continue amlodipine, Imdur, metoprolol, diuresis as above # hx CVA - continue warfarin, INR therapeutic - cotninue atorvastatin # AF - continue metoprolol - continue warfarin # DM2 - basal/bolus insulin # VTE ppx - warfarin In my clinical judgment, the patient requires continued hospitalization for the following reasons: IV diuresis Quality Stroke Does the patient have a stroke diagnosis?: No VTE Prior VTE?: No VTE Risk Level:: Medical - moderate - high VTE Device Contraindication: N/A - Device Ordered VTE Drug Contraindication: N/A - Med Ordered
[2021-12-01] MEDS: Warfarin Sodium 2.5 MG TABLET PO (17:12)
[2021-12-01 20:42] LABS: Glucose, Whole Blood 181 mg/dL (60-115)
[2021-12-01] MEDS: Amitriptyline HCl 50 MG TABLET PO (20:56)
[2021-12-01] MEDS: Atorvastatin Calcium 80 MG TABLET PO (20:56)
[2021-12-01] MEDS: Insulin Glargine,Hum.rec.anlog 100 UNIT/ML 10 ML VIAL 15 UNIT SUBCUT (20:56)
[2021-12-02] VITALS (8 sets, daily range): BP systolic 100–122; BP diastolic 56–73; PULSE 62–80; RESP 16–20; TEMP 36.1–37; O2SAT 80–94
[2021-12-02] MEDS: Furosemide 200 MG in 0.9 % Sodium Chloride 80 ML IVCONT (06:34)
[2021-12-02 06:53] LABS: Anion Gap 13 (12-20); Blood Urea Nitrogen 44 mg/dL (9-16); Calcium 8.6 mg/dL (8.4-10.2); Carbon Dioxide 31 mmol/L (22-29); Chloride 100 mmol/L (96-108); Creatinine Clr Calc Pharmacy 58.5; Estimated Glomerular Filt Rate 42; Glucose Random 115 mg/dL (60-115); Magnesium 2.2 mg/dL (1.6-2.6); Potassium 4.8 mmol/L (3.3-5.1); Sodium 139 mmol/L (135-145)
[2021-12-02 06:56] LABS: B Type Natriuretic Peptide 217 pg/mL (<100)
[2021-12-02 07:07] LABS: Prothrombin Time 23.5 SEC (9.9-13.0)
[2021-12-02 07:23] LABS: Glucose, Whole Blood 114 mg/dL (60-115)
[2021-12-02] MEDS: Empagliflozin 10 MG TABLET PO (10:12)
[2021-12-02] MEDS: amLODIPine Besylate 10 MG TABLET PO (10:12)
[2021-12-02] MEDS: Potassium Chloride ER 20 MEQ TAB.ER.PRT 40 MEQ PO ×2 (10:12→20:06)
[2021-12-02] MEDS: Spironolactone 25 MG TABLET 12.5 MG PO (10:13)
[2021-12-02] MEDS: Isosorbide Mononitrate 60 MG TAB.ER.24H PO (10:14)
[2021-12-02] MEDS: Tamsulosin HCL 0.4 MG CAPSULE 0.8 MG PO (10:14)
[2021-12-02] MEDS: Metoprolol Succinate ER 25 MG TAB.ER.24H PO (10:14)
[2021-12-02 11:02] LABS: Glucose, Whole Blood 177 mg/dL (60-115)
--- NOTE | 2021-12-02 11:14 | PM.PNCARD ---
Subjective Subjective Date of Service: 12/02/21 <KEYANNA Burdick - Last Filed: 12/02/21 11:32> 12/02/21 <René Lopez MD - Last Filed: 12/02/21 11:45> Principal diagnosis: Decompensated CHF <KEYANNA Burdick - Last Filed: 12/02/21 11:32> Interval history: Seen at 1030. Today he reports feeling a lot better . States he slept well. Denies sob, chest pains, palpitations. Reports his leg swelling is gone . Has not been up walking up room. Still on Lasix drip. Creatinine elevated this am, to 1.67. <KEYANNA Burdick - Last Filed: 12/02/21 11:32> Review of Systems Review of Systems as above <KEYANNA Burdick - Last Filed: 12/02/21 11:32> Yes all other systems are reviewed and are negative <KEYANNA Burdick - Last Filed: 12/02/21 11:32> Physical Exam Vital Signs: Last Vital Signs Temp 98.3 F 12/02/21 07:57 Pulse 80 12/02/21 07:57 Resp 20 12/02/21 07:57 BP 122/71 12/02/21 07:57 Pulse Ox 92 12/02/21 07:57 BMI result Body Mass Index 32.1 <KEYANNA Burdick - Last Filed: 12/02/21 11:32> Const General: cooperative, no acute distress, alert and awake <KEYANNA Burdick - Last Filed: 12/02/21 11:32> Orientation/consciousness: patient oriented x3 <KEYANNA Burdick - Last Filed: 12/02/21 11:32> Neck Neck: Yes normal visual inspection <KEYANNA Burdick Last Filed: 12/02/21 11:32> Resp Effort & Inspection: normal respiratory effort, able to speak in complete sentences and not labored <KEYANNA Burdick Last Filed: 12/02/21 11:32> Auscultation: clear to auscultation bilaterally, no crackles, no rales, no rhonchi and no wheezes <Hilda ConwayROBERTOC - Last Filed: 12/02/21 11:32> Cardio Jugular venous distension: JVD present <Hilda ConwayROBERTOC - Last Filed: 12/02/21 11:32> Rate: regular rate <Hilda ConwayROBERTOC - Last Filed: 12/02/21 11:32> Rhythm: abnormal rhythm <Hilda Martinez ManSOFÍA-C - Last Filed: 12/02/21 11:32> Heart sounds: S1 normal heart sound present and S2 normal heart sound present <Hilda ConwaySOFÍA-C - Last Filed: 12/02/21 11:32> GI Other: obeses, rounded, nontender <Hilda Martinez ROBERTO ConwayC - Last Filed: 12/02/21 11:32> Neuro General: patient oriented x3 <Hilda Martinez SOFÍA Conway-C - Last Filed: 12/02/21 11:32> Extrem Other: venous stasis changes to lower legs. <Hilda Martinez SOFÍA Conway-C - Last Filed: 12/02/21 11:32> General: Yes normal to inspection and No edema <Hilda Martinez SOFÍA Conway-C - Last Filed: 12/02/21 11:32> Objective Labs and Meds Result diagrams: : 11/30/21 04:02 12/02/21 06:00 <Hilda Martinez ROBERTO ConwayC - Last Filed: 12/02/21 11:32> Lab results: Laboratory Results - last 24 hr 12/01/21 12/01/21 12/02/21 15:30 19:13 06:00 PT 23.5 H INR 2.0 H Sodium Potassium Chloride Carbon Dioxide Anion Gap BUN Creatinine Estim Creat Clear Calc Estimated GFR POC Glucose 228 H 181 H Random Glucose Calcium Magnesium B-Natriuretic Peptide 12/02/21 12/02/21 12/02/21 06:00 06:00 07:08 PT INR Sodium 139 Potassium 4.8 Chloride 100 Carbon Dioxide 31 H Anion Gap 13 BUN 44 H Creatinine 1.67 H Estim Creat Clear Calc 58.5 Estimated GFR 42 POC Glucose 114 Random Glucose 115 D Calcium 8.6 Magnesium 2.2 B-Natriuretic Peptide 217 H 12/02/21 10:57 PT INR Sodium Potassium Chloride Carbon Dioxide Anion Gap BUN Creatinine Estim Creat Clear Calc Estimated GFR POC Glucose 177 H Random Glucose Calcium Magnesium B-Natriuretic Peptide <KEYANNA Burdick - Last Filed: 12/02/21 11:32> Progress Note: A&P Assessment and plan (1) Decompensated heart failure: Status: Acute <KEYANNA Burdick - Last Filed: 12/02/21 11:32> Assessment and Plan: Hx of systolic and diastolic HF, severe pulmonary HTN. Followed by [facility] as outpt. Admit with decompensated HFrEF. Echo done on 11/02/21 shows EF 30-35%, flattened septum, mod increase in RV size, mild to mod decrease in RV systolic function, mild , LA severely dilated, severe pulm HTN. Has been diuresed with IV Lasix drip over last few days. Fluid balance neg 10 liters since admit. Cardiomems reading obtained yesterday shows PAD 37, SONAL 53. According to Eden at [facility], his PAD goal is low 30s but has been very difficult to control and has had recurrent hospital admssions in last 5 months. This am Cr up to 1.67 from 1.35 yesterday. BNP 412 on admit and down to 217 today. He reports feeling much better overall with ease of breathing and no edema. On exam he does have JVD, which could be a chronic finding from his RHF. Will stop IV Lasix drip and put him back on his Torsedmide 100mg bid. This admit Aldactone and Jardiance have been added to help reduce incidence of recurrent decompensated HF. Check BMP, BNP in am. We will follow <KEYANNA Burdick - Last Filed: 12/02/21 11:32> Hx of systolic and diastolic HF, severe pulmonary HTN. Followed by [facility] as outpt. Admit with decompensated HFrEF. Echo done on 11/02/21 shows EF 30-35%, flattened septum, mod increase in RV size, mild to mod decrease in RV systolic function, mild , LA severely dilated, severe pulm HTN. Has been diuresed with IV Lasix drip over last few days. Fluid balance neg 10 liters since admit. Cardiomems reading obtained yesterday shows PAD 37, SONAL 53. According to Eden at [facility], his PAD goal is low 30s but has been very difficult to control and has had recurrent hospital admssions in last 5 months. This am Cr up to 1.67 from 1.35 yesterday. BNP 412 on admit and down to 217 today. He reports feeling much better overall with ease of breathing and no edema. On exam he does have JVD, which could be a chronic finding from his RHF. Will stop IV Lasix drip and put him back on his Torsedmide 100mg bid. This admit Aldactone and Jardiance have been added to help reduce incidence of recurrent decompensated HF. Check BMP, BNP in am. We will follow Patient seen and examined. Case discussed with Hilda Conway. Patient overall 10 L of negative balance. Creatinine is increased compared to yesterday. BNP has down trended significantly. Patient feels a lot better. I think will switch his IV Lasix drip to p.o. torsemide at his usual dose of 100 mg b.i.d.. Continue Jardiance and Aldactone. He should be discharged home on p.r.n. metolazone 2.5 mg if he develops again signs or symptoms of heart failure. Will try to check his CardioMEMS again today. Extremely difficult case for congestive heart failure with multiple hospitalization the last few months. We discussed about 2nd opinion consultation with advanced heart failure team in [place]. He will think about it. Overall prognosis is guarded. May need workup for secondary causes of recurrent heart failure such as amyloidosis and should undergo scanning per se or possible RV biopsy. <René Lopez MD - Last Filed: 12/02/21 11:45> (2) Pulmonary hypertension: Status: Acute <KEYANNA Burdick - Last Filed: 12/02/21 11:32> Assessment and Plan: Wearing CPAP at night here in hospital and at home. <KEYANNA Burdick - Last Filed: 12/02/21 11:32> (3) Permanent atrial fibrillation: Status: Acute <KEYANNA Burdick - Last Filed: 12/02/21 11:32> Assessment and Plan: Rate controlled with low dose Metoprolol. Tele shows afib, rate 60-80s. No palpitations. No bleeding issues. On coumadin for anticoagulation. INR goal 2-3. INR today 2.0 <KEYANNA Burdick - Last Filed: 12/02/21 11:32> Rate controlled with low dose Metoprolol. Tele shows afib, rate 60-80s. No palpitations. No bleeding issues. On coumadin for anticoagulation. INR goal 2-3. INR today 2.0 Continue current rate control. Continue full oral anticoagulation, currently on warfarin with target INR between 2 and 3. Is stable by tomorrow potentially discharge home <René Lopez MD - Last Filed: 12/02/21 11:45> Time Spent With Patient Time: Total time spent is greater than 50% in coordination of care (as documented) at patient's floor/unit and/or counseling patient: 22 <KEYANNA Burdick - Last Filed: 12/02/21 11:32> Progress Note: Quality Stroke Does the patient have a stroke diagnosis?: No <KEYANNA Burdick - Last Filed: 12/02/21 11:32> Procedures Date of Service Date of Service: 12/02/21 <KEYANNA Burdick - Last Filed: 12/02/21 11:32>
[2021-12-02] MEDS: Insulin Lispro 100 UNIT/ML 3 ML VIAL SUBCUT ×3 (11:43→20:39)
--- NOTE | 2021-12-02 12:20 | HO.PM.IMPN ---
Subjective Subjective Date of Service: 12/02/21 Interval History: f/u on CHF Feels better Review of Systems no sob little swelling in legd Physical Exam Vital Signs: Vital Signs: Last Vital Signs Temp 97.8 F 12/02/21 11:31 Pulse 77 12/02/21 11:31 Resp 20 12/02/21 11:31 BP 115/73 12/02/21 11:31 Pulse Ox 92 12/02/21 11:31 BMI result Body Mass Index 32.1 Const: Other: Gen: NAD HEENT: sclera anicteric, moist mucus membranes Neck: supple, JVD present Lungs: diminished bilaterally Heart: irregularly irregular, no murmurs Abd: obese, less distended, fluid wave Ext: 2+ leg edema Skin: warm/well-perfused Neuro: alert and oriented x3, no focal findings Psych: appropriate affect Objective Data Active Medications Acetaminophen (Acetaminophen 325 Mg Tablet) 650 mg PO Q6H PRN PRN Reason: Pain, Mild (Pain Scale 1-3) Last Admin: 11/29/21 17:42 Dose: 650 mg Documented by: DOC Amitriptyline HCl (Amitriptyline Hcl 50 Mg Tablet) 50 mg PO BEDTIME [facility] Last Admin: 12/01/21 20:56 Dose: 50 mg Documented by: LIN Amlodipine Besylate (Amlodipine Besylate 10 Mg Tablet) 10 mg PO DAILY [facility]; Protocol Last Admin: 12/02/21 10:12 Dose: 10 mg Documented by: DEEPAK Atorvastatin Calcium (Atorvastatin Calcium 80 Mg Tablet) 80 mg PO BEDTIME [facility] Last Admin: 12/01/21 20:56 Dose: 80 mg Documented by: LIN Dextrose (Dextrose 50 % 25 Gm/50 Ml Syringe) 25 gm IVPUSH Q15M PRN; Protocol PRN Reason: per Hypoglycemia Standing Ord. Empagliflozin (Empagliflozin 10 Mg Tablet) 10 mg PO DAILY [facility] Last Admin: 12/02/21 10:12 Dose: 10 mg Documented by: DEEPAK Glucose (Glucose Gel 15 Gm Gel..Gram.) 15 gm PO Q15M PRN; Protocol PRN Reason: per Hypoglycemia Standing Ord. Insulin Glargine (Insulin Glargine,Hum.Rec.Anlog 100 Unit/Ml 10 Ml Vial) 15 unit SUBCUT BEDTIME [facility] Last Admin: 12/01/21 20:56 Dose: 15 unit Documented by: LIN Insulin Human Lispro (Insulin Lispro 100 Unit/Ml 3 Ml Vial) 0 unit SUBCUT QIDACHS [facility]; Protocol Last Admin: 12/02/21 11:43 Dose: 2 unit Documented by: DEEPAK Isosorbide Mononitrate (Isosorbide Mononitrate 60 Mg Tab.Er.24h) 60 mg PO DAILY [facility]; Protocol Last Admin: 12/02/21 10:14 Dose: 60 mg Documented by: DEEPAK Metoprolol Succinate (Metoprolol Succinate Er 25 Mg Tab.Er.24h) 25 mg PO DAILY [facility]; Protocol Last Admin: 12/02/21 10:14 Dose: 25 mg Documented by: DEEPAK Omeprazole (Omeprazole 40 Mg Capsule.Dr) 40 mg PO DAILY@0630 [facility] Last Admin: 12/02/21 06:35 Dose: Not Given Documented by: ANTOIC Non-Admin Reason: Patient Refused Ondansetron HCl (Ondansetron Hcl 4 Mg/2 Ml Vial) 4 mg IVPUSH Q8H PRN PRN Reason: Nausea and Vomiting Pharmacy Consult (Consult Rx Perform Med Rec) 1 each MISCELLANE ONCE PRN PRN Reason: Consult order Potassium Chloride (Potassium Chloride Er 20 Meq Tab.Er.Prt) 40 meq PO BID [facility] Last Admin: 12/02/21 10:12 Dose: 40 meq Documented by: DEEPAK Sodium Chloride (0.9 % Sodium Chloride Flush 3 Ml Syringe) 3 ml IVFLUSH QSHIFT [facility] Last Admin: 12/02/21 10:12 Dose: Not Given Documented by: DEEPAK Non-Admin Reason: IV Running Spironolactone (Spironolactone 25 Mg Tablet) 12.5 mg PO DAILY [facility]; Protocol Last Admin: 12/02/21 10:13 Dose: 12.5 mg Documented by: DEEPAK Tamsulosin HCl (Tamsulosin Hcl 0.4 Mg Capsule) 0.8 mg PO DAILY [facility] Last Admin: 12/02/21 10:14 Dose: 0.8 mg Documented by: DEEPAK Torsemide (Torsemide 20 Mg Tablet) 100 mg PO BID [facility]; Protocol Warfarin Sodium (Warfarin Sodium 5 Mg Tablet) 5 mg PO Carrillo@1800 [facility] Warfarin Sodium (Warfarin Sodium 2.5 Mg Tablet) 2.5 mg PO MoTuWeThFrSa@1800 [facility] Last Admin: 12/01/21 17:12 Dose: 2.5 mg Documented by: GIANCARLO Labs CBC & Chem 7: 11/30/21 04:02 12/02/21 06:00 Labs: Laboratory Results - last 24 hr 11/29/21 11/30/21 12/01/21 09:11 04:02 05:25 PT INR Anion Gap Creatinine 1.57 H 1.26 1.35 Estim Creat Clear Calc Estimated GFR POC Glucose Random Glucose Calcium Magnesium B-Natriuretic Peptide 12/01/21 12/01/21 12/02/21 15:30 19:13 06:00 PT 23.5 H INR 2.0 H Anion Gap Creatinine Estim Creat Clear Calc Estimated GFR POC Glucose 228 H 181 H Random Glucose Calcium Magnesium B-Natriuretic Peptide 12/02/21 12/02/21 12/02/21 06:00 06:00 07:08 PT INR Anion Gap 13 Creatinine 1.67 H Estim Creat Clear Calc 58.5 Estimated GFR 42 POC Glucose 114 Random Glucose 115 D Calcium 8.6 Magnesium 2.2 B-Natriuretic Peptide 217 H 12/02/21 10:57 PT INR Anion Gap Creatinine Estim Creat Clear Calc Estimated GFR POC Glucose 177 H Random Glucose Calcium Magnesium B-Natriuretic Peptide Microbiology Microbiology Results: Microbiology 11/29/21 09:11 Blood Culture - Preliminary Blood - Venous No growth after 48 hours. 11/29/21 09:12 Blood Culture - Preliminary Blood - Venous No growth after 48 hours. Assessment and Plan (1) Decompensated heart failure: Status: Acute [facility] hospital d#4 61yo M with obesity, DARLENE on CPAP and O2 at night, HFrEF [LVEF 30-35% 11/02/21] with CardioMEMS device monitoring, CVA, PVera, CKD3, DM2, HTN who was just admitted here 11/01-11/06/21 for ADHF presenting with 3 days of worsening dyspnea, cough, abdominal pain/distension, and dizziness found to be hypoxic, initially thought to be PNA but more likely pulmonary edema from CHF exacerbation # PNA, not - BCx negative, PCT low x48h, Doxy+Ceftriaxone dc'd; CXR findings due to CHF--not PNA # [id number] hypoxic resp failure - weaned off O2 during day, uses 2L at night with CPAP # acute decompensated heart failure # ascites -improved - systolic and diastolic HF with significant R-sided component as well - mean PA pressure 48 on CardioMEMS 11/29/21, repeat reading ok - Changing IV furosemide drip to home Torseminde today, Cardiology following, added empagliflozin + spironolactone, and also got 1 dose of metolazone 11/29/21 - 10 L negative thus far - monitor BMP/Mg, trend BNP + I/O, weights -Cr trending up and will monitor # DARLENE # pHTN - CPAP at night # HTN -continue amlodipine, Imdur, metoprolol, diuresis as above # hx CVA - continue warfarin, INR therapeutic - cotninue atorvastatin # AF - continue metoprolol - continue warfarin # DM2 - basal/bolus insulin # VTE ppx - warfarin In my clinical judgment, the patient requires continued hospitalization for the following reasons: IV diuresis and monitoring of electrolytes and Cr, possible DC tomorrow Quality Stroke Does the patient have a stroke diagnosis?: No VTE Prior VTE?: No VTE Risk Level:: Medical - moderate - high VTE Device Contraindication: N/A - Device Ordered VTE Drug Contraindication: N/A - Med Ordered
[2021-12-02 16:09] LABS: Glucose, Whole Blood 196 mg/dL (60-115)
[2021-12-02] MEDS: 0.9 % Sodium Chloride Flush 3 ML SYRINGE IVFLUSH ×2 (16:53→20:06)
[2021-12-02] MEDS: Warfarin Sodium 2.5 MG TABLET PO (18:14)
[2021-12-02] MEDS: Atorvastatin Calcium 80 MG TABLET PO (20:06)
[2021-12-02] MEDS: Amitriptyline HCl 50 MG TABLET PO (20:06)
[2021-12-02] MEDS: Torsemide 20 MG TABLET 100 MG PO (20:11)
[2021-12-02 20:13] LABS: Glucose, Whole Blood 220 mg/dL (60-115)
[2021-12-02] MEDS: Insulin Glargine,Hum.rec.anlog 100 UNIT/ML 10 ML VIAL 15 UNIT SUBCUT (20:39)
[2021-12-03] VITALS (7 sets, daily range): BP systolic 91–111; BP diastolic 54–65; PULSE 61–74; RESP 17–20; TEMP 36.2–37.5; O2SAT 82–99
[2021-12-03 06:12] LABS: INTERNATIONAL NORM RATIO 1.9 (0.9-1.1); Prothrombin Time 21.6 SEC (9.9-13.0)
[2021-12-03 07:39] LABS: Glucose, Whole Blood 146 mg/dL (60-115)
[2021-12-03] MEDS: Isosorbide Mononitrate 60 MG TAB.ER.24H PO (07:57)
[2021-12-03] MEDS: Potassium Chloride ER 20 MEQ TAB.ER.PRT 40 MEQ PO ×2 (07:57→21:51)
[2021-12-03] MEDS: Tamsulosin HCL 0.4 MG CAPSULE 0.8 MG PO (07:57)
[2021-12-03] MEDS: Empagliflozin 10 MG TABLET PO (07:58)
[2021-12-03] MEDS: Metoprolol Succinate ER 25 MG TAB.ER.24H PO (07:58)
[2021-12-03] MEDS: Spironolactone 25 MG TABLET 12.5 MG PO (07:58)
[2021-12-03] MEDS: Torsemide 20 MG TABLET 100 MG PO ×2 (07:59→21:51)
[2021-12-03] MEDS: amLODIPine Besylate 10 MG TABLET PO (07:59)
[2021-12-03] MEDS: 0.9 % Sodium Chloride Flush 3 ML SYRINGE IVFLUSH ×3 (08:00→21:51)
[2021-12-03 08:06] LABS: Anion Gap 15 (12-20); Blood Urea Nitrogen 49 mg/dL (9-16); Calcium 8.1 mg/dL (8.4-10.2); Carbon Dioxide 28 mmol/L (22-29); Chloride 99 mmol/L (96-108); Creatinine Clr Calc Pharmacy 50.6; Estimated Glomerular Filt Rate 36; Glucose Random 160 mg/dL (60-115); Potassium 5.3 mmol/L (3.3-5.1); Sodium 137 mmol/L (135-145)
--- NOTE | 2021-12-03 10:23 | P.PNIM_ITS ---
Subjective Subjective Date of Service: 12/03/21 Interval History: f/u on CHF Feels better, no sob Review of Systems no sob little swelling in leg, and feel Physical Exam Vital Signs: Vital Signs: Last Vital Signs Temp 98.1 F 12/03/21 07:14 Pulse 68 12/03/21 07:14 Resp 18 12/03/21 07:14 BP 106/61 12/03/21 07:14 Pulse Ox 92 12/03/21 07:14 BMI result Body Mass Index 32.1 Const: Other: Gen: NAD HEENT: sclera anicteric, moist mucus membranes Neck: supple, JVD present Lungs: diminished bilaterally Heart: irregularly irregular, no murmurs Abd: obese, less distended, fluid wave Ext: 2+ leg edema Skin: warm/well-perfused Neuro: alert and oriented x3, no focal findings Psych: appropriate affect Objective Data Active Medications Acetaminophen (Acetaminophen 325 Mg Tablet) 650 mg PO Q6H PRN PRN Reason: Pain, Mild (Pain Scale 1-3) Last Admin: 11/29/21 17:42 Dose: 650 mg Documented by: DOC Amitriptyline HCl (Amitriptyline Hcl 50 Mg Tablet) 50 mg PO BEDTIME [facility] Last Admin: 12/02/21 20:06 Dose: 50 mg Documented by: BREE Amlodipine Besylate (Amlodipine Besylate 10 Mg Tablet) 10 mg PO DAILY [facility]; Protocol Last Admin: 12/03/21 07:59 Dose: 10 mg Documented by: PAULINE Atorvastatin Calcium (Atorvastatin Calcium 80 Mg Tablet) 80 mg PO BEDTIME [facility] Last Admin: 12/02/21 20:06 Dose: 80 mg Documented by: BREE Dextrose (Dextrose 50 % 25 Gm/50 Ml Syringe) 25 gm IVPUSH Q15M PRN; Protocol PRN Reason: per Hypoglycemia Standing Ord. Empagliflozin (Empagliflozin 10 Mg Tablet) 10 mg PO DAILY [facility] Last Admin: 12/03/21 07:58 Dose: 10 mg Documented by: PAULINE Glucose (Glucose Gel 15 Gm Gel..Gram.) 15 gm PO Q15M PRN; Protocol PRN Reason: per Hypoglycemia Standing Ord. Insulin Glargine (Insulin Glargine,Hum.Rec.Anlog 100 Unit/Ml 10 Ml Vial) 15 unit SUBCUT BEDTIME [facility] Last Admin: 12/02/21 20:39 Dose: 15 unit Documented by: BREE Insulin Human Lispro (Insulin Lispro 100 Unit/Ml 3 Ml Vial) 0 unit SUBCUT QIDACHS [facility]; Protocol Last Admin: 12/03/21 08:00 Dose: Not Given Documented by: PAULINE Non-Admin Reason: No Insulin Coverage Isosorbide Mononitrate (Isosorbide Mononitrate 60 Mg Tab.Er.24h) 60 mg PO DAILY [facility]; Protocol Last Admin: 12/03/21 07:57 Dose: 60 mg Documented by: PAULINE Metoprolol Succinate (Metoprolol Succinate Er 25 Mg Tab.Er.24h) 25 mg PO DAILY [facility]; Protocol Last Admin: 12/03/21 07:58 Dose: 25 mg Documented by: PAULINE Omeprazole (Omeprazole 40 Mg Capsule.Dr) 40 mg PO DAILY@0630 [facility] Last Admin: 12/03/21 05:15 Dose: Not Given Documented by: BREE Non-Admin Reason: Patient Refused Ondansetron HCl (Ondansetron Hcl 4 Mg/2 Ml Vial) 4 mg IVPUSH Q8H PRN PRN Reason: Nausea and Vomiting Pharmacy Consult (Consult Rx Perform Med Rec) 1 each MISCELLANE ONCE PRN PRN Reason: Consult order Potassium Chloride (Potassium Chloride Er 20 Meq Tab.Er.Prt) 40 meq PO BID [facility] Last Admin: 12/03/21 07:57 Dose: 40 meq Documented by: PAULINE Sodium Chloride (0.9 % Sodium Chloride Flush 3 Ml Syringe) 3 ml IVFLUSH QSHIFT [facility] Last Admin: 12/03/21 08:00 Dose: 3 ml Documented by: PAULINE Spironolactone (Spironolactone 25 Mg Tablet) 12.5 mg PO DAILY [facility]; Protocol Last Admin: 12/03/21 07:58 Dose: 12.5 mg Documented by: PAULINE Tamsulosin HCl (Tamsulosin Hcl 0.4 Mg Capsule) 0.8 mg PO DAILY [facility] Last Admin: 12/03/21 07:57 Dose: 0.8 mg Documented by: PAULINE Torsemide (Torsemide 20 Mg Tablet) 100 mg PO BID [facility]; Protocol Last Admin: 12/03/21 07:59 Dose: 100 mg Documented by: PAULINE Warfarin Sodium (Warfarin Sodium 5 Mg Tablet) 5 mg PO Carrillo@1800 [facility] Warfarin Sodium (Warfarin Sodium 2.5 Mg Tablet) 2.5 mg PO MoTuWeThFrSa@1800 [facility] Last Admin: 12/02/21 18:14 Dose: 2.5 mg Documented by: DEEPAK Labs CBC & Chem 7: 11/30/21 04:02 12/03/21 05:45 Labs: Laboratory Results - last 24 hr 12/02/21 12/02/21 12/02/21 10:57 15:57 19:56 PT INR Anion Gap Estim Creat Clear Calc Estimated GFR POC Glucose 177 H 196 H 220 H Random Glucose Calcium 12/03/21 12/03/21 12/03/21 05:45 05:45 07:15 PT 21.6 H INR 1.9 H Anion Gap 15 Estim Creat Clear Calc 50.6 Estimated GFR 36 POC Glucose 146 H Random Glucose 160 H D Calcium 8.1 L Assessment and Plan (1) Decompensated heart failure: Status: Acute [facility] hospital d#5 61yo M with obesity, DARLENE on CPAP and O2 at night, HFrEF [LVEF 30-35% 11/02/21] with CardioMEMS device monitoring, CVA, PVera, CKD3, DM2, HTN who was just admitted here 11/01-11/06/21 for ADHF presenting with 3 days of worsening dyspnea, cough, abdominal pain/distension, and dizziness found to be hypoxic, initially thought to be PNA but more likely pulmonary edema from CHF exacerbation # ?PNA, NOT - BCx negative, PCT low x48h, Doxy+Ceftriaxone dc'd; CXR findings due to CHF--not PNA # [id number] hypoxic resp failure - weaned off O2 during day, uses 2L at night with CPAP # acute decompensated heart failure # ascites -improved - systolic and diastolic HF with significant R-sided component as well - mean PA pressure 48 on CardioMEMS 11/29/21, repeat reading ok - Changing IV furosemide drip to home Torseminde today, Cardiology following, added empagliflozin + spironolactone, and also got 1 dose of metolazone 11/29/21 - 12 L negative thus far - monitor BMP/Mg, trend BNP + I/O, weights -Cr trending up and will monitor #NIRAJ on CKD, Cre 1.9 up from 1.6, d/t diuresis, Nephro consult, may need to give fluid # DARLENE # pHTN - CPAP at night # HTN -continue amlodipine, Imdur, metoprolol, diuresis as above # hx CVA - continue warfarin, INR therapeutic - cotninue atorvastatin # AF - continue metoprolol - continue warfarin # DM2 - basal/bolus insulin # VTE ppx - warfarin In my clinical judgment, the patient requires continued hospitalization for the following reasons: IV diuresis and monitoring of electrolytes and Cr, Quality Stroke Does the patient have a stroke diagnosis?: No VTE Prior VTE?: No VTE Risk Level:: Medical - moderate - high VTE Device Contraindication: N/A - Device Ordered VTE Drug Contraindication: N/A - Med Ordered
--- NOTE | 2021-12-03 10:51 | PM.PNCARD ---
Subjective Subjective Date of Service: 12/03/21 Principal diagnosis: Decompensated CHF Interval history: Patient is feeling very well from congestive heart failure perspective. However creatinine further elevated today. Hemodynamically stable with no evidence of hypertension. Remains in atrial fibrillation. Overnight still diuresed another 2 L. cumulative negative balance of 12.3 L Review of Systems Review of Systems Yes all other systems are reviewed and are negative Physical Exam Vital Signs: Last Vital Signs Temp 98.1 F 12/03/21 07:14 Pulse 68 12/03/21 07:14 Resp 18 12/03/21 07:14 BP 106/61 12/03/21 07:14 Pulse Ox 92 12/03/21 07:14 BMI result Body Mass Index 32.1 Const General: cooperative, comfortable, no acute distress, alert and awake Nutritional Appearance: overweight Orientation/consciousness: patient oriented x3 Neck Neck: Yes trachea midline, Yes supple and Yes no JVD (Prominent V-waves) Resp Effort & Inspection: normal respiratory effort Auscultation: clear to auscultation bilaterally Cardio Jugular venous distension: no JVD Rhythm: abnormal rhythm irregularly irregular Heart sounds: S1 normal heart sound present and S2 normal heart sound present GI Inspection: Yes obesity Auscultation: normal bowel sounds Skin General skin exam: no rashes or lesions noted Neuro General: patient oriented x3 and no focal motor deficits Extrem General: No clubbing, No cyanosis and Yes edema Objective Labs and Meds Result diagrams: 11/30/21 04:02 12/03/21 05:45 Lab results: Laboratory Results - last 24 hr 12/02/21 12/02/21 12/02/21 10:57 15:57 19:56 PT INR Sodium Potassium Chloride Carbon Dioxide Anion Gap BUN Creatinine Estim Creat Clear Calc Estimated GFR POC Glucose 177 H 196 H 220 H Random Glucose Calcium 12/03/21 12/03/21 12/03/21 05:45 05:45 07:15 PT 21.6 H INR 1.9 H Sodium 137 Potassium 5.3 H Chloride 99 Carbon Dioxide 28 Anion Gap 15 BUN 49 H Creatinine 1.93 H Estim Creat Clear Calc 50.6 Estimated GFR 36 POC Glucose 146 H Random Glucose 160 H D Calcium 8.1 L Progress Note: A&P Assessment and plan (1) Decompensated heart failure: Status: Acute Assessment and Plan: Patient admitted with decompensated heart failure with advanced difficult to treat diastolic heart failure setting of chronic atrial fibrillation. Highly unusual heart failure syndrome with very sensitive to diuretics. With the rapidity of diuresis his creatinine is rising. Hold off on torsemide each afternoon dose. If his creatinine is down trending, and he is feeling well tomorrow can be discharged. Would send him home on his usual dose of torsemide 100 mg b.i.d. in addition to added Jardiance 10 mg and Aldactone for neurohormonal modulation. I think his p.r.n. medication should be metolazone rather than increase torsemide when he starts to decompensate at home. This was discussed with him. Consider 2nd opinion consultation to further evaluate for his diastolic heart failure to rule out any restrictive pathology. Will follow with you Time Spent With Patient Time: Total time spent is greater than 50% in coordination of care (as documented) at patient's floor/unit and/or counseling patient: Progress Note: Quality Stroke Does the patient have a stroke diagnosis?: No Procedures Date of Service Date of Service: 12/03/21
[2021-12-03 11:23] LABS: Glucose, Whole Blood 176 mg/dL (60-115)
[2021-12-03] MEDS: Insulin Lispro 100 UNIT/ML 3 ML VIAL SUBCUT ×3 (12:10→21:51)
[2021-12-03 16:08] LABS: Glucose, Whole Blood 174 mg/dL (60-115)
[2021-12-03] MEDS: Warfarin Sodium 2.5 MG TABLET PO (16:55)
--- NOTE | 2021-12-03 18:03 | PC.NURSE ---
o2 sat 82% RA. cough an deep breath, increased to 86%. Placed on 1L NC, rechecked POX 94%.
[2021-12-03 19:43] LABS: Glucose, Whole Blood 229 mg/dL (60-115)
--- NOTE | 2021-12-03 21:25 | PM.CNNEP ---
History of Present Illness Reason for Consult Consult date: 12/03/21 Reason for consult: NIARJ on CKD Chief Complaint Chief complaint: PNA ADHF History of Present Illness Narrative: 61yo M with HTN, HFpEF with cardioMEMS device in place, HLD, CAD, DM2, DARLENE, severe pHTN, AF on warfarin, CKD3-4, hx CVA, polycythemic vera, chronic hypoxic respiratory failure on 2L, who presented on 11/29 for 3 days of worsening dyspnea, cough, and abdominal pain/distension. CXR demonstrated bilateral PNA. He was placed on 3L O2 and given ceftriaxone and azithromycin. Abdominal CT demonstrated ascites and hepatosplenomegaly. CXR may be more compatible with pulmonary edema. Review of Systems Constitutional: Reports as per [facility] Past Medical History Medical History (Updated 12/03/21 @ 21:27 by Drew Middleton MD) Anasarca Atrial fibrillation CAD (coronary artery disease) Cataract Cholecystectomy planned Chronic a-fib Chronic combined systolic and diastolic congestive heart failure Chronic respiratory failure CKD (chronic kidney disease) stage 3, GFR 30-59 ml/min CVA (cerebral vascular accident) Diabetes Gross hematuria Heart attack HTN (hypertension) Hyperlipidemia Neuropathy DARLENE on CPAP Permanent atrial fibrillation Polycythemia vera Pulmonary hypertension Toe amputee Urinary retention with incomplete bladder emptying Family History Family History Father Diabetes Hx of cancer antigen 125 (CA-125) measurement Mother Diabetes Brother Diabetes Hx of cancer antigen 125 (CA-125) measurement Surgical History Surgical History History of cholecystectomy Social History Social History Household Members: 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 Housing: House Do you presently have visiting nurse or other home services: No Alcohol intake: former Patient Tobacco Use Status: Never used Tobacco Advance Directives Date on File: 09/15/21 service: No Current occupational status: disabled Meds Allergies Allergy/AdvReac Type Severity Reaction Status Date / Time No Known Allergies Allergy Unknown NKDA Verified 10/18/21 09:25 Active Medications: Current Medications Acetaminophen (Acetaminophen 325 Mg Tablet) 650 mg PO Q6H PRN PRN Reason: Pain, Mild (Pain Scale 1-3) Last Admin: 11/29/21 17:42 Dose: 650 mg Documented by: Amitriptyline HCl (Amitriptyline Hcl 50 Mg Tablet) 50 mg PO BEDTIME [facility] Last Admin: 12/02/21 20:06 Dose: 50 mg Documented by: Amlodipine Besylate (Amlodipine Besylate 10 Mg Tablet) 10 mg PO DAILY [facility]; Protocol Last Admin: 12/03/21 07:59 Dose: 10 mg Documented by: Atorvastatin Calcium (Atorvastatin Calcium 80 Mg Tablet) 80 mg PO BEDTIME [facility] Last Admin: 12/02/21 20:06 Dose: 80 mg Documented by: Dextrose (Dextrose 50 % 25 Gm/50 Ml Syringe) 25 gm IVPUSH Q15M PRN; Protocol PRN Reason: per Hypoglycemia Standing Ord. Empagliflozin (Empagliflozin 10 Mg Tablet) 10 mg PO DAILY [facility] Last Admin: 12/03/21 07:58 Dose: 10 mg Documented by: Glucose (Glucose Gel 15 Gm Gel..Gram.) 15 gm PO Q15M PRN; Protocol PRN Reason: per Hypoglycemia Standing Ord. Insulin Glargine (Insulin Glargine,Hum.Rec.Anlog 100 Unit/Ml 10 Ml Vial) 15 unit SUBCUT BEDTIME [facility] Last Admin: 12/02/21 20:39 Dose: 15 unit Documented by: Insulin Human Lispro (Insulin Lispro 100 Unit/Ml 3 Ml Vial) 0 unit SUBCUT QIDACHS [facility]; Protocol Last Admin: 12/03/21 16:54 Dose: 2 unit Documented by: Isosorbide Mononitrate (Isosorbide Mononitrate 60 Mg Tab.Er.24h) 60 mg PO DAILY [facility]; Protocol Last Admin: 12/03/21 07:57 Dose: 60 mg Documented by: Metoprolol Succinate (Metoprolol Succinate Er 25 Mg Tab.Er.24h) 25 mg PO DAILY [facility]; Protocol Last Admin: 12/03/21 07:58 Dose: 25 mg Documented by: Omeprazole (Omeprazole 40 Mg Capsule.Dr) 40 mg PO DAILY@0630 [facility] Last Admin: 12/03/21 05:15 Dose: Not Given Documented by: Ondansetron HCl (Ondansetron Hcl 4 Mg/2 Ml Vial) 4 mg IVPUSH Q8H PRN PRN Reason: Nausea and Vomiting Pharmacy Consult (Consult Rx Perform Med Rec) 1 each MISCELLANE ONCE PRN PRN Reason: Consult order Potassium Chloride (Potassium Chloride Er 20 Meq Tab.Er.Prt) 40 meq PO BID [facility] Last Admin: 12/03/21 07:57 Dose: 40 meq Documented by: Sodium Chloride (0.9 % Sodium Chloride Flush 3 Ml Syringe) 3 ml IVFLUSH QSHIFT [facility] Last Admin: 12/03/21 16:55 Dose: 3 ml Documented by: Spironolactone (Spironolactone 25 Mg Tablet) 12.5 mg PO DAILY [facility]; Protocol Last Admin: 12/03/21 07:58 Dose: 12.5 mg Documented by: Tamsulosin HCl (Tamsulosin Hcl 0.4 Mg Capsule) 0.8 mg PO DAILY [facility] Last Admin: 12/03/21 07:57 Dose: 0.8 mg Documented by: Torsemide (Torsemide 20 Mg Tablet) 100 mg PO BID [facility]; Protocol Last Admin: 12/03/21 07:59 Dose: 100 mg Documented by: Warfarin Sodium (Warfarin Sodium 5 Mg Tablet) 5 mg PO Carrillo@1800 [facility] Warfarin Sodium (Warfarin Sodium 2.5 Mg Tablet) 2.5 mg PO MoTuWeThFrSa@1800 [facility] Last Admin: 12/03/21 16:55 Dose: 2.5 mg Documented by: Home Medications Medication Instructions Recorded Confirmed Last Taken Type atorvastatin 80 mg tablet 1 tab PO BEDTIME 05/08/20 11/29/21 10/31/21 History metoprolol succinate 25 mg 1 tab PO DAILY 05/08/20 11/29/21 11/01/21 History tablet,extended release 24 hr isosorbide mononitrate 60 mg 1 tab PO DAILY 07/17/21 11/29/21 11/01/21 History tablet,extended release 24 hr torsemide 100 mg tablet 1 tab PO BIDWM 07/17/21 11/29/21 11/01/21 History insulin glargine 100 unit/mL (3 15 unit SUBCUT BEDTIME 10/06/21 11/29/21 10/31/21 History mL) subcutaneous pen (Lantus Solostar U-100 Insulin) pen needle, diabetic 31 gauge x #1200 ea 10/06/21 10/06/21 Unknown History 11/14 (BD Ultra-Fine Short Pen Needle) amlodipine 10 mg tablet (Norvasc) 10 mg PO DAILY 05/09/2011/29/21 11/01/21 History warfarin 2.5 mg tablet 2.5 mg PO MOTUWETHFRSA@1800 11/01/21 11/29/21 10/31/21 History warfarin 2.5 mg tablet 5 mg PO CARRILLO@1800 11/01/21 11/29/21 10/30/21 History omeprazole 40 mg capsule,delayed 1 cap PO DAILY 11/29/21 11/29/21 Unknown History release potassium chloride 20 mEq 2 tab PO BID 11/29/21 11/29/21 Unknown History tablet,extended release(part/cryst) tamsulosin 0.4 mg capsule 2 cap PO DAILY 11/29/21 11/29/21 Unknown History torsemide 20 mg tablet 40 mg PO BID PRN 11/29/21 11/29/21 Unknown History Physical Exam Vital Signs: Last Vital Signs Temp 98.9 F 12/03/21 19:42 Pulse 73 12/03/21 19:42 Resp 18 12/03/21 19:42 BP 101/65 12/03/21 19:42 Pulse Ox 89 L 12/03/21 19:42 Oxygen Flow Rate 1 12/03/21 18:01 BMI result Body Mass Index 32.1 Const General: cooperative and no acute distress HEENT Head: Yes normocephalic Neck Neck: Yes no JVD Resp Auscultation: crackles and wheezes Cardio Jugular venous distension: no JVD Rate: regular rate Rhythm: regular rhythm Heart sounds: S1 normal heart sound present and S2 normal heart sound present GI Auscultation: normal bowel sounds Skin General skin exam: dry skin and induration Extrem Right upper extremity: edema Results Lab Results Result Diagrams: 11/30/21 04:02 12/03/21 05:45 Lab results: Chemistry 12/01/21 12/02/21 12/03/21 05:25 06:00 05:45 Sodium 139 139 137 Potassium 4.1 4.8 5.3 H Carbon Dioxide 30 H 31 H 28 BUN 43 H 44 H 49 H Creatinine 1.35 1.67 H 1.93 H Calcium 8.6 D 8.6 8.1 L Assessment and Plan (1) CKD (chronic kidney disease) stage 3, GFR 30-59 ml/min: Status: Acute Plan 61yo M with HTN, HFpEF with cardioMEMS device in place, HLD, CAD, DM2, DARLENE, severe pHTN, AF on warfarin, CKD3-4, hx CVA, polycythemic vera, chronic hypoxic respiratory failure on 2L, who presented on 11/29 for 3 days of worsening dyspnea, cough, and abdominal pain/distension. CXR demonstrated bilateral PNA. He was placed on 3L O2 and given ceftriaxone and azithromycin. Abdominal CT demonstrated ascites and hepatosplenomegaly. CXR may be more compatible with pulmonary edema. #) NIRAJ on CKD stage 3: Daily renal panel Would continue diuretics. Volume overloaded on exam with 1+ pitting edema into thighs b/l Monitor Mg, K for replacement Lokelma 10 Gm prn K> 5.2 Avoid nephrotoxic medications acute on chronic HFpEF Will follow along with you. Procedures Date of Service Date of Service: 12/03/21
[2021-12-03] MEDS: Amitriptyline HCl 50 MG TABLET PO (21:50)
[2021-12-03] MEDS: Atorvastatin Calcium 80 MG TABLET PO (21:50)
[2021-12-03] MEDS: Insulin Glargine,Hum.rec.anlog 100 UNIT/ML 10 ML VIAL 15 UNIT SUBCUT (21:51)
[2021-12-04 04:00] VITALS: BP 96/55; PULSE 71; RESP 18; TEMP 36.6; O2SAT 99
[2021-12-04] MEDS: Omeprazole 40 MG CAPSULE.DR PO (06:40)
[2021-12-04 06:58] VITALS: BP 99/56; PULSE 63; RESP 18; TEMP 36.3; O2SAT 92
[2021-12-04 07:22] LABS: Glucose, Whole Blood 159 mg/dL (60-115)
[2021-12-04 07:34] LABS: INTERNATIONAL NORM RATIO 1.9 (0.9-1.1)
--- NOTE | 2021-12-04 07:48 | HO.PM.IMPN ---
Subjective Subjective Date of Service: 12/04/21 Interval History: chf Physical Exam Vital Signs: Vital Signs: Last Vital Signs Temp 97.4 F 12/04/21 06:58 Pulse 63 12/04/21 06:58 Resp 18 12/04/21 06:58 BP 99/56 L 12/04/21 06:58 Pulse Ox 92 12/04/21 06:58 Oxygen Flow Rate 1 12/03/21 18:01 BMI result Body Mass Index 32.1 Objective Data Active Medications Acetaminophen (Acetaminophen 325 Mg Tablet) 650 mg PO Q6H PRN PRN Reason: Pain, Mild (Pain Scale 1-3) Last Admin: 11/29/21 17:42 Dose: 650 mg Documented by: DOC Amitriptyline HCl (Amitriptyline Hcl 50 Mg Tablet) 50 mg PO BEDTIME [facility] Last Admin: 12/03/21 21:50 Dose: 50 mg Documented by: WHITNEY Amlodipine Besylate (Amlodipine Besylate 10 Mg Tablet) 10 mg PO DAILY [facility]; Protocol Last Admin: 12/03/21 07:59 Dose: 10 mg Documented by: PAULINE Atorvastatin Calcium (Atorvastatin Calcium 80 Mg Tablet) 80 mg PO BEDTIME [facility] Last Admin: 12/03/21 21:50 Dose: 80 mg Documented by: WHITNEY Dextrose (Dextrose 50 % 25 Gm/50 Ml Syringe) 25 gm IVPUSH Q15M PRN; Protocol PRN Reason: per Hypoglycemia Standing Ord. Empagliflozin (Empagliflozin 10 Mg Tablet) 10 mg PO DAILY [facility] Last Admin: 12/03/21 07:58 Dose: 10 mg Documented by: PAULINE Glucose (Glucose Gel 15 Gm Gel..Gram.) 15 gm PO Q15M PRN; Protocol PRN Reason: per Hypoglycemia Standing Ord. Insulin Glargine (Insulin Glargine,Hum.Rec.Anlog 100 Unit/Ml 10 Ml Vial) 15 unit SUBCUT BEDTIME [facility] Last Admin: 12/03/21 21:51 Dose: 15 unit Documented by: WHITNEY Insulin Human Lispro (Insulin Lispro 100 Unit/Ml 3 Ml Vial) 0 unit SUBCUT QIDACHS [facility]; Protocol Last Admin: 12/03/21 21:51 Dose: 4 unit Documented by: WHITNEY Isosorbide Mononitrate (Isosorbide Mononitrate 60 Mg Tab.Er.24h) 60 mg PO DAILY [facility]; Protocol Last Admin: 12/03/21 07:57 Dose: 60 mg Documented by: PAULINE Metoprolol Succinate (Metoprolol Succinate Er 25 Mg Tab.Er.24h) 25 mg PO DAILY [facility]; Protocol Last Admin: 12/03/21 07:58 Dose: 25 mg Documented by: PAULINE Omeprazole (Omeprazole 40 Mg Capsule.) 40 mg PO DAILY@0630 [facility] Last Admin: 12/04/21 06:40 Dose: 40 mg Documented by: JEFF Ondansetron HCl (Ondansetron Hcl 4 Mg/2 Ml Vial) 4 mg IVPUSH Q8H PRN PRN Reason: Nausea and Vomiting Pharmacy Consult (Consult Rx Perform Med Rec) 1 each MISCELLANE ONCE PRN PRN Reason: Consult order Potassium Chloride (Potassium Chloride Er 20 Meq Tab.Er.Prt) 40 meq PO BID [facility] Last Admin: 12/03/21 21:51 Dose: 40 meq Documented by: WHITNEY Sodium Chloride (0.9 % Sodium Chloride Flush 3 Ml Syringe) 3 ml IVFLUSH QSHIFT [facility] Last Admin: 12/03/21 21:51 Dose: 3 ml Documented by: WHITNEY Spironolactone (Spironolactone 25 Mg Tablet) 12.5 mg PO DAILY [facility]; Protocol Last Admin: 12/03/21 07:58 Dose: 12.5 mg Documented by: PAULINE Tamsulosin HCl (Tamsulosin Hcl 0.4 Mg Capsule) 0.8 mg PO DAILY [facility] Last Admin: 12/03/21 07:57 Dose: 0.8 mg Documented by: PAULINE Torsemide (Torsemide 20 Mg Tablet) 100 mg PO BID [facility]; Protocol Last Admin: 12/03/21 21:51 Dose: 100 mg Documented by: WHITNEY Warfarin Sodium (Warfarin Sodium 5 Mg Tablet) 5 mg PO Carrillo@1800 [facility] Warfarin Sodium (Warfarin Sodium 2.5 Mg Tablet) 2.5 mg PO MoTuWeThFrSa@1800 [facility] Last Admin: 12/03/21 16:55 Dose: 2.5 mg Documented by: PAULINE Labs CBC & Chem 7: 11/30/21 04:02 12/03/21 05:45 Labs: Laboratory Results - last 24 hr 12/03/21 12/03/21 12/03/21 05:45 11:18 15:52 PT INR Anion Gap 15 Estim Creat Clear Calc 50.6 Estimated GFR 36 POC Glucose 176 H 174 H Random Glucose 160 H D Calcium 8.1 L 12/03/21 12/04/21 12/04/21 19:32 06:33 07:01 PT 22.0 H INR 1.9 H Anion Gap Estim Creat Clear Calc Estimated GFR POC Glucose 229 H 159 H Random Glucose Calcium Assessment and Plan Plan 61yo M with obesity, DARLENE on CPAP and O2 at night, HFrEF [LVEF 30-35% 11/02/21] with CardioMEMS device monitoring, CVA, PVera, CKD3, DM2, HTN who was just admitted here 11/01-11/06/21 for ADHF presenting with 3 days of worsening dyspnea, cough, abdominal pain/distension, and dizziness found to be hypoxic, initially thought to be PNA but more likely pulmonary edema from CHF exacerbation # ?PNA, NOT - BCx negative, PCT low x48h, Doxy+Ceftriaxone dc'd; CXR findings due to CHF--not PNA # [id number] hypoxic resp failure - weaned off O2 during day, uses 2L at night with CPAP # acute decompensated heart failure # ascites -improved - systolic and diastolic HF with significant R-sided component as well - mean PA pressure 48 on CardioMEMS 11/29/21, repeat reading ok - Changing? IV furosemide drip to home Torseminde today, Cardiology following, added empagliflozin + spironolactone, and also got 1 dose of metolazone 11/29/21 - 12 L negative thus far - monitor BMP/Mg, trend BNP + I/O, weights -Cr trending up and will monitor #NIRAJ on CKD, Cre 1.9 up from 1.6, d/t diuresis, Nephro consult, may need to give fluid # DARLENE # pHTN - CPAP at night # HTN -continue amlodipine, Imdur, metoprolol, diuresis as above # hx CVA - continue warfarin, INR therapeutic - cotninue atorvastatin # AF - continue metoprolol - continue warfarin # DM2 - basal/bolus insulin # VTE ppx - warfarin Quality Stroke Does the patient have a stroke diagnosis?: No VTE Prior VTE?: No VTE Risk Level:: Medical - moderate - high VTE Device Contraindication: N/A - Device Ordered VTE Drug Contraindication: N/A - Med Ordered
[2021-12-04] MEDS: Insulin Lispro 100 UNIT/ML 3 ML VIAL SUBCUT ×2 (07:59→12:07)
[2021-12-04] MEDS: Tamsulosin HCL 0.4 MG CAPSULE 0.8 MG PO (08:00)
[2021-12-04] MEDS: Metoprolol Succinate ER 25 MG TAB.ER.24H PO (08:00)
[2021-12-04] MEDS: Isosorbide Mononitrate 60 MG TAB.ER.24H PO (08:00)
[2021-12-04] MEDS: Potassium Chloride ER 20 MEQ TAB.ER.PRT 40 MEQ PO (08:00)
[2021-12-04] MEDS: 0.9 % Sodium Chloride Flush 3 ML SYRINGE IVFLUSH (08:01)
[2021-12-04] MEDS: Empagliflozin 10 MG TABLET PO (08:01)
[2021-12-04 08:30] LABS: Anion Gap 15 (12-20); Blood Urea Nitrogen 53 mg/dL (9-16); Calcium 8.1 mg/dL (8.4-10.2); Carbon Dioxide 28 mmol/L (22-29); Chloride 98 mmol/L (96-108); Creatinine Clr Calc Pharmacy 52.8; Estimated Glomerular Filt Rate 38; Glucose Random 149 mg/dL (60-115); Potassium 4.9 mmol/L (3.3-5.1); Sodium 136 mmol/L (135-145)
[2021-12-04 08:40] LABS: B Type Natriuretic Peptide 173 pg/mL (<100)
[2021-12-04 11:08] VITALS: BP 110/64; PULSE 68; RESP 18; TEMP 36.8; O2SAT 93
[2021-12-04 11:14] LABS: Glucose, Whole Blood 175 mg/dL (60-115)
--- NOTE | 2021-12-04 12:55 | P.PNCA_ITS ---
Subjective Subjective Date of Service: 12/04/21 Principal diagnosis: Decompensated CHF Interval history: Patient feeling better today. Still went on to have more diuresis overnight. Overall negative balance of about 14 L. Creatinine is down trended today. Review of Systems Review of Systems Yes all other systems are reviewed and are negative Physical Exam Vital Signs: Last Vital Signs Temp 98.3 F 12/04/21 11:08 Pulse 68 12/04/21 11:08 Resp 18 12/04/21 11:08 BP 110/64 12/04/21 11:08 Pulse Ox 93 12/04/21 11:08 Oxygen Flow Rate 1 12/03/21 18:01 BMI result Body Mass Index 32.1 Const General: cooperative, comfortable, no acute distress, alert, awake and tired appearing Nutritional Appearance: overweight Orientation/consciousness: patient oriented x3 Neck Neck: Yes trachea midline, Yes supple and Yes no JVD (Prominent V-waves) Resp Effort & Inspection: normal respiratory effort Auscultation: clear to auscultation bilaterally Cardio Jugular venous distension: no JVD Rhythm: abnormal rhythm irregularly irregular Heart sounds: S1 normal heart sound present, S2 normal heart sound present, no click, no gallops and no murmurs Skin General skin exam: no rashes or lesions noted Neuro General: patient oriented x3 and no focal motor deficits Extrem General: Yes no clubbing, cyanosis or edema Objective Labs and Meds Result diagrams: 11/30/21 04:02 12/04/21 06:30 Lab results: Laboratory Results - last 24 hr 12/03/21 12/03/21 12/04/21 15:52 19:32 06:30 PT INR Sodium 136 Potassium 4.9 Chloride 98 Carbon Dioxide 28 Anion Gap 15 BUN 53 H Creatinine 1.85 H Estim Creat Clear Calc 52.8 Estimated GFR 38 POC Glucose 174 H 229 H Random Glucose 149 H Calcium 8.1 L B-Natriuretic Peptide 12/04/21 12/04/21 12/04/21 06:30 06:33 07:01 PT 22.0 H INR 1.9 H Sodium Potassium Chloride Carbon Dioxide Anion Gap BUN Creatinine Estim Creat Clear Calc Estimated GFR POC Glucose 159 H Random Glucose Calcium B-Natriuretic Peptide 173 H 12/04/21 11:10 PT INR Sodium Potassium Chloride Carbon Dioxide Anion Gap BUN Creatinine Estim Creat Clear Calc Estimated GFR POC Glucose 175 H Random Glucose Calcium B-Natriuretic Peptide Progress Note: A&P Assessment and plan (1) Decompensated heart failure: Status: Acute Assessment and Plan: Advanced and difficult to treat diastolic heart failure with recurrent hospitalization last few months including 2 hospitalizations this hospital. He is on very high dose of loop diuretics at home. Jardiance and Aldactone was added to his regimen. He does have CardioMEMS device and is closely followed by his customer relations coordinator in [place]. Continue the same follow-up. I think his p.r.n. medication should be metolazone 2.5 mg when he starts decompensated. This was discussed with him. Low-salt diet and limited fluid intake was discussed with him. Encouraged to increase activity level. Consider workup for restrictive cardiomyopathy and/or consider referral to [place] as well. (2) Permanent atrial fibrillation: Status: Acute Assessment and Plan: Permanent atrial fibrillation, currently rate controlled. Continue current rate control strategy. Continue full oral anticoagulation, currently on warfarin. Maintain target INR between 2 and 3. Patient can be discharged home with outpatient follow-up. Time Spent With Patient Time: Total time spent is greater than 50% in coordination of care (as documented) at patient's floor/unit and/or counseling patient: Progress Note: Quality Stroke Does the patient have a stroke diagnosis?: No Procedures Date of Service Date of Service: 12/04/21
--- NOTE | 2021-12-04 13:40 | P.DS_ITS ---
DS: Providers Provider Date of Service: 12/04/21 Date of admission: 11/29/21 14:28 Primary care physician: Tawana Bowen NP Consults: 11/29/21 14:26 Consult to Cardiology Routine Consulting Provider: René Lopez Reason for consultation: ADHF, has CardioMEMS in place 12/03/21 10:22 Consult to Nephrology Routine Consulting Provider: Drew Middleton Reason for consultation: NIRAJ, on CKD DS: Diagnosis Discharge Diagnosis (1) Decompensated heart failure: Status: Acute (2) Permanent atrial fibrillation: Status: Acute DS: Summary Hospital Course Hospital Course: Hospital course:patient was admitted because of possible acute diastolic heart failure exacerbation: Patient received IV furosemide drip - diuresed really well, seen by Cardiology - added Jardiance and spironolactone in addition to torsemide.chf exacerbation seem improved . patient is going home with- torsemide, metolazone, spironolactone, Jardiance. Patient initially was also given antibiotic due to suspicion of pneumonia but up after chart review seems like patient had likely CHF Not pneumonia. He does have CardioMEMS device and is closely followed by his math specialist in [place].? Continue the same follow-up.?also p.r.n. medication should be metolazone 2.5 mg when he starts decompensated.? ? Encouraged to increase activity level.? Consider workup for restrictive cardiomyopathy and/or consider referral to [place] as well. his INR is 1.9 today, warfarin adjusted to 3 mg on Sunday only, continue all other days of week warfarin 2.5 mg daily. monitor INR outpatient. patient possibly has CKD- monitor renal function and electrolyte closely outpatient. CHF education given in detail- including diet compliance, fluid management, and if weight gain 2 lb in a week or any new symptoms needs to call outpatient PCP may need adjustment with diuretics. if started leg edema or new symptoms again than p.r.n. metolazone can be used. Plan: continue CHF and management as above- medications are adjusted continue home dose of torsemide, added metolazone p.r.n. in addition to spironolactone and Jardiance. CHF education given in detail as above. INR is borderline- warfarin adjusted as above, monitor INR outpatient. Cardiology may arrange their own appointment, patient is to follow up outpatient with PCP. patient will go home with services. As per the vocational case manager patient already had home services above management discussed with the patient in detail length he understand and in agreement with the plan. Time Spent with Patient Time attestation: Total time spent providing and/or coordinating discharge services: Discharge coordination time: Greater than 30 minutes Quality: Safe Use of Opioids Does Pt have an Active Cancer Diagnosis on the Problem List?: No Quality: Stroke Does the patient have a stroke diagnosis?: No Physical Exam Vital Signs: Vital Signs: Last Vital Signs Temp 98.3 F 12/04/21 11:08 Pulse 68 12/04/21 11:08 Resp 18 12/04/21 11:08 BP 110/64 12/04/21 11:08 Pulse Ox 93 12/04/21 11:08 Oxygen Flow Rate 1 12/03/21 18:01 BMI result Body Mass Index 32.1 Appearance: Alert.? Oriented X3.? not in distress.? cvs: rrr, [id number] , no murmur res: clear to auscultation ,no rhonchii or wheezing abd: no rebound or guarding ,nt, bs present. ext pulses present , no cyanosis . neuro: axo3 , nonfocal. DS: Data Data Completed and Pending Completed studies during hospitalization [Text1]: Procedures Assistance with Respiratory Ventilation, Less than 24 Consecutive Hours, Continuous Positive Airway Pressure (11/01/21) Introduction of Remdesivir Anti-infective into Peripheral Vein, Percutaneous Approach, [employer] (08/19/21) Transfusion of Nonautologous Red Blood Cells into Peripheral Vein, Percutaneous Approach (07/17/21) Labs on day of discharge: Laboratory Results - last 24 hr 12/03/21 12/03/21 12/04/21 15:52 19:32 06:30 PT INR Sodium 136 Potassium 4.9 Chloride 98 Carbon Dioxide 28 Anion Gap 15 BUN 53 H Creatinine 1.85 H Estim Creat Clear Calc 52.8 Estimated GFR 38 POC Glucose 174 H 229 H Random Glucose 149 H Calcium 8.1 L B-Natriuretic Peptide 12/04/21 12/04/21 12/04/21 06:30 06:33 07:01 PT 22.0 H INR 1.9 H Sodium Potassium Chloride Carbon Dioxide Anion Gap BUN Creatinine Estim Creat Clear Calc Estimated GFR POC Glucose 159 H Random Glucose Calcium B-Natriuretic Peptide 173 H 12/04/21 11:10 PT INR Sodium Potassium Chloride Carbon Dioxide Anion Gap BUN Creatinine Estim Creat Clear Calc Estimated GFR POC Glucose 175 H Random Glucose Calcium B-Natriuretic Peptide Additional Comments Additional comments: Conclusions: - Normal left ventricular cavity size.? There is mildly increased left ventricular wall thickness.? The left ventricular systolic? function is moderately decreased.? The visually estimated? ejection fraction is between 30-35%. ? - There is a flattened septum in systole and diastole consistent with right ventricular pressure and volume overload. ? - E/E prime ratio is >15, consistent with elevated filling ? ? ? pressures. ? - Moderately increased right ventricular cavity size.? There is? mild to moderately decreased right ventricular systolic function. - The left atrium is severely dilated. ? - There is mild aortic valve stenosis? - Significantly elevated right atrial pressure.? Severe pulmonary hypertension is present.? Discharge Plan Discharge Patient Disposition: Home Health Service Discharge Diagnosis: chf excerebation Referrals: [facility] [Outside] - 1 Week Tawana Bowen NP [Primary Care Provider] - 1 Week Discharge Medications: New spironolactone 25 mg Tablet 12.5 mg PO DAILY Qty: 30 0RF Protocol: Hold for SBP< HOLD for SBP < : 90 Jardiance 10 mg Tablet 10 mg PO DAILY Qty: 30 0RF metolazone 2.5 mg tablet 2.5 mg PO Q OTHER DAY PRN (Reason: edema) Qty: 15 0RF warfarin 3 mg tablet 3 mg PO LU Qty: 7 0RF Rx Instructions: Take warfarin 3 mg on Sunday Continued atorvastatin 80 mg tablet 1 tab PO BEDTIME 0RF metoprolol succinate 25 mg tablet extended release 24 hr 1 tab PO DAILY 0RF isosorbide mononitrate 60 mg tablet extended release 24 hr 1 tab PO DAILY 0RF torsemide 100 mg tablet 1 tab PO BIDWM 0RF amitriptyline 50 mg tablet 1 tab PO BEDTIME Qty: 0 0RF warfarin 2.5 mg Tablet 2.5 mg PO MOTUWETHFRSA@1800 0RF amlodipine [Norvasc] 10 mg Tablet 10 mg PO DAILY 0RF omeprazole 40 mg capsule,delayed release(DR/EC) 1 cap PO DAILY 0RF potassium chloride 20 mEq tablet,ER particles/crystals 2 tab PO BID 0RF tamsulosin 0.4 mg capsule 2 cap PO DAILY 0RF Lantus Solostar U-100 Insulin 100 unit/mL (3 mL) insulin pen 15 unit subcut BEDTIME 0RF (DME) pen needle, diabetic [BD Ultra-Fine Short Pen Needle] 31 gauge x 5/16 needle See Rx Instructions ea subcut DAILY Qty: 1200 0RF Rx Instructions: As directed Discontinued warfarin 2.5 mg Tablet 5 mg PO LU@1800 0RF torsemide 20 mg tablet 40 mg PO BID PRN (Reason: fluid retention) 0RF Discharge Orders: Discharge Order (Routine); Ordered 12/04/21 Ordered By: Deepak Matson Diet: advance to usual diet, diabetic diet, low fat, low cholesterol and low salt diet Activity on Discharge: As tolerated Stand Alone Forms: Patient Portal Discharge page Print Language: Syrian Care Plan Goals: patient was admitted because of possible acute diastolic heart failure exacerbation: Patient received IV furosemide drip - diuresed really well, seen by Cardiology - added Jardiance and spironolactone in addition to torsemide.chf exacerbation seem improved . patient is going home with- torsemide, metolazone, spironolactone, Jardiance. his INR is 1.9 today, warfarin adjusted to 3 mg on Sunday only, continue all other days of week warfarin 2.5 mg daily. patient possibly has CKD- monitor renal function and electrolyte closely outpatient. CHF education given in detail- including diet compliance, fluid management, and if weight gain 2 lb in a week or any new symptoms needs to call outpatient PCP may need adjustment with diuretics. if started leg edema or new symptoms again than p.r.n. metolazone can be used. moniter bmp/inr outpatiently. above management discussed with the patient in detail length he understand and in agreement with the plan. Health Concerns: As above. Plan of Treatment: As above. Assessment: As above.
--- NOTE | 2021-12-04 13:50 | W.MHC.F2F ---
Service Date Service Date: 12/04/21 Encounter Date of encounter: 12/04/21 Encounter: chf execerbation Reasons for Services Signs and symptoms assessed: shortness of breath Reason for nursing home: CV/CP assess and/or care, medication management, medication treatment and teach disease management MD Overseeing Care: Tawana Bowen Homebound: Leaving the home is medically contraindicated at this time without the asist of a device and/or another person due th the listed conditions above and below. Reason homebound: weakness related to hospital stay Homebound supporting statement: patient had multiple comorbidities and CHF exacerbation need help to go to appointment and monitoring labs . Certification: Based on the above findings, I certify that this patient is confined to the home and needs intermittent nursing home care, physical therapy and/or speech therapy, or continues to need occupational therapy. The patient is under my care, and I have initiated the establishment of the plan of care. The patient will be followed by a physician who will periodically review the plan of care.
--- NOTE | 2021-12-04 14:22 | MHC.CM.PN ---
PT WILL DC HOME TODAY WITH RESUMPTION OF [facility] AND [facility] PROVIDED BY [facility] FOR PT AND SN SERVICES [facility]SP[facility]
== END 2021-12-04 14:23 | disposition home health service (06) | DRG 291 ==
LOC: HO.ED 14:14 → HO.EDOVER 14:45 → HO.IMC 11-30 19:47
PROVIDERS: Hospitalist; Internal Medicine; Physician Assistant Medical; Admitting Provider Family Medicine; Emergency Provider Emergency Medicine; PCP Nurse Practitioner Family; Visit Provider Internal Medicine
DX: I13.0 Hypertensive heart and chronic kidney disease with heart failure and stage 1 through stage 4 chronic kidney disease, or unspecified chronic kidney disease (principal); J18.9 Pneumonia, unspecified organism; J96.21 Acute and chronic respiratory failure with hypoxia; I50.33 Acute on chronic diastolic (congestive) heart failure; Z95.811 Presence of heart assist device; I48.20 Chronic atrial fibrillation, unspecified; N17.9 Acute kidney failure, unspecified; E11.22 Type 2 diabetes mellitus with diabetic chronic kidney disease; N18.30 Chronic kidney disease, stage 3 unspecified; I25.10 Atherosclerotic heart disease of native coronary artery without angina pectoris; E11.40 Type 2 diabetes mellitus with diabetic neuropathy, unspecified; E78.5 Hyperlipidemia, unspecified; E66.9 Obesity, unspecified; Z68.32 Body mass index [BMI] 32.0-32.9, adult; G47.33 Obstructive sleep apnea (adult) (pediatric); I50.810 Right heart failure, unspecified; D45 Polycythemia vera; I27.20 Pulmonary hypertension, unspecified; Z20.822 Contact with and (suspected) exposure to COVID-19; Z86.73 Personal history of transient ischemic attack (TIA), and cerebral infarction without residual deficits; Z79.4 Long term (current) use of insulin; Z79.01 Long term (current) use of anticoagulants; Z79.899 Other long term (current) drug therapy
CPT/HCPCS: 36415; 70450; 71045; 74176; 80048; 80053; 81001; 82803; 82947; 83605; 83690; 83735; 83880; 84145; 84484; 85025; 85610; 87040; 87502; 87635; 93005; 94660; 96365; 96367; 99285; J0456; J0696; J1940

== ENCOUNTER → 2024-02-28 11:49 | Outpatient (RCR) | payer MEDICARE, MEDICAID, SELFPAY ==
[2020-09-16 11:42] VITALS: BP 145/72; PULSE 68; RESP 12; TEMP 36.4; O2SAT 90; BMI 41.3
--- NOTE | 2020-09-16 11:49 | P.PNHO_ITS ---
Medical Summary - Medical Summary Date of Service: 09/16/20 Chief complaint: Follow-up for: Polycythemia vera. Medical Summary: DIAGNOSIS: Polycythemia Vera. CURRENT THERAPY: Intermittent phlebotomy. His last phlebotomy was on January 18, 2016 and before that was in January 2015. Interval History Interval history: This is a pleasant 60 year-old gentleman, here for a follow-up visit. He has been doing quite well. He denies any changes in his medical history nor medications. He actually has a physical coming up with Dr. Melgar in a couple of weeks time. He denies any chest pain. Sometimes he develops shortness of breath on exertion. No cough nor hemoptysis. He denies abdominal pain nausea vomiting heartburn indigestion. His bowels are working without any gross blood in it. He enjoys a good appetite. He has gained some weight. He is in good spirits. Rest of the review of systems is unremarkable. Previous history: At his last visit he mention that, recently he had a spider bite on his left chest. It became infected. He went to the emergency room at [facility]. It had to be drained. They left a drain in. he was sent home on double antibiotics. He went back there today. They had to reopen and drain it. He is supposed to continue the antibiotics. He also mentioned that he had to go to [facility] for a lung biopsy. Apparently a couple of spots were noted on his CT scan of the chest. This came back benign. He is being followed along. Review of Systems - Constitutional Reports no additional constitutional complaints - Eyes Reports no additional eye complaints - ENT Reports no additional ear, nose, mouth, and throat complaints - Cardiovascular Reports no additional cardiovascular complaints - Respiratory Reports no additional respiratory complaints - Gastrointestinal Reports no additional gastrointestinal complaints - Genitourinary Genitourinary: Reports no additional male genitourinary complaints - Musculoskeletal Reports no additional musculoskeletal complaints - Integumentary/Breasts Skin/Breast: Reports no additional skin complaints - Neurologic Reports no additional neurologic complaints - Psychiatric Reports no additional psychiatric complaints - Endocrine Reports no additional endocrine complaints - Hematologic/Lymphatic Reports no additional hematologic/lymphatic complaints - Allergic/Immunologic Reports no additional allergic/immunologic complaints [facility] Medical History: Medical History (Last Updated 09/16/20 @ 11:46 by Saskia Lang) Afib Cataract CHF (congestive heart failure) Cholecystectomy planned Diabetes Heart attack HTN (hypertension) Hyperlipidemia Psychotic disorder Toe amputee Functional capacity: independent ambulation Patient : No Family History: Family History (Last Updated 09/16/20 @ 11:46 by Saskia Lang) Father Diabetes Hx of cancer antigen 125 (CA-125) measurement Mother Diabetes Brother Diabetes Hx of cancer antigen 125 (CA-125) measurement Social History: Social History (Last Updated 09/16/20 @ 11:47 by Saskia Lang) Living Situation History: Household Members: Caregiver Housing: House Alcohol History: Alcohol intake: current Alcohol History Details: Alcohol intake frequency: holiday/special occasion Alcohol type: beer Tobacco History: Smoking Status: Never smoker Substance Use History: Use of substances other than those prescribed or required for medical reasons : No Nutrition Assessment: Patient : No Occupation Assessmet: service: No Current occupational status: disabled Smoking status: Never smoker Oncology Screenings - ECOG Performance Status ECOG Performance Status: 0 Home Medications and Allergies Home Medications Medication Instructions Recorded Confirmed Type Humulin R U-500 (Conc) Insulin 18 unit SUBCUT QAM 05/08/20 09/16/20 History Trulicity 1 mg SUBCUT QWEEK 05/08/20 09/16/20 History amitriptyline 1 tab PO DAILY 05/08/20 09/16/20 History amlodipine-olmesartan 1 tab PO DAILY 05/08/20 09/16/20 History atorvastatin 1 tab PO DAILY 05/08/20 09/16/20 History digoxin 1 tab PO DAILY 05/08/20 09/16/20 History hydralazine 1 tab PO BID 05/08/20 09/16/20 History isosorbide mononitrate 1 tab PO DAILY 05/08/20 09/16/20 History metoprolol succinate 1 tab PO DAILY 05/08/20 09/16/20 History torsemide 20 mg PO DAILY 05/08/20 09/16/20 History warfarin 1 - 3 tab PO DAILY 05/08/20 09/16/20 History Allergies Allergy/AdvReac Type Severity Reaction Status Date / Time No Known Allergies Allergy Unknown NKDA Verified 08/26/20 08:13 Exam Vital signs: Vital Signs Temp 97.6 F 09/16/20 11:42 Pulse 68 09/16/20 11:42 Resp 12 09/16/20 11:42 BP 145/72 H 09/16/20 11:42 Pulse Ox 90 L 09/16/20 11:42 Intake & Output 09/15/20 09/16/20 09/16/20 18:59 06:59 18:59 Other: Weight 134.6 kg Weight in Grams [id number] Weight 134.6 kg Body Mass Index 41.3 - Constitutional Present: no acute distress - Routine HEENT Exam Head: Present: normal inspection Eye: Present: normal appearance ENT: Present: mucous membranes moist - Routine Neck Exam Present: full ROM - Routine Respiratory Exam Present: CTAB - Routine Cardiovascular Exam Cardiovascular: Present: RRR, S1, S2 - Routine Abdominal Exam Present: soft, nontender - Routine Extremities Exam Present: nontender - Routine Back/Spine/Pelvis Exam Back/Spine: Present: full ROM - Routine Skin Exam Present: intact - Routine Neurological Exam Present: alert, oriented X3 - Routine Psychiatric Exam Present: normal affect Data - Labs CBC & Chem 7: 09/16/20 11:59 09/16/20 11:59 Progress Note: A/P (1) Polycythemia vera Status: Acute Assessment and plan: 60 year-old gentleman, with a history of P. Vera. He had been on an intermittent phlebotomy schedule. However lately he has not required any. His hemoglobin is normal today. His last phlebotomy was back in December,. Most likely he has gone through the spent phase. He is under the care of cardiology. Today, his hemoglobin is 16.8. He has been noted to have a couple of pulmonary nodules. Biopsy at [facility] by Dr. Landis: revealed benign findings. PLAN: The plan is to continue to monitor him along. Will closely follow up on his blood and assess need for further phlebotomy. He will return in 3 months for labs. I encouraged him to make sure he uses the oxygen for 24 hours, to have a mortality benefit. He will continue to follow with entry level accountant at [facility]. He will return in 6 months for a followup visit. Thank you, CC: Tawana Bowen. Dr. Jcarlos Melgar. Dr. Santiago. - Time Spent With Patient Total time spent is greater than 50% in coordination of care (as documented) at patient's floor/unit and/or counseling patient: 25 - 35 minutes
[2020-09-16 12:12] LABS: Hematocrit 53.1 % (42-52); Hemoglobin 16.9 g/dl (14.0-18.0); Mean Corpuscular HGB Conc 31.8 g/dl (31.0-36.0); Mean Corpuscular Hemoglobin 26.8 pg (27.0-33.0); Mean Corpuscular Volume 84.3 fL (80-98); Mean Platelet Volume 9.9 fL (9.4-12.4); Platelet Count 291 X10*3/uL (160-400); Red Cell Distribution Width 15.2 % (11.0-16.0); White Blood Count 10.5 X10*3/uL (4.8-10.8)
--- NOTE | 2020-09-16 12:55 | MHC.HEMONCMA ---
Pt present to f/u on p. vera, afib and cva. History reviewed, labs drawn and pt to return in 3 months for labs.
[2020-09-16 13:48] LABS: Alanine Aminotransferase 97 U/L (0-40); Albumin Level 3.8 g/dL (3.5-5.0); Alkaline Phosphatase 167 U/L (39-117); Anion Gap 15 (12-20); Aspartate Amino Transferase 80 U/L (5-37); Blood Urea Nitrogen 78 mg/dL (9-16); Calcium 9.1 mg/dL (8.4-10.2); Carbon Dioxide 23 mmol/L (22-29); Chloride 104 mmol/L (96-108); Estimated Glomerular Filt Rate 25; Glucose Random 308 mg/dL (60-115); Potassium 5.5 mmol/L (3.3-5.1); Sodium 136 mmol/L (135-145); Total Protein 7.9 g/dL (6.5-8.0)
[2020-09-16 13:51] LABS: Ferritin 72 ng/mL (20-250)
== END | disposition home or self-care (01) ==
LOC: HO.ONC 09-16 11:31
PROVIDERS: PCP Internal Medicine; Visit Provider Internal Medicine Medical Oncology
DX: D45 Polycythemia vera (principal); R91.8 Other nonspecific abnormal finding of lung field
CPT/HCPCS: 36415; 80053; 82728; 85027; 99214